=== PATIENT | male | born 1955 | race Caucasian/White ===

== ENCOUNTER 2023-07-31 07:55 | Outpatient (OUT) | payer MEDICARE, OTHER, SELFPAY ==
--- NOTE | 2023-07-31 07:58 | VEIN_ITS ---
Patient Name: JEAN MARIE MAST MR#: [id number] : 1955 Exam Date: 07/31/2023 Ordering Doctor: DR KARUNA MARISCAL D.P.M. RADIOLOGY REPORT PROCEDURE: [facility] - OFFICE VISIT INITIAL COMPARISON: None. PROGRESS NOTES: 68-year-old male who presents with a 3 year history right leg subcutaneous edema which has significantly progressed over the past year: Eating in an episode of cellulitis and abscess along the right medial lower leg requiring hospitalization for IV antibiotics. The patient developed multiple skin ulcerations along the medial right lower leg medial and lateral right ankle. The patient was referred by Dr. Mariscal where he was being treated for gout the patient describes right leg pain swelling and muscle cramps with intermittent pain rated as a 10/10 and muscle cramping primarily during the night. The patient's symptoms are significantly progressed with sitting or standing and are partially relieved by rest, leg elevation and compression wraps/compression stockings which she has worn for several years. The patient denies any signs and symptoms to suggest arterial ischemia. The patient describes a family history of cancer and diabetes in his father. Dementia hypertension and Crohn's disease in his mother. Current medical conditions are significant for gout for which he is on allopurinol, hypertension well controlled with amlodipine. History of kidney stones and hernia repair. See separate history and physical for medication list. No prior treatment for varicose or spider veins. The patient has worn compression wraps and stockings for several years. After review of nurse notes, history and physical exam I discussed at length the pathophysiology of venous hypertension and possible treatments, therapies and strategies available. We discussed at length the importance of elevating the lower extremities above the level of the heart, increased physical activity and compression stocking use. I did discuss with the patient that the amount of swelling on the right is not congruent with the amount of vein disease that he has. Central obstruction should be ruled out. We discussed that his swelling likely was multifactorial and likely related to hypertension, vein disease as well as in the edema.Treatment of the veins would likely improve but not resolve the swelling. We discussed surgical interventions including ligation stripping and phlebectomy. We discussed intravenous laser ablation and micro foam chemical ablation. Risks benefits and alternatives were discussed. The patient and the patient's 's questions were answered. Proper use of the compression stocking was discussed with the patient as well as strategies for reducing subcutaneous edema. Ultrasound venous reflux study performed the same day was discussed at length with the patient. The report demonstrates moderate right and mild left great saphenous vein venous insufficiency. Moderate right and mild left small saphenous vein venous insufficiency. Incompetent perforating veins subjacent to right leg wounds. Moderate right leg incompetent varicose veins PHYSICAL EXAM: The right leg demonstrates marked diffuse edema extending from the inguinal fold to the forefoot with pitting edema below the knee. Extensive erythema and skin thickening with some hemosiderin staining mid to distal lower leg. Recently healed ulcerations medial lateral ankle. There is a 4 x 3 cm eschar along the medial mid lower leg, healing ulceration. Scattered varicose veins. The left leg demonstrates mild scattered varicose veins. No subcutaneous edema, hemosiderin staining or active ulceration Both thighs, legs and feet were symmetrically warm to the touch. Good left posterior tibial and dorsalis pedis pulses . Right posterior tibial and dorsalis pedis pulses could not be palpated likely related to marked edema. VEIN/VC Facility EST Comprehensive IMPRESSION: 1. Moderate right great and small saphenous vein, mild left great and small saphenous vein venous insufficiency with dilatation and saphenofemoral/saphenous popliteal reflux 2. Moderate right incompetent lower extremity varicose veins 3. Marked diffuse right lower extremity subcutaneous edema 4. No definite flow significant arterial disease 5. CEAP: C6, Ep, Asp, Pr PLAN: 1. CT exam of the abdomen and pelvis with IV oral contrast to exclude central venous obstruction of the right leg 2. Endovenous laser ablation right great saphenous vein, right small saphenous vein and right incompetent perforating veins 3. Micro foam chemical ablation right leg incompetent varicose veins 4. Long-term use of bilateral thigh-high 20-30 mm compression stocking on the right 5. Leg elevation and increased physical activity for symptomatic relief Nurse notes, history and physical were reviewed and confirmed, see attached forms. The nurse was present throughout the physical exam and consultation Dictated by: Ari Wilson MD on 07/31/2023 at 10:06 Approved by: Ari Wilson MD on 07/31/2023 at 11:05
--- NOTE | 2023-07-31 07:58 | VEIN_ITS ---
Patient Name: JEAN MARIE MAST MR#: [id number] : 1955 Exam Date: 07/31/2023 Ordering Doctor: DR KARUNA MARISCAL D.P.M. RADIOLOGY REPORT PROCEDURE: VC EXT VENOUS REFLUX SHAINA LMTD COMPARISON: None. INDICATIONS: I83.813 Pain due to varicose veins of bilateral legs TECHNIQUE: Duplex imaging of the lower extremity to assess the deep and superficial venous system for the presence of deep or superficial venous incompetence and to document the location and severity of disease. The study includes evaluation of the great saphenous vein (GSV), anterior accessory saphenous vein (AASV) and small saphenous vein (SSV). Patient scanned in reverse Trendelenburg and standing. FINDINGS: RIGHT LOWER EXTREMITY: Saphenofemoral Junction Reflux: Yes 9.0mm 3.2 sec GSV: Diam (mm) Reflux/ Time (sec) Proximal Thigh 7.2 Yes 2.1 Mid Thigh 7.5 Yes 1.1 Distal Thigh 3.8 Yes 1.5 Prox Calf 3.5 No Mid Calf 3.4 No Saphenopopliteal Junction Reflux: 6.7mm Yes 2.3 SSV: Proximal Calf 6.0 Yes 1.6 Mid Calf 3.3 No AASV: Not present Thrombi: No acute or chronic thrombus visualized Compressibility: Normal Flow: Normal Admin Dir: Area of wound mid/med calf 5.0mm with 3.4s reflux. Prox/med calf 3.7mm with 1.6s reflux. Tech Note: Incompetent SFJ and SPJ. Avascular hypoechoic structure pop fossa 2.1 x 0.8 x 3.5 cm. Patent varicose vein prox/med calf 5.1mm with 1.8s reflux. Patent varicose vein medial knee 5.4mm with 1.2s reflux. Patent varicose vein mid/med thigh 6.5mm with 1.9s reflux. LEFT LOWER EXTREMITY: Saphenofemoral Junction Reflux: Yes 6.6 mm 1.2 sec GSV: Diam (mm) Reflux/Time (sec) Proximal Thigh 6.4 Yes 1.2 Mid Thigh 2.9 No Distal Thigh 3.2 No Prox Calf 3.0 Yes 1.1 Mid Calf 3.2 No Saphenopopliteal Junction Relux: 6.7 mm Yes 0.7 SSV: Proximal Calf 6.6 Yes 0.5 Mid Calf 1.9 No AASV: Not present Thrombi: No acute or chronic thrombus visualized Compressibility: Normal Flow: Rouleaux flow visualized in CFV. Admin Dir: Mid/med calf 3.3mm with 0s reflux. Tech Note: Incompetent SFJ and SPJ. Patent varicose vein mid/med thigh 2.1mm with 0.4s reflux. CONCLUSION: 1. Moderate right and mild left great saphenous vein venous insufficiency with dilatation and saphenofemoral junction reflux 2. Moderate right and mild left small saphenous vein venous insufficiency with dilatation saphenous popliteal junction reflux 3. Incompetent perforating veins subjacent to the patient's right leg wounds 4. Right leg incompetent varicose veins Dictated by: Ari Wilson MD on 07/31/2023 at 09:36 Approved by: Ari Wilson MD on 07/31/2023 at 09:39
== END 2023-07-31 07:56 | disposition home or self-care (01) ==
LOC: VC 07:55
PROVIDERS: PCP Podiatrist Foot & Ankle Surgery; Visit Provider Podiatrist Foot & Ankle Surgery
DX: I83.813 Varicose veins of bilateral lower extremities with pain (principal)
CPT/HCPCS: 93970; G0463

== ENCOUNTER 2023-08-04 07:31 | Outpatient (OUT) | payer MEDICARE, OTHER, SELFPAY ==
--- NOTE | 2023-08-04 | CT_ITS ---
[address] [address] Patient Name: JEAN MARIE MAST MRN: [id number] date: 1955 Sex: M Assigned Patient Location: LAB Current Patient Location: LAB Accession/Order Number: [id number] Exam Date: 08/04/2023 09:18 Report Date: 08/06/2023 08:29 At the request of: CYNTHIA BOWMAN Procedure: CT abdomen pelvis wo/w con EXAMINATION: CT abdomen pelvis wo/w con HISTORY: Compression Vein Lymphedema I89.0 COMPARISON: No relevant comparison available. TECHNIQUE: Axial, Coronal, and Sagittal images were obtained without and/or with IV contrast as indicated by examination type. Dose reduction techniques were achieved by using automated exposure control and/or adjustment of mA and/or kV according to patient size and/or use of iterative reconstruction technique. FINDINGS: LUNG BASES: Bronchiectasis and small area of soft tissue scarring or pleural thickening within left posterior costophrenic angle. LIVER: Incidental large hemangioma within right hepatic lobe, 11.2 cm in maximum diameter. Several benign-appearing cysts, largest is within posterior right hepatic lobe, 6.1 cm. BILIARY: No dilatation or calcification. PANCREAS: No lesion, fluid collection, or abnormal duct dilatation. SPLEEN: No enlargement or focal lesion. ADRENALS: No mass or enlargement. KIDNEYS: Nonobstructing 6 mm stone within right kidney. 3.0 cm cyst projecting from superior pole of left kidney. BOWEL/MESENTERY: No visible mass, obstruction, or bowel wall thickening. AORTA/VASCULAR: No aneurysm or dissection. No significant compression of the right or left iliac veins. RETROPERITONEUM: No mass or adenopathy. LYMPH NODES: No adenopathy. URINARY BLADDER: No visible focal wall thickening, lesion, or calculus. PELVIC ORGANS: No visible mass. Pelvic organs appropriate for patient age. ABDOMINAL WALL: Small fat filled right inguinal hernia without strangulation. BONES: No bony lesion or fracture. OTHER: Negative. CT/CT abdomen pelvis wo/w con IMPRESSION: 1. No compression of the right iliac veins to account for patient's symptoms. 2. Nonobstructing right nephrolithiasis. 3. Small fat filled right inguinal hernia without strangulation. Electronically authenticated by: MERCED LO Date: 08/06/2023 08:29
--- OUTSIDE RECORDS SUMMARY | 2023-08-04 07:35 | XMS_ITS ---
Patient Summarization (C-CDA 2.1 CCD) Created on: August 04, 2023 JEAN MARIE MAST : 1955 Sex: Male Author Organization Sample organization Care Team Providers Care Measurement And Sensing Technician Name Role Phone NONE, XXXX Primary Care Physician Unavailab trena Figueroa MD, Michelle Barlow Primary Care Provider Michelle Figeuroa MD Unavailable Michelle Figueroa Primary Care Physician [phone] Jhonatan Mariscal Admitting Unavailable Dolce, Jhonatan Richardson Attending Unavailable Dolelsie, Jhonatan Richardson Referring Unavailable Arnel Modi Attending Unavailable Taras BARBA Attending Unavailable Courtney BENOIT Attending Unavailable DolJhonatan zimmerman Consulting Unavailable Dwight Eddy Admitting Unavailable OJUKWU, Mbanefo Attending Unavailable Dolce, LALYM Jhonatan Richardson Consulting Unavailable Dolce, Jhonatan Richardson Consulting Unavailable Dolce, Jhonatan Richardson Consulting Unavailable Dolce, Jhonatan Richardson Consulting Unavailable Dolce, Jhonatan Richardson Consulting Unavailable Dolce, Jhonatan Richardson Consulting Unavailable Dolce, Jhonatan Richardson Consulting Unavailable Dolce, Jhonatan Richardson Consulting Unavailable Dolce, Jhonatan Richardson Consulting Unavailable Dolce, Jhonatan Dylan Consulting Unavailable Blank, Jean Marie S Consulting Unavailable Blank, Jean Marie S Consulting Unavailable Blank, Jean Marie S Consulting Unavailable Blank, Jean Marie S Consulting Unavailable Blank, Jean Marie S Consulting Unavailable Blank, Jean Marie S Consulting Unavailable Blank, Jean Marie S Consulting Unavailable Blank, Jean Marie S Consulting Unavailable Blank, Jean Marie S Consulting Unavailable Blank, Jean Marie S Consulting Unavailable DOLCE, JHONATAN Richardson Attending Unavailable MICHELLE FIGUEROA Attending Unavailable DEIDRA MONTOYA Attending Unavailable MICHELLE FIGUEROA Referring Unavailable POCOS, CYNTHIA Parrish Referring Unavailable POCOS, CYNTHIA Parrish Referring Unavailable POCOS, CYNTHIA Parrish Attending Unavailable MICHELLE FIGUEROA Referring Unavailable GERALD PADILLA Attending Unavailable SHERIE HOUGH Attending Unavailable POCTEJINDER, CYNTHIA Parrish Referring Unavailable SHERIE HOUGH Attending Unavailable POCTEJINDER, CYNTHIA Parrish Referring Unavailable ENRIQUETA SOSA Attending Unavailable ENRIQUETA SOSA Referring Unavailable SHERIE HOUGH Attending Unavailable POCOS, CYNTHIA Parrish Referring Unavailable DOLCE, JHONATAN Richardson Attending Unavailable GUZIK, LIZBETH Attending Unavailable POCOS, CYNTHIA Parrish Referring Unavailable MOREIRA, CHRIS Attending Unavailable POCOS, CYNTHIA Parrish Referring Unavailable POCOS, CYNTHIA Parrish Attending Unavailable DOLCE, JHONATAN Richardson Attending Unavailable MOREIRA, CHRIS Attending Unavailable POCOS, CYNTHIA Parrish Referring Unavailable GUZIK, LIZBETH Attending Unavailable POCOS, CYNTHIA Parrish Referring Unavailable PLEASNICK, MICHELE Parrish Attending Unavailab le POCOS, CYNTHIA Parrish Referring Unavailable GUZIK, LIZBETH Attending Unavailable POCOS, CYNTHIA Parrish Referring Unavailable PLEASNICK, MICHELE Parrish Attending Unavailab le POCOS, CYNTHIA Parrish Referring Unavailable PLEASNICK, MICHELE Parrish Attending Unavailab le POCOS, CYNTHIA Parrish Referring Unavailable PLEASNICK, MICHELE Parrish Attending Unavailab le POCOS, CYNTHIA Parirsh Referring Unavailable DOLCE, JHONATAN Richardson Attending Unavailable DOLCE, JHONATAN Richardson Attending Unavailable DOLCE, JHONATAN Richardson Attending Unavailable FIGUEROA, MICHELLE Barlow Attending Unavailable DOLCE, JHONATAN Richardson Attending Unavailable DOLCE, JHONATAN Richardson Attending Unavailable DOLCE, JHONATAN Richardson Attending Unavailable Allergies Allergy Classification Reported Allergen(s) Allergy Type Date of Onset Reaction(s) Facility (6 sources) Aspirin; Translations: [aspirin] Drug Allergy Unknown (qualifier value) [facility] (7 sources) Aluminum aspirin Drug Allergy 3 Hives [facility] Encounters Encounter Date Encounter Type Care Provider Facility Start: 09-12-2023 ambulatory Taras BARBA Facility :[facility] Start: 07-27-2023 End: 07-27-2023 ambulatory JHONATAN BAUTISTACE Not Available Start: 07-25-2023 End: 07-25-2023 ambulatory [facility] Work Phone: Start: 07-25-2023 End: 07-25-2023 Patient encounter procedure [facility] Infectious Disease Work Phone: Start: 07-18-2023 End: 07-18-2023 ambulatory JHONATAN Richardson DOLCE Not Available Start: 07-17-2023 End: 07-17-2023 ambulatory MICHELLE FIGUEROA Not Available Start: 07-11-2023 End: 07-11-2023 ambulatory JHONATAN BAUTISTACE Not Available Start: 07-06-2023 End: 07-10-2023 Evaluation and management of inpatient Jhonatan D Yanira Facility:[facility] [place] [place] Start: 07-06-2023 Emergency department patient visit Arnel Modi Facility:[facility] [place] [place] Start: 07-06-2023 End: 07-10-2023 Evaluation and management of inpatient Dwight Eddy [facility] Start: 07-04-2023 End: 07-04-2023 ambulatory JHONATAN D DOLCE Not Available Start: 07-03-2023 End: 07-04-2023 ambulatory Jhonatan D Dolce Facility:[facility] [place] [place] Start: 07-03-2023 End: 07-03-2023 Patient encounter procedure Jhonatan Mariscal [facility] Start: 07-03-2023 End: 07-03-2023 ambulatory JHONATAN D DOLCE Not Available Start: 06-26-2023 End: 06-26-2023 ambulatory MICHELE A PLEASNICK Not Available Start: 06-19-2023 End: 06-19-2023 ambulatory MICHELE A PLEASNICK Not Available Start: 06-12-2023 End: 06-12-2023 ambulatory MICHELE A PLEASNICK Not Available Start: 06-04-2023 End: 06-05-2023 ambulatory LIZBETH GUZIK Not Available Start: 05-22-2023 End: 05-22-2023 ambulatory MICHELE A PLEASNICK Not Available Start: 05-15-2023 End: 05-15-2023 ambulatory LIZBETH GUKASIAK Not Available Start: 05-07-2023 End: 05-08-2023 ambulatory CHRIS MOREIRA Not Available Start: 05-07-2023 End: 05-07-2023 ambulatory JHONATAN D DOLCE Not Available Start: 05-02-2023 End: 05-02-2023 ambulatory CYNTHIA Parrish POCOS Not Available Start: 05-01-2023 End: 05-01-2023 ambulatory CHRIS MOREIRA Not Available Start: 04-24-2023 End: 04-24-2023 ambulatory LIZBETH GUKASIAK Not Available Start: 04-23-2023 End: 04-23-2023 ambulatory JHONATAN D DOLCE Not Available Start: 04-16-2023 End: 04-17-2023 ambulatory SHERIE HOUGH Not Available Start: 04-10-2023 End: 04-10-2023 ambulatory ENRIQUETA SOSA Not Available Start: 04-10-2023 End: 04-10-2023 ambulatory SHERIE HOUGH Not Available Start: 04-02-2023 End: 04-03-2023 ambulatory SHERIE HOUGH Not Available Start: 04-02-2023 Bamboo flowsheet Gerald martinez MD Work Phone: [facility] Start: 04-02-2023 Bamboo flowsheet Gerald martinez MD Work Phone: [facility] Start: 04-02-2023 End: 04-02-2023 Office outpatient new 30 minutes Gerald Padilla MD Work Phone: [facility] Comment on above: Bilateral tinnitus ( Primary Dx); Sensorineural hearing loss (SNHL), bilateral Start: 04-02-2023 End: 04-02-2023 ambulatory GERALD PADILLA Not Available Start: 03-30-2023 Chart abstracting Gerald rodriguez MD Work Phone: [facility] Start: 03-26-2023 Chart abstracting Cynthia Puga s DO Work Phone: [facility] Start: 03-21-2023 End: 03-21-2023 ambulatory CYNTHIA HENDERSON Not Available Start: 03-21-2023 End: 03-21-2023 Patient encounter procedure Cynthia Henderson DO Work Phone: [facility] Comment on above: Hip pain, bilateral (Primary Dx); Left hip pain; Lumbar spondylosis; Degeneration of lumbar intervertebral disc; Trochanteric bursitis of both hips; Left hip impingement syndrome; Right hip impingement syndrome Start: 03-21-2023 End: 03-21-2023 ambulatory CYNTHIA HENDERSON Not Available Start: 03-20-2023 End: 03-20-2023 ambulatory DEIDRA MONTOYA Not Available Start: 03-13-2023 End: 03-13-2023 ambulatory MICHELLE FIGUEROA Not Available Start: 02-27-2023 End: 02-27-2023 ambulatory JHONATAN MARISCAL Not Available Start: 02-09-2023 End: 02-09-2023 ambulatory JHONATAN MARISCAL Not Available Start: 08-15-2022 End: 08-16-2022 ambulatory Courtney BENOIT Facility[facility] Start: 11-21-2021 End: 11-21-2021 Patient encounter procedure Taras BARBA [facility] Start: 11-15-2021 End: 11-15-2021 Patient encounter procedure Taras BARBA [facility] Immunizations Immunization Date Immunization Notes Care Provider Mercedes perez 07-11-2013 tetanus toxoid, redu troy diphtheria toxoid, and acellular pertussis vaccine, adsorbed Taras JAMESON [facility] Medications Current Medications Medication Drug Class(es) Dates Sig (Normalized) Sig (Original) acetaminophen 325 mg oral tablet (1 source) Start: 07-10-2023 take 2 tablets by mouth every six hours as needed for pain acetaminophen 325 mg Tab 650 mg = 2 tab(s), Oral, q6hr, PRN Pain, Refills(s) 0 Start Date: 07/10/23 Status: Ordered Acidophilus Extra Strength oral capsule (1 source) Start: 07-06-2023 take 1 capsule by mouth once daily Acidophilus Extra Strength oral capsule 1 cap(s), Oral, Daily, Refill(s) 0 Start Date: 07/06/23 Status: Ordered allopurinol 200 mg oral tablet (12 sources) Xanthine Oxidase Inhibitor Start: 07-25-2023 take 200 mg by mouth once daily Allopurinol Active 200 MG PO Daily July 25, 2023 12:00am Start: 11-26-2019 take 2 tablets by mo ut once daily allopurinol 100 mg Tab 200 mg = 2 tab(s), Oral, Daily, Refills(s) 0 Start Date: 11/26/19 Status: Ordered allopurinol (Zyl oprim) 100 MG tablet 1 (one) time each day at the same time. 0 Active amLODIPine 5 mg oral tablet (9 sources) Dihydropyridine Calcium Channel Andres Start: 02-09-2023 End: 02-09-2024 take 5 mg by mouth once daily Amlodipine Active 5 MG PO Daily July 25, 2023 12:00am Centrum Silver (3 sources) Start: 08-03-2015 Centrum Silver Refill(s) 0, Prophylaxis Start Date: 08/03/15 Status: Ordered furosemide 40 mg oral tablet (3 sources) Loop Diuretic Start: 11-26-2019 furosemide 40 mg Tab 40 mg = 1 tab(s), Oral, As Directed, prn swelling, Refills(s) 0 Start Date: 11/26/19 Status: Ordered hydroCHLOROthiazide 25 mg oral tablet (7 sources) Thiazide Diuretic Start: 07-19-2022 take 1 tablet by mouth in the morning hydroCHLOROthiazide (HYDRODiuril) 25 MG tablet Indications: Benign essential HTN (CMS/HCC) Take 1 tablet (25 mg) by mouth in the morning. 90 tablet 2 07/19/2022 Active Lactobacillus acidophilus (1 source) Start: 07-25-2023 take 1 tablet by mouth once daily Lactobacillus Acidophilus (Acidophilus) tablet,chewable Active 1 TAB PO Daily July 25, 2023 12:00am linezolid 600 mg oral tablet (1 source) Oxazolidinone Antibacterial Start: 07-10-2023 End: 07-24-2023 take 1 tablet by mouth every twelve hours Zyvox 600 mg Tab 600 mg = 1 tab(s), Oral, q12hr, X 14 day(s), # 28 tab(s), Refills(s) 0, Pharmacy: [facility], 185.4, cm, 07/06/23 12:13:00 EDT, Height/Length Dosing, 109.4, kg, 07/06/23 12:13:00 EDT, Weight Dosing Start Date: 07/10/23 Stop Date: 07/24/23 Status: Ordered lisinopril 40 mg oral tablet (12 sources) Angiotensin Converting Enzyme Inhibitor Start: 07-25-2023 take 40 mg by mouth once daily Lisinopril Active 40 MG PO Daily July 25, 2023 12:00am Start: 07-06-2023 take 1 tablet by kriby th once daily lisinopril 40 mg Tab 40 mg = 1 tab(s), Oral, Daily, # 90 tab(s), Refills(s) 0 Start Date: 07/06/23 Status: Ordered Start: 11-26-2019 take 2 tablets by [facility] once daily lisinopril 20 mg Tab 40 mg = 2 tab(s), Oral, Daily, Refills(s) 0 Start Date: 11/26/19 Status: Ordered lisinopril 40 MG tablet 1 (one) time each day at the same time. 0 Active meloxicam 15 mg oral tablet (7 sources) Nonsteroidal Anti-inflammatory Drug Start: 03-21-2023 End: 04-20-2023 take 1 tablet by mouth at mealtime meloxicam (Mobic) 15 MG tablet Indications: Lumbar spondylosis , Trochanteric bursitis of both hips Take 1 tablet (15 mg) by mouth in the morning. With food.. 30 tablet 2 03/21/2023 04/20/2023 Active omeprazole 20 mg delayed release oral capsule (12 sources) Proton Pump Inhibitor Start: 07-25-2023 take 20 mg by mouth once daily Omeprazole Active 20 MG PO Daily July 25, 2023 12:00am Start: 07-06-2023 take 1 capsule by [facility] once daily omeprazole 20 mg Cap-DR 20 mg = 1 cap(s), Oral, Daily, Refills(s) 0 Start Date: 07/06/23 Status: Ordered Start: 11-26-2019 Prilosec Refil ls(s) 0 Start Date: 11/26/19 Status: Ordered omeprazole (PriL OSEC) [address] capsule 1 (one) time each day at the same time. 0 Active predniSONE 10 mg oral tablet (9 sources) Start: 03-21-2023 predniSONE (De ltasone) 10 MG tablet Indications: Lumbar spondylosis , Trochanteric bursitis of both hips As directed orally - Take 6 tabs day 1 and 2, 5 tabs day 3 and 4, 4 tabs day 5 and 6, 3 tabs day 7 and 8, 2 tabs day 9 and 10, and 1 tab day 11 and 12. 42 tablet 0 03/21/2023 Active Start: 03-13-2023 End: 03-21-2023 take 2 tablets by mouth in the morning predniSONE (Deltasone) 20 MG tablet Indications: Left hip pain Take 2 tablets (40 mg) by mouth in the morning for 5 days. 10 tablet 0 03/13/2023 03/21/2023 Discontinued (Therapy completed) triamcinolone acetonide 5 mg/ml topical cream (1 source) Corticosteroid Start: 07-25-2023 Triamcinolone Acetonide Active 1 APPLIC TOPICAL Twice daily July 25, 2023 12:00am Payers Date Payer Category Payer Unknown [employer] [facility] [id number] 2022-Present [id number] [facility] [place] [address] [id number] 2021 Medicare [id number] 2021 Medicare MEDICARE MEDICAR E PART B [id number] 2021-[place] [address] [address] Medicare [id number] 2021 Medicare [id number] 1955 Unknown [id number] 2.16.840.1.562549.3.579.2.727 1955 Unknown [id number] 2.16.840.1.811252.3.579.2.727 1955 Unknown [id number] 2.16.840.1.178175.3.579.2.727 1955 Unknown [id number] 2.16.840.1.466817.3.579.2.727 1955 Unknown [id number] 2.16.840.1.166176.3.579.2.125 9 1955 Unknown [id number] 2.16.840.1.649289.3.579.2.125 9 1955 Unknown [id number] 2.16.840.1.791974.3.579.2.125 9 1955 Unknown [id number] 2.16.840.1.039740.3.579.2.125 9 1955 Unknown [id number] 2.16.840.1.285427.3.579.2.125 9 1955 Unknown [id number] 2.16.840.1.174486.3.579.2.125 1956 Unknown [id number] 2.16.840.1.338967.3.579.2.125 1956 Unknown [id number] 2.16.840.1.208726.3.579.2.125 1956 Unknown [id number] 2.16.840.1.039583.3.579.2.125 1956 Unknown [id number] 2.16.840.1.103187.3.579.2.125 1956 Unknown [id number] 2.16.840.1.094807.3.579.2.125 1956 Unknown [id number] 2.16.840.1.096307.3.579.2.125 1956 Unknown [id number] 2.16.840.1.598875.3.579.2.125 1956 Unknown [id number] 2.16.840.1.124925.3.579.2.125 1956 Unknown [id number] 2.16.840.1.680602.3.579.2.125 1956 Unknown [id number] 2.16.840.1.891039.3.579.2.125 1956 Unknown [id number] 2.16.840.1.282450.3.579.2.125 1956 Unknown [id number] 2.16.840.1.526550.3.579.2.125 1956 Unknown [id number] 2.16.840.1.492829.3.579.2.125 9 1956 Unknown [id number] 2.16.840.1.991611.3.579.2.125 9 1956 Unknown [id number] 2.16.840.1.822285.3.579.2.125 9 1956 Unknown [id number] 2.16.840.1.695716.3.579.2.125 9 1956 Unknown [id number] 2.16.840.1.827329.3.579.2.125 9 1956 Unknown [id number] 2.16.840.1.523805.3.579.2.125 9 1956 Unknown [id number] 2.16.840.1.459512.3.579.2.125 9 1956 Unknown [id number] 2.16.840.1.317444.3.579.2.125 9 1956 Unknown [id number] 2.16.840.1.396514.3.579.2.125 9 1956 Unknown [id number] 2.16.840.1.387131.3.579.2.125 9 1955 Unknown [id number] 2.16.840.1.503095.3.579.2.125 9 1956 Unknown [id number] 2.16.840.1.389763.3.579.2.125 9 1956 Unknown [id number] 2.16.840.1.130057.3.579.2.125 9 1955 Unknown [id number] 2.16.840.1.867989.3.579.2.125 9 Unknown Regular Insurance [id number] Plan of Treatment Date Care Activity Detail Author Start: 06-08-2023 Medicare Annual Wellness (AWV) Medicare Annual Wellness (AWV) [facility] Start: 04-23-2023 End: 04-23-2023 Patient encounter procedure 04/23/2023 3:45 PM EST Office Visit [facility] [address] [place] [id number] Cynthia Henderson DO [address] [place] [address] [facility] Start: 04-02-2023 End: 04-02-2023 ambulatory 04/02/2023 6:00 PM EST Evaluation [facility] [address] [place] [phone] Sherie Hough, PT [address] [place] [address] [facility] Start: 04-02-2023 End: 04-02-2023 Patient encounter procedure [facility] Comment on above: Arrived Start: 10-20-2022 Influenza vaccination Influenza Vacc ine (#1) [facility] Start: 02-23-2021 Pneumococcal Vaccine : 65+ Years (1 - PCV) Pneumococcal Vaccine: 65+ Years (1 - PCV) [facility] Start: 1955 Screening for malign ant neoplasm of colon [facility] XR Lumbar spine 2 or 3 Views XR lumbar spine 2 or 3 views Imaging Routine Hip pain, bilateral 03/21/2023 2:51 PM EST [facility] XR Pelvis AP and Hip - bilateral GE 2 Views XR hips bilateral 2 views Imaging Routine Hip pain, bilateral 03/21/2023 2:51 PM EST [facility] Work Phone: Problems Active Problems Problem Classification Problem Date Documented Date Episodic/Chronic Acute and unspecified renal failure (1 source) Acute renal failure syndrome; Translations: [Acute kidney failure, unspecified] Onset: 07-06-2023 Episodic Calculus of urinary tract (19 sources) Kidney stone; Translations: [Calculus of kidney] Onset: 11-21-2021 10-04-2018 Episodic Esophageal disorders (7 sources) Gastroesophageal reflux disease without esophagitis; Translations: [Gastro-esophageal reflux disease without esophagitis] Onset: 08-04-2022 08-04-2022 Chronic Essential hypertension (12 sources) Hypertensive disorder; Translations: [Essential hypertension] Onset: 08-04-2022 09-05-2009 Chronic Gout and other crystal arthropathies (4 sources) Gout 08-01-2015 Chronic Hyperplasia of prostate (13 sources) Benign prostatic hypertrophy with outflow obstruction; Translations: [Benign prostatic hyperplasia with lower urinary tract symptoms] Onset: 11-21-2021 10-04-2018 Chronic Open wounds of extremities (1 source) Open wound of right ankle; Translations: [Unspecified open wound, right ankle, initial encounter] Onset: 07-09-2023 Episodic Other connective tissue disease (2 sources) Bilateral trochanteric bursitis; Translations: [Trochanteric bursitis, right hip] 03-21-2023 Episodic Other diseases of kidney and ureters (3 sources) Urinary tract obstruction; Translations: [Other obstructive and reflux uropathy] Onset: 11-15-2021 Episodic Other ear and sense organ disorders (2 sources) Sensorineural hearing loss, bilateral; Translations: [Sensorineural hearing loss, bilateral] 04-02-2023 Chronic Other ear and sense organ disorders (4 sources) Bilateral tinnitus; Translations: [Tinnitus, bilateral] Onset: 04-02-2023 04-02-2023 Episodic Other nervous system disorders (7 sources) Chronic pain; Translations: [Other chronic pain] Onset: 08-04-2022 08-04-2022 Chronic Other non-traumatic joint disorders (4 sources) Hip pain; Translations: [Pain in right hip] 03-21-2023 Episodic Other non-traumatic joint disorders (4 sources) Enthesopathy of hip region; Translations: [Other specified joint disorders, left hip] 03-21-2023 Episodic Other nutritional; endocrine; and metabolic disorders (1 source) Obesity; Translations: [Obesity, unspecified] Onset: 07-09-2023 Chronic Skin and subcutaneous tissue infections (2 sources) Cellulitis of lower limb; Translations: [Cellulitis of right lower limb] Onset: 07-06-2023 Episodic Spondylosis; intervertebral disc disorders; other back problems (4 sources) Lumbar spondylosis; Translations: [Spondylosis without myelopathy or radiculopathy, lumbar region] 03-21-2023 Chronic Unclassified (4 sources) Asymptomatic microscopic hematuria 11-26-2019 Past or Other Problems Problem Classification Problem Date Documented Da te Episodic/Chronic Genitourinary symptoms and ill-defined conditions (8 sources) Microscopic hematuria; Translations: [Asymptomatic microscopic hematuria] Onset: 11-21-2021 Episodic Procedures Date Procedure Procedure Detail Performing Clinician Start: 03-21-2023 End: 03-21-2023 Radex spine lumbosacral 2/3 views Cynthia Parrish Jessicatejinder DO Work Phone: Start: 09-08-2015 Cysto, left ureteral stent removal, left RGP, left ureteronephroscopy with Holmium laser ablation, multiple basket extraction of stone,fragments, replacement of JJ ureteral stent under fluoroscopic guidance. Taras JAMESON Start: 08-04-2015 Cystoscopy Taras SHAKIRA MOORE Comment on above: Left Stent Insertion Hernia of abdominal cavity (disorder) Taras BARBA Results Test Name Value Interpretation Reference Range Facility Referrals Officeon Referrals Office [id number] [id number]#[id number] TIFF Normal [facility] General Message Officeon General Message Office --- --- --- --- - -- --- --- --- --- From: Archie Hilton To: JEAN MARIE MAST SR Sent: 07/11/23 02:31:06 AM EDT Subject: Discharge Summary Ready to View A summary regarding your recent visit is available in the Documents section of your health record. Normal [facility] Consultation Noteon 07-10-19 Consultation Note Patient: JEAN MARIE MAST SR Age: 68 years Sex: Male : 1955 Associated Diagnoses: None Author: Jean Marie Mccullough M.D History of Present Illness Patient admitted back on the with right lower extremity cellulitis. He had seen Dr. Mariscal earlier in the week and was given Augmentin without significant improvement. Patient had subjective fevers or chills. He had a little that was ultimately ruptured and is growing scant growth growth of coagulase-negative staph. Patient overall is feeling better. Fevers and chills have resolved Review of Systems Constitutional: Negative except as documented in history of present illness. ROS reviewed as documented in chart Health Status Allergies: Allergic Reactions (Selected) Severity Not Documented Aspirin- Unknown. Current medications: Medications (13) Active Scheduled: (8) allopurinol 100 mg Tab [F] 200 mg 2 tab(s), Oral, Daily amLODIPine 5 mg Tab [F] 5 mg 1 tab(s), Oral, Daily ertapenem (Invanz) + Sodium Chloride 0.9% Minibag 50 mL 1,000 mg 1 EA, IV Piggyback, Daily heparin 5,000 units/mL Inj [F] 5,000 unit(s) 1 mL, SubCutaneous, q8hrFT lactobacillus acidophilus and bulgaricus Tab [F] 1 tab(s), Oral, Daily pantoprazole [address] Tab [F] 40 mg 1 tab(s), Oral, Daily vancomycin + Generic Diluent 300 mL 1,500 mg 300 mL, IV Piggyback, q24hr vancomycin PHARMACY TO DOSE [F] PHARMACY TO DOSE, IV, As Directed Continuous: (0) PRN: (5) acetaminophen 325 mg Tab UD [F] 650 mg 2 tab(s), Oral, q6hr Al hydroxide/Mg hydroxide/simethicone 200 mg-200 mg-20 mg/5 mL Oral Susp 30 mL [F] 30 mL, Oral, q6hr hydrALAZINE 20 mg/mL Inj [F] 10 mg 0.5 mL, IV Push, q6hr magnesium hydroxide 8% Oral Susp 30 mL [F] 30 mL, Oral, q6hr ondansetron 2 mg/mL Inj [F] 4 mg 2 mL, IV Push, q6hr Problem list: All Problems Asymptomatic microscopic hematuria / SNOMED CT 7369035639 / Confirmed BPH with urinary obstruction / SNOMED CT 0029846112 / Confirmed kidney stones / SNOMED CT [id number] / Confirmed Histories Past Medical History: Active kidney stones (479381839) Resolved HTN - Hypertension (3052138169): Resolved. Gout ([id number]): Resolved. Family History: Kidney stone Mother Hypertension Mother Diabetes mellitus type 2 Father Procedure history: Cysto, left ureteral stent removal, left RGP, left ureteronephroscopy with Holmium laser ablation, multiple basket extraction of stone,fragments, replacement of JJ ureteral stent under fluoroscopic guidance. on 09/08/2015 at 60 Years. Cystoscopy ([id number]) on 08/04/2015 at 60 Years. Comments: 08/04/2015 17:56 EDT - Maurice ALMAGUER, Marilyn Left Stent Insertion Abdominal hernia ([id number]). Physical Examination Vital Signs 07/10/2023 12:01 EDT Heart Rate Monitored 79 bpm 07/10/2023 12:00 EDT Temperature Axillary 36.3 DegC 07/10/2023 12:00 EDT Systolic Blood Pressure 142 mmHg HI Diastolic Blood Pressure 86 mmHg 07/10/2023 7:50 EDT Temperature Axillary 36.8 DegC VA 07/09/2023 19:21 EDT Temperature Axillary 36.7 DegC 07/09/2023 15:10 EDT Temperature Axillary 36.8 DegC VA 07/09/2023 11:55 EDT Temperature Axillary 36.6 DegC 07/09/2023 7:26 EDT Temperature Axillary 36.8 DegC HI General: Alert and oriented. Eye: Pupils are equal, round and reactive to light. HENT: Normocephalic. Neck: Supple. Respiratory: Lungs are clear to auscultation. Cardiovascular: Normal rate. Gastrointestinal: Soft, Non-tender, Non-distended. Integumentary: Right lower extremity erythematous changes that are raised with bulla rupture noted with serosanguineous drainage. Bruising over the right ankle he states that is from a ankle boot that he was wearing. Some mild swelling noted with warmth noted over the erythematous areas. Demarcated erythematous. Erythematous areas noted his erythematous areas are well-demarcated. Review / Management Results review: All Results 07/09/2023 12:52 EDT Wound Culture POS (In Progress) 07/07/2023 5:35 EDT WBC 8.1 E9/L HGB 13.8 gm/dL Platelet 205.0 E9/L BUN 27 mg/dL HI Creatinine 1.6 mg/dL HI 07/06/2023 12:34 EDT Blood Culture Charcoal NEG (In Progress) 07/06/2023 12:25 EDT Blood Culture Charcoal NEG (In Progress) , Culture RLE: Scant growth of Staphylococcus species coagulase negative. Impression and Plan Diagnosis Erysipelas Right Leg. Course: Progressing as expected. Orders Patient broad-spectrum IV antibiotics. Blood cultures remain negative. Patient clinically improving. Continue to spread that was apparently present has resolved. Well-demarcated areas of skin involvement make infection seem more consistent with erysipelas. Will check ASO titer but it is noted that he has coagulase-negative staph that is growing scantly from the ruptured bulla. ? If this is conlonizer. Either way oral linezolid would be appropriate for discharge for 2 weeks. Patient can follow-up with me 2 weeks at that time we can reevaluate whether or not further antibiotics are needed.. Normal [facility] Comment on above: Result Comment: Elec tronically Signed By: Sadia Shannon, Jean Marie Meier\.br\Date and Time Signed: 07/10/23 14:43 EDT Discharge Instructionson Discharge Instructions [id number] TIFF Normal [facility] Discharge Note-Nursingon Discharge Note-Nursing JEAN MARIE MAST SR, DOB:1955 Visit Date:07/06/2023 Inpatient Discharge Instructions Your Care Team Admitting Physician - Dwight Eddy DO Consulting Physician - Jean Marie Mccullough M.D DPM, Jhonatan Brandon MD, [facility]. Reason for Your Visit pt reports he saw Yanira in this last week for cellulitis of RLE. Pt reports on ABX and not improving. Yanira told him to come to ED due to no improvement in infection. Chills and fevers sunday. denies n/v. Your Diagnosis Cellulitis of right leg Wound of right ankle Acute kidney injury Obese HTN (hypertension) BPH with urinary obstruction Cellulitis - Leg Lower leg pain-swelling Other obstructive and reflux uropathy Tests Performed ASO Titer -- Results Pending -- Vancomycin Level Trough -- Results Pending -- MRI Foot w/ + w/o Contrast Right MRI Tibia/Fibula w/ + w/o Contrast Right XR Foot 3+ Views Right XR Tib/Fib Right 2 View Please visit your patient portal for your results or contact your primary care physician. This Is Your Medications List acetaminophen (acetaminophen 325 mg Tab) allopurinol (allopurinol 100 mg Tab) amlodipine (amLODIPine 5 mg Tab) lactobacillus acidophilus (Acidophilus Extra Strength oral capsule) linezolid (Zyvox 600 mg Tab) lisinopril (lisinopril 40 mg Tab) omeprazole (omeprazole 20 mg Ruddy-) [Image Removed: STOP]Stop taking these medications hydrochlorothiazide (hydrochlorothiazide 25 mg Tab) meloxicam (meloxicam 15 mg Tab) Procedure History Cysto, left ureteral stent removal, left RGP, left ureteronephroscopy with Holmium laser ablation, multiple basket extraction of stone,fragments, replacement of JJ ureteral stent under fluoroscopic guidance. (09/08/2015), Cystoscopy (08/04/2015), Abdominal hernia. Discharge Vitals Temperature (Axillary) 36.3 ?C Heart Rate (Monitored) 79 Respiratory Rate 18 Blood Pressure 142/86 Weight 108.3 kg What to do next Instructions From Your Doctor Event Name Event Result Discharge Activity Ambulate as tolerated, Activity as tolerated Discharge Diet(s) Low Sodium- 2000 mg Pending Diagnostic Test Results Wound culture Pharmacy Information [facility] Previously Scheduled Follow-Up Appointments Sunday 3:30 PM EDT With: JAMESON SUH, Taras Duncan Where: [facility] Inpatient Clinical Summaryon 07-10-2023 Inpatient Clinical Summary [address] [address] Clinical Summary Person Information: Name: JEAN MAREI MAST SR Age: 68 Years : 1955 Sex: Male PCP: Michelle Figueroa MD Marital Status: Race: White Ethnicity: Non- or Language: Nigerien Visit Id: Visit Reason: Cellulitis - Leg; Lower leg pain-swelling; SENT BY DR MARISCAL, LEG PAIN Speciality: Acuity: Enc Type: Inpatient Med Service: Medical Arrival: 07/06/2023 12:00:42 Discharge: Dispo Type: Admitted as IP to this [facility] Address: [address] [place] [address] Provider Notes: Diagnosis: 1:Cellulitis of right leg; 2:Wound of right ankle; 3:Acute kidney injury; 4:Obese; 5:HTN (hypertension); 6:BPH with urinary obstruction; Other obstructive and reflux uropathy Problems Active Asymptomatic microscopic hematuria kidney stones BPH with urinary obstruction Smoking Status: Former Smoker Functional Status: Sensory Deficits: History of Falls: Mobility Assistance Prior to Admission: ADLs: Independent Current Level of Assistance for Self-Care/Mobility: Cognitive Status: Oriented x 3 Allergies aspirin (Unknown) Measurements: Height: 185 cm Weight: 108.6 kg Blood Pressure: 142 mmHg / 86 mmHg BMI: 32.55 kg/m2 Procedures No Procedures Documented Immunizations No Immunizations Documented This Visit Final Med List: acetaminophen (acetaminophen 325 mg Tab) 2 Tablets By Mouth every 6 hours as needed Pain. allopurinol (allopurinol 100 mg Tab) 2 Tablets By Mouth every day. amlodipine (amLODIPine 5 mg Tab) 1 Tablets By Mouth every day. lactobacillus acidophilus (Acidophilus Extra Strength oral capsule) 1 Capsules By Mouth every day. linezolid (Zyvox 600 mg Tab) 1 Tablets By Mouth every 12 hours for 14 Days. Refills: 0. lisinopril (lisinopril 40 mg Tab) 1 Tablets By Mouth every day. omeprazole (omeprazole 20 mg Cap-DR) 1 Capsules By Mouth every day. Care Team Members: Attending Physician: Dwight Eddy DO Consulting Physician: Aleksandr SUH, Dixie Cartagena; Jhonatan Mariscal DPM; Jean Marie Mccullough M.D Referring Physician: Follow up: With: Address: When: Dixie Brandon [address] [place] [address] Business (1) Within 1 to 2 weeks Comments: Call for followup appointment With: Address: When: Jean Marie Mccullough [address] [place] [address] Business (1) 07/23/2023 1:45 PM With: Address: When: Michelle Figueroa [address] [place] [address] Business (1) 07/17/2023 10:00 AM With: Address: When: [facility]honatan [facility], [address] [place] [address] [address], [place] [address] 07/11/2023 8:20 AM Type Location Start [facility] Office Visit [facility] 09/12/2023 3:30 PM 09/12/2023 3:45 PM Confirmed Patient Education Information: Cellulitis, Adult, Estu-tu-Pcsz Normal [facility] Inpatient Patient Summaryon 07-10-2023 Inpatient Patient Summary [address] [address] Patient Discharge Instructions PERSON INFORMATION Name: JEAN MARIE MAST SR Date of : 1955 Current Date: 07/10/2023 15:42:24 PHYSICIANS Admitting Physician: Dwight Eddy DO Primary Care Physician: Michelle Figueroa MD PCP Comment: Discharge Diagnosis: 1:Cellulitis of right leg; 2:Wound of right ankle; 3:Acute kidney injury; 4:Obese; 5:HTN (hypertension); 6:BPH with urinary obstruction; Other obstructive and reflux uropathy Condition at Discharge: Improved JEAN MARIE MAST SR has been given the following list of follow-up instructions, prescriptions, and patient education materials: PATIENT FOLLOW-UP INFORMATION Diet: Low Sodium- 2000 mg Discharge Activity: Ambulate as tolerated, Activity as tolerated Discharge Restrictions: Wound Care Instructions: Remove Your Dressing In Days Call Your Doctor For: IF UNABLE TO CONTACT YOUR PHYSICIAN AND YOU FEEL IT IS AN EMERGENCY, GO TO THE NEAREST EMERGENCY ROOM OR CALL 911 Home Treatment: Devices/Equipment: None Special Services: Additional Instructions: Primary Care Physician to provide the following pending test results: Wound culture Follow up: With: Address: When: Dixie Brandon [address] [place] [id number] Business (1) Within 1 to 2 weeks Comments: Call for followup appointment With: Address: When: Jean Marie Mccullough [address] [facility] [place], [place] [id number] Business (1) 07/23/2023 1:45 PM With: Address: When: Michelle Figueroa [address] [place] [address] Business (1) 07/17/2023 10:00 AM With: Address: When: Jhonatan Yanira RENZO - [facility], [facility], [address], [place] [address] 07/11/2023 8:20 AM In the event that this physician does not participate in your insurance network, please consult with your insurance company to find a nearby participating provider. Type Location Start [place] [facility] Office Visit [facility] [place] [place] LIZETH [place] 09/12/2023 3:30 PM 09/12/2023 3:45 PM Confirmed Comment: PRO Acevedo SR, MICHAEL, have received the attached patient education materials/instructions and have verbalized understanding: Patient Signature Date Clinican/Nurse Signature _ Date HERE ARE THE MEDICATION CHANGES THAT OCCURRED DURING YOUR HOSPITAL STAY New Medications [facility] 1985, [address] [facility][[address] 3] [place], [place] [id number], [phone] linezolid (Zyvox 600 mg Tab) 1 Tablets By Mouth every 12 hours for 14 Days. Refills: 0. Last Dose: __Next Dose: __ Other Medications acetaminophen (acetaminophen 325 mg Tab) 2 Tablets By Mouth every 6 hours as needed Pain. Last Dose: __Next Dose: __ Medications to Continue with No Changes Other Medications allopurinol (allopurinol 100 mg Tab) 2 Tablets By Mouth every day. Last Dose: __Next Dose: __ amlodipine (amLODIPine 5 mg Tab) 1 Tablets By Mouth every day. Last Dose: __Next Dose: __ lactobacillus acidophilus (Acidophilus Extra Strength oral capsule) 1 Capsules By Mouth every day. Last Dose: __Next Dose: __ lisinopril (lisinopril 40 mg Tab) 1 Tablets By Mouth every day. Last Dose: __Next Dose: __ omeprazole (omeprazole 20 mg Cap-DR) 1 Capsules By Mouth every day. Last Dose: __Next Dose: __ No Longer Take the Following Medications hydrochlorothiazide (hydrochlorothiazide 25 mg Tab) 1 Tablets By Mouth every day. meloxicam (meloxicam 15 mg Tab) 1 Tablets By Mouth every day. Comment: MEDICATION LIST PROVIDED FOR YOU IS A LIST OF YOUR CURRENT MEDICATIONS. PLEASE CARRY THIS WITH YOU AT ALL TIMES. acetaminophen (acetaminophen 325 mg Tab) 2 Tablets By Mouth every 6 hours as needed Pain. allopurinol (allopurinol 100 mg Tab) 2 Tablets By Mouth every day. amlodipine (amLODIPine 5 mg Tab) 1 Tablets By Mouth every day. lactobacillus acidophilus (Acidophilus Extra Strength oral capsule) 1 Capsules By Mouth every day. linezolid (Zyvox 600 mg Tab) 1 Tablets By Mouth every 12 hours for 14 Days. Refills: 0. lisinopril (lisinopril 40 mg Tab) 1 Tablets By Mouth every day. omeprazole (omeprazole 20 mg Cap-DR) 1 Capsules By Mouth every day. Pharmacy Information: [facility] Comment: PATIENT EDUCATION INFORMATION Instructions: Cellulitis, Adult Cellulitis is a skin infection. The infected area is often warm, red, swollen, and sore. It occurs most often in the arms and lower legs. It is very import (more content not included)... [facility] Interdisciplinary Note - Justin e Manageron 07-10-2023 Interdisciplinary Note - Steam Hoist Operator Pt is asleep in bed, no family present. Previously rounded with Dr. Urena and aware of plan for ID to see today and possible DC home later today, Contact information provided and white board updated. previously declined any concerns or DC needs. CRM following CRM returned to pt room, pt and just met with Dr. Mccullough. Aware of plan for oral antibiotic Linzolid at [place], and plan to DC home today. Pt and are agreeable to plan, and declines any further concerns or needs. Per Dr. Mccullough , Linzolid will need to be check for availability and check to see if need prior auth. CRM will check and update pt once known. Nursing updated. CRM returned call to pt room, updated on Linzolid cost checked at pt preferred [facility], with his insurance was over $400, but with good rx will be down to $51.50 and they have in stock currently. Pt updated on cost and pt is ok with cost. Nursing updated on DC plan [facility] Comment on above: Result Comment: Elec tronically Signed By: Chasidy ALMAGUER, Alaina\.joelle\Date and Time Signed: 07/10/23 15:15 EDT Monitor Recordon 07-10-2023 Monitor Record [id number] TIFF [facility] Monitor Record [id number] TIFF [facility] Progress Note-Physicianon Progress Note-Physician Assessment/Plan 68-year-old male with history of hypertension, gout, kidney stones, GERD presented with complaints of right leg swelling, redness, pain, that failed outpatient treatment with oral antibiotics developed a fever and nausea and was admitted with acute cellulitis of the right leg secondary to infected right ankle wound, acute kidney injury, 1. Cellulitis of right leg (L03.115: Cellulitis of right lower limb) Acute cellulitis of the right leg?involving the ankle and foot. Present on admission. Treating with IV Invanz and vancomycin. Seen by printing machine mechanic and had a bedside incision and drainage of blister/bullae. Status post wound dressing. MRI does not show any deep tissue abscess of bone involvement/osteomyelit is. Infectious disease consult pending. Vascular surgery consult?can be done as outpatient. Ordered: [facility] Hospital Care/Day Moderate 35 Minutes 31520 2. Wound of right ankle (S91.001A: Unspecified open wound, right ankle, initial encounter) Continue wound dressings. Wound cultures so far not isolating any organisms. Ordered: [facility] Hospital Care/Day Moderate 35 Minutes 06884 Wound Culture 3. Acute kidney injury (N17.9: Acute kidney failure, unspecified) Acute kidney injury?secondary to ATN from above infection, diuretics and lisinopril. Improved. Lisinopril and hydrochlorothiazide suspended. Treated with IV fluid. Ordered: [facility] Hospital Care/Day Moderate 35 Minutes 66134 4. Obese (E66.9: Obesity, unspecified) Recommend therapeutic lifestyle modification changes. Ordered: [facility] Hospital Care/Day Moderate 35 Minutes 52708 5. HTN (hypertension) (I10: Essential (primary) hypertension) On amlodipine. 6. BPH with urinary obstruction (N40.1: Benign prostatic hyperplasia with lower urinary tract symptoms) Supportive care. Disposition: Home soon pending infectious disease consult. I discussed the diagnosis and plan of care with the patient at the bedside. Moderate level of MDM based on addressing above issues. This documentation was transcribed using voice recognition software. Several attempts were made to ensure accuracy. However inadvertent computerized wood shingle roofer errors may be present. Elvira Urena. Hospitalist. Orders: ertapenem + Sodium Chloride 0.9% intravenous solution 50 mL, 1,000 mg = 1 EA, Injection, IV Piggyback, Daily, Start date 07/10/23 9:00:00 EDT, 100 mL/hr, Infuse over 30 minute(s) ertapenem + Sodium Chloride 0.9% intravenous solution 50 mL, 1,000 mg = 1 EA, Injection, IV Piggyback, Once, Stop date 07/09/23 13:00:00 EDT, Start date 07/09/23 13:00:00 EDT, 100 mL/hr, Infuse over 30 minute(s) Subjective Seen and examined. Complains of right leg/foot pain only when he walks around. Had a bedside incision and drainage of the blister/bullae of his right leg on 07/09/2023. Objective Vitals & Measurements T: 36.3 ?C(Axillary) TMIN: 36.3 ?C(Axillary) TMAX: 36.8 ?C(Axillary) HR: 79(Monitored) RR: 18 BP: 142/86 SpO2: 95% WT: 108.3 kg Intake & Output No qualifying data available. Physical Exam General: alert, no acute distress, sitting in a chair with legs elevated. Skin: warm, dry Head: no trauma, normocephalic Neck: Trachea midline, no adenopathy, no tenderness Eye: normal conjunctiva, sclera clear ENMT: TM's clear, oral mucosa moist, no pharyngeal erythema or exudate Cardiovascular: regular rate and rhythm, normal peripheral perfusion Respiratory: Lungs CTA, respirations non labored Chest wall: no deformity. Gastrointestinal: soft, non distended, no tenderness, no guarding. Back: No tenderness, Normal ROM, Normal alignment. Extremities: no deformity, no trauma, right leg wound dressing intact. Reducing right leg swelling and erythema. Neurological: oriented x 4, LOC appropriate for age, CN II-XII intact, motor strength equal & normal bilaterally, sensation equal & normal bilaterally, speech normal Psychiatric: cooperative, affect appropriate for age, normal judgement, normal psychiatric thoughts. Lab Results Vanco Tr: 9 mcg/mL Low (07/09/23 12:46:00) Diagnostic Results (07/09/2023 11:48 EDT MRI Tibia/Fibula w/ + w/o Contrast Right) * Final Report * Reason For Exam Cellulitis POWERSCRIBE REPORT IMPRESSION: Diffuse subcutaneous edema of the right lower leg and right foot, with areas of skin thickening, overall suggestive of cellulitis. No evidence for osteomyelitis. No loculated collection. HISTORY: Right lower leg and right foot swelling for one week. History of gout. Cellulitis. Concern for infection, abscess. TECHNIQUE: Routine MRI of the right tibia/fibula, with and without contrast and MRI of the right foot with and without contrast. Given 10 mL of intravenous Vueway. COMPARISON: Radiographs 07/08/2023. Ultrasound 07/03/2023. RESULT: Right tibia/fibula: [1] Problem List/Past Medical History Ongoing Asymptomatic microscopic hematuria BPH with urinary obstruction kidney stones Histori (more content not included)... Normal [facility] Comment on above: Result Comment: Elec tronically Signed By: AYANNA SUH, Elvira\.br\Date and Time Signed: 07/10/23 12:09 EDT BMPon 07-09-2023 Anion gap [Moles/Vol] 8 mmol/L Normal 6-16 [facility] Comment on above: Performed By: #### 2 [id number] #### [facility] [address] [place] [address] Calcium [Mass/Vol] 8.2 mg/dL Low 8.9-11.1 [facility] Comment on above: Performed By: #### 2 [id number] #### [facility] [address] [place] [address] Chloride [Moles/Vol] 108 mmol/L Normal 101-111 [facility] Comment on above: Performed By: #### 2 [id number] #### [facility] [address] [place] [address] CO2 [Moles/Vol] 27 mmol/L Normal 21-31 [facility] Comment on above: Performed By: #### 2 [id number] #### [facility] [address] [place] [address] Creatinine [Mass/Vol] 1.4 mg/dL High 0.5-1.3 [facility] Comment on above: Performed By: #### 2 [id number] #### [facility] [address] [place] [address] Glucose [Mass/Vol] 109 mg/dL Normal 55-199 [facility] Comment on above: Performed By: #### 2 [id number] #### [facility] [address] [place] [address] Potassium [Moles/Vol] 3.8 mmol/L Normal 3.5-5.3 [facility] Comment on above: Performed By: #### 2 [id number] #### [facility] [address] [place] [address] Sodium [Moles/Vol] 139 mmol/L Normal 135-145 [facility] Comment on above: Performed By: #### 2 [id number] #### [facility] [address] [place] [address] Urea nitrogen [Mass/Vol] 16 mg/dL Normal 5-21 [facility] Comment on above: Performed By: #### 2 [id number] #### [facility] [address] [place] [address] Urea nitrogen/Creatinine [Mass ratio] 11 No Units Normal 10-20 [facility] Comment on above: Performed By: #### 2 [id number] #### [facility] [address] [place] [address] CHEMISTRYOrdered By: SYSTEM SYSTEM on 07-09-2023 Anion gap [Moles/Vol] 8 mmol/L Normal 6 - 16 mEq/L R emisol Chem Calcium [Mass/Vol] 8.2 mg/dL Low 8.9 - 11. 1 mg/dL Remisol Chem Chloride [Moles/Vol] 108 mmol/L Normal 101 - 1 11 mmol/L Remisol Chem CO2 [Moles/Vol] 27 mmol/L Normal 21 - 31 mmol/L [facility] Creatinine [Mass/Vol] 1.4 mg/dL High 0.5 - 1.3 mg/dL Remisol Chem eGFR 55 mL/min/1.73 m2 Low >=59mL/min /1 .73 m2 Rem[facility] Glucose [Mass/Vol] 109 mg/dL Normal 55 - 199 mg/dL [facility] Potassium [Moles/Vol] 3.8 mmol/L Normal 3.5 - 5.3 mmol/L [facility] Sodium [Moles/Vol] 139 mmol/L Normal 135 - 145 mmol/L [facility] Urea nitrogen [Mass/Vol] 16 mg/dL Normal 5 - 21 mg/dL [facility] Urea nitrogen/Creatinine [Mass ratio] 11 mg/mg Normal 10 - 20 [facility] Vanco Tr 9 microgram/mL Low 10 - 20 mcg/mL Remisol Chem Interdisciplinary Note - Justin e Manageron 07-09-2023 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 Pt is from home with and is normally independent , declines any concerns or DC needs, Inpatient status reviewed, Medicare rights form signed by and original provided. Pending MRI, Podiatry and Vascular to see. Contact information provided and white board updated. PCP verified with and insurance information reviewed. CRM following for needs. Normal [facility] Comment on above: Result Comment: Elec tronically Signed By: Chasidy ALMAGUER, Alaina\.br\Date and Time Signed: 07/09/23 11:37 EDT MRI Foot w/ + w/o Contrast R ighton 07-09-2023 MRI Foot w/ + w/o Contrast Right Exam Date/Time: 07/09/2023 11:48 EDT Reason for Exam: Cellulitis Report Refer to concurrent right tibia/fibula MRI dictation. Ordering Provider: Jhonatan Mariscal FINAL REPORT Dictated: 07/09/2023 12:22 pm Serg Beach MD Signed (Electronic Signature): 07/09/2023 12:22 pm Signed by: Serg Beach MD Transcribed by: LALY Technologist: BENITA Technical Comments Vueway Contrast amount in ml's: 10 Normal [facility] MRI Tibia/Fibula w/ + w/o Co ntrast Righton 07-09-2023 MRI Tibia/Fibula w/ + w/o Contrast Right Exam Date/Time: 07/09/2023 11:48 EDT Reason for Exam: Cellulitis Report IMPRESSION: Diffuse subcutaneous edema of the right lower leg and right foot, with areas of skin thickening, overall suggestive of cellulitis. No evidence for osteomyelitis. No loculated collection. HISTORY: Right lower leg and right foot swelling for one week. History of gout. Cellulitis. Concern for infection, abscess. TECHNIQUE: Routine MRI of the right tibia/fibula, with and without contrast and MRI of the right foot with and without contrast. Given 10 mL of intravenous Vueway. COMPARISON: Radiographs 07/08/2023. Ultrasound 07/03/2023. RESULT: Right tibia/fibula: Bone Marrow: No evidence for fracture, osteomyelitis, or marrow replacing process. Joint: Large innnf-ri-ucxv imaging of the knee with degenerative changes with subchondral cystic change, probable tearing of the medial lateral meniscus, probable tearing of ACL, but overall not well evaluated on the large stvon-fq-eonw. Muscle: Mild diffuse fatty infiltration of the musculature. Otherwise grossly unremarkable. Tendon: Visualized tendons appear intact. Subcutaneous Tissue: Diffuse subcutaneous edema with areas of skin thickening. No distinct loculated collection. Varicose vessels. Other: No suspicious enhancement after contrast. Right foot: No evidence for acute fracture, osteomyelitis, or marrow replacing process. Diffuse subcutaneous edema with areas of skin thickening. No distinct loculated collection. Degenerative changes, especially involving the first MTP joint with subchondral cystic change and also the first tarsometatarsal joint. Bipartite tibial hallux sesamoid. Visualized tendons grossly intact within limits of large gbgsu-ko-rgpd. Small amount of increased fluid at the knot of Jose, possible tenosynovitis or physiologic fluid. Mild distal Achilles tendinosis, with associated enthesophyte at insertion, without tear. Mild plantar fasciitis with associated enthesophyte at Report insertion, without tear. Mild diffuse muscle atrophy. No suspicious enhancement after contrast. Ordering Provider: Jhonatan Mariscal FINAL REPORT Dictated: 07/09/2023 12:22 pm Serg Beach MD. Signed (Electronic Signature): 07/09/2023 12:22 pm Signed by: Serg Beach MD Transcribed by: LALY Technologist: BENITA Technical Comments Vueway Contrast amount in ml's: 10 Normal [facility] Message from Medicareon 06-20 Message from Medicare [id number]. [id number]#1.00T IFF Normal [facility] Message from Medicare [id number]. [id number]#[id number] IFF Normal [facility] Monitor Recordon 07-09-2023 Monitor Record [id number]#[id number] TIFF Normal [facility] Monitor Record [id number]#1.00 TIFF Normal [facility] Monitor Record [id number]#1.00 TIFF Normal [facility] Monitor Record [id number]#1.00 TIFF Normal [facility] No Panel InformationOrdered By: Maty Felix on 07-09-2023 GS No organisms seen. [facility] Wound Culture Scant growth of Staphylococcus species coagulase negative [facility] Progress Note - Pharmacyon 0 07-09-2023 Progress Note - Pharmacy Vancomycin Pharmacy to Dose Consult Note Indication: Skin and Skin Structure Infection Goal Range: AUC/EILEEN: 400 - 600 RECOMMENDATIONS/PLAN: Pharmacy consulted for vancomycin dosing for JEAN MARIE MAST SR, a 68 Years old, Male who is being treated with vancomycin for cellulitis. 1. VANCO STATUS: Vancomycin therapy is still active, today is day 4 of treatment. Patient is receiving Vancomycin 1500mg IV q24h. 2. VANCO LEVEL: The most recent vancomycin levels were: Peak 27 mcg/mL drawn at 1711 on 07/07 and Trough 9 mcg/mL drawn at 1246 on 07/08. Based on these levels the AUC is 417. These levels were drawn on day 4 of therapy. 3. DOSING RECS: The vancomycin AUC is therapeutic, no dosing adjustments will be made at this time. 4. NEXT LEVEL: The next level is scheduled for 1300 on 07/11. 5. MRSA NASAL SWAB? A MRSA Nasal Swab is not appropriate at this time. We will follow patient renal function, vancomycin levels and doses with you during the course of therapy. Additional recommendations will appear in follow up notes. If you have any questions, please contact the pharmacy at extension [phone]. Age: 68 Years Allergies: aspirin Weight: Last Documented Weight and Type of Scale Used Last Documented Weight Weight Measured: 108.6 kg (07/08/23 06:00:00) Type of Scale Used Weight Measured Type of Scale: Bed Scale (digital) (07/06/23 12:08:00) Height: Last Documented Height/Length Last Documented Height/Length Height/Length Measured: 185 cm (07/06/23 16:26:00) CrCl: 66.4mL/min SCr: 1.4 mg/dL Labs: Glucose Lvl: 109 mg/dL (07/09/23 05:12:00) BUN: 16 mg/dL (07/09/23 05:12:00) Creatinine: 1.4 mg/dL High (07/09/23 05:12:00) eGFR: 55 mL/min/1.73 m2 Low (07/09/23 05:12:00) BUN/Creat Ratio: 11 (07/09/23 05:12:00) Sodium Lvl: 139 mmol/L (07/09/23 05:12:00) Potassium Lvl: 3.8 mmol/L (07/09/23 05:12:00) Chloride: 108 mmol/L (07/09/23 05:12:00) CO2: 27 mmol/L (07/09/23 05:12:00) AGAP: 8 mEq/L (07/09/23 05:12:00) Calcium Lvl: 8.2 mg/dL Low (07/09/23 05:12:00) Vanco Tr: 9 mcg/mL Low (07/09/23 12:46:00) Vanco Pk: 27 mcg/mL (07/08/23 17:11:00) Normal [facility] Progress Note-Physicianon Progress Note-Physician Assessment/Plan 68-year-old male with history of hypertension, gout, kidney stones, GERD presented with complaints of right leg swelling, redness, pain, that failed outpatient treatment with oral antibiotics developed a fever and nausea and was admitted with acute cellulitis of the right leg secondary to infected right ankle wound, acute kidney injury, 1. Cellulitis of right leg (L03.115: Cellulitis of right lower limb) Acute cellulitis of the right leg involving ankle and foot. Present on admission. Podiatry consult reviewed by me. I appreciate and agreed recommendations. Patient will undergo MRI of the lower extremity to evaluate for deep tissue infection and abscess formation. Meanwhile continue on IV vancomycin and added IV Invanz for broader coverage pending MRI. Vascular surgery consult pending. Ordered: ertapenem + Sodium Chloride 0.9% intravenous solution 50 mL, 500 mg = 0.5 EA, IV Piggyback, Daily, Routine, Start date 07/10/23 9:00:00 EDT, 100 mL/hr, Infuse over 30 minute(s), 07/09/23 12:12:00 EDT [facility] Care/Day Moderate 35 Minutes 78033 2. Wound of right ankle (S91.001A: Unspecified open wound, right ankle, initial encounter) Present during this admission. Wound culture. MRI of the foot pending. Ordered: ertapenem + Sodium Chloride 0.9% intravenous solution 50 mL, 500 mg = 0.5 EA, IV Piggyback, Daily, Routine, Start date 07/10/23 9:00:00 EDT, 100 mL/hr, Infuse over 30 minute(s), 07/09/23 12:12:00 EDT [facility] Hospital Care/Day Moderate 35 Minutes [id number] Wound Culture 3. Acute kidney injury (N17.9: Acute kidney failure, unspecified) Acute kidney injury?secondary to ATN from above infection, diuretic and lisinopril. Improved. Avoid nephrotoxic drugs. Lisinopril and hydrochlorothiazide suspended. Treated with IV fluid. Ordered: [facility] Care/Day Moderate 35 Minutes 44522 4. Obese (E66.9: Obesity, unspecified) Recommend therapeutic lifestyle modification changes. Ordered: [facility] Care/Day Moderate 35 Minutes 48810 5. HTN (hypertension) (I10: Essential (primary) hypertension) Blood pressure controlled. On amlodipine. 6. BPH with urinary obstruction (N40.1: Benign prostatic hyperplasia with lower urinary tract symptoms) Supportive care. Disposition: Pending MRI of the right lower extremity and vascular surgery consult. I discussed the diagnosis and plan of care with the patient at the bedside. Moderate level of MDM based on addressing above issues. This documentation was transcribed using voice recognition software. Several attempts were made to ensure accuracy. However inadvertent computerized wood shingle roofer errors may be present. Elvira Urena. Hospitalist. Other obstructive and reflux uropathy (N13.8: Other obstructive and reflux uropathy) Orders: ertapenem + Sodium Chloride 0.9% intravenous solution 50 mL, 500 mg = 0.5 EA, IV Piggyback, Once, Stop date 07/09/23 13:00:00 EDT, Routine, Start date 07/09/23 13:00:00 EDT, 100 mL/hr, Infuse over 30 minute(s), 07/09/23 12:13:00 EDT Subjective Seen and examined. Still complaining of right leg/right ankle pain whenever he stands. He denies any fever. Redness and swelling of the right leg is still there. He is scheduled for MRI today. Right ankle wound opened up last night and drained. Objective Vitals & Measurements T: 36.6 ?C(Axillary) TMIN: 36.5 ?C(Axillary) TMAX: 36.9 ?C(Oral) HR: 70(Monitored) RR: 18 BP: 138/86 SpO2: 95% Intake & Output This visit (24 hour periods starting at 07:00 EDT) 07/09/23 * 07/08/23 07/07/23 Total Summary Intake mL -- -- 560 Output mL -- -- -- Fluid Balance -- -- 560 Intake (1) Oral Intake mL -- -- 560 Total -- -- 560 Output (0) Counts (1) Urine Count -- -- 1 * This column has not completed the indicated time period. Physical Exam General: alert, no acute distress Skin: warm, dry Head: no trauma, normocephalic Neck: Trachea midline, no adenopathy, no tenderness Eye: normal conjunctiva, sclera clear ENMT: TM's clear, oral mucosa moist, no pharyngeal erythema or exudate Cardiovascular: regular rate and rhythm, normal peripheral perfusion Respiratory: Lungs CTA, respirations non labored Chest wall: no deformity. Gastrointestinal: soft, non distended, no tenderness, no guarding. Back: No tenderness, Normal ROM, Normal alignment. Extremities: no deformity, no trauma, right leg edema. Redness, ecchymosis, right medial ankle 1 cm x 1 cm nondraining punctum. Right foot redness. Mildly warm to touch. Right foot swelling. Neurological: oriented x 4, LOC appropriate for age, CN II-XII intact, motor strength equal & normal bilaterally, sensation equal & normal bilaterally, speech normal Psychiatric: cooperative, affect appropriate for age, normal judgement, normal psychiatric thoughts. Lab Results Glucose Lvl: 109 mg/dL (07/09/23 05:12:00) BUN: 16 mg/dL (07/09/23 05:12:00) Creatinine: 1.4 mg/dL High (05 (more content not included)... Normal [facility] Comment on above: Result Comment: Elec tronically Signed By: AYANNA SUH, Lenaanefo\.br\Date and Time Signed: 07/09/23 12:19 EDT Progress Note-Physician Patient: JEAN MARIE MAST SR Age: 68 years Sex: Male : 1955 Associated Diagnoses: None Author: Jhonatan Mariscal DPM Subjective Patient seen at bedside today MRI negative for abscess cellulitis appears to be improving somewhat. Does have a small bulla anterior aspect of the right leg he has been elevating the leg as directed patient is still taking IV vancomycin. Blood cultures unremarkable. Denies fever chills nausea and vomiting. Health Status Allergies: Allergic Reactions (Selected) Severity Not Documented Aspirin- Unknown., Allergies (1) Active Severity Reaction aspirin Unknown Current medications: (Selected) Inpatient Medications Ordered Al hydroxide/Mg hydroxide/simethicone 200 mg-200 mg-20 mg/5 mL oral suspension: 30 mL, Susp-Oral, Oral, q6hr PRN Indigestion, Routine, Start date 07/06/23 16:49:00 EDT Milk of Magnesia 8% Susp-Oral: 30 mL, Susp-Oral, Oral, q6hr PRN Constipation, Routine, Start date 07/06/23 16:49:00 EDT Pantoprazole [address] Tab: 40 mg = 1 tab(s), Tab-DR, Oral, Daily, Routine, Start date 07/07/23 9:00:00 EDT, 07/06/23 16:42:00 EDT Zofran 4 mg/2 mL Injection: 4 mg = 2 mL, Injection, IV Push, q6hr PRN Nausea, Routine, Start date 07/06/23 16:49:00 EDT, 07/06/23 16:49:00 EDT acetaminophen 325 mg Tab: 650 mg = 2 tab(s), Tab, Oral, q6hr PRN Pain, Routine, Start date 07/06/23 16:49:00 EDT, 07/06/23 16:49:00 EDT allopurinol 100 mg Tab: 200 mg = 2 tab(s), Tab, Oral, Daily, Routine, Start date 07/07/23 9:00:00 EDT, 07/06/23 16:42:00 EDT amLODIPine 5 mg Tab: 5 mg = 1 tab(s), Tab, Oral, Daily, Routine, Start date 07/07/23 9:00:00 EDT, 07/06/23 16:42:00 EDT ertapenem + Sodium Chloride 0.9% intravenous solution 50 mL: 1,000 mg = 1 EA, Injection, IV Piggyback, Daily, Start date 07/10/23 9:00:00 EDT, 100 mL/hr, Infuse over 30 minute(s) heparin 5000 units/mL Inj: 5,000 unit(s) = 1 mL, Injection, SubCutaneous, q8hrFT for 30 day(s), Stop date 08/05/23 23:59:00 EDT, Routine, Start date 07/07/23 0:00:00 EDT hydrALAZINE 20 mg/mL Inj: 10 mg = 0.5 mL, Injection, IV Push, q6hr PRN Other (see comment), Routine, Start date 07/06/23 16:49:00 EDT, 07/06/23 16:49:00 EDT lactobacillus acidophilus and bulgaricus oral tablet: 1 tab(s), Tab, Oral, Daily, Routine, Start date 07/07/23 9:00:00 EDT vancomycin + Generic Diluent 300 mL: 1,500 mg = 300 mL, Soln-IV, IV Piggyback, q24hr, Start date 07/07/23 14:00:00 EDT, 200 mL/hr, Infuse over 90 minute(s) vancomycin IV PHARMACY TO DOSE: PHARMACY TO DOSE, Injection, IV, As Directed, Routine, Start date 07/06/23 16:44:00 EDT Suspended hydrochlorothiazide 25 mg Tab: 25 mg = 1 tab(s), Tab, Oral, Daily, Routine, Start date 07/07/23 9:00:00 EDT, 07/06/23 16:42:00 EDT lisinopril 20 mg Tab: 40 mg = 2 tab(s), Tab, Oral, Daily, Routine, Start date 07/07/23 9:00:00 EDT, 07/06/23 16:42:00 EDT Documented Medications Documented Acidophilus Extra Strength oral capsule: 1 cap(s), Oral, Daily, Refill(s) 0 allopurinol 100 mg Tab: 200 mg = 2 tab(s), Oral, Daily, Refills(s) 0 amLODIPine 5 mg Tab: 5 mg = 1 tab(s), Oral, Daily, # 30 tab(s), Refills(s) 0 hydrochlorothiazide 25 mg Tab: 25 mg = 1 tab(s), Oral, Daily, # 30 tab(s), Refills(s) 0 lisinopril 40 mg Tab: 40 mg = 1 tab(s), Oral, Daily, # 90 tab(s), Refills(s) 0 meloxicam 15 mg Tab: 15 mg = 1 tab(s), Oral, Daily, # 30 tab(s), Refills(s) 0 omeprazole 20 mg Cap-DR: 20 mg = 1 cap(s), Oral, Daily, Refills(s) 0 Problem list: All Problems Asymptomatic microscopic hematuria / SNOMED CT 6258921867 / Confirmed BPH with urinary obstruction / SNOMED CT 6404047446 / Confirmed kidney stones / SNOMED CT 069651041 / Confirmed, Active Problems (3) Asymptomatic microscopic hematuria BPH with urinary obstruction kidney stones Objective Measurements from flowsheet : Measurements 07/08/2023 6:00 EDT Weight Measured 108.6 kg Vital Signs (last 24 hrs) Last Charted Temp Axillary H 36.8 DegC (JULY 08 15:10) Heart Rate Monitored 74 bpm (JULY 08 15:12) SBP 137 mmHg (JULY 08 15:11) DBP H 92 mmHg (JULY 08 15:11) Patient appears to be improving somewhat with respect to the cellulitis. Does have a large seroma anterior aspect of the right leg upon incision and drainage mild serous drainage was noted from the area no arnold purulence was noted. Results Review * Final Report * Reason For Exam Cellulitis POWERSCRIBE REPORT IMPRESSION: Diffuse subcutaneous edema of the right lower leg and right foot, with areas of skin thickening, overall suggestive of cellulitis. No evidence for osteomyelitis. No loculated collection. HISTORY: Right lower leg and right foot swelling for one week. History of gout. Cellulitis. Concern for infection, abscess. TECHNIQUE: Routine MRI of the right tibia/fibula, with and without contrast and MRI of the right foot with and without contrast. Given 10 mL of intravenous Vueway. COMPARISON: Radiographs 07/08/2023. Ultrasound 07/03/2023. RESULT: Right tibia (more content not included)... Normal [facility] Comment on above: Result Comment: Elec tronically Signed By: Jhonatan Mariscal DPM.joelle\Date and Time Signed: 07/09/23 17:30 EDT RAD - MRI Screening Formon 0 07-09-2023 RAD - MRI Screening Form [id number] 0TIFF Normal [facility] Vanco Troughon 07-09-2023 Vanco Tr 9 microgram/mL Low 10-20 [facility] Comment on above: Performed By: #### 2 [id number] ####[facility] [id number] [place] [address] eGFRon 07-09-2023 eGFR 55 mL/min/1.73 m2 Low >=59 [facility] Comment on above: Order Comment: Order added by Discern Expert. Performed By: #### 1 [id number] #### [facility] [address] [place] [address] BMPon 07-08-2023 Anion gap [Moles/Vol] 10 mmol/L Normal 6-16 [facility] Comment on above: Performed By: #### 2 [id number] #### [facility] [address] [place] [address] Calcium [Mass/Vol] 8.2 mg/dL Low 8.9-11.1 [facility] Comment on above: Performed By: #### 2 [id number] #### [facility] [address] [place] [address] Chloride [Moles/Vol] 107 mmol/L Normal 101-111 [facility] Comment on above: Performed By: #### 2 [id number] #### [facility] [address] [place] [address] CO2 [Moles/Vol] 25 mmol/L Normal 21-31 [facility] Comment on above: Performed By: #### 2 [id number] #### [facility] [address] [place] [address] Creatinine [Mass/Vol] 1.4 mg/dL High 0.5-1.3 [facility] Comment on above: Performed By: #### 2 [id number] #### [facility] [address] [place] [address] Glucose [Mass/Vol] 110 mg/dL Normal 55-199 [facility] Comment on above: Performed By: #### 2 [id number] #### [facility] [address] [place] [address] Potassium [Moles/Vol] 3.9 mmol/L Normal 3.5-5.3 [facility] Comment on above: Performed By: #### 2 [id number] #### [facility] [address] [place] [address] Sodium [Moles/Vol] 138 mmol/L Normal 135-145 [facility] Comment on above: Performed By: #### 2 [id number] #### [facility] [address] [place] [address] Urea nitrogen [Mass/Vol] 21 mg/dL Normal 5-21 [facility] Comment on above: Performed By: #### 2 [id number] #### [facility] [address] [place] [address] Urea nitrogen/Creatinine [Mass ratio] 15 No Units Normal 10-20 [facility] Comment on above: Performed By: #### 2 [id number] #### [facility] [address] [place] [address] CHEMISTRYOrdered By: SYSTEM SYSTEM on 07-08-2023 Anion gap [Moles/Vol] 10 mmol/L Normal 6 - 16 mEq/L R emisol Chem Calcium [Mass/Vol] 8.2 mg/dL Low 8.9 - 11. 1 mg/dL [facility] Chloride [Moles/Vol] 107 mmol/L Normal 101 - 1 11 mmol/L [facility] CO2 [Moles/Vol] 25 mmol/L Normal 21 - 31 mmol/L [facility] Creatinine [Mass/Vol] 1.4 mg/dL High 0.5 - 1.3 mg/dL [facility] eGFR 55 mL/min/1.73 m2 Low >=59mL/min /1 .73 m2 [facility] Glucose [Mass/Vol] 110 mg/dL Normal 55 - 199 mg/dL [facility] Potassium [Moles/Vol] 3.9 mmol/L Normal 3.5 - 5.3 mmol/L [facility] Sodium [Moles/Vol] 138 mmol/L Normal 135 - 145 mmol/L [facility] Urea nitrogen [Mass/Vol] 21 mg/dL Normal 5 - 21 mg/dL [facility] Urea nitrogen/Creatinine [Mass ratio] 15 mg/mg Normal 10 - 20 [facility] Vanco Pk 27 microgram/mL Normal 20 - 40 mcg/mL [facility] Consultation Noteon 07-08-19 Consultation Note Patient: JEAN MARIE MAST SR Age: 68 years Sex: Male : 1955 Associated Diagnoses: None Author: Jhonatan Mariscal DPM Subjective Patient was admitted directly from the emergency department with a 1 week history of cellulitis and swelling to the right lower extremity. He had a duplex ultrasound on July 02 which is negative for DVT of the right. He was treated as an outpatient with oral antibiotics as well as immobilizer to limit Unna boot. He developed fever chills and nausea and was instructed to go to the emergency department for admission. Currently is on IV antibiotics. Blood cultures are pending. Laboratory values were unremarkable. He does have an Unna boot in place. Health Status Allergies: Allergic Reactions (Selected) Severity Not Documented Aspirin- Unknown., Allergies (1) Active Severity Reaction aspirin Unknown Current medications: (Selected) Inpatient Medications Ordered Al hydroxide/Mg hydroxide/simethicone 200 mg-200 mg-20 mg/5 mL oral suspension: 30 mL, Susp-Oral, Oral, q6hr PRN Indigestion, Routine, Start date 07/06/23 16:49:00 EDT Milk of Magnesia 8% Susp-Oral: 30 mL, Susp-Oral, Oral, q6hr PRN Constipation, Routine, Start date 07/06/23 16:49:00 EDT Pantoprazole [address] Tab: 40 mg = 1 tab(s), Tab-DR, Oral, Daily, Routine, Start date 07/07/23 9:00:00 EDT, 07/06/23 16:42:00 EDT Zofran 4 mg/2 mL Injection: 4 mg = 2 mL, Injection, IV Push, q6hr PRN Nausea, Routine, Start date 07/06/23 16:49:00 EDT, 07/06/23 16:49:00 EDT acetaminophen 325 mg Tab: 650 mg = 2 tab(s), Tab, Oral, q6hr PRN Pain, Routine, Start date 07/06/23 16:49:00 EDT, 07/06/23 16:49:00 EDT allopurinol 100 mg Tab: 200 mg = 2 tab(s), Tab, Oral, Daily, Routine, Start date 07/07/23 9:00:00 EDT, 07/06/23 16:42:00 EDT amLODIPine 5 mg Tab: 5 mg = 1 tab(s), Tab, Oral, Daily, Routine, Start date 07/07/23 9:00:00 EDT, 07/06/23 16:42:00 EDT heparin 5000 units/mL Inj: 5,000 unit(s) = 1 mL, Injection, SubCutaneous, q8hrFT for 30 day(s), Stop date 08/05/23 23:59:00 EDT, Routine, Start date 07/07/23 0:00:00 EDT hydrALAZINE 20 mg/mL Inj: 10 mg = 0.5 mL, Injection, IV Push, q6hr PRN Other (see comment), Routine, Start date 07/06/23 16:49:00 EDT, 07/06/23 16:49:00 EDT lactobacillus acidophilus and bulgaricus oral tablet: 1 tab(s), Tab, Oral, Daily, Routine, Start date 07/07/23 9:00:00 EDT vancomycin + Generic Diluent 300 mL: 1,500 mg = 300 mL, Soln-IV, IV Piggyback, q24hr, Start date 07/07/23 14:00:00 EDT, 200 mL/hr, Infuse over 90 minute(s) vancomycin IV PHARMACY TO DOSE: PHARMACY TO DOSE, Injection, IV, As Directed, Routine, Start date 07/06/23 16:44:00 EDT Suspended hydrochlorothiazide 25 mg Tab: 25 mg = 1 tab(s), Tab, Oral, Daily, Routine, Start date 07/07/23 9:00:00 EDT, 07/06/23 16:42:00 EDT lisinopril 20 mg Tab: 40 mg = 2 tab(s), Tab, Oral, Daily, Routine, Start date 07/07/23 9:00:00 EDT, 07/06/23 16:42:00 EDT Documented Medications Documented Acidophilus Extra Strength oral capsule: 1 cap(s), Oral, Daily, Refill(s) 0 allopurinol 100 mg Tab: 200 mg = 2 tab(s), Oral, Daily, Refills(s) 0 amLODIPine 5 mg Tab: 5 mg = 1 tab(s), Oral, Daily, # 30 tab(s), Refills(s) 0 hydrochlorothiazide 25 mg Tab: 25 mg = 1 tab(s), Oral, Daily, # 30 tab(s), Refills(s) 0 lisinopril 40 mg Tab: 40 mg = 1 tab(s), Oral, Daily, # 90 tab(s), Refills(s) 0 meloxicam 15 mg Tab: 15 mg = 1 tab(s), Oral, Daily, # 30 tab(s), Refills(s) 0 omeprazole 20 mg Cap-DR: 20 mg = 1 cap(s), Oral, Daily, Refills(s) 0 Problem list: All Problems Asymptomatic microscopic hematuria / SNOMED CT 1739551399 / Confirmed BPH with urinary obstruction / SNOMED CT 4417477183 / Confirmed kidney stones / SNOMED CT 319030825 / Confirmed, Active Problems (3) Asymptomatic microscopic hematuria BPH with urinary obstruction kidney stones Objective Measurements from flowsheet : Measurements 07/08/2023 6:00 EDT Weight Measured 108.6 kg Vital Signs (last 24 hrs) Last Charted Temp Axillary 36.7 DegC (JULY 07:) Heart Rate Monitored 81 bpm (JULY 07:) SBP H 146 mmHg (JULY 07:) DBP 79 mmHg (JULY 07:) Weight 108.6 kg (JULY 07:00) General: Alert and oriented. Cardiovascular: Good pulses equal in all extremities. Lymphatics: Patient still has significant swelling to the right lower extremity erythema appears to be improving somewhat with his IV antibiotics. Small bulla formation noted at the medial ankle and proximal to the Unna boot. Musculoskeletal No calf tenderness noted no flocculence noted with palpation of the soft tissue. No pain over the medial or lateral malleoli region no pain with range of motion of the ankle mild tenderness noted at the proximal calf region. Neurologic: Alert. Psychiatric: Cooperative. Results Review Blood cultures are pending Impression and Plan Patient is to continue IV antibiotics I did order tib-fib radiographs as well as foot radiographs I also ordered an MRI of his tib-fib (more content not included)... Normal [facility] Comment on above: Result Comment: Elec tronically Signed By: Jhonatan Mariscal DPM\.joelle\Date and Time Signed: 07/08/23 09:52 EDT Monitor Recordon 07-08-2023 Monitor Record [id number] TIFF Normal [facility] Progress Note-Physicianon Progress Note-Physician Subjective Day 3 IV vancomycin Patient seen earlier this morning. Still pain with discomfort and swelling but better compared to when he was admitted. No other complaints. Review of Systems Constitutional: no fever, no chills, no sweats, no weakness Respiratory: no shortness of breath, no cough, no orthopnea, no wheezing Cardiovascular: no chest pain, no palpitations, no edema Additional ROS info: Except as noted in the above Review of Systems and in the History of Present Illness all other systems have been reviewed and are negative or noncontributory. Objective Vitals & Measurements T: 36.8 ?C(Axillary) TMIN: 36.2 ?C(Oral) TMAX: 36.8 ?C(Axillary) HR: 81(Monitored) RR: 16 BP: 144/72 SpO2: 95% WT: 108.6 kg Intake & Output This visit (24 hour periods starting at 07:00 EDT) 07/08/23 * 07/07/23 07/06/23 Total Summary Intake mL -- 560 1,510.25 Output mL -- -- -- Fluid Balance -- 560 1,510.25 Intake (3) Generic Diluent, vancomycin mL -- -- 300 Oral Intake mL -- 560 240 Sodium Chloride 0.9% intravenous solution 1,000 mL mL -- -- 970.25 Total -- 560 1,510.25 Output (0) Counts (1) Urine Count -- 1 2 * This column has not completed the indicated time period. Physical Exam Constitutional: Awake and alert; oriented x 3 with no apparent distress or respiratory distress Head/neck: Neck supple with no palpable lymphadenopathy, bruits or masses; trachea midline Chest/lungs: Clear to auscultation bilaterally no wheezes or rhonchi noted bilaterally Cardiovascular: Regular rate and rhythm; normal S1-S2 with no murmur; no pitting edema and 2+ pulses bilaterally Gastrointestinal: Soft, nontender, nondistended, positive bowel sounds Neurological: Nonfocal; cranial nerves II through XII appear intact Psychological: Pleasant affect Dermatological: Erythema to right lower extremity from the knee down with mild lymphangitic spread noted left medial thigh improving; no blistering and no lesions noted Lab Results Glucose Lvl: 110 mg/dL (07/08/23 06:11:00) BUN: 21 mg/dL (07/08/23 06:11:00) Creatinine: 1.4 mg/dL High (07/08/23 06:11:00) eGFR: 55 mL/min/1.73 m2 Low (07/08/23 06:11:00) BUN/Creat Ratio: 15 (07/08/23 06:11:00) Sodium Lvl: 138 mmol/L (07/08/23 06:11:00) Potassium Lvl: 3.9 mmol/L (07/08/23 06:11:00) Chloride: 107 mmol/L (07/08/23 06:11:00) CO2: 25 mmol/L (07/08/23 06:11:00) AGAP: 10 mEq/L (07/08/23 06:11:00) Calcium Lvl: 8.2 mg/dL Low (07/08/23 06:11:00) Assessment/Plan 68-year-old male admitted for cellulitis of his right leg having failed outpatient antibiotics. He has acute kidney injury as well -he does take hydrochlorothiazide and lisinopril plus Mobic. Comorbidities include hypertension, gout, BPH, nephrolithiasis and GERD 1. Cellulitis of right leg (L03.115: Cellulitis of right lower limb) Continue IV vancomycin Podiatry ordered tib-fib x-ray as well as an MRI of the tib-fib region and foot to rule out deep space infection Vascular surgery consulted as well Pain control as needed Last for a.m. Ordered: [facility] Hospital Care/Day Moderate 35 Minutes 58790 2. Acute kidney injury (N17.9: Acute kidney failure, unspecified) Serum creatinine down to 1.4 FENa from yesterday was 1.8; may be intrinsic and he was taking HCTZ, lisinopril and Mobic in the outpatient setting which all have been held Ordered: [facility] Hospital Care/Day Moderate 35 Minutes 52081 Orders: Basic Metabolic Panel eGFR Extra Lav Tube Shower PLAN: 1. Will continue IV vancomycin, blood cultures no growth to date 2. Tib-fib x-rays and MRI ordered per podiatry 3. Vascular surgery consulted 4. Pain control as needed 5. Continue allopurinol, amlodipine but hold lisinopril and HCTZ 6. Continue to trend labs 7. DVT prophylaxis with SCDs and subcu enoxaparin Problem List/Past Medical History Ongoing Asymptomatic microscopic hematuria BPH with urinary obstruction kidney stones Historical Gout HTN - Hypertension Medications Inpatient acetaminophen 325 mg Tab, 650 mg= 2 tab(s), Oral, q6hr, PRN Al hydroxide/Mg hydroxide/simethicone 200 mg-200 mg-20 mg/5 mL oral suspension, 30 mL, Oral, q6hr, PRN allopurinol 100 mg Tab, 200 mg= 2 tab(s), Oral, Daily amLODIPine 5 mg Tab, 5 mg= 1 tab(s), Oral, Daily heparin 5000 units/mL Inj, 5000 unit(s)= 1 mL, SubCutaneous, q8hrFT hydrALAZINE 20 mg/mL Inj, 10 mg= 0.5 mL, IV Push, q6hr, PRN lactobacillus acidophilus and bulgaricus oral tablet, 1 tab(s), Oral, Daily Milk of Magnesia 8% Susp-Oral, 30 mL, Oral, q6hr, PRN Pantoprazole [address] Tab, 40 mg= 1 tab(s), Oral, Daily vancomycin + Generic Diluent 300 mL vancomycin IV PHARMACY TO DOSE, PHARMACY TO DOSE, IV, As Directed Zofran 4 mg/2 mL Injection, 4 mg= 2 mL, IV Push, q6hr, PRN Home Acidophilus Extra Strength oral capsule, 1 cap(s), Oral, Daily allopurinol 100 mg Tab, 200 mg= 2 tab(s), Oral, Daily amLODIPine 5 mg Tab, 5 mg= 1 (more content not included)... Normal [facility] Comment on above: Result Comment: Elec tronically Signed By: Dwight Eddy DObr\Date and Time Signed: 07/08/23 12:44 EDT Vanco Peakon 07-08-2023 Vanco Pk 27 microgram/mL Normal 20-40 [facility] Comment on above: Order Comment: pleas e draw one hour after vancomycin infusion is complete Performed By: #### 2 [id number] #### [facility] [address] [place] [address] XR Foot 3+ Views Righton XR Foot 3+ Views Right Exam Date/Time: 07/08/2023 10:16 EDT Reason for Exam: Other (please specify) Report IMPRESSION: NO FRACTURE. DEGENERATIVE CHANGE DISCUSSED. CELLULITIS RIGHT FOOT. CLINICAL HISTORY: Cellulitis COMPARISON: None available. FINDINGS: X-rays of the right foot. Mild narrowing of right first metatarsophalangeal joint with mild flattening of right metatarsal head. Mild diffuse narrowing of laryngeal joints with mild hammertoe deformity. Mild osteophyte formation anterior and posterior surfaces calcaneus. No fracture, dislocation, bone lesion, radiopaque foreign body. Soft tissue swelling, noncalcified aspect, right foot Ordering Provider: Jhonatan Mariscal FINAL REPORT Dictated: 07/08/2023 10:20 am Ferdinand Catalan MD Signed (Electronic Signature): 07/08/2023 10:20 am Signed by: Ferdinand Catalan MD Transcribed by: LALY Technologist: ALENA, Technical Comments Radiation Dose: Ka,r in mGy = . DAP = . Normal [facility] XR Tib/Fib Right 2 Viewon XR Tib/Fib Right 2 View Exam Date/Time: 07/08/2023 10:16 EDT Reason for Exam: Other (please specify) Report IMPRESSION: NO FRACTURE. DIFFUSE SOFT TISSUE SWELLING RIGHT TIBIA AND FIBULA. CLINICAL INFORMATION: Cellulitis. COMPARISON: None. FINDINGS: The right tibia and fibula appear normal without evidence of fracture or dislocation. Diffuse soft tissue swelling of right lower extremity identified. Ordering Provider: Jhonatan Mariscal FINAL REPORT Dictated: 07/08/2023 10:21 am Ferdinand Catalan MD Signed (Electronic Signature): 07/08/2023 10:21 am Signed by: Ferdinand Catalan MD Transcribed by: LALY Technologist: ALENA, Technical Comments Radiation Dose: Ka,r in mGy = . DAP = . Normal [facility] eGFRon 07-08-2023 eGFR 55 mL/min/1.73 m2 Low >=59 [facility] Comment on above: Order Comment: Order added by Discern Expert. Performed By: #### 1 [id number] #### [facility] [address] [place] [address] BMPon 07-07-2023 Anion gap [Moles/Vol] 10 mmol/L Normal 6-16 [facility] Comment on above: Performed By: #### 2 [id number] #### [facility] [address] [place] [address] Calcium [Mass/Vol] 8.2 mg/dL Low 8.9-11.1 [facility] Comment on above: Performed By: #### 2 [id number] #### [facility] [address] [place] [address] Chloride [Moles/Vol] 106 mmol/L Normal 101-111 [facility] Comment on above: Performed By: #### 2 [id number] #### [facility] [address] [place] [address] CO2 [Moles/Vol] 25 mmol/L Normal 21-31 [facility] Comment on above: Performed By: #### 2 [id number] #### [facility] [address] [place] [address] Creatinine [Mass/Vol] 1.6 mg/dL High 0.5-1.3 [facility] Comment on above: Performed By: #### 2 746124 #### [facility] [address] [place] [address] Glucose [Mass/Vol] 103 mg/dL Normal 55-199 [facility] Comment on above: Performed By: #### 2 [id number] #### [facility] [address] [place] [address] Potassium [Moles/Vol] 3.7 mmol/L Normal 3.5-5.3 [facility] Comment on above: Performed By: #### 2 352057 #### [facility] [address] [place] [address] Sodium [Moles/Vol] 137 mmol/L Normal 135-145 [facility] Comment on above: Performed By: #### 2 198968 #### [facility] [address] [place] [address] Urea nitrogen [Mass/Vol] 27 mg/dL High 5-21 [facility] Comment on above: Performed By: #### 2 987045 #### [facility] [address] [place] [address] Urea nitrogen/Creatinine [Mass ratio] 17 No Units Normal 10-20 [facility] Comment on above: Performed By: #### 2 939684 #### [facility] [address] [place] [address] CBC w/ Auto Diffon 4 Basophils/100 WBC (Bld) 0.5 % Normal 0.0-2.0 [facility] Comment on above: Performed By: #### 2 [id number] #### [facility] [address] [place] [address] Basophils/Leukocytes Auto (Bld) [Pure # fraction] 0.0 E9/L Normal 0.0-0.2 [facility] Comment on above: Performed By: #### 2 835705 #### [facility] [address] [place] [address] Eosinophils (Bld) [#/Vol] 0.2 E9/L Normal 0.0-0.5 [facility] Comment on above: Performed By: #### 2 789248 #### [facility] [address] [place] [address] Eosinophils/100 WBC (Bld) 3.0 % Normal 0.0-8.0 [facility] Comment on above: Performed By: #### 2 928910 #### [facility] [address] [place] [address] Erythrocyte distribution width (RBC) [Ratio] 13.6 % Normal 10.9-14.2 [facility] Comment on above: Performed By: #### 2 687939 #### [facility] [address] [place] [address] Hematocrit (Bld) [Volume fraction] 40.6 % Normal 37.7-49.0 [facility] Comment on above: Performed By: #### 2 406200 #### [facility] [address] [place] [address] Hemoglobin (Bld) [Mass/Vol] 13.8 g/dL Normal 13.5-17.5 [facility] Comment on above: Performed By: #### 2 560253 #### [facility] [address] [place] [address] Lymphocytes (Bld) [#/Vol] 1.7 E9/L Normal 1.0-4.0 [facility] Comment on above: Performed By: #### 2 548313 #### [facility] [address] [place] [address] Lymphocytes/100 WBC (Bld) 20.4 % Normal 14.0-50.0 [facility] Comment on above: Performed By: #### 2 773734 #### [facility] [address] [place] [address] MCH (RBC) [Entitic mass] 32.2 pg Normal 27.0-34.0 [facility] Comment on above: Performed By: #### 2 720196 #### [facility] [address] [place] [address] MCHC (RBC) [Mass/Vol] 34.1 g/dL Normal 31.4-36.0 [facility] Comment on above: Performed By: #### 2 309573 #### [facility] [address] [place] [address] MCV (RBC) [Entitic vol] 94.5 fL Normal 80.0-100.0 [facility] Comment on above: Performed By: #### 2 443835 #### [facility] [address] [place] [address] Monocytes (Bld) [#/Vol] 0.5 E9/L Normal 0.2-1.0 [facility] Comment on above: Performed By: #### 2 136814 #### [facility] [address] [place] [address] Neutrophils (Bld) [#/Vol] 5.7 E9/L Normal 2.0-7.5 [facility] Comment on above: Performed By: #### 2 633724 #### [facility] [address] [place] [address] Neutrophils/100 WBC (Bld) 69.7 % Normal 36.0-75.0 [facility] Comment on above: Performed By: #### 2 579594 #### [facility] [address] [place] [address] Platelet mean volume (Bld) [Entitic vol] 8.6 fL Normal 6.4-10.8 [facility] Comment on above: Performed By: #### 2 993986 #### [facility] [address] [place] [address] Platelets (Bld) [#/Vol] 205.0 E9/L Normal 150.0-500.0 [facility] Comment on above: Performed By: #### 2 693459 #### [facility] [address] [place] [address] RBC (Bld) [#/Vol] 4.3 E12/L Normal 4.3-5.9 [facility] Comment on above: Performed By: #### 2 578107 #### [facility] [address] [place] [address] WBC corrected for nucl RBC Auto (Bld) [#/Vol] 8.1 E9/L Normal 4.0-11.0 [facility] Comment on above: Performed By: #### 2 [id number] #### [facility] [address] [place] [address] CHEMISTRYOrdered By: SYSTEM SYSTEM on 07-07-2023 Anion gap [Moles/Vol] 10 mmol/L Normal 6 - 16 mEq/L R emisol Chem Calcium [Mass/Vol] 8.2 mg/dL Low 8.9 - 11. 1 mg/dL Remisol Chem Chloride [Moles/Vol] 106 mmol/L Normal 101 - 1 11 mmol/L Remisol Chem CO2 [Moles/Vol] 25 mmol/L Normal 21 - 31 mmol/L Remisol Chem Creatinine [Mass/Vol] 1.6 mg/dL High 0.5 - 1.3 mg/dL Remisol Chem eGFR 47 mL/min/1.73 m2 Low >=59mL/min /1 .73 m2 Remisol Chem Glucose [Mass/Vol] 103 mg/dL Normal 55 - 199 mg/dL Remisol Chem Potassium [Moles/Vol] 3.7 mmol/L Normal 3.5 - 5.3 mmol/L Remisol Chem Sodium [Moles/Vol] 137 mmol/L Normal 135 - 145 mmol/L Remisol Chem Urea nitrogen [Mass/Vol] 27 mg/dL High 5 - 21 mg/dL Remisol Chem Urea nitrogen/Creatinine [Mass ratio] 17 mg/mg Normal 10 - 20 Remisol Chem HEMATOLOGYOrdered By: SYSTEM SYSTEM on 07-07-2023 Basophils/100 WBC (Bld) 0.5 % Normal 0.0 - 2.0 % Remisol Heme Basophils/Leukocytes Auto (Bld) [Pure # fraction] 0.0 E9/L Normal 0.0 - 0.2 E9/L Remisol Heme Eosinophils (Bld) [#/Vol] 0.2 E9/L Normal 0.0 - 0.5 E9/L Remisol Heme Eosinophils/100 WBC (Bld) 3.0 % Normal 0.0 - 8.0 % Remisol Heme Erythrocyte distribution width (RBC) [Ratio] 13.6 % Normal 10.9 - 14.2 % Remisol Heme Hematocrit (Bld) [Volume fraction] 40.6 % Normal 37.7 - 49.0 % Remisol Heme Hemoglobin (Bld) [Mass/Vol] 13.8 g/dL Normal 13.5 - 17.5 gm/dL Remisol Heme Lymphocytes (Bld) [#/Vol] 1.7 E9/L Normal 1.0 - 4.0 E9/L Remisol Heme Lymphocytes/100 WBC (Bld) 20.4 % Normal 14.0 - 50.0 % Remisol Heme MCH (RBC) [Entitic mass] 32.2 pg Normal 27.0 - 34.0 pg Remisol Heme MCHC (RBC) [Mass/Vol] 34.1 g/dL Normal 31.4 - 36.0 gm/dL Remisol Heme MCV (RBC) [Entitic vol] 94.5 fL Normal 80.0 - 100.0 fL Remisol Heme Monocytes (Bld) [#/Vol] 0.5 E9/L Normal 0.2 - 1.0 E9/L Remisol Heme Monocytes/100 WBC (Bld) 6.4 % Normal 4.0 - 14.0 % Remisol Heme Neutrophils (Bld) [#/Vol] 5.7 E9/L Normal 2.0 - 7.5 E9/L Remisol Heme Neutrophils/100 WBC (Bld) 69.7 % Normal 36.0 - 75.0 % Remisol Heme Platelet mean volume (Bld) [Entitic vol] 8.6 fL Normal 6.4 - 10.8 fL Remisol Heme Platelets (Bld) [#/Vol] 205.0 E9/L Normal 150.0 - 500.0 E9/L Remisol Heme RBC (Bld) [#/Vol] 4.3 E12/L Normal 4.3 - 5.9 E12/L Remisol Heme WBC corrected for nucl RBC Auto (Bld) [#/Vol] 8.1 E9/L Normal 4.0 - 11.0 E9/L Remisol Heme Monitor Recordon 07-07-2023 Monitor Record [id number]#1.00 TIFF Normal [facility] Monitor Record [id number]#1.00 TIFF Normal [facility] Monitor Record [id number]#1.00 TIFF Normal [facility] Monitor Record [id number]#1.00 TIFF Normal [facility] Monitor Record [id number]#1.00 TIFF Normal [facility] Monitor Record [id number]#1.00 TIFF Normal [facility] Progress Note-Physicianon Progress Note-Physician Subjective Detail vancomycin Patient seen earlier today voicing no complaints overnight or this morning Review of Systems Constitutional: no fever, no chills, no sweats, no weakness Respiratory: no shortness of breath, no cough, no orthopnea, no wheezing Cardiovascular: no chest pain, no palpitations, no edema Additional ROS info: Except as noted in the above Review of Systems and in the History of Present Illness all other systems have been reviewed and are negative or noncontributory. Objective Vitals & Measurements T: 36.5 ?C(Oral) TMIN: 36.5 ?C(Oral) TMAX: 36.9 ?C(Axillary) HR: 85(Monitored) RR: 17 BP: 122/82 SpO2: 95% HT: 185 cm WT: 111.4 kg Intake & Output This visit (24 hour periods starting at 07:00 EDT) 07/07/23 * 07/06/23 07/05/23 Total Summary Intake mL 560 1,510.25 -- Output mL -- -- -- Fluid Balance 560 1,510.25 -- Intake (3) Generic Diluent, vancomycin mL -- 300 -- Oral Intake mL 560 240 -- Sodium Chloride 0.9% intravenous solution 1,000 mL mL -- 970.25 -- Total 560 1,510.25 -- Output (0) Counts (1) Urine Count 1 2 -- * This column has not completed the indicated time period. Physical Exam Constitutional: Awake and alert; oriented x 3 with no apparent distress or respiratory distress Head/neck: Neck supple with no palpable lymphadenopathy, bruits or masses; trachea midline Chest/lungs: Clear to auscultation bilaterally no wheezes or rhonchi noted bilaterally Cardiovascular: Regular rate and rhythm; normal S1-S2 with no murmur; no pitting edema and 2+ pulses bilaterally Gastrointestinal: Soft, nontender, nondistended, positive bowel sounds Neurological: Nonfocal; cranial nerves II through XII appear intact Psychological: Pleasant affect Dermatological: Erythema right lower extremity from the knee down; lymphangitic spread noted left medial thigh but improving; there is a small blister at the top of the bandages below the knee with no drainage noted Lab Results WBC: 8.1 E9/L (07/07/23 05:35:00) RBC: 4.3 E12/L (07/07/23 05:35:00) HGB: 13.8 gm/dL (07/07/23 05:35:00) Hct: 40.6 % (07/07/23 05:35:00) MCV: 94.5 fL (07/07/23 05:35:00) MCH: 32.2 pg (07/07/23 05:35:00) MCHC: 34.1 gm/dL (07/07/23 05:35:00) RDW: 13.6 % (07/07/23 05:35:00) Platelet: 205 E9/L (07/07/23 05:35:00) MPV: 8.6 fL (07/07/23 05:35:00) Neutro Auto: 69.7 % (07/07/23 05:35:00) Lymph Auto: 20.4 % (07/07/23 05:35:00) [place] Auto: 6.4 % (07/07/23 05:35:00) Eos Auto: 3 % (07/07/23 05:35:00) Basophil Auto: 0.5 % (07/07/23 05:35:00) Neutro Absolute: 5.7 E9/L (07/07/23 05:35:00) Lymph Absolute: 1.7 E9/L (07/07/23 05:35:00) [place]fisher Absolute: 0.5 E9/L (07/07/23 05:35:00) Eos Absolute: 0.2 E9/L (07/07/23 05:35:00) Basophil Absolute: 0 E9/L (07/07/23 05:35:00) Glucose Lvl: 103 mg/dL (07/07/23 05:35:00) BUN: 27 mg/dL High (07/07/23 05:35:00) Creatinine: 1.6 mg/dL High (07/07/23 05:35:00) eGFR: 47 mL/min/1.73 m2 Low (07/07/23 05:35:00) BUN/Creat Ratio: 17 (07/07/23 05:35:00) Sodium Lvl: 137 mmol/L (07/07/23 05:35:00) Potassium Lvl: 3.7 mmol/L (07/07/23 05:35:00) Chloride: 106 mmol/L (07/07/23 05:35:00) CO2: 25 mmol/L (07/07/23 05:35:00) AGAP: 10 mEq/L (07/07/23 05:35:00) Calcium Lvl: 8.2 mg/dL Low (07/07/23 05:35:00) U Sodium: 127 mmol/L (07/06/23 20:20:00) U Creatinine: 93.5 mg/dL (07/06/23 20:20:00) UA Spec Desc: Random Urine (07/06/23 20:20:00) UA Color: Light-Yellow (07/06/23 20:20:00) UA Clarity: Clear (07/06/23 20:20:00) UA Spec Grav: 1.020 (07/06/23 20:20:00) UA pH: 5.5 (07/06/23 20:20:00) UA Protein: Trace Abnormal (07/06/23 20:20:00) UA Glucose: Negat (07/06/23 20:20:00) UA Ketones: Negat (07/06/23 20:20:00) UA Bili: Negat (07/06/23 20:20:00) UA Blood: Negat (07/06/23 20:20:00) UA Nitrite: Negat (07/06/23 20:20:00) UA Urobilinogen: Negat (07/06/23 20:20:00) UA Leuk Est: Negat (07/06/23 20:20:00) Assessment/Plan 68-year-old male admitted for cellulitis of his right leg having failed outpatient antibiotics. He has acute kidney injury as well -he does take hydrochlorothiazide and lisinopril plus Mobic. Comorbidities include hypertension, gout, BPH, nephrolithiasis and GERD 1. Cellulitis of right leg (L03.115: Cellulitis of right lower limb) Continue IV vancomycin Podiatry consult pending Check labs in a.m. Good improvement especially with lymphangitic spread Ordered: Initial Hospital Care/Day Moderate 55 Minutes 25066 2. Acute kidney injury (N17.9: Acute kidney failure, unspecified) FENa 1.8 which may be intrinsic; patient was taking HCTZ and lisinopril which had been held and he was also taking Mobic Creatinine down to 1.6 Continue to trend Ordered: Initial Hospital Care/Day Moderate 55 Minutes [id number] Orders: acetaminophen, 650 mg = 2 tab(s), Tab, Oral, q6hr PRN Pain, Routine, Start date 07/06/23 16:49:00 EDT, 07/06/23 16:49:00 EDT Al hydroxide/Mg hydroxide/simethicone, 30 mL, Susp-Or (more content not included)... Normal [facility] Comment on above: Result Comment: Elec tronically Signed By: Dwight Eddy DO\.br\Date and Time Signed: 07/07/23 14:55 EDT eGFRon 07-07-2023 eGFR 47 mL/min/1.73 m2 Low >=59 [facility] Comment on above: Order Comment: Order added by Discern Expert. Performed By: #### 1 [id number] #### [facility] [address] [place] [address] [facility] Anion gap [Moles/Vol] 12 mmol/L Normal 6-16 [facility] Comment on above: Performed By: #### 2 318056 #### [facility] [address] [place] [address] Calcium [Mass/Vol] 8.6 mg/dL Low 8.9-11.1 [facility] Comment on above: Performed By: #### 2 [id number] #### [facility] [address] [place] [address] Chloride [Moles/Vol] 104 mmol/L Normal 101-111 [facility] Comment on above: Performed By: #### 2 036339 #### [facility] [address] [place] [address] CO2 [Moles/Vol] 25 mmol/L Normal 21-31 [facility] Comment on above: Performed By: #### 2 [id number] #### [facility] [address] [place] [address] Creatinine [Mass/Vol] 1.8 mg/dL High 0.5-1.3 [facility] Comment on above: Performed By: #### 2 272417 #### [facility] [address] [place] [address] Glucose [Mass/Vol] 111 mg/dL Normal 55-199 [facility] Comment on above: Performed By: #### 2 887089 #### [facility] [address] [place] [address] Potassium [Moles/Vol] 3.5 mmol/L Normal 3.5-5.3 [facility] Comment on above: Performed By: #### 2 226957 #### [facility] [address] [place] [address] Sodium [Moles/Vol] 137 mmol/L Normal 135-145 [facility] Comment on above: Performed By: #### 2 740181 #### [facility] [address] [place] [address] Urea nitrogen [Mass/Vol] 29 mg/dL High 5-21 [facility] Comment on above: Performed By: #### 2 418018 #### [facility] [address] [place] [address] Urea nitrogen/Creatinine [Mass ratio] 16 No Units Normal 10-20 [facility] Comment on above: Performed By: #### 2 882352 #### [facility] [address] [place] [address] CBC w/ Auto Diffon 4 Basophils/100 WBC (Bld) 0.4 % Normal 0.0-2.0 [facility] Comment on above: Performed By: #### 2 677822 #### [facility] [address] [place] [address] Basophils/Leukocytes Auto (Bld) [Pure # fraction] 0.0 E9/L Normal 0.0-0.2 [facility] Comment on above: Performed By: #### 2 200390 #### [facility] [address] [place] [address] Eosinophils (Bld) [#/Vol] 0.2 E9/L Normal 0.0-0.5 [facility] Comment on above: Performed By: #### 2 105265 #### [facility] [address] [place] [address] Eosinophils/100 WBC (Bld) 2.8 % Normal 0.0-8.0 [facility] Comment on above: Performed By: #### 2 902251 #### [facility] [address] [place] [address] Erythrocyte distribution width (RBC) [Ratio] 13.9 % Normal 10.9-14.2 [facility] Comment on above: Performed By: #### 2 612298 #### [facility] [address] [place] [address] Hematocrit (Bld) [Volume fraction] 46.2 % Normal 37.7-49.0 [facility] Comment on above: Performed By: #### 2 047017 #### [facility] [address] [place] [address] Hemoglobin (Bld) [Mass/Vol] 15.6 g/dL Normal 13.5-17.5 [facility] Comment on above: Performed By: #### 2 116652 #### [facility] [address] [place] [address] Lymphocytes (Bld) [#/Vol] 1.3 E9/L Normal 1.0-4.0 [facility] Comment on above: Performed By: #### 2 768290 #### [facility] [address] [place] [address] Lymphocytes/100 WBC (Bld) 18.3 % Normal 14.0-50.0 [facility] Comment on above: Performed By: #### 2 927814 #### [facility] [address] [place] [address] MCH (RBC) [Entitic mass] 32.2 pg Normal 27.0-34.0 [facility] Comment on above: Performed By: #### 2 597770 #### [facility] [address] [place] [address] MCHC (RBC) [Mass/Vol] 33.7 g/dL Normal 31.4-36.0 [facility] Comment on above: Performed By: #### 2 [id number] #### [facility] [address] [place] [address] MCV (RBC) [Entitic vol] 95.3 fL Normal 80.0-100.0 [facility] Comment on above: Performed By: #### 2 [id number] #### [facility] [address] [place] [address] Monocytes (Bld) [#/Vol] 0.6 E9/L Normal 0.2-1.0 [facility] Comment on above: Performed By: #### 2 416102 #### [facility] [address] [place] [address] Neutrophils (Bld) [#/Vol] 4.9 E9/L Normal 2.0-7.5 [facility] Comment on above: Performed By: #### 2 314219 #### [facility] [address] [place] [address] Neutrophils/100 WBC (Bld) 70.2 % Normal 36.0-75.0 [facility] Comment on above: Performed By: #### 2 219076 #### [facility] [address] [place] [address] Platelet 189.0 E9/L Normal 150.0-500.0 [facility] Comment on above: Performed By: #### 2 225726 #### [facility] [address] [place] [address] Platelet mean volume (Bld) [Entitic vol] 8.5 fL Normal 6.4-10.8 [facility] Comment on above: Performed By: #### 2 772290 #### [facility] [address] [place] [address] RBC (Bld) [#/Vol] 4.8 E12/L Normal 4.3-5.9 [facility] Comment on above: Performed By: #### 2 140417 #### [facility] [address] [place] [address] WBC corrected for nucl RBC Auto (Bld) [#/Vol] 7.0 E9/L Normal 4.0-11.0 [facility] Comment on above: Performed By: #### 2 315414 #### [facility] [address] [place] [address] CHEMISTRYOrdered By: SYSTEM SYSTEM on 07-06-2023 Lactic Acid Lvl 1.0 mmol/L Normal 0.5 - 2.2 mmol/L Remisol Chem Sodium [Moles/Vol] 127 mmol/L Invalid Interpretation Code Remisol Chem U Creatinine 93.5 mg/dL Invalid Interpretation Code Remisol Chem Consent for Treatmenton 06-19 Consent for Treatment [id number]#1.00T IFF Normal [facility] ED Clinical Summaryon 2023 ED Clinical Summary (Inserted Image. Denisha ble to display) [address] [id number] ED Clinical Summary Person Information Name: JEAN MARIE MAST [facility] Age: 68 Years : 1955 Sex: Male Language: Nigerien PCP: Michelle Figueroa MD Marital Status: Visit Id: Visit Reason: Cellulitis - Leg; Lower leg pain-swelling; SENT BY DR MARISCAL, LEG PAIN Speciality: Acuity: 3 Enc Type: Inpatient Med Service: Emergency Arrival: 07/06/2023 12:00:42 Discharge: LOS: 000 03:16 Checkin: 07/06/2023 12:00:42 Checkout: 07/06/2023 15:16:48 Dispo Type: Admitted as IP to this [facility] EVENTS: Event Name Event Status Request Date/Time Start Date/Time Complete Date/Time Arrive Complete 07/06/2023 12:00:42 07/06/2023 12:00:42 07/06/2023 12:00:42 Document Home Meds Complete 07/06/2023 12:00:42 07/06/2023 13:39:46 07/06/2023 13:39:46 Triage Complete 07/06/2023 12:00:42 07/06/2023 12:13:25 07/06/2023 12:13:25 Registration Complete 07/06/2023 12:03:52 07/06/2023 12:03:52 07/06/2023 12:03:52 Reg Complete Request 07/06/2023 12:03:52 Reg Bed Request Complete 07/06/2023 12:03:52 07/06/2023 12:03:52 07/06/2023 12:03:52 Bed Assign Complete 07/06/2023 12:08:47 07/06/2023 12:08:47 07/06/2023 12:08:47 Dr Exam Complete 07/06/2023 12:08:47 07/06/2023 12:12:06 07/06/2023 12:12:06 RN Exam Complete 07/06/2023 12:08:47 07/06/2023 12:50:03 07/06/2023 12:50:03 Registration Complete 07/06/2023 12:12:06 07/06/2023 14:38:51 07/06/2023 14:38:51 Dr Exam Complete 07/06/2023 12:16:19 07/06/2023 12:16:19 07/06/2023 12:16:19 Meds Admin Request 07/06/2023 12:17:26 Pending Labs Inlab 07/06/2023 12:17:26 Lab Inlab 07/06/2023 12:17:26 Pending Labs Complete 07/06/2023 12:40:09 07/06/2023 12:40:09 07/06/2023 13:02:00 Lab Complete 07/06/2023 12:40:09 07/06/2023 12:40:09 07/06/2023 13:02:00 Pending Labs Complete 07/06/2023 12:45:02 07/06/2023 12:45:02 07/06/2023 12:45:03 Meds Admin Complete 07/06/2023 13:30:02 07/06/2023 13:48:34 Consult Request 07/06/2023 14:20:40 Hospitalist Consult Request 07/06/2023 14:20:40 Bed Request Request 07/06/2023 14:36:36 Reg Bed Request Complete 07/06/2023 14:36:36 07/06/2023 14:38:51 07/06/2023 14:38:51 Admit Request 07/06/2023 14:36:36 Patient Care Request 07/06/2023 14:38:51 Patient Care Request 07/06/2023 14:38:52 Patient Care Request 07/06/2023 14:38:52 Patient Care Request 07/06/2023 14:38:52 Medicare Form Request 07/06/2023 14:38:53 Patient Care Request 07/06/2023 14:38:53 Patient Care Request 07/06/2023 14:38:53 ADDRESS: [address] [place] [id number] [facility] DOC NOTES: MEDICAL INFORMATION: Prescriptions Given: Medications to Continue with No Changes Other Medications allopurinol (allopurinol 100 mg Tab) 2 Tablets By Mouth every day. amlodipine (amLODIPine 5 mg Tab) 1 Tablets By Mouth every day. hydrochlorothiazide (hydrochlorothiazide 25 mg Tab) 1 Tablets By Mouth every day. lactobacillus acidophilus (Acidophilus Extra Strength oral capsule) 1 Capsules By Mouth every day. lisinopril (lisinopril 40 mg Tab) 1 Tablets By Mouth every day. meloxicam (meloxicam 15 mg Tab) 1 Tablets By Mouth every day. omeprazole (omeprazole 20 mg Cap-DR) 1 Capsules By Mouth every day. PATIENT EDUCATION INFORMATION: Instructions: Follow up: DIAGNOSIS: 1:Cellulitis of right leg Normal [facility] ED Note-Physicianon 07-06-19 ED Note-Physician Basic Information Time Seen: Franki Elias PA-C 07/06/2023 12:12 Chief Complaint pt reports he saw Yanira in this last week for cellulitis of RLE. Pt reports on ABX and not improving. Dolce told him to come to ED due to no improvement in infection. Chills and fevers sunday. denies n/v. History of Present Illness 68-year-old male comes to the ED for evaluation of right leg cellulitis. Patient initially cellulitis to the right lower leg 06/30. This was associated with fever and chills. He saw podiatry the next day and was started on Augmentin. He followed up podiatry again on 07/03 and had additional wound care performed with topical treatments and Unna boot wrap. He continues to have progressive swelling and erythema of the right leg. He did have negative ultrasound this week for DVT. His chills have resolved. No significant pain. Review of Systems A 10 point review of systems is negative except as noted above. Medical and Surgical History: Reviewed and noted Social history: Lives at home Tobacco: Denies Physical Exam Vitals & Measurements T: 36.8 ?C(Oral) HR: 73(Monitored) RR: 16 BP: 154/100 SpO2: 95% HT: 185.42 cm WT: 109.4 kg BMI: 31.82 Nurses notes and vital signs reviewed and patient is not hypoxic. General: The patient appears well and in no significant distress Patient is resting comfortably on the exam bed. Skin: Warm, dry, no pallor noted. Head: Atraumatic. Neck: No JVD. Eye: Normal conjunctiva. Ears, Nose, Mouth, and Throat: Moist mucous membranes Cardiovascular: Strong distal pulses. Chest wall: Respiratory: Respirations are nonlabored. Back: Normal range of motion, no CVA tenderness. Musculoskeletal: Diffuse edema and erythema to the right lower extremity extending up the medial aspect of the right thigh. Gastrointestinal: Soft and nontender. Urological: Neurological: Awake and alert. No focal deficits. Follows commands. GCS 15. Psychiatric: Cooperative. Medical Decision Making Patient with cellulitic changes of the right lower extremity. Laboratory studies reviewed and noted. Chronic renal findings. At this point he has failed outpatient therapy as he has been on oral antibiotics for 5 days as well as topical therapies. Case is discussed with clinical pharmacy. The patient started on IV vancomycin, and case discussed the hospitalist for admission. Assessment/Plan 1. Cellulitis of right leg (L03.115: Cellulitis of right lower limb) Orders: Sodium Chloride 0.9% intravenous solution 1,000 mL, 1,000 mL, IV, 20 mL/hr, STAT, Start date 07/06/23 12:17:00 EDT, 50 hour(s), Total volume (mL): 1,000, 109.4 kg, 2.37, m2 vancomycin + Generic Diluent 300 mL, 1,500 mg = 300 mL, Soln-IV, IV Piggyback, Once, Stop date 07/06/23 13:29:00 EDT, STAT, Start date 07/06/23 13:29:00 EDT, 200 mL/hr, Infuse over 90 minute(s) Basic Metabolic Panel Blood Culture Charcoal Blood Culture Charcoal CBC w/ Auto Diff ED Physician consult Hospitalist for continued care eGFR Extra Blue Tube Lactic Acid Medications Administered Given Sodium Chloride 0.9% IV Anyi 1000 mL 1,000 mL, 1000 mL, IV vanc1.5SOL [F] 1500 mg + GenDil 300 mL, IV Piggyback Disposition Plan Patient Discharge Condition Disposition: Admitted to the hospital Condition: Improved and stable Counseled: Patient and/or family were counseled to workup, results, treatment plan and follow-up recommendations Discharge Prescription List Prescriptions No active prescription medications Follow-up No qualifying data available Attestation I performed a substantive part of the MDM during the patient?s E/M visit. I personally made or approved the documented management plan and acknowledge its risk of complications. (Independent Interpretation) My (EKG/X-Ray/US/CT) interpretation as above. (Discussion) Management/test interpretation discussed with APC. This report was transcribed using voice recognition software. Every effort was made to ensure accuracy, however, inadvertently computerized wood shingle roofer mistakes may be present. Appropriate healthcare PPE was used in evaluating this patient. Problem List/Past Medical History Ongoing Asymptomatic microscopic hematuria BPH with urinary obstruction kidney stones Historical Gout HTN - Hypertension Procedure/Surgical History Cysto, left ureteral stent removal, left RGP, left ureteronephroscopy with Holmium laser ablation, multiple basket extraction of stone,fragments, replacement of JJ ureteral stent under fluoroscopic guidance. (09/08/2015), Cystoscopy (08/04/2015), Abdominal hernia. Medications Inpatient Sodium Chloride 0.9% IV Anyi 1000 mL 1,000 mL, 1000 mL, IV Home Acidophilus Extra Strength oral capsule, 1 cap(s), Oral, Daily allopurinol 100 mg Tab, 200 mg= 2 tab(s), Oral, Daily amLODIPine 5 mg Tab, 5 mg= 1 tab(s), Oral, Daily hydrochlorothiazide 25 mg Tab, 25 mg= 1 tab(s), Oral, Daily lisinopril 40 mg Tab, 40 mg= 1 tab(s), Oral, Daily meloxicam 15 mg Tab, 15 mg= 1 (more content not included)... Normal [facility] Comment on above: Result Comment: Elec tronically Signed By: Franki Elias PA-C\.br\Date and Time Signed: 07/06/23 14:52 EDT\.br\Electronically Co-Signed By: Arnel Modi DO\.br\Date and Time Co-Signed: 07/06/23 15:54 EDT ED Patient Education Noteon 07-06-2023 ED Patient Education Note Normal [facility] ED Patient Summaryon ED Patient Summary (Inserted Image. Denisha ble to display) [place] [id number] Patient Discharge Instructions Person Information Name: JEAN MARIE MAST SR Age: 68 Years Arrival Date: 07/06/2023 12:00:42 Discharge Diagnosis: 1:Cellulitis of right leg Primary Care Physician: Michelle Figueroa MD Provider Information Primary Provider: Arnel Modi DO Advanced Dining Car Server:Franki Elias PA-C The exam and treatment you received in the Emergency Department were for an urgent problem and are not intended as complete care. It is important that you follow up with a doctor, nurse practitioner, or physician?s assistant professor of philosophy for ongoing care. If your symptoms become worse or you do not improve as expected and you are unable to reach your usual health care provider, you should return to the Emergency Department. We are available 24 hours a day. JEAN MARIE MAST SR has been given the following list of patient education materials, prescriptions and follow-up instructions: Follow-up Instructions: In the event that this physician does not participate in your insurance network, please consult with your insurance company to find a nearby participating provider. Patient Education Materials: A MESSAGE TO ALL PATIENTS REGARDING OPIOIDS PRESCRIPTION OPIOIDS: WHAT YOU NEED TO KNOW Prescription opioids can be used to help relieve toltmwno-nb-qrebop pain and are often prescribed following a surgery or injury, or for certain health conditions. These medications can be an important part of the treatment but also come with serious risks. It is important to work with your healthcare provider to make sure you are getting the safest, most effective care. WHAT ARE THE RISKS AND SIDE EFFECTS OF OPIOID USE? Prescription opioids carry serious risks of addiction and overdose, especially with prolonged use. An opioid overdose, often marked by slowed breathing, can cause sudden . The use of prescription opioids can have a number of side effects as well, even when taken as directed: ? Tolerance?meaning you might need to take more of the medication for the same pain relief ? Physical dependence?meaning you have symptoms of withdrawal when a medication is stopped ? Increased sensitivity to pain ? Constipation ? Nausea, vomiting, and dry mouth ? Sleepiness and dizziness ? Confusion ? Depression ? Low levels of testosterone that can result in lower sex drive, energy, and strength ? Itching and sweating RISKS ARE GREATER WITH: ? History of drug misuse, substance use disorder, or overdose ? Mental health conditions (such as depression or anxiety) ? Sleep apnea ? Older age (65 years and older) ? Avoid alcohol while taking prescription opioids. Also, unless specifically advised by your health care provider, medications to avoid include: ? Benzodiazepines (such as Xanax or Valium) ? Muscle relaxants (such as Soma or Flexeril) ? Hypnotics (such as Ambien or Lunesta) ? Other prescription opioids KNOW YOUR OPTIONS Talk to your health care provider about ways to manage your pain that don?t involve prescription opioids. Some of these options may actually work better and have fewer risks and side effects. Options may include: ? Pain relievers such as acetaminophen, ibuprofen, and naproxen ? Some medication that are also used for depression or seizures ? Physical therapy and exercise ? Cognitive behavioral therapy, a psychological, goal-directed approach, in which patients learn how to modify physical, behavioral, and emotional triggers of pain and stress. IF YOU ARE PRESCRIBED OPIOIDS FOR PAIN: ? Never take opioids in greater amounts or more often than prescribed. ? Follow up with your primary health care provider. o Work together to create a plan on how to manage your pain. o Talk about ways to help manage your pain that don?t involve prescription opioids. o Talk about any and all concerns and side effects. ? Help prevent misuse and abuse o Never sell or share prescription opioids. o Never use another person?s prescription opioids. ? Store prescription opioids in a secure place and out of reach of others (this may include visitors, children, friends, and family). ? Safely dispose of unused prescription opioids: Find your community drug take-back program or your pharmacy mail-back program, or flush them down the toilet, following guidance from the Food and Drug Administration (www.fda.gov/Drugs/Reso urcesForYou). ? Visit www.cdc.gov/drugoverdos e to learn about the risks of opioids abuse and overdose. ? If you believe you may be struggling with addiction, tell your health respiratory care technician and ask for guidance or call [facility]?S National Helpline at 5-228-795-NFXR. f Source: US Department of Health and Human Services/Center for Disease Control & Prevention [facility] Medications Given: Medicati (more content not included)... Normal [facility] HEMATOLOGYOrdered By: SYSTEM SYSTEM on 07-06-2023 Basophils/100 WBC (Bld) 0.4 % Normal 0.0 - 2.0 % Remisol Heme Basophils/Leukocytes Auto (Bld) [Pure # fraction] 0.0 E9/L Normal 0.0 - 0.2 E9/L Remisol Heme Eosinophils (Bld) [#/Vol] 0.2 E9/L Normal 0.0 - 0.5 E9/L Remisol Heme Eosinophils/100 WBC (Bld) 2.8 % Normal 0.0 - 8.0 % Remisol Heme Erythrocyte distribution width (RBC) [Ratio] 13.9 % Normal 10.9 - 14.2 % Remisol Heme Hematocrit (Bld) [Volume fraction] 46.2 % Normal 37.7 - 49.0 % Remisol Heme Hemoglobin (Bld) [Mass/Vol] 15.6 g/dL Normal 13.5 - 17.5 gm/dL Remisol Heme Lymphocytes (Bld) [#/Vol] 1.3 E9/L Normal 1.0 - 4.0 E9/L Remisol Heme Lymphocytes/100 WBC (Bld) 18.3 % Normal 14.0 - 50.0 % Remisol Heme MCH (RBC) [Entitic mass] 32.2 pg Normal 27.0 - 34.0 pg Remisol Heme MCHC (RBC) [Mass/Vol] 33.7 g/dL Normal 31.4 - 36.0 gm/dL Remisol Heme MCV (RBC) [Entitic vol] 95.3 fL Normal 80.0 - 100.0 fL Remisol Heme Monocytes (Bld) [#/Vol] 0.6 E9/L Normal 0.2 - 1.0 E9/L Remisol Heme Monocytes/100 WBC (Bld) 8.3 % Normal 4.0 - 14.0 % Remisol Heme Neutrophils (Bld) [#/Vol] 4.9 E9/L Normal 2.0 - 7.5 E9/L Remisol Heme Neutrophils/100 WBC (Bld) 70.2 % Normal 36.0 - 75.0 % Remisol Heme Platelet 189.0 E9/L Normal 150.0 - 500.0 E9/L Remisol Heme Platelet mean volume (Bld) [Entitic vol] 8.5 fL Normal 6.4 - 10.8 fL Remisol Heme RBC (Bld) [#/Vol] 4.8 E12/L Normal 4.3 - 5.9 E12/L Remisol Heme WBC corrected for nucl RBC Auto (Bld) [#/Vol] 7.0 E9/L Normal 4.0 - 11.0 E9/L Remisol Heme Lactic Acidon 07-06-2023 Lactic Acid Lvl 1.0 mmol/L Normal 0.5-2.2 [facility] Comment on above: Performed By: #### 2 [id number] #### [facility] [address] [place] [address] No Panel InformationOrdered By: ANGPROCESSSERVER MICROBIOLOGY on 07-06-2023 Blood Culture Charcoal No growth at 4 da ys. Final to follow at 7 days. [facility] Progress Note - Pharmacyon 0 07-06-2023 Progress Note - Pharmacy Vancomycin Pharmacy to Dose Consult Note Indication: Skin and Skin Structure Infection Goal Range: AUC/EILEEN 400-600 RECOMMENDATIONS/PLAN: Pharmacy consulted for vancomycin dosing for JEAN MARIE MAST SR, a 68 Years old, Male who is being treated for cellulitis. 1. Vanco Status: Vancomycin therapy is still active, today is day 1 of treatment. Patient is receiving vancomycin 1500 mg IV q 24 hours 2. Vanco Level: No vancomycin level has been drawn for this dosing regimen 3. Dosing Recs: new start 4. Next Level: the next paired levels are scheduled. Peak at 1630 on 07/07 and trough at 1300 on 07/08 5. MRSA Nasal Swab? a MRSA Nasal swab is not appropriate at this time We will follow patient renal function, vancomycin levels and doses with you during the course of therapy. Additional recommendations will appear in follow up notes. If you have any questions please contact the pharmacy at extension [phone]. Age: 68 Years Allergies: aspirin Weight: Last Documented Weight and Type of Scale Used Last Documented Weight Weight Measured: 111.4 kg (07/06/23 16:26:00) Type of Scale Used Weight Measured Type of Scale: Bed Scale (digital) (07/06/23 12:08:00) Height: Last Documented Height/Length Last Documented Height/Length Height/Length Measured: 185 cm (07/06/23 16:26:00) CrCl: 52 mL/min (SCr 1.8) Labs: WBC: 7 E9/L (07/06/23 12:34:00) RBC: 4.8 E12/L (07/06/23 12:34:00) HGB: 15.6 gm/dL (07/06/23 12:34:00) Hct: 46.2 % (07/06/23 12:34:00) MCV: 95.3 fL (07/06/23 12:34:00) MCH: 32.2 pg (07/06/23 12:34:00) MCHC: 33.7 gm/dL (07/06/23 12:34:00) RDW: 13.9 % (07/06/23 12:34:00) Platelet: 189 E9/L (07/06/23 12:34:00) MPV: 8.5 fL (07/06/23 12:34:00) Neutro Auto: 70.2 % (07/06/23 12:34:00) Lymph Auto: 18.3 % (07/06/23 12:34:00) Kingfisher Auto: 8.3 % (07/06/23 12:34:00) Eos Auto: 2.8 % (07/06/23 12:34:00) Basophil Auto: 0.4 % (07/06/23 12:34:00) Neutro Absolute: 4.9 E9/L (07/06/23 12:34:00) Lymph Absolute: 1.3 E9/L (07/06/23 12:34:00) Kingfisher Absolute: 0.6 E9/L (07/06/23 12:34:00) Eos Absolute: 0.2 E9/L (07/06/23 12:34:00) Basophil Absolute: 0 E9/L (07/06/23:34:00) Glucose Lvl: 111 mg/dL (07/06/23 12:34:00) BUN: 29 mg/dL High (07/06/23 12:34:00) Creatinine: 1.8 mg/dL High (07/06/23 12:34:00) eGFR: 41 mL/min/1.73 m2 Low (07/06/23 12:34:00) BUN/Creat Ratio: 16 (07/06/23 12:34:00) Sodium Lvl: 137 mmol/L (07/06/23 12:34:00) Potassium Lvl: 3.5 mmol/L (07/06/23 12:34:00) Chloride: 104 mmol/L (07/06/23 12:34:00) CO2: 25 mmol/L (07/06/23 12:34:00) AGAP: 12 mEq/L (07/06/23:34:00) Calcium Lvl: 8.6 mg/dL Low (07/06/23 12:34:00) Lactic Acid Lvl: 1 mmol/L (07/06/23:34:00) Normal [facility] U Creatinineon 07-06-2023 U Creatinine 93.5 mg/dL Invalid Interpretation Code [facility] Comment on above: Performed By: #### 2 [id number] #### [facility] [address] [place] [address] U Sodiumon 07-06-2023 Sodium [Moles/Vol] 127 mmol/L Invalid Interpretation Code [facility] Comment on above: Performed By: #### 2 [id number] #### [facility] [address] [place] [address] URINALYSISOrdered By: SYSTEM SYSTEM on 07-06-2023 Bilirubin Ql (U) Negative Normal Negativemg/ d L [facility] UA Auto SS Clarity (U) Clear (07/06/23 8:20 PM) Normal Clear [facility] UA Auto SS Color (U) Light-Yellow 1 (07/06/23 8:20 PM) Normal Yellow [facility] UA Auto SS Comment on above: Interpretive Data: M icroscopic readings are only performed on those samples that meet specific criteria set forth by [facility]. Glucose Ql (U) Negative Normal Negativemg/d L [facility] UA Auto SS Hemoglobin Auto test strip (U) [Mass/Vol] Negative Normal Negativemg/d L [facility] UA Auto SS Ketones Auto test strip Ql (U) Negative Normal Negativemg/d L [facility] UA Auto SS Leukocyte esterase Auto test strip Ql (U) Negative Normal NegativeLeu/ uL [facility] UA Auto SS Nitrite Auto test strip Ql (U) Negative Normal Negativemg/d L [facility] UA Auto SS pH (U) 5.5 *NA* (07/06/23 8:20 PM) Invalid Interpretation Code 5.0 - 9.0 [facility] UA Auto SS Protein Ql (U) Trace mg/dL Invalid Interpretation Code Negativemg/d L [facility] UA Auto SS Specific gravity (U) [Rel density] 1.020 *NA* (07/06/23 8:20 PM) Invalid Interpretation Code 1.005 - 1.030 [facility] UA Auto SS Urobilinogen (U) [Mass/Vol] Negative Normal Negativemg/d L [facility] UA Auto SS URINALYSISOrdered By: Gregor Gary on 07-06-2023 UA Spec Desc Random Urine (07/06/23 8:20 PM) Normal [facility] [place] [place] UA Auto SS Work Phone: Urinalysis with Microon 06-19 Bilirubin Ql (U) Negative Normal Negative [facility] Comment on above: Performed By: #### 4 [id number] #### [facility] [address] [place] [address] Clarity (U) Clear Normal Clear [facility] Comment on above: Performed By: #### 4 [id number] #### [facility] [address] [place] [address] Color (U) Light-Yellow Normal Yellow [facility] Comment on above: Result Comment: Micr oscopic readings are only performed on those samples that meet specific criteria set forth by [facility]. Performed By: #### 4 [id number] #### [facility] [address] [place] [address] Glucose Ql (U) Negative Normal Negative [facility] Comment on above: Performed By: #### 4 [id number] #### [facility] [address] [place] [address] Hemoglobin Auto test strip (U) [Mass/Vol] Negative Normal Negative [facility] Comment on above: Performed By: #### 4 [id number] #### [facility] [address] [place] [address] Ketones Auto test strip Ql (U) Negative Normal Negative [facility] Comment on above: Performed By: #### 4 [id number] #### [facility] [address] [place] [address] Leukocyte esterase Auto test strip Ql (U) Negative Normal Negative [facility] Comment on above: Performed By: #### 4 [id number] #### [facility] [address] [place] [address] Nitrite Auto test strip Ql (U) Negative Normal Negative [facility] Comment on above: Performed By: #### 4 [id number] #### [facility] [address] [place] [address] pH (U) 5.5 [pH] Invalid Interpretation Code 5.0-9.0 [facility] Comment on above: Performed By: #### 4 [id number] #### [facility] [address] [place] [address] Protein Ql (U) Trace Abnormal Negative [facility] Comment on above: Performed By: #### 4 [id number] #### [facility] [address] [place] [address] Specific gravity (U) [Rel density] 1.020 Invalid Interpretation Code 1.005-1.030 [facility] Comment on above: Performed By: #### 4 [id number] #### [facility] [address] [place] [address] Type of Urine collection method Random Urine Normal [facility] Comment on above: Performed By: #### 4 [id number] #### [facility] [address] [place] [address] Urobilinogen (U) [Mass/Vol] Negative Normal Negative [facility] Comment on above: Performed By: #### 4 [id number] #### [facility] [address] [place] [address] eGFRon 07-06-2023 eGFR 41 mL/min/1.73 m2 Low >=59 [facility] Comment on above: Order Comment: Order added by Discern Expert. Performed By: #### 1 [id number] #### [facility] [address] [place] [address] US LE Venous Duplex Righton 07-04-2023 US LE Venous Duplex Right Exam Date/Time: 07/03/2023 19:11 EDT Reason for Exam: I87.2, M79.661 Report IMPRESSION: NO RIGHT LOWER EXTREMITY DVT IDENTIFIED. EXAM: US LE Venous Duplex Right DATE: 07/03/2023 6:22 PM CLINICAL HISTORY: I87.2, M79.661. COMPARISON: None available. TECHNIQUE: Grayscale, compression, color and waveform Doppler analysis of the right lower extremity venous systems was performed with augmentation. Spectral Doppler waveforms were evaluated for spontaneity, phasicity and appropriate augmentation. FINDINGS: There is no deep or superficial venous thrombosis, abnormal masses, organized fluid collections, or other findings of concern identified within the right lower extremity. No DVT present within the visualized left common femoral vein. Ordering Provider: Jhonatan Mariscal FINAL REPORT Dictated: 07/04/2023 9:50 am Luis Fernando Madrid MD Signed (Electronic Signature): 07/04/2023 9:50 am Signed by: Luis Fernando Madrid MD Transcribed by: LALY Technologist: SHERI [facility] Consent for Treatmenton 06-19 Consent for Treatment [id number] IFF [facility] Physician Orderon 07-03-2023 Physician Order [id number] FF [facility] Consenton 08-15-2022 Consent [id number] CD:127 [facility] In office Testingon 08-16-19 In office Testing [id number] CD:127 [facility] Registrationon 08-15-2022 Registration [id number] CD:127 [facility] CHEMISTRYOrdered By: SYSTEM SYSTEM on 11-15-2021 Prostate specific Ag [Mass/Vol] 0.8 ng/mL Normal 0.1 - 3.5 ng/mL [facility] [place] [place] Remisol Social History Date Type Detail Facility Start: 07-25-2023 Tobacco smoking status NHIS Never smoked tobacco (finding) [facility] Start: 08-04-2022 End: 03-21-2023 Sex Assigned At Male [facility] Start: 03-21-2023 End: 04-02-2023 Alcohol intake Lifetime non-drinker (finding) [facility] Start: 08-04-2022 End: 03-21-2023 History of Social function [facility] Start: 08-12-2022 Tobacco use and exposure Former smokeless tobacco user [facility] Start: 08-12-2022 Tobacco Comment Last smoked: > 10 years [facility] Start: 08-12-2022 Alcohol Comment Caffeine intak e: 3-4 cups per day soda/pop, energy drinks, tea [facility] Start: 11-26-2019 End: 08-12-2022 Tobacco smoking status Ex-smoker (finding) [facility] Start: 1955 Sex Assigned At Not on file [facility] Start: 1955 Sex Assigned At Male [facility] Tobacco smoking status Never [facility] End: 02-19-1989 History of tobacco use Current smoker [facility] End: 02-19-1989 History of tobacco use Cigarette Smoker [facility] End: 02-19-1989 History of tobacco use Chews Tobacco [facility] NEGATED: Highlighted rowStart: NINF History of tobacco use Passive smoker [facility] Vital Signs Date Time Vital Sign Value Performing Clinician Facility 07-25-2023 13:54-0400 Body height 185.42 cm [facility] 07-25-2023 13:54-0400 Body mass index (BMI) [Ratio] 31.6 kg/m2 [facility] 07-25-2023 13:54-0400 Body temperature 98.6 [degF] [facility] 07-25-2023 13:54-0400 Body weight 108.86 kg [facility] 07-25-2023 13:54-0400 Diastolic blood pressure 79 mm[Hg] [facility] 07-25-2023 13:54-0400 Heart rate 52 /min [facility] 07-25-2023 13:54-0400 Systolic blood pressure 142 mm[Hg] [facility] 07-10-2023 13:15-0400 Hourly Rounding [facility] 07-10-2023 12:29-0400 Hourly Rounding [facility] 07-10-2023 12:29-0400 Promise to Return [facility] 07-10-2023 12:01-0400 Heart rate 79 /min [facility] 07-10-2023 12:01-0400 SaO2% (BldA) [Mass fraction] 95 % Dwight Orellanaer [facility] 07-10-2023 12:00-0400 Body temperature 97.34 [degF] Dwight Boxcker [facility] 07-10-2023 12:00-0400 Diastolic blood pressure 86 mm[Hg] Dwight Boxcker [facility] 07-10-2023 12:00-0400 Mean blood pressure 105 mm[Hg] Dwight Boxcker [facility] 07-10-2023 12:00-0400 Systolic blood pressure 142 mm[Hg] Dwight Orellanaer [facility] 07-10-2023 11:11-0400 Hourly Rounding Dwight Orellanaer [facility] 07-10-2023 11:11-0400 Promise to Return Dwight Boxcker [facility] 07-10-2023 10:08-0400 Promise to Return Dwight Orellanaer [facility] 07-10-2023 07:51-0400 Heart rate 74 /min Dwight Orellanaer [facility] 07-10-2023 07:51-0400 SaO2% (BldA) [Mass fraction] 94 % Dwight Boxcker [facility] 07-10-2023 07:50-0400 Diastolic blood pressure 81 mm[Hg] Dwight Boxcker [facility] 07-10-2023 07:50-0400 Mean blood pressure 106 mm[Hg] Dwight Boxcker [facility] 07-10-2023 07:50-0400 Systolic blood pressure 154 mm[Hg] Dwight Boxcker [facility] 07-10-2023 07:50-0400 Body temperature 98.24 [degF] Dwight Boxcker [facility] 07-10-2023 00:10-0400 Blood Pressure Location Dwight Eddy [facility] 07-10-2023 00:10-0400 Body temperature 98.24 [degF] Dwight Boxcker [facility] 07-10-2023 00:10-0400 Diastolic blood pressure 69 mm[Hg] Dwight Boxcker [facility] 07-10-2023 00:10-0400 Heart rate 83 /min Dwight Boxcker [facility] 07-10-2023 00:10-0400 Mean blood pressure 92 mm[Hg] Dwight Boxcker [facility] 07-10-2023 00:10-0400 Respiratory rate 18 /min Dwight Boxcker [facility] 07-10-2023 00:10-0400 SaO2% (BldA) [Mass fraction] 93 % Dwight Boxcker [facility] 07-10-2023 00:10-0400 Systolic blood pressure 139 mm[Hg] Dwight Orellanaer [facility] 07-09-2023 19:25-0400 Heart rate 80 /min Dwight Boxcker [facility] 07-09-2023 19:21-0400 Respiratory rate 16 /min Dwight Surjit [facility] 07-09-2023 19:21-0400 Body temperature 98.06 [degF] Dwight Boxcker [facility] 07-09-2023 19:21-0400 Mean blood pressure 91 mm[Hg] Dwight Eddy [facility] 07-09-2023 05:51-0400 Blood Pressure Location Dwight Eddy [facility] 07-09-2023 05:51-0400 Body temperature 98.24 [degF] Dwight Eddy [facility] 07-09-2023 05:51-0400 Heart rate 73 /min Dwight Eddy [facility] 07-09-2023 05:51-0400 Mean blood pressure 96 mm[Hg] Dwight Eddy [facility] 07-09-2023 05:51-0400 Respiratory rate 18 /min Dwight Eddy [facility] 07-09-2023 00:10-0400 Blood Pressure Location Dwight Eddy [facility] 07-09-2023 00:10-0400 Body temperature 98.42 [degF] Dwight Eddy [facility] 07-09-2023 00:10-0400 Heart rate 69 /min Dwight Eddy [facility] 07-09-2023 00:10-0400 Mean blood pressure 91 mm[Hg] Dwight Eddy [facility] 04-02-2023 13:09-0500 Body height 185.4 cm Geradl Padilla MD Work Phone: [facility] 04-02-2023 13:09-0500 Body mass index (BMI) [Ratio] 31.14 kg/m2 Gerald Padilla MD Work Phone: [facility] 04-02-2023 13:09-0500 Body weight 107.05 kg Gerald Padilla MD Work Phone: [facility] 04-02-2023 13:09-0500 Diastolic blood pressure 77 mm[Hg] Gerald Padilla MD Work Phone: [facility] 04-02-2023 13:09-0500 Systolic blood pressure 137 mm[Hg] Gerald Padilla MD Work Phone: [facility] 03-21-2023 14:55-0500 Body height 185.4 cm Cynthia Pocos DO Work Phone: [facility] 03-21-2023 14:55-0500 Body mass index (BMI) [Ratio] 31.14 kg/m2 Cynthia Pocos DO Work Phone: [facility] 03-21-2023 14:55-0500 Body weight 107.05 kg Cynthia Pocos DO Work Phone: [facility] 11-21-2021 08:55-0400 Blood Pressure Location [facility] 11-21-2021 08:55-0400 Diastolic blood pressure 111 mm[Hg] [facility] [employer] [facility] 11-21-2021 08:55-0400 Heart rate 73 /min [facility] [employer] 11-21-2021 08:55-0400 Respiratory rate 16 /min [facility] [employer] [facility] 11-21-2021 08:55-0400 Systolic blood pressure 148 mm[Hg] [facility] [employer] [facility] Functional Status Date Assessment Result Facility 07-06-2023 Functional Status N/A [facility] 07-06-2023 Functional Status [facility] 11-21-2021 Functional Status N/A [facility] Clinical Notes 11-21-2021 to 07-13-2023 Note Date & Type Note Facility 07-13-2023 Note Microbiology PROCEDURE: Blood Culture Charcoal [R1] SOURCE: Blood BODY SITE: Hand R COLLECTED DATE/TIME: 07/06/2023 12:25 EDT RECEIVED DATE/TIME: 07/06/2023 13:00 EDT START DATE/TIME: 07/06/2023 13:00 EDT FREE TEXT SOURCE: Curt VARGAS, rFanki Yanez PA-C FINAL REPORTS Final Report [] Verified Date/Time: 07/13/2023 15:00 EDT No growth at 7 days. Performing Locations R1: This test was performed at: [facility], [address] [place] [address], [address] [place] [address], [facility] Comment on above: Performed By: #### [id number] #### [facility] [address] [place], [place] [id number] 07-13-2023 Note Microbiology PROCEDURE: Blood Culture Charcoal [R1] SOURCE: Blood BODY SITE: Arm L COLLECTED DATE/TIME: 07/06/2023 12:34 EDT RECEIVED DATE/TIME: 07/06/2023 13:01 EDT START DATE/TIME: 07/06/2023 13:01 EDT FREE TEXT SOURCE: Curt VARGAS, Franki Yanez PA-C FINAL REPORTS Final Report [] Verified Date/Time: 07/13/2023 15:00 EDT No growth at 7 days. Performing Locations R1: This test was performed at: [facility], [address] [place] [address], [id number] [place] [address], [facility] Comment on above: Performed By: #### 1 [id number] #### [facility] [address] [place] [id number] 07-11-2023 Note Microbiology PROCEDURE: Wound Culture [R1] SOURCE: Wound BODY SITE: Ankle R COLLECTED DATE/TIME: 07/09/2023 12:52 EDT RECEIVED DATE/TIME: 07/09/2023 13:01 EDT START DATE/TIME: 07/09/2023 13:01 EDT FREE TEXT SOURCE: AYANNA SUH, Elvira URENA MD, Elvira FINAL REPORTS Final Report [] Verified Date/Time: 07/11/2023 12:05 EDT Scant growth of Staphylococcus species coagulase negative STAINS Gram Stain Report [] Verified Date/Time: 07/09/2023 14:15 EDT No organisms seen. Performing Locations R1: This test was performed at: [facility], [address] [place] [address], [facility]- , , [facility] Comment on above: Performed By: #### [id number] #### [facility] [address] [place] [address] 07-10-2023 Note Admission and Discha rge Information Admit Date/Time:07/06/2023 14:36 Admitting Physician - Dwight Eddy DO Consulting Physician - Jean Marie Mccullough M.D, DPM, Jhonatan Brandon MD, [facility]. Admitting Diagnoses: Discharge Order Date Discharge Patient - Ordered -- 07/10/23 14:57:00 EDT, Home Discharge Diagnoses 1. Cellulitis of right leg, 07/06/2023 2. Wound of right ankle, 07/09/2023 3. Acute kidney injury, 07/06/2023 4. Obese, 07/09/2023 5. HTN (hypertension), 07/09/2023 6. BPH with urinary obstruction, 07/09/2023 Cellulitis - Leg, 07/06/2023 Lower leg pain-swelling, 07/06/2023 Other obstructive and reflux uropathy, 07/09/2023 Procedure History Cysto, left ureteral stent removal, left RGP, left ureteronephroscopy with Holmium laser ablation, multiple basket extraction of stone,fragments, replacement of JJ ureteral stent under fluoroscopic guidance. (09/08/2015), Cystoscopy (08/04/2015), Abdominal hernia. 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 He was subsequently admitted to [facility] with acute cellulitis of the right leg secondary to infected right ankle wound and suspected erysipelas. He was also admitted with Acute kidney injury secondary to ATN from infection, meloxicam, hydrochlorothiazide and lisinopril.. He was treated with IV Invanz, IV vancomycin, IV fluid, as needed pain medications. He was seen in consultation by the infectious disease specialist as well as the printing machine mechanic. Crackling Press Operator did a bedside incision and drainage of anterior leg bullae. Cultures so far is isolated Staphylococcus coagulase-negative organism. Acute kidney injury improved. Patient's overall condition improved and he was anxious to be discharged home. Infectious disease specialist recommended discharging patient on Zyvox 600 mg twice daily for 2 weeks. He was seen prior to discharge and remained in an improved and stable condition for discharge and was subsequently discharged home. Patient to follow-up with infectious disease specialist, printing machine mechanic as well as his primary care physician accordingly. He will also follow-up with the vascular surgeon. New medication: Zyvox 600 mg twice daily x 2 weeks. Medications discontinued: Hydrochlorothiazide Meloxicam Services Consulted Consult to Infectious Disease Physician - Ordered -- 07/09/23 17:27:00 EDT, Cellulitis right leg, Consult and Co-manage Consult to Crackling Press Operator - Ordered -- 07/06/23 16:50:00 EDT, RLE cellulitis - failed outpt antibiotics, Consult and Co-manage Consult to Vascular Surgery - Ordered -- 07/08/23 9:53:00 EDT, Consult Dr. Brandon right lower extremity erythema vein disease, Consult and Co-manage, [facility] Physical Exam Vitals & Measurements T: 36.3 ?C(Axillary) TMIN: 36.3 ?C(Axillary) TMAX: 36.8 ?C(Oral) HR: 79(Monitored) RR: 18 BP: 142/86 SpO2: 95% WT: 108.3 kg General: alert, no acute distress Skin: warm, dry Head: no trauma, normocephalic Neck: Trachea midline, no adenopathy, no tenderness Eye: normal conjunctiva, sclera clear ENMT: TM's clear, oral mucosa moist, no pharyngeal erythema or exudate Cardiovascular: regular rate and rhythm, normal peripheral perfusion Respiratory: Lungs CTA, respirations non labored Chest wall: no deformity. Gastrointestinal: soft, non distended, no tenderness, no guarding. Back: No tenderness, Normal ROM, Normal alignment. Extremities: no deformity, no trauma, right lower extremity edema, resolving redness. Right medial ankle scabbing wounds. Neurological: oriented x 4, LOC appropriate for age, CN II-XII intact, motor strength equal & normal bilaterally, sensation equal & normal bilaterally, speech normal Psychiatric: cooperative, affect appropriate for age, normal judgement, normal psychiatric thoughts. Tests Performed ASO Titer -- Results Pending -- Vancomycin Level Trough -- Results Pending -- MRI Foot w/ + w/o Contrast Right MRI Tibia/Fibula w/ + w/o Contrast Right XR Foot 3+ Views Right XR Tib/Fib Right 2 View Please visit your patient portal for your results or contact your primary care physician. Discharge Plan Discharge Disposition Discharged to - Home independently Discharge Diet Discharge Diet(s): Low Sodium- 2000 mg (07/10/23 14:50:00) Discharge Medication List Prescriptions Zyvox 600 mg Tab, 600 mg= 1 tab(s), Oral, q12hr Home acetaminophen 325 mg Tab, 650 mg= 2 tab(s), Oral, q6hr, PRN Acidophilus Extra Strength oral capsule, 1 cap(s), Oral, Daily allopurinol 100 mg Tab, 200 mg= 2 tab(s), Oral, Daily amLODIPine 5 mg Tab, 5 mg= 1 tab(s), Oral, Daily lisinopril 40 mg Tab, 40 mg= 1 tab(s), Oral, Daily omeprazole 20 mg Cap-DR, 20 mg= 1 cap(s), Oral, Daily Follow-up With When Contact Information Jean Marie Mccullough 07/23/2023 (more content not included)... [facility] Comment on above: Result Comment: Elec tronically Signed By: AYANNA SUH, Elvira\.br\Date and Time Signed: 07/10/23 15:51 EDT 07-10-2023 Hospital Discharge instructions Patient Education 07/10/2023 15:22:59 Cellulitis, Adult, [id number] Cellulitis, Adult Cellulitis is a skin infection. The infected area is often warm, red, swollen, and sore. It occurs most often in the arms and lower legs. It is very important to get treated for this condition. What are the causes? This condition is caused by bacteria. The bacteria enter through a break in the skin, such as a cut, burn, insect bite, open sore, or crack. What increases the risk? This condition is more likely to occur in people who: Have a weak body defense system (immune system). Have open cuts, donato, bites, or scrapes on the skin. Are older than 60 years of age. Have a blood sugar problem (diabetes). Have a long-lasting (chronic) liver disease (cirrhosis) or kidney disease. Are very overweight (obese). Have a skin problem, such as: ?Itchy rash (eczema). ?Slow movement of blood in the veins (venous stasis). ?Fluid buildup below the skin (edema). Have been treated with high-energy rays (radiation). Use IV drugs. What are the signs or symptoms? Symptoms of this condition include: Skin that is: ?Red. ?Streaking. ?Spotting. ?Swollen. ?Sore or painful when you touch it. ?Warm. A fever. Chills. Blisters. How is this diagnosed? This condition is diagnosed based on: Medical history. Physical exam. Blood tests. Imaging tests. How is this treated? Treatment for this condition may include: Medicines to treat infections or allergies. Home care, such as: ?Rest. ?Placing cold or warm cloths (compresses) on the skin. Hospital care, if the condition is very bad. Follow these instructions at home: Medicines Take [id number] and prescription medicines only as told by your doctor. If you were prescribed an antibiotic medicine, take it as told by your doctor. Do not stop taking it even if you start to feel better. General instructions Drink enough fluid to keep your pee (urine) pale yellow. Do not touch or rub the infected area. Raise (elevate) the infected area above the level of your heart while you are sitting or lying down. Place cold or warm cloths on the area as told by your doctor. Keep all follow-up visits as told by your doctor. This is important. Contact a doctor if: You have a fever. You do not start to get better after 1 2 days of treatment. Your bone or joint under the infected area starts to hurt after the skin has healed. Your infection comes back. This can happen in the same area or another area. You have a swollen bump in the area. You have new symptoms. You feel ill and have muscle aches and pains. Get help right away if: Your symptoms get worse. You feel very sleepy. You throw up (vomit) or have watery poop (diarrhea) for a long time. You see red streaks coming from the area. Your red area gets larger. Your red area turns dark in color. These symptoms may represent a serious problem that is an emergency. Do not wait to see if the symptoms will go away. Get medical help right away. Call your local emergency services (911 in the [place] Do not drive yourself to the hospital. Summary Cellulitis is a skin infection. The area is often warm, red, swollen, and sore. This condition is treated with medicines, rest, and cold and warm cloths. Take all medicines only as told by your doctor. Tell your doctor if symptoms do not start to get better after 1 2 days of treatment. This information is not intended to replace advice given to you by your health care provider. Make sure you discuss any questions you have with your health care provider. Document Revised: 11/17/2021 Document Reviewed: 11/17/2021 [employer] Patient Education 2022 [employer]. Follow Up Care 07/06/2023 12:01:51 With:Dixie Brandon Address: [address] [place] [address]- Business (1) When:1 to 2 weeks Comments:Call for followup appointment With:Jean Marie Mccullough Address: [address] [place] [address]- Business (1) When:07/23/2023 13:45:00 With:Michelle Figueroa Address: [address] [place] [address]- Business (1) When:07/17/2023 10:00:00 With:Jhonatan Mariscal Address: [facility] [place] [address] [place] [address]- When:07/11/2023 08:20:00 [facility] 07-10-2023 Evaluation + Plan note Extrac des from: Title:Discharge Note Author:AYANNA SUH, Elvira Richardson ate:07/10/23 Discharged to - Home independently Discharge Diet(s): Low Sodium- 2000 mg (07/10/23 14:50:00) Prescriptions Zyvox 600 mg Tab, 600 mg= 1 tab(s), Oral, q12hr Home acetaminophen 325 mg Tab, 650 mg= 2 tab(s), Oral, q6hr, PRN Acidophilus Extra Strength oral capsule, 1 cap(s), Oral, Daily allopurinol 100 mg Tab, 200 mg= 2 tab(s), Oral, Daily amLODIPine 5 mg Tab, 5 mg= 1 tab(s), Oral, Daily lisinopril 40 mg Tab, 40 mg= 1 tab(s), Oral, Daily omeprazole 20 mg Cap-DR, 20 mg= 1 cap(s), Oral, Daily With When Contact Information Jean Marie Mccullough 07/23/2023 01:45 PM EDT [address] [place] [address]- Business (1) Additional Instructions: Michelle Figueroa 07/17/2023 10:[address] AM EDT [address] [place] [address]- Business (1) Additional Instructions: Jhonatan Mariscal 07/11/2023 08:20 AM EDT [facility] [address] [place] [address]- Additional Instructions: Dixie Brandon Within 1 to 2 weeks [address] [place] [address]- Business (1) Additional Instructions: Call for followup appointment Cellulitis, Adult, [id number] Extracted from: Title:Infection Admission H&P * Author:Jean Marie Mccullough M.D Date:07/10/23 Impression and Plan Diagnosis Erysipelas Right Leg. Course: Progressing as expected. Orders Patient broad-spectrum IV antibiotics. Blood cultures remain negative. Patient clinically improving. Continue to spread that was apparently present has resolved. Well-demarcated areas of skin involvement make infection seem more consistent with erysipelas. Will check ASO titer but it is noted that he has coagulase-negative staph that is growing scantly from the ruptured bulla. ? If this is conlonizer. Either way oral linezolid would be appropriate for discharge for 2 weeks. Patient can follow-up with me 2 weeks at that time we can reevaluate whether or not further antibiotics are needed.. Extracted from: Title:APSO Note Author:AYANNA SUH, Mbanefo Date: 68-year-old male with histor y of hypertension, gout, kidney stones, GERD presented with complaints of right leg swelling, redness, pain, that failed outpatient treatment with oral antibiotics developed a fever and nausea and was admitted with acute cellulitis of the right leg secondary to infected right ankle wound, acute kidney injury, 1. Cellulitis of right leg (L03.115: Cellulitis of right lower limb) Acute cellulitis of the right leg involving the ankle and foot. Present on admission. Treating with IV Invanz and vancomycin. Seen by printing machine mechanic and had a bedside incision and drainage of blister/bullae. Status post wound dressing. MRI does not show any deep tissue abscess of bone involvement/osteomyelitis. Infectious disease consult pending. Vascular surgery consult can be done as outpatient. Ordered: [facility] Hospital Care/Day Moderate 35 Minutes 59918 2. Wound of right ankle (S91.001A: Unspecified open wound, right ankle, initial encounter) Continue wound dressings. Wound cultures so far not isolating any organisms. Ordered: [facility] Hospital Care/Day Moderate 35 Minutes [id number] Wound Culture 3. Acute kidney injury (N17.9: Acute kidney failure, unspecified) Acute kidney injury secondary to ATN from above infection, diuretics and lisinopril. Improved. Lisinopril and hydrochlorothiazide suspended. Treated with IV fluid. Ordered: [facility] Hospital Care/Day Moderate 35 Minutes 54492 4. Obese (E66.9: Obesity, unspecified) Recommend therapeutic lifestyle modification changes. Ordered: [facility] Hospital Care/Day Moderate 35 Minutes [id number] 5. HTN (hypertension) (I10: Essential (primary) hypertension) On amlodipine. 6. BPH with urinary obstruction (N40.1: Benign prostatic hyperplasia with lower urinary tract symptoms) Supportive care. Disposition: Home soon pending infectious disease consult. I discussed the diagnosis and plan of care with the patient at the bedside. Moderate level of MDM based on addressing above issues. This documentation was transcribed using voice recognition software. Several attempts were made to ensure accuracy. However inadvertent computerized wood shingle roofer errors may be present. Elvira Urena. Hospitalist. Orders: ertapenem + Sodium Chloride 0.9% intravenous solution 50 mL, 1,000 mg = 1 EA, Injection, IV Piggyback, Daily, Start date 07/10/23 9:00:00 EDT, 100 mL/hr, Infuse over 30 minute(s) ertapenem + Sodium Chloride 0.9% intravenous solution 50 mL, 1,000 mg = 1 EA, Injection, IV Piggyback, Once, Stop date 07/09/23 13:00:00 EDT, Start date 07/09/23 13:00:00 EDT, 100 mL/hr, Infuse over 30 minute(s) Extracted from: Title:SOAP Note: Simple * Author:Jhonatan Mariscal DPM Date:07/09/23 Impression and Plan Today I performed an incision and drainage of the bulla/blister anterior aspect of the right leg. Clear fluid was noted no arnold purulence was noted I recommend continual IV antibiotics as directed. I did recommend consultation with infectious disease I educated the patient on the MRI findings. From a podiatry standpoint we will follow-up with the patient as an outpatient once discharged from the hospital by the hospitalist as well as infectious disease. Extracted from: Title:APSO Note Author:Elvira URENA MD Date: 68-year-old male with histor y of hypertension, gout, kidney stones, GERD presented with complaints of right leg swelling, redness, pain, that failed outpatient treatment with oral antibiotics developed a fever and nausea and was admitted with acute cellulitis of the right leg secondary to infected right ankle wound, acute kidney injury, 1. Cellulitis of right leg (L03.115: Cellulitis of right lower limb) Acute cellulitis of the right leg involving ankle and foot. Present on admission. Podiatry consult reviewed by me. I appreciate and agreed recommendations. Patient will undergo MRI of the lower extremity to evaluate for deep tissue infection and abscess formation. Meanwhile continue on IV vancomycin and added IV Invanz for broader coverage pending MRI. Vascular surgery consult pending. Ordered: ertapenem + Sodium Chloride 0.9% intravenous solution 50 mL, 500 mg = 0.5 EA, IV Piggyback, Daily, Routine, Start date 07/10/23 9:00:00 EDT, 100 mL/hr, Infuse over 30 minute(s), 07/09/23 12:12:00 EDT [facility] Hospital Care/Day Moderate 35 Minutes [id number] 2. Wound of right ankle (S91.001A: Unspecified open wound, right ankle, initial encounter) Present during this admission. Wound culture. MRI of the foot pending. Ordered: ertapenem + Sodium Chloride 0.9% intravenous solution 50 mL, 500 mg = 0.5 EA, IV Piggyback, Daily, Routine, Start date 07/10/23 9:00:00 EDT, 100 mL/hr, Infuse over 30 minute(s), 07/09/23 12:12:00 EDT [facility] Hospital Care/Day Moderate 35 Minutes [id number] Wound Culture 3. Acute kidney injury (N17.9: Acute kidney failure, unspecified) Acute kidney injury secondary to ATN from above infection, diuretic and lisinopril. Improved. Avoid nephrotoxic drugs. Lisinopril and hydrochlorothiazide suspended. Treated with IV fluid. Ordered: [facility] Hospital Care/Day Moderate 35 Minutes 29915 4. Obese (E66.9: Obesity, unspecified) Recommend therapeutic lifestyle modification changes. Ordered: [facility] Hospital Care/Day Moderate 35 Minutes [id number] 5. HTN (hypertension) (I10: Essential (primary) hypertension) Blood pressure controlled. On amlodipine. 6. BPH with urinary obstruction (N40.1: Benign prostatic hyperplasia with lower urinary tract symptoms) Supportive care. Disposition: Pending MRI of the right lower extremity and vascular surgery consult. I discussed the diagnosis and plan of care with the patient at the bedside. Moderate level of MDM based on addressing above issues. This documentation was transcribed using voice recognition software. Several attempts were made to ensure accuracy. However inadvertent computerized wood shingle roofer errors may be present. Elvira Urena. Hospitalist. Other obstructive and reflux uropathy (N13.8: Other obstructive and reflux uropathy) Orders: ertapenem + Sodium Chloride 0.9% intravenous solution 50 mL, 500 mg = 0.5 EA, IV Piggyback, Once, Stop date 07/09/23 13:00:00 EDT, Routine, Start date 07/09/23 13:00:00 EDT, 100 mL/hr, Infuse over 30 minute(s), 07/09/23 12:13:00 EDT Extracted from: Title:Progress/SOAP Note Author:Cyndy Eddy DOArti Date:07/08/23 68-year-old male admitted fo r cellulitis of his right leg having failed outpatient antibiotics. He has acute kidney injury as well -he does take hydrochlorothiazide and lisinopril plus Mobic. Comorbidities include hypertension, gout, BPH, nephrolithiasis and GERD 1. Cellulitis of right leg (L03.115: Cellulitis of right lower limb) Continue IV vancomycin Podiatry ordered tib-fib x-ray as well as an MRI of the tib-fib region and foot to rule out deep space infection Vascular surgery consulted as well Pain control as needed Last for a.m. Ordered: [facility] Hospital Care/Day Moderate 35 Minutes [id number] 2. Acute kidney injury (N17.9: Acute kidney failure, unspecified) Serum creatinine down to 1.4 FENa from yesterday was 1.8; may be intrinsic and he was taking HCTZ, lisinopril and Mobic in the outpatient setting which all have been held Ordered: [facility] Hospital Care/Day Moderate 35 Minutes [id number] Orders: Basic Metabolic Panel eGFR Extra Lav Tube Shower PLAN: 1. Will continue IV vancomycin, blood cultures no growth to date 2. Tib-fib x-rays and MRI ordered per podiatry 3. Vascular surgery consulted 4. Pain control as needed 5. Continue allopurinol, amlodipine but hold lisinopril and HCTZ 6. Continue to trend labs 7. DVT prophylaxis with SCDs and subcu enoxaparin Extracted from: Title:Podiatric surgery Author:Jhonatan Mariscal DPM Date:07/08/23 Impression and Plan Patient is to continue IV antibiotics I did order tib-fib radiographs as well as foot radiographs I also ordered an MRI of his tib-fib region and his foot. To rule out deep space infection. Does not appear to have a compartment syndrome based on history and clinical examination. I recommended elevation and compression and continue. Consultation placed for vascular surgery Dr. Brandon. Will evaluate after his diagnostic testing is complete. Extracted from: Title:Progress/SOAP Note Author:Surjit ARNOLD Cyndy sue Barbosa Date:07/07/23 68-year-old male admitted fo r cellulitis of his right leg having failed outpatient antibiotics. He has acute kidney injury as well -he does take hydrochlorothiazide and lisinopril plus Mobic. Comorbidities include hypertension, gout, BPH, nephrolithiasis and GERD 1. Cellulitis of right leg (L03.115: Cellulitis of right lower limb) Continue IV vancomycin Podiatry consult pending Check labs in a.m. Good improvement especially with lymphangitic spread Ordered: Initial Hospital Care/Day Moderate 55 Minutes [id number] 2. Acute kidney injury (N17.9: Acute kidney failure, unspecified) FENa 1.8 which may be intrinsic; patient was taking HCTZ and lisinopril which had been held and he was also taking Mobic Creatinine down to 1.6 Continue to trend Ordered: Initial Hospital Care/Day Moderate 55 Minutes [id number] Orders: acetaminophen, 650 mg = 2 tab(s), Tab, Oral, q6hr PRN Pain, Routine, Start date 07/06/23 16:49:00 EDT, 07/06/23 16:49:00 EDT Al hydroxide/Mg hydroxide/simethicone, 30 mL, Susp-Oral, Oral, q6hr PRN Indigestion, Routine, Start date 07/06/23 16:49:00 EDT allopurinol, 200 mg = 2 tab(s), Tab, Oral, Daily, Routine, Start date 07/07/23 9:00:00 EDT, 07/06/23 16:42:00 EDT amlodipine, 5 mg = 1 tab(s), Tab, Oral, Daily, Routine, Start date 07/07/23 9:00:00 EDT, 07/06/23 16:42:00 EDT heparin, 5,000 unit(s) = 1 mL, Injection, SubCutaneous, q8hrFT for 30 day(s), Stop date 08/05/23 23:59:00 EDT, Routine, Start date 07/07/23 0:00:00 EDT hydrALAZINE, 10 mg = 0.5 mL, Injection, IV Push, q6hr PRN Other (see comment), Routine, Start date 07/06/23 16:49:00 EDT, 07/06/23 16:49:00 EDT lactobacillus acidophilus and bulgaricus, 1 tab(s), Tab, Oral, Daily, Routine, Start date 07/07/23 9:00:00 EDT magnesium hydroxide, 30 mL, Susp-Oral, Oral, q6hr PRN Constipation, Routine, Start date 07/06/23 16:49:00 EDT ondansetron, 4 mg = 2 mL, Injection, IV Push, q6hr PRN Nausea, Routine, Start date 07/06/23 16:49:00 EDT, 07/06/23 16:49:00 EDT pantoprazole, 40 mg = 1 tab(s), Tab-DR, Oral, Daily, Routine, Start date 07/07/23 9:00:00 EDT, 07/06/23 16:42:00 EDT Sodium Chloride 0.9% intravenous solution 1,000 mL, 1,000 mL, IV, 100 mL/hr, for 1 time(s), Stop date 07/07/23 3:36:00 EDT, Routine, Start date 07/06/23 17:37:00 EDT, 10 hour(s), Total volume (mL): 1,000, 109.4 kg, 2.37, m2 vancomycin, PHARMACY TO DOSE, Injection, IV, As Directed, Routine, Start date 07/06/23 16:44:00 EDT vancomycin + Generic Diluent 300 mL, 1,500 mg = 300 mL, Soln-IV, IV Piggyback, q24hr, Start date 07/07/23 14:00:00 EDT, 200 mL/hr, Infuse over 90 minute(s) Basic Metabolic Panel Cardiac Diet CBC w/ Auto Diff Consult to Crackling Press Operator Creatinine Urine eGFR Notify Provider Vital Signs Notify Provider Vital Signs Sodium Level Urine Up ad Lurdes Urinalysis with Micro Vancomycin Level Peak Vancomycin Level Trough Vital Signs PLAN: 1. Continue IV vancomycin 2. Repeat lab in a.m. 3. Podiatry consult pending 4. Currently saline locked 5. Maintain allopurinol, amlodipine and continue holding lisinopril and HCTZ 6. DVT prophylaxis with SCDs and subcu heparin 7. Discharge planning Extracted from: Title:Admission H & P Author:Lamar Eddy DO Date:07/06/23 68-year-old male admitted fo r cellulitis of his right leg having failed outpatient antibiotics. He has acute kidney injury as well -he does take hydrochlorothiazide and lisinopril plus Mobic. Comorbidities include hypertension, gout, BPH, nephrolithiasis and GERD. 1. Cellulitis of right leg (L03.115: Cellulitis of right lower limb) Will continue vancomycin Podiatry consulted Check labs in a.m. 2. Acute kidney injury (N17.9: Acute kidney failure, unspecified) Will give 1 L normal saline 100 mL/hour x 1 L and then reassess in the morning As mentioned above, he is on hydrochlorothiazide, lisinopril and was taking Mobic Orders: acetaminophen, 650 mg = 2 tab(s), Tab, Oral, q6hr PRN Pain, Routine, Start date 07/06/23 16:49:00 EDT, 07/06/23 16:49:00 EDT Al hydroxide/Mg hydroxide/simethicone, 30 mL, Susp-Oral, Oral, q6hr PRN Indigestion, Routine, Start date 07/06/23 16:49:00 EDT allopurinol, 200 mg = 2 tab(s), Tab, Oral, Daily, Routine, Start date 07/07/23 9:00:00 EDT, 07/06/23 16:42:00 EDT amlodipine, 5 mg = 1 tab(s), Tab, Oral, Daily, Routine, Start date 07/07/23 9:00:00 EDT, 07/06/23 16:42:00 EDT heparin, 5,000 unit(s) = 1 mL, Injection, SubCutaneous, q8hrFT for 30 day(s), Stop date 08/05/23 23:59:00 EDT, Routine, Start date 07/07/23 0:00:00 EDT hydrALAZINE, 10 mg = 0.5 mL, Injection, IV Push, q6hr PRN Other (see comment), Routine, Start date 07/06/23 16:49:00 EDT, 07/06/23 16:49:00 EDT lactobacillus acidophilus and bulgaricus, 1 tab(s), Tab, Oral, Daily, Routine, Start date 07/07/23 9:00:00 EDT magnesium hydroxide, 30 mL, Susp-Oral, Oral, q6hr PRN Constipation, Routine, Start date 07/06/23 16:49:00 EDT ondansetron, 4 mg = 2 mL, Injection, IV Push, q6hr PRN Nausea, Routine, Start date 07/06/23 16:49:00 EDT, 07/06/23 16:49:00 EDT pantoprazole, 40 mg = 1 tab(s), Tab-DR, Oral, Daily, Routine, Start date 07/07/23 9:00:00 EDT, 07/06/23 16:42:00 EDT Sodium Chloride 0.9% intravenous solution 1,000 mL, 1,000 mL, IV, 100 mL/hr, for 1 time(s), Stop date 07/07/23 3:36:00 EDT, Routine, Start date 07/06/23 17:37:00 EDT, 10 hour(s), Total volume (mL): 1,000, 109.4 kg, 2.37, m2 vancomycin, PHARMACY TO DOSE, Injection, IV, As Directed, Routine, Start date 07/06/23 16:44:00 EDT vancomycin + Generic Diluent 300 mL, 1,500 mg = 300 mL, Soln-IV, IV Piggyback, q24hr, Start date 07/07/23 14:00:00 EDT, 200 mL/hr, Infuse over 90 minute(s) Basic Metabolic Panel Cardiac Diet CBC w/ Auto Diff Consult to Crackling Press Operator Creatinine Urine Notify Provider Vital Signs Notify Provider Vital Signs Place in Status Sodium Level Urine Up ad Lurdes Urinalysis with Micro Vancomycin Level Peak Vancomycin Level Trough Vital Signs PLAN: 1. Patient is placed on the medical service 2. Podiatry consultation 3. IV vancomycin with pharmacy to dose 4. Lab for a.m. 5. Will give 1 L normal saline 100 mL/hour then saline lock and reassess 6. I will resume his allopurinol, amlodipine but I will hold his hydrochlorothiazide and lisinopril for now and watch his BP 7. DVT prophylaxis with SCDs and subcu heparin 8. Will order urine studies Anticipate greater than 2 midnight stays for inpatient status Extracted from: Title:ED Note Author:Curt VARGAS, Franki Green te:07/06/23 1. Cellulitis of right leg ( L03.115: Cellulitis of right lower limb) Orders: Sodium Chloride 0.9% intravenous solution 1,000 mL, 1,000 mL, IV, 20 mL/hr, STAT, Start date 07/06/23 12:17:00 EDT, 50 hour(s), Total volume (mL): 1,000, 109.4 kg, 2.37, m2 vancomycin + Generic Diluent 300 mL, 1,500 mg = 300 mL, Soln-IV, IV Piggyback, Once, Stop date 07/06/23 13:29:00 EDT, STAT, Start date 07/06/23 13:29:00 EDT, 200 mL/hr, Infuse over 90 minute(s) Basic Metabolic Panel Blood Culture Charcoal Blood Culture Charcoal CBC w/ Auto Diff ED Physician consult Hospitalist for continued care eGFR Extra Blue Tube Lactic Acid Future Appointments Appointment Date:09/12/2023 03:30:00 PM Scheduled Provider:Taras BRABA MD Location:[facility] Appointment Type:URO Office Visit Diagnostic Tests Pending * Vancomycin Level Trough 07/12/23 Future Scheduled Tests Laboratory* PSA Total 11/21/22 * Basic Metabolic Panel 07/17/23 Radiology* XR Abdomen 1 View 11/21/22 [facility]05-17-2024 NoteBasic Information Admit Date/Time:07/06/2023 14:38 Chief Complaint pt reports he saw Yanira in this last week for cellulitis of RLE. Pt reports on ABX and not improving. Yanira told him to come to ED due to no improvement in infection. Chills and fevers sunday. deniesn/v. History of Present Illness This is a 68-year-old white male whose past medical history is significant for: 1. Hypertension 2. Gout 3. BPH 4. Nephrolithiasis 5. GERD Patient states that Sunday noticed that his leg was red. No trauma and no breaks in the skin. Sunday morning he woke up and he had bad chills and increased temperature although he did not take his temperature. He started to break out in a sweat after he took a shower. He contacted Dr. Mariscal and Sunday he was started on amoxicillin. He said the chills were better but he continued to have sweats. No pain with weightbearing and he said initially his leg on Sunday felt like [id number]. He said there was some blisters but he did not breakdown. He was given a Unaboot on Sunday. It was not getting any better Dr. Mariscal told him to come into the ER to be evaluated. No other complaints. In the emergency room his blood pressure is 125/80 with a pulse of 74 and a respiratory rate of 17.He is 96% on room air and he is afebrile. CBC with differential was completely within normal limitsand his BMP is remarkable for BUN of 29 and a creatinine of 1.8. Lactic acid level is 1.0. Venous duplex of his right leg showed no DVT and this was performed on July 02. 2 blood cultures were sent from the ER and he was started on vancomycin and admitted to the medical service. PAST MEDICAL HISTORY see above PAST SURGICAL HISTORY 1. Kidney stone surgery 2. 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 He quit smoking 43 years ago Social alcohol use No drug abuse history Review of Systems Constitutional: no fever, no chills, no sweats, no weakness Skin: no Jaundice, no rash, no lesions, nopetechiae ENMT: no ear pain, no sore throat, no congestion, no hoarseness Respiratory: no shortness of breath, no cough, no orthopnea, no wheezing Cardiovascular: no chest pain, no palpitations, no edema Gastrointestinal: no nausea, no vomiting, no diarrhea, no GI bleeding Genitourinary: no dysuria, no hematuria, no discharge, no pain Musculoskeletal: no back pain, no trauma Neurologic: no headache, no dizziness, no numbness, no weakness Psychiatric: no sleeping problems, no irritability, no mood swings/depression. Heme/Lymph: no bleeding tendency, no bruising tendency, no petechiae, no swollen nodes Allergy/Immunologic: no seasonal allergies, no food allergies, no recurrent infections, no impairedimmunity Additional ROS info: Except as noted in the above Review of Systems and in the History of Present Illness all other systems have been reviewed and are negative or noncontributory. Scoring Villegas Fall Risk Score: 35 (07/06/23) Physical Exam Vitals & Measurements T: 36.8 ?C(Oral) HR: 75(Peripheral) RR: 18 BP: 144/74 SpO2: 96% HT: 185 cm WT: 111.4 kg General: alert, no acute distress Skin: warm, dry; right lower extremity with erythema from the knee down and there is some lymphangitic spread lower medial thigh; warm to touch but not tender to touch and no open lesions currently Head: no trauma, normocephalic Neck: Trachea midline, no adenopathy, no tenderness Eye: normal conjunctiva, sclera clear ENMT: TM's clear, oral mucosa moist, no pharyngeal erythema or exudate Cardiovascular: regular rate and rhythm, normal peripheral perfusion Respiratory: Lungs CTA, respirations non labored Chest wall: no deformity. Gastrointestinal: soft, non distended, no tenderness, no guarding. Back: No tenderness, Normal ROM, Normal alignment. Extremities: no deformity, no trauma Neurological: oriented x 4, LOC appropriate for age, CN II-XII intact, motor strength equal & normal bilaterally, sensation equal & normal bilaterally, speech normal Psychiatric: cooperative, affect appropriate for age, normal judgement, normal psychiatric thoughts. Lab Results WBC: 7 E9/L (07/06/23 12:34:00) RBC: 4.8 E12/L (07/06/23 12:34:00) HGB: 15.6 gm/dL (07/06/23 12:34:00) Hct: 46.2 % (07/06/23 12:34:00) MCV: 95.3 fL (07/06/23 12:34:00) MCH: 32.2 pg (07/06/23 12:34:00) MCHC: 33.7 gm/dL (07/06/23 12:34:00) RDW: 13.9 % (07/06/23 12:34:00) Platelet: 189 E9/L (07/06/23 12:34:00) MPV: 8.5 fL (07/06/23 12:34:00) Neutro Auto: 70.2 % (07/06/23 12:34:00) Lymph Auto: 18.3 % (07/06/23 12:34:00) Kingfisher Auto: 8.3 % (07/06/23 12:34:00) Eos Auto: 2.8 % (07/06/23 12:34:00) Basophil Auto: 0.4 % (07/06/23 12:34:00) Neutro Ab (more content not included)...[facility] HealthComment on above:Result Comment: Electronically Signed By: Dwight Eddy DO\Date and Time Signed: 07/06/23 17:41 [id number] History of Present illness Narrative* Gerald Padilla MD - 04/02/2023 1:10 PM EST Subjective Patient ID: Jean Marie Msat is a 68 y.o. male who presents for Tinnitus (Audio 03/20/23). 03/20 audio shows severe theo HFSNHL. Pt has had HPNPT for many years. Extensive h/o noise exposure. No prior h/oeval or tx. Review of Systems All other systems reviewed and are negative. Family History Problem Relation Name Age of Onset Hypertension Mother Hypertension Father Cancer Father No Known Problems Sister No Known Problems Brother Active Ambulatory Problems Diagnosis Date Noted Asymptomatic microscopic hematuria 08/04/2022 Benign prostatic hyperplasia with urinary obstruction 08/04/2022 Essential hypertension (CMS/HCC) 08/04/2022 Gastroesophageal reflux disease without esophagitis 08/04/2022 Calculus of kidney 08/04/2022 Nephrolithiasis 08/04/2022 Other chronic pain 08/04/2022 Resolved Ambulatory Problems Diagnosis Date Noted No Resolved Ambulatory Problems Past Medical History: Diagnosis Date Gout Hypertension (CMS/HCC) Past Surgical History: Procedure Laterality Date HERNIA REPAIR 2012 IN REMOVAL OF KIDNEY STONE 2016 x3 Allergies Allergen Reactions Aspirin Hives Current Outpatient Medications on File Prior to Visit Medication Sig Dispense Refill allopurinol (Zyloprim) 100 MG tablet 1 (one) time each day at the same time. amLODIPine (Norvasc) 5 MG tablet Take 1 tablet (5 mg) by mouth in the morning. 90 tablet 3 hydroCHLOROthiazide (HYDRODiuril) 25 MG tablet Take 1 tablet (25 mg) by mouth in the morning. 90 tablet 2 lisinopril 40 MG tablet 1 (one) time each day at the same time. meloxicam (Mobic) 15 MG tablet Take 1 tablet (15 mg) by mouth in the morning. With food.. 30 tablet2 omeprazole (PriLOSEC) [address] capsule 1 (one) time each day at the same time. predniSONE (Deltasone) 10 MG tablet As directed orally - Take 6 tabs day 1 and 2, 5 tabs day 3 and 4, 4 tabs day 5 and 6, 3 tabs day 7 and 8, 2 tabs day 9 and 10, and 1 tab day 11 and 12. (Patient not taking: Reported on 04/02/2023) 42 tablet 0 No current facility-administered medications on file prior to visit. Objective Last Recorded Vitals Vitals: 04/02/23 1309 BP: 137/77 ENT Physical Exam Constitutional Appearance: patient appears well-developed and well-nourished, Head and Face Appearance: head appears normal and face appears atraumatic; Ear Ear comments: Theo ears normal Nose External Nose: nares patent bilaterally; external nose normal; Internal Nose: nasal mucosa normal; Oral Cavity/Oropharynx Lips: normal; Teeth: normal; Gums: gingiva normal; Tongue: normal; Oral mucosa: normal; Hard palate: normal; Neck Neck: neck normal; neck palpation normal; Thyroid: thyroid normal; Respiratory Inspection: breathing unlabored; normal breathing rate; Auscultation: breath sounds are clear; Cardiovascular Inspection: extremities are warm and well perfused; no peripheral edema present; Auscultation: regular rate and rhythm; Assessment/Plan Diagnoses and all orders for this visit: Bilateral tinnitus Sensorineural hearing loss (SNHL), bilateral Theo tinnitus c/w pt's SNHL. Does not need GONZALEZ. [facility] documented in this encounterSaint [facility] [id number] History of Present illness Narrative* Carlotta Morrison - 03/21/2023 2:30 PM EST Images from the original note were not included. Jean Marie Mast is a 68 y.o. male presents with chief complaint of bilateral hip pain. HPI: Dre is a 68-year-old white male referred by primary care for evaluation of bilateral hip pain. He did see primary care, had five days of prednisone given and is referred here. He states this has been going on quite a while . The left side is worse than the right. The left has been more bothersomeover the last month and a half. He has been to a chiropractor, done some stretching. 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 SUBJECTIVE: MEDICATIONS: Current Outpatient Medications Medication Instructions allopurinol (Zyloprim) 100 MG tablet Every 24 hours amLODIPine (NORVASC) 5 mg, Oral, Daily hydroCHLOROthiazide (HYDRODIURIL) 25 mg, Oral, Daily lisinopril 40 MG tablet Every 24 hours meloxicam (MOBIC) 15 mg, Oral, Daily, With food. omeprazole (PriLOSEC) [address] capsule Every 24 hours predniSONE (Deltasone) 10 MG tablet As directed orally - Take 6 tabs day 1 and 2, 5 tabs day 3 and 4, 4 tabs day 5 and 6, 3 tabs day 7 and 8, 2 tabs day 9 and 10, and 1 tab day 11 and 12. ALLERGIES: Allergies Allergen Reactions Aspirin Hives SURGICAL HISTORY: Past Surgical History: Procedure Laterality Date HERNIA REPAIR 2013 IN REMOVAL OF KIDNEY STONE 2016 x3 FAMILY HISTORY: Family History Problem Relation Name Age of Onset Hypertension Mother Hypertension Father Cancer Father No Known Problems Sister No Known Problems Brother SOCIAL HISTORY: Social History Tobacco Use Smoking status: Former Types: Cigarettes Quit date: 1989 Years since quittin.1 Passive exposure: Never Smokeless tobacco: Former Types: Chew Quit date: 1989 Tobacco comments: Last smoked: >10 years Vaping Use Vaping Use: Never used Substance Use Topics Alcohol use: Never Comment: Caffeine intake: 3-4 cups per day soda/pop, energy drinks, tea Drug use: Never Depression: Not at risk (08/04/2022) PHQ-2 PHQ-2 Score: 0 REVIEW OF SYMPTOMS: The review of systems, history and current medications list are all reviewed today. OBJECTIVE: Visit Vitals Ht 6' 1 Wt 236 lb BMI 31.14 kg/m Smoking Status Former BSA 2.35 m Physical Exam His orthopedic examination reveals a pleasant white male relatively fit. No acute distress. He does have some trochanteric tenderness on the left side, moderate, more mild on the right.Internal and external rotation of both hips is on the order of maybe 10-15 degrees and 35 degrees. No real pain associated with this, but definitely stiff. Bench test is negative. Patellar and Achilles deep tendon reflexes are 2/4 and symmetric. X-rays AP pelvis, bilateral hips total of four views with permanent images are saved to the record does show some osteoarthritis more medial pole. The right maybe a little bit worse than the left. Hedoes have femoral acetabular impingement. The left is a little bit worse than the right with both apparent cam and pincer component on the left, more cam on the right. X-rays of the lumbar spine total of two views AP and lateral with permanent images are saved to therecord does show significant degenerative disc and degenerative joint disease, most pronounced discdegeneration is at L4-5, L5-S1. No evidence of fracture or instability pattern. 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 The findings are discussed. He does have a multiple etiology of both intrinsic and extrinsic factors. This does appear to be more extrinsic and mechanical overall. We did explain this at length with him. He does get some sciatica on the right. His problem is more mechanical hip pain seemingly on the left. We did recommend supportive care for all. He is started on the office tapering dose prednisone schedule. He will taper to Meloxicam at 15 mg daily. We will couple this with some formal physical therapy from [facility]. We did discuss more focal treatment for the left hip and that can be entertained further at any time in the form of an injection. 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 This is an individual that would be at some risk for a discussion of ankylosing spondylitis. Certainly this can be looked at with serology at anypoint. He may see his primary care for this as well for further work up. We will see him back here in another month. All of his questions are otherwise answered this day. He is discharged in stable condition. The patient was seen and examined. From the time of check in, nurse triage, vital signs, x-ray, x-ray interpretation, review of systems, comprehensive history and physical exam as well as setting up treatment plan and further management took 50 minutes. Follow up letter sent to Dr. Michelle Figueroa. documented in this encounterSaint [facility] [id number] Hospital Discharge instructions Patient Education 11/21/2021 09:20:07 Kidney Stones, [id number] Kidney Stones Kidney stones are rock-like masses that form inside of the kidneys. Kidneys are organs that make pee (urine). A kidney stone may move into other parts of the urinary tract, including: The tubes that connect the kidneys to the bladder (ureters). The bladder. The tube that carries urine out of the body (urethra). Kidney stones can cause very bad pain and can block the flow of pee. The stone usually leaves your body (passes) through your pee. You may need to have a doctor take out the stone. What are the causes? Kidney stones may be caused by: A condition in which certain glands make too much parathyroid hormone (primary hyperparathyroidism). A buildup of a type of crystals in the bladder made of a chemical called uric acid. The body makes uric acid when you eat certain foods. Narrowing (stricture) of one or both of the ureters. A kidney blockage that you were born with. Past surgery on the kidney or the ureters, such as gastric bypass surgery. What increases the risk? You are more likely to develop this condition if: You have had a kidney stone in the past. You have a family history of kidney stones. You do not drink enough water. You eat a diet that is high in protein, salt (sodium), or sugar. You are overweight or very overweight (obese). What are the signs or symptoms? Symptoms of a kidney stone may include: Pain in the side of the belly, right below the ribs (flank pain). Pain usually spreads (radiates) to the groin. Needing to pee often or right away (urgently). Pain when going pee (urinating). Blood in your pee (hematuria). Feeling like you may vomit (nauseous). Vomiting. Fever and chills. How is this treated? Treatment depends on the size, location, and makeup of the kidney stones. The stones will often pass out of the body through peeing. You may need to: Drink more fluid to help pass the stone. In some cases, you may be given fluids through an IV tube put into one of your veins at the hospital. Take medicine for pain. Make changes in your diet to help keep kidney stones from coming back. Sometimes, medical procedures are needed to remove a kidney stone. This may involve: A procedure to break up kidney stones using a beam of light (laser) or shock waves. Surgery to remove the kidney stones. Follow these instructions at home: Medicines Take bxdq-hlm-wtcreib and prescription medicines only as told by your doctor. Ask your doctor if the medicine prescribed to you requires you to avoid driving or using heavy machinery. Eating and drinking Drink enough fluid to keep your pee pale yellow. You may be told to drink at least 8 10 glasses of water each day. This will help you pass the stone. If told by your doctor, change your diet. This may include: ?Limiting how much salt you eat. ?Eating more fruits and vegetables. ?Limiting how much meat, poultry, fish, and eggs you eat. Follow instructions from your doctor about eating or drinking restrictions. General instructions Collect pee samples as told by your doctor. You may need to collect a pee sample: ?24 hours after a stone comes out. ?8 12 weeks after a stone comes out, and every 6 12 months after that. Strain your pee every time you pee (urinate), for as long as told. Use the strainer that your doctor recommends. Do not throw out the stone. Keep it so that it can be tested by your doctor. Keep all follow-up visits as told by your doctor. This is important. You may need follow-up tests. How is this prevented? To prevent another kidney stone: Drink enough fluid to keep your pee pale yellow. This is the best way to prevent kidney stones. Eat healthy foods. Avoid certain foods as told by your doctor. You may be told to eat less protein. Stay at a healthy weight. Where to find more information National Kidney Foundation (NKF): www.kidney.org [employer] (UCF): www.urologyhealth.org Contact a doctor if: You have pain that gets worse or does not get better with medicine. Get help right away if: You have a fever or chills. You get very bad pain. You get new pain in your belly (abdomen). You pass out (faint). You cannot pee. Summary Kidney stones are rock-like masses that form inside of the kidneys. Kidney stones can cause very bad pain and can block the flow of pee. The stones will often pass out of the body through peeing. Drink enough fluid to keep your pee pale yellow. This information is not intended to replace advice given to you by your health care provider. Make sure you discuss any questions you have with your health care provider. Document Released: 07/24/2008 Document Revised: 06/24/2019 Document Reviewed: 06/24/2019 [employer] Patient Education 2020 [employer]. Follow Up Care 01/24/2021 08:12:17 With:Taras BARBA MD, URL Address: [facility] [place] [id number]- When:Within 18 Month(s) Comments:w/psa and kub [facility] Evaluation + Plan note Future Appointments Appointment Date:11/21/2021 08:45:00 AM Scheduled Provider:Taras BARBA MD Location:[facility] Future Appointments Appointment Date:05/21/2023 08:00:00 AM Scheduled Provider:Taras BARBA MD Location:[facility] Appointment Type:URO Office Visit Future Scheduled Tests Laboratory* PSA Total 11/21/22 Radiology* XR Abdomen 1 View 11/21/22 [facility] Evaluation + Plan note Future Appointments Appointment Date:09/12/2023 03:30:00 PM Scheduled Provider:Taras BARBA MD Location:[facility] Appointment Type:URO Office Visit Future Scheduled Tests Laboratory* PSA Total 11/21/22 Radiology* XR Abdomen 1 View [facility] Hip pain, bilateral- Primary Pain in joint, pelvic region and thigh Left hip pain Pain in joint, pelvic region and thigh Lumbar spondylosis Lumbosacral spondylosis without myelopathy Degeneration of lumbar intervertebral disc Degeneration of lumbar or lumbosacral 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 syndrome Right hip impingement syndrome documented in this encounter [facility] HealthcareEvaluation note* Diagnosis Bilateral tinnitus- Primary Sensorineural hearing loss (SNHL), bilateral documented in this encounter [facility] HealthcareEvaluation noteNo assessment information [facility] Work Phone: Hospital course Narrative No data available for this section [facility] No data available for this section [facility] No data available for this section [facility] Reason for Referral Specialty Diagnoses / Procedures Referred By Contac t Referred To Contact Physical Therapy Diagnoses Hip pain, bilateral Left hip pain Lumbar spondylosis 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 Procedures IN OFFICE/OUTPATIENT NEW HIGH MDM 60 MINUTES Cynthia Henderson, DO [address] [place] [address] Cynthia Ramirez, PT [address] [place] [address] Referral ID Status Reason Start Date Expiration Date Visits Requested Visits Authorized [id number] Authorized Consult and Treat 03/21/2023 09/17/2023 10 10 Summary Purpose Family History No Family History Records Found Advance Directives No Advanced Directives Records Found Advance Directive Response Recorded Date/ Time Advance Directives No July 24 1:47pm Chief Complaint and Reason for Visit Chief Complaint post hosp [facility] Additional Source Comments Reason for Visit (unrecogniz ed section and content) Reason Comments Pain Specialty Diagnoses / Procedures Referred By Contac t Referred To Contact Orthopaedic Surgery Diagnoses Left hip pain Michelle Figueroa MD [address] [place] [address] Cynthia Henderson DO [address] [place] [address] Referral ID Status Reason Start Date Expiration Date V isits Requested Visits Authorized [id number] Closed Specialty Services Required 03/13/2023 09/09/2023 1 1 Reason Comments Tinnitus Audio 03/20/23 Care Teams (unrecognized sec tion and content) Team Status: Active Member Role Status Dates Michelle Figueroa MD Primary Care Provider Active Team Status: Inactive Member Role Status Dates Jean Marie Mccullough MD Attending Provider Active Sta rt: July 25, 2023 End: July 25, 2023 Michelle Figueroa MD Primary Care Provider Active Start: July 25, 2023 End: July 25, 2023 Personnel Name: Mcihelle Figueroa MD Address: Address: [address] [facility] [place], [place] [address] Measurement And Sensing Technician Relationship Specialty Start Date End Date Michelle Figueroa MD [address] [place] [id number] PCP - General Family Medicine 07/05/22 Michelle Figueroa MD [address] [place] [address] PCP - ACO Reach 07/13/22 (unrecognized sect ion and content) No Status Records FoundNo Status Records FoundNo Status Records FoundNo Status Records FoundNo Status Records FoundNo Status Records FoundNo Status Records FoundNo Status Records FoundNo Status Records FoundNo Status Records FoundNo Status Records FoundNo Status Records FoundNo Status Records FoundNo Status Records FoundNo Status Records FoundNo Status Records FoundNo Status Records FoundNo Status Records FoundNo Status Records FoundNo Status Records FoundNo Status Records Found INFORMATION SOURCE (unrecogn ized section and content) DATE CREATED AUTHOR 07/09/2023 Jarquin Hunter [facility] DATE CREATED AUTHOR AUTHOR'S ORGANIZ ATION 07/10/2023 [employer] [facility] [facility] DATE CREATED AUTHOR AUTHOR'S ORGANIZ ATION 07/11/2023 [facility] DATE CREATED AUTHOR AUTHOR'S ORGANIZ ATION 07/13/2023 [facility] DATE CREATED AUTHOR AUTHOR'S ORGANIZ ATION 07/15/2023 Jarquin Hunter [facility] DATE CREATED AUTHOR AUTHOR'S ORGANIZ ATION 07/19/2023 [employer] [facility] DATE CREATED AUTHOR AUTHOR'S ORGANIZ ATION 07/28/2023 [facility] EPIC Goals (unrecognized section and content) Goals may be documented in a n alternate section FOR RECORDS PERTAINING TO PATIENTS WHO ARE OR HAVE BEEN ENROLLED IN A CHEMICAL DEPENDENCY/SUBSTANCEABUSE PROGRAM, SOME INFORMATION MAY BE OMITTED. This clinical summary was aggregated from multiple sources. Caution should be exercised in using it in the provision of clinical care. This summary normalizes information from multiple sources, and as a consequence, information in this document may materially change the coding, format and clinical context of patient data. In addition, data may be omitted in some cases. CLINICAL DECISIONS SHOULD BE BASED ON THE PRIMARY CLINICAL RECORDS. [facility] [employer] [facility]. provides no warranty or guarantee of the accuracy or completeness of information in this document.
[2023-08-04 07:50] LABS: Estimated GFR (African America >60 (>=60); Estimated GFR (Non-African Ame 51 (>=60)
== END 2023-08-04 07:32 | disposition home or self-care (01) ==
PROVIDERS: PCP Podiatrist Foot & Ankle Surgery; Visit Provider Radiology Diagnostic Radiology
DX: I89.0 Lymphedema, not elsewhere classified (principal); N20.0 Calculus of kidney; K40.90 Unilateral inguinal hernia, without obstruction or gangrene, not specified as recurrent
CPT/HCPCS: 36415; 74178; 82565; Q9967

== ENCOUNTER 2023-08-17 07:38 | Outpatient (OUT) | payer MEDICARE, OTHER, SELFPAY ==
--- NOTE | 2023-08-17 07:52 | VEIN_ITS ---
[address] [address] Patient Name: JEAN MARIE MAST MRN: [id number] date: 1955 Sex: M Assigned Patient Location: Current Patient Location: Accession/Order Number: [id number] Exam Date: 08/17/2023 08:03 Report Date: 08/17/2023 10:20 At the request of: CYNTHIA BOWMAN Procedure: VC Endovenous Ablation 1VeinRT EXAMINATION: VC Endovenous Ablation 1Vein, right great saphenous vein HISTORY: I83.813 Bilateral painful varicose veins COMPARISON: No relevant comparison available. TECHNIQUE: The risks and benefits of the procedure had been previously discussed, and were rediscussed at length. Informed written consent was obtained. Tamy Quintanilla and Debra Quinones assisted. Time out procedure was performed. The right lower extremity was prepared and draped in the usual sterile fashion to allow knee flexion in the sterile field. Duplex ultrasound probe was draped in a sterile cover, sterile transmission gel was used. Venous mapping was performed with the areas of dilation and large tributaries marked. The total length was 73 cm from the entry 4 cm above the medial malleolus to 3 cm below the saphenofemoral junction. The diameter of the greater saphenous vein ranged from 5-8 mm. A 30 gauge needle and 1% buffered lidocaine was used to anesthetize the entry site. A 4 mm incision was made with a scalpel and the saphenous vein was entered percutaneously under direct ultrasound guidance with a micropuncture set, a single stick was successful in gaining access. A micro-guide wire was inserted and the needle removed. A micro-set including a dilator was inserted over the microwire and the needle and dilator were removed. A 0.018 guide wire was inserted through the micro-set and threaded through the saphenous vein to the saphenofemoral junction. The dilator was removed and an introducer sheath was inserted over the wire until the end of the sheath entered the saphenofemoral junction. The dilator and wire were removed and the 600 micron fiber was introduced and placed and positioned so that it extended beyond the sheath and was 3 cm peripheral to the saphenofemoral femoral junction. Final position of the fiber was determined by ultrasound guidance and duplex imaging. Tumescent anesthetic was delivered by ultrasound guidance. 350 cc of fluid was delivered along the entire course of the saphenous vein. The solution consisted of 1000 cc of normal saline with 40 mL of 1% lidocaine and 20 mL of sodium bicarbonate. A final positioning check was made. The energy source was turned on by means of the foot pedal and the fiber and sheath were withdrawn. The total number of Joules delivered was 3518. The laser was active for 440seconds under continuous pulse, average laser use of 8 J. Laser start time at 8:44 AM 08/17/2023 . Laser stop time at 8:56 AM 08/17/2023 . A duplex ultrasound revealed compressibility and flow at the saphenofemoral junction immediately after the procedure. Hemostasis at the access site was achieved. The skin incision of the saphenous vein was closed with a 4 x 4. A compression stocking was applied. Postop instructions were given. A follow up appointment was recommended and scheduled. The patient tolerated the procedure well and was discharged in good condition . VEIN/VC Endovenous Ablation 1VeinRT IMPRESSION: Technically successful endovenous laser ablation right great saphenous vein Electronically authenticated by: CYNTHIA BOWMAN Date: 08/17/2023 10:20
--- OUTSIDE RECORDS SUMMARY | 2023-08-17 08:11 | XMS_ITS | CCD ---
Author Organization [facility] Care Team Providers Care Tool Chaser Name Role Phone NONE, XXXX Primary Care Physician Unavailab trena Figueroa MD, Michelle Barlow Primary Care Provider Michelle Figueroa MD Unavailable [phone] Michelle Figueroa Primary Care Physician Jhonatan Mariscal Admitting Unavailable Dolce, Jhonatan Richardson Attending Unavailable Yanira, Jhonatan Richardson Referring Unavailable Arnel Modi Attending Unavailable Taras BARBA Attending Unavailable Courtney BENOIT Attending Unavailable DolJhonatan zimmerman Consulting Unavailable Dwight Eddy Admitting Unavailable Elvira URENA Attending Unavailable Dolce, JULIETH Richardson Consulting Unavailable Dolce, Jhonatan Richardson Consulting Unavailable Dolce, Jhonatan Richardson Consulting Unavailable Dolce, Jhonatan Richardson Consulting Unavailable Dolce, Jhonatan Richardson Consulting Unavailable Dolce, Jhonatan Richardson Consulting Unavailable Dolce, Jhonatan Richardson Consulting Unavailable Dolce, Jhonatan Dylan Consulting Unavailable Dolce, Jhonatan Dylan Consulting Unavailable Dolce, Jhonatan D Consulting Unavailable Blank, Jean Marie S Consulting [...] Referring Unavailable DOLCE, JHONATAN Richardson Attending Unavailable GUZIKLIZBETH Attending Unavailable POCOS, CYNTHIA Parrish Referring Unavailable MOREIRACHRIS Attending Unavailable POCOS, CYNTHIA Parrish Referring Unavailable POCOS, CYNTHIA Parrish Attending Unavailable DOLCE, JHONATAN Richardson Attending Unavailable MOREIRACHRIS Attending Unavailable POCOS, CYNTHIA Parrish Referring Unavailable GUZIK, LIZBETH Attending Unavailable POCOS, CYNTHIA Parrish Referring Unavailable PLEASNICK, MICHELE Parrish Attending Unavailab le POCOS, CYNTHIA Parrish Referring Unavailable GUZIKLIZBETH Attending Unavailable POCOS, CYNTHIA Parrish Referring Unavailable PLEASNICK, MICHELE Parrish Attending Unavailab le POCOS, CYNTHIA Parrish Referring Unavailable PLEASNICK, MICHELE Parrish Attending Unavailab le POCOS, CYNTHIA Parrish Referring Unavailable PLEASNICK, MICHELE Parrish Attending Unavailab le POCOS, CYNTHIA Parrish Referring Unavailable DOLCE, JHONATAN Richardson Attending Unavailable DOLCE, JHONATAN Richardson Attending Unavailable DOLCE, JHONATAN Richardson Attending Unavailable FIGUEROAMICHELLE Attending Unavailable DOLCE, JHONATAN Richardson Attending Unavailable DOLCE, JHONATAN Richardson Attending Unavailable DOLCE, JHONATAN Richardson Attending Unavailable Allergies Allergy Classification Reported Allergen(s) Allergy Type Date of Onset Reaction(s) Facility (7 sources) Aspirin; Translations: [aspirin] Drug Allergy Unknown (qualifier value) [facility] (7 sources) Aluminum aspirin Drug Allergy 3 [facility] Medications Current Medications Medication Drug Class(es) Dates Sig (Normalized) Sig (Original) acetaminophen 325 mg oral tablet (2 sources) Start: 07-10-2023 take 2 tablets by mouth every six hours as needed for pain acetaminophen 325 mg Tab 650 mg = 2 tab(s), Oral, q6hr, PRN Pain, Refills(s) 0 Start Date: 07/10/23 Status: Ordered Acidophilus Extra Strength oral capsule (2 sources) Start: 07-06-2023 take 1 capsule by mouth once daily Acidophilus Extra Strength oral capsule 1 cap(s), Oral, Daily, Refill(s) 0 Start Date: 07/06/23 Status: Ordered allopurinol 200 mg oral tablet (14 sources) Xanthine Oxidase Inhibitor Start: 07-25-2023 take 200 mg by mouth once daily Allopurinol Active 200 MG PO Daily July 25, 2023 12:00am Start: 11-26-2019 take 2 tablets by mo [facility] once daily allopurinol 100 mg Tab 200 mg = 2 tab(s), Oral, Daily, Refills(s) 0 Start Date: 11/26/19 Status: Ordered allopurinol (Zyl oprim) 100 MG tablet 1 (one) time each day at the same time. 0 Active amLODIPine 5 mg oral tablet (11 sources) Dihydropyridine Calcium Channel Andres Start: 02-09-2023 [...] 90 tablet 2 07/19/2022 Active Lactobacillus acidophilus (2 sources) Start: 07-25-2023 take 1 tablet by mouth once daily Lactobacillus Acidophilus (Acidophilus) tablet,chewable Active 1 TAB PO Daily July 25, 2023 12:00am linezolid 600 mg oral tablet (1 source) Oxazolidinone Antibacterial Start: 07-10-2023 End: 07-24-2023 take 1 tablet by mouth every twelve hours Zyvox 600 mg Tab 600 mg = 1 tab(s), Oral, q12hr, X 14 day(s), # 28 tab(s), Refills(s) 0, Pharmacy: [facility], 185.4, cm, 07/06/23 12:13:00 EDT, Height/Length Dosing, 109.4, kg, 07/06/23 12:13:00 EDT, Weight Dosing Start Date: 07/10/23 Stop Date: 07/24/23 Status: Ordered lisinopril 40 mg oral tablet (14 sources) Angiotensin Converting Enzyme Inhibitor Start: 07-06-2023 take 40 mg by mouth once daily Lisinopril Active 40 MG PO Daily July 25, 2023 12:00am Start: 11-26-2019 take 2 tablets by [facility] once daily lisinopril 20 mg Tab 40 [...] omeprazole 20 mg delayed release oral capsule (14 sources) Proton Pump Inhibitor Start: 07-06-2023 take 20 mg by mouth once daily Omeprazole Active 20 MG PO Daily July 25, 2023 12:00am Start: 11-26-2019 Prilosec Refil ls(s) 0 Start [...] completed) triamcinolone acetonide 5 mg/ml topical cream (2 sources) Corticosteroid Start: 07-25-2023 Triamcinolone Acetonide Active 1 APPLIC TOPICAL Twice daily July 25, 2023 12:00am Problems Active Problems Problem Classification Problem Date Documented Date Episodic/Chronic Acute and unspecified renal failure (1 source) Acute renal failure syndrome; Translations: [Acute kidney failure, unspecified] Onset: 07-06-2023 Episodic Calculus of urinary tract (20 sources) Kidney stone; Translations: [Calculus of kidney] Onset: 11-21-2021 10-04-2018 Episodic Esophageal disorders (7 sources) Gastroesophageal reflux disease without esophagitis; Translations: [Gastro-esophageal reflux disease without esophagitis] Onset: 08-04-2022 08-04-2022 Chronic Essential hypertension (13 sources) Hypertensive disorder; Translations: [Essential hypertension] Onset: 08-04-2022 09-05-2009 Chronic Gout and other crystal arthropathies (5 sources) Gout 08-01-2015 Chronic Hyperplasia of prostate (14 sources) Benign prostatic hypertrophy with outflow obstruction; [...] 07-09-2023 Chronic Skin and subcutaneous tissue infections (4 sources) Cellulitis of lower limb; Translations: [Cellulitis of right lower limb] Onset: 07-06-2023 Episodic Spondylosis; intervertebral disc disorders; other back problems (4 sources) Lumbar spondylosis; Translations: [Spondylosis without myelopathy or radiculopathy, lumbar region] 03-21-2023 Chronic Unclassified (5 sources) Asymptomatic microscopic hematuria 11-26-2019 Past or Other Problems Problem Classification Problem Date Documented Da te Episodic/Chronic Genitourinary symptoms and ill-defined conditions (8 sources) Microscopic hematuria; Translations: [Asymptomatic microscopic hematuria] Onset: 11-21-2021 Episodic Results Test Name Value Interpretation Reference Range Facility Referrals Officeon 4 Referrals Office [id number]#1.[address] TIFF [address] [facility] General Message Officeon General Message Office --- --- --- --- - -- --- --- --- --- From: Archie Hilton To: JEAN MARIE MAST SR Sent: 07/11/23 02:31:06 AM EDT Subject: Discharge Summary Ready to View A summary regarding your recent visit is available in the Documents section of your health record. Normal [facility] Consultation Noteon 07-10-19 Consultation Note Patient: JEAN [...] Problems Asymptomatic microscopic hematuria / SNOMED CT 5675196770 / Confirmed BPH with urinary obstruction / SNOMED CT 8807474442 / Confirmed kidney stones / SNOMED CT 628706337 / Confirmed Histories Past Medical History: Active kidney stones (627845225) Resolved HTN - Hypertension (3753106779): Resolved. Gout (680552259): Resolved. Family History: Kidney stone Mother Hypertension Mother Diabetes mellitus type 2 Father Procedure history: Cysto, left ureteral stent removal, left RGP, left ureteronephroscopy with Holmium laser ablation, multiple basket extraction of stone,fragments, replacement of JJ ureteral stent under fluoroscopic guidance. on 09/08/2015 at 60 Years. Cystoscopy ([id number]) on 08/04/2015 at 60 Years. Comments: 08/04/2015 17:56 EDT - Maurice ALMAGUER, Marilyn Left Stent Insertion Abdominal hernia (411458013). Physical Examination Vital Signs 07/10/2023 12:01 EDT Heart Rate Monitored 79 bpm 07/10/2023 12:00 EDT Temperature Axillary 36.3 DegC 07/10/2023 12:00 EDT Systolic Blood Pressure 142 mmHg HI Diastolic Blood Pressure 86 mmHg 07/10/2023 7:50 EDT Temperature Axillary 36.8 DegC HI 07/09/2023 19:21 EDT Temperature Axillary 36.7 DegC 07/09/2023 15:10 EDT Temperature Axillary 36.8 DegC UT 07/09/2023 11:55 EDT Temperature Axillary 36.6 DegC [...] or not further antibiotics are needed.. Normal [facility] Comment on above: Result Comment: Elec tronically Signed By: Jean Marie Mccullough M.D\.br\Date and Time Signed: 07/10/23 14:43 EDT Discharge Instructionson Discharge Instructions [id number]#1.[address]FF [address] [facility] Discharge Note-Nursingon Discharge Note-Nursing JEAN MARIE MAST SR, DOB:1955 Visit Date:07/06/2023 Inpatient Discharge Instructions Your Care Team Admitting Physician - Dwight Eddy DO Consulting Physician - Jean Marie Mccullough M.D, DPM, Jhonatan Brandon MD, [facility]. Reason for Your Visit pt reports he [...] 40 mg Tab) omeprazole (omeprazole 20 mg Cap-) [Image Removed: STOP]Stop taking these medications hydrochlorothiazide [...] Diagnostic Test Results Wound culture Pharmacy Information [facility] Previously Scheduled Follow-Up Appointments Sunday 3:30 PM EDT With: JAMESON SUH, Taras Duncan Where: [facility] Inpatient Clinical Summaryon 07-10-2023 Inpatient Clinical Summary [address] [id number] Clinical Summary Person Information: Name: JEAN MARIE MAST SR Age: 68 Years : 1955 Sex: Male PCP: Michelle Figueroa MD Marital Status: Race: White Ethnicity: Non- or Language: Nigerien Visit Id: Visit Reason: Cellulitis - Leg; Lower leg pain-swelling; SENT BY DR MARISCAL, LEG PAIN Speciality: Acuity: Enc Type: Inpatient Med Service: Medical Arrival: 07/06/2023 12:00:42 Discharge: Dispo Type: Admitted as IP to this [facility] Address: [address] [place] [address] Provider Notes: Diagnosis: 1:Cellulitis of right leg; [...] Attending Physician: Dwight Eddy DO Consulting Physician: Dixie Brandon MD; Jhonatan Mariscal DPM; Jean Marie Mccullough M.D Referring Physician: Follow up: With: Address: When: Dixie Brandon [address] [place] [address] Business (1) Within 1 to 2 weeks Comments: Call for followup appointment With: Address: When: Jean Marie Mccullough [address] [place] [address] Business (1) 07/23/2023 1:45 PM With: Address: When: Michelle Figueroa [address] [place] [address] Business (1) 07/17/2023 10:00 AM With: Address: When: Jhonatan [facility]ULLER [facility], [address] [place] [address] [address], [place], [place] [id number] 07/11/2023 8:20 AM Type Location Start [facility] Office Visit [facility] 09/12/2023 3:30 PM 09/12/2023 3:45 PM Confirmed Patient Education Information: Cellulitis, Adult, Boiq-ir-Syhx Normal [facility] Inpatient Patient Summaryon 07-10-2023 Inpatient Patient Summary [address] [id number] Patient Discharge Instructions PERSON INFORMATION Name: JEAN [...] Follow up: With: Address: When: Dixie Brandon [address] [place] [address] Business (1) Within 1 to 2 weeks Comments: Call for followup appointment With: Address: When: Jean Marie Mccullough [address] [place] [address] [place] [address] Business (1) 07/23/2023 1:45 PM With: Address: When: Michelle Figueroa [address] [place] [address] Business (1) 07/17/2023 10:00 AM With: Address: When: Jhonatan MULLER - [facility], [facility], [address], [place] [address] 07/11/2023 8:20 AM In the event that this physician does not participate in your insurance network, please consult with your insurance company to find a nearby participating provider. Type Location Start [place] [place] [facility] Office Visit [facility] [place] 09/12/2023 3:30 PM 09/12/2023 3:45 PM Confirmed Comment: PRO Acevedo SR, MICHAEL, have received the attached patient education materials/instructions and have verbalized understanding: Patient Signature Date Clinican/Nurse Signature _ Date HERE ARE THE MEDICATION CHANGES THAT OCCURRED DURING YOUR HOSPITAL STAY New Medications [facility] 1985, [address] [place], [place] [id number], [phone] linezolid (Zyvox 600 mg Tab) 1 Tablets [...] Capsules By Mouth every day. Pharmacy Information: [facility] Comment: PATIENT EDUCATION INFORMATION Instructions: Cellulitis, Adult Cellulitis is a skin infection. The infected area is often warm, red, swollen, and sore. It occurs most often in the arms and lower legs. It is very import (more content not included)... [facility] Interdisciplinary Note - Justin e Manageron 07-10-2023 Interdisciplinary Note - First Line Supervisor Pt is asleep in bed, no family [...] of plan for oral antibiotic Linzolid at DC, and plan to DC home today. Pt and are agreeable to plan, and declines any further concerns or needs. Per Dr. Mccullough , Linzolid will need to be check for availability and check to see if need prior auth. CRM will check and update pt once known. Nursing updated. CRM returned call to pt room, updated on Linzolid cost checked at pt preferred [facility], with his insurance was over $400, but with good rx will be down to $51.50 and they have in stock currently. Pt updated on cost and pt is ok with cost. Nursing updated on DC plan [facility] Comment on above: Result Comment: Elec tronically Signed By: Chasidy ALMAGUER, Alaina\.joelle\Date and Time Signed: 07/10/23 15:15 EDT Monitor Recordon 07-10-2023 Monitor Record [id number]#1.00 TIFF [facility] Monitor Record [id number]#1.00 TIFF [facility] Progress Note-Physicianon Progress Note-Physician Assessment/Plan 68-year-old male [...] with IV Invanz and vancomycin. Seen by inpatient services rn and had a bedside incision and drainage of blister/bullae. Status post wound dressing. MRI does not show any deep tissue abscess of bone involvement/osteomyelit is. Infectious disease consult pending. Vascular surgery consult?can be done as outpatient. Ordered: [facility] Hospital Care/Day Moderate 35 Minutes 26142 2. Wound of right ankle (S91.001A: Unspecified open wound, right ankle, initial encounter) Continue wound dressings. Wound cultures so far not isolating any organisms. Ordered: [facility] Hospital Care/Day Moderate 35 Minutes 58194 Wound Culture 3. Acute kidney injury (N17.9: Acute kidney failure, unspecified) Acute kidney injury?secondary to ATN from above infection, diuretics and lisinopril. Improved. Lisinopril and hydrochlorothiazide suspended. Treated with IV fluid. Ordered: [facility] Hospital Care/Day Moderate 35 Minutes 73354 4. Obese (E66.9: Obesity, unspecified) Recommend therapeutic lifestyle modification changes. Ordered: [facility] Hospital Care/Day Moderate 35 Minutes 10634 5. HTN (hypertension) (I10: Essential (primary) hypertension) [...] made to ensure accuracy. However inadvertent computerized building construction superintendent errors may be present. Elvira Urena. Hospitalist. [...] stones Histori (more content not included)... Normal [facility] Comment on above: Result Comment: Elec tronically Signed By: AYANNA SUH, Elvira\.br\Date and Time Signed: 07/10/23 12:09 EDT BMPon 07-09-2023 Anion gap [Moles/Vol] 8 mmol/L Normal 6-16 [facility] Comment on above: Performed By: #### 2 [id number] #### [facility] [address] [place] [address] Calcium [Mass/Vol] 8.2 mg/dL Low 8.9-11.[address] [facility] Comment on above: Performed By: #### 2 [id number] #### [facility] [address] [place] [address] Chloride [Moles/Vol] 108 mmol/L Normal 101-111 [facility] Comment on above: Performed By: #### 2 [id number] #### [facility] [address] [place] [address] CO2 [Moles/Vol] 27 mmol/L Normal 21-[address] [facility] Comment on above: Performed By: #### 2 [id number] #### [facility] [address] [place] [address] Creatinine [Mass/Vol] 1.4 mg/dL High 0.5-1.3 [facility] Comment on above: Performed By: #### 2 [id number] #### [facility] [address] [place] [address] Glucose [Mass/Vol] 109 mg/dL Normal 55-[address] [facility] Comment on above: Performed By: #### 2 [id number] #### [facility] [address] [place] [address] Potassium [Moles/Vol] 3.8 mmol/L Normal 3.5-5.3 [facility] Comment on above: Performed By: #### 2 [id number] #### [facility] [address] [place] [address] Sodium [Moles/Vol] 139 mmol/L Normal 135-[address] [facility] Comment on above: Performed By: #### 2 [id number] #### [facility] [address] [place] [address] Urea nitrogen [Mass/Vol] 16 mg/dL Normal 5-[address] [facility] Comment on above: Performed By: #### 2 [id number] #### [facility] [address] [place] [address] Urea nitrogen/Creatinine [Mass ratio] 11 No Units Normal 10-[address] [facility] Comment on above: Performed By: #### 2 [id number] #### [facility] [address] [place] [address] CHEMISTRYOrdered By: SYSTEM SYSTEM on 07-09-2023 Vanco Tr 9 microgram/mL Low 10 - 20 mcg/mL Remisol Chem Anion gap [Moles/Vol] 8 mmol/L Normal 6 [...] mg/mg Normal 10 - 20 Remisol Chem Interdisciplinary Note - Justin e Manageron 07-09-2023 Interdisciplinary Note - First Line Supervisor Pt is out of room for MRI [...] information reviewed. CRM following for needs. Normal [facility] Comment on above: Result Comment: Elec tronically [...] Vueway Contrast amount in ml's: [address] [facility] MRI Tibia/Fibula w/ + w/o Co ntrast [...] osteomyelitis, or marrow replacing process. Joint: Large qehyo-vk-zjgy imaging of the knee with degenerative changes with subchondral cystic change, probable tearing of the medial lateral meniscus, probable tearing of ACL, but overall not well evaluated on the large eowel-iz-lhud. Muscle: Mild diffuse fatty infiltration of the [...] tendons grossly intact within limits of large revsk-qh-rnrs. Small amount of increased fluid at the [...] Vueway Contrast amount in ml's: [address] [facility] Message from Medicareon 06-20 Message from Medicare [id number]#1.00T IFF Normal [facility] Message from Medicare [id number]#1.00T IFF Normal [facility] Monitor Recordon 07-09-2023 Monitor Record [id number]#1.[address] TIFF [address] [facility] Monitor Record [id number]#1.00 TIFF [address] [facility] Monitor Record [id number]#1.00 TIFF [address] [facility] Monitor Record [id number]#1.00 TIFF [address] [facility] No Panel InformationOrdered By: Maty Felix on 07-09-2023 GS No organisms seen. [facility] Wound Culture Scant growth of Staphylococcus species coagulase negative [facility] Progress Note - Pharmacyon 0 07-09-2023 [...] questions, please contact the pharmacy at extension [phone]. Age: 68 Years Allergies: aspirin Weight: Last [...] Vanco Pk: 27 mcg/mL (07/08/23 17:11:00) Normal [facility] Progress Note-Physicianon Progress Note-Physician Patient: JEAN MARIE MAST SR [...] Problems Asymptomatic microscopic hematuria / SNOMED CT 6924346355 / Confirmed BPH with urinary obstruction / SNOMED CT 7227828594 / Confirmed kidney stones / SNOMED CT 896628524 / Confirmed, Active Problems (3) Asymptomatic microscopic [...] Right tibia (more content not included)... Normal [facility] Comment on above: Result Comment: Elec tronically Signed By: Jhonatan Mariscal DPM.joelle\Date and Time Signed: 07/09/23 17:30 EDT Progress Note-Physician Assessment/Plan 68-year-old male with history [...] Infuse over 30 minute(s), 07/09/23 12:12:00 EDT [facility] Hospital Care/Day Moderate 35 Minutes 36232 2. Wound of right ankle (S91.001A: Unspecified open wound, right ankle, initial encounter) Present during this admission. Wound culture. MRI of the foot pending. Ordered: ertapenem + Sodium Chloride 0.9% intravenous solution 50 mL, 500 mg = 0.5 EA, IV Piggyback, Daily, Routine, Start date 07/10/23 9:00:00 EDT, 100 mL/hr, Infuse over 30 minute(s), 07/09/23 12:12:00 EDT [facility] Hospital Care/Day Moderate 35 Minutes 89665 Wound Culture 3. Acute kidney injury (N17.9: Acute kidney failure, unspecified) Acute kidney injury?secondary to ATN from above infection, diuretic and lisinopril. Improved. Avoid nephrotoxic drugs. Lisinopril and hydrochlorothiazide suspended. Treated with IV fluid. Ordered: [facility] Hospital Care/Day Moderate 35 Minutes 49711 4. Obese (E66.9: Obesity, unspecified) Recommend therapeutic lifestyle modification changes. Ordered: [facility] Hospital Care/Day Moderate 35 Minutes 08759 5. HTN (hypertension) (I10: Essential (primary) hypertension) [...] made to ensure accuracy. However inadvertent computerized building construction superintendent errors may be present. Elvira Urena. Hospitalist. [...] High (05 (more content not included)... Normal [facility] Comment on above: Result Comment: Elec tronically Signed By: AYANNA SUH, Elvira\.br\Date and Time Signed: 07/09/23 12:19 EDT RAD - MRI Screening Formon 0 07-09-2023 RAD - MRI Screening Form [id number]#1.0 0TIFF Normal [facility] Vanco Troughon 07-09-2023 Vanco Tr 9 microgram/mL Low 10-[address] [facility] Comment on above: Performed By: #### 2 [id number] ####[facility] [address] [place] [address] eGFRon 07-09-2023 eGFR 55 mL/min/1.73 m2 Low >=[address] [facility] Comment on above: Order Comment: Order added by Discern Expert. Performed By: #### 1 [id number] #### [facility] [address] [place] [address] BMPon 07-08-2023 Anion gap [Moles/Vol] 10 mmol/L Normal 6-16 [facility] Comment on above: Performed By: #### 2 [id number] #### [facility] [address] [place] [address] Calcium [Mass/Vol] 8.2 mg/dL Low 8.9-11.[address] [facility] Comment on above: Performed By: #### 2 [id number] #### [facility] [address] [place] [address] Chloride [Moles/Vol] 107 mmol/L Normal 101-111 [facility] Comment on above: Performed By: #### 2 [id number] #### [facility] [address] [place] [address] CO2 [Moles/Vol] 25 mmol/L Normal 21-[address] [facility] Comment on above: Performed By: #### 2 [id number] #### [facility] [address] [place] [address] Creatinine [Mass/Vol] 1.4 mg/dL High 0.5-1.3 [facility] Comment on above: Performed By: #### 2 [id number] #### [facility] [address] [place] [address] Glucose [Mass/Vol] 110 mg/dL Normal 55-[address] [facility] Comment on above: Performed By: #### 2 138633 #### [facility] [address] [place] [address] Potassium [Moles/Vol] 3.9 mmol/L Normal 3.5-5.3 [facility] Comment on above: Performed By: #### 2 960604 #### [facility] [address] [place] [address] Sodium [Moles/Vol] 138 mmol/L Normal 135-[address] [facility] Comment on above: Performed By: #### 2 [id number] #### [facility] [address] [place] [address] Urea nitrogen [Mass/Vol] 21 mg/dL Normal 5-[address] [facility] Comment on above: Performed By: #### 2 094610 #### [facility] [address] [place] [address] Urea nitrogen/Creatinine [Mass ratio] 15 No Units Normal 10-[address] [facility] Comment on above: Performed By: #### 2 [id number] #### [facility] [address] [place] [address] CHEMISTRYOrdered By: SYSTEM SYSTEM on 07-08-2023 Vanco Pk 27 microgram/mL Normal 20 - 40 mcg/mL Remisol Chem Anion gap [Moles/Vol] 10 mmol/L Normal 6 [...] mg/mg Normal 10 - 20 Remisol Chem Consultation Noteon 07-08-19 Consultation Note [...] Problems Asymptomatic microscopic hematuria / SNOMED CT 3893446455 / Confirmed BPH with urinary obstruction / SNOMED CT 0780505871 / Confirmed kidney stones / SNOMED CT 138275395 / Confirmed, Active Problems (3) Asymptomatic microscopic hematuria BPH with urinary obstruction kidney stones Objective Measurements from flowsheet : Measurements 07/08/2023 6:00 EDT Weight Measured 108.6 kg Vital Signs (last 24 hrs) Last Charted Temp Axillary 36.7 DegC (JULY 07:25) Heart Rate Monitored 81 bpm (JULY 07:26) SBP H 146 mmHg (JULY 07:) DBP 79 mmHg (JULY 07:) Weight 108.6 kg (JULY 07 06:00) General: Alert and oriented. Cardiovascular: Good pulses [...] his tib-fib (more content not included)... Normal [facility] Comment on above: Result Comment: Elec tronically Signed By: Yanira CLANCY, Jhonatan Richardson\.br\Date and Time Signed: 07/08/23 09:52 EDT Monitor Recordon 07-08-2023 Monitor Record [id number]#1.00 TIFF [address] [facility] Progress Note-Physicianon Progress Note-Physician Subjective Day 3 [...] control as needed Last for a.m. Ordered: [facility] Hospital Care/Day Moderate 35 Minutes 56950 2. Acute kidney injury (N17.9: Acute kidney failure, unspecified) Serum creatinine down to 1.4 FENa from yesterday was 1.8; may be intrinsic and he was taking HCTZ, lisinopril and Mobic in the outpatient setting which all have been held Ordered: [facility] Hospital Care/Day Moderate 35 Minutes 13350 Orders: Basic Metabolic Panel eGFR Extra Lav [...] mg= 1 (more content not included)... Normal [facility] Comment on above: Result Comment: Elec tronically Signed By: Dwight Eddy DObr\Date and Time Signed: 07/08/23 12:44 EDT Vanco Peakon 07-08-2023 Vanco Pk 27 microgram/mL Normal 20-[address] [facility] Comment on above: Order Comment: pleas e draw one hour after vancomycin infusion is complete Performed By: #### 2 [id number] #### [facility] [address] [place] [address] XR Foot 3+ Views Righton XR Foot [...] mGy = . DAP = . Normal [facility] XR Tib/Fib Right 2 Viewon XR Tib/Fib [...] mGy = . DAP = . Normal [facility] eGFRon 07-08-2023 eGFR 55 mL/min/1.73 m2 Low >=[address] [facility] Comment on above: Order Comment: Order added by Discern Expert. Performed By: #### 1 [id number] #### [facility] [address] [place] [address] BMPon 07-07-2023 Anion gap [Moles/Vol] 10 mmol/L Normal 6-16 [facility] Comment on above: Performed By: #### 2 [id number] #### [facility] [address] [place] [address] Calcium [Mass/Vol] 8.2 mg/dL Low 8.9-11.[address] [facility] Comment on above: Performed By: #### 2 451325 #### [facility] [address] [place] [address] Chloride [Moles/Vol] 106 mmol/L Normal 101-111 [facility] Comment on above: Performed By: #### 2 210523 #### [facility] [address] [place] [address] CO2 [Moles/Vol] 25 mmol/L Normal 21-[address] [facility] Comment on above: Performed By: #### 2 737030 #### [facility] [address] [place] [address] Creatinine [Mass/Vol] 1.6 mg/dL High 0.5-1.3 [facility] Comment on above: Performed By: #### 2 869807 #### [facility] [address] [place] [address] Glucose [Mass/Vol] 103 mg/dL Normal 55-[address] [facility] Comment on above: Performed By: #### 2 516888 #### [facility] [address] [place] [address] Potassium [Moles/Vol] 3.7 mmol/L Normal 3.5-5.3 [facility] Comment on above: Performed By: #### 2 119240 #### [facility] [address] [place] [address] Sodium [Moles/Vol] 137 mmol/L Normal 135-[address] [facility] Comment on above: Performed By: #### 2 280363 #### [facility] [address] [place] [address] Urea nitrogen [Mass/Vol] 27 mg/dL High 5-[address] [facility] Comment on above: Performed By: #### 2 617122 #### [facility] [address] [place] [address] Urea nitrogen/Creatinine [Mass ratio] 17 No Units Normal 10-[address] [facility] Comment on above: Performed By: #### 2 675325 #### [facility] [address] [place] [address] CBC w/ Auto Diffon 4 Basophils/100 WBC (Bld) 0.5 % Normal 0.0-2.[address] [facility] Comment on above: Performed By: #### 2 158184 #### [facility] [address] [place] [address] Basophils/Leukocytes Auto (Bld) [Pure # fraction] 0.0 E9/L Normal 0.0-0.[address] [facility] Comment on above: Performed By: #### 2 712932 #### [facility] [address] [place] [address] Eosinophils (Bld) [#/Vol] 0.2 E9/L Normal 0.0-0.[address] [facility] Comment on above: Performed By: #### 2 310317 #### [facility] [address] [place] [address] Eosinophils/100 WBC (Bld) 3.0 % Normal 0.0-8.[address] [facility] Comment on above: Performed By: #### 2 699813 #### [facility] [address] [place] [address] Erythrocyte distribution width (RBC) [Ratio] 13.6 % Normal 10.9-14.[address] [facility] Comment on above: Performed By: #### 2 585403 #### [facility] [address] [place] [address] Hematocrit (Bld) [Volume fraction] 40.6 % Normal 37.7-49.[address] [facility] Comment on above: Performed By: #### 2 411953 #### [facility] [address] [place] [address] Hemoglobin (Bld) [Mass/Vol] 13.8 g/dL Normal 13.5-17.[address] [facility] Comment on above: Performed By: #### 2 488617 #### [facility] [address] [place] [address] Lymphocytes (Bld) [#/Vol] 1.7 E9/L Normal 1.0-4.[address] [facility] Comment on above: Performed By: #### 2 185254 #### [facility] [address] [place] [address] Lymphocytes/100 WBC (Bld) 20.4 % Normal 14.0-50.[address] [facility] Comment on above: Performed By: #### 2 940171 #### [facility] [address] [place] [address] MCH (RBC) [Entitic mass] 32.2 pg Normal 27.0-34.[address] [facility] Comment on above: Performed By: #### 2 502320 #### [facility] [address] [place] [address] MCHC (RBC) [Mass/Vol] 34.1 g/dL Normal 31.4-36.0 [facility] Comment on above: Performed By: #### 2 160682 #### [facility] [address] [place] [address] MCV (RBC) [Entitic vol] 94.5 fL Normal 80.0-100.[address] [facility] Comment on above: Performed By: #### 2 023029 #### [facility] [address] [place] [address] Monocytes (Bld) [#/Vol] 0.5 E9/L Normal 0.2-1.[address] [facility] Comment on above: Performed By: #### 2 976380 #### [facility] [address] [place] [address] Neutrophils (Bld) [#/Vol] 5.7 E9/L Normal 2.0-7.[address] [facility] Comment on above: Performed By: #### 2 974505 #### [facility] [address] [place] [address] Neutrophils/100 WBC (Bld) 69.7 % Normal 36.0-75.[address] [facility] Comment on above: Performed By: #### 2 200745 #### [facility] [address] [place] [address] Platelet mean volume (Bld) [Entitic vol] 8.6 fL Normal 6.4-10.[address] [facility] Comment on above: Performed By: #### 2 985565 #### [facility] [address] [place] [address] Platelets (Bld) [#/Vol] 205.0 E9/L Normal 150.0-500.[address] [facility] Comment on above: Performed By: #### 2 504748 #### [facility] [address] [place] [address] RBC (Bld) [#/Vol] 4.3 E12/L Normal 4.3-5.[address] [facility] Comment on above: Performed By: #### 2 561621 #### [facility] [address] [place] [address] WBC corrected for nucl RBC Auto (Bld) [#/Vol] 8.1 E9/L Normal 4.0-11.[address] [facility] Comment on above: Performed By: #### 2 466658 #### [facility] [address] [place] [address] CHEMISTRYOrdered By: SYSTEM SYSTEM on 07-07-2023 Anion [...] Monitor Recordon 07-07-2023 Monitor Record [id number]#1.00 TIFF [address] [facility] Monitor Record [id number]#1.00 TIFF Normal [facility] Monitor Record [id number]#1.00 TIFF Normal [facility] Monitor Record [id number]#1.00 TIFF Normal [facility] Monitor Record [id number]#1.00 TIFF Normal [facility] Monitor Record [id number]#1.00 TIFF [address] [facility] Progress Note-Physicianon Progress Note-Physician Subjective Detail vancomycin [...] 05:35:00) Lymph Auto: 20.4 % (07/07/23 05:35:00) Placer Auto: 6.4 % (07/07/23 05:35:00) Eos Auto: 3 % (07/07/23 05:35:00) Basophil Auto: 0.5 % (07/07/23 05:35:00) Neutro Absolute: 5.7 E9/L (07/07/23 05:35:00) Lymph Absolute: 1.7 E9/L (07/07/23 05:35:00) Placer Absolute: 0.5 E9/L (07/07/23 05:35:00) Eos Absolute: [...] Ordered: Initial Hospital Care/Day Moderate 55 Minutes 49747 2. Acute kidney injury (N17.9: Acute kidney failure, unspecified) FENa 1.8 which may be intrinsic; patient was taking HCTZ and lisinopril which had been held and he was also taking Mobic Creatinine down to 1.6 Continue to trend Ordered: Initial Hospital Care/Day Moderate 55 Minutes [address]3707 Orders: acetaminophen, 650 mg = 2 tab(s), Tab, Oral, q6hr PRN Pain, Routine, Start date 07/06/23 16:49:00 EDT, 07/06/23 16:49:00 EDT Al hydroxide/Mg hydroxide/simethicone, 30 mL, Susp-Or (more content not included)... Normal [facility] Comment on above: Result Comment: Elec tronically Signed By: Dwight Eddy DO.br\Date and Time Signed: 07/07/23 14:55 EDT eGFRon 07-07-2023 eGFR 47 mL/min/1.73 m2 Low >=[address] [facility] Comment on above: Order Comment: Order added by Discern Expert. Performed By: #### 1 [id number] #### [facility] [address] [place] [address] [facility] Anion gap [Moles/Vol] 12 mmol/L Normal 6-16 [facility] Comment on above: Performed By: #### 2 599775 #### [facility] [address] [place] [address] Calcium [Mass/Vol] 8.6 mg/dL Low 8.9-11.[address] [facility] Comment on above: Performed By: #### 2 463498 #### [facility] [address] [place] [address] Chloride [Moles/Vol] 104 mmol/L Normal 101-111 [facility] Comment on above: Performed By: #### 2 233193 #### [facility] [address] [place] [address] CO2 [Moles/Vol] 25 mmol/L Normal 21-[address] [facility] Comment on above: Performed By: #### 2 021939 #### [facility] [address] [place] [address] Creatinine [Mass/Vol] 1.8 mg/dL High 0.5-1.3 [facility] Comment on above: Performed By: #### 2 541946 #### [facility] [address] [place] [address] Glucose [Mass/Vol] 111 mg/dL Normal 55-[address] [facility] Comment on above: Performed By: #### 2 159102 #### [facility] [address] [place] [address] Potassium [Moles/Vol] 3.5 mmol/L Normal 3.5-5.3 [facility] Comment on above: Performed By: #### 2 327203 #### [facility] [address] [place] [address] Sodium [Moles/Vol] 137 mmol/L Normal 135-[address] [facility] Comment on above: Performed By: #### 2 405787 #### [facility] [address] [place] [address] Urea nitrogen [Mass/Vol] 29 mg/dL High 5-[address] [facility] Comment on above: Performed By: #### 2 129766 #### [facility] [address] [place] [address] Urea nitrogen/Creatinine [Mass ratio] 16 No Units Normal 10-[address] [facility] Comment on above: Performed By: #### 2 825962 #### [facility] [address] [place] [address] CBC w/ Auto Diffon 4 Basophils/100 WBC (Bld) 0.4 % Normal 0.0-2.[address] [facility] Comment on above: Performed By: #### 2 913717 #### [facility] [address] [place] [address] Basophils/Leukocytes Auto (Bld) [Pure # fraction] 0.0 E9/L Normal 0.0-0.[address] [facility] Comment on above: Performed By: #### 2 994026 #### [facility] [address] [place] [address] Eosinophils (Bld) [#/Vol] 0.2 E9/L Normal 0.0-0.[address] [facility] Comment on above: Performed By: #### 2 251621 #### [facility] [address] [place] [address] Eosinophils/100 WBC (Bld) 2.8 % Normal 0.0-8.[address] [facility] Comment on above: Performed By: #### 2 337707 #### [facility] [address] [place] [address] Erythrocyte distribution width (RBC) [Ratio] 13.9 % Normal 10.9-14.[address] [facility] Comment on above: Performed By: #### 2 211916 #### [facility] [address] [place] [address] Hematocrit (Bld) [Volume fraction] 46.2 % Normal 37.7-49.[address] [facility] Comment on above: Performed By: #### 2 432684 #### [facility] [address] [place] [address] Hemoglobin (Bld) [Mass/Vol] 15.6 g/dL Normal 13.5-17.[address] [facility] Comment on above: Performed By: #### 2 309924 #### [facility] [address] [place] [address] Lymphocytes (Bld) [#/Vol] 1.3 E9/L Normal 1.0-4.[address] [facility] Comment on above: Performed By: #### 2 014135 #### [facility] [address] [place] [address] Lymphocytes/100 WBC (Bld) 18.3 % Normal 14.0-50.[address] [facility] Comment on above: Performed By: #### 2 505615 #### [facility] [address] [place] [address] MCH (RBC) [Entitic mass] 32.2 pg Normal 27.0-34.[address] [facility] Comment on above: Performed By: #### 2 509102 #### [facility] [address] [place] [address] MCHC (RBC) [Mass/Vol] 33.7 g/dL Normal 31.4-36.0 [facility] Comment on above: Performed By: #### 2 359814 #### [facility] [address] [place] [address] MCV (RBC) [Entitic vol] 95.3 fL Normal 80.0-100.[address] [facility] Comment on above: Performed By: #### 2 172351 #### [facility] [address] [place] [address] Monocytes (Bld) [#/Vol] 0.6 E9/L Normal 0.2-1.[address] [facility] Comment on above: Performed By: #### 2 234037 #### [facility] [address] [place] [address] Neutrophils (Bld) [#/Vol] 4.9 E9/L Normal 2.0-7.[address] [facility] Comment on above: Performed By: #### 2 512881 #### [facility] [address] [place] [address] Neutrophils/100 WBC (Bld) 70.2 % Normal 36.0-75.[address] [facility] Comment on above: Performed By: #### 2 003828 #### [facility] [address] [place] [address] Platelet 189.0 E9/L Normal 150.0-500.[address] [facility] Comment on above: Performed By: #### 2 308214 #### [facility] [address] [place] [address] Platelet mean volume (Bld) [Entitic vol] 8.5 fL Normal 6.4-10.[address] [facility] Comment on above: Performed By: #### 2 491998 #### [facility] [address] [place] [address] RBC (Bld) [#/Vol] 4.8 E12/L Normal 4.3-5.[address] [facility] Comment on above: Performed By: #### 2 932401 #### [facility] [address] [place] [address] WBC corrected for nucl RBC Auto (Bld) [#/Vol] 7.0 E9/L Normal 4.0-11.[address] [facility] Comment on above: Performed By: #### 2 096967 #### [facility] [address] [place] [address] CHEMISTRYOrdered By: SYSTEM SYSTEM on 07-06-2023 Sodium [Moles/Vol] 127 mmol/L Invalid Interpretation Code Remisol Chem U Creatinine 93.5 mg/dL Invalid Interpretation Code Remisol Chem Lactic Acid Lvl 1.0 mmol/L Normal 0.5 - 2.2 mmol/L Remisol Chem Consent for Treatmenton 06-19 Consent for Treatment [id number]#1.00T IFF Normal [facility] ED Clinical Summaryon 2023 ED Clinical Summary (Inserted Image. Denisha ble to display) [address] [address] ED Clinical Summary Person Information Name: JEAN MARIE MAST SR/[facility] Age: 68 Years : 1955 Sex: Male Language: Nigerien PCP: Michelle Figueroa MD Marital Status: Visit Id: Visit Reason: Cellulitis - Leg; Lower leg pain-swelling; SENT BY DR MARISCAL, LEG PAIN Speciality: Acuity: 3 Enc Type: Inpatient Med Service: Emergency Arrival: 07/06/2023 12:00:42 Discharge: LOS: 000 03:16 Checkin: 07/06/2023 12:00:42 Checkout: 07/06/2023 15:16:48 Dispo Type: Admitted as IP to this [facility] EVENTS: Event Name Event Status Request Date/Time [...] 14:38:53 Patient Care Request 07/06/2023 14:38:53 ADDRESS: [address] [place], [place] [id number] [facility] DOC NOTES: MEDICAL INFORMATION: Prescriptions Given: Medications [...] up: DIAGNOSIS: 1:Cellulitis of right leg Normal [facility] ED Note-Physicianon 07-06-19 ED Note-Physician Basic Information Time Seen: Curt VARGAS Franki 07/06/2023 12:12 Chief Complaint pt reports he saw Yanira in this last week for cellulitis of RLE. Pt reports on ABX and not improving. Roberto Carlosce told him to come to ED due [...] made to ensure accuracy, however, inadvertently computerized building construction superintendent mistakes may be present. Appropriate healthcare PPE [...] mg= 1 (more content not included)... Normal [facility] Comment on above: Result Comment: Elec tronically Signed By: Franki Elias PA-C\.br\Date and Time Signed: 07/06/23 14:52 EDT\.br\Electronically Co-Signed By: Arnel Modi DO\.br\Date and Time Co-Signed: 07/06/23 15:54 EDT ED Patient Education Noteon 07-06-2023 ED Patient Education Note Normal [facility] ED Patient Summaryon 024 ED Patient Summary (Inserted Image. Denisha ble to display) [place] [address] Patient Discharge Instructions Person Information Name: JEAN MARIE MAST SR Age: 68 Years Arrival Date: 07/06/2023 12:00:42 Discharge Diagnosis: 1:Cellulitis of right leg Primary Care Physician: Michelle Figueroa MD Provider Information Primary Provider: Arnel Modi DO Advanced [employer] Generator Operator:Franki Elias PA-C The exam and treatment you received in the Emergency Department were for an urgent problem and are not intended as complete care. It is important that you follow up with a doctor, nurse practitioner, or physician?s registered medical assistant for ongoing care. If your symptoms become [...] opioids can be used to help relieve mnwetzhz-bf-srqomj pain and are often prescribed following a [...] be struggling with addiction, tell your health day care aide and ask for guidance or call [facility]?S National Helpline at 5-252-456-TEZV. l Source: [place] Department of Health and Human Services/Center for Disease Control & Prevention [facility] Medications Given: Medicati (more content not included)... Normal [facility] HEMATOLOGYOrdered By: SYSTEM SYSTEM on 07-06-2023 Basophils/100 [...] Lactic Acid Lvl 1.0 mmol/L Normal 0.5-2.[address] [facility] Comment on above: Performed By: #### 2 [id number] #### [facility] [address] [place] [address] No Panel InformationOrdered By: ANGPROCESSSERVER MICROBIOLOGY on 07-06-2023 Blood Culture Charcoal No growth at 4 da ys. Final to follow at 7 days. [facility] Blood Culture Charcoal No growth at 4 da ys. Final to follow at 7 days. [facility] Progress Note - Pharmacyon 0 5-17-2024 Progress Note - Pharmacy Vancomycin Pharmacy to [...] questions please contact the pharmacy at extension [phone]. Age: 68 Years Allergies: aspirin Weight: Last [...] 12:34:00) Lymph Auto: 18.3 % (07/06/23 12:34:00) Placer Auto: 8.3 % (07/06/23 12:34:00) Eos Auto: 2.8 % (07/06/23 12:34:00) Basophil Auto: 0.4 % (07/06/23 12:34:00) Neutro Absolute: 4.9 E9/L (07/06/23 12:34:00) Lymph Absolute: 1.3 E9/L (07/06/23 12:34:00) Placer Absolute: 0.6 E9/L (07/06/23 12:34:00) Eos Absolute: [...] 25 mmol/L (07/06/23 12:34:00) AGAP: 12 mEq/L (07/06/23 12:34:00) Calcium Lvl: 8.6 mg/dL Low (07/06/23 12:34:00) Lactic Acid Lvl: 1 mmol/L (07/06/23 12:34:00) Normal [facility] U Creatinineon 07-06-2023 U Creatinine 93.5 mg/dL Invalid Interpretation Code [facility] Comment on above: Performed By: #### 2 [id number] #### [facility] [address] [place] [address] U Sodiumon 07-06-2023 Sodium [Moles/Vol] 127 mmol/L Invalid Interpretation Code [facility] Comment on above: Performed By: #### 2 [id number] #### [facility] [address] [place] [address] URINALYSISOrdered By: SYSTEM SYSTEM on 07-06-2023 Bilirubin Ql (U) Negative Normal Negativemg/ d L [facility] UA Auto SS Clarity (U) Clear (07/06/23 8:20 PM) Normal Clear [facility] UA Auto SS Color (U) Light-Yellow 1 (07/06/23 8:20 PM) Normal Yellow [facility] UA Auto SS Comment on above: Interpretive Data: M icroscopic readings are only performed on those samples that meet specific criteria set forth by [facility]. Glucose Ql (U) Negative Normal Negativemg/d L [facility] UA Auto SS Hemoglobin Auto test strip (U) [Mass/Vol] Negative Normal Negativemg/d L [facility] UA Auto SS Ketones Auto test strip Ql (U) Negative Normal Negativemg/d L [facility]A Auto SS Leukocyte esterase Auto test strip Ql (U) Negative Normal NegativeLeu/ uL [facility] UA Auto SS Nitrite Auto test strip Ql (U) Negative Normal Negativemg/d L [facility] UA Auto SS pH (U) 5.5 *NA* (07/06/23 8:20 PM) Invalid Interpretation Code 5.0 - 9.0 [facility] UA Auto SS Protein Ql (U) Trace mg/dL Invalid Interpretation Code Negativemg/d L [facility] UA Auto SS Specific gravity (U) [Rel density] 1.020 *NA* (07/06/23 8:20 PM) Invalid Interpretation Code 1.005 - 1.030 [facility] UA Auto SS Urobilinogen (U) [Mass/Vol] Negative Normal Negativemg/d L [facility] UA Auto SS URINALYSISOrdered By: Gregor Gary on 07-06-2023 UA Spec Desc Random Urine (07/06/23 8:20 PM) Normal [facility] UA Auto SS Work Phone: Urinalysis with Microon 06-19 Bilirubin Ql (U) Negative Normal Negative [facility] Comment on above: Performed By: #### 4 [id number] #### [facility] [address] [place] [address] Clarity (U) Clear Normal Clear [facility] Comment on above: Performed By: #### 4 [id number] #### [facility] [address] [place] [address] Color (U) Light-Yellow Normal Yellow [facility] Comment on above: Result Comment: Micr oscopic readings are only performed on those samples that meet specific criteria set forth by [facility]. Performed By: #### 4 [id number] #### [facility] [address] [place] [address] Glucose Ql (U) Negative Normal Negative [facility] Comment on above: Performed By: #### 4 [id number] #### [facility] [address] [place] [address] Hemoglobin Auto test strip (U) [Mass/Vol] Negative Normal Negative [facility] Comment on above: Performed By: #### 4 [id number] #### [facility] [address] [place] [address] Ketones Auto test strip Ql (U) Negative Normal Negative [facility] Comment on above: Performed By: #### 4 [id number] #### [facility] [address] [place] [address] Leukocyte esterase Auto test strip Ql (U) Negative Normal Negative [facility] Comment on above: Performed By: #### 4 [id number] #### [facility] [address] [place] [address] Nitrite Auto test strip Ql (U) Negative Normal Negative [facility] Comment on above: Performed By: #### 4 [id number] #### [facility] [address] [place] [address] pH (U) 5.5 [pH] Invalid Interpretation Code 5.0-9.[address] [facility] Comment on above: Performed By: #### 4 [id number] #### [facility] [address] [place] [address] Protein Ql (U) Trace Abnormal Negative [facility] Comment on above: Performed By: #### 4 [id number] #### [facility] [address] [place] [address] Specific gravity (U) [Rel density] 1.020 Invalid Interpretation Code 1.005-1.[address] [facility] Comment on above: Performed By: #### 4 [id number] #### [facility] [address] [place] [address] Urobilinogen (U) [Mass/Vol] Negative Normal Negative [facility] Comment on above: Performed By: #### 4 [id number] #### [facility] [address] [place] [address] Type of Urine collection method Random Urine Normal [facility] Comment on above: Performed By: #### 4 [id number] #### [facility] [address] [place] [address] eGFRon 07-06-2023 eGFR 41 mL/min/1.73 m2 Low >=[address] [facility] Comment on above: Order Comment: Order added by Discern Expert. Performed By: #### 1 [id number] #### [facility] [address] [place] [address] US LE Venous Duplex Righton 07-04-2023 US [...] [place] MD Transcribed by: LALY Technologist: SHERI [facility] Consent for Treatmenton 06-19 Consent for Treatment [id number] IFF [facility] Physician Orderon 07-03-2023 Physician Order [id number] FF [facility] Consenton 08-15-2022 Consent [id number] CD:127 [facility] In office Testingon 08-16-19 In office Testing [id number] CD:127 [facility] Registrationon 08-15-2022 Registration [id number] CD:127 [facility] CHEMISTRYOrdered By: SYSTEM SYSTEM on 11-15-2021 Prostate specific Ag [Mass/Vol] 0.8 ng/mL Normal 0.1 - 3.5 ng/mL [facility] Vital Signs Date Time Vital Sign Value Performing Clinician Facility 08-15-2023 14:53-0400 Body height 185.42 cm [facility] 08-15-2023 14:53-0400 Body mass index (BMI) [Ratio] 31.4 kg/m2 [facility] 08-15-2023 14:53-0400 Body temperature 97.5 [degF] [facility] 08-15-2023 14:53-0400 Body weight 108 kg [facility] 08-15-2023 14:53-0400 Diastolic blood pressure 87 mm[Hg] [facility] 08-15-2023 14:53-0400 Heart rate 75 /min [facility] 08-15-2023 14:53-0400 Systolic blood pressure 135 mm[Hg] [facility] 07-25-2023 13:54-0400 Body height 185.42 cm [facility] 07-25-2023 13:54-0400 Body mass index (BMI) [Ratio] 31.6 kg/m2 [facility] 07-25-2023 13:54-0400 Body temperature 98.6 [degF] [facility] 07-25-2023 13:54-0400 Body weight 108.86 kg [facility] 07-25-2023 13:54-0400 Diastolic blood pressure 79 mm[Hg] [facility] 07-25-2023 13:54-0400 Heart rate 52 /min [facility] 07-25-2023 13:54-0400 Systolic blood pressure 142 mm[Hg] [facility] 07-10-2023 13:15-0400 Hourly Rounding Dwight Orellanaer [facility] 07-10-2023 12:29-0400 Hourly Rounding Dwight Boxcker [facility] 07-10-2023 12:29-0400 Promise to Return Dwight Boxcker [facility] 07-10-2023 12:01-0400 Heart rate 79 /min Dwight Boxcker [facility] 07-10-2023 12:01-0400 SaO2% (BldA) [Mass fraction] 95 % Dwight Surjit [facility] 07-10-2023 12:00-0400 Body temperature 97.34 [degF] Dwight Boxcker [facility] 07-10-2023 12:00-0400 Diastolic blood pressure 86 mm[Hg] Dwight Surjit [facility] 07-10-2023 12:00-0400 Mean blood pressure 105 mm[Hg] Dwight Orellanaer [facility] 07-10-2023 12:00-0400 Systolic blood pressure 142 mm[Hg] Dwight Orellanaer [facility] 07-10-2023 11:11-0400 Hourly Rounding Dwight Eddy [facility] 07-10-2023 11:11-0400 Promise to Return Dwight Eddy [facility] 07-10-2023 10:08-0400 Promise to Return Dwight Eddy [facility] 07-10-2023 07:51-0400 Heart rate 74 /min Dwight Eddy [facility] 07-10-2023 07:51-0400 SaO2% (BldA) [Mass fraction] 94 % Dwight Eddy [facility] 07-10-2023 07:50-0400 Diastolic blood pressure 81 mm[Hg] Dwight Orellanaer [facility] 07-10-2023 07:50-0400 Mean blood pressure 106 mm[Hg] Dwight Orellanaer [facility] 07-10-2023 07:50-0400 Systolic blood pressure 154 mm[Hg] Dwight Orellanaer [facility] 07-10-2023 07:50-0400 Body temperature 98.24 [degF] Dwight Orellanaer [facility] 07-10-2023 00:10-0400 Blood Pressure Location Dwight Orellanaer [facility] 07-10-2023 00:10-0400 Body temperature 98.24 [degF] Dwight Orellanaer [facility] 07-10-2023 00:10-0400 Diastolic blood pressure 69 mm[Hg] Dwight Orellanaer [facility] 07-10-2023 00:10-0400 Heart rate 83 /min Dwight Orellanaer [facility] 07-10-2023 00:10-0400 Mean blood pressure 92 mm[Hg] Dwight Orellanaer [facility] 07-10-2023 00:10-0400 Respiratory rate 18 /min Dwight Orellanaer [facility] 07-10-2023 00:10-0400 SaO2% (BldA) [Mass fraction] 93 % Dwight Eddy [facility] 07-10-2023 00:10-0400 Systolic blood pressure 139 mm[Hg] Dwight Orellanaer [facility] 07-09-2023 19:25-0400 Heart rate 80 /min Dwight Eddy [facility] 07-09-2023 19:21-0400 Respiratory rate 16 /min Dwight Orellanaer [facility] 07-09-2023 19:21-0400 Body temperature 98.06 [degF] Dwight Orellanaer [facility] 07-09-2023 19:21-0400 Mean blood pressure 91 mm[Hg] Dwight Orellanaer [facility] 07-09-2023 05:51-0400 Blood Pressure Location Dwight Orellanaer [facility] 07-09-2023 05:51-0400 Body temperature 98.24 [degF] Dwight Orellanaer [facility] 07-09-2023 05:51-0400 Heart rate 73 /min Dwight Eddy [facility] 07-09-2023 05:51-0400 Mean blood pressure 96 mm[Hg] Dwight Eddy [facility] 07-09-2023 05:51-0400 Respiratory rate 18 /min Dwight Eddy [facility] 07-09-2023 00:10-0400 Blood Pressure Location Dwight Eddy [facility] 07-09-2023 00:10-0400 Body temperature 98.42 [degF] Dwight Eddy [facility] 07-09-2023 00:10-0400 Heart rate 69 /min Dwight Eddy [facility] 07-09-2023 00:10-0400 Mean blood pressure 91 mm[Hg] Dwight Eddy [facility] 04-02-2023 13:09-0500 Body height 185.4 cm Gerald Padilla MD Work Phone: [facility] 04-02-2023 13:09-0500 Body mass index (BMI) [Ratio] 31.14 kg/m2 Gerald Padilla MD Work Phone: [facility] 04-02-2023 13:09-0500 Body weight 107.05 kg Gerald Padilla MD Work Phone: [facility] 04-02-2023 13:09-0500 Diastolic blood pressure 77 mm[Hg] Gerald Padilla MD Work Phone: [facility] 04-02-2023 13:09-0500 Systolic blood pressure 137 mm[Hg] Gerald Padilla MD Work Phone: [facility] 03-21-2023 14:55-0500 Body height 185.4 cm Cynthia Henderson DO Work Phone: [facility] 03-21-2023 14:55-0500 Body mass index (BMI) [Ratio] 31.14 kg/m2 Cynthia Henderson DO Work Phone: [facility] 03-21-2023 14:55-0500 Body weight 107.05 kg Cynthia Henderson DO Work Phone: [facility] 11-21-2021 08:55-0400 Blood Pressure Location Taras BARBA [facility] 11-21-2021 08:55-0400 Diastolic blood pressure 111 mm[Hg] Taras BARBA [facility] 11-21-2021 08:55-0400 Heart rate 73 /min Taras BARBA [facility] 11-21-2021 08:55-0400 Respiratory rate 16 /min Taras BARBA [facility] 11-21-2021 08:55-0400 Systolic blood pressure 148 mm[Hg] Taras BARBA [facility] Encounters Encounter Date Encounter Type Care Provider Facility Start: 09-12-2023 ambulatory Taras BARBA Facility :[facility] Start: 08-15-2023 End: 08-15-2023 ambulatory [facility] Work Phone: Start: 08-15-2023 End: 08-15-2023 Patient encounter procedure [facility] Infectious Disease Work Phone: Start: 08-06-2023 End: 08-07-2023 Pre-admission assessment Dixie Brandon [facility] Start: 07-27-2023 End: 07-27-2023 ambulatory JHONATAN MARISCAL Not Available Start: 07-25-2023 End: 07-25-2023 ambulatory [facility] Work Phone: Start: 07-25-2023 End: 07-25-2023 Patient encounter procedure [facility] Infect[facility] Disease Work Phone: Start: 07-18-2023 End: 07-18-2023 ambulatory JHONATAN D DOLCE Not Available Start: 07-17-2023 End: 07-17-2023 ambulatory MICHELLE Barlow FIGUEROA Not Available Start: 07-11-2023 End: 07-11-2023 ambulatory JHONATAN D DOLCE Not Available Start: 07-06-2023 End: 07-10-2023 Evaluation and management of inpatient Jhonatan D Dolce Facility:[facility] Start: 07-06-2023 Emergency department patient visit Arnel Modi Facility:[facility] Start: 07-06-2023 End: 07-10-2023 Evaluation and management of inpatient Dwight BarlowArti Eddy [facility] Start: 07-04-2023 End: 07-04-2023 ambulatory JHONATAN D DOLCE Not Available Start: 07-03-2023 End: 07-04-2023 ambulatory Jhonatan D Dolce Facility:[facility] Start: 07-03-2023 End: 07-03-2023 Patient encounter procedure Jhonatan Mariscal [facility] Start: 07-03-2023 End: 07-03-2023 ambulatory JHONATAN D DOLCE Not Available Start: 06-26-2023 End: 06-26-2023 ambulatory MICHELE A PLEASNICK Not Available Start: 06-19-2023 End: 06-19-2023 ambulatory MICHELE A PLEASNICK Not Available Start: 06-12-2023 End: 06-12-2023 ambulatory MICHELE A PLEASNICK Not Available Start: 06-04-2023 End: 06-05-2023 ambulatory LIZBETH GUKASIAK Not Available Start: 05-22-2023 End: 05-22-2023 ambulatory MICHELE A PLEASNICK Not Available Start: 05-15-2023 End: 05-15-2023 ambulatory LIZBETH REYES Not Available Start: 05-07-2023 End: 05-08-2023 ambulatory CHRIS MOREIRA Not Available Start: 05-07-2023 End: 05-07-2023 ambulatory JHONATAN Richardson DOLCE Not Available Start: 05-02-2023 End: 05-02-2023 ambulatory CYNTHIA HENDERSON Not Available Start: 05-01-2023 End: 05-01-2023 ambulatory CHRIS GONZALEZHN Not Available Start: 04-24-2023 End: 04-24-2023 ambulatory LIZBETH REYES Not Available Start: 04-23-2023 End: 04-23-2023 ambulatory JHONATAN Richardson DOLCE Not Available Start: 04-16-2023 End: 04-17-2023 ambulatory SHERIE HOUGH Not Available Start: 04-10-2023 End: 04-10-2023 ambulatory ENRIQUETA Parrish SHEILA Not Available Start: 04-10-2023 End: 04-10-2023 ambulatory SHERIE Angel GIANLUCA Not Available Start: 04-02-2023 End: 04-03-2023 ambulatory SHERIE HOUGH Not Available Start: 04-02-2023 Bamboo flowsheet Gerald martinez MD [facility] Start: 04-02-2023 Bamboo flowsheet Gerald martinez MD Work Phone: [facility] Start: 04-02-2023 End: 04-02-2023 Office outpatient new 30 minutes Gerald Padilla MD [facility] Comment on above: Bilateral tinnitus ( Primary Dx); Sensorineural hearing loss (SNHL), bilateral Start: 04-02-2023 End: 04-02-2023 ambulatory GERALD PADILLA Not Available Start: 03-30-2023 Chart abstracting Gerald rodriguez MD Work Phone: [facility] Start: 03-26-2023 Chart abstracting Cynthia Puga s [...] Available Start: 03-13-2023 End: 03-13-2023 ambulatory MICHELLE FIGUERAO Not Available Start: 02-27-2023 End: 02-27-2023 ambulatory JHONATAN D DOLCE Not Available Start: 02-09-2023 End: 02-09-2023 ambulatory JHONATAN D DOLCE Not Available Start: 08-15-2022 End: 08-16-2022 [facility] Start: 11-21-2021 End: 11-21-2021 Patient encounter procedure Taras BARBA [facility] Start: 11-15-2021 End: 11-15-2021 Patient encounter procedure Taras BARBA [facility] Procedures Date Procedure Procedure Detail Performing Clinician Start: 03-21-2023 End: 03-21-2023 Radex spine lumbosacral 2/3 views Cynthia Henderson DO Work Phone: Start: 09-08-2015 Cysto, left ureteral stent removal, left RGP, left ureteronephroscopy with Holmium laser ablation, multiple basket extraction of stone,fragments, replacement of JJ ureteral stent under fluoroscopic guidance. Taras BARBA Start: 08-04-2015 Cystoscopy Taras MOORE Comment on above: Left Stent Insertion Hernia of abdominal cavity (disorder) Taras BARBA Plan of Treatment Date Care Activity Detail Author Start: 06-08-2023 Medicare Annual Wellness (AWV) Medicare Annual Wellness (AWV) [facility] Start: 04-23-2023 End: 04-23-2023 Patient encounter procedure 04/23/2023 3:45 PM EST Office Visit [facility] [address] [place] [address] Cynthia Henderson DO [address] [place], [place] [id number] [facility] Start: 04-02-2023 End: 04-02-2023 ambulatory 04/02/2023 6:00 PM EST Evaluation [facility] [address] [place] [address] Sherie Hough, PT [address] [place] [address] [facility] Start: 04-02-2023 End: 04-02-2023 Patient encounter procedure [facility] Comment on above: Arrived Start: 10-20-2022 Influenza vaccination Influenza Vacc ine (#1) [facility] Start: 02-23-2021 Pneumococcal Vaccine : 65+ Years (1 - PCV) Pneumococcal Vaccine: 65+ Years (1 - PCV) [facility] Start: 1955 Screening for malign ant neoplasm of colon [facility] XR Lumbar spine 2 or 3 Views XR lumbar spine 2 or 3 views Imaging Routine Hip pain, bilateral 03/21/2023 2:51 PM EST [facility] XR Pelvis AP and Hip - bilateral GE 2 Views XR hips bilateral 2 views Imaging Routine Hip pain, bilateral 03/21/2023 2:51 PM EST [facility] Work Phone: Immunizations Immunization Date Immunization Notes Care Provider Mercedes perez 07-11-2013 tetanus toxoid, redu troy diphtheria toxoid, and acellular pertussis vaccine, adsorbed Taras BARBA [facility] Payers Date Payer Category Payer Unknown [employer] [id number] 2022-Present [id number] [employer] [place] [address] [id number] 2021 Medicare [id number] 2021 Medicare MEDICARE MEDICAR E PART B [id number] 2021-[place] [address] Medicare [id number] 2021 Medicare [id number] 1955 Unknown [id number] 2.16.840.1.647800.3.579.2.727 1956 Unknown [id number] 2.16.840.1.220853.3.579.2.727 1956 Unknown [id number] 2.16.840.1.137102.3.579.2.727 1956 Unknown [id number] 2.16.840.1.676659.3.579.2.727 1956 Unknown [id number] 2.16.840.1.800315.3.579.2.125 9 1956 Unknown [id number] 2.16.840.1.010432.3.579.2.125 9 1956 Unknown [id number] 2.16.840.1.818673.3.579.2.125 9 1956 Unknown [id number] 2.16.840.1.245169.3.579.2.125 9 1956 Unknown [id number] 2.16.840.1.827046.3.579.2.125 9 1956 Unknown [id number] 2.16.840.1.036112.3.579.2.125 9 1956 Unknown [id number] 2.16.840.1.815647.3.579.2.125 9 1956 Unknown [id number] 2.16.840.1.408747.3.579.2.125 9 1956 Unknown [id number] 2.16.840.1.501518.3.579.2.125 1956 Unknown [id number] 2.16.840.1.845174.3.579.2.125 1956 Unknown [id number] 2.16.840.1.618852.3.579.2.125 1956 Unknown [id number] 2.16.840.1.363551.3.579.2.125 1956 Unknown [id number] 2.16.840.1.800421.3.579.2.125 1956 Unknown [id number] 2.16.840.1.255155.3.579.2.125 1956 Unknown [id number] 2.16.840.1.815640.3.579.2.125 1956 Unknown [id number] 2.16.840.1.397117.3.579.2.125 1956 Unknown [id number] 2.16.840.1.425406.3.579.2.125 1956 Unknown [id number] 2.16.840.1.032631.3.579.2.125 1956 Unknown [id number] 2.16.840.1.984077.3.579.2.125 1956 Unknown [id number] 2.16.840.1.780810.3.579.2.125 1956 Unknown [id number] 2.16.840.1.234901.3.579.2.125 1956 Unknown [id number] 2.16.840.1.870532.3.579.2.125 1956 Unknown [id number] 2.16.840.1.901105.3.579.2.125 1956 Unknown [id number] 2.16.840.1.842823.3.579.2.125 9 1956 Unknown [id number] 2.16.840.1.215465.3.579.2.125 9 1956 Unknown [id number] 2.16.840.1.901156.3.579.2.125 9 1956 Unknown [id number] 2.16.840.1.877644.3.579.2.125 9 1956 Unknown [id number] 2.16.840.1.243730.3.579.2.125 9 1956 Unknown [id number] 2.16.840.1.777567.3.579.2.125 9 1956 Unknown [id number] 2.16.840.1.500474.3.579.2.125 9 1956 Unknown [id number] 2.16.840.1.925212.3.579.2.125 9 1956 Unknown [id number] 2.16.840.1.481792.3.579.2.125 9 Unknown Regular Insurance [id number] Social History Date Type Detail Facility Start: 11-26-2019 End: 08-12-2022 Tobacco smoking status Ex-smoker (finding) [facility] Tobacco smoking status Never [facility] Start: 08-04-2022 End: 03-21-2023 Sex Assigned At Male [facility] End: 02-19-1989 History of tobacco use Current smoker [facility] End: 02-19-1989 History of tobacco use Cigarette Smoker [facility] Start: 08-12-2022 Tobacco use and exposure Former smokeless tobacco user [facility] End: 02-19-1989 History of tobacco use Chews Tobacco [facility] Start: 03-21-2023 End: 04-02-2023 Alcohol intake Lifetime non-drinker (finding) [facility] Start: 08-04-2022 End: 03-21-2023 History of Social function [facility] Start: 08-12-2022 Tobacco Comment Last smoked: > [address] [facility] Start: 08-12-2022 Alcohol Comment Caffeine intak e: 3-4 cups per day soda/pop, energy drinks, tea [facility] Start: 1955 Sex Assigned At Not on file [facility] Start: 07-25-2023 Tobacco smoking status NHIS Never smoked tobacco (finding) [facility] Start: 1955 Sex Assigned At Male [facility] NEGATED: Highlighted rowStart: NINF History of tobacco use Passive smoker [facility] Functional Status Date Assessment Result Facility 07-06-2023 Functional Status N/A [facility] 07-06-2023 Functional Status [facility] 11-21-2021 Functional Status N/A [facility] Clinical Notes 11-21-2021 to 07-13-2023 Note Date & Type Note Facility 07-13-2023 Note Microbiology PROCEDURE: Blood Culture Charcoal [R1] SOURCE: Blood BODY SITE: Hand R COLLECTED DATE/TIME: 07/06/2023 12:25 EDT RECEIVED DATE/TIME: 07/06/2023 13:00 EDT START DATE/TIME: 07/06/2023 13:00 EDT FREE TEXT SOURCE: Curt VARGAS, Franki Elias PA-C, Franki FINAL REPORTS Final Report [] Verified Date/Time: 07/13/2023 15:00 EDT No growth at 7 days. Performing Locations R1: This test was performed at: [facility], [address] [place] [address], [facility] , , [facility] Comment on above: Performed By: #### 1 [id number] #### [facility] [address] [place] [address] 07-13-2023 Note Microbiology PROCEDURE: Blood Culture Charcoal [R1] SOURCE: Blood BODY SITE: Arm L COLLECTED DATE/TIME: 07/06/2023 12:34 EDT RECEIVED DATE/TIME: 07/06/2023 13:01 EDT START DATE/TIME: 07/06/2023 13:01 EDT FREE TEXT SOURCE: Curt VARGAS, Franki Elias PA-C, Franki FINAL REPORTS Final Report [] Verified Date/Time: 07/13/2023 15:00 EDT No growth at 7 days. Performing Locations R1: [facility], [address] [place] [address], [address] [place] [address], [address] [place] [address] Comment on above: Performed By: #### 1 [id number] #### [facility] [address] [place] [address] 07-11-2023 Note Microbiology PROCEDURE: Wound Culture [R1] [...] Locations R1: This test was performed at: [facility], [address] [place] [address], [address] [place] [address], [phone] Comment on above: Performed By: #### 2 [id number] #### [facility] [address] [place] [address] 07-10-2023 Note Admission and Discha rge Information Admit Date/Time:07/06/2023 14:36 Admitting Physician - Dwight Eddy DO Consulting Physician - Jean Marie Mccullough M.D, DPM, Jhonatan Brandon MD, Dixie Cartagena Admitting Diagnoses: Discharge Order Date Discharge Patient [...] (08/04/2015), Abdominal hernia. 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 He was subsequently admitted to [facility] with acute cellulitis of the right leg secondary to infected right ankle wound and suspected erysipelas. He was also admitted with Acute kidney injury secondary to ATN from infection, meloxicam, hydrochlorothiazide and lisinopril.. He was treated with IV Invanz, IV vancomycin, IV fluid, as needed pain medications. He was seen in consultation by the infectious disease specialist as well as the inpatient services rn. Dining Chair Seat Cushion Trimmer did a bedside incision and drainage of [...] Patient to follow-up with infectious disease specialist, inpatient services rn as well as his primary care physician accordingly. He will also follow-up with the vascular surgeon. New medication: Zyvox 600 mg twice daily x 2 weeks. Medications discontinued: Hydrochlorothiazide Meloxicam Services Consulted Consult to Infectious Disease Physician - Ordered -- 07/09/23 17:27:00 EDT, Cellulitis right leg, Consult and Co-manage Consult to Dining Chair Seat Cushion Trimmer - Ordered -- 07/06/23 16:50:00 EDT, RLE [...] Marie Mccullough 07/23/2023 (more content not included)... [facility] Comment on above: Result Comment: Elec tronically Signed By: AYANNA SUH, Elvira\.br\Date and Time Signed: 07/10/23 15:51 EDT 07-10-2023 Hospital Discharge instructions Patient Education 07/10/2023 15:22:59 Cellulitis, Adult, Zonh-od-Fulu Cellulitis, Adult Cellulitis is a skin infection. [...] Follow these instructions at home: Medicines Take basl-mpf-fiiocyw and prescription medicines only as told by [...] provider. Document Revised: 11/17/2021 Document Reviewed: 11/17/2021 Erly Patient Education 2022 [employer]. Follow Up Care 07/06/2023 12:01:51 With:Dixie Brandon Address: [address] [place] [address]- Business (1) When:1 to 2 weeks Comments:Call for followup appointment With:Jean Marie Mccullough Address: [address] [place] [id number]- Business (1) When:07/23/2023 13:45:00 With:Michelle Figueroa Address: [address] [place] [address]- Business (1) When:07/17/2023 10:00:00 With:Jhonatan Mariscal Address: [facility] [place] [address] [place] [address]- When:07/11/2023 08:20:00 [facility] 07-10-2023 Evaluation + Plan note Extrac [...] Marie Mccullough 07/23/2023 01:45 PM EDT [address] [place] [place] [address]- Business (1) Additional Instructions: Michelle Figueroa 07/17/2023 10:00 AM EDT [address] [place] [address]- Business (1) Additional Instructions: Jhonatan Mariscal 07/11/2023 08:20 AM EDT [facility] [address] [place] [address]- Additional Instructions: Dixie Brandon Within 1 to 2 weeks [address] [place] [address]- Business (1) Additional Instructions: Call for followup appointment Cellulitis, Adult, Uwwk-zw-Vnrt Extracted from: Title:Infection Admission H&P * Author:Jean [...] with IV Invanz and vancomycin. Seen by inpatient services rn and had a bedside incision and drainage of blister/bullae. Status post wound dressing. MRI does not show any deep tissue abscess of bone involvement/osteomyelitis. Infectious disease consult pending. Vascular surgery consult can be done as outpatient. Ordered: [facility] Hospital Care/Day Moderate 35 Minutes [id number] 2. Wound of right ankle (S91.001A: Unspecified open wound, right ankle, initial encounter) Continue wound dressings. Wound cultures so far not isolating any organisms. Ordered: [facility] Hospital Care/Day Moderate 35 Minutes [id number] Wound Culture 3. Acute kidney injury (N17.9: Acute kidney failure, unspecified) Acute kidney injury secondary to ATN from above infection, diuretics and lisinopril. Improved. Lisinopril and hydrochlorothiazide suspended. Treated with IV fluid. Ordered: [facility] Hospital Care/Day Moderate 35 Minutes [id number] 4. Obese (E66.9: Obesity, unspecified) Recommend therapeutic lifestyle modification changes. Ordered: [facility] Hospital Care/Day Moderate 35 Minutes [id number] 5. HTN (hypertension) (I10: Essential (primary) hypertension) [...] made to ensure accuracy. However inadvertent computerized building construction superintendent errors may be present. Elvira Urena. Hospitalist. [...] as infectious disease. Extracted from: Title:APSO Note Author:AYANNA SUH, Mbanefo [...] Infuse over 30 minute(s), 07/09/23 12:12:00 EDT [facility] Hospital Care/Day Moderate 35 Minutes [id number] 2. Wound of right ankle (S91.001A: Unspecified open wound, right ankle, initial encounter) Present during this admission. Wound culture. MRI of the foot pending. Ordered: ertapenem + Sodium Chloride 0.9% intravenous solution 50 mL, 500 mg = 0.5 EA, IV Piggyback, Daily, Routine, Start date 07/10/23 9:00:00 EDT, 100 mL/hr, Infuse over 30 minute(s), 07/09/23 12:12:00 EDT [facility] Hospital Care/Day Moderate 35 Minutes [id number] Wound Culture 3. Acute kidney injury (N17.9: Acute kidney failure, unspecified) Acute kidney injury secondary to ATN from above infection, diuretic and lisinopril. Improved. Avoid nephrotoxic drugs. Lisinopril and hydrochlorothiazide suspended. Treated with IV fluid. Ordered: [facility] Hospital Care/Day Moderate 35 Minutes [id number] 4. Obese (E66.9: Obesity, unspecified) Recommend therapeutic lifestyle modification changes. Ordered: [facility] Hospital Care/Day Moderate 35 Minutes [id number] 5. HTN (hypertension) (I10: Essential (primary) hypertension) [...] made to ensure accuracy. However inadvertent computerized building construction superintendent errors may be present. Elvira Urena. Hospitalist. Other obstructive and reflux uropathy (N13.8: Other obstructive and reflux uropathy) Orders: ertapenem + Sodium Chloride 0.9% intravenous solution 50 mL, 500 mg = 0.5 EA, IV Piggyback, Once, Stop date 07/09/23 13:00:00 EDT, Routine, Start date 07/09/23 13:00:00 EDT, 100 mL/hr, Infuse over 30 minute(s), 07/09/23 12:13:00 EDT Extracted from: Title:Progress/SOAP Note Author:Cyndy Eddy DO Date:07/08/23 68-year-old male admitted fo r cellulitis [...] control as needed Last for a.m. Ordered: [facility] Hospital Care/Day Moderate 35 Minutes [id number] 2. Acute kidney injury (N17.9: Acute kidney failure, unspecified) Serum creatinine down to 1.4 FENa from yesterday was 1.8; may be intrinsic and he was taking HCTZ, lisinopril and Mobic in the outpatient setting which all have been held Ordered: [facility] Hospital Care/Day Moderate 35 Minutes [id number] Orders: Basic Metabolic Panel eGFR Extra Lav [...] testing is complete. Extracted from: Title:Progress/SOAP Note Author:Cyndy Eddy DO Date:07/07/23 68-year-old male admitted fo r cellulitis [...] Ordered: Initial Hospital Care/Day Moderate 55 Minutes [id number] 2. Acute kidney injury (N17.9: Acute kidney failure, unspecified) FENa 1.8 which may be intrinsic; patient was taking HCTZ and lisinopril which had been held and he was also taking Mobic Creatinine down to 1.6 Continue to trend Ordered: Initial Hospital Care/Day Moderate 55 Minutes [id number] Orders: acetaminophen, 650 mg = 2 tab(s), [...] Diet CBC w/ Auto Diff Consult to Dining Chair Seat Cushion Trimmer Creatinine Urine eGFR Notify Provider Vital Signs [...] Diet CBC w/ Auto Diff Consult to Dining Chair Seat Cushion Trimmer Creatinine Urine Notify Provider Vital Signs Notify [...] Date:09/12/2023 03:30:00 PM Scheduled Provider:Taras BARBA MD Location:[facility] Appointment Type:URO Office Visit Diagnostic Tests Pending * Vancomycin Level Trough 07/12/23 Future Scheduled Tests Laboratory* PSA Total 11/21/22 * Basic Metabolic Panel 07/17/23 Radiology* XR Abdomen 1 View 11/21/22 [facility]05-[facility]24 NoteBasic Information Admit Date/Time:07/06/2023 14:38 Chief [...] initially his leg on Sunday felt like mutc-gvd-qvbjtua. 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Result Comment: Electronically Signed By: Dwight Eddy DO\.br\Date and Time Signed: 07/06/23 17:41 [id number] History of Present illness Narrative* Gerald Padilla MD - 04/02/2023 1:10 PM EST Subjective Patient ID: Jean Marie Mast is a 68 y.o. male who presents [...] hyperplasia with urinary obstruction 08/04/2022 Essential hypertension ([facility]/HCC) 08/04/2022 Gastroesophageal reflux disease without esophagitis 08/04/2022 Calculus of kidney 08/04/2022 Nephrolithiasis 08/04/2022 Other chronic pain 08/04/2022 Resolved Ambulatory Problems Diagnosis Date Noted No Resolved Ambulatory Problems Past Medical History: Diagnosis Date Gout Hypertension (CMS/HCC) Past Surgical History: Procedure Laterality Date HERNIA REPAIR 2012 [place] REMOVAL OF KIDNEY STONE 2015 x3 Allergies Allergen Reactions Aspirin Hives Current [...] need GONZALEZ. Not interested [facility] to [facility] Tinnitus managementclinic documented in this encounterSouthPointe [id number] History of Present illness Narrative* Carlotta Morrison [...] History: Procedure Laterality Date HERNIA REPAIR 2013 [place] REMOVAL OF KIDNEY STONE 2016 x3 FAMILY [...] to Dr. Michelle Figueroa. documented in this encounterSouthPointe [id number] Hospital Discharge instructions Patient Education 11/21/2021 09:20:07 Kidney Stones, Wudz-jf-Dadh Kidney Stones Kidney stones are rock-like masses [...] Follow these instructions at home: Medicines Take fszy-qxu-flnpfag and prescription medicines only as told by [...] 07/24/2008 Document Revised: 06/24/2019 Document Reviewed: 06/24/2019 Erly Patient Education 2020 [employer]. Follow Up Care 01/24/2021 08:12:17 With:Taras BARBA MD, URL Address: [address] [place] [address]- When:Within 18 Month(s) Comments:w/psa and kub [facility] Evaluation + Plan note Future Appointments Appointment Date:11/21/2021 08:45:00 AM Scheduled Provider:Taras BARBA MD Location:[facility] Appointment Type:[facility]O [facility] App[facility]ments Appointment Date:05/21/2023 08:00:00 AM Scheduled Provider:Taras BARBA MD Location:[facility] Appointment Type:URO Office Visit Future Scheduled Tests Laboratory* PSA Total 11/21/22 Radiology* XR Abdomen 1 View 11/21/22 [facility] Evaluation + Plan note Future Appointments Appointment Date:09/12/2023 03:30:00 PM Scheduled Provider:Taras BARBA MD Location:[facility] Appointment Type:URO Office Visit Future Scheduled Tests Laboratory* PSA Total 11/21/22 Radiology* XR Abdomen 1 View 11/21/22 [facility] Future Appointments Appointment Date:09/12/2023 03:30:00 PM Scheduled Provider:Taras BARBA MD Location:[facility] Appointment Type:URO Office Visit Future Scheduled Tests Laboratory* PSA Total 11/21/22 * Basic Metabolic Panel 07/17/23 Radiology* XR Abdomen 1 View 11/21/22 [facility] Diagnosis Hip pain, bilateral- Primary Pain in joint, pelvic region and thigh Left hip pain Pain in joint, pelvic region and thigh Lumbar spondylosis Lumbosacral spondylosis without myelopathy Degeneration of lumbar intervertebral disc Degeneration of lumbar or lumbosacral 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 Healthcare[facility] note* Diagnosis Bilateral tinnitus- Primary Sensorineural hearing loss (SNHL), bilateral documented [facility] this [facility] HealthcareEvaluation noteNo assessment information availableMer[facility] Work Phone: Evaluation note* Diagnosis Onset Date Resolution Status Erysipelas of right lower extremity acute [facility] Work Phone: Hospital course Narrative No data available for this section [facility] No data available for this section [facility] No data available for this section [facility] Reason for Referral Specialty Diagnoses / Procedures Referred By Damien t Referred To Contact Physical Therapy Diagnoses Hip pain, bilateral Left hip pain Lumbar spondylosis 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 Procedures [place] OFFICE/OUTPATIENT NEW HIGH MDM 60 MINUTES Pocos, Rafael, DO [address] [place] [address] Cynthia Ramirez, PT [address] [place] [address] Referral ID Status Reason Start Date Expiration Date Visits Requested Visits Authorized [id number] Authorized Consult and Treat 03/21/2023 09/17/2023 10 10 Summary Purpose Family History No Family History Records Found Advance Directives Advance Directive Response Recorded Date/ Time Advance Directives No July 24 1:47pm Chief Complaint and Reason for Visit Chief Complaint post hosp [facility] Chief Complaint post hosp [facility] Patient here for a 3 week f/u Reason for Visit Erysipelas of right lower extremity Additional Source Comments Reason for Visit (unrecogniz ed section and content) Reason Comments Pain Specialty Diagnoses / Procedures Referred By Contac t Referred To Contact Orthopaedic Surgery Diagnoses Left hip pain Michelle Figueroa [place] [address] Cynthia Henderson, DO [address] [place] [address] Referral ID Status Reason Start Date Expiration Date V isits Requested Visits Authorized [id number] Closed Specialty Services Required 03/13/2023 09/09/2023 1 [...] 2023 End: July 25, 2023 Personnel Name: Michelle Figueroa MD Address: Address: [address] [place] [address] 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 Relationship Specialty Start Date End Date Michelle Figueroa MD [address] [place] [address] PCP - General Family Medicine 07/05/22 Michelle Figueroa MD [address] [place] [address] PCP - ACO Reach 07/13/22 (unrecognized sect [...] content) DATE CREATED AUTHOR 07/09/2023 [facility] DATE CREATED AUTHOR AUTHOR'S ORGANIZ ATION 07/10/2023 [facility] DATE CREATED AUTHOR AUTHOR'S ORGANIZ ATION 07/11/2023 [facility] DATE CREATED AUTHOR AUTHOR'S ORGANIZ ATION 07/13/2023 [facility] DATE CREATED AUTHOR AUTHOR'S ORGANIZ ATION 07/15/2023 [facility] DATE CREATED AUTHOR AUTHOR'S ORGANIZ ATION 07/19/2023 [facility] DATE CREATED AUTHOR AUTHOR'S ORGANIZ ATION 07/28/2023 [facility] EPIC Goals (unrecognized section and [...] BE BASED ON THE PRIMARY CLINICAL RECORDS. [employer] [facility]. provides no warranty or guarantee of the accuracy or completeness of information in this document.
[2023-08-17] MEDS: LIDOCAINE HCL 1% 100 MG/10 ML MDV INJ (08:23)
[2023-08-17] MEDS: 0.9 % SODIUM CHLORIDE 500 ML, LIDOCAINE HCL 20 ML, SODIUM BICARBONATE 10 MEQ INJ (08:23)
== END 2023-08-17 07:39 | disposition home or self-care (01) ==
LOC: VC 07:51
PROVIDERS: PCP Podiatrist Foot & Ankle Surgery; Visit Provider Radiology Diagnostic Radiology
DX: I83.813 Varicose veins of bilateral lower extremities with pain (principal)
CPT/HCPCS: 36478

== ENCOUNTER 2023-08-20 07:44 | Outpatient (OUT) | payer MEDICARE, OTHER, SELFPAY ==
--- NOTE | 2023-08-20 07:39 | V.VEINS.HP ---
Vital Signs 08/20/23 07:42 Height 73 ft Weight 108.862 kg BMI 0.2 Varicose Veins Risk Scores Risk Assessments: No Data to Display Meds Home Medications and Allergies Allergies Allergy/AdvReac Type Severity Reaction Status Date / Time aspirin Allergy Unknown Verified 08/10/23 17:07
[2023-08-20 07:42] VITALS: BP 145/81; PULSE 78; O2SAT 96; BMI 31.7
--- NOTE | 2023-08-20 07:55 | VEIN_ITS ---
Patient Name: JEAN MARIE MAST MR#: [id number] : 1955 Exam Date: 08/20/2023 Ordering Doctor: DR CYNTHIA BOWMAN M.D. RADIOLOGY REPORT PROCEDURE: FACILITY EST LMTD VEIN CENTER - OFFICE VISIT FOLLOW UP COMPARISON: None. PROGRESS NOTES: The patient reports improvement in leg symptoms. There has been interval reduction in amount of swelling. The patient has followed our recommendations to walk 20-30 minutes once or twice per day since the procedure. Physical exam demonstrates decrease in varicosities of the leg. Persistent varicosities and edema are identified along the right leg. Review of the ultrasound performed the same day demonstrates occlusive thrombus extending throughout the treated vein(s), see separate report, consistent with a successful ablation. No thrombus extending into or beyond the saphenofemoral junction. The patient expressed a desire to proceed with treatment of remaining incompetent varicosities. The patient was informed that treatment was a process and would require several procedures/sessions. VEIN/ Facility EST LMTD IMPRESSION: 1. Successful ablation of the right great saphenous vein(s). 2. Persistent varicose veins and right lower extremity swelling and associated symptoms. PLAN: 1. Endovenous laser ablation of right small saphenous vein. Nurse notes, history and physical were reviewed and confirmed, see attached forms. The nurse was present throughout the physical exam and consultation Dictated by: Viktor Hernandez M.D. on 08/20/2023 at 09:04 Approved by: Viktor Hernandez M.D. on 08/20/2023 at 09:05
--- NOTE | 2023-08-20 07:56 | VEIN_ITS ---
Patient Name: JEAN MARIE MAST MR#: [id number] : 1955 Exam Date: 08/20/2023 Ordering Doctor: DR CYNTHIA BOWMAN M.D. RADIOLOGY REPORT PROCEDURE: VC EXT VENOUS RT LMTD COMPARISON: None. INDICATIONS: Phlebitis of superficial veins of rt lower extremity I80.01 TECHNIQUE: Lower extremity holder scale and Duplex Doppler evaluation of the deep venous system from the inguinal ligament through the calf veins. FINDINGS: REGION: Right lower extremity. THROMBI: Negative for DVT. Heat induced thrombus in right GSV 1.4 cm from SFJ and extends to distal lower leg. COMPRESSIBILITY: Non-compressible segments corresponding to thrombus FLOW: Areas of no flow corresponding to thrombus OTHER: CONCLUSION: 1. Successful post ablation occlusion of right great saphenous vein. Dictated by: Viktor Hernandez M.D. on 08/20/2023 at 09:03 Approved by: Viktor Hernandez M.D. on 08/20/2023 at 09:04
--- NOTE | 2023-08-20 08:01 | VEINCLINIC_ITS ---
Vital Signs 3 08/20/23 07:42 Height 6 ft 1 in Weight 108.862 kg BMI 31.7 BP 145/81 H BP Location Right Brachial BP Position Sitting BP Cuff Size Adult Respiration 16 Pulse 78 Pulse Oximetry (%) 96 Comment The patient's blood pressure is elevated. Varicose Veins Viktor Acevedo MD personally performed the services described in this documentation, as scribed by Esther Sy RDMS in my presence and it is both accurate and complete. Esther Acevedo RDMS, am scribing for, and in the presence of, Dr. Gerardo Hernandez and in the presence of the patient. thigh: bilateral, knee: bilateral, calf: bilateral and ankle: bilateral aching, burning, sharp and other (itching) 10 2 years Worsened in recent months: Yes standing and sitting analgesics, elevating extremities and compression stockings Reports erythema, firmness, heaviness, limb pain, edema, leg edema and other (cellulitis, ulcer) History of lower extremity trauma: No Superficial thrombophlebitis: Yes Family history of varicose veins: no Has patient had previous lower extremity venous surgery: No Patient has previously received the following treatment(s) for lower extremity varicose veins: Reports none Does patient have a history of : not applicable Does patient intend to have future pregnancies: not applicable Has patient had lower extremity venous scan with relux testing: Yes Support hose used: Yes Problems walking or doing physical activity: Yes How does it affect you: unable to stand for periods of time Do you walk much: Yes Do you stand much: Yes Medication compliance: good Large amounts of Vitamin K: No Review of Systems 2 ROS0 Narrative Viktor Acevedo MD personally performed the services described in this documentation, as scribed by Esther Sy RDMS in my presence and it is both accurate and complete. Esther Acevedo RDMS, am scribing for, and in the presence of, Dr. Gerardo Hernandez and in the presence of the patient. Status of ROS 10 or more systems reviewed and unremark able except as noted in history and below Cardiovascular Reports: edema and swelling of feet/ankles Musculoskeletal Reports: extremity pain, extremity swelling, joint pain, joint swelling, muscle cramps and muscle weakness Integumentary/Breast Reports: itching, redness, skin pain, skin tenderness, skin swelling, sores (right distal medial), non-healing lesion (right distal medial) and changes in skin color (hemosiderin staining) Hematologic/Lymphatic Reports: easy bruising [facility] Medical History (Updated 08/20/23 @ 08:45 by Esther Sy) Phlebitis and thrombophlebitis of superficial vessels of right lower extremity ?I80.01 - Phlebitis and thrombophlebitis of superficial vessels of right lower extremity (ICD-10) Phlebitis and thrombophlebitis of superficial vessels of left lower extremity ?I80.02 - Phlebitis and thrombophlebitis of superficial vessels of left lower extremity (ICD-10) Varicose veins of bilateral lower extremities with pain ?I83.813 - Varicose veins of bilateral lower extremities with pain (ICD-10) Hernia ?K46.9 - Unspecified abdominal hernia without obstruction or gangrene (ICD- 10) Abscess ?L02.91 - Cutaneous abscess, unspecified (ICD-10) Cellulitis ?L03.90 - Cellulitis, unspecified (ICD-10) Kidney stone ?N20.0 - Calculus of kidney (ICD-10) Hypertension ?I10 - Essential (primary) hypertension (ICD-10) Gout ?M10.9 - Gout, unspecified (ICD-10) Surgical History (Updated 08/20/23 @ 08:45 by Esther Sy) Status post ablation of incompetent vein using laser ?Z98.890 - Other specified postprocedural states (ICD-10) History of hernia repair ?Z98.890 - Other specified postprocedural states (ICD-10) ?Z87.19 - Personal history of other diseases of the digestive system (ICD-10) Family History (Updated 08/20/23 @ 08:48 by Esther Sy) Father Family history of cancer Family history of diabetes mellitus Mother Family history of hypertension Social History (Updated 08/20/23 @ 08:49 by Esther Sy) Within the past year, how often did you have a drink containing alcohol: monthly or less Smoking status: Former smoker What tobacco products do you use: cigarettes Packs per day: 0.5 Years smoked: 20 Smoking pack-years: 10.00 Smoking quit date/years: >15 years ago Non-prescribed substance use: denies use Meds Home Medications and Allergies Home Medications ?Medication ?Instructions ?Recorded ?Confirmed ?Type Lactobacillus acidophilus 10 100 mmu cells PO DAILY 08/20/23 08/20/23 History billion cell capsule (Probacap) allopurinol 200 mg tablet 200 mg PO DAILY 08/20/23 08/20/23 History amlodipine 5 mg tablet 5 mg PO DAILY 08/20/23 08/20/23 History linezolid 600 mg tablet 600 mg PO BID 08/20/23 08/20/23 History Allergies Allergy/AdvReac Type Severity Reaction Status Date / Time aspirin Allergy Unknown Verified 08/10/23 17:07 Exam Narrative Exam Narrative: IViktor MD personally performed the services described in this documentation, as scribed by Esther Sy RDMS in my presence and it is both accurate and complete. IEsther RDMS, am scribing for, and in the presence of, Dr. Gerardo Hernandez and in the presence of the patient. Constitutional Documenting provider has reviewed patient's vital signs: yes Common normals: oriented x3 General appearance: cooperative Lymph Lymphatic: no lymphedema noted Chest Common normals: inspection of chest normal Respiratory Common normals: normal respiratory effort Cardio Rate: regular rate Rhythm: regular rhythm Peripheral pulses: posterior tibial pulses present and dorsalis pedis pulses present GI Common normals: Normal to inspection, nondistended, normoactive bowel sounds present Extremity General: calf tenderness, edema (Right lower extremity edema significantly improved) and other findings (Non-healing ulcer right distal medial lower leg) Right lower extremity: lower leg Right lower leg: inspection Left lower extremity: lower leg Left lower leg: inspection Extremity image (front): 2 1. Wound 2. large varicose vein Neuro Common normals: oriented x3 Results Imaging Venous US: My impression: Patient in today for follow up ultrasound of lower extremity following treatment of EVLT of right GSV completed on 08/17/2023. 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 Assessment and Plan Assessment and Plan (1) Status post ablation of incompetent vein using laser: (2) Phlebitis and thrombophlebitis of superficial vessels of right lower extremity: (3) Phlebitis and thrombophlebitis of superficial vessels of left lower extremity: (4) Varicose veins of bilateral lower extremities with pain: Assessment and Plan: The patient tolerated the procedure well without complication.? The patient verbalizes understanding and states they will comply.? Patient was given post- procedure instructions. Patient was discharged in good condition.? Scheduled to undergo follow-up evaluation/additional laser treatment on? 08/31/23 (5) Hernia: (6) Abscess: (7) Cellulitis: (8) Kidney stone: (9) Hypertension: (10) Gout:
--- OUTSIDE RECORDS SUMMARY | 2023-08-20 08:03 | XMS_ITS | CCD ---
Author Organization [facility] CliniSyhi Care Team Providers Care Pediatric Allergist Name Role Phone NONE, XXXX Primary Care Physician Unavailab Michelle Ace MD Primary Care Provider Michelle Figueroa MD Unavailable [phone] Michelle Figueroa Primary Care Physician Jhonatan Mariscal Admitting Unavailable Doltonya, Jhonatan Richardson Attending Unavailable Jhonatan Mariscal Referring Unavailable Arnel Modi Attending Unavailable Taras BARBA Attending Unavailable Courtney BENOIT Attending Unavailable Jose Manuel Figueroa Attending Unavailable Jhonatan Mariscal Consulting Unavailable Dwight Eddy Admitting Unavailable OElvira ANDRADE Attending Unavailable DolJULIETH zimmerman Consulting Unavailable Dolce, Jhonatan Richardson Consulting Unavailable Dolce, Jhonatan Richardson Consulting Unavailable Dolce, Jhonatan Richardson Consulting Unavailable Dolce, Jhonatan Richardson Consulting Unavailable Dolce, Jhonatan Richardson Consulting Unavailable Dolce, Jhonatan Richardson Consulting Unavailable Dolce, Jhonatan Richardson Consulting Unavailable Dolce, Jhonatan Richardson Consulting Unavailable Dolce, Jhonatan Richardson Consulting Unavailable Blank, Jean Marie S Consulting Unavailable BlankShiva Jean Marie S Consulting Unavailable Blank, Jean Marie S Consulting Unavailable Blank, Jean Marie S Consulting Unavailable Blank, Jean Marie S Consulting Unavailable Blank, Jean Marie S Consulting Unavailable Blank, Jean Marie S Consulting Unavailable Blank, Jean Marie S Consulting Unavailable Blank, Jean Marie S Consulting Unavailable Blank, Jean Marie S Consulting Unavailable DOLCEJHONATAN Attending Unavailable MICHELLE FIGUEROA Attending Unavailable DEIDRA [...] Attending Unavailable DOLCE, JHONATAN Richardson Attending Unavailable DOLTONYA, JHONATAN Richardson Attending Unavailable FIGUEROAMICHELLE GAINES Attending Unavailable DOLCE, JHONATAN Richardson Attending Unavailable DOLCE, JHONATAN Richardson Attending Unavailable DOLCE, JHONATAN Richardson Attending Unavailable FIGUEROAMICHELLE Attending Unavailable Allergies Allergy Classification Reported Allergen(s) Allergy Type Date of Onset Reaction(s) Facility (7 sources) Aspirin; Translations: [aspirin] Drug Allergy Unknown (qualifier value) [facility] (7 sources) Aluminum aspirin Drug Allergy 3 Hives [facility] Medications Current Medications Medication Drug Class(es) [...] day(s), # 28 tab(s), Refills(s) 0, Pharmacy: [facility] 1984, 185.4, cm, 07/06/23 12:13:00 EDT, Height/Length Dosing, 109.4, kg, 07/06/23 12:13:00 EDT, Weight Dosing Start Date: 07/10/23 Stop Date: 07/24/23 Status: Ordered lisinopril 40 mg oral tablet (14 sources) Angiotensin Converting Enzyme Inhibitor Start: 07-06-2023 take 40 mg by mouth once daily Lisinopril Active 40 MG PO Daily July 25, 2023 12:00am Start: 11-26-2019 take 2 tablets by [facility] once daily lisinopril 20 mg Tab [...] Range Facility Referrals Officeon 4 Referrals Office [id number]#1.00 TIFF Normal [facility] General Message Officeon General Message Office --- --- --- --- - -- --- --- --- --- From: Lida DirectInbox To: JEAN MARIE MAST SR Sent: 07/11/23 02:31:06 AM EDT Subject: Discharge Summary Ready to View A summary regarding your recent visit is available in the Documents section of your health record. Normal [facility] Consultation Noteon 07-10-19 Consultation Note Patient: JEAN [...] Problems Asymptomatic microscopic hematuria / SNOMED CT 1749033858 / Confirmed BPH with urinary obstruction / SNOMED CT 3897601100 / Confirmed kidney stones / SNOMED CT 933371197 / Confirmed Histories Past Medical History: Active kidney stones (462573624) Resolved HTN - Hypertension (0525882320): Resolved. Gout (557648591): Resolved. Family History: Kidney stone Mother Hypertension Mother Diabetes mellitus type 2 Father Procedure history: Cysto, left ureteral stent removal, left RGP, left ureteronephroscopy with Holmium laser ablation, multiple basket extraction of stone,fragments, replacement of JJ ureteral stent under fluoroscopic guidance. on 09/08/2015 at 60 Years. Cystoscopy (82960129) on 08/04/2015 at 60 Years. Comments: 08/04/2015 17:56 EDT - Maurice ALMAGUER, Marilyn Left Stent Insertion Abdominal hernia ([id number]). Physical Examination Vital Signs 07/10/2023 12:01 EDT Heart Rate Monitored 79 bpm 07/10/2023 12:00 EDT Temperature Axillary 36.3 DegC 07/10/2023 12:00 EDT Systolic Blood Pressure 142 mmHg HI Diastolic Blood Pressure 86 mmHg 07/10/2023 7:50 EDT Temperature Axillary 36.8 DegC HI 07/09/2023 19:21 EDT Temperature Axillary 36.7 DegC 07/09/2023 15:10 EDT Temperature Axillary 36.8 DegC HI 07/09/2023 11:55 EDT Temperature Axillary 36.6 DegC [...] or not further antibiotics are needed.. Normal [facility] Comment on above: Result Comment: Elec tronically Signed By: Sadia Shannon, Jean Marie Meier\.br\Date and Time Signed: 07/10/23 14:43 EDT Discharge Instructionson Discharge Instructions [id number]#1.00 TIFF Normal [facility] Discharge Note-Nursingon Discharge Note-Nursing JEAN MARIE MAST SR, DOB:1955 Visit Date:07/06/2023 Inpatient Discharge Instructions Your Care Team Admitting Physician - Dwight Eddy DO Consulting Physician - Jean Marie Mccullough M.D DPM, Jhonatan Brandon MD, [facility]. Reason for Your Visit pt reports [...] 40 mg Tab) omeprazole (omeprazole 20 mg Cap-DR) [Image Removed: STOP]Stop taking these medications hydrochlorothiazide [...] Diagnostic Test Results Wound culture Pharmacy Information [facility] Previously Scheduled Follow-Up Appointments Sunday 3:30 PM EDT With: JAMESON SUH, Taras Duncan Where: [facility] Inpatient Clinical Summaryon 07-10-2023 Inpatient Clinical Summary [address] [address] Clinical Summary Person Information: Name: JEAN MARIE MAST SR Age: 68 Years : 1955 Sex: Male PCP: Michelle Figueroa MD Marital Status: Race: White Ethnicity: Non- or Language: Congolese Visit Id: Visit Reason: Cellulitis - Leg; Lower leg pain-swelling; SENT BY DR MARISCAL, LEG PAIN Speciality: Acuity: Enc Type: Inpatient Med Service: Medical Arrival: 07/06/2023 12:00:42 Discharge: Dispo Type: Admitted as IP to this [facility] Address: [address] [place], [place] [id number] Provider Notes: Diagnosis: 1:Cellulitis of right leg; [...] up: With: Address: When: Dixie Brandon [address] [place] [address] Business (1) Within 1 to 2 weeks Comments: Call for followup appointment With: Address: When: Jean Marie Mccullough [address] [place] [address] Business (1) 07/23/2023 1:45 PM With: Address: When: Michelle Figueroa [address] [place] [address] Business (1) 07/17/2023 10:00 AM With: Address: When: [facility]honatan [facility]cal [facility] [address], [place] [address] 07/11/2023 8:20 AM Type Location Start [facility] Office Visit [facility] 09/12/2023 3:30 PM 09/12/2023 3:45 PM Confirmed Patient Education Information: Cellulitis, Adult, Wxxb-dh-Urgv Normal [facility] Inpatient Patient Summaryon 07-10-2023 Inpatient Patient Summary [address] [address] Patient Discharge Instructions PERSON INFORMATION Name: JEAN [...] Follow up: With: Address: When: Dixie Brandon [address] [place] [address] Business (1) Within 1 to 2 weeks Comments: Call for followup appointment With: Address: When: Jean Marie Mccullough [address] [place] [address] Business (1) 07/23/2023 1:45 PM With: Address: When: Michelle Figueroa [address] [place] [address] Business (1) 07/17/2023 10:00 AM With: Address: When: Jhonatan MULLER - [facility], [facility], [address], [place] [address] 07/11/2023 8:20 AM In the event that this physician does not participate in your insurance network, please consult with your insurance company to find a nearby participating provider. Type Location Start [place]ish [place] [facility] Office [place] [facility] [place] 09/12/2023 3:30 PM 09/12/2023 3:45 PM Confirmed Comment: PRO Acevedo SR, JEAN MARIE, have received the attached patient education materials/instructions and have verbalized understanding: Patient Signature Date Clinican/Nurse Signature _ Date HERE ARE THE MEDICATION CHANGES THAT OCCURRED DURING YOUR HOSPITAL STAY New Medications [facility] 1985, [address] [facility] [place], [place] [id number], [phone] linezolid (Zyvox 600 mg Tab) 1 Tablets [...] Capsules By Mouth every day. Pharmacy Information: [facility] Comment: PATIENT EDUCATION INFORMATION Instructions: Cellulitis, Adult Cellulitis is a skin infection. The infected area is often warm, red, swollen, and sore. It occurs most often in the arms and lower legs. It is very import (more content not included)... [facility] Interdisciplinary Note - Justin e Manageron 07-10-2023 Interdisciplinary Note - Stripper Opaquer Pt is asleep in bed, no family [...] on Linzolid cost checked at pt preferred [facility], with his insurance was over $400, but with good rx will be down to $51.50 and they have in stock currently. Pt updated on cost and pt is ok with cost. Nursing updated on DC plan [facility] Comment on above: Result Comment: Elec tronically Signed By: Chasidy ALMAGUER, Alaina\.joelle\Date and Time Signed: 07/10/23 15:15 EDT Monitor Recordon 07-10-2023 Monitor Record [id number]#1.00 TIFF [facility] Monitor Record [id number]#1.00 TIFF [facility] Progress Note-Physicianon Progress Note-Physician Assessment/Plan 68-year-old [...] with IV Invanz and vancomycin. Seen by highway research engineer and had a bedside incision and drainage of blister/bullae. Status post wound dressing. MRI does not show any deep tissue abscess of bone involvement/osteomyelit is. Infectious disease consult pending. Vascular surgery consult?can be done as outpatient. Ordered: [facility] Hospital Care/Day Moderate 35 Minutes 07026 2. Wound of right ankle (S91.001A: Unspecified open wound, right ankle, initial encounter) Continue wound dressings. Wound cultures so far not isolating any organisms. Ordered: [facility] Hospital Care/Day Moderate 35 Minutes 09128 Wound Culture 3. Acute kidney injury (N17.9: Acute kidney failure, unspecified) Acute kidney injury?secondary to ATN from above infection, diuretics and lisinopril. Improved. Lisinopril and hydrochlorothiazide suspended. Treated with IV fluid. Ordered: [facility] Hospital Care/Day Moderate 35 Minutes 00934 4. Obese (E66.9: Obesity, unspecified) Recommend therapeutic lifestyle modification changes. Ordered: [facility] Hospital Care/Day Moderate 35 Minutes 13112 5. HTN (hypertension) (I10: Essential (primary) hypertension) [...] made to ensure accuracy. However inadvertent computerized product marketing programs manager errors may be present. Elvira Urena. Hospitalist. [...] stones Histori (more content not included)... Normal [facility] Comment on above: Result Comment: Elec tronically Signed By: AYANNA SUH, Elvira\.br\Date and Time Signed: 07/10/23 12:09 EDT BMPon 07-09-2023 Anion gap [Moles/Vol] 8 mmol/L Normal 6-16 [facility] Comment on above: Performed By: #### 2 [id number] #### [facility] [address] [facility] [address] Calcium [Mass/Vol] 8.2 mg/dL Low 8.9-11.1 [facility] Comment on above: Performed By: #### 2 [id number] #### [facility] [address] [place] [address] Chloride [Moles/Vol] 108 mmol/L Normal 101-111 [facility] Comment on above: Performed By: #### 2 [id number] #### [facility] [address] [place] [address] CO2 [Moles/Vol] 27 mmol/L Normal 21-31 [facility] Comment on above: Performed By: #### 2 [id number] #### [facility] [address] [place] [address] Creatinine [Mass/Vol] 1.4 mg/dL High 0.5-1.3 [facility] Comment on above: Performed By: #### 2 958344 #### [facility] [address] [place] [address] Glucose [Mass/Vol] 109 mg/dL Normal 55-199 [facility] Comment on above: Performed By: #### 2 [id number] #### [facility] [address] [facility] [address] Potassium [Moles/Vol] 3.8 mmol/L Normal 3.5-5.3 [facility] Comment on above: Performed By: #### 2 902893 #### [facility] [address] [place] [address] Sodium [Moles/Vol] 139 mmol/L Normal 135-145 [facility] Comment on above: Performed By: #### 2 [id number] #### [facility] [address] [place] [address] Urea nitrogen [Mass/Vol] 16 mg/dL Normal 5-21 [facility] Comment on above: Performed By: #### 2 [id number] #### [facility] [address] [place] [address] Urea nitrogen/Creatinine [Mass ratio] 11 No Units Normal 10-20 [facility] Comment on above: Performed By: #### 2 [id number] #### [facility] [address] [place] [address] CHEMISTRYOrdered By: SYSTEM SYSTEM on 07-09-2023 Vanco [...] Justin e Manageron 07-09-2023 Interdisciplinary Note - Stripper Opaquer Pt is out of room for MRI [...] information reviewed. CRM following for needs. Normal [facility] Comment on above: Result Comment: Elec [...] Vueway Contrast amount in ml's: 10 Normal [facility] MRI Tibia/Fibula w/ + w/o Co ntrast [...] osteomyelitis, or marrow replacing process. Joint: Large beons-be-expp imaging of the knee with degenerative changes with subchondral cystic change, probable tearing of the medial lateral meniscus, probable tearing of ACL, but overall not well evaluated on the large rfgbs-fp-yhsv. Muscle: Mild diffuse fatty infiltration of the [...] tendons grossly intact within limits of large njixx-sp-zpww. Small amount of increased fluid at the [...] Vueway Contrast amount in ml's: 10 Normal [facility] Message from Medicareon 06-20 Message from Medicare [id number]#1.00T IFF Normal [facility] Message from Medicare [id number]#1.00T IFF Normal [facility] Monitor Recordon 07-09-2023 Monitor Record [id number]#1.00 TIFF Normal [facility] Monitor Record [id number]#1.00 TIFF Normal [facility] Monitor Record [id number]#1.00 TIFF Normal [facility] Monitor Record [id number]#1.00 TIFF Normal [facility] No Panel InformationOrdered By: Maty Felix on 07-09-2023 GS No organisms seen. [facility] Wound Culture Scant growth of Staphylococcus species coagulase negative [facility] Progress Note - Pharmacyon 0 07-09-2023 [...] questions, please contact the pharmacy at extension [phone]. Age: 68 Years Allergies: aspirin Weight: Last [...] Vanco Pk: 27 mcg/mL (07/08/23 17:11:00) Normal [facility] Progress Note-Physicianon Progress Note-Physician Patient: JEAN MARIE [...] Problems Asymptomatic microscopic hematuria / SNOMED CT 6767415211 / Confirmed BPH with urinary obstruction / SNOMED CT 8566948530 / Confirmed kidney stones / SNOMED CT 123540706 / Confirmed, Active Problems (3) Asymptomatic microscopic [...] Right tibia (more content not included)... Normal [facility] Comment on above: Result Comment: Elec tronically Signed By: Jhonatan Mariscal DPM\.joelle\Date and Time Signed: 07/09/23 17:30 EDT Progress [...] Infuse over 30 minute(s), 07/09/23 12:12:00 EDT [facility] Hospital Care/Day Moderate 35 Minutes 28438 2. Wound of right ankle (S91.001A: Unspecified open wound, right ankle, initial encounter) Present during this admission. Wound culture. MRI of the foot pending. Ordered: ertapenem + Sodium Chloride 0.9% intravenous solution 50 mL, 500 mg = 0.5 EA, IV Piggyback, Daily, Routine, Start date 07/10/23 9:00:00 EDT, 100 mL/hr, Infuse over 30 minute(s), 07/09/23 12:12:00 EDT [facility] Hospital Care/Day Moderate 35 Minutes 35628 Wound Culture 3. Acute kidney injury (N17.9: Acute kidney failure, unspecified) Acute kidney injury?secondary to ATN from above infection, diuretic and lisinopril. Improved. Avoid nephrotoxic drugs. Lisinopril and hydrochlorothiazide suspended. Treated with IV fluid. Ordered: [facility] Hospital Care/Day Moderate 35 Minutes 88495 4. Obese (E66.9: Obesity, unspecified) Recommend therapeutic lifestyle modification changes. Ordered: [facility] Hospital Care/Day Moderate 35 Minutes 26207 5. HTN (hypertension) (I10: Essential (primary) hypertension) [...] made to ensure accuracy. However inadvertent computerized product marketing programs manager errors may be present. Elvira Urena. Hospitalist. [...] 109 mg/dL (07/09/23 05:12:00) BUN: 16 mg/dL (05/20/24 05:12:00) Creatinine: 1.4 mg/dL High (05 (more content not included)... Normal [facility] Comment on above: Result Comment: Elec tronically Signed By: AYANNA SUH, Elvira\.br\Date and Time Signed: 07/09/23 12:19 EDT RAD - MRI Screening Formon 0 07-09-2023 RAD - MRI Screening Form [id number]#[id number] 0TIFF Normal [facility] Vanco Troughon 07-09-2023 Vanco Tr 9 microgram/mL Low -20 [facility] Comment on above: Performed By: #### 2 [id number] ####[facility] [address] [place] [address] eGFRon 07-09-2023 eGFR 55 mL/min/1.73 m2 Low >=59 [facility] Comment on above: Order Comment: Order added by Discern Expert. Performed By: #### 1 [id number] #### [facility] [address] [place] [address] BMPon 07-08-2023 Anion gap [Moles/Vol] 10 mmol/L Normal 6-16 [facility] Comment on above: Performed By: #### 2 [id number] #### [facility] [address] [place] [address] Calcium [Mass/Vol] 8.2 mg/dL Low 8.9-11.1 [facility] Comment on above: Performed By: #### 2 390161 #### [facility] [address] [place] [address] Chloride [Moles/Vol] 107 mmol/L Normal 101-111 [facility] Comment on above: Performed By: #### 2 470284 #### [facility] [address] [place] [address] CO2 [Moles/Vol] 25 mmol/L Normal 21-31 [facility] Comment on above: Performed By: #### 2 [id number] #### [facility] [address] [place] [address] Creatinine [Mass/Vol] 1.4 mg/dL High 0.5-1.3 [facility] Comment on above: Performed By: #### 2 [id number] #### [facility] [address] [place] [address] Glucose [Mass/Vol] 110 mg/dL Normal 55-199 [facility] Comment on above: Performed By: #### 2 [id number] #### [facility] [address] [place] [address] Potassium [Moles/Vol] 3.9 mmol/L Normal 3.5-5.3 [facility] Comment on above: Performed By: #### 2 [id number] #### [facility] [address] [place] [address] Sodium [Moles/Vol] 138 mmol/L Normal 135-145 [facility] Comment on above: Performed By: #### 2 020412 #### [facility] [address] [place] [address] Urea nitrogen [Mass/Vol] 21 mg/dL Normal 5-21 [facility] Comment on above: Performed By: #### 2 [id number] #### [facility] [address] [place] [address] Urea nitrogen/Creatinine [Mass ratio] 15 No Units Normal 10-20 [facility] Comment on above: Performed By: #### 2 [id number] #### [facility] [address] [place] [address] CHEMISTRYOrdered By: SYSTEM SYSTEM on 07-08-2023 Vanco [...] Male : 1955 Associated Diagnoses: None Author: Yanira CLANCY, Jhonatan Richardson Subjective Patient was admitted directly from the [...] Problems Asymptomatic microscopic hematuria / SNOMED CT 0410557928 / Confirmed BPH with urinary obstruction / SNOMED CT 7618026730 / Confirmed kidney stones / SNOMED CT 073284024 / Confirmed, Active Problems (3) Asymptomatic microscopic hematuria BPH with urinary obstruction kidney stones Objective Measurements from flowsheet : Measurements 07/08/2023 6:00 EDT Weight Measured 108.6 kg Vital Signs (last 24 hrs) Last Charted Temp Axillary 36.7 DegC (JULY 07:) Heart Rate Monitored 81 bpm (JULY 07:26) SBP H 146 mmHg (JULY 07:) DBP 79 mmHg (JULY 07:25) Weight 108.6 kg (JULY 07:00) General: Alert [...] his tib-fib (more content not included)... Normal [facility] Comment on above: Result Comment: Elec tronically Signed By: Yanira CLANCY, Jhonatan Richardson\.br\Date and Time Signed: 07/08/23 09:52 EDT Monitor Recordon 07-08-2023 Monitor Record [id number]#1.00 TIFF Normal [facility] Progress Note-Physicianon Progress Note-Physician Subjective Day 3 [...] control as needed Last for a.m. Ordered: [facility] Hospital Care/Day Moderate 35 Minutes 79851 2. Acute kidney injury (N17.9: Acute kidney failure, unspecified) Serum creatinine down to 1.4 FENa from yesterday was 1.8; may be intrinsic and he was taking HCTZ, lisinopril and Mobic in the outpatient setting which all have been held Ordered: [facility] Hospital Care/Day Moderate 35 Minutes 46335 Orders: Basic Metabolic Panel eGFR Extra Lav [...] mg= 1 (more content not included)... Normal [facility] Comment on above: Result Comment: Elec tronically Signed By: Dwight Eddy DO.br\Date and Time Signed: 07/08/23 12:44 EDT Vanco Peakon 07-08-2023 Vanco Pk 27 microgram/mL Normal 20-40 [facility] Comment on above: Order Comment: pleas e draw one hour after vancomycin infusion is complete Performed By: #### 2 [id number] #### [facility] [address] [place] [address] XR Foot 3+ Views Righton XR Foot [...] mGy = . DAP = . Normal [facility] XR Tib/Fib Right 2 Viewon XR Tib/Fib [...] Signed by: Ferdinand Catalan MD Transcribed by: DP Technologist: ALENA, Technical Comments Radiation Dose: Ka,r in mGy = . DAP = . Normal [facility] eGFRon 07-08-2023 eGFR 55 mL/min/1.73 m2 Low >=59 [facility] Comment on above: Order Comment: Order added by Discern Expert. Performed By: #### 1 [id number] #### [facility] [address] [place] [address] BMPon 07-07-2023 Anion gap [Moles/Vol] 10 mmol/L Normal 6-16 [facility] Comment on above: Performed By: #### 2 [id number] #### [facility] [address] [place] [address] Calcium [Mass/Vol] 8.2 mg/dL Low 8.9-11.1 [facility] Comment on above: Performed By: #### 2 794263 #### [facility] [address] [place] [address] Chloride [Moles/Vol] 106 mmol/L Normal 101-111 [facility] Comment on above: Performed By: #### 2 [id number] #### [facility] [facility] [address] [place] [address] CO2 [Moles/Vol] 25 mmol/L Normal 21-31 [facility] Comment on above: Performed By: #### 2 [id number] #### [facility] [address] [place] [address] Creatinine [Mass/Vol] 1.6 mg/dL High 0.5-1.3 [facility] Comment on above: Performed By: #### 2 [id number] #### [facility] [address] [place] [address] Glucose [Mass/Vol] 103 mg/dL Normal 55-199 [facility] Comment on above: Performed By: #### 2 [id number] #### [facility] [address] [place] [address] Potassium [Moles/Vol] 3.7 mmol/L Normal 3.5-5.3 [facility] Comment on above: Performed By: #### 2 [id number] #### [facility] [address] [place] [address] Sodium [Moles/Vol] 137 mmol/L Normal 135-145 [facility] Comment on above: Performed By: #### 2 [id number] #### [facility] [address] [place] [address] Urea nitrogen [Mass/Vol] 27 mg/dL High 5-21 [facility] Comment on above: Performed By: #### 2 [id number] #### [facility] [address] [place] [address] Urea nitrogen/Creatinine [Mass ratio] 17 No Units Normal 10-20 [facility] Comment on above: Performed By: #### 2 [id number] #### [facility] [address] [place] [address] CBC w/ Auto Diffon 4 Basophils/100 WBC (Bld) 0.5 % Normal 0.0-2.0 [facility] Comment on above: Performed By: #### 2 [id number] #### [facility] [address] [place] [address] Basophils/Leukocytes Auto (Bld) [Pure # fraction] 0.0 E9/L Normal 0.0-0.2 [facility] Comment on above: Performed By: #### 2 [id number] #### [facility] [address] [place] [address] Eosinophils (Bld) [#/Vol] 0.2 E9/L Normal 0.0-0.5 [facility] Comment on above: Performed By: #### 2 [id number] #### [facility] [address] [place] [address] Eosinophils/100 WBC (Bld) 3.0 % Normal 0.0-8.0 [facility] Comment on above: Performed By: #### 2 [id number] #### [facility] [address] [place] [address] Erythrocyte distribution width (RBC) [Ratio] 13.6 % Normal 10.9-14.2 [facility] Comment on above: Performed By: #### 2 [id number] #### [facility] [address] [place] [address] Hematocrit (Bld) [Volume fraction] 40.6 % Normal 37.7-49.0 [facility] Comment on above: Performed By: #### 2 167263 #### [facility] [address] [place] [address] Hemoglobin (Bld) [Mass/Vol] 13.8 g/dL Normal 13.5-17.5 [facility] Comment on above: Performed By: #### 2 983254 #### [facility] [address] [place] [address] Lymphocytes (Bld) [#/Vol] 1.7 E9/L Normal 1.0-4.0 [facility] Comment on above: Performed By: #### 2 499254 #### [facility] [address] [place] [address] Lymphocytes/100 WBC (Bld) 20.4 % Normal 14.0-50.0 [facility] Comment on above: Performed By: #### 2 985401 #### [facility] [address] [place] [address] MCH (RBC) [Entitic mass] 32.2 pg Normal 27.0-34.0 [facility] Comment on above: Performed By: #### 2 153634 #### [facility] [address] [place] [address] MCHC (RBC) [Mass/Vol] 34.1 g/dL Normal 31.4-36.0 [facility] Comment on above: Performed By: #### 2 [id number] #### [facility] [address] [place] [address] MCV (RBC) [Entitic vol] 94.5 fL Normal 80.0-100.0 [facility] Comment on above: Performed By: #### 2 349174 #### [facility] [address] [place] [address] Monocytes (Bld) [#/Vol] 0.5 E9/L Normal 0.2-1.0 [facility] Comment on above: Performed By: #### 2 [id number] #### [facility] [address] [place] [address] Neutrophils (Bld) [#/Vol] 5.7 E9/L Normal 2.0-7.5 [facility] Comment on above: Performed By: #### 2 [id number] #### [facility] [address] [place] [address] Neutrophils/100 WBC (Bld) 69.7 % Normal 36.0-75.0 [facility] Comment on above: Performed By: #### 2 625419 #### [facility] [address] [place] [address] Platelet mean volume (Bld) [Entitic vol] 8.6 fL Normal 6.4-10.8 [facility] Comment on above: Performed By: #### 2 300255 #### [facility] [address] [place] [address] Platelets (Bld) [#/Vol] 205.0 E9/L Normal 150.0-500.0 [facility] Comment on above: Performed By: #### 2 050843 #### [facility] [address] [place] [address] RBC (Bld) [#/Vol] 4.3 E12/L Normal 4.3-5.9 [facility] Comment on above: Performed By: #### 2 058538 #### [facility] [address] [place] [address] WBC corrected for nucl RBC Auto (Bld) [#/Vol] 8.1 E9/L Normal 4.0-11.0 [facility] Comment on above: Performed By: #### 2 395627 #### [facility] [address] [place] [address] CHEMISTRYOrdered By: SYSTEM SYSTEM on 07-07-2023 Anion [...] Monitor Recordon 07-07-2023 Monitor Record [id number]#1.00 TIFF Normal [facility] Monitor Record [id number]#1.00 TIFF Normal [facility] Monitor Record [id number]#1.00 TIFF Normal [facility] Monitor Record [id number] TIFF Normal [facility] Monitor Record [id number]#1.00 TIFF Normal [facility] Monitor Record [id number]#1.00 TIFF Normal [facility] Progress Note-Physicianon Progress Note-Physician Subjective Detail vancomycin [...] 05:35:00) Lymph Auto: 20.4 % (07/07/23 05:35:00) Preble Auto: 6.4 % (07/07/23 05:35:00) Eos Auto: 3 % (07/07/23 05:35:00) Basophil Auto: 0.5 % (07/07/23 05:35:00) Neutro Absolute: 5.7 E9/L (07/07/23 05:35:00) Lymph Absolute: 1.7 E9/L (07/07/23 05:35:00) Preble Absolute: 0.5 E9/L (07/07/23 05:35:00) Eos Absolute: [...] Ordered: Initial Hospital Care/Day Moderate 55 Minutes 84299 2. Acute kidney injury (N17.9: Acute kidney failure, unspecified) FENa 1.8 which may be intrinsic; patient was taking HCTZ and lisinopril which had been held and he was also taking Mobic Creatinine down to 1.6 Continue to trend Ordered: Initial Hospital Care/Day Moderate 55 Minutes 30950 Orders: acetaminophen, 650 mg = 2 tab(s), Tab, Oral, q6hr PRN Pain, Routine, Start date 07/06/23 16:49:00 EDT, 07/06/23 16:49:00 EDT Al hydroxide/Mg hydroxide/simethicone, 30 mL, Susp-Or (more content not included)... Normal [facility] Comment on above: Result Comment: Elec tronically Signed By: Dwight Eddy DO\.br\Date and Time Signed: 07/07/23 14:55 EDT eGFRon 07-07-2023 eGFR 47 mL/min/1.73 m2 Low >=59 [facility] Comment on above: Order Comment: Order added by Discern Expert. Performed By: #### 1 [id number] #### [facility] [address] [place] [address] BMPon 07-06-2023 Anion gap [Moles/Vol] 12 mmol/L Normal 6-16 [facility] Comment on above: Performed By: #### 2 790448 #### [facility] [address] [place] [address] Calcium [Mass/Vol] 8.6 mg/dL Low 8.9-11.1 [facility] Comment on above: Performed By: #### 2 425751 #### [facility] [address] [place] [address] Chloride [Moles/Vol] 104 mmol/L Normal 101-111 [facility] Comment on above: Performed By: #### 2 135272 #### [facility] [address] [place] [address] CO2 [Moles/Vol] 25 mmol/L Normal 21-31 [facility] Comment on above: Performed By: #### 2 741509 #### [facility] [address] [place] [address] Creatinine [Mass/Vol] 1.8 mg/dL High 0.5-1.3 [facility] Comment on above: Performed By: #### 2 499407 #### [facility] [address] [place] [address] Glucose [Mass/Vol] 111 mg/dL Normal 55-199 [facility] Comment on above: Performed By: #### 2 603615 #### [facility] [address] [place] [address] Potassium [Moles/Vol] 3.5 mmol/L Normal 3.5-5.3 [facility] Comment on above: Performed By: #### 2 934796 #### [facility] [address] [place] [address] Sodium [Moles/Vol] 137 mmol/L Normal 135-145 [facility] Comment on above: Performed By: #### 2 [id number] #### [facility] [address] [place] [address] Urea nitrogen [Mass/Vol] 29 mg/dL High 5-21 [facility] Comment on above: Performed By: #### 2 487469 #### [facility] [address] [place] [address] Urea nitrogen/Creatinine [Mass ratio] 16 No Units Normal 10-20 [facility] Comment on above: Performed By: #### 2 101646 #### [facility] [address] [place] [address] CBC w/ Auto Diffon 4 Basophils/100 WBC (Bld) 0.4 % Normal 0.0-2.0 [facility] Comment on above: Performed By: #### 2 056021 #### [facility] [address] [place] [address] Basophils/Leukocytes Auto (Bld) [Pure # fraction] 0.0 E9/L Normal 0.0-0.2 [facility] Comment on above: Performed By: #### 2 462043 #### [facility] [address] [place] [address] Eosinophils (Bld) [#/Vol] 0.2 E9/L Normal 0.0-0.5 [facility] Comment on above: Performed By: #### 2 129790 #### [facility] [address] [place] [address] Eosinophils/100 WBC (Bld) 2.8 % Normal 0.0-8.0 [facility] Comment on above: Performed By: #### 2 876875 #### [facility] [address] [place] [address] Erythrocyte distribution width (RBC) [Ratio] 13.9 % Normal 10.9-14.2 [facility] Comment on above: Performed By: #### 2 251206 #### [facility] [address] [place] [address] Hematocrit (Bld) [Volume fraction] 46.2 % Normal 37.7-49.0 [facility] Comment on above: Performed By: #### 2 688908 #### [facility] [address] [place] [address] Hemoglobin (Bld) [Mass/Vol] 15.6 g/dL Normal 13.5-17.5 [facility] Comment on above: Performed By: #### 2 896418 #### [facility] [address] [place] [address] Lymphocytes (Bld) [#/Vol] 1.3 E9/L Normal 1.0-4.0 [facility] Comment on above: Performed By: #### 2 367406 #### [facility] [address] [place] [address] Lymphocytes/100 WBC (Bld) 18.3 % Normal 14.0-50.0 [facility] Comment on above: Performed By: #### 2 266776 #### [facility] [address] [place] [address] MCH (RBC) [Entitic mass] 32.2 pg Normal 27.0-34.0 [facility] Comment on above: Performed By: #### 2 687383 #### [facility] [address] [place] [address] MCHC (RBC) [Mass/Vol] 33.7 g/dL Normal 31.4-36.0 [facility] Comment on above: Performed By: #### 2 822547 #### [facility] [address] [place] [address] MCV (RBC) [Entitic vol] 95.3 fL Normal 80.0-100.0 [facility] Comment on above: Performed By: #### 2 878386 #### [facility] [address] [place] [address] Monocytes (Bld) [#/Vol] 0.6 E9/L Normal 0.2-1.0 [facility] Comment on above: Performed By: #### 2 297884 #### [facility] [address] [place] [address] Neutrophils (Bld) [#/Vol] 4.9 E9/L Normal 2.0-7.5 [facility] Comment on above: Performed By: #### 2 368899 #### [facility] [address] [place] [address] Neutrophils/100 WBC (Bld) 70.2 % Normal 36.0-75.0 [facility] Comment on above: Performed By: #### 2 478712 #### [facility] [address] [place] [address] Platelet 189.0 E9/L Normal 150.0-500.0 [facility] Comment on above: Performed By: #### 2 470546 #### [facility] [address] [place] [address] Platelet mean volume (Bld) [Entitic vol] 8.5 fL Normal 6.4-10.8 [facility] Comment on above: Performed By: #### 2 591514 #### [facility] [address] [place] [address] RBC (Bld) [#/Vol] 4.8 E12/L Normal 4.3-5.9 [facility] Comment on above: Performed By: #### 2 674998 #### [facility] [address] [place] [address] WBC corrected for nucl RBC Auto (Bld) [#/Vol] 7.0 E9/L Normal 4.0-11.0 [facility] Comment on above: Performed By: #### 2 115321 #### [facility] [address] [place] [address] CHEMISTRYOrdered By: SYSTEM SYSTEM on 07-06-2023 Sodium [Moles/Vol] 127 mmol/L Invalid Interpretation Code Remisol Chem U Creatinine 93.5 mg/dL Invalid Interpretation Code Remisol Chem Lactic Acid Lvl 1.0 mmol/L Normal 0.5 - 2.2 mmol/L Remisol Chem Consent for Treatmenton 06-19 Consent for Treatment [id number]#1.00T IFF Normal [facility] ED Clinical Summaryon 2023 ED Clinical Summary (Inserted Image. Denisha ble to display) [address] [address] ED Clinical Summary Person Information Name: JEAN MARIE MAST SR[facility] Age: 68 Years : 1955 Sex: Male Language: Congolese PCP: Michelle Figueroa MD Marital Status: Visit Id: Visit Reason: Cellulitis - Leg; Lower leg pain-swelling; SENT BY DR MARISCAL, LEG PAIN Speciality: Acuity: 3 Enc Type: Inpatient Med Service: Emergency Arrival: 07/06/2023 12:00:42 Discharge: LOS: 000 03:16 Checkin: 07/06/2023 12:00:42 Checkout: 07/06/2023 15:16:48 Dispo Type: Admitted as IP to this [facility] EVENTS: Event Name Event Status Request Date/Time [...] 14:38:53 Patient Care Request 07/06/2023 14:38:53 ADDRESS: [address] [place] [id number] [facility] DOC NOTES: MEDICAL INFORMATION: Prescriptions Given: Medications [...] up: DIAGNOSIS: 1:Cellulitis of right leg Normal [facility] ED Note-Physicianon 07-06-19 ED Note-Physician Basic Information [...] made to ensure accuracy, however, inadvertently computerized product marketing programs manager mistakes may be present. Appropriate healthcare PPE [...] mg= 1 (more content not included)... Normal [facility] Comment on above: Result Comment: Elec tronically Signed By: Franki Elias PA-C\.br\Date and Time Signed: 07/06/23 14:52 EDT\.br\Electronically Co-Signed By: Arnel Modi DO\.br\Date and Time Co-Signed: 07/06/23 15:54 EDT ED Patient Education Noteon 07-06-2023 ED Patient Education Note Normal [facility] ED Patient Summaryon 024 ED Patient Summary (Inserted Image. Denisha ble to display) [place] [id number] Patient Discharge Instructions Person Information Name: JEAN MARIE MAST SR Age: 68 Years Arrival Date: 07/06/2023 12:00:42 Discharge Diagnosis: 1:Cellulitis of right leg Primary Care Physician: Michelle Figueroa MD Provider Information Primary Provider: Arnel Modi DO Advanced Manager Reading:Franki Elias PA-C The exam and treatment you received in the Emergency Department were for an urgent problem and are not intended as complete care. It is important that you follow up with a doctor, nurse practitioner, or physician?s credit assistant for ongoing care. If your symptoms become worse or you do not improve as expected and you are unable to reach your usual health care provider, you should return to the Emergency Department. We are available 24 hours a day. [employer] JEAN MARIE has been given the following list of [...] opioids can be used to help relieve mnauposa-ji-shyrgb pain and are often prescribed following a [...] be struggling with addiction, tell your health acute care physician and ask for guidance or call [facility] National Helpline at 9-826-741-CYHV. f Source: [place] Department of Health and Human Services/Center for Disease Control & Prevention [facility] Medications Given: Medicati (more content not included)... Normal [facility] HEMATOLOGYOrdered By: SYSTEM SYSTEM on 07-06-2023 Basophils/100 [...] Lactic Acid Lvl 1.0 mmol/L Normal 0.5-2.2 [facility] Comment on above: Performed By: #### 2 [id number] #### [facility] [address] [place] [address] No Panel InformationOrdered By: ANGPROCESSSERVER MICROBIOLOGY on 07-06-2023 Blood Culture Charcoal No growth at 4 da ys. Final to follow at 7 days. [facility] Blood Culture Charcoal No growth at 4 da ys. Final to follow at 7 days. [facility] Progress Note - Pharmacyon 0 07-06-2023 [...] questions please contact the pharmacy at extension [phone]. Age: 68 Years Allergies: aspirin Weight: Last [...] 12:34:00) Lymph Auto: 18.3 % (07/06/23 12:34:00) Preble Auto: 8.3 % (07/06/23 12:34:00) Eos Auto: 2.8 % (07/06/23 12:34:00) Basophil Auto: 0.4 % (07/06/23 12:34:00) Neutro Absolute: 4.9 E9/L (07/06/23 12:34:00) Lymph Absolute: 1.3 E9/L (07/06/23 12:34:00) Preble Absolute: 0.6 E9/L (07/06/23 12:34:00) Eos Absolute: 0.2 E9/L (07/06/23 12:34:00) Basophil Absolute: 0 E9/L (07/06/23 12:34:00) Glucose Lvl: 111 mg/dL (07/06/23 12:34:00) BUN: [...] Acid Lvl: 1 mmol/L (07/06/23 12:34:00) Normal [facility] U Creatinineon 07-06-2023 U Creatinine 93.5 mg/dL Invalid Interpretation Code [facility] Comment on above: Performed By: #### 2 [id number] #### [facility] [address] [place] [address] U Sodiumon 07-06-2023 Sodium [Moles/Vol] 127 mmol/L Invalid Interpretation Code [facility] Comment on above: Performed By: #### 2 [id number] #### [facility] [address] [place] [address] URINALYSISOrdered By: SYSTEM SYSTEM on 07-06-2023 Bilirubin [...] that meet specific criteria set forth by [facility]. Glucose Ql (U) Negative Normal Negativemg/d [...] PM) Invalid Interpretation Code 1.005 - 1.030 [facility] UA Auto SS Urobilinogen (U) [Mass/Vol] Negative Normal Negativemg/d L [facility] UA Auto SS URINALYSISOrdered By: Gregor Gary on 07-06-2023 UA Spec Desc Random Urine (07/06/23 8:20 PM) Normal [facility] [place] Auto SS Work Phone: Urinalysis with Microon 06-19 Bilirubin Ql (U) Negative Normal Negative [facility] Comment on above: Performed By: #### 4 [id number] #### [facility] [address] [place] [address] Clarity (U) Clear Normal Clear [facility] Comment on above: Performed By: #### 4 [id number] #### [facility] [address] [place] [address] Color (U) Light-Yellow Normal Yellow [facility] Comment on above: Result Comment: Micr oscopic readings are only performed on those samples that meet specific criteria set forth by [facility]. Performed By: #### 4 [id number] #### [facility] [address] [place] [address] Glucose Ql (U) Negative Normal Negative [facility] Comment on above: Performed By: #### 4 [id number] #### [facility] [address] [place] [address] Hemoglobin Auto test strip (U) [Mass/Vol] Negative Normal Negative [facility] Comment on above: Performed By: #### 4 [id number] #### [facility] [address] [place] [address] Ketones Auto test strip Ql (U) Negative Normal Negative [facility] Comment on above: Performed By: #### 4 [id number] #### [facility] [address] [place] [address] Leukocyte esterase Auto test strip Ql (U) Negative Normal Negative [facility] Comment on above: Performed By: #### 4 [id number] #### [facility] [address] [place] [address] Nitrite Auto test strip Ql (U) Negative Normal Negative [facility] Comment on above: Performed By: #### 4 [id number] #### [facility] [address] [place] [address] pH (U) 5.5 [pH] Invalid Interpretation Code 5.0-9.0 [facility] Comment on above: Performed By: #### 4 [id number] #### [facility] [address] [place] [address] Protein Ql (U) Trace Abnormal Negative [facility] Comment on above: Performed By: #### 4 [id number] #### [facility] [address] [place] [address] Specific gravity (U) [Rel density] 1.020 Invalid Interpretation Code 1.005-1.030 [facility] Comment on above: Performed By: #### 4 [id number] #### [facility] [address] [place] [address] Urobilinogen (U) [Mass/Vol] Negative Normal Negative [facility] Comment on above: Performed By: #### 4 [id number] #### [facility] [address] [place] [address] Type of Urine collection method Random Urine Normal [facility] Comment on above: Performed By: #### 4 [id number] #### [facility] [address] [place] [address] eGFRon 07-06-2023 eGFR 41 mL/min/1.73 m2 Low >=59 [facility] Comment on above: Order Comment: Order added by Discern Expert. Performed By: #### 1 [id number] #### [facility] [address] [place] [address] [place] LE Venous Duplex Righton 07-04-2023 US [...] Fernando Madrid MD Transcribed by: LALY Technologist: KR [facility] Consent for Treatmenton 06-19 Consent for Treatment [id number]#1.00T IFF [facility] Physician Orderon 07-03-2023 Physician Order [id number]#1.00TI FF [facility] Consenton 08-15-2022 Consent [id number]#1.00 CD:127 [facility] In office Testingon 08-16-19 23 In office Testing [id number]#1.00 CD:127 [facility] Registrationon 08-15-2022 Registration [id number]#1.00 CD:127 [facility] CHEMISTRYOrdered By: SYSTEM SYSTEM on 11-15-2021 Prostate specific Ag [Mass/Vol] 0.8 ng/mL Normal 0.1 - 3.5 ng/mL [facility] [place] Vital Signs Date Time Vital Sign Value Performing Clinician Facility 08-15-2023 14:53-0400 Body height 185.42 cm [facility] 08-15-2023 14:53-0400 Body mass index (BMI) [Ratio] 31.4 kg/m2 [facility] 08-15-2023 14:53-0400 Body temperature 97.5 [degF] [facility] 08-15-2023 14:53-0400 Body weight 108 [facility] [facility] 08-15-2023 14:53-0400 Diastolic blood pressure 87 mm[Hg] [facility] 08-15-2023 14:53-0400 Heart rate 75 /min [facility] 08-15-2023 14:53-0400 Systolic blood pressure 135 mm[Hg] [facility] 07-25-2023 13:54-0400 Body height 185.42 cm [facility] 07-25-2023 13:54-0400 Body mass index (BMI) [Ratio] 31.6 kg/m2 [facility] 07-25-2023 13:54-0400 Body temperature 98.6 [degF] [facility] 07-25-2023 13:54-0400 Body weight 108.86 kg [facility] 07-25-2023 13:54-0400 Diastolic blood pressure 79 mm[Hg] [facility] 07-25-2023 13:54-0400 Heart rate 52 /min [facility] 07-25-2023 13:54-0400 Systolic blood pressure 142 mm[Hg] [facility] 07-10-2023 13:15-0400 Hourly Rounding Dwight Orellanaer [facility] 07-10-2023 12:29-0400 Hourly Rounding Dwight Boxcker [facility] 07-10-2023 12:29-0400 Promise to Return Dwight Surjit [facility] 07-10-2023 12:01-0400 Heart rate 79 /min Dwight Boxcker [facility] 07-10-2023 12:01-0400 SaO2% (BldA) [Mass fraction] 95 % Dwight Surjit [facility] 07-10-2023 12:00-0400 Body temperature 97.34 [degF] Dwight Surjit [facility] 07-10-2023 12:00-0400 Diastolic blood pressure 86 mm[Hg] Dwight Surjit [facility] 07-10-2023 12:00-0400 Mean blood pressure 105 mm[Hg] Dwight Orellanaer [facility] 07-10-2023 12:00-0400 Systolic blood pressure 142 mm[Hg] Dwight Orellanaer [facility] 07-10-2023 11:11-0400 Hourly Rounding Dwight Orellanaer [facility] 07-10-2023 11:11-0400 Promise to Return Dwight Eddy [facility] 07-10-2023 10:08-0400 Promise to Return Dwight Orellanaer [facility] 07-10-2023 07:51-0400 Heart rate 74 /min Dwight Orellanaer [facility] 07-10-2023 07:51-0400 SaO2% (BldA) [Mass fraction] 94 % Dwight Orellanaer [facility] 07-10-2023 07:50-0400 Diastolic blood pressure 81 mm[Hg] Dwight Orellanaer [facility] 07-10-2023 07:50-0400 Mean blood pressure 106 mm[Hg] Dwight Orellanaer [facility] 07-10-2023 07:50-0400 Systolic blood pressure 154 mm[Hg] Dwight Orellanaer [facility] 07-10-2023 07:50-0400 Body temperature 98.24 [degF] Dwight Orellanaer [facility] 07-10-2023 00:10-0400 Blood Pressure Location Dwight Orellanaer [facility] 07-10-2023 00:10-0400 Body temperature 98.24 [degF] Dwight Orellanaer [facility] 07-10-2023 00:10-0400 Diastolic blood pressure 69 mm[Hg] Dwight Orellanaer [facility] 07-10-2023 00:10-0400 Heart rate 83 /min Dwight Orellanaer [facility] 07-10-2023 00:10-0400 Mean blood pressure 92 mm[Hg] Dwight Orellanaer [facility] 07-10-2023 00:10-0400 Respiratory rate 18 /min Dwight Orlelanaer [facility] 07-10-2023 00:10-0400 SaO2% (BldA) [Mass fraction] 93 % Dwight Orellanaer [facility] 07-10-2023 00:10-0400 Systolic blood pressure 139 mm[Hg] Dwight Orellanaer [facility] 07-09-2023 19:25-0400 Heart rate 80 /min Dwight Orellanaer [facility] 07-09-2023 19:21-0400 Respiratory rate 16 /min Dwight Eddy [facility] 07-09-2023 19:21-0400 Body temperature 98.06 [degF] Dwight Orellanaer [facility] 07-09-2023 19:21-0400 Mean blood pressure 91 mm[Hg] Dwight Orellanaer [facility] 07-09-2023 05:51-0400 Blood Pressure Location Dwight Orellanaer [facility] 07-09-2023 05:51-0400 Body temperature 98.24 [degF] Dwight Orellanaer [facility] 07-09-2023 05:51-0400 Heart rate 73 /min Dwight Eddy [facility] 07-09-2023 05:51-0400 Mean blood pressure 96 mm[Hg] Dwight Eddy [facility] 07-09-2023 05:51-0400 Respiratory rate 18 /min Dwight Eddy [facility] 07-09-2023 00:10-0400 Blood Pressure Location Dwight Eddy [facility] 07-09-2023 00:10-0400 Body temperature 98.42 [degF] Dwight Eddy [facility] 07-09-2023 00:10-0400 Heart rate 69 /min Dwight Eddy [facility] 07-09-2023 00:10-0400 Mean blood pressure 91 mm[Hg] Dwight Eddy [facility] 04-02-2023 13:09-0500 Body height 185.4 cm Gerald Padilla MD Work Phone: [facility] 04-02-2023 13:09-0500 Body mass index (BMI) [Ratio] 31.14 kg/m2 Gerald Padilla MD Work Phone: [facility] 04-02-2023 13:09-0500 Body weight 107.05 kg Gerald Padilla MD Work Phone: [facility] 04-02-2023 13:09-0500 Diastolic blood pressure 77 mm[Hg] Gerald Padilla MD Work Phone: [facility] 04-02-2023 13:09-0500 Systolic blood pressure 137 mm[Hg] Gerald Padilla MD Work Phone: [facility] 03-21-2023 14:55-0500 Body height 185.4 cm Cynthia Henderson DO Work Phone: [facility] 03-21-2023 14:55-0500 Body mass index (BMI) [Ratio] 31.14 kg/m2 Cynthia Pocos DO Work Phone: [facility] 03-21-2023 14:55-0500 Body weight 107.05 kg Cynthia Lopezos DO Work Phone: [facility] 11-21-2021 08:55-0400 Blood Pressure Location Taras BARBA [facility] 11-21-2021 08:55-0400 Diastolic blood pressure 111 mm[Hg] Taras BARBA [facility] 11-21-2021 08:55-0400 Heart rate 73 /min Taras BARBA [facility] 11-21-2021 08:55-0400 Respiratory rate 16 /min Taras BARBA [facility] 11-21-2021 08:55-0400 Systolic blood pressure 148 mm[Hg] Taras BARBA [facility] Encounters Encounter Date Encounter Type Care Provider Facility Start: 09-12-2023 ambulatory Taras BARBA Facility :[facility] Start: 08-16-2023 End: 08-16-2023 ambulatory MICHELLE FIGUEROA Not Available Start: 08-16-2023 End: 08-16-2023 ambulatory Jose Manuel Figueroa Facility:[facility] Start: 08-15-2023 End: 08-15-2023 ambulatory [facility] Work Phone: Start: 08-15-2023 End: 08-15-2023 Patient encounter procedure [facility] Work Phone: Start: 08-06-2023 End: 08-07-2023 Pre-admission assessment Dixie Brandon [facility] Start: 07-27-2023 End: 07-27-2023 ambulatory JHONATAN D DOLCE Not Available Start: 07-25-2023 End: 07-25-2023 ambulatory [facility] Work Phone: Start: 07-25-2023 End: 07-25-2023 Patient encounter procedure [facility] Work Phone: Start: 07-18-2023 End: 07-18-2023 ambulatory JHONATAN D DOLCE Not Available Start: 07-17-2023 End: 07-17-2023 ambulatory MICHELLE FIGUEROA Not Available Start: 07-11-2023 End: 07-11-2023 ambulatory JHONATAN D DOLCE Not Available Start: 07-06-2023 End: 07-10-2023 Evaluation and management of inpatient Jhonatan D Dolce [place] Start: 07-06-2023 Emergency department patient visit Arnel Modi [place] Start: 07-06-2023 End: 07-10-2023 Evaluation and management of inpatient Dwight BarlowArti Eddy [facility] Start: 07-04-2023 End: 07-04-2023 ambulatory JHONATAN D DOLCE Not Available Start: 07-03-2023 End: 07-04-2023 ambulatory Jhonatan D Dolce [place] Start: 07-03-2023 End: 07-03-2023 Patient encounter procedure Jhonatan D Dolce [facility] Start: 07-03-2023 End: 07-03-2023 ambulatory JHONATAN D DOLCE Not Available Start: 06-26-2023 End: 06-26-2023 ambulatory MICHELE A PLEASNICK Not Available Start: 06-19-2023 End: 06-19-2023 ambulatory MICHELE A PLEASNICK Not Available Start: 06-12-2023 End: 06-12-2023 ambulatory MICHELE A PLEASNICK Not Available Start: 06-04-2023 End: 06-05-2023 ambulatory LIZBETH REYES Not Available Start: 05-22-2023 End: 05-22-2023 ambulatory MICHELE MERRITT Not Available Start: 05-15-2023 End: 05-15-2023 ambulatory LIZBETH JONESKASIASixto Not Available Start: 05-07-2023 End: 05-08-2023 ambulatory [...] Bamboo flowsheet Gerald martinez MD Work Phone: [facility] Start: 04-02-2023 Bamboo flowsheet Gerald martinez MD [facility] Start: 04-02-2023 End: 04-02-2023 Office outpatient new 30 minutes Gerald Padilla MD Work Phone: [facility] Comment on above: Bilateral tinnitus ( Primary Dx); Sensorineural hearing loss (SNHL), bilateral Start: 04-02-2023 End: 04-02-2023 ambulatory GERALD PADILLA Not Available Start: 03-30-2023 Chart abstracting Gerald rodriguez MD Work Phone: [facility] Start: 03-26-2023 Chart abstracting Rafael Poco s DO Work Phone: [facility] Start: 03-21-2023 End: 03-21-2023 ambulatory CYNTHIA Parrish POCTEJINDER Not Available Start: 03-21-2023 End: 03-21-2023 Patient encounter procedure Cynthia Henderson DO Work Phone: [facility] Comment on above: Hip pain, bilateral (Primary Dx); Left hip pain; Lumbar spondylosis; Degeneration of lumbar intervertebral disc; Trochanteric bursitis of both hips; Left hip impingement syndrome; Right hip impingement syndrome Start: 03-21-2023 End: 03-21-2023 ambulatory CYNTHIA Parrish POCTEJINDER Not Available Start: 03-20-2023 End: 03-20-2023 ambulatory DEIDRA Meier MONTOYA Not Available Start: 03-13-2023 End: 03-13-2023 ambulatory MICHELLE Barlow FIGUEROA Not Available Start: 02-27-2023 End: 02-27-2023 ambulatory JHONATAN D DOLCE Not Available Start: 02-09-2023 End: 02-09-2023 ambulatory JHONATAN D DOLCE Not Available Start: 08-15-2022 End: 08-16-[address] [facility] Start: 11-21-2021 End: 11-21-2021 Patient encounter procedure Taras BARBA [facility] Start: 11-15-2021 End: 11-15-2021 Patient encounter procedure Taras BARBA [facility] Procedures Date Procedure Procedure Detail Performing [...] Annual Wellness (AWV) Medicare Annual Wellness (AWV) [facility] Start: 04-23-2023 End: 04-23-2023 Patient encounter procedure 04/23/2023 3:45 PM EST Office Visit [facility] [address] [place] [id number] Cynthia Henderson, DO [address] [place], [place] [id number] [facility] Start: 04-02-2023 End: 04-02-2023 ambulatory 04/02/2023 6:00 PM EST Evaluation [facility] [address] [place] [phone] Sherie Hough, PT [address] [facility] [place] [address] [facility] Start: 04-02-2023 End: 04-02-2023 Patient encounter procedure [facility] Comment on above: Arrived Start: 10-20-2022 Influenza vaccination Influenza Vacc ine (#1) [facility] Start: 02-23-2021 Pneumococcal Vaccine : 65+ Years (1 - PCV) Pneumococcal Vaccine: 65+ Years (1 - PCV) [facility] Start: 1955 Screening for malign ant neoplasm of colon [facility] XR Lumbar spine 2 or 3 Views XR lumbar spine 2 or 3 views Imaging Routine Hip pain, bilateral 03/21/2023 2:51 PM EST [facility] XR Pelvis AP and Hip - bilateral GE 2 Views XR hips bilateral 2 views Imaging Routine Hip pain, bilateral 03/21/2023 2:51 PM EST [facility] Work Phone: Immunizations Immunization Date Immunization Notes Care Provider Fa ana 07-11-2013 tetanus toxoid, redu troy diphtheria toxoid, and acellular pertussis vaccine, adsorbed Taras BARBA [facility] Payers Date Payer Category Payer Unknown [employer] [id number] 2022-Present [address] [id number] 2021 Medicare [id number] 2021 Medicare MEDICARE MEDICAR E PART B [id number] 2021-[place] [address] [place] [address] Medicare [id number] 2021 Medicare [id number] 1955 Unknown [id number] 2.16.840.1.705294.3.579.2.727 1956 Unknown [id number] 2.16.840.1.743995.3.579.2.727 1956 Unknown [id number] 2.16.840.1.096261.3.579.2.727 1956 Unknown [id number] 2.16.840.1.420696.3.579.2.727 1956 Unknown [id number] 2.16.840.1.195569.3.579.2.125 9 1956 Unknown [id number] 2.16.840.1.231020.3.579.2.125 9 1956 Unknown [id number] 2.16.840.1.193448.3.579.2.125 9 1956 Unknown [id number] 2.16.840.1.511669.3.579.2.125 9 1956 Unknown [id number] 2.16.840.1.093029.3.579.2.125 9 1956 Unknown [id number] 2.16.840.1.851083.3.579.2.125 9 1956 Unknown [id number] 2.16.840.1.072540.3.579.2.125 9 1956 Unknown [id number] 2.16.840.1.135941.3.579.2.125 1956 Unknown [id number] 2.16.840.1.794994.3.579.2.125 1956 Unknown [id number] 2.16.840.1.544379.3.579.2.125 1956 Unknown [id number] 2.16.840.1.634941.3.579.2.125 1956 Unknown [id number] 2.16.840.1.842647.3.579.2.125 1956 Unknown [id number] 2.16.840.1.285089.3.579.2.125 1956 Unknown [id number] 2.16.840.1.140224.3.579.2.125 1956 Unknown [id number] 2.16.840.1.264527.3.579.2.125 1956 Unknown [id number] 2.16.840.1.369030.3.579.2.125 1956 Unknown [id number] 2.16.840.1.854642.3.579.2.125 1956 Unknown [id number] 2.16.840.1.228587.3.579.2.125 1956 Unknown [id number] 2.16.840.1.367828.3.579.2.125 1956 Unknown [id number] 2.16.840.1.279760.3.579.2.125 1956 Unknown [id number] 2.16.840.1.839761.3.579.2.125 1956 Unknown [id number] 2.16.840.1.568446.3.579.2.125 9 1956 Unknown [id number] 2.16.840.1.824154.3.579.2.125 9 1956 Unknown [id number] 2.16.840.1.409351.3.579.2.125 9 1956 Unknown [id number] 2.16.840.1.976536.3.579.2.125 9 1956 Unknown [id number] 2.16.840.1.048173.3.579.2.125 9 1956 Unknown [id number] 2.16.840.1.444899.3.579.2.125 9 1956 Unknown [id number] 2.16.840.1.278247.3.579.2.125 9 1956 Unknown [id number] 2.16.840.1.357332.3.579.2.125 9 1956 Unknown [id number] 2.16.840.1.887035.3.579.2.125 9 1956 Unknown [id number] 2.16.840.1.762863.3.579.2.125 9 1956 Unknown [id number] 2.16.840.1.112034.3.579.2.125 9 1956 Unknown [id number] 2.16.840.1.964218.3.579.2.125 9 Unknown Regular Insurance [id number] Social History Date Type Detail Facility Start: 11-26-2019 End: 08-12-2022 Tobacco smoking status Ex-smoker (finding) [facility] Tobacco smoking status Never [facility] Start: 08-04-2022 End: 03-21-2023 Sex Assigned At Male [facility] End: 02-19-1989 History of tobacco use Current smoker [facility] End: 02-19-1989 History of tobacco use Cigarette Smoker [facility] Start: 08-12-2022 Tobacco use and exposure Former smokeless tobacco user [facility] End: 02-19-1989 History of tobacco use Chews Tobacco [facility] Start: 03-21-2023 End: 04-02-2023 Alcohol intake Lifetime non-drinker (finding) [facility] Start: 08-04-2022 End: 03-21-2023 History of Social function [facility] Start: 08-12-2022 Tobacco Comment Last smoked: > 10 years [facility] Start: 08-12-2022 Alcohol Comment Caffeine intak e: 3-4 cups per day soda/pop, energy drinks, tea [facility] Start: 1955 Sex Assigned At Not on file [facility] Start: 07-25-2023 Tobacco smoking status NHIS Never smoked tobacco (finding) [facility] Start: 1955 Sex Assigned At Male [facility] NEGATED: Highlighted rowStart: NINF History of tobacco use Passive smoker [facility] Functional Status Date Assessment Result Facility 07-06-2023 Functional Status N/A [facility] 07-06-2023 Functional Status [facility] 11-21-2021 Functional Status N/A [facility] Clinical Notes 11-21-2021 to 07-13-2023 Note [...] Locations R1: This test was performed at: [facility], [address] [place] [address], [id number] , , [facility] Comment on above: Performed By: #### 1 [id number] #### [facility] [address] [place] [id number] 07-13-2023 Note Microbiology PROCEDURE: Blood Culture Charcoal [R1] SOURCE: Blood BODY SITE: Arm L COLLECTED DATE/TIME: 07/06/2023 12:34 EDT RECEIVED DATE/TIME: 07/06/2023 13:01 EDT START DATE/TIME: 07/06/2023 13:01 EDT FREE TEXT SOURCE: Curt VARGAS, rFanki Elias PA-C, Franki FINAL REPORTS Final Report [] Verified Date/Time: 07/13/2023 15:00 EDT No growth at 7 days. Performing Locations R1: This test was performed at: [facility] [place], [address] [place] [address], [address] [place] [address], [facility] Comment on above: Performed By: #### 1 [id number] #### [facility] [address] [place] [id number] 07-11-2023 Note Microbiology PROCEDURE: Wound Culture [R1] [...] Locations R1: This test was performed at: [facility], [address] [place] [address], [id number], [facility] Comment on above: Performed By: #### [id number] #### [facility] [address] [place] [address] 07-10-2023 Note Admission and Discha rge Information Admit Date/Time:07/06/2023 14:36 Admitting Physician - Dwight Eddy DO Consulting Physician - Sadia Shannon, Jean Marie Mariscal DPM, Jhonatan Brandon MD, Dixie Cartagena Admitting [...] (08/04/2015), Abdominal hernia. 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 He was subsequently admitted to [facility] with acute cellulitis of the right leg secondary to infected right ankle wound and suspected erysipelas. He was also admitted with Acute kidney injury secondary to ATN from infection, meloxicam, hydrochlorothiazide and lisinopril.. He was treated with IV Invanz, IV vancomycin, IV fluid, as needed pain medications. He was seen in consultation by the infectious disease specialist as well as the highway research engineer. Lpn Care Manager did a bedside incision and drainage of [...] Patient to follow-up with infectious disease specialist, highway research engineer as well as his primary care physician accordingly. He will also follow-up with the vascular surgeon. New medication: Zyvox 600 mg twice daily x 2 weeks. Medications discontinued: Hydrochlorothiazide Meloxicam Services Consulted Consult to Infectious Disease Physician - Ordered -- 07/09/23 17:27:00 EDT, Cellulitis right leg, Consult and Co-manage Consult to Lpn Care Manager - Ordered -- 07/06/23 16:50:00 EDT, RLE [...] Marie Mccullough 07/23/2023 (more content not included)... [facility] Comment on above: Result Comment: Elec tronically Signed By: AYANNA SUH, Elvira\.br\Date and Time Signed: 07/10/23 15:51 EDT 07-10-2023 Hospital Discharge instructions Patient Education 07/10/2023 15:22:59 Cellulitis, Adult, Womz-if-Xgdw Cellulitis, Adult Cellulitis is a skin infection. [...] Follow these instructions at home: Medicines Take sjuj-xjk-qadpkgw and prescription medicines only as told by [...] provider. Document Revised: 11/17/2021 Document Reviewed: 11/17/2021 flikdate Patient Education 2022 [employer]. Follow Up Care 07/06/2023 12:01:51 With:Dixie Brandon Address: [address] [place] [address] Business (1) When:1 to 2 weeks Comments:Call for followup appointment With:Jean Marie Mccullough Address: [address] [place] [address] Business (1) When:07/23/2023 13:45:00 With:Michelle Figueroa Address: [address] [facility] [place] [address]- Business (1) When:07/17/2023 10:00:00 With:Jhonatan Mariscal Address: [facility] [address] [place] [address]- When:07/11/2023 08:20:00 [facility] 07-10-2023 Evaluation + Plan note Extrac [...] Mccullough 07/23/2023 01:45 PM EDT [address] [place] [address]- Business (1) Additional Instructions: Michelle Ammon 07/17/2023 10:00 AM EDT [address] [place] [address]- Business (1) Additional Instructions: Jhonatan Roberto Carlostonya 07/11/2023 08:20 AM EDT [facility] [address] [place] [address]- Additional Instructions: Dixie Brandon Within 1 to [address] [place] [address]- Business (1) Additional Instructions: Call for followup appointment Cellulitis, Adult, Aowm-hf-Bjmd Extracted from: Title:Infection Admission H&P * Author:Jean [...] needed.. Extracted from: Title:APSO Note Author:AYANNA SUH, Elvira Date: 68-year-old male with histor y of [...] with IV Invanz and vancomycin. Seen by highway research engineer and had a bedside incision and drainage of blister/bullae. Status post wound dressing. MRI does not show any deep tissue abscess of bone involvement/osteomyelitis. Infectious disease consult pending. Vascular surgery consult can be done as outpatient. Ordered: [facility] Hospital Care/Day Moderate 35 Minutes 09500 2. Wound of right ankle (S91.001A: Unspecified open wound, right ankle, initial encounter) Continue wound dressings. Wound cultures so far not isolating any organisms. Ordered: [facility] Hospital Care/Day Moderate 35 Minutes 02459 Wound Culture 3. Acute kidney injury (N17.9: Acute kidney failure, unspecified) Acute kidney injury secondary to ATN from above infection, diuretics and lisinopril. Improved. Lisinopril and hydrochlorothiazide suspended. Treated with IV fluid. Ordered: [facility] Hospital Care/Day Moderate 35 Minutes 87821 4. Obese (E66.9: Obesity, unspecified) Recommend therapeutic lifestyle modification changes. Ordered: [facility] Hospital Care/Day Moderate 35 Minutes 36736 5. HTN (hypertension) (I10: Essential (primary) hypertension) [...] made to ensure accuracy. However inadvertent computerized product marketing programs manager errors may be present. Elvira Urena. Hospitalist. [...] Infuse over 30 minute(s), 07/09/23 12:12:00 EDT [facility] Hospital Care/Day Moderate 35 Minutes 15552 2. Wound of right ankle (S91.001A: Unspecified open wound, right ankle, initial encounter) Present during this admission. Wound culture. MRI of the foot pending. Ordered: ertapenem + Sodium Chloride 0.9% intravenous solution 50 mL, 500 mg = 0.5 EA, IV Piggyback, Daily, Routine, Start date 07/10/23 9:00:00 EDT, 100 mL/hr, Infuse over 30 minute(s), 07/09/23 12:12:00 EDT [facility] Hospital Care/Day Moderate 35 Minutes 10414 Wound Culture 3. Acute kidney injury (N17.9: Acute kidney failure, unspecified) Acute kidney injury secondary to ATN from above infection, diuretic and lisinopril. Improved. Avoid nephrotoxic drugs. Lisinopril and hydrochlorothiazide suspended. Treated with IV fluid. Ordered: [facility] Hospital Care/Day Moderate 35 Minutes 39873 4. Obese (E66.9: Obesity, unspecified) Recommend therapeutic lifestyle modification changes. Ordered: [facility] Hospital Care/Day Moderate 35 Minutes 23848 5. HTN (hypertension) (I10: Essential (primary) hypertension) [...] made to ensure accuracy. However inadvertent computerized product marketing programs manager errors may be present. Elvira Urena. Hospitalist. [...] control as needed Last for a.m. Ordered: [facility] Hospital Care/Day Moderate 35 Minutes 48111 2. Acute kidney injury (N17.9: Acute kidney failure, unspecified) Serum creatinine down to 1.4 FENa from yesterday was 1.8; may be intrinsic and he was taking HCTZ, lisinopril and Mobic in the outpatient setting which all have been held Ordered: [facility] Hospital Care/Day Moderate 35 Minutes [id number] Orders: Basic Metabolic Panel eGFR Extra Lav [...] Ordered: Initial Hospital Care/Day Moderate 55 Minutes 79206 2. Acute kidney injury (N17.9: Acute kidney failure, unspecified) FENa 1.8 which may be intrinsic; patient was taking HCTZ and lisinopril which had been held and he was also taking Mobic Creatinine down to 1.6 Continue to trend Ordered: Initial Hospital Care/Day Moderate 55 Minutes 31741 Orders: acetaminophen, 650 mg = 2 tab(s), [...] Diet CBC w/ Auto Diff Consult to Lpn Care Manager Creatinine Urine eGFR Notify Provider Vital Signs [...] Diet CBC w/ Auto Diff Consult to Lpn Care Manager Creatinine Urine Notify Provider Vital Signs Notify [...] Date:09/12/2023 03:30:00 PM Scheduled Provider:Taras BARBA MD Location:[facility] Appointment Type:URO Office Visit Diagnostic Tests Pending * Vancomycin Level Trough 07/12/23 Future Scheduled Tests Laboratory* PSA Total 11/21/22 * Basic Metabolic Panel 07/17/23 Radiology* XR Abdomen 1 View 11/21/22 [facility]05-17-2024 NoteBasic Information Admit Date/Time:07/06/2023 14:38 Chief [...] initially his leg on Sunday felt like ksst-pka-[id number]. 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 [...] 15.6 gm/dL (07/06/23 12:34:00) Hct: 46.2 % (07/06/23:34:00) MCV: 95.3 fL (07/06/23 12:34:00) MCH: 32.2 pg (07/06/23 12:34:00) MCHC: 33.7 gm/dL (07/06/23:34:00) RDW: 13.9 % (07/06/23 12:34:00) Platelet: 189 E9/L (07/06/23 12:34:00) MPV: 8.5 fL (07/06/23 12:34:00) Neutro Auto: 70.2 % (07/06/23 12:34:00) Lymph Auto: 18.3 % (07/06/23 12:34:00) Preble Auto: 8.3 % (07/06/23 12:34:00) Eos Auto: 2.8 % (07/06/23:34:00) Basophil Auto: 0.4 % (07/06/23 12:34:00) Neutro Ab (more content not included)...[facility] HospitalComment on above:Result Comment: Electronically Signed By: Dwight Eddy DO\Date and Time Signed: 07/06/23 17:41 [id number] History of Present illness Narrative* Gerald Padilla [...] History: Procedure Laterality Date HERNIA REPAIR 2012 [place] REMOVAL OF KIDNEY STONE 2015 x3 Allergies [...] need GONZALEZ. Not interested in referral to [facility] Tinnitus managementclinic documented in this encounterCass Medical [id number] History of Present illness Narrative* Carlotta Morrison [...] History: Procedure Laterality Date HERNIA REPAIR 2013 [place] REMOVAL OF KIDNEY STONE 2016 x3 FAMILY [...] [facility] We did discuss more focal treatment [...] to Dr. Michelle Figueroa. documented in this encounterCass Medical CenterShpyoeppfw97-05-3200 Hospital Discharge instructions Patient Education 11/21/2021 09:20:07 Kidney Stones, Cfkf-ci-Ubcp Kidney Stones Kidney stones are rock-like masses [...] Follow these instructions at home: Medicines Take dsgi-soh-idebgvc and prescription medicines only as told by [...] 07/24/2008 Document Revised: 06/24/2019 Document Reviewed: 06/24/2019 flikdate Patient Education 2020 [employer]. Follow Up Care 01/24/2021 08:12:17 With:JAMESON SUH, Taras Duncan, URL Address: [facility] [employer] [address]- When:Within 18 Month(s) Comments:w/psa and kub [facility] Evaluation + Plan note Future Appointments Appointment Date:11/21/2021 08:45:00 AM Scheduled Provider:Taras BARBA MD Location:[facility] Appointment Type:URO [facility] Future Appointments Appointment Date:05/21/2023 08:00:00 AM Scheduled Provider:Taras BARBA MD Location:[facility] Appointment Type:URO Office Visit Future Scheduled Tests Laboratory* PSA Total 11/21/22 Radiology* XR Abdomen 1 View 11/21/22 [facility] Evaluation + Plan note Future Appointments Appointment Date:09/12/2023 03:30:00 PM Scheduled Provider:Taras BARBA MD Location:[facility] Appointment Type:URO Office Visit Future Scheduled Tests Laboratory* PSA Total 11/21/22 Radiology* XR Abdomen 1 View 11/21/22 [facility] Future Appointments Appointment Date:09/12/2023 03:30:00 PM Scheduled Provider:Taras BARBA MD Location:[facility] Appointment Type:URO Office Visit Future Scheduled Tests Laboratory* PSA Total 11/21/22 * Basic Metabolic Panel 07/17/23 Radiology* XR Abdomen 1 View 11/21/22 [facility]* Diagnosis Hip pain, bilateral- Primary Pain in joint, pelvic region and thigh Left hip pain Pain in joint, pelvic region and thigh Lumbar spondylosis Lumbosacral spondylosis without myelopathy Degeneration of lumbar intervertebral disc Degeneration of lumbar or lumbosacral 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 syndrome Right hip impingement syndrome [facility]* Diagnosis Bilateral tinnitus- Primary Sensorineural hearing loss (SNHL), bilateral documented [facility] this [facility] noteNo assessment information availableOhio[facility] Work Phone: Evaluation note* Diagnosis Onset Date Resolution Status Erysipelas of right lower extremity acute [facility] Work Phone: Hospital course Narrative No data available for this section [facility] No data available for this section [facility] No data available for this section [facility] Reason for Referral Specialty Diagnoses / Procedures Referred By Contac t Referred To Contact Physical Therapy Diagnoses Hip pain, bilateral Left hip pain Lumbar spondylosis 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 Procedures [place] OFFICE/OUTPATIENT NEW HIGH MDM 60 MINUTES Cynthia Henderson DO [address] [place] [address] Cynthia Ramirez, PT [address] [place] [address] Referral ID Status Reason Start Date Expiration Date Visits Requested Visits Authorized [id number] Authorized Consult and Treat 03/21/2023 09/17/2023 10 [...] Pain Specialty Diagnoses / Procedures Referred By Damien Referred To Contact Orthopaedic Surgery Diagnoses Left hip pain Michelle Figueroa MD [address] [place] [address] Cynthia Henderson DO [address] [place] [address] Referral ID Status Reason Start Date Expiration Date V isits Requested Visits Authorized [id number] Closed Specialty Services Required 03/13/2023 09/09/2023 1 [...] Personnel Name: Michelle Figueroa MD Address: Address: [address] [place] [address]- Pediatric Allergist Relationship Specialty Start Date End Date Michelle Figueroa MD [address] [place] [address] PCP - General Family Medicine 07/05/22 Michelle Figueroa MD [address] [place] [address] PCP - ACO Reach 07/13/22 (unrecognized sect [...] and content) DATE CREATED AUTHOR 07/09/2023 [facility] DATE CREATED AUTHOR AUTHOR'S ORGANIZ ATION 07/10/2023 Jarquin [facility] DATE CREATED AUTHOR AUTHOR'S ORGANIZ ATION 07/11/2023 [facility] DATE CREATED AUTHOR AUTHOR'S ORGANIZ ATION 07/13/2023 [facility] DATE CREATED AUTHOR AUTHOR'S ORGANIZ ATION 07/15/2023 [place] DATE CREATED AUTHOR AUTHOR'S ORGANIZ ATION 08/17/2023 [place] [facility] DATE CREATED AUTHOR AUTHOR'S ORGANIZ ATION 08/17/2023 [facility] dical Specialists [facility] Goals (unrecognized section and content) Goals may [...] BE BASED ON THE PRIMARY CLINICAL RECORDS. [employer] [facility]. provides no warranty or guarantee of the accuracy or completeness of information in this document.
--- NOTE | 2023-08-20 09:35 | W.VEIN ---
Discharge Plan Discharge Disposition: Home, Self-Care Outpatient Diagnostics: VC Endovenous Ablation 1VeinRT (Routine) Timeframe: 2 Weeks Facility: [facility] - Location: Vein Center Ordered By: Viktor Hernandez Follow Up Appointments: 08/31/23 Patient Instructions: Endovenous Ablation (DC) Print Language: Polish Discharge Date/Time: 08/20/23 12:38
== END 2023-08-20 12:38 | disposition home or self-care (01) ==
PROVIDERS: PCP Podiatrist Foot & Ankle Surgery; Visit Provider Radiology Diagnostic Radiology
DX: I80.01 Phlebitis and thrombophlebitis of superficial vessels of right lower extremity (principal)
CPT/HCPCS: 93971; G0463

== ENCOUNTER 2023-08-31 08:27 | Outpatient (OUT) | payer MEDICARE, OTHER, SELFPAY ==
--- NOTE | 2023-08-31 07:50 | VEINCLINIC_ITS ---
Vital Signs 08/31/23 08:05 Height 6 ft Weight 97.522 kg BMI 29.2 BP 124/70 BP Location Left Brachial BP Position Sitting BP Cuff Size Adult BP Source Manual Cuff Respiration 16 Pulse 59 L Pulse Oximetry (%) 98 Comment The patient's blood pressure is elevated. Varicose Veins Ari Acevedo MD personally performed the services described in this documentation, as scribed by Tamy Negrete RN in my presence and it is both accurate and complete. Tamy Acevedo RN, am scribing for, and in the presence of, Dr. Ari Wilson and in the presence of the patient. thigh: bilateral, knee: bilateral, calf: bilateral and ankle: bilateral aching, burning, sharp and other (itching) 10 2 years Worsened in recent months: Yes standing and sitting analgesics, elevating extremities and compression stockings Reports erythema, firmness, heaviness, limb pain, edema, leg edema and other (cellulitis, ulcer) History of lower extremity trauma: No Superficial thrombophlebitis: Yes Family history of varicose veins: no Has patient had previous lower extremity venous surgery: No Patient has previously received the following treatment(s) for lower extremity varicose veins: Reports none Does patient have a history of : not applicable Does patient intend to have future pregnancies: not applicable Has patient had lower extremity venous scan with relux testing: Yes Support hose used: Yes Problems walking or doing physical activity: Yes How does it affect you: unable to stand for periods of time Do you walk much: Yes Do you stand much: Yes Medication compliance: good Large amounts of Vitamin K: No Review of Systems ROS Narrative Ari Acevedo MD personally performed the services described in this documentation, as scribed by Tamy Negrete RN in my presence and it is both accurate and complete. Tamy Acevedo RN, am scribing for, and in the presence of, Dr. Ari Wilson and in the presence of the patient. Status of ROS 10 or more systems reviewed and unremark able except as noted in history and below Cardiovascular Reports: edema and swelling of feet/ankles Musculoskeletal Reports: extremity pain, extremity swelling, joint pain, joint swelling, muscle cramps and muscle weakness Integumentary/Breast Reports: itching, redness, skin pain, skin tenderness, skin swelling, sores (right distal medial), non-healing lesion (right distal medial) and changes in skin color (hemosiderin staining) Hematologic/Lymphatic Reports: easy [facility] Medical History (Updated 08/20/23 @ 08:45 by Esther Sy) Phlebitis and thrombophlebitis of superficial vessels of right lower extremity ?I80.01 - Phlebitis and thrombophlebitis of superficial vessels of right lower extremity (ICD-10) Phlebitis and thrombophlebitis of superficial vessels of left lower extremity ?I80.02 - Phlebitis and thrombophlebitis of superficial vessels of left lower extremity (ICD-10) Varicose veins of bilateral lower extremities with pain ?I83.813 - Varicose veins of bilateral lower extremities with pain (ICD-10) Hernia ?K46.9 - Unspecified abdominal hernia without obstruction or gangrene (ICD- 10) Abscess ?L02.91 - Cutaneous abscess, unspecified (ICD-10) Cellulitis ?L03.90 - Cellulitis, unspecified (ICD-10) Kidney stone ?N20.0 - Calculus of kidney (ICD-10) Hypertension ?I10 - Essential (primary) hypertension (ICD-10) Gout ?M10.9 - Gout, unspecified (ICD-10) Surgical History (Updated 08/20/23 @ 08:45 by Esther Sy) Status post ablation of incompetent vein using laser ?Z98.890 - Other specified postprocedural states (ICD-10) History of hernia repair ?Z98.890 - Other specified postprocedural states (ICD-10) ?Z87.19 - Personal history of other diseases of the digestive system (ICD-10) Family History (Updated 08/20/23 @ 08:48 by Esther Sy) Father Family history of cancer Family history of diabetes mellitus Mother Family history of hypertension Social History (Updated 08/20/23 @ 08:49 by Esther Sy) Within the past year, how often did you have a drink containing alcohol: monthly or less Smoking status: Former smoker What tobacco products do you use: cigarettes Packs per day: 0.5 Years smoked: 20 Smoking pack-years: 10.00 Smoking quit date/years: >15 years ago Non-prescribed substance use: denies use Meds Home Medications and Allergies Home Medications ?Medication ?Instructions ?Recorded ?Confirmed ?Type Lactobacillus acidophilus 10 100 mmu cells PO DAILY 08/20/23 08/20/23 History billion cell capsule (Probacap) allopurinol 200 mg tablet 200 mg PO DAILY 08/20/23 08/20/23 History amlodipine 5 mg tablet 5 mg PO DAILY 08/20/23 08/20/23 History linezolid 600 mg tablet 600 mg PO BID 08/20/23 08/20/23 History Allergies Allergy/AdvReac Type Severity Reaction Status Date / Time aspirin Allergy Unknown Verified 08/10/23 17:07 Exam Narrative Exam Narrative: IAri MD personally performed the services described in this documentation, as scribed by Tamy Negrete RN in my presence and it is both accurate and complete. I, Tamy Negrete RN, am scribing for, and in the presence of, Dr. Ari Wilson and in the presence of the patient. Constitutional Documenting provider has reviewed patient's vital signs: yes Common normals: oriented x3 General appearance: cooperative Lymph Lymphatic: no lymphedema noted Chest Common normals: inspection of chest normal Respiratory Common normals: normal respiratory effort Cardio Rate: regular rate Rhythm: regular rhythm Peripheral pulses: posterior tibial pulses present and dorsalis pedis pulses present GI Common normals: Normal to inspection, nondistended, normoactive bowel sounds present Extremity General: calf tenderness, edema (Right lower extremity edema significantly improved) and other findings (Non-healing ulcer right distal medial lower leg) Right lower extremity: lower leg Right lower leg: inspection Left lower extremity: lower leg Left lower leg: inspection Neuro Common normals: oriented x3 Assessment and Plan Assessment and Plan (1) Varicose veins of bilateral lower extremities with pain: Plan Plan of care: Risks and benefits of the procedure were discussed at length and informed written consent was obtained.? Time-out completed for verification of correct patient, procedure and site.? Staff present during time-out: Tamy Negrete RN,? Ari Wilson MD, [facility],RVT. Time Out Time___0908____ Patient prepped and procedure performed in usual sterile fashion. Risk of injury related to use of Diode laser and/or laser devices? __AG___ ? Serial number of laser used :? [id number] Control panel self test performed, electrical cords in good condition, floor is dry, basin of water available, fire extinguisher in close proximity_AG__ Polycarbonate goggles available and Laser warning signs outside of doors___AG___ Eye protection provided to patient and staff in room_AG___ Use of laser retardant drapes and dull blackened instruments as directed__AG___ Use of nonflammable prep solutions and use of saline soaked sponges to protect tissues as indicated _AG___ Length ____28____ cm Laser operated by ____Dr. Wilson Physician verbal confirmation laser locked in place__AG__ Laser start time (date and time) __08/31/23@_923 Laser stop time(date and time) __08/31/23@926 Jaquez _8.0___ Average laser use ___1332____Joules Average laser use____167____seconds Pulse continuous ___AG_? Pulse intermittent ___ Amount of Tumescent used ___100___ Evaluated patient for signs and symptoms of electrical injury __AG___ ? Skin clear at insertion site __AG___ Patient tolerated procedure well.? Right leg Coban dressing applied to access site.? Applied Right thigh high leg compression stocking. Will return on 09/04/23 for Right leg limited venous ultrasound and exam. I, Ari Wilson MD personally performed the services described in this documentation, as scribed by Tamy Negrete RN in my presence and it is both accurate and complete. I, Tamy Negrete RN, am scribing for, and in the presence of, Dr. Ari Wilson and in the presence of the patient.
--- NOTE | 2023-08-31 08:01 | P.DS_ITS ---
Discharge Plan Discharge Disposition: Home, Self-Care Outpatient Diagnostics: VC Facility EST LMTD (Routine) Timeframe: 2 Weeks Facility: [facility] - Location: Vein Center Ordered By: Ari Wilson VC EXT Venous RT LMTD (Routine) Timeframe: 2 Weeks Facility: [facility] - Location: Vein Center Ordered By: Ari Wilson Follow Up Appointments: 09/04/23 Plan of Treatment: Follow up with ultrasound post EVLT of right leg SSV. Patient Instructions: Endovenous Ablation (DC) Print Language: Malay Discharge Date/Time: 08/31/23 09:46
[2023-08-31 08:05] VITALS: BP 124/70; PULSE 59; O2SAT 98; BMI 29.2
--- NOTE | 2023-08-31 08:34 | VEIN_ITS ---
[address] [address] Patient Name: JEAN MARIE MAST MRN: [id number] date: 1955 Sex: M Assigned Patient Location: Current Patient Location: Accession/Order Number: [id number] Exam Date: 08/31/2023 08:45 Report Date: 08/31/2023 09:55 At the request of: MERCED LO Procedure: VC Endovenous Ablation 1VeinRT EXAMINATION: VC Endovenous Ablation 1Vein, right small saphenous vein HISTORY: I83.813 - Varicose veins of bilateral lower extremities w... COMPARISON: No relevant comparison available. TECHNIQUE: The risks and benefits of the procedure had been previously discussed, and were rediscussed at length. Informed written consent was obtained. Catarina Quinones and Tamy Negrete assisted. Time out procedure was performed. The right lower extremity was prepared and draped in the usual sterile fashion. Duplex ultrasound probe was draped in a sterile cover, sterile transmission gel was used. Venous mapping was performed with the areas of dilation and large tributaries marked. The total length was 28 cm from the entry 5 cm above the lateral malleolus to where the vein begins to diagnose into the muscle fascia, this was a thigh extension. The diameter of the multiple saphenous vein ranged from 4-7 mm. A 30 gauge needle and 1% buffered lidocaine was used to anesthetize the entry site. A 4 mm incision was made with a scalpel and the saphenous vein was entered percutaneously under direct ultrasound guidance with a micropuncture set. 2 sticks were required. The first technique gained venous access however the wire could not be advanced through calcifications. A micro-guide wire was inserted and the needle removed. A micro-set including a dilator was inserted over the microwire and the needle and dilator were removed. A 0.018 guide wire was inserted through the micro-set and threaded through the saphenous vein to the saphenofemoral junction. The dilator was removed and an introducer sheath was inserted over the wire until the end of the sheath entered the saphenofemoral junction. The dilator and wire were removed and the 600 micron fiber was introduced and placed and positioned so that it extended beyond the sheath and was 3 cm peripheral to the saphenofemoral femoral junction. Final position of the fiber was determined by ultrasound guidance and duplex imaging. Tumescent anesthetic was delivered by ultrasound guidance. 100 cc of fluid was delivered along the entire course of the saphenous vein. The solution consisted of 1000 cc of normal saline with 40 mL of 1% lidocaine and 20 mL of sodium bicarbonate. A final positioning check was made. The energy source was turned on by means of the foot pedal and the fiber and sheath were withdrawn. The total number of Joules delivered was 1332. The laser was active for 167seconds under continuous pulse, average laser use of 8 J. Laser start time 9:24 AM 08/31/2023 . Laser stop time 9:27 AM 08/31/2023 . A duplex ultrasound revealed compressibility and flow at the saphenofemoral junction immediately after the procedure. Hemostasis at the access site was achieved. The skin incision of the saphenous vein was closed with a 4 x 4. A compression stocking was applied. Postop instructions were given. A follow up appointment was recommended and scheduled. The patient tolerated the procedure well and was discharged in good condition . VEIN/VC Endovenous Ablation 1VeinRT IMPRESSION: Technically successful endovenous laser ablation of the right small saphenous vein Electronically authenticated by: CYNTHIA BOWMAN Date: 08/31/2023 09:55
[2023-08-31] MEDS: LIDOCAINE HCL 1% 100 MG/10 ML MDV INJ (09:42)
[2023-08-31] MEDS: 0.9 % SODIUM CHLORIDE 500 ML, LIDOCAINE HCL 20 ML, SODIUM BICARBONATE 10 MEQ INJ (09:43)
== END 2023-08-31 09:46 | disposition home or self-care (01) ==
LOC: VC 08:27
PROVIDERS: PCP Radiology Diagnostic Radiology; Visit Provider Radiology Diagnostic Radiology
DX: I83.813 Varicose veins of bilateral lower extremities with pain (principal)
CPT/HCPCS: 36478

== ENCOUNTER 2023-09-04 07:28 | Outpatient (OUT) | payer MEDICARE, OTHER, SELFPAY ==
--- NOTE | 2023-09-04 07:28 | VEIN_ITS ---
Patient Name: JEAN MARIE MAST MR#: [id number] : 1955 Exam Date: 09/04/2023 Ordering Doctor: DR ARI WILSON M.D. RADIOLOGY REPORT PROCEDURE: VC EXT VENOUS RT LMTD COMPARISON: VC EXT VENOUS RT LMTD, 08/20/2023. INDICATIONS: I80.01 - Phlebitis and thrombophlebitis of superficial ve... TECHNIQUE: Lower extremity holder scale and Duplex Doppler evaluation of the deep venous system from the inguinal ligament through the calf veins. FINDINGS: REGION: Right lower extremity. THROMBI: Negative for DVT. Heat induced thrombus visualized 2.2cm from the SPJ. The heat induced thrombus extends from SPJ to distal calf. COMPRESSIBILITY: Non-compressible segments corresponding to thrombus FLOW: Areas of no flow corresponding to thrombus CONCLUSION: Post ablation occlusion of the right small saphenous vein with heat induced thrombus 2.2 cm from the saphenopopliteal junction Dictated by: Ari Wilson MD on 09/04/2023 at 07:45 Approved by: Ari Wilson MD on 09/04/2023 at 07:46
--- NOTE | 2023-09-04 07:28 | VEIN_ITS ---
Patient Name: JEAN MARIE MAST MR#: [id number] : 1955 Exam Date: 09/04/2023 Ordering Doctor: DR ARI WILSON M.D. RADIOLOGY REPORT PROCEDURE: [facility] EST LMTD VEIN CENTER - OFFICE VISIT FOLLOW UP [facility] PROGRESS NOTES: The patient reports no significant problems following intravenous laser ablation of the right small saphenous vein. The patient did not require oral analgesics. The patient has worn his compression stocking. Patient does report slight decrease in overall presenting symptoms with persistent but slightly decreased swelling. I did certified alcohol drug counselor the patient that we likely would see improvement but not necessarily complete resolution of the swelling. Physical exam demonstrates reduction in swelling and erythema of the right leg. Continued healing of his venous stasis ulcerations is observed. The small saphenous vein cannot be palpated likely related to subcutaneous edema. Review of the ultrasound performed the same day demonstrates occlusive thrombus extending throughout the treated right small saphenous vein with heat induced thrombus 2.2 cm from the saphenous popliteal junction. No deep vein thrombus. The patient expressed a desire to proceed with treatment of right leg incompetent perforating veins. VEIN/[facility] EST LMTD IMPRESSION: 1. Successful ablation of the right small saphenous vein 2. Persistent incompetent right leg perforating veins PLAN: Intravenous laser ablation leg incompetent perforating veins Nurse notes, history and physical were reviewed and confirmed, see attached forms. The nurse was present throughout the physical exam and consultation Dictated by: Ari Wilson MD on 09/04/2023 at 07:49 Approved by: Ari Wilson MD on 09/04/2023 at 07:58
--- OUTSIDE RECORDS SUMMARY | 2023-09-04 07:31 | XMS_ITS | CCD ---
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 Name Role Phone NONE, XXXX Primary Care Physician Unavailab Michelle Ace MD Primary Care Provider Michelle Figueroa MD Unavailable [phone] Michelle Figueroa Primary Care Physician [phone] Jhonatan Mariscal Admitting Unavailable Dolce, Jhonatan Richardson Attending Unavailable Yanira, Jhonatan Richardson Referring Unavailable Arnel Modi Attending Unavailable Taras BARBA Attending Unavailable Courtney BENOIT Attending Unavailable DO Jose Manuel Figueroa Attending Unavailable Elvira URENA Attending Unavailable Dwight Eddy Admitting Unavailable Dolce, Jhonatan Richardson Consulting Unavailable Dolce, DPM Jhonatan Richardson Consulting Unavailable Dolce, Jhonatan Richardson Consulting Unavailable Dolce, Jhonatan Richardson Consulting Unavailable Dolce, Jhonatan D Consulting Unavailable Dolce, Jhonatan D Consulting Unavailable Dolce, Jhonatan D Consulting Unavailable Dolce, Jhonatan D Consulting Unavailable Dolce, Jhonatan D Consulting Unavailable Dolce, Jhonatan D Consulting Unavailable Dolce, Jhonatan D Consulting Unavailable [...] Allergy Type Date of Onset Reaction(s) Facility Aspirin (1 source) Aspirin; Translations: [aspirin] Drug Allergy [facility] Repository (6 sources) Aspirin; Translations: [aspirin] Drug Allergy Unknown (qualifier value) [facility] (7 sources) Aluminum aspirin Drug Allergy 3 [...] 12:00am Start: 11-26-2019 take 2 tablets by [facility] once daily allopurinol 100 mg Tab 200 [...] day(s), # 28 tab(s), Refills(s) 0, Pharmacy: [facility], 185.4, cm, 07/06/23 12:13:00 EDT, Height/Length Dosing, 109.4, kg, 07/06/23 12:13:00 EDT, Weight Dosing Start Date: 07/10/23 Stop Date: 07/24/23 Status: Ordered lisinopril 40 mg oral tablet (14 sources) Angiotensin Converting Enzyme Inhibitor Start: 07-06-2023 take 40 mg by mouth once daily Lisinopril Active 40 MG PO Daily July 25, 2023 12:00am Start: 11-26-2019 take 2 tablets by vt ut once daily lisinopril 20 mg Tab 40 [...] Reference Range Facility Referrals Officeon Referrals Office [id number]#[id number] TIFF Normal [facility] General Message Officeon General Message Office --- --- --- --- - -- --- --- --- --- From: Lida DirectInbox To: JEAN MARIE MAST SR Sent: 07/11/23 02:31:06 AM EDT Subject: Discharge Summary Ready to View A summary regarding your recent visit is available in the Documents section of your health record. Normal [facility] Consultation Noteon 07-10-19 Consultation Note Patient: [...] Problems Asymptomatic microscopic hematuria / SNOMED CT 6378547514 / Confirmed BPH with urinary obstruction / SNOMED CT 1275347652 / Confirmed kidney stones / SNOMED CT 605759792 / Confirmed Histories Past Medical History: Active kidney stones (879694966) Resolved HTN - Hypertension (5509006022): Resolved. Gout (711512015): Resolved. Family History: Kidney stone Mother Hypertension Mother Diabetes mellitus type 2 Father Procedure history: Cysto, left ureteral stent removal, left RGP, left ureteronephroscopy with Holmium laser ablation, multiple basket extraction of stone,fragments, replacement of JJ ureteral stent under fluoroscopic guidance. on 09/08/2015 at 60 Years. Cystoscopy ([id number]) on 08/04/2015 at 60 Years. Comments: 08/04/2015 17:56 EDT - Maurice ALMAGUER, Marilyn Left Stent Insertion Abdominal hernia (763868565). Physical Examination Vital Signs 07/10/2023 12:01 EDT Heart Rate Monitored 79 bpm 07/10/2023 12:00 EDT Temperature Axillary 36.3 DegC 07/10/2023 12:00 EDT Systolic Blood Pressure 142 mmHg HI Diastolic Blood Pressure 86 mmHg 07/10/2023 7:50 EDT Temperature Axillary 36.8 DegC PR 07/09/2023 19:21 EDT Temperature Axillary 36.7 DegC 07/09/2023 15:10 EDT Temperature Axillary 36.8 DegC PR 07/09/2023 11:55 EDT Temperature Axillary 36.6 DegC [...] further antibiotics are needed.. Normal [facility] Comment on above: Result Comment: Elec tronically Signed By: Jean Marie Mccullough M.D\.br\Date and Time Signed: 07/10/23 14:43 EDT Discharge Instructionson Discharge Instructions [id number] TIFF Normal [facility] Discharge Note-Nursingon Discharge Note-Nursing JEAN MARIE MAST SR, DOB:1955 Visit Date:07/06/2023 Inpatient Discharge Instructions Your Care Team Admitting Physician - Dwight Eddy DO Consulting Physician - Jean Marie Mccullough M.D DPM, Jhonatan Brandon MD, [facility]. Reason for Your Visit pt reports [...] Diagnostic Test Results Wound culture Pharmacy Information [facility] Previously Scheduled Follow-Up Appointments Sunday 3:30 PM EDT With: JAMESON SUH, Taras Duncan Where: [facility] Inpatient Clinical Summaryon 07-10-2023 Inpatient Clinical Summary [place] [address] Clinical Summary Person Information: Name: JEAN MARIE MAST SR Age: 68 Years : 1955 Sex: Male PCP: Carolina SUH, Michelle Barlow Marital Status: Race: White Ethnicity: Non- or Language: Georgian Visit Id: Visit Reason: Cellulitis - Leg; Lower leg pain-swelling; SENT BY DR MARISCAL, LEG PAIN Speciality: Acuity: Enc Type: Inpatient Med Service: Medical Arrival: 07/06/2023 12:00:42 Discharge: Dispo Type: Admitted as IP to this Hosp Address: [address] [place] [address] [address] [facility] [address] Provider Notes: Diagnosis: 1:Cellulitis of right leg; [...] up: With: Address: When: Dixie Brandon [address] [place] [address] Business (1) Within 1 to 2 weeks Comments: Call for followup appointment With: Address: When: Jean Marie Mccullough [address] [facility] [place] [address] Business (1) 07/23/2023 1:45 PM With: Address: When: Michelle Figueroa [address] [place] [address] Business (1) 07/17/2023 10:00 AM With: Address: When: Jhonatan Yanira MULLER - [facility], [facility], [address], [place] [address] 07/11/2023 8:20 AM Type Location Start [facility] Office Visit [facility] 09/12/2023 3:30 PM 09/12/2023 3:45 PM Confirmed Patient Education Information: Cellulitis, Adult, Xyuc-fl-Vomv Normal [facility] Inpatient Patient Summaryon 07-10-2023 Inpatient Patient Summary [address] [address] Patient Discharge Instructions PERSON INFORMATION [...] up: With: Address: When: Dixie Brandon [address] [facility] [place] [address] Business (1) Within 1 to 2 weeks Comments: Call for followup appointment With: Address: When: Jean Marie Mccullough [address] [place] [address] Business (1) 07/23/2023 1:45 PM With: Address: When: Michelle Figuero[address] [place] [address] Business (1) 07/17/2023 10:00 AM With: Address: When: Jhonatan MULLER - [facility], [facility], [address], [place] [address] 07/11/2023 8:20 AM In the event that this physician does not participate in your insurance network, please consult with your insurance company to find a nearby participating provider. Type Location Start [facility] Office Visit [facility] [place] 09/12/2023 3:30 PM 09/12/2023 3:45 PM Confirmed Comment: PRO Acevedo SR, MICHAEL, have received the attached patient education materials/instructions and have verbalized understanding: Patient Signature Date Clinican/Nurse Signature _ Date HERE ARE THE MEDICATION CHANGES THAT OCCURRED DURING YOUR HOSPITAL STAY New Medications [facility], [address] [facility] [place], [place] [id number], [phone] linezolid (Zyvox 600 mg Tab) 1 Tablets [...] is very import (more content not included)... [facility] Interdisciplinary Note - Justin e Manageron 07-10-2023 Interdisciplinary Note - Telecine Operator Pt is asleep in bed, no [...] on Linzolid cost checked at pt preferred [facility], with his insurance was over $400, but with good rx will be down to $51.50 and they have in stock currently. Pt updated on cost and pt is ok with cost. Nursing updated on DC plan [facility] Comment on above: Result Comment: Elec tronically Signed By: Chasidy ALMAGUER, Alaina\.joelle\Date and Time Signed: 07/10/23 15:15 EDT Monitor Recordon 07-10-2023 Monitor Record [id number]#1.00 TIFF [facility] Monitor Record [id number]#1.00 TIFF [facility] Progress Note-Physicianon Progress Note-Physician Assessment/Plan [...] with IV Invanz and vancomycin. Seen by manager relocation and had a bedside incision and drainage of blister/bullae. Status post wound dressing. MRI does not show any deep tissue abscess of bone involvement/osteomyelit is. Infectious disease consult pending. Vascular surgery consult?can be done as outpatient. Ordered: [facility] Hospital Care/Day Moderate 35 Minutes 31268 2. Wound of right ankle (S91.001A: Unspecified open wound, right ankle, initial encounter) Continue wound dressings. Wound cultures so far not isolating any organisms. Ordered: [facility] Hospital Care/Day Moderate 35 Minutes 56280 Wound Culture 3. Acute kidney injury (N17.9: Acute kidney failure, unspecified) Acute kidney injury?secondary to ATN from above infection, diuretics and lisinopril. Improved. Lisinopril and hydrochlorothiazide suspended. Treated with IV fluid. Ordered: [facility] Hospital Care/Day Moderate 35 Minutes 26092 4. Obese (E66.9: Obesity, unspecified) Recommend therapeutic lifestyle modification changes. Ordered: [facility] Hospital Care/Day Moderate 35 Minutes 53567 5. HTN (hypertension) (I10: Essential (primary) hypertension) [...] made to ensure accuracy. However inadvertent computerized gateman errors may be present. Elvira Urena. Hospitalist. [...] (more content not included)... Normal [facility] Comment on above: Result Comment: Elec tronically Signed By: AYANNA SUH, Elvira\.br\Date and Time Signed: 07/10/23 12:09 EDT BMPon 07-09-2023 Anion gap [Moles/Vol] 8 mmol/L Normal 6-16 [facility] Comment on above: Performed By: #### 2 [id number] #### [facility] [address] [place] [address] Calcium [Mass/Vol] 8.2 mg/dL Low 8.9-11.1 [facility] Comment on above: Performed By: #### 2 290698 #### [facility] [address] [address] Chloride [Moles/Vol] 108 mmol/L Normal 101-111 [facility] Comment on above: Performed By: #### 2 568754 #### [facility] [address] [place] [address] CO2 [Moles/Vol] 27 mmol/L Normal 21-31 [facility] Comment on above: Performed By: #### 2 [id number] #### [facility] [address] [place] [address] Creatinine [Mass/Vol] 1.4 mg/dL High 0.5-1.3 [facility] Comment on above: Performed By: #### 2 545226 #### [facility] [address] [place] [address] Glucose [Mass/Vol] 109 mg/dL Normal 55-199 [facility] Comment on above: Performed By: #### 2 061632 #### [facility] [address] [place] [address] Potassium [Moles/Vol] 3.8 mmol/L Normal 3.5-5.3 [facility] Comment on above: Performed By: #### 2 [id number] #### [facility] [address] [place] [address] Sodium [Moles/Vol] 139 mmol/L Normal 135-145 [facility] Comment on above: Performed By: #### 2 630820 #### [facility] [address] [place] [address] Urea nitrogen [Mass/Vol] 16 mg/dL Normal 5-21 [facility] Comment on above: Performed By: #### 2 632530 #### [facility] [address] [place] [address] Urea nitrogen/Creatinine [Mass ratio] 11 No Units Normal 10-20 [facility] Comment on above: Performed By: #### 2 876825 #### [facility] [address] [place] [address] CHEMISTRYOrdered By: SYSTEM SYSTEM on 07-09-2023 Vanco [...] Justin e Manageron 07-09-2023 Interdisciplinary Note - Telecine Operator Pt is out of room for [...] CRM following for needs. Normal [facility] Comment on above: Result Comment: Elec [...] amount in ml's: 10 Normal [facility] MRI Tibia/Fibula w/ + w/o Co [...] osteomyelitis, or marrow replacing process. Joint: Large ksjyd-zm-mfts imaging of the knee with degenerative changes with subchondral cystic change, probable tearing of the medial lateral meniscus, probable tearing of ACL, but overall not well evaluated on the large xgyaz-lw-bseb. Muscle: Mild diffuse fatty infiltration of the [...] tendons grossly intact within limits of large mwzfo-ye-drlw. Small amount of increased fluid at the [...] amount in ml's: 10 Normal [facility] Message from Medicareon 06-20 Message from Medicare [id number] IFF Normal [facility] Message from Medicare [id number] IFF Normal [facility] Monitor Recordon 07-09-2023 Monitor Record [id number] TIFF Normal [facility] Monitor Record [id number]#1.00 TIFF Normal [facility] Monitor Record [id number]#1.00 TIFF Normal [facility] Monitor Record [id number]#1.00 TIFF Normal [facility] No Panel InformationOrdered By: Maty Felix on 07-09-2023 GS No organisms seen. [facility] Wound Culture Scant growth of Staphylococcus species coagulase negative [facility] Progress Note - Pharmacyon 0 07-09-2023 Progress [...] questions, please contact the pharmacy at extension [phone]. Age: 68 Years Allergies: aspirin Weight: Last [...] 27 mcg/mL (07/08/23 17:11:00) Normal [facility] Progress Note-Physicianon Progress Note-Physician Patient: JEAN [...] Problems Asymptomatic microscopic hematuria / SNOMED CT 0729450694 / Confirmed BPH with urinary obstruction / SNOMED CT 4194299087 / Confirmed kidney stones / SNOMED CT 149047527 / Confirmed, Active Problems (3) Asymptomatic microscopic [...] (more content not included)... Normal [facility] Comment on above: Result Comment: Elec tronically Signed By: Jhonatan Mariscal DPM\.br\Date and Time Signed: 07/09/23 17:30 EDT Progress [...] Infuse over 30 minute(s), 07/09/23 12:12:00 EDT [facility] Hospital Care/Day Moderate 35 Minutes 62339 2. Wound of right ankle (S91.001A: Unspecified open wound, right ankle, initial encounter) Present during this admission. Wound culture. MRI of the foot pending. Ordered: ertapenem + Sodium Chloride 0.9% intravenous solution 50 mL, 500 mg = 0.5 EA, IV Piggyback, Daily, Routine, Start date 07/10/23 9:00:00 EDT, 100 mL/hr, Infuse over 30 minute(s), 07/09/23 12:12:00 EDT [facility] Hospital Care/Day Moderate 35 Minutes 60099 Wound Culture 3. Acute kidney injury (N17.9: Acute kidney failure, unspecified) Acute kidney injury?secondary to ATN from above infection, diuretic and lisinopril. Improved. Avoid nephrotoxic drugs. Lisinopril and hydrochlorothiazide suspended. Treated with IV fluid. Ordered: [facility] Hospital Care/Day Moderate 35 Minutes 40519 4. Obese (E66.9: Obesity, unspecified) Recommend therapeutic lifestyle modification changes. Ordered: [facility] Hospital Care/Day Moderate 35 Minutes 88795 5. HTN (hypertension) (I10: Essential (primary) hypertension) [...] made to ensure accuracy. However inadvertent computerized gateman errors may be present. Elvira Urena. Hospitalist. [...] (more content not included)... Normal [facility] Comment on above: Result Comment: Elec tronically Signed By: AYANNA SUH, Elvira\.br\Date and Time Signed: 07/09/23 12:19 EDT RAD - MRI Screening Formon 0 07-09-2023 RAD - MRI Screening Form [id number] 0TIFF Normal [facility] Vanco Troughon 07-09-2023 Vanco Tr 9 microgram/mL Low 10-20 [facility] Comment on above: Performed By: #### 2 [id number] ####[facility] [address] [place] [address] eGFRon 07-09-2023 eGFR 55 mL/min/1.73 m2 Low >=59 [facility] Comment on above: Order Comment: Order added by Discern Expert. Performed By: #### 1 [id number] #### [facility] [address] [place] [address] BMPon 07-08-2023 Anion gap [Moles/Vol] 10 mmol/L Normal 6-16 [facility] Comment on above: Performed By: #### 2 491590 #### [facility] [address] [place] [address] Calcium [Mass/Vol] 8.2 mg/dL Low 8.9-11.1 [facility] Comment on above: Performed By: #### 2 765853 #### [facility] [address] [place] [address] Chloride [Moles/Vol] 107 mmol/L Normal 101-111 [facility] Comment on above: Performed By: #### 2 115133 #### [facility] [address] [place] [address] CO2 [Moles/Vol] 25 mmol/L Normal 21-31 [facility] Comment on above: Performed By: #### 2 189544 #### [facility] [address] [place] [address] Creatinine [Mass/Vol] 1.4 mg/dL High 0.5-1.3 [facility] Comment on above: Performed By: #### 2 762734 #### [facility] [address] [place] [address] Glucose [Mass/Vol] 110 mg/dL Normal 55-199 [facility] Comment on above: Performed By: #### 2 133607 #### [facility] [address] [place] [address] Potassium [Moles/Vol] 3.9 mmol/L Normal 3.5-5.3 [facility] Comment on above: Performed By: #### 2 846995 #### [facility] [address] [place] [address] Sodium [Moles/Vol] 138 mmol/L Normal 135-145 [facility] Comment on above: Performed By: #### 2 109296 #### [facility] [address] [place] [address] Urea nitrogen [Mass/Vol] 21 mg/dL Normal 5-21 [facility] Comment on above: Performed By: #### 2 859067 #### [facility] [address] [place] [address] Urea nitrogen/Creatinine [Mass ratio] 15 No Units Normal 10-20 [facility] Comment on above: Performed By: #### 2 883172 #### [facility] [address] [place] [address] CHEMISTRYOrdered By: SYSTEM SYSTEM on 07-08-2023 Vanco [...] Problems Asymptomatic microscopic hematuria / SNOMED CT 4893131174 / Confirmed BPH with urinary obstruction / SNOMED CT 3264028345 / Confirmed kidney stones / SNOMED CT 676993574 / Confirmed, Active Problems (3) Asymptomatic microscopic hematuria BPH with urinary obstruction kidney stones Objective Measurements from flowsheet : Measurements 07/08/2023 6:00 EDT Weight Measured 108.6 kg Vital Signs (last 24 hrs) Last Charted Temp Axillary 36.7 DegC (JULY 07:25) Heart Rate Monitored 81 bpm (JULY 07:26) SBP H 146 mmHg (JULY 07:25) DBP 79 mmHg (JULY 07:) Weight 108.6 kg (MAY 19 06:00) General: Alert and oriented. Cardiovascular: Good [...] (more content not included)... Normal [facility] Comment on above: Result Comment: Elec tronically Signed By: Jhonatan Mariscal DPM\.br\Date and Time Signed: 07/08/23 09:52 EDT Monitor Recordon 07-08-2023 Monitor Record [id number] TIFF Normal [facility] Progress Note-Physicianon Progress Note-Physician Subjective Day [...] control as needed Last for a.m. Ordered: [facility] Hospital Care/Day Moderate 35 Minutes 25243 2. Acute kidney injury (N17.9: Acute kidney failure, unspecified) Serum creatinine down to 1.4 FENa from yesterday was 1.8; may be intrinsic and he was taking HCTZ, lisinopril and Mobic in the outpatient setting which all have been held Ordered: [facility] Hospital Care/Day Moderate 35 Minutes 10566 Orders: Basic Metabolic Panel eGFR Extra Lav [...] (more content not included)... Normal [facility] Comment on above: Result Comment: Elec tronically Signed By: Dwight Eddy DO\Date and Time Signed: 07/08/23 12:44 EDT Vanco Peakon 07-08-2023 Vanco Pk 27 microgram/mL Normal 20-40 [facility] Comment on above: Order Comment: pleas e draw one hour after vancomycin infusion is complete Performed By: #### 2 [id number] #### [facility] [address] [place] [address] XR Foot 3+ Views Righton XR Foot [...] . DAP = . Normal [facility] XR Tib/Fib Right 2 Viewon XR [...] . DAP = . Normal [facility] eGFRon 07-08-2023 eGFR 55 mL/min/1.73 m2 Low >=59 [facility] Comment on above: Order Comment: Order added by Discern Expert. Performed By: #### 1 [id number] #### [facility] [address] [place] [address] BMPon 07-07-2023 Anion gap [Moles/Vol] 10 mmol/L Normal 6-16 [facility] Comment on above: Performed By: #### 2 865815 #### [facility] [address] [place] [address] Calcium [Mass/Vol] 8.2 mg/dL Low 8.9-11.1 [facility] Comment on above: Performed By: #### 2 755630 #### [facility] [address] [place] [address] Chloride [Moles/Vol] 106 mmol/L Normal 101-111 [facility] Comment on above: Performed By: #### 2 695074 #### [facility] [address] [place] [address] CO2 [Moles/Vol] 25 mmol/L Normal 21-31 [facility] Comment on above: Performed By: #### 2 254282 #### [facility] [address] [place] [address] Creatinine [Mass/Vol] 1.6 mg/dL High 0.5-1.3 [facility] Comment on above: Performed By: #### 2 329481 #### [facility] [address] [place] [address] Glucose [Mass/Vol] 103 mg/dL Normal 55-199 [facility] Comment on above: Performed By: #### 2 252069 #### [facility] [address] [place] [address] Potassium [Moles/Vol] 3.7 mmol/L Normal 3.5-5.3 [facility] Comment on above: Performed By: #### 2 188502 #### [facility] [address] [place] [address] Sodium [Moles/Vol] 137 mmol/L Normal 135-145 [facility] Comment on above: Performed By: #### 2 804760 #### [facility] [address] [place] [address] Urea nitrogen [Mass/Vol] 27 mg/dL High 5-21 [facility] Comment on above: Performed By: #### 2 314120 #### [facility] [address] [place] [address] Urea nitrogen/Creatinine [Mass ratio] 17 No Units Normal 10-20 [facility] Comment on above: Performed By: #### 2 270238 #### [facility] [address] [place] [address] CBC w/ Auto Diffon 4 Basophils/100 WBC (Bld) 0.5 % Normal 0.0-2.0 [facility] Comment on above: Performed By: #### 2 277444 #### [facility] [address] [place] [address] Basophils/Leukocytes Auto (Bld) [Pure # fraction] 0.0 E9/L Normal 0.0-0.2 [facility] Comment on above: Performed By: #### 2 884630 #### [facility] [address] [place] [address] Eosinophils (Bld) [#/Vol] 0.2 E9/L Normal 0.0-0.5 [facility] Comment on above: Performed By: #### 2 921209 #### [facility] [address] [place] [address] Eosinophils/100 WBC (Bld) 3.0 % Normal 0.0-8.0 [facility] Comment on above: Performed By: #### 2 806511 #### [facility] [address] [place] [address] Erythrocyte distribution width (RBC) [Ratio] 13.6 % Normal 10.9-14.2 [facility] Comment on above: Performed By: #### 2 919651 #### [facility] [facility] [address] [place] [address] Hematocrit (Bld) [Volume fraction] 40.6 % Normal 37.7-49.0 [facility] Comment on above: Performed By: #### 2 [id number] #### [facility] [address] [place] [address] Hemoglobin (Bld) [Mass/Vol] 13.8 g/dL Normal 13.5-17.5 [facility] Comment on above: Performed By: #### 2 [id number] #### [facility] [address] [place] [address] Lymphocytes (Bld) [#/Vol] 1.7 E9/L Normal 1.0-4.0 [facility] Comment on above: Performed By: #### 2 [id number] #### [facility] [address] [place] [address] Lymphocytes/100 WBC (Bld) 20.4 % Normal 14.0-50.0 [facility] Comment on above: Performed By: #### 2 [id number] #### [facility] [address] [place] [address] MCH (RBC) [Entitic mass] 32.2 pg Normal 27.0-34.0 [facility] Comment on above: Performed By: #### 2 [id number] #### [facility] [address] [place] [address] MCHC (RBC) [Mass/Vol] 34.1 g/dL Normal 31.4-36.0 [facility] Comment on above: Performed By: #### 2 [id number] #### [facility] [address] [place] [address] MCV (RBC) [Entitic vol] 94.5 fL Normal 80.0-100.0 [facility] Comment on above: Performed By: #### 2 [id number] #### [facility] [address] [place] [address] Monocytes (Bld) [#/Vol] 0.5 E9/L Normal 0.2-1.0 [facility] Comment on above: Performed By: #### 2 [id number] #### [facility] [address] [place] [address] Neutrophils (Bld) [#/Vol] 5.7 E9/L Normal 2.0-7.5 [facility] Comment on above: Performed By: #### 2 [id number] #### [facility] [address] [place] [address] Neutrophils/100 WBC (Bld) 69.7 % Normal 36.0-75.0 [facility] Comment on above: Performed By: #### 2 [id number] #### [facility] [address] [place] [address] Platelet mean volume (Bld) [Entitic vol] 8.6 fL Normal 6.4-10.8 [facility] Comment on above: Performed By: #### 2 [id number] #### [facility] [address] [place] [address] Platelets (Bld) [#/Vol] 205.0 E9/L Normal 150.0-500.0 [facility] Comment on above: Performed By: #### 2 [id number] #### [facility] [address] [place] [address] RBC (Bld) [#/Vol] 4.3 E12/L Normal 4.3-5.9 [facility] Comment on above: Performed By: #### 2 519098 #### [facility] [address] [place] [address] WBC corrected for nucl RBC Auto (Bld) [#/Vol] 8.1 E9/L Normal 4.0-11.0 [facility] Comment on above: Performed By: #### 2 [id number] #### [facility] [address] [place] [address] CHEMISTRYOrdered By: SYSTEM SYSTEM on 07-07-2023 Anion [...] Remisol Heme Monitor Recordon 07-07-2023 Monitor Record [id number] TIFF Normal [facility] Monitor Record [id number]#1.00 TIFF Normal [facility] Monitor Record [id number]#1.00 TIFF Normal [facility] Monitor Record [id number] TIFF Normal [facility] Monitor Record [id number]#1.00 TIFF Normal [facility] Monitor Record [id number]#1.00 TIFF Normal [facility] Progress Note-Physicianon Progress Note-Physician Subjective Detail [...] 05:35:00) Lymph Auto: 20.4 % (07/07/23 05:35:00) [place] Auto: 6.4 % (07/07/23 05:35:00) Eos Auto: 3 % (07/07/23 05:35:00) Basophil Auto: 0.5 % (07/07/23 05:35:00) Neutro Absolute: 5.7 E9/L (07/07/23 05:35:00) Lymph Absolute: 1.7 E9/L (07/07/23 05:35:00) [place] Absolute: 0.5 E9/L (07/07/23 05:35:00) Eos Absolute: [...] Ordered: Initial Hospital Care/Day Moderate 55 Minutes 06524 2. Acute kidney injury (N17.9: Acute kidney failure, unspecified) FENa 1.8 which may be intrinsic; patient was taking HCTZ and lisinopril which had been held and he was also taking Mobic Creatinine down to 1.6 Continue to trend Ordered: Initial Hospital Care/Day Moderate 55 Minutes [address] Orders: acetaminophen, 650 mg = 2 tab(s), Tab, Oral, q6hr PRN Pain, Routine, Start date 07/06/23 16:49:00 EDT, 07/06/23 16:49:00 EDT Al hydroxide/Mg hydroxide/simethicone, 30 mL, Susp-Or (more content not included)... Normal [facility] Comment on above: Result Comment: Elec tronically Signed By: Dwight Eddy DO\.br\Date and Time Signed: 07/07/23 14:55 EDT eGFRon 07-07-2023 eGFR 47 mL/min/1.73 m2 Low >=59 [facility] Comment on above: Order Comment: Order added by Discern Expert. Performed By: #### 1 [id number] #### [facility] [address] [place] [address] BMPon 07-06-2023 Anion gap [Moles/Vol] 12 mmol/L Normal 6-16 [facility] Comment on above: Performed By: #### 2 [id number] #### [facility] [address] [place] [address] Calcium [Mass/Vol] 8.6 mg/dL Low 8.9-11.1 [facility] Comment on above: Performed By: #### 2 545167 #### [facility] [address] [place] [address] Chloride [Moles/Vol] 104 mmol/L Normal 101-111 [facility] Comment on above: Performed By: #### 2 812690 #### [facility] [address] [place] [address] CO2 [Moles/Vol] 25 mmol/L Normal 21-31 [facility] Comment on above: Performed By: #### 2 [id number] #### [facility] [address] [place] [address] Creatinine [Mass/Vol] 1.8 mg/dL High 0.5-1.3 [facility] Comment on above: Performed By: #### 2 648931 #### [facility] [address] [place] [address] Glucose [Mass/Vol] 111 mg/dL Normal 55-199 [facility] Comment on above: Performed By: #### 2 564991 #### [facility] [address] [place] [address] Potassium [Moles/Vol] 3.5 mmol/L Normal 3.5-5.3 [facility] Comment on above: Performed By: #### 2 [id number] #### [facility] [address] [place] [address] Sodium [Moles/Vol] 137 mmol/L Normal 135-145 [facility] Comment on above: Performed By: #### 2 876809 #### [facility] [address] [place] [address] Urea nitrogen [Mass/Vol] 29 mg/dL High 5-21 [facility] Comment on above: Performed By: #### 2 746929 #### [facility] [address] [place] [address] Urea nitrogen/Creatinine [Mass ratio] 16 No Units Normal 10-20 [facility] Comment on above: Performed By: #### 2 095478 #### [facility] [address] [place] [address] CBC w/ Auto Diffon 4 Basophils/100 WBC (Bld) 0.4 % Normal 0.0-2.0 [facility] Comment on above: Performed By: #### 2 061350 #### [facility] [address] [place] [address] Basophils/Leukocytes Auto (Bld) [Pure # fraction] 0.0 E9/L Normal 0.0-0.2 [facility] Comment on above: Performed By: #### 2 723382 #### [facility] [address] [place] [address] Eosinophils (Bld) [#/Vol] 0.2 E9/L Normal 0.0-0.5 [facility] Comment on above: Performed By: #### 2 889271 #### [facility] [address] [place] [address] Eosinophils/100 WBC (Bld) 2.8 % Normal 0.0-8.0 [facility] Comment on above: Performed By: #### 2 040841 #### [facility] [address] [place] [address] Erythrocyte distribution width (RBC) [Ratio] 13.9 % Normal 10.9-14.2 [facility] Comment on above: Performed By: #### 2 607425 #### [facility] [address] [place] [address] Hematocrit (Bld) [Volume fraction] 46.2 % Normal 37.7-49.0 [facility] Comment on above: Performed By: #### 2 403756 #### [facility] [address] [place] [address] Hemoglobin (Bld) [Mass/Vol] 15.6 g/dL Normal 13.5-17.5 [facility] Comment on above: Performed By: #### 2 964701 #### [facility] [address] [place] [address] Lymphocytes (Bld) [#/Vol] 1.3 E9/L Normal 1.0-4.0 [facility] Comment on above: Performed By: #### 2 [id number] #### [facility] [address] [place] [address] Lymphocytes/100 WBC (Bld) 18.3 % Normal 14.0-50.0 [facility] Comment on above: Performed By: #### 2 406826 #### [facility] [address] [place] [address] MCH (RBC) [Entitic mass] 32.2 pg Normal 27.0-34.0 [facility] Comment on above: Performed By: #### 2 226265 #### [facility] [address] [place] [address] MCHC (RBC) [Mass/Vol] 33.7 g/dL Normal 31.4-36.0 [facility] Comment on above: Performed By: #### 2 043562 #### [facility] [address] [place] [address] MCV (RBC) [Entitic vol] 95.3 fL Normal 80.0-100.0 [facility] Comment on above: Performed By: #### 2 269326 #### [facility] [address] [place] [address] Monocytes (Bld) [#/Vol] 0.6 E9/L Normal 0.2-1.0 [facility] Comment on above: Performed By: #### 2 173577 #### [facility] [address] [place] [address] Neutrophils (Bld) [#/Vol] 4.9 E9/L Normal 2.0-7.5 [facility] Comment on above: Performed By: #### 2 400032 #### [facility] [address] [place] [address] Neutrophils/100 WBC (Bld) 70.2 % Normal 36.0-75.0 [facility] Comment on above: Performed By: #### 2 795566 #### [facility] [address] [place] [address] Platelet 189.0 E9/L Normal 150.0-500.0 [facility] Comment on above: Performed By: #### 2 529706 #### [facility] [address] [place] [address] Platelet mean volume (Bld) [Entitic vol] 8.5 fL Normal 6.4-10.8 [facility] Comment on above: Performed By: #### 2 579780 #### [facility] [address] [place] [address] RBC (Bld) [#/Vol] 4.8 E12/L Normal 4.3-5.9 [facility] Comment on above: Performed By: #### 2 339318 #### [facility] [address] [place] [address] WBC corrected for nucl RBC Auto (Bld) [#/Vol] 7.0 E9/L Normal 4.0-11.0 [facility] Comment on above: Performed By: #### 2 [id number] #### [facility] [address] [place] [address] CHEMISTRYOrdered By: SYSTEM SYSTEM on 07-06-2023 Sodium [Moles/Vol] 127 mmol/L Invalid Interpretation Code Remisol Chem U Creatinine 93.5 mg/dL Invalid Interpretation Code Remisol Chem Lactic Acid Lvl 1.0 mmol/L Normal 0.5 - 2.2 mmol/L Remisol Chem Consent for Treatmenton 06-19 Consent for Treatment [id number]#[id number] IFF Normal [facility] ED Clinical Summaryon 2023 ED Clinical Summary (Inserted Image. Denisha ble to display) [address] [address] ED Clinical Summary Person Information Name: JEAN MARIE MAST SR/[facility] Age: 68 Years : 1955 Sex: Male Language: Georgian PCP: Michelle Figueroa MD Marital Status: MRN: Visit Id: Visit Reason: Cellulitis - Leg; Lower leg pain-swelling; SENT BY DR MARISCAL, LEG PAIN Speciality: Acuity: 3 Enc Type: Inpatient Med Service: Emergency Arrival: 07/06/2023 12:00:42 Discharge: LOS: 000 03:16 Checkin: 07/06/2023 12:00:42 Checkout: 07/06/2023 15:16:48 Dispo Type: Admitted as IP to this [facility] EVENTS: Event Name Event Status Request [...] 14:38:53 Patient Care Request 07/06/2023 14:38:53 ADDRESS: [address] [place] [address] S [facility] [address] [facility] DOC NOTES: MEDICAL INFORMATION: Prescriptions Given: Medications [...] up: DIAGNOSIS: 1:Cellulitis of right leg Normal [facility] ED Note-Physicianon 07-06-19 ED Note-Physician Basic Information Time Seen: Curt VARGASFranki 07/06/2023 12:12 Chief Complaint pt reports he [...] made to ensure accuracy, however, inadvertently computerized gateman mistakes may be present. Appropriate healthcare PPE [...] (more content not included)... Normal [facility] Comment on above: Result Comment: Elec tronically Signed By: Franki Elias PA-C\.br\Date and Time Signed: 07/06/23 14:52 EDT\.br\Electronically Co-Signed By: Arnel Modi DO\.br\Date and Time Co-Signed: 07/06/23 15:54 EDT ED Patient Education Noteon 07-06-2023 ED Patient Education Note Normal [facility] ED Patient Summaryon 024 ED Patient Summary (Inserted Image. Denisha ble to display) [place] [id number] Patient Discharge Instructions Person Information Name: JEAN MARIE MAST SR Age: 68 Years Arrival Date: 07/06/2023 12:00:42 Discharge Diagnosis: 1:Cellulitis of right leg Primary Care Physician: Michelle Figueroa MD Provider Information Primary Provider: Arnel Modi DO [employer] Farmworker:Franki Elias PA-C The exam and treatment you received in the Emergency Department were for an urgent problem and are not intended as complete care. It is important that you follow up with a doctor, nurse practitioner, or physician?s litigation legal assistant for ongoing care. If your symptoms [...] opioids can be used to help relieve tuwdhpyz-fm-csetrt pain and are often prescribed following a [...] be struggling with addiction, tell your health health care manager and ask for guidance or call [facility] National Helpline at 5-488-651-UXTY. i Source: [place] Department of Health and Human Services/Center for Disease Control & Prevention [facility] Medications Given: Medicati (more content not included)... Normal [facility] HEMATOLOGYOrdered By: SYSTEM SYSTEM on 07-06-2023 [...] Lvl 1.0 mmol/L Normal 0.5-2.2 [facility] Comment on above: Performed By: #### 2 [id number] #### [facility] [address] [place] [address] No Panel InformationOrdered By: ANGPROCESSSERVER MICROBIOLOGY on 05-17-2024 Blood Culture Charcoal No growth at 4 da ys. Final to follow at 7 days. [facility] Blood Culture Charcoal No growth at 4 da ys. Final to follow at 7 days. [facility] Progress Note - Pharmacyon 0 07-06-2023 Progress [...] questions please contact the pharmacy at extension [phone]. Age: 68 Years Allergies: aspirin Weight: Last [...] 12:34:00) Lymph Auto: 18.3 % (07/06/23 12:34:00) [place] Auto: 8.3 % (07/06/23:34:00) Eos Auto: 2.8 % (07/06/23:34:00) Basophil Auto: 0.4 % (07/06/23:34:00) Neutro Absolute: 4.9 E9/L (07/06/23:34:00) Lymph Absolute: 1.3 E9/L (07/06/23:34:00) [place] Absolute: 0.6 E9/L (07/06/23:34:00) Eos Absolute: 0.2 E9/L (07/06/23:34:00) Basophil Absolute: 0 E9/L (07/06/23:34:00) Glucose Lvl: 111 mg/dL (07/06/23 12:34:00) BUN: 29 mg/dL High (07/06/23 12:34:00) Creatinine: 1.8 mg/dL High (07/06/23 12:34:00) eGFR: 41 mL/min/1.73 m2 Low (07/06/23 12:34:00) BUN/Creat Ratio: 16 (07/06/23 12:34:00) Sodium Lvl: 137 mmol/L (07/06/23:34:00) Potassium Lvl: 3.5 mmol/L (07/06/23:34:00) Chloride: 104 mmol/L (07/06/23 12:34:00) CO2: 25 mmol/L (07/06/23:34:00) AGAP: 12 mEq/L (07/06/23 12:34:00) Calcium Lvl: 8.6 mg/dL Low (07/06/23 12:34:00) Lactic Acid Lvl: 1 mmol/L (07/06/23 12:34:00) Normal [facility] U Creatinineon 07-06-2023 U Creatinine 93.5 mg/dL Invalid Interpretation Code [facility] Comment on above: Performed By: #### 2 [id number] #### [facility] [address] [place] [address] U Sodiumon 07-06-2023 Sodium [Moles/Vol] 127 mmol/L Invalid Interpretation Code [facility] Comment on above: Performed By: #### 2 [id number] #### [facility] [address] [place] [address] URINALYSISOrdered By: SYSTEM SYSTEM on 07-06-2023 Bilirubin [...] specific criteria set forth by [facility]. Glucose Ql (U) Negative Normal [...] Desc Random Urine (07/06/23 8:20 PM) Normal [facility] UA Auto SS Work Phone: Urinalysis with Microon 06-19 Bilirubin Ql (U) Negative Normal Negative [facility] Comment on above: Performed By: #### 4 [id number] #### [facility] [address] [place] [address] Clarity (U) Clear Normal Clear [facility] Comment on above: Performed By: #### 4 [id number] #### [facility] [address] [place] [address] Color (U) Light-Yellow Normal Yellow [facility] Comment on above: Result Comment: Micr oscopic readings are only performed on those samples that meet specific criteria set forth by [facility]. Performed By: #### 4 [id number] #### [facility] [address] [place] [address] Glucose Ql (U) Negative Normal Negative [facility] Comment on above: Performed By: #### 4 [id number] #### [facility] [address] [place] [address] Hemoglobin Auto test strip (U) [Mass/Vol] Negative Normal Negative [facility] Comment on above: Performed By: #### 4 [id number] #### [facility] [address] [place] [address] Ketones Auto test strip Ql (U) Negative Normal Negative [facility] Comment on above: Performed By: #### 4 [id number] #### [facility] [address] [place] [address] Leukocyte esterase Auto test strip Ql (U) Negative Normal Negative [facility] Comment on above: Performed By: #### 4 [id number] #### [facility] [address] [place] [address] Nitrite Auto test strip Ql (U) Negative Normal Negative [facility] Comment on above: Performed By: #### 4 [id number] #### [facility] [address] [place] [address] pH (U) 5.5 [pH] Invalid Interpretation Code 5.0-9.0 [facility] Comment on above: Performed By: #### 4 [id number] #### [facility] [address] [place] [address] Protein Ql (U) Trace Abnormal Negative [facility] Comment on above: Performed By: #### 4 [id number] #### [facility] [address] [place] [address] Specific gravity (U) [Rel density] 1.020 Invalid Interpretation Code 1.005-1.030 [facility] Comment on above: Performed By: #### 4 [id number] #### [facility] [address] [place] [address] Urobilinogen (U) [Mass/Vol] Negative Normal Negative [facility] Comment on above: Performed By: #### 4 [id number] #### [facility] [address] [place] [address] Type of Urine collection method Random Urine Normal [facility] Comment on above: Performed By: #### 4 [id number] #### [facility] [address] [place] [address] eGFRon 07-06-2023 eGFR 41 mL/min/1.73 m2 Low >=59 [facility] Comment on above: Order Comment: Order added by Discern Expert. Performed By: #### 1 [id number] #### [facility] [address] [place] [address] US LE Venous Duplex Righton 07-04-2023 US [...] [place] MD Transcribed by: LALY Technologist: SHERI [facility] Consent for Treatmenton 06-19 Consent for Treatment [id number] IFF [facility] Physician Orderon 07-03-2023 Physician Order [id number] FF [facility] Consenton 08-15-2022 Consent [id number]#1.00 CD:127 [facility] In office Testingon 08-16-19 23 In office Testing [id number]#1.00 CD:127 [facility] Registrationon 08-15-2022 Registration [id number]#1.00 CD:127 [facility] CHEMISTRYOrdered By: SYSTEM SYSTEM on 11-15-2021 Prostate specific Ag [Mass/Vol] 0.8 ng/mL Normal 0.1 - 3.5 ng/mL [facility] Remisol Vital Signs Date Time Vital Sign Value Performing Clinician Facility 08-15-2023 14:53-0400 Body height 185.42 cm [facility] 08-15-2023 14:530400 Body mass index (BMI) [Ratio] 31.4 kg/m2 [facility] 08-15-2023 14:530400 Body temperature 97.5 [degF] [facility] 08-15-2023 14:53040 Body weight 108 kg [facility] 08-15-2023 14:53-0400 Diastolic blood pressure 87 mm[Hg] [facility] 08-15-2023 14:53-0400 Heart rate 75 /min [facility] 08-15-2023 14:53-0400 Systolic blood pressure 135 mm[Hg] [facility] 07-25-2023 13:54-0400 Body height 185.42 cm [facility] 07-25-2023 13:54-0400 Body mass index (BMI) [Ratio] 31.6 kg/m2 [facility] 07-25-2023 13:54-0400 Body temperature 98.6 [degF] [facility] 07-25-2023 13:54-0400 Body weight 108.86 kg [facility] 07-25-2023 13:54-0400 Diastolic blood pressure 79 mm[Hg] [facility] 07-25-2023 13:54-0400 Heart rate 52 /min [facility] 07-25-2023 13:54-0400 Systolic blood pressure 142 mm[Hg] [facility] 07-10-2023 13:15-0400 Hourly Rounding Dwight Surjit [facility] 07-10-2023 12:29-0400 Hourly Rounding [employer] [facility] 07-10-2023 12:29-0400 Promise to Return [employer] [facility] 07-10-2023 12:01-0400 Heart rate 79 /min [employer] [facility] 07-10-2023 12:01-0400 SaO2% (BldA) [Mass fraction] 95 % [employer] [facility] 07-10-2023 12:00-0400 Body temperature 97.34 [degF] Dwight [employer] [facility] 07-10-2023 12:00-0400 Diastolic blood pressure 86 mm[Hg] Dwight Orellanaer [facility] 07-10-2023 12:00-0400 Mean blood pressure 105 mm[Hg] Dwight Orellanaer [facility] 07-10-2023 12:00-0400 Systolic blood pressure 142 mm[Hg] Dwight Orellanaer [facility] 07-10-2023 11:11-0400 Hourly Rounding Dwight Orellanaer [facility] 07-10-2023 11:11-0400 Promise to Return Dwight Orellanaer [facility] 07-10-2023 10:08-0400 Promise to Return Dwight Orellanaer [facility] 07-10-2023 07:51-0400 Heart rate 74 /min Dwight Orellanaer [facility] 07-10-2023 07:51-0400 SaO2% (BldA) [Mass fraction] 94 % Dwight Orellanaer [facility] 07-10-2023 07:50-0400 Diastolic blood pressure 81 mm[Hg] Dwight Orellanaer [facility] 07-10-2023 07:50-0400 Mean blood pressure 106 mm[Hg] Dwight Boxcker [facility] 07-10-2023 07:50-0400 Systolic blood pressure 154 mm[Hg] Dwight Boxcker [facility] 07-10-2023 07:50-0400 Body temperature 98.24 [degF] Dwight Boxcker [facility] 07-10-2023 00:10-0400 Blood Pressure Location Dwight Orellanaer [facility] 07-10-2023 00:10-0400 Body temperature 98.24 [degF] Dwight Eddy [facility] 07-10-2023 00:10-0400 Diastolic blood pressure 69 mm[Hg] Dwight Orellanaer [facility] 07-10-2023 00:10-0400 Heart rate 83 /min Dwight Orellanaer [facility] 07-10-2023 00:10-0400 Mean blood pressure 92 mm[Hg] Dwight Eddy [facility] 07-10-2023 00:10-0400 Respiratory rate 18 /min Dwight Eddy [facility] 07-10-2023 00:10-0400 SaO2% (BldA) [Mass fraction] 93 % Dwight Eddy [facility] 07-10-2023 00:10-0400 Systolic blood pressure 139 mm[Hg] Dwight Eddy [facility] 07-09-2023 19:25-0400 Heart rate 80 /min Dwight Eddy [facility] 07-09-2023 19:21-0400 Respiratory rate 16 /min Dwight Eddy [facility] 07-09-2023 19:21-0400 Body temperature 98.06 [degF] Dwight Eddy [facility] 07-09-2023 19:21-0400 Mean blood pressure 91 mm[Hg] Dwight Orellanaer [facility] 07-09-2023 05:51-0400 Blood Pressure Location Dwight Surjit [facility] 07-09-2023 05:51-0400 Body temperature 98.24 [degF] Dwight Eddy [facility] 07-09-2023 05:51-0400 Heart rate 73 /min Dwight Eddy [facility] 07-09-2023 05:51-0400 Mean blood pressure 96 mm[Hg] Dwight Eddy [facility] 07-09-2023 05:51-0400 Respiratory rate 18 /min Dwight Eddy [facility] 07-09-2023 00:10-0400 Blood Pressure Location Dwight Eddy [facility] 07-09-2023 00:10-0400 Body temperature 98.42 [degF] Dwight Eddy [facility] 07-09-2023 00:10-0400 Heart rate 69 /min Dwight Eddy [facility] 07-09-2023 00:10-0400 Mean blood pressure 91 mm[Hg] Dwight Eddy [facility] 04-02-2023 13:09-0500 Body height 185.4 cm Gerald Padilla MD Work Phone: [facility] 04-02-2023 13:09-0500 Body mass index (BMI) [Ratio] 31.14 kg/m2 Gerald Padilla MD Work Phone: [facility] 04-02-2023 13:09-0500 Body weight 107.05 kg Gerald Padilla MD Work Phone: [facility] 04-02-2023 13:09-0500 Diastolic blood pressure 77 mm[Hg] Gerald Padilla MD Work Phone: [facility] 04-02-2023 13:09-0500 Systolic blood pressure 137 mm[Hg] Gerald Padilla MD Work Phone: [facility] 03-21-2023 14:55-0500 Body height 185.4 cm Cynthia Pocos DO Work Phone: [facility] 03-21-2023 14:55-0500 Body mass index (BMI) [Ratio] 31.14 kg/m2 Cynthia Pocos DO Work Phone: [facility] 03-21-2023 14:55-0500 Body weight 107.05 kg Cynthia Pocos DO Work Phone: [facility] 11-21-2021 08:55-0400 Blood Pressure Location Taras BARBA [facility] 11-21-2021 08:55-0400 Diastolic blood pressure 111 mm[Hg] Taraslawanda BARBA [facility] 11-21-2021 08:55-0400 Heart rate 73 /min Taras BARBA [facility] 11-21-2021 08:55-0400 Respiratory rate 16 /min Taras BARBA [facility] 11-21-2021 08:55-0400 Systolic blood pressure 148 mm[Hg] Taras BARBA [facility] Encounters Encounter Date Encounter Type Care Provider Facility Start: 09-12-2023 ambulatory Taras BARBA Facility :[facility] Start: 08-27-2023 End: 08-27-2023 ambulatory JHONATAN MARISCAL Not Available Start: 08-16-2023 End: 08-16-2023 ambulatory MICHELLE FIGUEROA Not Available Start: 08-16-2023 End: 08-16-2023 ambulatory DO Jose Manuel Figueroa Facility:[facility] Start: 08-15-2023 End: 08-15-2023 ambulatory [facility] Work Phone: Start: 08-15-2023 End: 08-15-2023 Patient encounter procedure [facility] Work Phone: Start: 08-06-2023 End: 08-07-2023 Pre-admission assessment Dixie Brandon [facility] Start: 07-27-2023 End: 07-27-2023 ambulatory JHONATAN D DOLCE Not Available Start: 07-25-2023 End: 07-25-2023 ambulatory [facility] Work Phone: Start: 07-25-2023 End: 07-25-2023 Patient encounter procedure [facility] Work Phone: Start: 07-18-2023 End: 07-18-2023 ambulatory JHONATAN D DOLCE Not Available Start: 07-17-2023 End: 07-17-2023 ambulatory MICHELLE FIGUEROA Not Available Start: 07-11-2023 End: 07-11-2023 ambulatory JHONATAN D DOLCE Not Available Start: 07-06-2023 End: 07-10-2023 Evaluation and management of inpatient Elvira URENA Facility:[facility] Start: 07-06-2023 Emergency department patient visit Arnel Modi Facility:[facility] Start: 07-06-2023 End: 07-10-2023 Evaluation and management of inpatient Dwight YenArti Eddy [facility] Start: 07-04-2023 End: 07-04-2023 ambulatory JHONATAN D DOLCE Not Available Start: 07-03-2023 End: 07-04-2023 ambulatory Jhonatan D Dolce Facility:[facility] Start: 07-03-2023 End: 07-03-2023 Patient encounter procedure Jhonatan D Dolce [facility] Start: 07-03-2023 End: 07-03-2023 ambulatory JHONATAN D DOLCE Not Available Start: 06-26-2023 End: 06-26-2023 ambulatory MICHELE MERRITT Not Available Start: 06-19-2023 End: 06-19-2023 ambulatory [...] Not Available Start: 05-02-2023 End: 05-02-2023 ambulatory RAFAEL POCOS Not Available Start: 05-01-2023 End: 05-01-2023 ambulatory CHRIS MOREIRA Not Available Start: 04-24-2023 End: 04-24-2023 ambulatory LIZBETH DATK Not Available Start: 04-23-2023 End: 04-23-2023 ambulatory JHONATAN D DOLCE Not Available Start: 04-16-2023 End: 04-17-2023 ambulatory SHERIEVITALY HOUGH Not Available Start: 04-10-2023 End: 04-10-2023 ambulatory ENRIQUETA SOSA Not Available Start: 04-10-2023 End: 04-10-2023 ambulatory SHERIE HOUGH Not Available Start: 04-02-2023 End: 04-03-2023 ambulatory SHERIE HOUGH Not Available Start: 04-02-2023 Bamboo flowsheet Gerald martinez MD Work Phone: [facility] Start: 04-02-2023 Bamboo flowsheet Gerald martinez MD [facility] Start: 04-02-2023 End: 04-02-2023 Office outpatient new 30 minutes Gerald Padilla MD Work [facility] Comment on above: Bilateral tinnitus ( Primary Dx); Sensorineural hearing loss (SNHL), bilateral Start: 04-02-2023 End: 04-02-2023 ambulatory GERALD PADILLA Not Available Start: 03-30-2023 Chart abstracting Gerald rodriguez MD Work Phone: [facility] Start: 03-26-2023 Chart abstracting Cynthia Puga s DO Work Phone: [facility] Start: 03-21-2023 End: 03-21-2023 ambulatory CYNTHIA Parrish POCOS Not Available Start: 03-21-2023 End: 03-21-2023 Patient encounter procedure Cynthia Parrish Pocos DO Work Phone: [facility] Comment on above: Hip pain, bilateral (Primary Dx); Left hip pain; Lumbar spondylosis; Degeneration of lumbar intervertebral disc; Trochanteric bursitis of both hips; Left hip impingement syndrome; Right hip impingement syndrome Start: 03-21-2023 End: 03-21-2023 ambulatory CYNTHIA Parrish POCOS Not Available Start: 03-20-2023 End: 03-20-2023 ambulatory DEIDRA MONTOYA Not Available Start: 03-13-2023 End: 03-13-2023 ambulatory MICHELLE Yen CAROLINA Not Available Start: 02-27-2023 End: 02-27-2023 ambulatory JHONATAN D DOLCE Not Available Start: 02-09-2023 End: 02-09-2023 ambulatory JHONATAN D DOLCE Not Available Start: 08-15-2022 End: 08-16-2022 ambulatory [facility] Facility:[facility] Start: 11-21-2021 End: 11-21-2021 Patient encounter procedure Taras BARBA [facility] Start: 11-15-2021 End: 11-15-2021 Patient encounter procedure Taras BARBA [facility] Procedures Date Procedure Procedure Detail Performing Clinician Start: 03-21-2023 End: 03-21-2023 Radex spine lumbosacral 2/3 views Rafael Pocos DO Work Phone: Start: 09-08-2015 Cysto, left ureteral stent removal, left RGP, left ureteronephroscopy with Holmium laser ablation, multiple basket extraction of stone,fragments, replacement of JJ ureteral stent under fluoroscopic guidance. Taras JAMESON Start: 08-04-2015 Cystoscopy Taras ROSENBERG TERESA Comment on above: Left Stent Insertion Hernia of abdominal cavity (disorder) Taras BARBA Plan of Treatment Date Care Activity Detail Author Start: 06-08-2023 Medicare Annual Wellness (AWV) Medicare Annual Wellness (AWV) [facility] Start: 04-23-2023 End: 04-23-2023 Patient encounter procedure 04/23/2023 3:45 PM EST Office Visit [facility] [address] [place] [place] [id number] Cynthia Cruz DO [address] [place] [address] [facility] Start: 04-02-2023 End: 04-02-2023 ambulatory 04/02/2023 6:00 PM EST Evaluation [facility] [address] [place] [id number] Sherie Hough, PT [address] [place] [address] [facility] Start: 04-02-2023 End: 04-02-2023 Patient encounter procedure [facility] Comment on above: Arrived Start: 10-20-2022 Influenza vaccination Influenza Vacc ine (#1) [facility] Start: 02-23-2021 Pneumococcal Vaccine : 65+ Years (1 - PCV) Pneumococcal Vaccine: 65+ Years (1 - PCV) [facility] Start: 1955 Screening for malign ant neoplasm of colon [facility] XR Lumbar spine 2 or 3 Views XR lumbar spine 2 or 3 views Imaging Routine Hip pain, bilateral 03/21/2023 2:51 PM EST [facility] XR Pelvis AP and Hip - bilateral GE 2 Views XR hips bilateral 2 views Imaging Routine Hip pain, bilateral 03/21/2023 2:51 PM EST [facility] Work Phone: Immunizations Immunization Date Immunization Notes Care Provider Mercedes perez 07-11-2013 tetanus toxoid, redu troy diphtheria toxoid, and acellular pertussis vaccine, adsorbed Taras BARBA [facility] Payers Date Payer Category Payer Unknown [employer] [place] [employer] [place] [employer] [id number] 2022-Present [address] [place] [address] [id number] 2021 Medicare [id number] 2021 Medicare MEDICARE MEDICAR E PART B [id number] 2021-[place] [address] Medicare [id number] 2021 Medicare [id number] 1955 Unknown [id number] 2.16.840.1.751088.3.579.2.727 1956 Unknown [id number] 2.16.840.1.502353.3.579.2.727 1956 Unknown [id number] 2.16.840.1.651605.3.579.2.727 1956 Unknown [id number] 2.16.840.1.483924.3.579.2.727 1956 Unknown [id number] 2.16.840.1.169936.3.579.2.125 9 1956 Unknown [id number] 2.16.840.1.153833.3.579.2.125 9 1956 Unknown [id number] 2.16.840.1.450037.3.579.2.125 9 1956 Unknown [id number] 2.16.840.1.741774.3.579.2.125 9 1956 Unknown [id number] 2.16.840.1.499389.3.579.2.125 9 1956 Unknown [id number] 2.16.840.1.952234.3.579.2.125 1956 Unknown [id number] 2.16.840.1.499991.3.579.2.125 1956 Unknown [id number] 2.16.840.1.851824.3.579.2.125 1956 Unknown [id number] 2.16.840.1.542732.3.579.2.125 1956 Unknown [id number] 2.16.840.1.535378.3.579.2.125 1956 Unknown [id number] 2.16.840.1.265871.3.579.2.125 1956 Unknown [id number] 2.16.840.1.739005.3.579.2.125 1956 Unknown [id number] 2.16.840.1.972093.3.579.2.125 1956 Unknown [id number] 2.16.840.1.264119.3.579.2.125 1956 Unknown [id number] 2.16.840.1.028194.3.579.2.125 1956 Unknown [id number] 2.16.840.1.623609.3.579.2.125 1956 Unknown [id number] 2.16.840.1.152099.3.579.2.125 1956 Unknown [id number] 2.16.840.1.678100.3.579.2.125 1956 Unknown [id number] 2.16.840.1.524660.3.579.2.125 1956 Unknown [id number] 2.16.840.1.284648.3.579.2.125 9 1956 Unknown [id number] 2.16.840.1.477721.3.579.2.125 9 1956 Unknown [id number] 2.16.840.1.809135.3.579.2.125 9 1956 Unknown [id number] 2.16.840.1.774941.3.579.2.125 9 1956 Unknown [id number] 2.16.840.1.630440.3.579.2.125 9 1956 Unknown [id number] 2.16.840.1.507370.3.579.2.125 9 1956 Unknown [id number] 2.16.840.1.670832.3.579.2.125 1956 Unknown [id number] 2.16.840.1.049304.3.579.2.125 9 1956 Unknown [id number] 2.16.840.1.346030.3.579.2.125 9 1956 Unknown [id number] 2.16.840.1.561720.3.579.2.125 1956 Unknown [id number] 2.16.840.1.363732.3.579.2.125 1956 Unknown [id number] 2.16.840.1.992678.3.579.2.125 1956 Unknown [id number] 2.16.840.1.221251.3.579.2.125 1956 Unknown [id number] 2.16.840.1.369078.3.579.2.125 1956 Unknown [id number] 2.16.840.1.616550.3.579.2.125 9 Unknown Regular Insurance [id number] Social History Date Type Detail Facility Start: 11-26-2019 End: 08-12-2022 Tobacco smoking status Ex-smoker (finding) [facility] Tobacco smoking status Never [facility] Start: 08-04-2022 End: 03-21-2023 Sex Assigned At Male [facility] End: 02-19-1989 History of tobacco use Current [...] soda/pop, energy drinks, tea [facility] Start: 1955 Sex Assigned At Not on file [facility] Start: 07-25-2023 Tobacco smoking status NHIS Never smoked tobacco (finding) [facility] Start: 1955 Sex Assigned At Male [facility] NEGATED: Highlighted rowStart: NINF History of tobacco use Passive smoker [facility] Healthcare Functional Status Date Assessment Result Facility 07-06-2023 Functional Status N/A [facility] 07-06-2023 Functional Status [facility] 11-21-2021 Functional Status N/A [facility] Clinical Notes 11-21-2021 to 07-13-2023 Note Date & Type Note Facility 07-13-2023 Note Microbiology PROCEDURE: Blood Culture Charcoal [R1] SOURCE: Blood BODY SITE: Hand R COLLECTED DATE/TIME: 07/06/2023 12:25 EDT RECEIVED DATE/TIME: 07/06/2023 13:00 EDT START DATE/TIME: 07/06/2023 13:00 EDT FREE TEXT SOURCE: Franki Elias PA-C, PA-C, Jansen FINAL REPORTS Final Report [] Verified Date/Time: 07/13/2023 15:00 EDT No growth at 7 days. Performing Locations R1: This test was performed at: [facility], [address] [place] [address], [address] [place] [address], [phone] [address] Comment on above: Performed By: #### 1 [id number] #### [facility] [address] [place] [address] 07-13-2023 Note Microbiology PROCEDURE: Blood Culture Charcoal [R1] SOURCE: Blood BODY SITE: Arm L COLLECTED DATE/TIME: 07/06/2023 12:34 EDT RECEIVED DATE/TIME: 07/06/2023 13:01 EDT START DATE/TIME: 07/06/2023 13:01 EDT FREE TEXT SOURCE: Franki Elias PA-C, PA-C, Jansen FINAL REPORTS Final Report [] Verified Date/Time: 07/13/2023 15:00 EDT No growth at 7 days. Performing Locations R1: This test was performed at: [facility], [address] [place] [address], [address] [place] [address], [address] [place] [address] Comment on above: Performed By: #### 1 [id number] #### [facility] [address] [place] [address] 07-11-2023 Note Microbiology PROCEDURE: Wound Culture [R1] SOURCE: Wound BODY SITE: Ankle R COLLECTED DATE/TIME: 07/09/2023 12:52 EDT RECEIVED DATE/TIME: 07/09/2023 13:01 EDT START DATE/TIME: 07/09/2023 13:01 EDT FREE TEXT SOURCE: AYANNA SUH, Elvira Anders MD FINAL REPORTS Final Report [] Verified Date/Time: 07/11/2023 12:05 EDT Scant growth of Staphylococcus species coagulase negative STAINS Gram Stain Report [] Verified Date/Time: 07/09/2023 14:15 EDT No organisms seen. Performing Locations R1: This test was performed at: [facility], [address] [place] [address], [id number] , [place], [facility] Comment on above: Performed By: #### 2 [id number] #### [facility] [address] [place] [address] 07-10-2023 Note Admission and Discha rge Information Admit Date/Time:07/06/2023 14:36 Admitting Physician - Dwight Eddy DO Consulting Physician - Sadia Shannon, Jean Marie Mariscal DPM, Jhonatan Brandon MD, Dixie F. Admitting Diagnoses: Discharge Order Date Discharge [...] (08/04/2015), Abdominal hernia. 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 He was subsequently admitted to [facility] with acute cellulitis of the right leg secondary to infected right ankle wound and suspected erysipelas. He was also admitted with Acute kidney injury secondary to ATN from infection, meloxicam, hydrochlorothiazide and lisinopril.. He was treated with IV Invanz, IV vancomycin, IV fluid, as needed pain medications. He was seen in consultation by the infectious disease specialist as well as the manager relocation. High Lift Operator did a bedside incision and drainage [...] Patient to follow-up with infectious disease specialist, manager relocation as well as his primary care physician accordingly. He will also follow-up with the vascular surgeon. New medication: Zyvox 600 mg twice daily x 2 weeks. Medications discontinued: Hydrochlorothiazide Meloxicam Services Consulted Consult to Infectious Disease Physician - Ordered -- 07/09/23 17:27:00 EDT, Cellulitis right leg, Consult and Co-manage Consult to High Lift Operator - Ordered -- 07/06/23 16:50:00 EDT, [...] 07/23/2023 (more content not included)... [facility] Comment on above: Result Comment: Elec tronically Signed By: AYANNA SUH, Elvira\.br\Date and Time Signed: 07/10/23 15:51 EDT 07-10-2023 Hospital Discharge instructions Patient Education 07/10/2023 15:22:59 Cellulitis, Adult, Aijw-dz-Zeac Cellulitis, Adult Cellulitis is a skin infection. [...] Follow these instructions at home: Medicines Take fneg-yse-jwhaqgi and prescription medicines only as told by [...] provider. Document Revised: 11/17/2021 Document Reviewed: 11/17/2021 [employer] Patient Education 2022 [employer]. Follow Up Care 07/06/2023 12:01:51 With:Dixie Brandon Address: [address] [place] [address]- Business (1) When:1 to 2 weeks Comments:Call for followup appointment With:Jean Marie Mccullough Address: [address] [place] [address] Business (1) When:07/23/2023 13:45:00 With:Michelle Figueroa Address: [address] [place] [address]- Business (1) When:07/17/2023 10:00:00 With:Jhonatan Mariscal Address: [facility] [address] [place] [address]- When:07/11/2023 08:20:00 [facility] 07-10-2023 Evaluation + Plan note Extrac des [...] PM EDT [address] [place] [address]- Business (1) Additional Instructions: Michelle Figueroa 07/17/2023 10:[address] EDT [address] [place] [address]- Business (1) Additional Instructions: Jhonatan Mariscal 07/11/2023 08:20 AM EDT [facility] [address] [place] [address]- Additional Instructions: Dixie Brandon Within 1 to 2 weeks [address] [place] [address]- Business (1) Additional Instructions: Call for followup appointment Cellulitis, Adult, Iawf-hm-Akgw Extracted from: Title:Infection Admission H&P * Author:Jean [...] with IV Invanz and vancomycin. Seen by manager relocation and had a bedside incision and drainage of blister/bullae. Status post wound dressing. MRI does not show any deep tissue abscess of bone involvement/osteomyelitis. Infectious disease consult pending. Vascular surgery consult can be done as outpatient. Ordered: [facility] Hospital Care/Day Moderate 35 Minutes 26074 2. Wound of right ankle (S91.001A: Unspecified open wound, right ankle, initial encounter) Continue wound dressings. Wound cultures so far not isolating any organisms. Ordered: [facility] Hospital Care/Day Moderate 35 Minutes 57064 Wound Culture 3. Acute kidney injury (N17.9: Acute kidney failure, unspecified) Acute kidney injury secondary to ATN from above infection, diuretics and lisinopril. Improved. Lisinopril and hydrochlorothiazide suspended. Treated with IV fluid. Ordered: [facility] Hospital Care/Day Moderate 35 Minutes 61454 4. Obese (E66.9: Obesity, unspecified) Recommend therapeutic lifestyle modification changes. Ordered: [facility] Hospital Care/Day Moderate 35 Minutes [id number] 5. HTN (hypertension) (I10: Essential (primary) hypertension) [...] made to ensure accuracy. However inadvertent computerized gateman errors may be present. Elvira Urena. Hospitalist. [...] disease. Extracted from: Title:APSO Note Author:AYANNA SUH, Elvira [...] Infuse over 30 minute(s), 07/09/23 12:12:00 EDT [facility] Hospital Care/Day Moderate 35 Minutes [id number] 2. Wound of right ankle (S91.001A: Unspecified open wound, right ankle, initial encounter) Present during this admission. Wound culture. MRI of the foot pending. Ordered: ertapenem + Sodium Chloride 0.9% intravenous solution 50 mL, 500 mg = 0.5 EA, IV Piggyback, Daily, Routine, Start date 07/10/23 9:00:00 EDT, 100 mL/hr, Infuse over 30 minute(s), 07/09/23 12:12:00 EDT [facility] Hospital Care/Day Moderate 35 Minutes 21377 Wound Culture 3. Acute kidney injury (N17.9: Acute kidney failure, unspecified) Acute kidney injury secondary to ATN from above infection, diuretic and lisinopril. Improved. Avoid nephrotoxic drugs. Lisinopril and hydrochlorothiazide suspended. Treated with IV fluid. Ordered: [facility] Hospital Care/Day Moderate 35 Minutes [id number] 4. Obese (E66.9: Obesity, unspecified) Recommend therapeutic lifestyle modification changes. Ordered: [facility] Hospital Care/Day Moderate 35 Minutes [id number] 5. HTN (hypertension) (I10: Essential (primary) hypertension) [...] made to ensure accuracy. However inadvertent computerized gateman errors may be present. Elvira Urena. Hospitalist. [...] control as needed Last for a.m. Ordered: [facility] Hospital Care/Day Moderate 35 Minutes [id number] 2. Acute kidney injury (N17.9: Acute kidney failure, unspecified) Serum creatinine down to 1.4 FENa from yesterday was 1.8; may be intrinsic and he was taking HCTZ, lisinopril and Mobic in the outpatient setting which all have been held Ordered: [facility] Hospital Care/Day Moderate 35 Minutes [id number] Orders: Basic Metabolic Panel eGFR Extra Lav [...] Ordered: Initial Hospital Care/Day Moderate 55 Minutes 68097 2. Acute kidney injury (N17.9: Acute kidney failure, unspecified) FENa 1.8 which may be intrinsic; patient was taking HCTZ and lisinopril which had been held and he was also taking Mobic Creatinine down to 1.6 Continue to trend Ordered: Initial Hospital Care/Day Moderate 55 Minutes [id number] Orders: acetaminophen, 650 mg = 2 tab(s), [...] Diet CBC w/ Auto Diff Consult to High Lift Operator Creatinine Urine eGFR Notify Provider Vital [...] Diet CBC w/ Auto Diff Consult to High Lift Operator Creatinine Urine Notify Provider Vital Signs [...] 03:30:00 PM Scheduled Provider:Taras BARBA MD Location:[facility] Appointment Type:URO Office Visit Diagnostic Tests Pending * Vancomycin Level Trough 07/12/23 Future Scheduled Tests Laboratory* PSA Total 11/21/22 * Basic Metabolic Panel 07/17/23 Radiology* XR Abdomen 1 View 11/21/22 [facility]05-17-2024 NoteBasic Information Admit Date/Time:07/06/2023 14:38 Chief Complaint [...] initially his leg on Sunday felt like kujb-dyj-tezcewp. 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 He quit smoking 43 years ago [...] 12:34:00) Lymph Auto: 18.3 % (07/06/23 12:34:00) [place] Auto: 8.3 % (07/06/23 12:34:00) Eos Auto: 2.8 % (07/06/23 12:34:00) Basophil Auto: 0.4 % (07/06/23 12:34:00) Neutro Ab (more content not included)...[facility]Result Comment: Electronically Signed By: Dwight Eddy DO\Date and Time Signed: 07/06/23 17:41 [id number] History of Present illness Narrative* Gerald Padilla [...] History: Procedure Laterality Date HERNIA REPAIR 2012 [place] REMOVAL OF KIDNEY STONE 2016 x3 Allergies [...] [id number] History of Present illness Narrative* Carlotta Morrison [...] History: Procedure Laterality Date HERNIA REPAIR 2013 [place] REMOVAL OF KIDNEY STONE 2016 x3 FAMILY [...] to Dr. Michelle Figueroa. documented in this encounterS[facility] [id number] Hospital Discharge instructions Patient Education 11/21/2021 09:20:07 Kidney Stones, Gpst-bb-Tuca Kidney Stones Kidney stones are rock-like masses [...] Follow these instructions at home: Medicines Take cmja-lch-jbgbanp and prescription medicines only as told by [...] 07/24/2008 Document Revised: 06/24/2019 Document Reviewed: 06/24/2019 [employer] Patient Education 2019 [employer] Follow Up Care 01/24/2021 08:12:17 With:Taras BARBA MD, URL Address: [address] [place] [phone] When:Within 18 Month(s) Comments:w/psa and kub [facility] Evaluation + Plan note Future Appointments Appointment Date:11/21/2021 08:45:00 AM Scheduled Provider:Taras BARBA MD Location:[facility] App[facility] Future Appointments Appointment Date:05/21/2023 08:00:00 AM Scheduled Provider:Taras BARBA MD Location:[facility] Appointment Type:URO Office Visit Future Scheduled Tests Laboratory* PSA Total 11/21/22 Radiology* XR Abdomen 1 View 11/21/22 [facility] Evaluation + Plan note Future Appointments Appointment Date:09/12/2023 03:30:00 PM Scheduled Provider:Taras BARBA MD Location:[facility] Appointment Type:URO Office Visit Future Scheduled Tests Laboratory* PSA Total 11/21/22 Radiology* XR Abdomen 1 View 11[facility]21/22 [facility] Future Appointments Appointment Date:09/12/2023 03:30:00 PM Scheduled Provider:Taras BARBA MD Location:[facility] Appointment Type:URO Office Visit Future Scheduled Tests Laboratory* PSA Total 11/21/22 * Basic Metabolic Panel 07/17/23 Radiology* XR Abdomen 1 View 11/21/22 [facility]* Diagnosis Hip pain, bilateral- Primary Pain [...] loss (SNHL), bilateral documented in this encounter [facility] HealthcareEvaluation noteNo assessment information availableSelect [facility] Work Phone: Evaluation note* Diagnosis Onset Date Resolution Status Erysipelas of right lower extremity acute [facility] Work Phone: Hospital course Narrative No data available for this section [facility] No data available for this section [facility] No data available for this section [facility] Reason for Referral Specialty Diagnoses / Procedures Referred By Contac t Referred To Contact Physical Therapy Diagnoses Hip pain, bilateral Left hip pain Lumbar spondylosis 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 Procedures [place] OFFICE/OUTPATIENT NEW HIGH MDM 60 MINUTES Cynthia Cruz, DO [address] [place] [address] Cynthia Ramirez, PT [address] [facility] [place] [address] Referral ID Status Reason Start Date Expiration Date Visits Requested Visits Authorized [id number] Authorized Consult and Treat 03/21/2023 09/17/2023 10 10 Summary Purpose Family History No Family History Records Found Advance Directives No Advanced Directives Records Found Advance Directive Response Recorded Date/ Time Advance Directives No July 24 1:47pm Chief Complaint and Reason for Visit Chief Complaint post hosp ft Chief Complaint post hosp [facility] Patient here for a 3 week f/u Reason for Visit Erysipelas of right lower extremity Additional Source Comments Reason for Visit (unrecogniz ed section and content) Reason Comments Pain Specialty Diagnoses / Procedures Referred By Contac t Referred To Contact Orthopaedic Surgery Diagnoses Left hip pain Michelle Figueroa MD [address] [place] [address] Cynthia Cruz, DO [address] [place] [address] Referral ID Status Reason Start Date Expiration Date V isits Requested Visits Authorized [id number] Closed Specialty Services Required 03/13/2023 09/09/2023 1 [...] Michelle Figueroa MD Address: Address: [address] [facility] [place] [address] Straight Ruling Machine Operator Relationship Specialty Start Date End Date Michelle Figueroa MD [address] [place] [id number] PCP - General Family Medicine 07/05/22 [place] [id number] PCP - ACO Reach 07/13/22 (unrecognized sect [...] CREATED AUTHOR AUTHOR'S ORGANIZ ATION 07/10/2023 [facility] DATE CREATED AUTHOR AUTHOR'S ORGANIZ ATION 07/11/2023 [facility] DATE CREATED AUTHOR AUTHOR'S ORGANIZ ATION 07/13/2023 [facility] DATE CREATED AUTHOR AUTHOR'S ORGANIZ ATION 07/15/2023 [facility] DATE CREATED AUTHOR AUTHOR'S ORGANIZ ATION 08/23/2023 [facility] DATE CREATED AUTHOR AUTHOR'S ORGANIZ ATION 08/27/2023 [facility] Goals (unrecognized section and content) Goals may [...] BE BASED ON THE PRIMARY CLINICAL RECORDS. [employer] provides no warranty or guarantee of the accuracy or completeness of information in this document.
[2023-09-04 07:49] VITALS: BP 130/86; O2SAT 98; BMI 29.3
--- NOTE | 2023-09-04 07:49 | V.VEINS.HP ---
Vital Signs 09/04/23 07:49 Height 6 ft Weight 98 kg BMI 29.3 BP 130/86 BP Location Left Brachial BP Position Sitting BP Cuff Size Adult BP Source Manual Cuff Respiration 18 Pulse Oximetry (%) 98 Comment The patient's blood pressure is elevated. Varicose Veins Patient in this day for follow up ultrasound post EVLT of right leg SSV. Ari Acevedo MD personally performed the services described in this documentation, as scribed by Marita Quinones RVT, RDMS in my presence and it is both accurate and complete. Marita Acevedo RVT, RDMS, am scribing for, and in the presence of, Dr. Ari Wilson and in the presence of the patient. thigh: bilateral, knee: bilateral, calf: bilateral and ankle: bilateral aching, burning, sharp and other (itching) 10 2 years Worsened in recent months: Yes standing and sitting analgesics, elevating extremities and compression stockings Reports erythema, firmness, heaviness, limb pain, edema, leg edema and other (cellulitis, ulcer) History of lower extremity trauma: No Superficial thrombophlebitis: Yes Family history of varicose veins: no Has patient had previous lower extremity venous surgery: No Patient has previously received the following treatment(s) for lower extremity varicose veins: Reports none Does patient have a history of : not applicable Does patient intend to have future pregnancies: not applicable Has patient had lower extremity venous scan with relux testing: Yes Support hose used: Yes Problems walking or doing physical activity: Yes How does it affect you: unable to stand for periods of time Do you walk much: Yes Do you stand much: Yes Medication compliance: good Large amounts of Vitamin K: No Review of Systems ROS Narrative Ari Acevedo MD personally performed the services described in this documentation, as scribed by Marita Quinones RVT, RDMS in my presence and it is both accurate and complete. Marita Acevedo RVT, RDMS, am scribing for, and in the presence of, Dr. Ari Wilson and in the presence of the patient. Status of ROS 10 or more systems reviewed and unremarkable except as noted in history and below Cardiovascular Reports: edema and swelling of feet/ankles Musculoskeletal Reports: extremity pain, extremity swelling, joint pain, joint swelling, muscle cramps and muscle weakness Integumentary/Breast Reports: itching, redness, skin pain, skin tenderness, skin swelling, sores (right distal medial), non-healing lesion (right distal medial) and changes in skin color (hemosiderin staining) Hematologic/Lymphatic Reports: easy bruising [facility] Medical History (Updated 08/20/23 @ 08:45 by Esther Sy) Phlebitis and thrombophlebitis of superficial vessels of right lower extremity ?I80.01 - Phlebitis and thrombophlebitis of superficial vessels of right lower extremity (ICD-10) Phlebitis and thrombophlebitis of superficial vessels of left lower extremity ?I80.02 - Phlebitis and thrombophlebitis of superficial vessels of left lower extremity (ICD-10) Varicose veins of bilateral lower extremities with pain ?I83.813 - Varicose veins of bilateral lower extremities with pain (ICD-10) Hernia ?K46.9 - Unspecified abdominal hernia without obstruction or gangrene (ICD-10) Abscess ?L02.91 - Cutaneous abscess, unspecified (ICD-10) Cellulitis ?L03.90 - Cellulitis, unspecified (ICD-10) Kidney stone ?N20.0 - Calculus of kidney (ICD-10) Hypertension ?I10 - Essential (primary) hypertension (ICD-10) Gout ?M10.9 - Gout, unspecified (ICD-10) Surgical History (Updated 08/20/23 @ 08:45 by Esther Sy) Status post ablation of incompetent vein using laser ?Z98.890 - Other specified postprocedural states (ICD-10) History of hernia repair ?Z98.890 - Other specified postprocedural states (ICD-10) ?Z87.19 - Personal history of other diseases of the digestive system (ICD-10) Family History (Updated 08/20/23 @ 08:48 by Esther Sy) Father Family history of cancer Family history of diabetes mellitus Mother Family history of hypertension Social History (Updated 08/20/23 @ 08:49 by Esther Sy) Within the past year, how often did you have a drink containing alcohol: monthly or less Smoking status: Former smoker What tobacco products do you use: cigarettes Packs per day: 0.5 Years smoked: 20 Smoking pack-years: 10.00 Smoking quit date/years: >15 years ago Non-prescribed substance use: denies use Meds Home Medications and Allergies Home Medications ?Medication ?Instructions ?Recorded ?Confirmed ?Type Lactobacillus acidophilus 10 100 mmu cells PO DAILY 08/20/23 08/20/23 History billion cell capsule (Probacap) allopurinol 200 mg tablet 200 mg PO DAILY 08/20/23 08/20/23 History amlodipine 5 mg tablet 5 mg PO DAILY 08/20/23 08/20/23 History linezolid 600 mg tablet 600 mg PO BID 08/20/23 08/20/23 History Allergies Allergy/AdvReac Type Severity Reaction Status Date / Time aspirin Allergy Unknown Verified 08/10/23 17:07 Exam Narrative Exam Narrative: IAri MD personally performed the services described in this documentation, as scribed by Marita Quinones RVT, RDMS in my presence and it is both accurate and complete. Marita Acevedo RVT, RDMS, am scribing for, and in the presence of, Dr. Ari Wilson and in the presence of the patient. Constitutional Documenting provider has reviewed patient's vital signs: yes Common normals: oriented x3 General appearance: cooperative Lymph Lymphatic: no lymphedema noted Chest Common normals: inspection of chest normal Respiratory Common normals: normal respiratory effort Cardio Rate: regular rate Rhythm: regular rhythm Peripheral pulses: posterior tibial pulses present and dorsalis pedis pulses present GI Common normals: Normal to inspection, nondistended, normoactive bowel sounds present Extremity General: calf tenderness, edema (Right lower extremity edema significantly improved) and other findings (Non-healing ulcer right distal medial lower leg) Right lower extremity: lower leg Right lower leg: inspection Left lower extremity: lower leg Left lower leg: inspection Neuro Common normals: oriented x3 Results Imaging Venous US: Radiologist's impression: The ultrasound demonstrates heat induced thrombus 2.2 cm from SPJ. The heat induced thrombus extends from SPJ to distal calf. Assessment and Plan Assessment and Plan (1) Phlebitis and thrombophlebitis of superficial vessels of right lower extremity: (2) Varicose veins of bilateral lower extremities with pain: Plan Patient in today for follow up ultrasound of lower extremity following treatment of EVLT of right leg SSV completed on 08/31/2023. The plan is to return for EVLT of right leg perforators.
--- NOTE | 2023-09-04 07:56 | W.VEIN ---
Discharge Plan Discharge Disposition: Home, Self-Care Outpatient Diagnostics: VC Endovenous Perf Ablation RT (Routine) Timeframe: 2 Weeks Facility: [facility] - Location: [facility] Ordered By: Ari Wilson Follow Up Appointments: 09/14/2023 Plan of Treatment: EVLT of right leg dumper operator veins. Print Language: Frisian Discharge Date/Time: 09/04/23 08:00
== END 2023-09-04 08:00 | disposition home or self-care (01) ==
PROVIDERS: PCP Radiology Diagnostic Radiology; Visit Provider Radiology Diagnostic Radiology
DX: I83.813 Varicose veins of bilateral lower extremities with pain (principal)
CPT/HCPCS: 93971; G0463

== ENCOUNTER 2023-09-14 08:25 | Outpatient (OUT) | payer MEDICARE, OTHER, SELFPAY ==
[2023-09-14] MEDS: LIDOCAINE HCL 20 ML, SODIUM BICARBONATE 2 MEQ INJ (08:26)
--- NOTE | 2023-09-14 08:26 | VEIN_ITS ---
[address] [address] Patient Name: JEAN MARIE MAST MRN: [id number] date: 1955 Sex: M Assigned Patient Location: Current Patient Location: Accession/Order Number: [id number] Exam Date: 09/14/2023 08:32 Report Date: 09/14/2023 10:30 At the request of: CYNTHIA BOWMAN Procedure: VC Endovenous Perf Ablation RT EXAMINATION: VC Endovenous Perf Ablation RT COMPARISON: INDICATIONS: I83.813 - Varicose veins of bilateral lower extremities w... OPERATIVE REPORT: Diagnosis: Superficial venous reflux, incompetent perforating veins Procedure: Endovenous laser ablation of the right wind commissioning technician(s) Procedure: The patient was positioned supine on the table and the leg was prepped and draped to allow for visualization during venous access. A sterile cover was draped over a 16 mhz ultrasound probe. Venous mapping was performed prior to the procedure noting location and size of vessel(s). Ceramic Chemist vein 1: Mid medial lower right leg. The diameter of the vein ranged from 4 mm's below the muscular fascia to 4 mm's at the entry point. Using a 30 gauge needle the entry site was anesthetized with 1 cc of 1% buffered lidocaine. Access was gained percutaneously, with a 21-gauge needle, into the wind commissioning technician vein under ultrasound guidance. The needle was advanced into the desired position and the pre-measured 400-micron fiber was then inserted into the needle and locked in place. The position of the fiber was imaged with ultrasound guidance. The fiber tip was visualized to be 10 mm from the deep vessel. An anesthetic solution of 6 cc 1% buffered lidocaine was delivered along the course of the vein under ultrasound guidance using a syringe. A final positioning check of the laser fiber tip was performed. The laser was activated by means of a foot-pedal and the fiber and needle were withdrawn together in accordance to the desired joules per treatment area/spot weld. 3 areas/spot welds were performed, and the total number of joules delivered was 183. The total time of energy delivery was 23 seconds. A duplex ultrasound revealed compressibility and flow of the deep system immediately after the procedure. Hemostasis of the access site was achieved and dressed. A 20-30 mm compression stocking over coban was placed on the treated leg. Post-Op instructions were given, and a follow-up appointment was made. Ceramic Chemist vein 2: Proximal medial lower right leg. The diameter of the vein ranged from 3 mm's below the muscular fascia to 4 mm's at the entry point. Using a 30 gauge needle the entry site was anesthetized with 1 cc of 1% buffered lidocaine. Access was gained percutaneously, with a 21-gauge needle, into the wind commissioning technician vein under ultrasound guidance. The needle was advanced into the desired position and the pre-measured 400-micron fiber was then inserted into the needle and locked in place. The position of the fiber was imaged with ultrasound guidance. The fiber tip was visualized to be 10 mm from the deep vessel. An anesthetic solution of 8 cc 1% buffered lidocaine was delivered along the course of the vein under ultrasound guidance using a syringe. A final positioning check of the laser fiber tip was performed. The laser was activated by means of a foot-pedal and the fiber and needle were withdrawn together in accordance to the desired joules per treatment area/spot weld. 3 areas/spot welds were performed, and the total number of joules delivered was 181. The total time of energy delivery was 23 seconds. A duplex ultrasound revealed compressibility and flow of the deep system immediately after the procedure. Hemostasis of the access site was achieved and dressed. A 20-30 mm compression stocking over coban was placed on the treated leg. Post-Op instructions were given, and a follow-up appointment was made. CONCLUSION: 1. Technically successful endovenous laser ablation of 2 lower right leg wind commissioning technician veins Electronically authenticated by: MERCED LO Date: 09/14/2023 10:30
--- OUTSIDE RECORDS SUMMARY | 2023-09-14 08:28 | XMS_ITS | CCD ---
Author Organization [facility] Care Team Providers Care Corporate Services Manager Name Role Phone NONE, XXXX Primary Care Physician Unavailab Michelle Ace MD Primary Care Provider Michelle Figueroa MD Unavailable Michelle Figueroa Primary Care Physician DO Jose Manuel Figueroa Attending Unavailable Elvira WALLER Attending Unavailable Dwight Eddy Admitting Unavailable Dolce, Jhonatan Richardson Consulting Unavailable Dolce, JULIETH Richardson Consulting Unavailable Dolce, Jhonatan Richardson Consulting Unavailable Dolce, Jhonatan Richardson Consulting Unavailable Dolce, Jhonatan Richardson Consulting Unavailable Dolce, Jhonatan Richardson Consulting Unavailable Dolce, Jhonatan Richardson Consulting Unavailable Dolce, Jhonatan Richardson Consulting Unavailable Dolce, Jhonatan Richardson Consulting Unavailable Dolce, Jhonatan Richardson Consulting Unavailable Dolce, Jhonatan Richardson Consulting Unavailable Blank, Jean Marie S Consulting Unavailable Blank, MArtiD Jean Marie S Consulting Unavailable Blank, Jean Marie S Consulting Unavailable Blank, Jean Marie S Consulting Unavailable Blank, Jean Marie S Consulting Unavailable Blank, Jean Marie S Consulting Unavailable Blank, Jean Marie S Consulting Unavailable Blank, Jean Marie S Consulting Unavailable Blank, Jean Marie S Consulting Unavailable Blank, Jean Marie S Consulting Unavailable Taras BARBA Attending Unavailable Taras BARBA Admitting Unavailable Michelle Figueroa Attending Unavailable Michelle Figueroa Admitting Unavailable Michelle Figueroa Attending Unavailable Michelle Figueroa Admitting Unavailable Taras BARBA Attending Unavailable Taras BARBA Admitting Unavailable DolJhonatan castaneda Referring Unavailable Dolce, Jhonatan Richardson Attending Unavailable DolJhonatan castaneda Admitting Unavailable Arnel Modi Attending Unavailable Taras BARBA Attending Unavailable DOLJHONATAN CASTANEDA Attending Unavailable MICHELLE FIGUEROA Attending Unavailable DEIDRA MONTOYA Attending Unavailable MICHELLE FIGUEROA Referring Unavailable POCOS, CYNTHIA Parrish Referring Unavailable POCOS, CYNTHIA Parrish Referring Unavailable POCOS, CYNTHIA Parrish Attending Unavailable FIGUEROA, MICHELLE Barlow Referring Unavailable TIMMISGERALD Attending Unavailable GIANLUCA, SHERIE Ortiz Attending Unavailable POCOS, CYNTHIA Parrish Referring Unavailable HOUGH, SHERIE Ortiz Attending Unavailable POCOS, CYNTHIA Parrish Referring Unavailable BROWN, ENRIQUETA Parrish Attending Unavailable BROWN, ENRIQUETA Parrish Referring Unavailable SHERIE HOUGH Attending Unavailable POCOS, [...] (1 source) Aspirin; Translations: [aspirin] Drug Allergy [facility] Repository (10 sources) Aspirin; Translations: [aspirin] Drug Allergy Unknown (qualifier value) [facility] (7 sources) Aluminum aspirin Drug Allergy 3 Hives [facility] Medications Current Medications Medication Drug Class(es) Dates Sig (Normalized) Sig (Original) acetaminophen 325 mg oral tablet (5 sources) Start: 07-10-2023 take 2 tablets by mouth every six hours as needed for pain acetaminophen 325 mg Tab 650 mg = 2 tab(s), Oral, q6hr, PRN Pain, Refills(s) 0 Start Date: 07/10/23 Status: Ordered Acidophilus Extra Strength oral capsule (5 sources) Start: 07-06-2023 take 1 capsule by mouth once daily Acidophilus Extra Strength oral capsule 1 cap(s), Oral, Daily, Refill(s) 0 Start Date: 07/06/23 Status: Ordered allopurinol 200 mg oral tablet (17 sources) Xanthine Oxidase Inhibitor Start: 07-25-2023 take 200 mg by mouth once daily Allopurinol Active 200 MG PO Daily July 25, 2023 12:00am Start: 11-26-2019 take 2 tablets by mo [facility] once daily allopurinol 100 mg Tab 200 mg = 2 tab(s), Oral, Daily, Refills(s) 0 Start Date: 11/26/19 Status: Ordered allopurinol (Zyl oprim) 100 MG tablet 1 (one) time each day at the same time. 0 Active amLODIPine 5 mg oral tablet (14 sources) Dihydropyridine Calcium Channel Andres Start: 02-09-2023 End: 02-09-2024 take 1 tablet by mouth once daily amLODIPine 5 mg Tab 5 mg = 1 tab(s), Oral, Daily, # 30 tab(s), Refills(s) 0 Start Date: 07/06/23 Status: Ordered Centrum Silver (3 sources) Start: 08-03-2015 Centrum Silver Refill(s) 0, Prophylaxis Start Date: 08/03/15 Status: Ordered furosemide 40 mg oral tablet (3 sources) Loop Diuretic Start: 11-26-2019 furosemide 40 mg Tab 40 mg = 1 tab(s), Oral, As Directed, prn swelling, Refills(s) 0 Start Date: 11/26/19 Status: Ordered hydroCHLOROthiazide 25 mg oral tablet (9 sources) Thiazide Diuretic Start: 09-12-2023 hydrochlorothiazide 25 mg Tab Refills(s) 0 Start Date: 09/12/23 Status: Ordered Start: 07-19-2022 take 1 tablet by kirby in the morning hydroCHLOROthiazide (HYDRODiuril) 25 MG [...] day(s), # 28 tab(s), Refills(s) 0, Pharmacy: [facility], 185.4, cm, 07/06/23 12:13:00 EDT, Height/Length Dosing, 109.4, kg, 07/06/23 12:13:00 EDT, Weight Dosing Start Date: 07/10/23 Stop Date: 07/24/23 Status: Ordered lisinopril 40 mg oral tablet (17 sources) Angiotensin Converting Enzyme Inhibitor Start: 07-06-2023 take 1 tablet by mouth once daily lisinopril 40 mg Tab 40 mg = 1 tab(s), Oral, Daily, # 90 tab(s), Refills(s) 0 Start Date: 07/06/23 Status: Ordered Start: 11-26-2019 take 2 tablets by mo [facility] once daily lisinopril 20 mg [...] omeprazole 20 mg delayed release oral capsule (17 sources) Proton Pump Inhibitor Start: 07-06-2023 take 1 capsule by mouth once daily omeprazole 20 mg Cap-DR 20 [...] Twice daily July 25, 2023 12:00am Problems Problem Classification Problem Date Documented Date Episodic/Chronic Acute and unspecified renal failure (3 sources) Acute renal failure syndrome; Translations: [Acute kidney failure, unspecified] Onset: 07-06-2023 Episodic Calculus of urinary tract (20 sources) Kidney stone; Translations: [Calculus of kidney] Onset: 11-21-2021 10-04-2018 Episodic Esophageal disorders (7 sources) Gastroesophageal reflux disease without esophagitis; Translations: [Gastro-esophageal reflux disease without esophagitis] Onset: 08-04-2022 08-04-2022 Chronic Essential hypertension (16 sources) Hypertensive disorder; Translations: [Essential hypertension] Onset: 08-04-2022 09-05-2009 Chronic Genitourinary symptoms and ill-defined conditions (9 sources) Microscopic hematuria; Translations: [Asymptomatic microscopic hematuria] Onset: 11-21-2021 Episodic Gout and other crystal arthropathies (8 sources) Gout 08-01-2015 Chronic Hyperplasia of prostate (18 sources) Benign prostatic hypertrophy with outflow obstruction; [...] Episodic Other diseases of kidney and ureters (4 sources) Urinary tract obstruction; Translations: [Other obstructive [...] Obesity; Translations: [Obesity, unspecified] Onset: 07-09-2023 Chronic Other screening for suspected conditions (not mental disorders or infectious disease) (2 sources) Raised prostate specific antigen; Translations: [Elevated prostate specific antigen [PSA]] Onset: 09-12-2023 Episodic Skin and subcutaneous tissue infections (4 sources) Cellulitis of lower limb; Translations: [Cellulitis of right lower limb] Onset: 07-06-2023 Episodic Spondylosis; intervertebral disc disorders; other back problems (4 sources) Lumbar spondylosis; Translations: [Spondylosis without myelopathy or radiculopathy, lumbar region] 03-21-2023 Chronic Unclassified (8 sources) Asymptomatic microscopic hematuria 11-26-2019 Results Test Name Value Interpretation Reference Range Facility XR Abdomen 1 Viewon 09-05-19 24 XR Abdomen 1 View Exam Date/Time: 09/04/2023 09:48 EDT Reason for Exam: N20.0;Kidney stone Report IMPRESSION: Nonspecific bowel gas pattern Calculi overlying the inferior pole of the right renal shadow EXAMINATION: Abdomen CLINICAL HISTORY: Nephrolithiasis COMPARISONS: November 15, 2021 0659 hours FINDINGS: 2 views abdomen are submitted. Bowel gas seen both large and small bowel. Bowel gas seen to the level of the distal colon. There is stool scattered throughout the large bowel. The bowel gas pattern is nonspecific nonobstructive. There is a 3 to 4 mm calculi overlying the inferior pole of the right renal shadow. Unchanged Calculi in left hemipelvis. Unchanged. Likely vascular calcification Ordering Provider: Taras BARBA FINAL REPORT Dictated: 09/05/2023 2:02 pm Pilo Mo Signed (Electronic Signature): 09/05/2023 2:02 pm Signed by: Pilo Mo Transcribed by: LALY Technologist: PERI Technical Comments Radiation Dose: Ka,r in mGy = . DAP = . Normal [facility] CHEMISTRYOrdered By: SYSTEM SYSTEM on 09-04-2023 Albumin [Mass/Vol] 4.0 g/dL Normal 3.3 - 5.0 gm/dL Remisol Chem Albumin/Globulin [Mass ratio] 1.4 {ratio} Normal 1.1 - 2.2 Remisol Chem ALP [Catalytic activity/Vol] 94 [iU]/d Normal 21 - 98 Int._Unit/L Remisol Chem ALT No additional P-5'-P [Catalytic activity/Vol] 16 [iU]/d Normal 6 - 46 Int._Unit/L Remisol Chem Anion gap [Moles/Vol] 11 mmol/L Normal 6 - 16 mEq/L R emisol Chem AST [Catalytic activity/Vol] 15 [iU]/d Normal 5 - 43 Int._Unit/L Remisol Chem Bilirubin [Mass/Vol] 0.4 mg/dL Normal 0.0 - 1 .1 mg/dL [facility] Calcium [Mass/Vol] 9.5 mg/dL Normal 8.9 - 11. 1 mg/dL [facility] Chloride [Moles/Vol] 110 mmol/L Normal 101 - 1 11 mmol/L [facility] CO2 [Moles/Vol] 25 mmol/L Normal 21 - 31 mmol/L [facility] Creatinine [Mass/Vol] 1.5 mg/dL High 0.5 - 1.3 mg/dL [facility] eGFR 51 mL/min/1.73 m2 Low >=59mL/min /1 .73 m2 [facility] Globulin (S) [Mass/Vol] 2.9 g/dL Normal 1.4 - 4.0 gm/dL [facility] Glucose [Mass/Vol] 108 mg/dL Normal 55 - 199 mg/dL [facility] Potassium [Moles/Vol] 4.6 mmol/L Normal 3.5 - 5.3 mmol/L [facility] Prostate specific Ag [Mass/Vol] 1.3 ng/mL Normal 0.1 - 3.5 ng/mL [facility] Comment on above: Interpretive Data: T he concentration of PSA determined by different manufacturers can vary due to differences in assay methods and reagent specificity. Values obtained from different assay methods cannot be used interchangeably. The methodology used for this result was chemiluminescence using [employer]'s Access Hybritech PSA reagent. Protein [Mass/Vol] 6.9 g/dL Normal 6.0 - 7.8 gm/dL [facility] Sodium [Moles/Vol] 141 mmol/L Normal 135 - 145 mmol/L [facility] Urea nitrogen [Mass/Vol] 23 mg/dL High 5 - 21 mg/dL [facility] Chem Urea nitrogen/Creatinine [Mass ratio] 15 mg/mg Normal 10 - 20 Remisol Chem CMPon 09-04-2023 Albumin [Mass/Vol] 4.0 g/dL Normal 3.3-5.0 [facility] Comment on above: Performed By: #### 2 [id number] #### [facility] [address] [place] [address] Albumin/Globulin (S) [Mass conc ratio] 1.4 Normal 1.1-2.2 [facility] Comment on above: Performed By: #### 2 [id number] #### [facility] [address] [place] [address] ALP [Catalytic activity/Vol] 94 Int._Unit/L Normal 21-98 [facility] Comment on above: Performed By: #### 2 [id number] #### [facility] [address] [place] [address] ALT No additional P-5'-P [Catalytic activity/Vol] 16 Int._Unit/L Normal 6-46 [facility] Comment on above: Performed By: #### 2 [id number] #### [facility] [address] [place] [address] Anion gap [Moles/Vol] 11 mmol/L Normal 6-16 [facility] Comment on above: Performed By: #### 2 [id number] #### [facility] [address] [place] [address] AST [Catalytic activity/Vol] 15 Int._Unit/L Normal 5-43 [facility] Comment on above: Performed By: #### 2 [id number] #### [facility] [address] [place] [address] Bilirubin [Mass/Vol] 0.4 mg/dL Normal 0.0-1.1 [facility] Comment on above: Performed By: #### 2 [id number] #### [facility] [address] [place] [address] Calcium [Mass/Vol] 9.5 mg/dL Normal 8.9-11.1 [facility] Comment on above: Performed By: #### 2 [id number] #### [facility] [address] [place] [address] Chloride [Moles/Vol] 110 mmol/L Normal 101-111 [facility] Comment on above: Performed By: #### 2 [id number] #### [facility] [address] [place] [address] CO2 [Moles/Vol] 25 mmol/L Normal 21-31 [facility] Comment on above: Performed By: #### 2 [id number] #### [facility] [address] [place] [address] Creatinine [Mass/Vol] 1.5 mg/dL High 0.5-1.3 [facility] Comment on above: Performed By: #### 2 [id number] #### [facility] [address] [place] [address] Globulin (S) [Mass/Vol] 2.9 g/dL Normal 1.4-4.0 [facility] Comment on above: Performed By: #### 2 [id number] #### [facility] [address] [place] [address] Glucose [Mass/Vol] 108 mg/dL Normal 55-199 [facility] Comment on above: Performed By: #### 2 [id number] #### [facility] [address] [place] [address] Potassium [Moles/Vol] 4.6 mmol/L Normal 3.5-5.3 [facility] Comment on above: Performed By: #### 2 [id number] #### [facility] [address] [place] [address] Protein [Mass/Vol] 6.9 g/dL Normal 6.0-7.8 [facility] Comment on above: Performed By: #### 2 [id number] #### [facility] [address] [place] [address] Sodium [Moles/Vol] 141 mmol/L Normal 135-145 [facility] Comment on above: Performed By: #### 2 [id number] #### [facility] [address] [place] [address] Urea nitrogen [Mass/Vol] 23 mg/dL High 5-21 [facility] Comment on above: Performed By: #### 2 [id number] #### [facility] [address] [place] [address] Urea nitrogen/Creatinine [Mass ratio] 15 No Units Normal 10-20 [facility] Comment on above: Performed By: #### 2 [id number] #### [facility] [address] [place] [address] PSA Totalon 09-04-2023 Prostate specific Ag [Mass/Vol] 1.3 ng/mL Normal 0.1-3.5 [facility] Comment on above: Result Comment: The concentration of PSA determined by different manufacturers can vary due to differences in assay methods and reagent specificity. Values obtained from different assay methods cannot be used interchangeably. The methodology used for this result was chemiluminescence using [employer]'s Access Hybritech PSA reagent. Performed By: #### 1 [id number] #### [facility] [address] [place] [address] eGFRon 09-04-2023 eGFR 51 mL/min/1.73 m2 Low >=59 [facility] Comment on above: Order Comment: Order added by Discern Expert. Performed By: #### 1 [id number] #### [facility] [address] [place] [address] Referrals Officeon Referrals Office [id number] TIFF Normal [facility] General Message Officeon General Message Office --- --- --- --- - -- --- --- --- --- From: Lida DirectInbox To: JEAN MARIE MAST SR Sent: 07/11/23 02:31:06 AM EDT Subject: Discharge Summary Ready to View A summary regarding your recent visit is available in the Documents section of your health record. Normal [facility] Consultation Noteon 07-10-19 Consultation Note Patient: [...] Problems Asymptomatic microscopic hematuria / SNOMED CT 3839565350 / Confirmed BPH with urinary obstruction / SNOMED CT 2832449974 / Confirmed kidney stones / SNOMED CT 195939846 / Confirmed Histories Past Medical History: Active kidney stones (850077196) Resolved HTN - Hypertension (4806746220): Resolved. Gout (408905906): Resolved. Family History: Kidney stone Mother Hypertension Mother Diabetes mellitus type 2 Father Procedure history: Cysto, left ureteral stent removal, left RGP, left ureteronephroscopy with Holmium laser ablation, multiple basket extraction of stone,fragments, replacement of JJ ureteral stent under fluoroscopic guidance. on 09/08/2015 at 60 Years. Cystoscopy (50996616) on 08/04/2015 at 60 Years. Comments: 08/04/2015 17:56 EDT - Maurice ALMAGUER, Marilyn Left Stent Insertion Abdominal hernia (837502667). Physical Examination Vital Signs 07/10/2023 12:01 EDT [...] BUN 27 mg/dL HI Creatinine 1.6 mg/dL GA 07/06/2023 12:34 EDT Blood Culture Charcoal NEG [...] or not further antibiotics are needed.. Normal [facility] Comment on above: Result Comment: Elec tronically Signed By: Sadia Shannon, Jean Marie Mcgovern.joelle\Date and Time Signed: 07/10/23 14:43 EDT Discharge Instructionson Discharge Instructions [id number]#1.00 TIFF Normal [facility] Discharge Note-Nursingon Discharge Note-Nursing PRO GIVENS JEAN MARIE :1955 Visit Date:07/06/2023 Inpatient Discharge Instructions Your Care Team Admitting Physician - Dwight Eddy DO Consulting Physician - Jean Marie Mccullough M.D DPM, Jhonatan Brandon MD, [facility]. Reason for Your Visit pt reports he [...] Diagnostic Test Results Wound culture Pharmacy Information [facility] Previously Scheduled Follow-Up Appointments Sunday 3:30 PM EDT With: JAMESON SUH, Taras Duncan Where: [facility] Inpatient Clinical Summaryon 07-10-2023 Inpatient Clinical Summary [address] [address] Clinical Summary Person Information: Name: JEAN MARIE MAST SR Age: 68 Years : 1955 Sex: Male PCP: Michelle Figueroa MD Marital Status: Race: White Ethnicity: Non- or Language: Zimbabwean Visit Id: Visit Reason: Cellulitis - Leg; Lower leg pain-swelling; SENT BY DR MARISCAL, LEG PAIN Speciality: Acuity: Enc Type: Inpatient Med Service: Medical Arrival: 07/06/2023 12:00:42 Discharge: Dispo Type: Admitted as IP to this Hosp Address: [address] [place] [address] Provider Notes: Diagnosis: 1:Cellulitis of right leg; [...] Aleksandr SUH, Dixie Cartagena; Jhonatan Mariscal DPM; Sadia Shannon, Jean Marie Dumont Referring Physician: Follow up: With: Address: When: Dixie Brandon [address] [place] [address] Business (1) Within 1 to 2 weeks Comments: Call for followup appointment With: Address: When: Jean Marie Mccullough [address] [place] [address] Business (1) 07/23/2023 1:45 PM With: Address: When: Michelle Figueroa [address] [place] [address] Business (1) 07/17/2023 10:00 AM With: Address: When: Jhonatan MULLER - [facility], [facility], [address], [place] [address] 07/11/2023 8:20 AM Type Location Start [facility] Office Visit [facility] 09/12/2023 3:30 PM 09/12/2023 3:45 PM Confirmed Patient Education Information: Cellulitis, Adult, Gtom-ga-Ozwe Normal [facility] Inpatient Patient Summaryon 07-10-2023 Inpatient Patient Summary [address] [address] Patient Discharge Instructions PERSON INFORMATION [...] Follow up: With: Address: When: Dixie Brandon [address] [place] [address] Business (1) Within 1 to 2 weeks Comments: Call for followup appointment With: Address: When: Jean Marie Mccullough [address] [place] [address] Business (1) 07/23/2023 1:45 PM With: Address: When: Michelle Figueroa [address] [place] [address] Business (1) 07/17/2023 10:00 AM With: Address: When: Jhonatan MULLER - [facility], [facility], [facility] [address], [place] [address] 07/11/2023 8:20 AM In the event that this physician does not participate in your insurance network, please consult with your insurance company to find a nearby participating provider. Type Location Start [facility] Office Visit [facility] [place] 09/12/2023 3:30 PM 09/12/2023 3:45 PM Confirmed Comment: PRO Acevedo SR, MICHAEL, have received the attached patient education materials/instructions and have verbalized understanding: Patient Signature Date Clinican/Nurse Signature _ Date HERE ARE THE MEDICATION CHANGES THAT OCCURRED DURING YOUR HOSPITAL STAY New Medications [facility], [address] [place], [place] [id number], [phone] linezolid (Zyvox 600 mg Tab) 1 Tablets [...] Capsules By Mouth every day. Pharmacy Information: [facility] Comment: PATIENT EDUCATION INFORMATION Instructions: Cellulitis, Adult Cellulitis is a skin infection. The infected area is often warm, red, swollen, and sore. It occurs most often in the arms and lower legs. It is very import (more content not included)... Normal [facility] Interdisciplinary Note - Justin e Manageron 07-10-2023 Interdisciplinary Note - Erco Machine Operator Pt is asleep in bed, no family present. Previously rounded with Dr. Waller and aware of plan for ID to [...] on Linzolid cost checked at pt preferred [facility], with his insurance was over $400, but with good rx will be down to $51.50 and they have in stock currently. Pt updated on cost and pt is ok with cost. Nursing updated on DC plan [facility] Comment on above: Result Comment: Elec tronically Signed By: Chasidy ALMAGUER, Alaina\.joelle\Date and Time Signed: 07/10/23 15:15 EDT Monitor Recordon 07-10-2023 Monitor Record [id number]#1.00 TIFF [facility] Monitor Record [id number]#1.00 TIFF [facility] Progress Note-Physicianon Progress Note-Physician Assessment/Plan 68-year-old [...] with IV Invanz and vancomycin. Seen by cork compounder and had a bedside incision and drainage of blister/bullae. Status post wound dressing. MRI does not show any deep tissue abscess of bone involvement/osteomyelit is. Infectious disease consult pending. Vascular surgery consult?can be done as outpatient. Ordered: [facility] Hospital Care/Day Moderate 35 Minutes [id number] 2. Wound of right ankle (S91.001A: Unspecified open wound, right ankle, initial encounter) Continue wound dressings. Wound cultures so far not isolating any organisms. Ordered: [facility] Hospital Care/Day Moderate 35 Minutes 73383 Wound Culture 3. Acute kidney injury (N17.9: Acute kidney failure, unspecified) Acute kidney injury?secondary to ATN from above infection, diuretics and lisinopril. Improved. Lisinopril and hydrochlorothiazide suspended. Treated with IV fluid. Ordered: [facility] Hospital Care/Day Moderate 35 Minutes 93070 4. Obese (E66.9: Obesity, unspecified) Recommend therapeutic lifestyle modification changes. Ordered: [facility] Hospital Care/Day Moderate 35 Minutes [id number] 5. HTN (hypertension) (I10: Essential (primary) hypertension) [...] made to ensure accuracy. However inadvertent computerized health practice manager errors may be present. Elvira Waller. Hospitalist. Orders: ertapenem + Sodium Chloride 0.9% [...] stones Histori (more content not included)... Normal [facility] Comment on above: Result Comment: Elec tronically Signed By: AYANNA SUH, Elvira\.br\Date and Time Signed: 07/10/23 12:09 EDT BMPon 07-09-2023 Anion gap [Moles/Vol] 8 mmol/L Normal 6-16 [facility] Comment on above: Performed By: #### 2 [id number] #### [facility] [address] [place] [address] Calcium [Mass/Vol] 8.2 mg/dL Low 8.9-11.1 [facility] Comment on above: Performed By: #### 2 [id number] #### [facility] [address] [place] [address] Chloride [Moles/Vol] 108 mmol/L Normal 101-111 [facility] Comment on above: Performed By: #### 2 [id number] #### [facility] [address] [place] [address] CO2 [Moles/Vol] 27 mmol/L Normal 21-31 [facility] Comment on above: Performed By: #### 2 [id number] #### [facility] [address] [place] [address] Creatinine [Mass/Vol] 1.4 mg/dL High 0.5-1.3 [facility] Comment on above: Performed By: #### 2 [id number] #### [facility] [address] [facility] [place] [address] Glucose [Mass/Vol] 109 mg/dL Normal 55-199 [facility] Comment on above: Performed By: #### 2 [id number] #### [facility] [address] [place] [address] Potassium [Moles/Vol] 3.8 mmol/L Normal 3.5-5.3 [facility] Comment on above: Performed By: #### 2 045956 #### [facility] [address] [place] [address] Sodium [Moles/Vol] 139 mmol/L Normal 135-145 [facility] Comment on above: Performed By: #### 2 078500 #### [facility] [address] [place] [address] Urea nitrogen [Mass/Vol] 16 mg/dL Normal 5-21 [facility] Comment on above: Performed By: #### 2 [id number] #### [facility] [address] [place] [address] Urea nitrogen/Creatinine [Mass ratio] 11 No Units Normal 10-20 [facility] Comment on above: Performed By: #### 2 [id number] #### [facility] [address] [place] [address] CHEMISTRYOrdered By: SYSTEM SYSTEM on 07-09-2023 Vanco [...] Justin e Manageron 07-09-2023 Interdisciplinary Note - Erco Machine Operator Pt is out of room for [...] information reviewed. CRM following for needs. Normal [facility] Comment on above: Result Comment: Elec tronically Signed By: Chasidy ALMAGUER, Alaina\.joelle\Date and Time Signed: 07/09/23 11:37 EDT MRI [...] Vueway Contrast amount in ml's: 10 Normal [facility] MRI Tibia/Fibula w/ + w/o Co [...] osteomyelitis, or marrow replacing process. Joint: Large lgfbh-eg-scjw imaging of the knee with degenerative changes with subchondral cystic change, probable tearing of the medial lateral meniscus, probable tearing of ACL, but overall not well evaluated on the large hhldd-sx-xhqv. Muscle: Mild diffuse fatty infiltration of the [...] tendons grossly intact within limits of large kkpiu-ch-iogg. Small amount of increased fluid at the [...] Vueway Contrast amount in ml's: 10 Normal [facility] Message from Medicareon 06-20 Message from Medicare [id number]#1.00T IFF Normal [facility] Message from Medicare [id number]#1.00T IFF Normal [facility] Monitor Recordon 07-09-2023 Monitor Record [id number]#1.00 TIFF Normal [facility] Monitor Record [id number]#1.00 TIFF Normal [facility] Monitor Record [id number]#1.00 TIFF Normal [facility] Monitor Record [id number]#1.00 TIFF Normal [facility] No Panel InformationOrdered By: Maty Felix on 07-09-2023 GS No organisms seen. [facility] Wound Culture Scant growth of Staphylococcus species coagulase negative [facility] Progress Note - Pharmacyon 0 07-09-2023 [...] questions, please contact the pharmacy at extension [phone]. Age: 68 Years Allergies: aspirin Weight: Last [...] Vanco Pk: 27 mcg/mL (07/08/23 17:11:00) Normal [facility] Progress Note-Physicianon Progress Note-Physician Patient: JEAN MARIE MAST SR Age: 68 years Sex: Male : 1955 Associated Diagnoses: None Author: Yanira CLANCY, Jhonatan Richardson Subjective Patient seen at bedside today MRI [...] Problems Asymptomatic microscopic hematuria / SNOMED CT 8747943709 / Confirmed BPH with urinary obstruction / SNOMED CT 5954656816 / Confirmed kidney stones / SNOMED CT 292432270 / Confirmed, Active Problems (3) Asymptomatic microscopic [...] Right tibia (more content not included)... Normal [facility] Comment on above: Result Comment: Elec [...] Infuse over 30 minute(s), 07/09/23 12:12:00 EDT Sbsq Hospital Care/Day Moderate 35 Minutes 71442 2. Wound of right ankle (S91.001A: Unspecified open wound, right ankle, initial encounter) Present during this admission. Wound culture. MRI of the foot pending. Ordered: ertapenem + Sodium Chloride 0.9% intravenous solution 50 mL, 500 mg = 0.5 EA, IV Piggyback, Daily, Routine, Start date 07/10/23 9:00:00 EDT, 100 mL/hr, Infuse over 30 minute(s), 07/09/23 12:12:00 EDT [facility] Hospital Care/Day Moderate 35 Minutes 21211 Wound Culture 3. Acute kidney injury (N17.9: Acute kidney failure, unspecified) Acute kidney injury?secondary to ATN from above infection, diuretic and lisinopril. Improved. Avoid nephrotoxic drugs. Lisinopril and hydrochlorothiazide suspended. Treated with IV fluid. Ordered: [facility] Hospital Care/Day Moderate 35 Minutes 67152 4. Obese (E66.9: Obesity, unspecified) Recommend therapeutic lifestyle modification changes. Ordered: [facility] Hospital Care/Day Moderate 35 Minutes 52240 5. HTN (hypertension) (I10: Essential (primary) hypertension) [...] made to ensure accuracy. However inadvertent computerized health practice manager errors may be present. Elvira Waller. Hospitalist. Other obstructive and reflux uropathy (N13.8: [...] High (05 (more content not included)... Normal [facility] Comment on above: Result Comment: Elec tronically Signed By: AYANNA SUH, Shravanfo\.br\Date and Time Signed: 07/09/23 12:19 EDT RAD - MRI Screening Formon 0 07-09-2023 RAD - MRI Screening Form [id number]#1.0 0TIFF Normal [facility] Vanco Troughon 07-09-2023 Vanco Tr 9 microgram/mL Low 10-20 [facility] Comment on above: Performed By: #### 2 [id number] ####[facility] [address] [place] [address] eGFRon 07-09-2023 eGFR 55 mL/min/1.73 m2 Low >=59 [facility] Comment on above: Order Comment: Order added by Discern Expert. Performed By: #### 1 [id number] #### [facility] [address] [place] [address] BMPon 07-08-2023 Anion gap [Moles/Vol] 10 mmol/L Normal 6-16 [facility] Comment on above: Performed By: #### 2 [id number] #### [facility] [address] [place] [address] Calcium [Mass/Vol] 8.2 mg/dL Low 8.9-11.1 [facility] Comment on above: Performed By: #### 2 941773 #### [facility] [address] [place] [address] Chloride [Moles/Vol] 107 mmol/L Normal 101-111 [facility] Comment on above: Performed By: #### 2 749875 #### [facility] [address] [place] [address] CO2 [Moles/Vol] 25 mmol/L Normal 21-31 [facility] Comment on above: Performed By: #### 2 091378 #### [facility] [address] [place] [address] Creatinine [Mass/Vol] 1.4 mg/dL High 0.5-1.3 [facility] Comment on above: Performed By: #### 2 308456 #### [facility] [address] [place] [address] Glucose [Mass/Vol] 110 mg/dL Normal 55-199 [facility] Comment on above: Performed By: #### 2 613625 #### [facility] [address] [place] [address] Potassium [Moles/Vol] 3.9 mmol/L Normal 3.5-5.3 [facility] Comment on above: Performed By: #### 2 268246 #### [facility] [address] [place] [address] Sodium [Moles/Vol] 138 mmol/L Normal 135-145 [facility] Comment on above: Performed By: #### 2 315694 #### [facility] [address] [place] [address] Urea nitrogen [Mass/Vol] 21 mg/dL Normal 5-21 [facility] Comment on above: Performed By: #### 2 065046 #### [facility] [address] [place] [address] Urea nitrogen/Creatinine [Mass ratio] 15 No Units Normal 10-20 [facility] Comment on above: Performed By: #### 2 755828 #### [facility] [address] [place] [address] CHEMISTRYOrdered By: SYSTEM SYSTEM on 07-08-2023 Vanco [...] Noteon 07-08-19 Consultation Note Patient: JEAN MARIE MATS SR Age: 68 years Sex: Male : [...] Problems Asymptomatic microscopic hematuria / SNOMED CT 1528239185 / Confirmed BPH with urinary obstruction / SNOMED CT 7804795980 / Confirmed kidney stones / SNOMED CT 600396979 / Confirmed, Active Problems (3) Asymptomatic microscopic hematuria BPH with urinary obstruction kidney stones Objective Measurements from flowsheet : Measurements 07/08/2023 6:00 EDT Weight Measured 108.6 kg Vital Signs (last 24 hrs) Last Charted Temp Axillary 36.7 DegC (JULY 07 07:25) Heart Rate Monitored 81 bpm (JULY 07:26) SBP H 146 mmHg (JULY 07:25) DBP 79 mmHg (JULY 07:25) Weight 108.6 kg (JULY 07 06:00) General: [...] his tib-fib (more content not included)... Normal [facility] Comment on above: Result Comment: Elec tronically Signed By: Jhonatan Mariscal DPM.joelle\Date and Time Signed: 07/08/23 09:52 EDT Monitor Recordon 07-08-2023 Monitor Record [id number]#1.00 TIFF Normal [facility] Progress Note-Physicianon Progress Note-Physician Subjective Day [...] control as needed Last for a.m. Ordered: [facility] Hospital Care/Day Moderate 35 Minutes 97013 2. Acute kidney injury (N17.9: Acute kidney failure, unspecified) Serum creatinine down to 1.4 FENa from yesterday was 1.8; may be intrinsic and he was taking HCTZ, lisinopril and Mobic in the outpatient setting which all have been held Ordered: Sbsq Hospital Care/Day Moderate 35 Minutes 31169 Orders: Basic Metabolic Panel eGFR Extra Lav [...] mg= 1 (more content not included)... Normal [facility] Comment on above: Result Comment: Elec tronically Signed By: Dwight Eddy DO\.br\Date and Time Signed: 07/08/23 12:44 EDT Vanco Peakon 07-08-2023 Vanco Pk 27 microgram/mL Normal 20-40 [facility] Comment on above: Order Comment: pleas e draw one hour after vancomycin infusion is complete Performed By: #### 2 [id number] #### [facility] [address] [place] [address] XR Foot 3+ Views Righton XR Foot [...] mGy = . DAP = . Normal [facility] XR Tib/Fib Right 2 Viewon XR [...] mGy = . DAP = . Normal [facility] eGFRon 07-08-2023 eGFR 55 mL/min/1.73 m2 Low >=59 [facility] Comment on above: Order Comment: Order added by Discern Expert. Performed By: #### 1 [id number] #### [facility] [address] [place] [address] BMPon 07-07-2023 Anion gap [Moles/Vol] 10 mmol/L Normal 6-16 [facility] Comment on above: Performed By: #### 2 932116 #### [facility] [address] [place] [address] Calcium [Mass/Vol] 8.2 mg/dL Low 8.9-11.1 [facility] Comment on above: Performed By: #### 2 343961 #### [facility] [address] [place] [address] Chloride [Moles/Vol] 106 mmol/L Normal 101-111 [facility] Comment on above: Performed By: #### 2 806002 #### [facility] [address] [place] [address] CO2 [Moles/Vol] 25 mmol/L Normal 21-31 [facility] Comment on above: Performed By: #### 2 550640 #### [facility] [address] [place] [address] Creatinine [Mass/Vol] 1.6 mg/dL High 0.5-1.3 [facility] Comment on above: Performed By: #### 2 563950 #### [facility] [address] [place] [address] Glucose [Mass/Vol] 103 mg/dL Normal 55-199 [facility] Comment on above: Performed By: #### 2 122815 #### [facility] [address] [place] [address] Potassium [Moles/Vol] 3.7 mmol/L Normal 3.5-5.3 [facility] Comment on above: Performed By: #### 2 190857 #### [facility] [address] [place] [address] Sodium [Moles/Vol] 137 mmol/L Normal 135-145 [facility] Comment on above: Performed By: #### 2 894389 #### [facility] [address] [place] [address] Urea nitrogen [Mass/Vol] 27 mg/dL High 5-21 [facility] Comment on above: Performed By: #### 2 152352 #### [facility] [address] [place] [address] Urea nitrogen/Creatinine [Mass ratio] 17 No Units Normal 10-20 [facility] Comment on above: Performed By: #### 2 175462 #### [facility] [address] [place] [address] CBC w/ Auto Diffon 4 Basophils/100 WBC (Bld) 0.5 % Normal 0.0-2.0 [facility] Comment on above: Performed By: #### 2 [id number] #### [facility] [address] [place] [address] Basophils/Leukocytes Auto (Bld) [Pure # fraction] 0.0 E9/L Normal 0.0-0.2 [facility] Comment on above: Performed By: #### 2 112417 #### [facility] [address] [place] [address] Eosinophils (Bld) [#/Vol] 0.2 E9/L Normal 0.0-0.5 [facility] Comment on above: Performed By: #### 2 762553 #### [facility] [address] [place] [address] Eosinophils/100 WBC (Bld) 3.0 % Normal 0.0-8.0 [facility] Comment on above: Performed By: #### 2 210883 #### [facility] [address] [place] [address] Erythrocyte distribution width (RBC) [Ratio] 13.6 % Normal 10.9-14.2 [facility] Comment on above: Performed By: #### 2 657438 #### [facility] [address] [place] [address] Hematocrit (Bld) [Volume fraction] 40.6 % Normal 37.7-49.0 [facility] Comment on above: Performed By: #### 2 010591 #### [facility] [address] [place] [address] Hemoglobin (Bld) [Mass/Vol] 13.8 g/dL Normal 13.5-17.5 [facility] Comment on above: Performed By: #### 2 548571 #### [facility] [address] [place] [address] Lymphocytes (Bld) [#/Vol] 1.7 E9/L Normal 1.0-4.0 [facility] Comment on above: Performed By: #### 2 655649 #### [facility] [address] [place] [address] Lymphocytes/100 WBC (Bld) 20.4 % Normal 14.0-50.0 [facility] Comment on above: Performed By: #### 2 020992 #### [facility] [address] [place] [address] MCH (RBC) [Entitic mass] 32.2 pg Normal 27.0-34.0 [facility] Comment on above: Performed By: #### 2 994274 #### [facility] [address] [place] [address] MCHC (RBC) [Mass/Vol] 34.1 g/dL Normal 31.4-36.0 [facility] Comment on above: Performed By: #### 2 747830 #### [facility] [address] [place] [address] MCV (RBC) [Entitic vol] 94.5 fL Normal 80.0-100.0 [facility] Comment on above: Performed By: #### 2 889987 #### [facility] [address] [place] [address] Monocytes (Bld) [#/Vol] 0.5 E9/L Normal 0.2-1.0 [facility] Comment on above: Performed By: #### 2 065570 #### [facility] [address] [place] [address] Neutrophils (Bld) [#/Vol] 5.7 E9/L Normal 2.0-7.5 [facility] Comment on above: Performed By: #### 2 649911 #### [facility] [address] [place] [address] Neutrophils/100 WBC (Bld) 69.7 % Normal 36.0-75.0 [facility] Comment on above: Performed By: #### 2 294662 #### [facility] [address] [place] [address] Platelet mean volume (Bld) [Entitic vol] 8.6 fL Normal 6.4-10.8 [facility] Comment on above: Performed By: #### 2 444706 #### [facility] [address] [place] [address] Platelets (Bld) [#/Vol] 205.0 E9/L Normal 150.0-500.0 [facility] Comment on above: Performed By: #### 2 381515 #### [facility] [address] [place] [address] RBC (Bld) [#/Vol] 4.3 E12/L Normal 4.3-5.9 [facility] Comment on above: Performed By: #### 2 707748 #### [facility] [address] [place] [address] WBC corrected for nucl RBC Auto (Bld) [#/Vol] 8.1 E9/L Normal 4.0-11.0 [facility] Comment on above: Performed By: #### 2 070766 #### [facility] [address] [place] [address] CHEMISTRYOrdered By: SYSTEM SYSTEM on 07-07-2023 Anion [...] Monitor Recordon 07-07-2023 Monitor Record [id number]#1.00 TIFF Normal [facility] Monitor Record [id number]#1.00 TIFF Normal [facility] Monitor Record [id number]#1.00 TIFF Normal [facility] Monitor Record [id number]#1.00 TIFF Normal [facility] Monitor Record [id number]#1.00 TIFF Normal [facility] Monitor Record [id number]#1.00 TIFF Normal [facility] Progress Note-Physicianon Progress Note-Physician Subjective Detail [...] 05:35:00) Lymph Auto: 20.4 % (07/07/23 05:35:00) [place] Auto: 6.4 % (07/07/23 05:35:00) Eos Auto: 3 % (07/07/23 05:35:00) Basophil Auto: 0.5 % (07/07/23 05:35:00) Neutro Absolute: 5.7 E9/L (07/07/23 05:35:00) Lymph Absolute: 1.7 E9/L (07/07/23 05:35:00) [place] Absolute: 0.5 E9/L (07/07/23 05:35:00) Eos Absolute: [...] Ordered: Initial Hospital Care/Day Moderate 55 Minutes 50514 2. Acute kidney injury (N17.9: Acute kidney failure, unspecified) FENa 1.8 which may be intrinsic; patient was taking HCTZ and lisinopril which had been held and he was also taking Mobic Creatinine down to 1.6 Continue to trend Ordered: Initial Hospital Care/Day Moderate 55 Minutes 39680 Orders: acetaminophen, 650 mg = 2 tab(s), Tab, Oral, q6hr PRN Pain, Routine, Start date 07/06/23 16:49:00 EDT, 07/06/23 16:49:00 EDT Al hydroxide/Mg hydroxide/simethicone, 30 mL, Susp-Or (more content not included)... Normal [facility] Comment on above: Result Comment: Elec tronically Signed By: Dwight Eddy DObr\Date and Time Signed: 07/07/23 14:55 EDT eGFRon 07-07-2023 eGFR 47 mL/min/1.73 m2 Low >=59 [facility] Comment on above: Order Comment: Order added by Discern Expert. Performed By: #### 1 [id number] #### [facility] [address] [place] [address] BMPon 07-06-2023 Anion gap [Moles/Vol] 12 mmol/L Normal 6-16 [facility] Comment on above: Performed By: #### 2 995010 #### [facility] [address] [place] [address] Calcium [Mass/Vol] 8.6 mg/dL Low 8.9-11.1 [facility] Comment on above: Performed By: #### 2 184010 #### [facility] [address] [place] [address] Chloride [Moles/Vol] 104 mmol/L Normal 101-111 [facility] Comment on above: Performed By: #### 2 781214 #### [facility] [address] [place] [address] CO2 [Moles/Vol] 25 mmol/L Normal 21-31 [facility] Comment on above: Performed By: #### 2 983693 #### [facility] [address] [place] [address] Creatinine [Mass/Vol] 1.8 mg/dL High 0.5-1.3 [facility] Comment on above: Performed By: #### 2 855247 #### [facility] [address] [place] [address] Glucose [Mass/Vol] 111 mg/dL Normal 55-199 [facility] Comment on above: Performed By: #### 2 995706 #### [facility] [address] [place] [address] Potassium [Moles/Vol] 3.5 mmol/L Normal 3.5-5.3 [facility] Comment on above: Performed By: #### 2 270574 #### [facility] [address] [place] [address] Sodium [Moles/Vol] 137 mmol/L Normal 135-145 [facility] Comment on above: Performed By: #### 2 338605 #### [facility] [address] [place] [address] Urea nitrogen [Mass/Vol] 29 mg/dL High 5-21 [facility] Comment on above: Performed By: #### 2 877164 #### [facility] [address] [place] [address] Urea nitrogen/Creatinine [Mass ratio] 16 No Units Normal 10-20 [facility] Comment on above: Performed By: #### 2 653205 #### [facility] [address] [place] [address] CBC w/ Auto Diffon 4 Basophils/100 WBC (Bld) 0.4 % Normal 0.0-2.0 [facility] Comment on above: Performed By: #### 2 530309 #### [facility] [address] [place] [address] Basophils/Leukocytes Auto (Bld) [Pure # fraction] 0.0 E9/L Normal 0.0-0.2 [facility] Comment on above: Performed By: #### 2 319439 #### [facility] [address] [place] [address] Eosinophils (Bld) [#/Vol] 0.2 E9/L Normal 0.0-0.5 [facility] Comment on above: Performed By: #### 2 880944 #### [facility] [address] [place] [address] Eosinophils/100 WBC (Bld) 2.8 % Normal 0.0-8.0 [facility] Comment on above: Performed By: #### 2 297519 #### [facility] [address] [place] [address] Erythrocyte distribution width (RBC) [Ratio] 13.9 % Normal 10.9-14.2 [facility] Comment on above: Performed By: #### 2 671847 #### [facility] [address] [place] [address] Hematocrit (Bld) [Volume fraction] 46.2 % Normal 37.7-49.0 [facility] Comment on above: Performed By: #### 2 049089 #### [facility] [address] [place] [address] Hemoglobin (Bld) [Mass/Vol] 15.6 g/dL Normal 13.5-17.5 [facility] Comment on above: Performed By: #### 2 319012 #### [facility] [address] [place] [address] Lymphocytes (Bld) [#/Vol] 1.3 E9/L Normal 1.0-4.0 [facility] Comment on above: Performed By: #### 2 476160 #### [facility] [address] [place] [address] Lymphocytes/100 WBC (Bld) 18.3 % Normal 14.0-50.0 [facility] Comment on above: Performed By: #### 2 577471 #### [facility] [address] [place] [address] MCH (RBC) [Entitic mass] 32.2 pg Normal 27.0-34.0 [facility] Comment on above: Performed By: #### 2 120309 #### [facility] [address] [place] [address] MCHC (RBC) [Mass/Vol] 33.7 g/dL Normal 31.4-36.0 [facility] Comment on above: Performed By: #### 2 296417 #### [facility] [address] [place] [address] MCV (RBC) [Entitic vol] 95.3 fL Normal 80.0-100.0 [facility] Comment on above: Performed By: #### 2 573737 #### [facility] [address] [place] [address] Monocytes (Bld) [#/Vol] 0.6 E9/L Normal 0.2-1.0 [facility] Comment on above: Performed By: #### 2 807607 #### [facility] [address] [place] [address] Neutrophils (Bld) [#/Vol] 4.9 E9/L Normal 2.0-7.5 [facility] Comment on above: Performed By: #### 2 663742 #### [facility] [address] [place] [address] Neutrophils/100 WBC (Bld) 70.2 % Normal 36.0-75.0 [facility] Comment on above: Performed By: #### 2 744672 #### [facility] [address] [place] [address] Platelet 189.0 E9/L Normal 150.0-500.0 [facility] [facility] above: Performed By: #### 2 [id number] #### [facility] [address] [place] [address] Platelet mean volume (Bld) [Entitic vol] 8.5 fL Normal 6.4-10.8 [facility] Comment on above: Performed By: #### 2 [id number] #### [facility] [address] [place] [address] RBC (Bld) [#/Vol] 4.8 E12/L Normal 4.3-5.9 [facility] Comment on above: Performed By: #### 2 [id number] #### [facility] [address] [place] [address] WBC corrected for nucl RBC Auto (Bld) [#/Vol] 7.0 E9/L Normal 4.0-11.0 [facility] Comment on above: Performed By: #### 2 [id number] #### [facility] [address] [place] [address] CHEMISTRYOrdered By: SYSTEM SYSTEM on 07-06-2023 Sodium [Moles/Vol] 127 mmol/L Invalid Interpretation Code Remisol Chem U Creatinine 93.5 mg/dL Invalid Interpretation Code Remisol Chem Lactic Acid Lvl 1.0 mmol/L Normal 0.5 - 2.2 mmol/L Remisol Chem Consent for Treatmenton 06-19 Consent for Treatment [id number] IFF Normal [facility] ED Clinical Summaryon 2023 ED Clinical Summary (Inserted Image. Denisha ble to display) [address] [address] ED Clinical Summary Person Information Name: JEAN MARIE MAST SR/[facility] Age: 68 Years : 1955 Sex: Male Language: Zimbabwean PCP: Michelle Figueroa MD Marital Status: Visit Id: Visit Reason: Cellulitis - Leg; Lower leg pain-swelling; SENT BY DR MARISCAL, LEG PAIN Speciality: Acuity: 3 Enc Type: Inpatient Med Service: Emergency Arrival: 07/06/2023 12:00:42 Discharge: LOS: 000 03:16 Checkin: 07/06/2023 12:00:42 Checkout: 07/06/2023 15:16:48 Dispo Type: Admitted as IP to this [facility] EVENTS: Event Name Event Status Request [...] 14:38:53 Patient Care Request 07/06/2023 14:38:53 ADDRESS: [address] [place] [address] [address] [facility] [address] [facility] DOC NOTES: MEDICAL INFORMATION: Prescriptions [...] up: DIAGNOSIS: 1:Cellulitis of right leg Normal [facility] ED Note-Physicianon 07-06-19 ED Note-Physician Basic [...] made to ensure accuracy, however, inadvertently computerized health practice manager mistakes may be present. Appropriate healthcare [...] mg= 1 (more content not included)... Normal [facility] Comment on above: Result Comment: Elec tronically Signed By: Franki Elias PA-C\.br\Date and Time Signed: 07/06/23 14:52 EDT\.br\Electronically Co-Signed By: Arnel Modi DO\.br\Date and Time Co-Signed: 07/06/23 15:54 EDT ED Patient Education Noteon 07-06-2023 ED Patient Education Note Normal [facility] ED Patient Summaryon 024 ED Patient Summary (Inserted Image. Denisha ble to display) [place] [address] Patient Discharge Instructions Person Information Name: JEAN MARIE MAST SR Age: 68 Years Arrival Date: 07/06/2023 12:00:42 Discharge Diagnosis: 1:Cellulitis of right leg Primary Care Physician: Michelle Figueroa MD Provider Information Primary Provider: Arnel Modi DO [employer] Customer Service Representative:Franki Elias PA-C The exam and treatment you received in the Emergency Department were for an urgent problem and are not intended as complete care. It is important that you follow up with a doctor, nurse practitioner, or physician?s assistant golf professional for ongoing care. If your symptoms become [...] opioids can be used to help relieve enrubhdz-jv-daovcu pain and are often prescribed following a [...] from the Food and Drug Administration (www.fda.gov/Drugs/Reso henryModeYou). ? Visit www.cdc.gov/drugoverdos e to learn about the risks of opioids abuse and overdose. ? If you believe you may be struggling with addiction, tell your health rn transitional care and ask for guidance or call [facility]pl[facility] at [phone]. h Source: US Department of Health and Human Services/Center for Disease Control & Prevention [facility] Medications Given: Medicati (more content not included)... Normal [facility] HEMATOLOGYOrdered By: SYSTEM SYSTEM on 07-06-2023 [...] Lactic Acid Lvl 1.0 mmol/L Normal 0.5-2.2 [facility] Comment on above: Performed By: #### 2 [id number] #### [facility] [address] [place] [address] No Panel InformationOrdered By: [facility] MICROBIOLOGY on 07-06-2023 Blood Culture Charcoal No growth at 4 da ys. Final to follow at 7 days. [facility] Blood Culture Charcoal No growth at 4 da ys. Final to follow at 7 days. [facility] Progress Note - Pharmacyon 0 07-06-2023 [...] questions please contact the pharmacy at extension [phone]. Age: 68 Years Allergies: aspirin Weight: Last [...] 4.8 E12/L (07/06/23 12:34:00) HGB: 15.6 gm/dL (07/06/23:34:00) Hct: 46.2 % (07/06/23 12:34:00) MCV: 95.3 fL (07/06/23 12:34:00) MCH: 32.2 pg (07/06/23:34:00) MCHC: 33.7 gm/dL (07/06/23:34:00) RDW: 13.9 % (07/06/23:34:00) Platelet: 189 E9/L (07/06/23 12:34:00) MPV: 8.5 fL (07/06/23:34:00) Neutro Auto: 70.2 % (07/06/23 12:34:00) Lymph Auto: 18.3 % (07/06/23 12:34:00) [place] Auto: 8.3 % (07/06/23:34:00) Eos Auto: 2.8 % (07/06/23:34:00) Basophil Auto: 0.4 % (07/06/23 12:34:00) Neutro Absolute: 4.9 E9/L (07/06/23 12:34:00) Lymph Absolute: 1.3 E9/L (07/06/23 12:34:00) [place] Absolute: 0.6 E9/L (07/06/23 12:34:00) Eos Absolute: [...] Acid Lvl: 1 mmol/L (07/06/23 12:34:00) Normal [facility] U Creatinineon 07-06-2023 U Creatinine 93.5 mg/dL Invalid Interpretation Code [facility] Comment on above: Performed By: #### 2 [id number] #### [facility] [address] [place] [address] U Sodiumon 07-06-2023 Sodium [Moles/Vol] 127 mmol/L Invalid Interpretation Code [facility] Comment on above: Performed By: #### 2 [id number] #### [facility] [address] [place] [address] URINALYSISOrdered By: SYSTEM SYSTEM on 07-06-2023 Bilirubin [...] that meet specific criteria set forth by [facility]. Glucose Ql (U) Negative Normal [...] Desc Random Urine (07/06/23 8:20 PM) Normal FT UA Auto SS Work Phone: Urinalysis with Microon 06-19 Bilirubin Ql (U) Negative Normal Negative [facility] Comment on above: Performed By: #### 4 [id number] #### [facility] [address] [place] [address] Clarity (U) Clear Normal Clear [facility] Comment on above: Performed By: #### 4 [id number] #### [facility] [address] [place] [address] Color (U) Light-Yellow Normal Yellow [facility] Comment on above: Result Comment: Micr oscopic readings are only performed on those samples that meet specific criteria set forth by [facility]. Performed By: #### 4 [id number] #### [facility] [address] [place] [address] Glucose Ql (U) Negative Normal Negative [facility] Comment on above: Performed By: #### 4 [id number] #### [facility] [address] [place] [address] Hemoglobin Auto test strip (U) [Mass/Vol] Negative Normal Negative [facility] Comment on above: Performed By: #### 4 [id number] #### [facility] [address] [place] [address] Ketones Auto test strip Ql (U) Negative Normal Negative [facility] Comment on above: Performed By: #### 4 [id number] #### [facility] [address] [place] [address] Leukocyte esterase Auto test strip Ql (U) Negative Normal Negative [facility] Comment on above: Performed By: #### 4 [id number] #### [facility] [address] [place] [address] Nitrite Auto test strip Ql (U) Negative Normal Negative [facility] Comment on above: Performed By: #### 4 [id number] #### [facility] [address] [place] [address] pH (U) 5.5 [pH] Invalid Interpretation Code 5.0-9.0 [facility] Comment on above: Performed By: #### 4 [id number] #### [facility] [address] [place] [address] Protein Ql (U) Trace Abnormal Negative [facility] Comment on above: Performed By: #### 4 [id number] #### [facility] [address] [place] [address] Specific gravity (U) [Rel density] 1.020 Invalid Interpretation Code 1.005-1.030 [facility] Comment on above: Performed By: #### 4 [id number] #### [facility] [address] [place] [address] Urobilinogen (U) [Mass/Vol] Negative Normal Negative [facility] Comment on above: Performed By: #### 4 [id number] #### [facility] [address] [place] [address] Type of Urine collection method Random Urine Normal [facility] Comment on above: Performed By: #### 4 [id number] #### [facility] [address] [place] [address] eGFRon 07-06-2023 eGFR 41 mL/min/1.73 m2 Low >=59 [facility] Comment on above: Order Comment: Order added by Discern Expert. Performed By: #### 1 [id number] #### [facility] [address] [place] [address] US LE Venous Duplex Righton 07-04-2023 US [...] [place] MD Transcribed by: LALY Technologist: SHERI Duncan [facility] Consent for Treatmenton 06-19 Consent for Treatment [id number] IFF Normal [facility] Physician Orderon 07-03-2023 Physician Order [id number] FF Normal [facility] CHEMISTRYOrdered By: SYSTEM SYSTEM on 11-15-2021 Prostate specific Ag [Mass/Vol] 0.8 ng/mL Normal 0.1 - 3.5 ng/mL [facility] Remisol Vital Signs Date Time Vital Sign Value Performing Clinician Facility 08-15-2023 14:53-0400 Body height 185.42 cm [facility] 08-15-2023 14:53-0400 Body mass index (BMI) [Ratio] 31.4 kg/m2 [facility] 08-15-2023 14:53-0400 Body temperature 97.5 [degF] [facility] 08-15-2023 14:53-0400 Body weight 108 kg [facility] 08-15-2023 14:53-0400 Diastolic blood pressure 87 mm[Hg] [facility] 08-15-2023 14:53-0400 Heart rate 75 /min [facility] 08-15-2023 14:53-0400 Systolic blood pressure 135 mm[Hg] [facility] 07-25-2023 13:54-0400 Body height 185.42 cm [facility] 07-25-2023 13:54-0400 Body mass index (BMI) [Ratio] 31.6 kg/m2 [facility] 07-25-2023 13:54-0400 Body temperature 98.6 [degF] [facility] 07-25-2023 13:54-0400 Body weight 108.86 kg [facility] 07-25-2023 13:54-0400 Diastolic blood pressure 79 mm[Hg] [facility] 07-25-2023 13:54-0400 Heart rate 52 /min [facility] 07-25-2023 13:54-0400 Systolic blood pressure 142 mm[Hg] [facility] 07-10-2023 13:15-0400 Hourly Rounding Dwight Surjit [facility] 07-10-2023 12:29-0400 Hourly Rounding Dwight Surjit [facility] 07-10-2023 12:29-0400 Promise to Return Dwight Surjit [facility] 07-10-2023 12:01-0400 Heart rate 79 /min Dwight Surjit [facility] 07-10-2023 12:01-0400 SaO2% (BldA) [Mass fraction] 95 % Dwight Surjit [facility] 07-10-2023 12:00-0400 Body temperature 97.34 [degF] Dwight Surjit [facility] 07-10-2023 12:00-0400 Diastolic blood pressure 86 mm[Hg] Dwight Surjit [facility] 07-10-2023 12:00-0400 Mean blood pressure 105 mm[Hg] Dwight Surjit [facility] 07-10-2023 12:00-0400 Systolic blood pressure 142 mm[Hg] Dwight Surjit [facility] 07-10-2023 11:11-0400 Hourly Rounding Dwight Surjit [facility] 07-10-2023 11:11-0400 Promise to Return Dwight Surjit [facility] 07-10-2023 10:08-0400 Promise to Return Dwight Surjit [facility] 07-10-2023 07:51-0400 Heart rate 74 /min Dwight Surjit [facility] 07-10-2023 07:51-0400 SaO2% (BldA) [Mass fraction] 94 % Dwight Orellanaer [facility] 07-10-2023 07:50-0400 Diastolic blood pressure 81 mm[Hg] Dwight Orellanaer [facility] 07-10-2023 07:50-0400 Mean blood pressure 106 mm[Hg] Dwight Orellanaer [facility] 07-10-2023 07:50-0400 Systolic blood pressure 154 mm[Hg] Dwight Boxcker [facility] 07-10-2023 07:50-0400 Body temperature 98.24 [degF] Dwight Boxcker [facility] 07-10-2023 00:10-0400 Blood Pressure Location Dwight Orellanaer [facility] 07-10-2023 00:10-0400 Body temperature 98.24 [degF] Dwight Surjti [facility] 07-10-2023 00:10-0400 Diastolic blood pressure 69 mm[Hg] Dwight Orellanaer [facility] 07-10-2023 00:10-0400 Heart rate 83 /min Dwight Orellanaer [facility] 07-10-2023 00:10-0400 Mean blood pressure 92 mm[Hg] Dwight Boxcker [facility] 07-10-2023 00:10-0400 Respiratory rate 18 /min Dwight Boxcker [facility] 07-10-2023 00:10-0400 SaO2% (BldA) [Mass fraction] 93 % Dwight Surjit [facility] 07-10-2023 00:10-0400 Systolic blood pressure 139 mm[Hg] Dwight Orellanaer [facility] 07-09-2023 19:25-0400 Heart rate 80 /min Dwight Surjit [facility] 07-09-2023 19:21-0400 Respiratory rate 16 /min Dwight Boxcker [facility] 07-09-2023 19:21-0400 Body temperature 98.06 [degF] Dwight Orellanaer [facility] 07-09-2023 19:21-0400 Mean blood pressure 91 mm[Hg] Dwight Boxcker [facility] 07-09-2023 05:51-0400 Blood Pressure Location Dwight Orellanaer [facility] 07-09-2023 05:51-0400 Body temperature 98.24 [degF] Dwight Orellanaer [facility] 07-09-2023 05:51-0400 Heart rate 73 /min Dwight Orellanaer [facility] 07-09-2023 05:51-0400 Mean blood pressure 96 mm[Hg] Dwight Boxcker [facility] 07-09-2023 05:51-0400 Respiratory rate 18 /min Dwight Boxcker [facility] 07-09-2023 00:10-0400 Blood Pressure Location Dwight Boxcker [facility] 07-09-2023 00:10-0400 Body temperature 98.42 [degF] Dwight Boxcker [facility] 07-09-2023 00:10-0400 Heart rate 69 /min Dwight Boxcker [facility] 07-09-2023 00:10-0400 Mean blood pressure 91 mm[Hg] Dwight Eddy [facility] 04-02-2023 13:09-0500 Body height 185.4 cm Gerald Padilla MD Work Phone: [facility] 04-02-2023 13:09-0500 Body mass index (BMI) [Ratio] 31.14 kg/m2 Gerald Padilla MD Work Phone: [facility] 04-02-2023 13:09-0500 Body weight 107.05 kg Gerald Padilla MD Work Phone: [facility] 04-02-2023 13:09-0500 Diastolic blood pressure 77 mm[Hg] Gerald Padilla MD Work Phone: [facility] 04-02-2023 13:09-0500 Systolic blood pressure 137 mm[Hg] Gerald Padilla MD Work Phone: [facility] 03-21-2023 14:55-0500 Body height 185.4 cm Cynthia Pocos DO Work Phone: [facility] 03-21-2023 14:55-0500 Body mass index (BMI) [Ratio] 31.14 kg/m2 Cynthia Pocos DO Work Phone: [facility] 03-21-2023 14:55-0500 Body weight 107.05 kg Cynthia Pocos DO Work Phone: [facility] 11-21-2021 08:55-0400 Blood Pressure Location Taras BARBA [facility] 11-21-2021 08:55-0400 Diastolic blood pressure 111 mm[Hg] Taras BARBA [facility] 11-21-2021 08:55-0400 Heart rate 73 /min Taras BARBA [facility] 11-21-2021 08:55-0400 Respiratory rate 16 /min Taras BARBA [facility] 11-21-2021 08:55-0400 Systolic blood pressure 148 mm[Hg] Taras BARBA [facility] Encounters Encounter Date Encounter Type Care Provider Facility Start: 09-12-2023 ambulatory Traas BARBA Facility :[facility] Start: 09-12-2023 End: 09-12-2023 Patient encounter procedure Taras BARBA [facility] Start: 09-10-2023 End: 09-10-2023 ambulatory JHONATAN BAUTISTACE Not Available Start: 09-04-2023 End: 09-04-2023 ambulatory Taras BARBA Facility:[facility] Start: 09-04-2023 End: 09-04-2023 Patient encounter procedure Taras BARBA [facility] Start: 08-31-2023 End: 08-31-2023 ambulatory MICHELLE FIGUEROA Not Available Start: 08-27-2023 End: 08-27-2023 ambulatory JHONATAN Richardson DOLCE Not Available Start: 08-16-2023 End: 08-16-2023 ambulatory MICHELLE FIGUEROA Not Available Start: 08-16-2023 End: 08-16-2023 ambulatory DO Jose Manuel Figueroa Facility:[facility] Start: 08-15-2023 End: 08-15-2023 ambulatory [facility] Work Phone: Start: 08-15-2023 End: 08-15-2023 Patient encounter procedure [facility] Work Phone: Start: 08-06-2023 End: 08-07-2023 Pre-admission assessment Dixie rBandon [facility] Start: 07-27-2023 End: 07-27-2023 ambulatory JHONATAN D DOLCE Not Available Start: 07-25-2023 End: 07-25-2023 ambulatory [facility] Work Phone: Start: 07-25-2023 End: 07-25-2023 Patient encounter procedure [facility] Work Phone: Start: 07-18-2023 End: 07-18-2023 ambulatory JHONATAN D DOLCE Not Available Start: 07-17-2023 End: 07-17-2023 ambulatory MICHELLE Barlow FIGUEROA Not Available Start: 07-11-2023 End: 07-11-2023 ambulatory JHONATAN D DOLCE Not Available Start: 07-06-2023 End: 07-10-2023 Evaluation and management of inpatient Elvira WALLER Facility:[facility] Start: 07-06-2023 Emergency department patient visit Arnel Modi Facility:[facility] Start: 07-06-2023 End: 07-10-2023 Evaluation and management of inpatient Dwight BarlowArti Eddy [facility] Start: 07-04-2023 End: 07-04-2023 ambulatory JHONATAN D DOLCE Not Available Start: 07-03-2023 End: 07-03-2023 ambulatory Jhonatan D Dolce Facility:[facility] Start: 07-03-2023 End: 07-03-2023 Patient encounter procedure Jhonatan D Dolce [facility] Start: 07-03-2023 End: 07-03-2023 ambulatory JHONATAN [...] Available Start: 05-15-2023 End: 05-15-2023 ambulatory LIZBETH GUNILA Not Available Start: 05-07-2023 End: 05-08-2023 ambulatory CHRIS GONZALEZHN Not Available Start: 05-07-2023 End: 05-07-2023 ambulatory JHONATAN D DOLCE Not Available Start: 05-02-2023 End: 05-02-2023 ambulatory CYNTHIA HENDERSON Not Available Start: 05-01-2023 End: 05-01-2023 ambulatory CHRIS MOREIRA Not Available Start: 04-24-2023 End: 04-24-2023 ambulatory LIZBETH JONESKASIAK Not Available Start: 04-23-2023 End: 04-23-2023 ambulatory JHONATAN D DOLCE Not Available Start: 04-16-2023 End: 04-17-2023 ambulatory SHERIE HOUGH Not Available Start: 04-10-2023 End: 04-10-2023 ambulatory ENRIQUETA SOSA Not Available Start: 04-10-2023 End: 04-10-2023 ambulatory SHERIE HOUGH Not Available Start: 04-02-2023 End: 04-03-2023 ambulatory SHERIE HOUGH Not Available Start: 04-02-2023 Bamboo flowsheet Gerald martinez MD Work Phone: [facility] Start: 04-02-2023 Bamboo flowsheet Gerald martinez MD Work Phone: [facility] Start: 04-02-2023 End: 04-02-2023 Office outpatient new 30 minutes Gerald Padilla MD Work [facility]: [facility] Comment on above: Bilateral tinnitus ( Primary Dx); Sensorineural hearing loss (SNHL), bilateral Start: 04-02-2023 End: 04-02-2023 ambulatory GERALD PADILLA Not Available Start: 03-30-2023 Chart abstracting Gerald rodriguez MD Work Phone: [facility] Start: 03-26-2023 Chart abstracting Cynthia dumont DO Work Phone: [facility] Start: [...] Start: 03-13-2023 End: 03-13-2023 ambulatory MICHELLE Barlow [place] Not Available Start: 02-27-2023 End: 02-27-2023 ambulatory JHONATAN D DOLCE Not Available Start: 02-09-2023 End: 02-09-2023 ambulatory JHONATAN D DOLCE Not Available Start: 11-21-2021 End: 11-21-2021 Patient encounter procedure Taras BARBA [facility] Start: 11-15-2021 End: 11-15-2021 Patient encounter procedure Taras BARBA [facility] Procedures Date Procedure Procedure Detail Performing [...] Annual Wellness (AWV) Medicare Annual Wellness (AWV) [facility] Start: 04-23-2023 End: 04-23-2023 Patient encounter procedure 04/23/2023 3:45 PM EST Office Visit [facility] [address] [place] [id number] Cynthia Henderson DO [address] [place] [address] [facility] Start: 04-02-2023 End: 04-02-2023 ambulatory 04/02/2023 6:00 PM EST Evaluation [facility] [address] [place] [id number] Sherie Hough, PT [address] [place] [address] [facility] Start: 04-02-2023 End: 04-02-2023 Patient encounter procedure [facility] Comment on above: Arrived Start: 10-20-2022 Influenza vaccination Influenza Vacc ine (#1) [facility] Start: 02-23-2021 Pneumococcal Vaccine : 65+ Years (1 - PCV) Pneumococcal Vaccine: 65+ Years (1 - PCV) [facility] Start: 1955 Screening for malign ant neoplasm of colon [facility] XR Lumbar spine 2 or 3 Views XR lumbar spine 2 or 3 views Imaging Routine Hip pain, bilateral 03/21/2023 2:51 PM EST [facility] XR Pelvis AP and Hip - bilateral GE 2 Views XR hips bilateral 2 views Imaging Routine Hip pain, bilateral 03/21/2023 2:51 PM EST [facility] Work Phone: Immunizations Immunization Date Immunization Notes Care Provider Mercedes perez 07-11-2013 tetanus toxoid, redu troy diphtheria toxoid, and acellular pertussis vaccine, adsorbed Taras JAMESON [facility] Payers Date Payer Category Payer Unknown [employer] [id number] 2022-Present [address] [employer] [address] [place] [id number] 2021 Medicare [id number] 2021 Medicare MEDICARE MEDICAR E PART B [id number] 2021-[place] [address] [place] [address] Medicare [id number] 2021 Medicare [id number] 1955 Unknown [id number] 2.16.840.1.644663.3.579.2.727 1955 Unknown [id number] 2.16.840.1.845519.3.579.2.727 1955 Unknown [id number] 2.16.840.1.464122.3.579.2.727 1955 Unknown [id number] 2.16.840.1.369502.3.579.2.727 1955 Unknown [id number] 2.16.840.1.234599.3.579.2.727 1955 Unknown [id number] 2.16.840.1.527729.3.579.2.727 1955 Unknown [id number] 2.16.840.1.558202.3.579.2.125 9 1955 Unknown [id number] 2.16.840.1.660131.3.579.2.125 9 1955 Unknown [id number] 2.16.840.1.440732.3.579.2.125 9 1955 Unknown [id number] 2.16.840.1.571748.3.579.2.125 9 1955 Unknown [id number] 2.16.840.1.647164.3.579.2.125 9 1955 Unknown [id number] 2.16.840.1.740969.3.579.2.125 1955 Unknown [id number] 2.16.840.1.450581.3.579.2.125 1955 Unknown [id number] 2.16.840.1.784310.3.579.2.125 1955 Unknown [id number] 2.16.840.1.303845.3.579.2.125 1955 Unknown [id number] 2.16.840.1.025687.3.579.2.125 1956 Unknown [id number] 2.16.840.1.157662.3.579.2.125 1955 Unknown [id number] 2.16.840.1.784562.3.579.2.125 1956 Unknown [id number] 2.16.840.1.970323.3.579.2.125 1955 Unknown [id number] 2.16.840.1.786673.3.579.2.125 1955 Unknown [id number] 2.16.840.1.874951.3.579.2.125 1955 Unknown [id number] 2.16.840.1.312719.3.579.2.125 1955 Unknown [id number] 2.16.840.1.790028.3.579.2.125 1955 Unknown [id number] 2.16.840.1.484462.3.579.2.125 1956 Unknown [id number] 2.16.840.1.913433.3.579.2.125 1956 Unknown [id number] 2.16.840.1.600221.3.579.2.125 1956 Unknown [id number] 2.16.840.1.604096.3.579.2.125 9 1956 Unknown [id number] 2.16.840.1.832895.3.579.2.125 1956 Unknown [id number] 2.16.840.1.450971.3.579.2.125 1956 Unknown [id number] 2.16.840.1.487341.3.579.2.125 1956 Unknown [id number] 2.16.840.1.874607.3.579.2.125 1956 Unknown [id number] 2.16.840.1.862142.3.579.2.125 1956 Unknown [id number] 2.16.840.1.560082.3.579.2.125 1956 Unknown [id number] 2.16.840.1.561198.3.579.2.125 1956 Unknown [id number] 2.16.840.1.463485.3.579.2.125 1956 Unknown [id number] 2.16.840.1.465411.3.579.2.125 1956 Unknown [id number] 2.16.840.1.028933.3.579.2.125 1956 Unknown [id number] 2.16.840.1.497674.3.579.2.125 1956 Unknown [id number] 2.16.840.1.911090.3.579.2.125 1956 Unknown [id number] 2.16.840.1.590411.3.579.2.125 1956 Unknown [id number] 2.16.840.1.801129.3.579.2.125 1956 Unknown [id number] 2.16.840.1.702837.3.579.2.125 9 Unknown Regular Insurance [id number] Social History Date Type Detail Facility Start: 11-26-2019 End: 09-12-2023 Tobacco smoking status Ex-smoker (finding) [facility] Tobacco smoking status Never [facility] Start: 08-04-2022 End: 03-21-2023 Sex Assigned At Male [facility] End: 02-19-1989 History of tobacco use Current smoker [facility] End: 02-19-1989 History of tobacco use Cigarette Smoker [facility] Start: 08-12-2022 Tobacco use and exposure Former smokeless tobacco user [facility] End: 02-19-1989 History of tobacco use Chews Tobacco [facility] Start: 03-21-2023 End: 04-02-2023 Alcohol intake Lifetime non-drinker (finding) [facility] Start: 08-04-2022 End: 03-21-2023 History of Social function [facility] Start: 08-12-2022 Tobacco Comment Last smoked: > 10 years [facility] Start: 08-12-2022 Alcohol Comment Caffeine intak e: 3-4 cups per day soda/pop, energy drinks, tea [facility] Start: 1955 Sex Assigned At Not on file [facility] Start: 07-25-2023 Tobacco smoking status NHIS Never smoked tobacco (finding) [facility] Start: 1955 Sex Assigned At Male [facility] NEGATED: Highlighted rowStart: NINF History of tobacco use Passive smoker [facility] Functional Status Date Assessment Result Facility 07-06-2023 Functional Status N/A [facility] 07-06-2023 Functional Status [facility] 11-21-2021 Functional Status N/A [facility] Clinical Notes 11-21-2021 to 09-12-2023 Note Date & Type Note Facility 09-12-2023 Hospital Discharge instructions Patient Education 09/12/2023 15:55:39 Prostate Cancer Screening Prostate Cancer Screening Prostate cancer screening is testing that is done to check for the presence of prostate cancer in men. The prostate gland is a walnut-sized gland that is located below the bladder and in front of the rectum in males. The function of the prostate is to add fluid to semen during ejaculation. Prostate cancer is one of the most common types of cancer in men. Who should have prostate cancer screening? Screening recommendations vary based on age and other risk factors, as well as between the professional organizations who make the recommendations. In general, screening is recommended if: You are age 50 to 70 and have an average risk for prostate cancer. You should talk with your health care provider about your need for screening and how often screening should be done. Because most prostate cancers are slow growing and will not cause , screening in this age group is generally reserved for men who have a 10- to 15-year life expectancy. You are younger than age 50, and you have these risk factors: ?Having a father, brother, or uncle who has been diagnosed with prostate cancer. The risk is higher if your family member's cancer occurred at an early age or if you have multiple family members with prostate cancer at an early age. ?Being a male who is Black or is of [place] or sub-Saharan descent. In general, screening is not recommended if: You are younger than age 40. You are between the ages of 40 and 49 and you have no risk factors. You are 70 years of age or older. At this age, the risks that screening can cause are greater than the benefits that it may provide. If you are at high risk for prostate cancer, your health care provider may recommend that you have screenings more often or that you start screening at a younger age. How is screening for prostate cancer done? The recommended prostate cancer screening test is a blood test called the prostate-specific antigen (PSA) test. PSA is a protein that is made in the prostate. As you age, your prostate naturally produces more PSA. Abnormally high PSA levels may be caused by: Prostate cancer. An enlarged prostate that is not caused by cancer (benign prostatic hyperplasia, or BPH). This condition is very common in older men. A prostate gland infection (prostatitis) or urinary tract infection. Certain medicines such as male hormones (like testosterone) or other medicines that raise testosterone levels. A rectal exam may be done as part of prostate cancer screening to help provide information about the size of your prostate gland. When a rectal exam is performed, it should be done after the PSA level is drawn to avoid any effect on the results. Depending on the PSA results, you may need more tests, such as: A physical exam to check the size of your prostate gland, if not done as part of screening. Blood and imaging tests. A procedure to remove tissue samples from your prostate gland for testing (biopsy). This is the only way to know for certain if you have prostate cancer. What are the benefits of prostate cancer screening? Screening can help to identify cancer at an early stage, before symptoms start and when the cancer can be treated more easily. There is a small chance that screening may lower your risk of dying from prostate cancer. The chance is small because prostate cancer is a slow-growing cancer, and most men with prostate cancer from a different cause. What are the risks of prostate cancer screening? The main risk of prostate cancer screening is diagnosing and treating prostate cancer that would never have caused any symptoms or problems. This is called overdiagnosisand overtreatment. PSA screening cannot tell you if your PSA is high due to cancer or a different cause. A prostate biopsy is the only procedure to diagnose prostate cancer. Even the results of a biopsy may not tell you if your cancer needs to be treated. Slow-growing prostate cancer may not need any treatment other than monitoring, so diagnosing and treating it may cause unnecessary stress or other side effects. Questions to ask your health care provider When should I start prostate cancer screening? What is my risk for prostate cancer? How often do I need screening? What type of screening tests do I need? How do I get my test results? What do my results mean? Do I need treatment? Where to find more information [employer] [place] [employer]: www.cancer.org [employer]: www.auanet.org Contact a health care provider if: You have difficulty urinating. You have pain when you urinate or ejaculate. You have blood in your urine or semen. You have pain in your back or in the area of your prostate. Summary Prostate cancer is a common type of cancer in men. The prostate gland is located below the bladder and in front of the rectum. This gland adds fluid to semen during ejaculation. Prostate cancer screening may identify cancer at an early stage, when the cancer can be treated more easily and is less likely to have spread to other areas of the body. The prostate-specific antigen (PSA) test is the recommended screening test for prostate cancer, but it has associated risks. Discuss the risks and benefits of prostate cancer screening with your health care provider. If you are age 70 or older, the risks that screening can cause are greater than the benefits that it may provide. This information is not intended to replace advice given to you by your health care provider. Make sure you discuss any questions you have with your health care provider. Document Revised: 08/01/2021 Document Reviewed: 08/01/2021 [employer] Patient Education 2022 PlayPhone. Follow Up Care 11/21/2021 09:22:02 With:JAMESON SUH, Taras Duncan, URL Address: [address] [place], [place] [id number]- When: Unknown [facility] 07-13-2023 Note Microbiology PROCEDURE: Blood Culture Charcoal [R1] SOURCE: Blood BODY SITE: Hand R COLLECTED DATE/TIME: 07/06/2023 12:25 EDT RECEIVED DATE/TIME: 07/06/2023 13:00 EDT START DATE/TIME: 07/06/2023 13:00 EDT FREE TEXT SOURCE: Curt VARGAS, Franki Elias PA-C, Franki FINAL REPORTS Final Report [] Verified Date/Time: 07/13/2023 15:00 EDT No growth at 7 days. Performing Locations R1: This test was performed at: [facility], [address] [place] [address], [address] [place] [address], [facility] Comment on above: Performed By: #### 1 [id number] #### [facility] [address] [place] [address] 07-13-2023 Note Microbiology PROCEDURE: Blood Culture Charcoal [R1] SOURCE: Blood BODY SITE: Arm L COLLECTED DATE/TIME: 07/06/2023 12:34 EDT RECEIVED DATE/TIME: 07/06/2023 13:01 EDT START DATE/TIME: 07/06/2023 13:01 EDT FREE TEXT SOURCE: Curt VARGAS, Franki Yanez PA-C FINAL REPORTS Final Report [] Verified Date/Time: 07/13/2023 15:00 EDT No growth at 7 days. Performing Locations R1: This test was performed at: [facility], [address] [place] [address], [address] [place] [address], [address] [place] [address] Comment on above: Performed By: #### 1 [id number] #### [facility] [address] [place] [address] 07-11-2023 Note Microbiology PROCEDURE: Wound Culture [R1] SOURCE: Wound BODY SITE: Ankle R COLLECTED DATE/TIME: 07/09/2023 12:52 EDT RECEIVED DATE/TIME: 07/09/2023 13:01 EDT START DATE/TIME: 07/09/2023 13:01 EDT FREE TEXT SOURCE: AYANNA SUH, Elvira WALLER MD, Elvira FINAL REPORTS Final Report [] Verified Date/Time: 07/11/2023 12:05 EDT Scant growth of Staphylococcus species coagulase negative STAINS Gram Stain Report [] Verified Date/Time: 07/09/2023 14:15 EDT No organisms seen. Performing Locations R1: This test was performed at: [facility], [address] [place] [address], [address] [place] [address], [address] [place] [address] Comment on above: Performed By: #### [id number] #### [facility] [address] [place] [address] 07-10-2023 Note Admission and Discha rge Information Admit Date/Time:07/06/2023 14:36 Admitting Physician - Dwight Eddy DO Consulting Physician - Jean Marie Mccullough M.D, DPM, Jhonatan Brandon MD, Dixie F. Admitting [...] (08/04/2015), Abdominal hernia. 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 He was subsequently admitted to [facility] with acute cellulitis of the right leg secondary to infected right ankle wound and suspected erysipelas. He was also admitted with Acute kidney injury secondary to ATN from infection, meloxicam, hydrochlorothiazide and lisinopril.. He was treated with IV Invanz, IV vancomycin, IV fluid, as needed pain medications. He was seen in consultation by the infectious disease specialist as well as the cork compounder. Large Sheetfed Press Operator did a bedside incision and [...] Patient to follow-up with infectious disease specialist, cork compounder as well as his primary care physician accordingly. He will also follow-up with the vascular surgeon. New medication: Zyvox 600 mg twice daily x 2 weeks. Medications discontinued: Hydrochlorothiazide Meloxicam Services Consulted Consult to Infectious Disease Physician - Ordered -- 07/09/23 17:27:00 EDT, Cellulitis right leg, Consult and Co-manage Consult to Large Sheetfed Press Operator - Ordered -- 07/06/23 16:50:00 [...] Marie Mccullough 07/23/2023 (more content not included)... [facility] Comment on above: Result Comment: Elec tronically Signed By: AYANNA SUH, Shravanfo\.br\Date and Time Signed: 07/10/23 15:51 EDT 07-10-2023 Hospital Discharge instructions Patient Education 07/10/2023 15:22:59 Cellulitis, Adult, Qgur-qb-Uhyf Cellulitis, Adult Cellulitis is a skin infection. [...] Follow these instructions at home: Medicines Take watl-xlp-ljqzdri and prescription medicines only as told by [...] provider. Document Revised: 11/17/2021 Document Reviewed: 11/17/2021 [employer] Patient Education 2022 PlayPhone. Follow Up Care 07/06/2023 12:01:51 With:Dixie Brandon Address: [address] [place] [id number] Business (1) When:1 to 2 weeks Comments:Call for followup appointment With:Jean Marie Mccullough Address: [address] [place] [place] [address]- Business (1) When:07/23/2023 13:45:00 With:Michelle Figueroa Address: [address] [place] [address]- Business (1) When:07/17/2023 10:00:00 With:Jhonatan Mariscal Address: [facility] [place] [address] [place] [address]- When:07/11/2023 08:20:00 [facility] 07-10-2023 Evaluation + Plan note Extrac des from: Title:Discharge Note Author:AYANNA SUH, Mbanefo Dylan ate:07/10/23 Discharged to - Home independently Discharge [...] 01:45 PM EDT [address] [place] [address]- Business (1) Additional Instructions: Michelle Figueroa 07/17/2023 10:00 AM EDT [address] [place] [address]- Business (1) Additional Instructions: Jhonatan Mariscal 07/11/2023 08:20 AM EDT [facility] [address] [place] [address]- Additional Instructions: Dixie Brandon Within 1 to 2 weeks [address] [place] [address]- Business (1) Additional Instructions: Call for followup appointment Cellulitis, Adult, Isqc-qn-Mlgk Extracted from: Title:Infection Admission H&P * Author:Jean [...] are needed.. Extracted from: Title:APSO Note Author:AYANNA SHU, Mbanefo Date: 68-year-old male with histor y [...] with IV Invanz and vancomycin. Seen by cork compounder and had a bedside incision and drainage of blister/bullae. Status post wound dressing. MRI does not show any deep tissue abscess of bone involvement/osteomyelitis. Infectious disease consult pending. Vascular surgery consult can be done as outpatient. Ordered: [facility] Hospital Care/Day Moderate 35 Minutes 15474 2. Wound of right ankle (S91.001A: Unspecified open wound, right ankle, initial encounter) Continue wound dressings. Wound cultures so far not isolating any organisms. Ordered: [facility] Hospital Care/Day Moderate 35 Minutes 95170 Wound Culture 3. Acute kidney injury (N17.9: Acute kidney failure, unspecified) Acute kidney injury secondary to ATN from above infection, diuretics and lisinopril. Improved. Lisinopril and hydrochlorothiazide suspended. Treated with IV fluid. Ordered: [facility] Hospital Care/Day Moderate 35 Minutes [id number] 4. Obese (E66.9: Obesity, unspecified) Recommend therapeutic lifestyle modification changes. Ordered: [facility] Hospital Care/Day Moderate 35 Minutes [id number] 5. HTN (hypertension) (I10: Essential (primary) hypertension) [...] made to ensure accuracy. However inadvertent computerized health practice manager errors may be present. Elvira Waller. Hospitalist. Orders: ertapenem + Sodium Chloride 0.9% [...] infectious disease. Extracted from: Title:APSO Note Author:Elvira WALLER MD Date: 68-year-old male with histor y [...] Infuse over 30 minute(s), 07/09/23 12:12:00 EDT [facility] Hospital Care/Day Moderate 35 Minutes 09860 2. Wound of right ankle (S91.001A: Unspecified open wound, right ankle, initial encounter) Present during this admission. Wound culture. MRI of the foot pending. Ordered: ertapenem + Sodium Chloride 0.9% intravenous solution 50 mL, 500 mg = 0.5 EA, IV Piggyback, Daily, Routine, Start date 07/10/23 9:00:00 EDT, 100 mL/hr, Infuse over 30 minute(s), 07/09/23 12:12:00 EDT [facility] Hospital Care/Day Moderate 35 Minutes 79964 Wound Culture 3. Acute kidney injury (N17.9: Acute kidney failure, unspecified) Acute kidney injury secondary to ATN from above infection, diuretic and lisinopril. Improved. Avoid nephrotoxic drugs. Lisinopril and hydrochlorothiazide suspended. Treated with IV fluid. Ordered: [facility] Hospital Care/Day Moderate 35 Minutes 89929 4. Obese (E66.9: Obesity, unspecified) Recommend therapeutic lifestyle modification changes. Ordered: [facility] Hospital Care/Day Moderate 35 Minutes 13248 5. HTN (hypertension) (I10: Essential (primary) hypertension) [...] made to ensure accuracy. However inadvertent computerized health practice manager errors may be present. Elvira Waller. Hospitalist. Other obstructive and reflux uropathy (N13.8: [...] control as needed Last for a.m. Ordered: [facility] Hospital Care/Day Moderate 35 Minutes 77914 2. Acute kidney injury (N17.9: Acute kidney failure, unspecified) Serum creatinine down to 1.4 FENa from yesterday was 1.8; may be intrinsic and he was taking HCTZ, lisinopril and Mobic in the outpatient setting which all have been held Ordered: [facility] Hospital Care/Day Moderate 35 Minutes [id number] Orders: Basic Metabolic Panel eGFR Extra Lav [...] Ordered: Initial Hospital Care/Day Moderate 55 Minutes 69997 2. Acute kidney injury (N17.9: Acute kidney failure, unspecified) FENa 1.8 which may be intrinsic; patient was taking HCTZ and lisinopril which had been held and he was also taking Mobic Creatinine down to 1.6 Continue to trend Ordered: Initial Hospital Care/Day Moderate 55 Minutes [id number] Orders: acetaminophen, 650 mg = 2 tab(s), [...] Diet CBC w/ Auto Diff Consult to Large Sheetfed Press Operator Creatinine Urine eGFR Notify Provider [...] Diet CBC w/ Auto Diff Consult to Large Sheetfed Press Operator Creatinine Urine Notify Provider Vital [...] Date:09/12/2023 03:30:00 PM Scheduled Provider:Taras BARBA MD Location:[facility] Appointment Type:URO Office Visit Diagnostic Tests Pending * Vancomycin Level Trough 07/12/23 Future Scheduled Tests Laboratory* PSA Total 11/21/22 * Basic Metabolic Panel 07/17/23 Radiology* XR Abdomen 1 View 11/21/22 [facility]05-17-2024 NoteBasic Information Admit Date/Time:07/06/2023 14:38 Chief Complaint pt reports he saw Dolce in this last week for cellulitis of [...] initially his leg on Sunday felt like ksru-cda-oaqkvye. 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 Not interested [facility] to [facility] Tinnitus managementclinic documented in this encounterSaint [facility] [id number] History of Present illness Narrative* Carlotta Morrison [...] History: Procedure Laterality Date HERNIA REPAIR 2013 [place] REMOVAL OF KIDNEY STONE 2016 x3 FAMILY [...] Dr. Michelle Figueroa. documented in this encounterSaint [facility]Bar[facility] [id number] Hospital Discharge instructions Patient Education 11/21/2021 09:20:07 Kidney Stones, Kugr-nq-Ghxl Kidney Stones Kidney stones are rock-like masses [...] Follow these instructions at home: Medicines Take pveu-kcp-dsfbmrj and prescription medicines only as told by [...] 07/24/2008 Document Revised: 06/24/2019 Document Reviewed: 06/24/2019 [employer] Patient Education 2020 PlayPhone. Follow Up Care 01/24/2021 08:12:17 With:Taras BARBA MD, URL Address: [address] [place], [place] [id number]- When:Within 18 Month(s) Comments:w/psa and kub [facility] Evaluation + Plan note Future Appointments Appointment Date:11/21/2021 08:45:00 AM Scheduled Provider:Taras BARBA MD Location:[facility] Appointment Type:URO [facility] Future App[facility]ments Appointment Date:05/21/2023 08:00:00 AM Scheduled Provider:Taras BARBA MD Location:[facility] Appointment Type:URO Office Visit Future Scheduled Tests Laboratory* PSA Total 11/21/22 Radiology* XR Abdomen 1 View 11/21/22 [facility] Evaluation + Plan note Future Appointments Appointment Date:09/12/2023 03:30:00 PM Scheduled Provider:Taras BARBA MD Location:[facility] Appointment Type:URO Office Visit Future Scheduled Tests Laboratory* PSA Total 11/21/22 Radiology* XR Abdomen 1 View 11/21/22 [facility] Future Appointments Appointment Date:09/12/2023 03:30:00 PM Scheduled Provider:Taras BARBA MD Location:[facility] Appointment Type:URO Office Visit Future Scheduled Tests Laboratory* PSA Total 11/21/22 * Basic Metabolic Panel 07/17/23 Radiology* XR Abdomen 1 View 11/21/22 [facility] Future Appointments Appointment Date:09/12/2023 03:30:00 PM Scheduled Provider:Taras BARBA MD Location:[facility] Appointment Type:URO Office Visit Future Scheduled Tests Laboratory* Basic Metabolic Panel 07/17/23 [facility] Future Appointments Appointment Date:03/19/2024 03:30:00 PM Scheduled Provider:Taras BARBA MD Location:[facility] Appointment Type:URO Office Visit Future Scheduled Tests Laboratory* PSA Free & Total 01/20/24 * Basic Metabolic Panel 07/17/23 [facility] Evaluation note* Diagnosis Hip pain, bilateral- Primary Pain [...] this [facility] noteNo assessment information availableSam[facility] Work Phone: Evaluation note* Diagnosis Onset Date Resolution Status Erysipelas of right lower extremity acute [facility] Work Phone: Hospital course Narrative No data available for this section [facility] No data available for this section [facility] No data available for this section [facility] Reason for Referral Specialty Diagnoses / Procedures Referred By Damien t Referred To Contact Physical Therapy Diagnoses Hip pain, bilateral Left hip pain Lumbar spondylosis 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 Procedures MO OFFICE/OUTPATIENT NEW HIGH MDM 60 MINUTES Cynthia Henderson, DO [address] [place] [address] Cynthia Ramirez, PT [address] [place] [address] Referral ID Status Reason Start Date Expiration Date Visits Requested Visits Authorized [id number] Authorized Consult and Treat 03/21/2023 09/17/2023 10 10 Summary Purpose Family History No Family History Records Found Advance Directives Advance Directive Response Recorded Date/ Time Advance Directives No July 24 1:47pm Chief Complaint and Reason for Visit Chief Complaint post hosp [facility] Chief Complaint post hosp ft Patient here for a 3 week f/u Reason for Visit Erysipelas of right lower extremity Additional Source Comments Reason for Visit (unrecogniz ed section and content) Reason Comments Pain Specialty Diagnoses / Procedures Referred By Damien huerta Referred To Contact Orthopaedic Surgery Diagnoses Left hip pain Michelle Figueroa MD [address] [place] [address] Cynthia Henderson, DO [address] [place] [address] Referral ID Status Reason Start Date Expiration Date V isits Requested Visits Authorized [id number] Closed Specialty Services Required 03/13/2023 09/09/2023 1 [...] MD Address: Address: [address] [place] [address]- Corporate Services Manager Relationship Specialty Start Date End Date Michelle Figueroa MD [address] [place] [address] PCP - General Family Medicine 07/05/22 Michelle Figueroa MD [address] [place] [address] PCP - ACO Reach 07/13/22 (unrecognized sect [...] CREATED AUTHOR AUTHOR'S ORGANIZ ATION 07/11/2023 [facility] DATE CREATED AUTHOR AUTHOR'S ORGANIZ ATION 07/13/2023 [facility] DATE CREATED AUTHOR AUTHOR'S ORGANIZ ATION 07/15/2023 [facility] DATE CREATED AUTHOR AUTHOR'S ORGANIZ ATION 08/23/2023 [facility] DATE CREATED AUTHOR AUTHOR'S ORGANIZ ATION 09/07/2023 [facility] DATE CREATED AUTHOR AUTHOR'S ORGANIZ ATION 09/08/2023 [facility] DATE CREATED AUTHOR AUTHOR'S ORGANIZ ATION 09/11/2023 [facility] DATE CREATED AUTHOR AUTHOR'S ORGANIZ ATION 09/12/2023 [facility] DATE CREATED AUTHOR AUTHOR'S ORGANIZ ATION 09/12/2023 [facility] Goals (unrecognized section and content) Goals [...] BE BASED ON THE PRIMARY CLINICAL RECORDS. [facility] provides no warranty or guarantee of the accuracy or completeness of information in this document.
[2023-09-14 08:47] VITALS: BP 130/70; PULSE 65; O2SAT 97; BMI 29.3
--- NOTE | 2023-09-14 08:47 | VEINCLINIC_ITS ---
Vital Signs 09/14/23 08:47 Height 6 ft Weight 98 kg BMI 29.3 BP 130/70 BP Location Left Brachial BP Position Sitting BP Cuff Size Adult BP Source Manual Cuff Respiration 18 Pulse 65 Pulse Oximetry (%) 97 Comment The patient's blood pressure is elevated. Varicose Veins Patient in this day for EVLT of right leg perforating veins. Viktor Acevedo MD personally performed the services described in this documentation, as scribed by Michael Nixon RN in my presence and it is both accurate and complete. Michael Acevedo RN, am scribing for, and in the presence of, Dr. Viktor Hernandez and in the presence of the patient. thigh: bilateral, knee: bilateral, calf: bilateral and ankle: bilateral aching, burning, sharp and other (itching) 10 2 years Worsened in recent months: Yes standing and sitting analgesics, elevating extremities and compression stockings Reports erythema, firmness, heaviness, limb pain, edema, leg edema and other (cellulitis, ulcer) History of lower extremity trauma: No Superficial thrombophlebitis: Yes Family history of varicose veins: no Has patient had previous lower extremity venous surgery: No Patient has previously received the following treatment(s) for lower extremity varicose veins: Reports none Does patient have a history of : not applicable Does patient intend to have future pregnancies: not applicable Has patient had lower extremity venous scan with relux testing: Yes Support hose used: Yes Problems walking or doing physical activity: Yes How does it affect you: unable to stand for periods of time Do you walk much: Yes Do you stand much: Yes Medication compliance: good Large amounts of Vitamin K: No Review of Systems ROS Narrative Viktor Acevedo MD personally performed the services described in this documentation, as scribed by Michael Nixon RN in my presence and it is both accurate and complete. Michael Acevedo RN, am scribing for, and in the presence of, Dr. Viktor Hernandez and in the presence of the patient. Status of ROS 10 or more systems reviewed and unremark able except as noted in history and below Cardiovascular Reports: edema and swelling of feet/ankles Musculoskeletal Reports: extremity pain, extremity swelling, joint pain, joint swelling, muscle cramps and muscle weakness Integumentary/Breast Reports: itching, redness, skin pain, skin tenderness, skin swelling, sores (right distal medial), non-healing lesion (right distal medial) and changes in skin color (hemosiderin staining) Hematologic/Lymphatic Reports: easy bruising [facility] Medical History (Updated 08/20/23 @ 08:45 by Esther Sy) Phlebitis and thrombophlebitis of superficial vessels of right lower extremity ?I80.01 - Phlebitis and thrombophlebitis of superficial vessels of right lower extremity (ICD-10) Phlebitis and thrombophlebitis of superficial vessels of left lower extremity ?I80.02 - Phlebitis and thrombophlebitis of superficial vessels of left lower extremity (ICD-10) Varicose veins of bilateral lower extremities with pain ?I83.813 - Varicose veins of bilateral lower extremities with pain (ICD-10) Hernia ?K46.9 - Unspecified abdominal hernia without obstruction or gangrene (ICD-1 0) Abscess ?L02.91 - Cutaneous abscess, unspecified (ICD-10) Cellulitis ?L03.90 - Cellulitis, unspecified (ICD-10) Kidney stone ?N20.0 - Calculus of kidney (ICD-10) Hypertension ?I10 - Essential (primary) hypertension (ICD-10) Gout ?M10.9 - Gout, unspecified (ICD-10) Surgical History (Updated 08/20/23 @ 08:45 by Esther Sy) Status post ablation of incompetent vein using laser ?Z98.890 - Other specified postprocedural states (ICD-10) History of hernia repair ?Z98.890 - Other specified postprocedural states (ICD-10) ?Z87.19 - Personal history of other diseases of the digestive system (ICD-10) Family History (Updated 08/20/23 @ 08:48 by Esther Sy) Father Family history of cancer Family history of diabetes mellitus Mother Family history of hypertension Social History (Updated 08/20/23 @ 08:49 by Esther Sy) Within the past year, how often did you have a drink containing alcohol: monthly or less Smoking status: Former smoker What tobacco products do you use: cigarettes Packs per day: 0.5 Years smoked: 20 Smoking pack-years: 10.00 Smoking quit date/years: >15 years ago Non-prescribed substance use: denies use Meds Home Medications and Allergies Home Medications ?Medication ?Instructions ?Recorded ?Confirmed ?Type Lactobacillus acidophilus 10 100 mmu cells PO DAILY 08/20/23 08/20/23 History billion cell capsule (Probacap) allopurinol 200 mg tablet 200 mg PO DAILY 08/20/23 08/20/23 History amlodipine 5 mg tablet 5 mg PO DAILY 08/20/23 08/20/23 History linezolid 600 mg tablet 600 mg PO BID 08/20/23 08/20/23 History Allergies Allergy/AdvReac Type Severity Reaction Status Date / Time aspirin Allergy Unknown Verified 08/10/23 17:07 Exam Narrative Exam Narrative: Viktor Acevedo MD personally performed the services described in this documentation, as scribed by Michael Nixon RN in my presence and it is both accurate and complete. Michael Acevedo RN, am scribing for, and in the presence of, Dr. Viktor Hernandez and in the presence of the patient. Constitutional Documenting provider has reviewed patient's vital signs: yes Common normals: oriented x3 General appearance: cooperative Lymph Lymphatic: no lymphedema noted Chest Common normals: inspection of chest normal Respiratory Common normals: normal respiratory effort Cardio Rate: regular rate Rhythm: regular rhythm Peripheral pulses: posterior tibial pulses present and dorsalis pedis pulses present GI Common normals: Normal to inspection, nondistended, normoactive bowel sounds present Extremity General: calf tenderness, edema (Right lower extremity edema significantly improved) and other findings (Non-healing ulcer right distal medial lower leg) Right lower extremity: lower leg Right lower leg: inspection Left lower extremity: lower leg Left lower leg: inspection Neuro Common normals: oriented x3 Assessment and Plan Assessment and Plan (1) Phlebitis and thrombophlebitis of superficial vessels of right lower extremity: Plan f/u 09/28/2023 for physician's examination and right leg limited u/s Viktor Acevedo MD personally performed the services described in this documentation, as scribed by Michael Nixon RN in my presence and it is both accurate and complete. Michael Aceevdo RN, am scribing for, and in the presence of, Dr. iVktor Hernandez and in the presence of the patient. Procedures Procedure Instructions Procedures Plan of care: Risks and benefits of the procedure were discussed at length and informed written consent was obtained.? Time-out completed for verification of correct patient, procedure and site.? Staff present during time-out: Michael Nixon RN,? Viktor Hernandez MD, Marita Quinones RDMS,RVT. Time Out Time_904__ Patient prepped and procedure performed in usual sterile fashion. Risk of injury related to use of Diode laser and/or laser devices__CR___ ? Serial number of laser used :? [id number] Control panel self test performed, electrical cords in good condition, floor is dry, basin of water available, fire extinguisher in close proximity_CR__ Polycarbonate goggles available and Laser warning signs outside of doors___CR__ Eye protection provided to patient and staff in room_CR___ Use of laser retardant drapes and dull blackened instruments as directed__CR___ Use of nonflammable prep solutions and use of saline soaked sponges to protect tissues as indicated _CR___ Laser operated by __Dr. Hernandez Physician verbal confirmation laser locked in place__CR__ Laser start time (date and time) __09/14/2023@0910 Laser stop time(date and time) __09/14/2023@__0923 Jaquez _8.0___: right distal medial lower leg Joules: 183 Seconds: 23 Laser Site #2: right proximal medial lower leg Joules: 181 Seconds: 23 Pulse continuous ___CR_? Pulse intermittent ___ Evaluated patient for signs and symptoms of electrical injury __CR___ ? Skin clear at insertion site __CR___ Patient tolerated procedure well.? Left leg Coban dressing applied to access site.? Applied Left thigh high leg compression stocking. Will return on 09/28/2023 for Left leg limited venous ultrasound and exam.
--- NOTE | 2023-09-14 08:56 | P.DS_ITS ---
Discharge Plan Discharge Disposition: Home, Self-Care Outpatient Diagnostics: [facility] Facility EST LMTD (Routine) Timeframe: 2 Weeks Facility: [facility] - Location: Vein Center Ordered By: Ari Wilson [facility] EXT Venous RT LMTD (Routine) Timeframe: 2 Weeks Facility: [facility] - Location: Vein Center Ordered By: Ari Wilson Follow Up Appointments: 09/27/2023@0800 Plan of Treatment: f/u evaluation with physician Patient Instructions: Endovenous Ablation (DC) Print Language: Ivorian Discharge Date/Time: 09/14/23 08:57
== END 2023-09-14 08:57 | disposition home or self-care (01) ==
LOC: VC 08:25
PROVIDERS: PCP Radiology Diagnostic Radiology; Visit Provider Radiology Diagnostic Radiology
DX: I83.813 Varicose veins of bilateral lower extremities with pain (principal)
CPT/HCPCS: 36478

== ENCOUNTER 2023-09-28 07:50 | Outpatient (OUT) | payer MEDICARE, OTHER, SELFPAY ==
[2023-09-28 07:48] VITALS: BP 132/84; PULSE 74; O2SAT 97; BMI 29.3
--- NOTE | 2023-09-28 07:48 | VEINCLINIC_ITS ---
Vital Signs 09/28/23 07:48 Height 6 ft Weight 98 kg BMI 29.3 BP 132/84 BP Location Left Brachial BP Position Sitting BP Cuff Size Adult Respiration 18 Pulse 74 Pulse Oximetry (%) 97 Comment The patient's blood pressure is elevated. 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 Viktor Acevedo MD personally performed the services described in this documentation, as scribed by Esther Sy RDMS in my presence and it is both accurate and complete. Esther Acevedo RDMS, am scribing for, and in the presence of, Dr. Gerardo Hernandez and in the presence of the patient. thigh: bilateral, knee: bilateral, calf: bilateral and ankle: bilateral aching, burning, sharp and other (itching) 10 2 years Worsened in recent months: Yes standing and sitting analgesics, elevating extremities and compression stockings Reports erythema, firmness, heaviness, limb pain, edema, leg edema and other (cellulitis, ulcer) History of lower extremity trauma: No Superficial thrombophlebitis: Yes Family history of varicose veins: no Has patient had previous lower extremity venous surgery: No Patient has previously received the following treatment(s) for lower extremity varicose veins: Reports none Does patient have a history of : not applicable Does patient intend to have future pregnancies: not applicable Has patient had lower extremity venous scan with relux testing: Yes Support hose used: Yes Problems walking or doing physical activity: Yes How does it affect you: unable to stand for periods of time Do you walk much: Yes Do you stand much: Yes Medication compliance: good Large amounts of Vitamin K: No Review of Systems ROS Narrative Viktor Acevedo MD personally performed the services described in this documentation, as scribed by Esther Sy RDMS in my presence and it is both accurate and complete. Esther Acevedo RDMS, am scribing for, and in the presence of, Dr. Gerardo Hernandez and in the presence of the patient. Status of ROS 10 or more systems reviewed and unremark able except as noted in history and below Cardiovascular Reports: edema and swelling of feet/ankles Musculoskeletal Reports: extremity pain, extremity swelling, joint pain, joint swelling, muscle cramps and muscle weakness Integumentary/Breast Reports: itching, redness, skin pain, skin tenderness, skin swelling, sores (right distal medial), non-healing lesion (right distal medial) and changes in skin color (hemosiderin staining) Hematologic/Lymphatic Reports: easy bruising [facility] Medical History (Updated 08/20/23 @ 08:45 by Esther Sy) Phlebitis and thrombophlebitis of superficial vessels of right lower extremity ?I80.01 - Phlebitis and thrombophlebitis of superficial vessels of right lower extremity (ICD-10) Phlebitis and thrombophlebitis of superficial vessels of left lower extremity ?I80.02 - Phlebitis and thrombophlebitis of superficial vessels of left lower extremity (ICD-10) Varicose veins of bilateral lower extremities with pain ?I83.813 - Varicose veins of bilateral lower extremities with pain (ICD-10) Hernia ?K46.9 - Unspecified abdominal hernia without obstruction or gangrene (ICD- 10) Abscess ?L02.91 - Cutaneous abscess, unspecified (ICD-10) Cellulitis ?L03.90 - Cellulitis, unspecified (ICD-10) Kidney stone ?N20.0 - Calculus of kidney (ICD-10) Hypertension ?I10 - Essential (primary) hypertension (ICD-10) Gout ?M10.9 - Gout, unspecified (ICD-10) Surgical History (Updated 08/20/23 @ 08:45 by Esther Sy) Status post ablation of incompetent vein using laser ?Z98.890 - Other specified postprocedural states (ICD-10) History of hernia repair ?Z98.890 - Other specified postprocedural states (ICD-10) ?Z87.19 - Personal history of other diseases of the digestive system (ICD-10) Family History (Updated 08/20/23 @ 08:48 by Esther Sy) Father Family history of cancer Family history of diabetes mellitus Mother Family history of hypertension Social History (Updated 08/20/23 @ 08:49 by Esther Sy) Within the past year, how often did you have a drink containing alcohol: monthly or less Smoking status: Former smoker What tobacco products do you use: cigarettes Packs per day: 0.5 Years smoked: 20 Smoking pack-years: 10.00 Smoking quit date/years: >15 years ago Non-prescribed substance use: denies use Meds Home Medications and Allergies Home Medications ?Medication ?Instructions ?Recorded ?Confirmed ?Type Lactobacillus acidophilus 10 100 mmu cells PO DAILY 08/20/23 08/20/23 History billion cell capsule (Probacap) allopurinol 200 mg tablet 200 mg PO DAILY 08/20/23 08/20/23 History amlodipine 5 mg tablet 5 mg PO DAILY 08/20/23 08/20/23 History linezolid 600 mg tablet 600 mg PO BID 08/20/23 08/20/23 History Allergies Allergy/AdvReac Type Severity Reaction Status Date / Time aspirin Allergy Unknown Verified 08/10/23 17:07 Exam Narrative Exam Narrative: Patient is having tenderness and numbness to medial right lower leg. Swelling has improved. Viktor Acevedo MD personally performed the services described in this documentation, as scribed by Esther Sy RDMS in my presence and it is both accurate and complete. Esther Acevedo RDMS am scribing for, and in the presence of, Dr. Gerardo Hernandez and in the presence of the patient. Constitutional Documenting provider has reviewed patient's vital signs: yes Common normals: oriented x3 General appearance: cooperative Lymph Lymphatic: no lymphedema noted Chest Common normals: inspection of chest normal Respiratory Common normals: normal respiratory effort Cardio Rate: regular rate Rhythm: regular rhythm Peripheral pulses: posterior tibial pulses present and dorsalis pedis pulses present GI Common normals: Normal to inspection, nondistended, normoactive bowel sounds present Extremity General: calf tenderness (right lower leg tenderness and numbness), edema (Right lower extremity edema significantly improved) and other findings (Non-healing ulcer right distal medial lower leg) Right lower extremity: lower leg Right lower leg: inspection Left lower extremity: lower leg Left lower leg: inspection Neuro Common normals: oriented x3 Results Imaging Venous US: Radiologist's impression: Heat induced thrombus in two industrial equipment mechanic veins right medial lower leg. Viktor Acevedo MD personally performed the services described in this documentation, as scribed by Esther Sy RDMS in my presence and it is both accurate and complete. I, Esther Bollenbacher RDMS, am scribing for, and in the presence of, Dr. Gerardo Hernandez and in the presence of the patient. Assessment and Plan Assessment and Plan (1) Phlebitis and thrombophlebitis of superficial vessels of right lower extremity: Plan Patient will call when ready to continue with Varithena/microfoam of right leg. IViktor MD personally performed the services described in this documentation, as scribed by Esther Sy RDMS in my presence and it is both accurate and complete. IEsther RDMS, am scribing for, and in the presence of, Dr. Gerardo Hernandez and in the presence of the patient.
--- NOTE | 2023-09-28 07:51 | VEIN_ITS ---
Patient Name: JEAN MARIE MAST MR#: [id number] : 1955 Exam Date: 09/28/2023 Ordering Doctor: DR CYNTHIA BOWMAN M.D. RADIOLOGY REPORT PROCEDURE: [facility] EST LMTD VEIN CENTER - OFFICE VISIT FOLLOW UP COMPARISON: [facility]CL[facility], 09/04/2023. PROGRESS NOTES: The patient reports new onset area of numbness within medial lower right leg which began slightly greater than 1 week after the last procedure. There has been interval reduction in varicosities. The patient has followed our recommendations to walk 20-30 minutes once or twice per day since the procedure. Physical exam demonstrates decrease in varicosities of the leg. Persistent , but improving lower extremity edema within lower right leg. Review of the ultrasound performed the same day demonstrates occlusive thrombus extending throughout the treated vein(s), see separate report, consistent with a successful ablation. No thrombus extending into or beyond the saphenofemoral junction. The patient expressed a desire to proceed with treatment of remaining incompetent varicosities. The patient was informed that treatment was a process and would require 1-2 procedures/sessions. VEIN/[facility] EST LMTD IMPRESSION: 1. Successful ablation of lower right leg manager field veins. 2. Persistent varicose veins and lower extremity symptoms. PLAN: Microfoam chemical ablation of right leg incompetent branch saphenous varicosities. Nurse notes, history and physical were reviewed and confirmed, see attached forms. The nurse was present throughout the physical exam and consultation Dictated by: Viktor Hernandez M.D. on 09/28/2023 at 08:30 Approved by: Viktor Hernandez M.D. on 09/28/2023 at 08:33
--- NOTE | 2023-09-28 07:51 | VEIN_ITS ---
Patient Name: JEAN MARIE MAST MR#: [id number] : 1955 Exam Date: 09/28/2023 Ordering Doctor: DR CYNTHIA BOWMAN M.D. RADIOLOGY REPORT PROCEDURE: VC EXT VENOUS RT LMTD COMPARISON: [facility] EXT VENOUS RT LMTD, 09/04/2023. INDICATIONS: I80.01 - Phlebitis and thrombophlebitis of superficial veins right leg TECHNIQUE: Lower extremity holder scale and Duplex Doppler evaluation of the deep venous system from the inguinal ligament through the calf veins. FINDINGS: REGION: Right lower extremity. THROMBI: Negative for DVT. Heat induced thrombus in two perforators medial lower leg. COMPRESSIBILITY: Non-compressible segments corresponding to thrombus FLOW: Areas of no flow corresponding to thrombus OTHER: Multiple varicose veins remain. CONCLUSION: 1. Successful post ablation occlusion of right leg treated telephonic rn veins. Dictated by: Viktor Hernandez M.D. on 09/28/2023 at 08:29 Approved by: Viktor Hernandez M.D. on 09/28/2023 at 08:30
--- OUTSIDE RECORDS SUMMARY | 2023-09-28 07:53 | XMS_ITS | CCD ---
Author Organization [facility] Care Team Providers Care Psych Np Name Role Phone NONE, XXXX Primary Care Physician Unavailab Michelle Ace MD Primary Care Provider Michelle Figueroa MD Unavailable Michelle Figueroa Primary Care Physician [phone] DO Jose Manuel Figueroa Attending Unavailable Elvira [...] DOLCE, JHONATAN Richardson Attending Unavailable DOLCE, JHONATAN Rcihardson Attending Unavailable DOLCE, JHONATAN Richardson Attending Unavailable [...] (1 source) Aspirin; Translations: [aspirin] Drug Allergy [facility] Repository (10 sources) Aspirin; Translations: [aspirin] Drug Allergy Unknown (qualifier value) [facility] (7 sources) Aluminum aspirin Drug Allergy [...] Start: 11-26-2019 take 2 tablets by mo [facility] once daily allopurinol 100 mg Tab [...] day(s), # 28 tab(s), Refills(s) 0, Pharmacy: [facility], 185.4, cm, 07/06/23 12:13:00 EDT, [...] Start: 11-26-2019 take 2 tablets by mo [facility] once daily lisinopril [...] mGy = . DAP = . Normal [facility] CHEMISTRYOrdered By: SYSTEM SYSTEM on 09-04-2023 Albumin [...] for this result was chemiluminescence using [employer]'s Access Hybritech PSA reagent. Protein [Mass/Vol] 6.9 g/dL Normal 6.0 - 7.8 gm/dL Remisol Chem Sodium [Moles/Vol] 141 mmol/L Normal 135 - 145 mmol/L Remisol Chem Urea nitrogen [Mass/Vol] 23 mg/dL High 5 - 21 mg/dL Remisol Chem Urea nitrogen/Creatinine [Mass ratio] 15 mg/mg Normal 10 - 20 Remisol Chem CMPon 09-04-2023 Albumin [Mass/Vol] 4.0 g/dL Normal 3.3-5.0 [facility] Comment on above: Performed By: #### 2 [id number] #### [facility] [address] [place] [address] Albumin/Globulin (S) [Mass conc ratio] 1.4 Normal 1.1-2.2 [facility] Comment on above: Performed By: #### 2 996099 #### [facility] [address] [place] [address] ALP [Catalytic activity/Vol] 94 Int._Unit/L Normal 21-98 [facility] Comment on above: Performed By: #### 2 [id number] #### [facility] [address] [place] [address] ALT No additional P-5'-P [Catalytic activity/Vol] 16 Int._Unit/L Normal 6-46 [facility] Comment on above: Performed By: #### 2 179638 #### [facility] [address] [place] [address] Anion gap [Moles/Vol] 11 mmol/L Normal 6-16 [facility] Comment on above: Performed By: #### 2 [id number] #### [facility] [address] [place] [address] AST [Catalytic activity/Vol] 15 Int._Unit/L Normal 5-43 [facility] Comment on above: Performed By: #### 2 [id number] #### [facility] [address] [place] [address] Bilirubin [Mass/Vol] 0.4 mg/dL Normal 0.0-1.1 [facility] Comment on above: Performed By: #### 2 310585 #### [facility] [address] [place] [address] Calcium [Mass/Vol] 9.5 mg/dL Normal 8.9-11.1 [facility] Comment on above: Performed By: #### 2 314939 #### [facility] [address] [place] [address] Chloride [Moles/Vol] 110 mmol/L Normal 101-111 [facility] Comment on above: Performed By: #### 2 736224 #### [facility] [address] [place] [address] CO2 [Moles/Vol] 25 mmol/L Normal 21-31 [facility] Comment on above: Performed By: #### 2 354430 #### [facility] [address] [place] [address] Creatinine [Mass/Vol] 1.5 mg/dL High 0.5-1.3 [facility] Comment on above: Performed By: #### 2 412122 #### [facility] [address] [place] [address] Globulin (S) [Mass/Vol] 2.9 g/dL Normal 1.4-4.0 [facility] Comment on above: Performed By: #### 2 595901 #### [facility] [address] [place] [address] Glucose [Mass/Vol] 108 mg/dL Normal 55-199 [facility] Comment on above: Performed By: #### 2 227431 #### [facility] [address] [place] [address] Potassium [Moles/Vol] 4.6 mmol/L Normal 3.5-5.3 [facility] Comment on above: Performed By: #### 2 049398 #### [facility] [address] [place] [address] Protein [Mass/Vol] 6.9 g/dL Normal 6.0-7.8 [facility] Comment on above: Performed By: #### 2 675953 #### [facility] [address] [place] [address] Sodium [Moles/Vol] 141 mmol/L Normal 135-145 [facility] Comment on above: Performed By: #### 2 832706 #### [facility] [address] [place] [address] Urea nitrogen [Mass/Vol] 23 mg/dL High 5-21 [facility] Comment on above: Performed By: #### 2 619914 #### [facility] [address] [place] [address] Urea nitrogen/Creatinine [Mass ratio] 15 No Units Normal 10-20 [facility] Comment on above: Performed By: #### 2 780676 #### [facility] [address] [place] [address] PSA Totalon 09-04-2023 Prostate specific Ag [Mass/Vol] 1.3 ng/mL Normal 0.1-3.5 [facility] Comment on above: Result Comment: The concentration of PSA determined by different manufacturers can vary due to differences in assay methods and reagent specificity. Values obtained from different assay methods cannot be used interchangeably. The methodology used for this result was chemiluminescence using [employer] Access Hybritech PSA reagent. Performed By: #### 1 [id number] #### [facility] [address] [place] [address] eGFRon 09-04-2023 eGFR 51 mL/min/1.73 m2 Low >=59 [facility] Comment on above: Order Comment: Order added by Discern Expert. Performed By: #### 1 [id number] #### [facility] [address] [place] [address] Referrals Officeon Referrals Office [id number]#1.00 TIFF Normal [facility] General Message Officeon General Message Office --- --- --- --- - -- --- --- --- --- From: Lida DirectInbox To: JEAN MARIE MAST SR Sent: 07/11/23 02:31:06 AM EDT Subject: Discharge Summary Ready to View A summary regarding your recent visit is available in the Documents section of your health record. Normal [facility] Consultation Noteon 07-10-19 Consultation Note Patient: JEAN [...] Problems Asymptomatic microscopic hematuria / SNOMED CT 9308248823 / Confirmed BPH with urinary obstruction / SNOMED CT 1863262174 / Confirmed kidney stones / SNOMED CT 719315485 / Confirmed Histories Past Medical History: Active kidney stones (585890583) Resolved HTN - Hypertension (4217387511): Resolved. Gout (992815018): Resolved. Family History: Kidney stone Mother Hypertension Mother Diabetes mellitus type 2 Father Procedure history: Cysto, left ureteral stent removal, left RGP, left ureteronephroscopy with Holmium laser ablation, multiple basket extraction of stone,fragments, replacement of JJ ureteral stent under fluoroscopic guidance. on 09/08/2015 at 60 Years. Cystoscopy (36840768) on 08/04/2015 at 60 Years. Comments: 08/04/2015 17:56 EDT - Maurice ALMAGUER, Marilyn Left Stent Insertion Abdominal hernia (867805102). Physical Examination Vital Signs 07/10/2023 12:01 EDT [...] BUN 27 mg/dL HI Creatinine 1.6 mg/dL OR 07/06/2023 12:34 EDT Blood Culture Charcoal NEG [...] or not further antibiotics are needed.. Normal [facility] Comment on above: Result Comment: Elec tronically Signed By: Sadia Shannon, Jean Marie Mcgovern.joelle\Date and Time Signed: 07/10/23 14:43 EDT Discharge Instructionson Discharge Instructions [id number]#1.00 TIFF Normal [facility] Discharge Note-Nursingon Discharge Note-Nursing PRO GIVENS JEAN MARIE :1955 Visit Date:07/06/2023 Inpatient Discharge Instructions Your Care Team Admitting Physician - Dwight Eddy DO Consulting Physician - Jean Marie Mccullough M.D DPM, Jhonatan Brandon MD, [facility]. Reason for Your Visit pt reports [...] Diagnostic Test Results Wound culture Pharmacy Information [facility] Previously Scheduled Follow-Up Appointments Sunday 3:30 PM EDT With: JAMESON SUH, Taras Duncan Where: [facility] Inpatient Clinical Summaryon 07-10-2023 Inpatient Clinical Summary [address] [address] Clinical Summary Person Information: Name: JEAN MARIE MAST SR Age: 68 Years : 1955 Sex: Male PCP: Michelle Figueroa MD Marital Status: Race: White Ethnicity: Non- or Language: Pashto Visit Id: Visit Reason: Cellulitis - Leg; Lower leg pain-swelling; SENT BY DR MARISCAL, LEG PAIN Speciality: Acuity: Enc Type: Inpatient Med Service: Medical Arrival: 07/06/2023 12:00:42 Discharge: Dispo Type: Admitted as IP to this Hosp Address: [address] [place] [address] Provider Notes: Diagnosis: 1:Cellulitis of right leg; [...] up: With: Address: When: Dixie Brandon [address] [place] [address] Business (1) Within 1 to 2 weeks Comments: Call for followup appointment With: Address: When: Jean Marie Mccullough [address] [place] [address] Business (1) 07/23/2023 1:45 PM With: Address: When: Michelle Figueroa [address] [place] [address] Business (1) 07/17/2023 10:00 AM With: Address: When: Jhonatan MULLER - [facility], [facility], [address], [place] [address] 07/11/2023 8:20 AM Type Location Start [facility] Office Visit [facility] 09/12/2023 3:30 PM 09/12/2023 3:45 PM Confirmed Patient Education Information: Cellulitis, Adult, Kzmt-ge-Tbhv Normal [facility] Inpatient Patient Summaryon 07-10-2023 Inpatient Patient Summary [address] [address] Patient Discharge Instructions PERSON INFORMATION [...] Follow up: With: Address: When: Dixie Brandon [address] [place] [address] Business (1) Within 1 to 2 weeks Comments: Call for followup appointment With: Address: When: Jean Marie Mccullough [address] [place] [address] Business (1) 07/23/2023 1:45 PM With: Address: When: Michelle Figueroa [address] [place] [address] Business (1) 07/17/2023 10:00 AM With: Address: When: Jhonatan MULLER - [facility], [facility], [facility] [address], [place] [address] 07/11/2023 8:20 AM In the event that this physician does not participate in your insurance network, please consult with your insurance company to find a nearby participating provider. Type Location Start [facility] Office Visit [facility] LIZETH [place] 09/12/2023 3:30 PM 09/12/2023 3:45 PM Confirmed Comment: PRO Acevedo SR, MICHAEL, have received the attached patient education materials/instructions and have verbalized understanding: Patient Signature Date Clinican/Nurse Signature _ Date HERE ARE THE MEDICATION CHANGES THAT OCCURRED DURING YOUR HOSPITAL STAY New Medications [facility] 1985, [address] [place], [place] [id number], [phone] linezolid (Zyvox 600 mg Tab) 1 Tablets [...] Capsules By Mouth every day. Pharmacy Information: [facility] Comment: PATIENT EDUCATION INFORMATION Instructions: Cellulitis, Adult Cellulitis is a skin infection. The infected area is often warm, red, swollen, and sore. It occurs most often in the arms and lower legs. It is very import (more content not included)... Normal [facility] Interdisciplinary Note - Justin e Manageron 07-10-2023 Interdisciplinary Note - Slab Inspector Pt is asleep in bed, no family [...] on Linzolid cost checked at pt preferred [facility], with his insurance was over $400, but with good rx will be down to $51.50 and they have in stock currently. Pt updated on cost and pt is ok with cost. Nursing updated on DC plan [facility] Comment on above: Result Comment: Elec tronically Signed By: Chasidy ALMAGUER, Alaina\.joelle\Date and Time Signed: 07/10/23 15:15 EDT Monitor Recordon 07-10-2023 Monitor Record [id number]#1.00 TIFF [facility] Monitor Record [id number]#1.00 TIFF [facility] Progress Note-Physicianon Progress Note-Physician Assessment/Plan 68-year-old male [...] with IV Invanz and vancomycin. Seen by ice platform supervisor and had a bedside incision and drainage of blister/bullae. Status post wound dressing. MRI does not show any deep tissue abscess of bone involvement/osteomyelit is. Infectious disease consult pending. Vascular surgery consult?can be done as outpatient. Ordered: [facility] Hospital Care/Day Moderate 35 Minutes 98794 2. Wound of right ankle (S91.001A: Unspecified open wound, right ankle, initial encounter) Continue wound dressings. Wound cultures so far not isolating any organisms. Ordered: [facility] Care/Day Moderate 35 Minutes 44525 Wound Culture 3. Acute kidney injury (N17.9: Acute kidney failure, unspecified) Acute kidney injury?secondary to ATN from above infection, diuretics and lisinopril. Improved. Lisinopril and hydrochlorothiazide suspended. Treated with IV fluid. Ordered: [facility] Care/Day Moderate 35 Minutes 78559 4. Obese (E66.9: Obesity, unspecified) Recommend therapeutic lifestyle modification changes. Ordered: [facility] Care/Day Moderate 35 Minutes 87268 5. HTN (hypertension) (I10: Essential (primary) hypertension) [...] made to ensure accuracy. However inadvertent computerized getter welder errors may be present. Elvira Waller. Hospitalist. [...] stones Histori (more content not included)... Normal [facility] Comment on above: Result Comment: Elec tronically Signed By: AYANNA SUH, Elvira\.br\Date and Time Signed: 07/10/23 12:09 EDT BMPon 07-09-2023 Anion gap [Moles/Vol] 8 mmol/L Normal 6-16 [facility] Comment on above: Performed By: #### 2 [id number] #### [facility] [address] [place] [address] Calcium [Mass/Vol] 8.2 mg/dL Low 8.9-11.1 [facility] Comment on above: Performed By: #### 2 298709 #### [facility] [address] [place] [address] Chloride [Moles/Vol] 108 mmol/L Normal 101-111 [facility] Comment on above: Performed By: #### 2 661330 #### [facility] [address] [place] [address] CO2 [Moles/Vol] 27 mmol/L Normal 21-31 [facility] Comment on above: Performed By: #### 2 588537 #### [facility] [address] [place] [address] Creatinine [Mass/Vol] 1.4 mg/dL High 0.5-1.3 [facility] Comment on above: Performed By: #### 2 108266 #### [facility] [address] [place] [address] Glucose [Mass/Vol] 109 mg/dL Normal 55-199 [facility] Comment on above: Performed By: #### 2 325442 #### [facility] [address] [place] [address] Potassium [Moles/Vol] 3.8 mmol/L Normal 3.5-5.3 [facility] Comment on above: Performed By: #### 2 014672 #### [facility] [address] [place] [address] Sodium [Moles/Vol] 139 mmol/L Normal 135-145 [facility] Comment on above: Performed By: #### 2 452126 #### [facility] [address] [place] [address] Urea nitrogen [Mass/Vol] 16 mg/dL Normal 5-21 [facility] Comment on above: Performed By: #### 2 030476 #### [facility] [address] [place] [address] Urea nitrogen/Creatinine [Mass ratio] 11 No Units Normal 10-20 [facility] Comment on above: Performed By: #### 2 779015 #### [facility] [address] [place] [address] CHEMISTRYOrdered By: SYSTEM SYSTEM on 07-09-2023 Vanco [...] Justin e Manageron 07-09-2023 Interdisciplinary Note - Slab Inspector Pt is out of room for MRI [...] information reviewed. CRM following for needs. Normal [facility] Comment on above: Result Comment: Elec tronically [...] Vueway Contrast amount in ml's: 10 Normal [facility] MRI Tibia/Fibula w/ + w/o Co ntrast [...] osteomyelitis, or marrow replacing process. Joint: Large yehqv-zo-pekn imaging of the knee with degenerative changes with subchondral cystic change, probable tearing of the medial lateral meniscus, probable tearing of ACL, but overall not well evaluated on the large bhefc-zt-cxhu. Muscle: Mild diffuse fatty infiltration of the [...] tendons grossly intact within limits of large jhqtx-kk-ohnh. Small amount of increased fluid at the [...] Vueway Contrast amount in ml's: 10 Normal [facility] Message from Medicareon 06-20 Message from Medicare [id number]#1.00T IFF Normal [facility] Message from Medicare [id number]#1.00T IFF Normal [facility] Monitor Recordon 07-09-2023 Monitor Record [id number]#1.00 TIFF Normal [facility] Monitor Record [id number]#1.00 TIFF Normal [facility] Monitor Record [id number]#1.00 TIFF Normal [facility] Monitor Record [id number]#1.00 TIFF Normal [facility] No Panel InformationOrdered By: Maty Felix on 07-09-2023 GS No organisms seen. [facility] Wound Culture Scant growth of Staphylococcus species coagulase negative [facility] Progress Note - Pharmacyon 0 07-09-2023 [...] questions, please contact the pharmacy at extension [phone]. Age: 68 Years Allergies: aspirin Weight: Last [...] Vanco Pk: 27 mcg/mL (07/08/23 17:11:00) Normal [facility] Progress Note-Physicianon Progress Note-Physician Patient: JEAN MARIE [...] Problems Asymptomatic microscopic hematuria / SNOMED CT 9075766167 / Confirmed BPH with urinary obstruction / SNOMED CT 9554620261 / Confirmed kidney stones / SNOMED CT 073414647 / Confirmed, Active Problems (3) Asymptomatic microscopic [...] Right tibia (more content not included)... Normal [facility] Comment on above: Result Comment: Elec tronically [...] EDT Sbsq Hospital Care/Day Moderate 35 Minutes 04273 2. Wound of right ankle (S91.001A: Unspecified open wound, right ankle, initial encounter) Present during this admission. Wound culture. MRI of the foot pending. Ordered: ertapenem + Sodium Chloride 0.9% intravenous solution 50 mL, 500 mg = 0.5 EA, IV Piggyback, Daily, Routine, Start date 07/10/23 9:00:00 EDT, 100 mL/hr, Infuse over 30 minute(s), 07/09/23 12:12:00 EDT [facility] Care/Day Moderate 35 Minutes 26073 Wound Culture 3. Acute kidney injury (N17.9: Acute kidney failure, unspecified) Acute kidney injury?secondary to ATN from above infection, diuretic and lisinopril. Improved. Avoid nephrotoxic drugs. Lisinopril and hydrochlorothiazide suspended. Treated with IV fluid. Ordered: [facility] Care/Day Moderate 35 Minutes 63488 4. Obese (E66.9: Obesity, unspecified) Recommend therapeutic lifestyle modification changes. Ordered: [facility] Care/Day Moderate 35 Minutes 00002 5. HTN (hypertension) (I10: Essential (primary) hypertension) [...] made to ensure accuracy. However inadvertent computerized getter welder errors may be present. Elvira Waller. Hospitalist. [...] High (05 (more content not included)... Normal [facility] Comment on above: Result Comment: Elec tronically Signed By: AYANNA SUH, Shravanfo\.br\Date and Time Signed: 07/09/23 12:19 EDT RAD - MRI Screening Formon 0 07-09-2023 RAD - MRI Screening Form [id number]#1.0 0TIFF Normal [facility] Vanco Troughon 07-09-2023 Vanco Tr 9 microgram/mL Low 10-20 [facility] Comment on above: Performed By: #### 2 031694 ####[facility] [address] [place] [address] eGFRon 07-09-2023 eGFR 55 mL/min/1.73 m2 Low >=59 [facility] Comment on above: Order Comment: Order added by Discern Expert. Performed By: #### 1 [id number] #### [facility] [address] [place] [address] BMPon 07-08-2023 Anion gap [Moles/Vol] 10 mmol/L Normal 6-16 [facility] Comment on above: Performed By: #### 2 685213 #### [facility] [address] [place] [address] Calcium [Mass/Vol] 8.2 mg/dL Low 8.9-11.1 [facility] Comment on above: Performed By: #### 2 827841 #### [facility] [address] [place] [address] Chloride [Moles/Vol] 107 mmol/L Normal 101-111 [facility] Comment on above: Performed By: #### 2 678796 #### [facility] [address] [place] [address] CO2 [Moles/Vol] 25 mmol/L Normal 21-31 [facility] Comment on above: Performed By: #### 2 550661 #### [facility] [address] [place] [address] Creatinine [Mass/Vol] 1.4 mg/dL High 0.5-1.3 [facility] Comment on above: Performed By: #### 2 278739 #### [facility] [address] [place] [address] Glucose [Mass/Vol] 110 mg/dL Normal 55-199 [facility] Comment on above: Performed By: #### 2 477866 #### [facility] [address] [place] [address] Potassium [Moles/Vol] 3.9 mmol/L Normal 3.5-5.3 [facility] Comment on above: Performed By: #### 2 251163 #### [facility] [address] [place] [address] Sodium [Moles/Vol] 138 mmol/L Normal 135-145 [facility] Comment on above: Performed By: #### 2 339042 #### [facility] [address] [place] [address] Urea nitrogen [Mass/Vol] 21 mg/dL Normal 5-21 [facility] Comment on above: Performed By: #### 2 198987 #### [facility] [address] [place] [address] Urea nitrogen/Creatinine [Mass ratio] 15 No Units Normal 10-20 [facility] Comment on above: Performed By: #### 2 930297 #### [facility] [address] [place] [address] CHEMISTRYOrdered By: SYSTEM SYSTEM on 07-08-2023 Vanco [...] Problems Asymptomatic microscopic hematuria / SNOMED CT 8787351455 / Confirmed BPH with urinary obstruction / SNOMED CT 1736733080 / Confirmed kidney stones / SNOMED CT 119830091 / Confirmed, Active Problems (3) Asymptomatic microscopic [...] his tib-fib (more content not included)... Normal [facility] Comment on above: Result Comment: Elec tronically Signed By: Jhonatan Mariscal DPM.joelle\Date and Time Signed: 07/08/23 09:52 EDT Monitor Recordon 07-08-2023 Monitor Record [id number]#1.00 TIFF Normal [facility] Progress Note-Physicianon Progress Note-Physician Subjective Day 3 [...] control as needed Last for a.m. Ordered: [facility] Hospital Care/Day Moderate 35 Minutes 11883 2. Acute kidney injury (N17.9: Acute kidney failure, unspecified) Serum creatinine down to 1.4 FENa from yesterday was 1.8; may be intrinsic and he was taking HCTZ, lisinopril and Mobic in the outpatient setting which all have been held Ordered: Sbsq Hospital Care/Day Moderate 35 Minutes 43002 Orders: Basic Metabolic Panel eGFR Extra Lav [...] mg= 1 (more content not included)... Normal [facility] Comment on above: Result Comment: Elec tronically Signed By: Dwight Eddy DO\.br\Date and Time Signed: 07/08/23 12:44 EDT Vanco Peakon 07-08-2023 Vanco Pk 27 microgram/mL Normal 20-40 [facility] Comment on above: Order Comment: pleas e draw one hour after vancomycin infusion is complete Performed By: #### 2 073048 #### [facility] [address] [place] [address] XR Foot 3+ Views Righton XR Foot [...] mGy = . DAP = . Normal [facility] XR Tib/Fib Right 2 Viewon XR Tib/Fib [...] mGy = . DAP = . Normal [facility] eGFRon 07-08-2023 eGFR 55 mL/min/1.73 m2 Low >=59 [facility] Comment on above: Order Comment: Order added by Discern Expert. Performed By: #### 1 [id number] #### [facility] [address] [place] [address] BMPon 07-07-2023 Anion gap [Moles/Vol] 10 mmol/L Normal 6-16 [facility] Comment on above: Performed By: #### 2 [id number] #### [facility] [address] [place] [address] Calcium [Mass/Vol] 8.2 mg/dL Low 8.9-11.1 [facility] Comment on above: Performed By: #### 2 [id number] #### [facility] [address] [place] [address] Chloride [Moles/Vol] 106 mmol/L Normal 101-111 [facility] Comment on above: Performed By: #### 2 [id number] #### [facility] [address] [place] [address] CO2 [Moles/Vol] 25 mmol/L Normal 21-31 [facility] Comment on above: Performed By: #### 2 [id number] #### [facility] [address] [place] [address] Creatinine [Mass/Vol] 1.6 mg/dL High 0.5-1.3 [facility] Comment on above: Performed By: #### 2 [id number] #### [facility] [address] [place] [address] Glucose [Mass/Vol] 103 mg/dL Normal 55-199 [facility] Comment on above: Performed By: #### 2 [id number] #### [facility] [address] [place] [address] Potassium [Moles/Vol] 3.7 mmol/L Normal 3.5-5.3 [facility] Comment on above: Performed By: #### 2 235232 #### [facility] [address] [place] [address] Sodium [Moles/Vol] 137 mmol/L Normal 135-145 [facility] Comment on above: Performed By: #### 2 [id number] #### [facility] [address] [place] [address] Urea nitrogen [Mass/Vol] 27 mg/dL High 5-21 [facility] Comment on above: Performed By: #### 2 [id number] #### [facility] [address] [place] [address] Urea nitrogen/Creatinine [Mass ratio] 17 No Units Normal 10-20 [facility] Comment on above: Performed By: #### 2 [id number] #### [facility] [address] [place] [address] CBC w/ Auto Diffon 4 Basophils/100 WBC (Bld) 0.5 % Normal 0.0-2.0 [facility] Comment on above: Performed By: #### 2 537603 #### [facility] [address] [place] [address] Basophils/Leukocytes Auto (Bld) [Pure # fraction] 0.0 E9/L Normal 0.0-0.2 [facility] Comment on above: Performed By: #### 2 844235 #### [facility] [address] [place] [address] Eosinophils (Bld) [#/Vol] 0.2 E9/L Normal 0.0-0.5 [facility] Comment on above: Performed By: #### 2 242528 #### [facility] [address] [place] [address] Eosinophils/100 WBC (Bld) 3.0 % Normal 0.0-8.0 [facility] Comment on above: Performed By: #### 2 868170 #### [facility] [address] [place] [address] Erythrocyte distribution width (RBC) [Ratio] 13.6 % Normal 10.9-14.2 [facility] Comment on above: Performed By: #### 2 136674 #### [facility] [address] [place] [address] Hematocrit (Bld) [Volume fraction] 40.6 % Normal 37.7-49.0 [facility] Comment on above: Performed By: #### 2 515677 #### [facility] [address] [place] [address] Hemoglobin (Bld) [Mass/Vol] 13.8 g/dL Normal 13.5-17.5 [facility] Comment on above: Performed By: #### 2 980332 #### [facility] [address] [place] [address] Lymphocytes (Bld) [#/Vol] 1.7 E9/L Normal 1.0-4.0 [facility] Comment on above: Performed By: #### 2 718462 #### [facility] [address] [place] [address] Lymphocytes/100 WBC (Bld) 20.4 % Normal 14.0-50.0 [facility] Comment on above: Performed By: #### 2 822117 #### [facility] [address] [place] [address] MCH (RBC) [Entitic mass] 32.2 pg Normal 27.0-34.0 [facility] Comment on above: Performed By: #### 2 [id number] #### [facility] [address] [place] [address] MCHC (RBC) [Mass/Vol] 34.1 g/dL Normal 31.4-36.0 [facility] Comment on above: Performed By: #### 2 018697 #### [facility] [address] [place] [address] MCV (RBC) [Entitic vol] 94.5 fL Normal 80.0-100.0 [facility] Comment on above: Performed By: #### 2 914493 #### [facility] [address] [place] [address] Monocytes (Bld) [#/Vol] 0.5 E9/L Normal 0.2-1.0 [facility] Comment on above: Performed By: #### 2 508320 #### [facility] [address] [place] [address] Neutrophils (Bld) [#/Vol] 5.7 E9/L Normal 2.0-7.5 [facility] Comment on above: Performed By: #### 2 320768 #### [facility] [address] [place] [address] Neutrophils/100 WBC (Bld) 69.7 % Normal 36.0-75.0 [facility] Comment on above: Performed By: #### 2 458557 #### [facility] [address] [place] [address] Platelet mean volume (Bld) [Entitic vol] 8.6 fL Normal 6.4-10.8 [facility] Comment on above: Performed By: #### 2 711442 #### [facility] [address] [place] [address] Platelets (Bld) [#/Vol] 205.0 E9/L Normal 150.0-500.0 [facility] Comment on above: Performed By: #### 2 586172 #### [facility] [address] [place] [address] RBC (Bld) [#/Vol] 4.3 E12/L Normal 4.3-5.9 [facility] Comment on above: Performed By: #### 2 050740 #### [facility] [address] [place] [address] WBC corrected for nucl RBC Auto (Bld) [#/Vol] 8.1 E9/L Normal 4.0-11.0 [facility] Comment on above: Performed By: #### 2 267656 #### [facility] [address] [place] [address] CHEMISTRYOrdered By: SYSTEM SYSTEM on 07-07-2023 Anion [...] Monitor Recordon 07-07-2023 Monitor Record [id number]#1.00 TIFF Normal [facility] Monitor Record [id number]#1.00 TIFF Normal [facility] Monitor Record [id number]#1.00 TIFF Normal [facility] Monitor Record [id number]#1.00 TIFF Normal [facility] Monitor Record [id number]#1.00 TIFF Normal [facility] Monitor Record [id number]#1.00 TIFF Normal [facility] Progress Note-Physicianon Progress Note-Physician Subjective Detail vancomycin [...] 05:35:00) Lymph Auto: 20.4 % (07/07/23 05:35:00) [place] Auto: 6.4 % (07/07/23 05:35:00) Eos Auto: 3 % (07/07/23 05:35:00) Basophil Auto: 0.5 % (07/07/23 05:35:00) Neutro Absolute: 5.7 E9/L (07/07/23 05:35:00) Lymph Absolute: 1.7 E9/L (07/07/23 05:35:00) [place] Absolute: 0.5 E9/L (07/07/23 05:35:00) Eos Absolute: [...] Ordered: Initial Hospital Care/Day Moderate 55 Minutes 13396 2. Acute kidney injury (N17.9: Acute kidney failure, unspecified) FENa 1.8 which may be intrinsic; patient was taking HCTZ and lisinopril which had been held and he was also taking Mobic Creatinine down to 1.6 Continue to trend Ordered: Initial Hospital Care/Day Moderate 55 Minutes 67173 Orders: acetaminophen, 650 mg = 2 tab(s), Tab, Oral, q6hr PRN Pain, Routine, Start date 07/06/23 16:49:00 EDT, 07/06/23 16:49:00 EDT Al hydroxide/Mg hydroxide/simethicone, 30 mL, Susp-Or (more content not included)... Normal [facility] Comment on above: Result Comment: Elec tronically Signed By: Dwight Eddy DObr\Date and Time Signed: 07/07/23 14:55 EDT eGFRon 07-07-2023 eGFR 47 mL/min/1.73 m2 Low >=59 [facility] Comment on above: Order Comment: Order added by Discern Expert. Performed By: #### 1 [id number] #### [facility] [address] [place] [address] BMPon 07-06-2023 Anion gap [Moles/Vol] 12 mmol/L Normal 6-16 [facility] Comment on above: Performed By: #### 2 578540 #### [facility] [address] [place] [address] Calcium [Mass/Vol] 8.6 mg/dL Low 8.9-11.1 [facility] Comment on above: Performed By: #### 2 175205 #### [facility] [address] [place] [address] Chloride [Moles/Vol] 104 mmol/L Normal 101-111 [facility] Comment on above: Performed By: #### 2 470252 #### [facility] [address] [place] [address] CO2 [Moles/Vol] 25 mmol/L Normal 21-31 [facility] Comment on above: Performed By: #### 2 912459 #### [facility] [address] [place] [address] Creatinine [Mass/Vol] 1.8 mg/dL High 0.5-1.3 [facility] Comment on above: Performed By: #### 2 298175 #### [facility] [address] [place] [address] Glucose [Mass/Vol] 111 mg/dL Normal 55-199 [facility] Comment on above: Performed By: #### 2 487689 #### [facility] [address] [place] [address] Potassium [Moles/Vol] 3.5 mmol/L Normal 3.5-5.3 [facility] Comment on above: Performed By: #### 2 389223 #### [facility] [address] [place] [address] Sodium [Moles/Vol] 137 mmol/L Normal 135-145 [facility] Comment on above: Performed By: #### 2 157167 #### [facility] [address] [place] [address] Urea nitrogen [Mass/Vol] 29 mg/dL High 5-21 [facility] Comment on above: Performed By: #### 2 412849 #### [facility] [address] [place] [address] Urea nitrogen/Creatinine [Mass ratio] 16 No Units Normal 10-20 [facility] Comment on above: Performed By: #### 2 334674 #### [facility] [address] [place] [address] CBC w/ Auto Diffon 4 Basophils/100 WBC (Bld) 0.4 % Normal 0.0-2.0 [facility] Comment on above: Performed By: #### 2 518894 #### [facility] [address] [place] [address] Basophils/Leukocytes Auto (Bld) [Pure # fraction] 0.0 E9/L Normal 0.0-0.2 [facility] Comment on above: Performed By: #### 2 295884 #### [facility] [address] [place] [address] Eosinophils (Bld) [#/Vol] 0.2 E9/L Normal 0.0-0.5 [facility] Comment on above: Performed By: #### 2 975123 #### [facility] [address] [place] [address] Eosinophils/100 WBC (Bld) 2.8 % Normal 0.0-8.0 [facility] Comment on above: Performed By: #### 2 144735 #### [facility] [address] [place] [address] Erythrocyte distribution width (RBC) [Ratio] 13.9 % Normal 10.9-14.2 [facility] Comment on above: Performed By: #### 2 033097 #### [facility] [address] [place] [address] Hematocrit (Bld) [Volume fraction] 46.2 % Normal 37.7-49.0 [facility] Comment on above: Performed By: #### 2 028538 #### [facility] [address] [place] [address] Hemoglobin (Bld) [Mass/Vol] 15.6 g/dL Normal 13.5-17.5 [facility] Comment on above: Performed By: #### 2 135306 #### [facility] [address] [place] [address] Lymphocytes (Bld) [#/Vol] 1.3 E9/L Normal 1.0-4.0 [facility] Comment on above: Performed By: #### 2 250531 #### [facility] [address] [place] [address] Lymphocytes/100 WBC (Bld) 18.3 % Normal 14.0-50.0 [facility] Comment on above: Performed By: #### 2 261927 #### [facility] [address] [place] [address] MCH (RBC) [Entitic mass] 32.2 pg Normal 27.0-34.0 [facility] Comment on above: Performed By: #### 2 974212 #### [facility] [address] [place] [address] MCHC (RBC) [Mass/Vol] 33.7 g/dL Normal 31.4-36.0 [facility] Comment on above: Performed By: #### 2 719188 #### [facility] [address] [place] [address] MCV (RBC) [Entitic vol] 95.3 fL Normal 80.0-100.0 [facility] Comment on above: Performed By: #### 2 085064 #### [facility] [address] [place] [address] Monocytes (Bld) [#/Vol] 0.6 E9/L Normal 0.2-1.0 [facility] Comment on above: Performed By: #### 2 352328 #### [facility] [address] [place] [address] Neutrophils (Bld) [#/Vol] 4.9 E9/L Normal 2.0-7.5 [facility] Comment on above: Performed By: #### 2 674196 #### [facility] [address] [place] [address] Neutrophils/100 WBC (Bld) 70.2 % Normal 36.0-75.0 [facility] Comment on above: Performed By: #### 2 390148 #### [facility] [address] [place] [address] Platelet 189.0 E9/L Normal 150.0-500.0 [facility] Comment on above: Performed By: #### 2 913849 #### [facility] [address] [place] [address] Platelet mean volume (Bld) [Entitic vol] 8.5 fL Normal 6.4-10.8 [facility] Comment on above: Performed By: #### 2 584895 #### [facility] [address] [place] [address] RBC (Bld) [#/Vol] 4.8 E12/L Normal 4.3-5.9 [facility] Comment on above: Performed By: #### 2 745043 #### [facility] [address] [place] [address] WBC corrected for nucl RBC Auto (Bld) [#/Vol] 7.0 E9/L Normal 4.0-11.0 [facility] Comment on above: Performed By: #### 2 055948 #### [facility] [address] [place] [address] CHEMISTRYOrdered By: SYSTEM SYSTEM on 07-06-2023 Sodium [Moles/Vol] 127 mmol/L Invalid Interpretation Code Remisol Chem U Creatinine 93.5 mg/dL Invalid Interpretation Code Remisol Chem Lactic Acid Lvl 1.0 mmol/L Normal 0.5 - 2.2 mmol/L Remisol Chem Consent for Treatmenton 06-19 Consent for Treatment [id number]#1.00T IFF Normal [facility] ED Clinical Summaryon 2023 ED Clinical Summary (Inserted Image. Denisha ble to display) [address] [address] ED Clinical Summary Person Information Name: JEAN MARIE MAST SR/[facility] Age: 68 Years : 1955 Sex: Male Language: Pashto PCP: Michelle Figueroa MD Marital Status: Visit Id: Visit Reason: Cellulitis - Leg; Lower leg pain-swelling; SENT BY DR MARISCAL, LEG PAIN Speciality: Acuity: 3 Enc Type: Inpatient Med Service: Emergency Arrival: 07/06/2023 12:00:42 Discharge: LOS: 000 03:16 Checkin: 07/06/2023 12:00:42 Checkout: 07/06/2023 15:16:48 Dispo Type: Admitted as IP to this [facility] EVENTS: Event Name Event Status Request Date/Time [...] 14:38:53 Patient Care Request 07/06/2023 14:38:53 ADDRESS: [address] [place] [address] [address] [facility] [address] [facility] DOC NOTES: MEDICAL INFORMATION: Prescriptions Given: [...] up: DIAGNOSIS: 1:Cellulitis of right leg Normal [facility] ED Note-Physicianon 07-06-19 ED Note-Physician Basic Information [...] made to ensure accuracy, however, inadvertently computerized getter welder mistakes may be present. Appropriate healthcare PPE [...] mg= 1 (more content not included)... Normal [facility] Comment on above: Result Comment: Elec tronically Signed By: Franki Elias PA-C\.br\Date and Time Signed: 07/06/23 14:52 EDT\.br\Electronically Co-Signed By: Arnel Modi DO\.br\Date and Time Co-Signed: 07/06/23 15:54 EDT ED Patient Education Noteon 07-06-2023 ED Patient Education Note Normal [facility] ED Patient Summaryon 024 ED Patient Summary (Inserted Image. Denisha ble to display) [place] [address] Patient Discharge Instructions Person Information Name: JEAN MARIE MAST SR Age: 68 Years Arrival Date: 07/06/2023 12:00:42 Discharge Diagnosis: 1:Cellulitis of right leg Primary Care Physician: Michelle Figueroa MD Provider Information Primary Provider: Arnel Modi DO Advanced [employer] Police Officer:Franki Elias PA-C The exam and treatment you received in the Emergency Department were for an urgent problem and are not intended as complete care. It is important that you follow up with a doctor, nurse practitioner, or physician?s human resource assistant for ongoing care. If your symptoms [...] opioids can be used to help relieve isqpklcb-ke-kwbfox pain and are often prescribed following a [...] be struggling with addiction, tell your health critical care clinical nurse specialist and ask for guidance or call [facility]pl[facility] at [phone]. j Source: [place] Department of Health and Human Services/Center for Disease Control & Prevention [facility] Medications Given: Medicati (more content not included)... Normal [facility] HEMATOLOGYOrdered By: SYSTEM SYSTEM on 07-06-2023 Basophils/100 [...] Lactic Acid Lvl 1.0 mmol/L Normal 0.5-2.2 [facility] Comment on above: Performed By: #### 2 [id number] #### [facility] [address] [place] [address] No Panel InformationOrdered By: [facility] MICROBIOLOGY on 07-06-2023 Blood Culture Charcoal No growth at 4 da ys. Final to follow at [address] [facility] Blood Culture Charcoal No growth at 4 da ys. Final to follow at [address] [facility] Progress Note - Pharmacyon 0 07-06-2023 [...] questions please contact the pharmacy at extension [phone]. Age: 68 Years Allergies: aspirin Weight: Last [...] 12:34:00) Lymph Auto: 18.3 % (07/06/23 12:34:00) [place] Auto: 8.3 % (07/06/23:34:00) Eos Auto: 2.8 % (07/06/23:34:00) Basophil Auto: 0.4 % (07/06/23 12:34:00) Neutro Absolute: 4.9 E9/L (07/06/23 12:34:00) Lymph Absolute: 1.3 E9/L (07/06/23 12:34:00) [place] Absolute: 0.6 E9/L (07/06/23 12:34:00) Eos Absolute: [...] Acid Lvl: 1 mmol/L (07/06/23 12:34:00) Normal [facility] U Creatinineon 07-06-2023 U Creatinine 93.5 mg/dL Invalid Interpretation Code [facility] Comment on above: Performed By: #### 2 [id number] #### [facility] [address] [place] [address] U Sodiumon 07-06-2023 Sodium [Moles/Vol] 127 mmol/L Invalid Interpretation Code [facility] Comment on above: Performed By: #### 2 [id number] #### [facility] [address] [place] [address] URINALYSISOrdered By: SYSTEM SYSTEM on 07-06-2023 Bilirubin [...] that meet specific criteria set forth by [facility]. Glucose Ql (U) Negative Normal Negativemg/d [...] 06-19 Bilirubin Ql (U) Negative Normal Negative [facility] Comment on above: Performed By: #### 4 [id number] #### [facility] [address] [place] [address] Clarity (U) Clear Normal Clear [facility] Comment on above: Performed By: #### 4 [id number] #### [facility] [address] [place] [address] Color (U) Light-Yellow Normal Yellow [facility] Comment on above: Result Comment: Micr oscopic readings are only performed on those samples that meet specific criteria set forth by [facility]. Performed By: #### 4 [id number] #### [facility] [address] [place] [address] Glucose Ql (U) Negative Normal Negative [facility] Comment on above: Performed By: #### 4 [id number] #### [facility] [address] [place] [address] Hemoglobin Auto test strip (U) [Mass/Vol] Negative Normal Negative [facility] Comment on above: Performed By: #### 4 [id number] #### [facility] [address] [place] [address] Ketones Auto test strip Ql (U) Negative Normal Negative [facility] Comment on above: Performed By: #### 4 [id number] #### [facility] [address] [place] [address] Leukocyte esterase Auto test strip Ql (U) Negative Normal Negative [facility] Comment on above: Performed By: #### 4 [id number] #### [facility] [address] [place] [address] Nitrite Auto test strip Ql (U) Negative Normal Negative [facility] Comment on above: Performed By: #### 4 [id number] #### [facility] [address] [place] [address] pH (U) 5.5 [pH] Invalid Interpretation Code 5.0-9.0 [facility] Comment on above: Performed By: #### 4 [id number] #### [facility] [address] [place] [address] Protein Ql (U) Trace Abnormal Negative [facility] Comment on above: Performed By: #### 4 [id number] #### [facility] [address] [place] [address] Specific gravity (U) [Rel density] 1.020 Invalid Interpretation Code 1.005-1.030 [facility] Comment on above: Performed By: #### 4 [id number] #### [facility] [address] [place] [address] Urobilinogen (U) [Mass/Vol] Negative Normal Negative [facility] Comment on above: Performed By: #### 4 [id number] #### [facility] [address] [place] [address] Type of Urine collection method Random Urine Normal [facility] Comment on above: Performed By: #### 4 [id number] #### [facility] [address] [place] [address] eGFRon 07-06-2023 eGFR 41 mL/min/1.73 m2 Low >=59 [facility] Comment on above: Order Comment: Order added by Discern Expert. Performed By: #### 1 [id number] #### [facility] [address] [place] [address] US LE Venous Duplex Righton 07-04-2023 US [...] MD Transcribed by: LALY Technologist: SHERI Duncan [facility] Consent for Treatmenton 06-19 Consent for Treatment [id number]#1.00T IFF Normal [facility] Physician Orderon 07-03-2023 Physician Order [id number]#1.00TI FF Normal [facility] CHEMISTRYOrdered By: SYSTEM SYSTEM on 11-15-2021 Prostate specific Ag [Mass/Vol] 0.8 ng/mL Normal 0.1 - 3.5 ng/mL [facility] Remisol Vital Signs Date Time Vital Sign Value Performing Clinician Facility 08-15-2023 14:53-0400 Body height 185.42 cm [facility] 08-15-2023 14:53-0400 Body mass index (BMI) [Ratio] 31.4 kg/m2 [facility] 08-15-2023 14:53-0400 Body temperature 97.5 [degF] [facility] 08-15-2023 14:53-0400 Body weight 108 kg [facility] 08-15-2023 14:53-0400 Diastolic blood pressure 87 mm[Hg] [facility] 08-15-2023 14:53-0400 Heart rate 75 /min [facility] 08-15-2023 14:53-0400 Systolic blood pressure 135 mm[Hg] [facility] 07-25-2023 13:54-0400 Body height 185.42 cm [facility] 07-25-2023 13:54-0400 Body mass index (BMI) [Ratio] 31.6 kg/m2 [facility] 07-25-2023 13:54-0400 Body temperature 98.6 [degF] [facility] 07-25-2023 13:54-0400 Body weight 108.86 kg [facility] 07-25-2023 13:54-0400 Diastolic blood pressure 79 mm[Hg] [facility] 07-25-2023 13:54-0400 Heart rate 52 /min [facility] 07-25-2023 13:54-0400 Systolic blood pressure 142 mm[Hg] [facility] 07-10-2023 13:15-0400 Hourly Rounding Dwight Surjit [facility] 07-10-2023 12:29-0400 Hourly Rounding Dwight Surjit [facility] 07-10-2023 12:29-0400 Promise to Return Dwight Surjit [facility] 07-10-2023 12:01-0400 Heart rate 79 /min Dwight Surj[facility] 07-10-2023 12:01-0400 SaO2% (BldA) [Mass fraction] 95 % Dwight Surjit [facility] 07-10-2023 12:00-0400 Body temperature 97.34 [degF] Dwight Surjit [facility] 07-10-2023 12:00-0400 Diastolic blood pressure 86 mm[Hg] Dwight Surjit [facility] 07-10-2023 12:00-0400 Mean blood pressure 105 mm[Hg] Dwight Surjit [facility] 07-10-2023 12:00-0400 Systolic blood pressure 142 mm[Hg] Dwight Surjit [facility] 07-10-2023 11:11-0400 Hourly Rounding Dwight Surjit [facility] 07-10-2023 11:11-0400 Promise to Return Dwight Surjit [facility] 07-10-2023 10:08-0400 Promise to Return Dwight Surjit [facility] 07-10-2023 07:51-0400 Heart rate 74 /min Dwight Surj[facility] 07-10-2023 07:51-0400 SaO2% (BldA) [Mass fraction] 94 % Dwight Orellanaer [facility] 07-10-2023 07:50-0400 Diastolic blood pressure 81 mm[Hg] Dwight Orellanaer [facility] 07-10-2023 07:50-0400 Mean blood pressure 106 mm[Hg] Dwight Orellanaer [facility] 07-10-2023 07:50-0400 Systolic blood pressure 154 mm[Hg] Dwight Boxcker [facility] 07-10-2023 07:50-0400 Body temperature 98.24 [degF] Dwight Boxcker [facility] 07-10-2023 00:10-0400 Blood Pressure Location Dwihgt Orellanaer [facility] 07-10-2023 00:10-0400 Body temperature 98.24 [degF] Dwight Surjit [facility] 07-10-2023 00:10-0400 Diastolic blood pressure 69 mm[Hg] Dwight Orellanaer [facility] 07-10-2023 00:10-0400 Heart rate 83 /min Dwight Orellanaer [facility] 07-10-2023 00:10-0400 Mean blood pressure 92 mm[Hg] Dwight Boxcker [facility] 07-10-2023 00:10-0400 Respiratory rate 18 /min Dwight Boxcker [facility] 07-10-2023 00:10-0400 SaO2% (BldA) [Mass fraction] 93 % Dwight Surjit [facility] 07-10-2023 00:10-0400 Systolic blood pressure 139 mm[Hg] Dwight Orellanaer [facility] 07-09-2023 19:25-0400 Heart rate 80 /min Dwight Surjit [facility] 07-09-2023 19:21-0400 Respiratory rate 16 /min Dwight Boxcker [facility] 07-09-2023 19:21-0400 Body temperature 98.06 [degF] Dwight Orellanaer [facility] 07-09-2023 19:21-0400 Mean blood pressure 91 mm[Hg] Dwight Boxcker [facility] 07-09-2023 05:51-0400 Blood Pressure Location Dwight Orellanaer [facility] 07-09-2023 05:51-0400 Body temperature 98.24 [degF] Dwight Orellanaer [facility] 07-09-2023 05:51-0400 Heart rate 73 /min Dwight Orellanaer [facility] 07-09-2023 05:51-0400 Mean blood pressure 96 mm[Hg] Dwight Boxcker [facility] 07-09-2023 05:51-0400 Respiratory rate 18 /min Dwight Boxcker [facility] 07-09-2023 00:10-0400 Blood Pressure Location Dwight Boxcker [facility] 07-09-2023 00:10-0400 Body temperature 98.42 [degF] Dwight Boxcker [facility] 07-09-2023 00:10-0400 Heart rate 69 /min Dwight Boxcker [facility] 07-09-2023 00:10-0400 Mean blood pressure 91 mm[Hg] Dwight Eddy [facility] 04-02-2023 13:09-0500 Body height 185.4 cm Gerald Padilla MD Work Phone: [facility] 04-02-2023 13:09-0500 Body mass index (BMI) [Ratio] 31.14 kg/m2 Gerald Padilla MD Work Phone: [facility] 04-02-2023 13:09-0500 Body weight 107.05 kg Gerald Padilla MD Work Phone: [facility] 04-02-2023 13:09-0500 Diastolic blood pressure 77 mm[Hg] Gerald Padilla MD Work Phone: [facility] 04-02-2023 13:09-0500 Systolic blood pressure 137 mm[Hg] Gerald Padilla MD Work Phone: [facility] 03-21-2023 14:55-0500 Body height 185.4 cm Cynthia Pocos DO Work Phone: [facility] 03-21-2023 14:55-0500 Body mass index (BMI) [Ratio] 31.14 kg/m2 Cynthia Pocos DO Work Phone: [facility] 03-21-2023 14:55-0500 Body weight 107.05 kg Cynthia Pocos DO Work Phone: [facility] 11-21-2021 08:55-0400 Blood Pressure Location Taras BARBA [facility] 11-21-2021 08:55-0400 Diastolic blood pressure 111 mm[Hg] Taras BARBA [facility] 11-21-2021 08:55-0400 Heart rate 73 /min Taras BARBA [facility] 11-21-2021 08:55-0400 Respiratory rate 16 /min Taras BARBA [facility] 11-21-2021 08:55-0400 Systolic blood pressure 148 mm[Hg] Taras BARBA [facility] Encounters Encounter Date Encounter Type Care Provider Facility Start: 09-12-2023 ambulatory Taras BARBA Facility :[facility] Start: 09-12-2023 End: 09-12-2023 Patient encounter procedure Taras BARBA [facility] Start: 09-10-2023 End: 09-10-2023 ambulatory JHONATAN BAUTISTACE Not Available Start: 09-04-2023 End: 09-04-2023 ambulatory Taras BARBA Facility:[facility] Start: 09-04-2023 End: 09-04-2023 Patient encounter procedure Taras BARBA [facility] Start: 08-31-2023 End: 08-31-2023 ambulatory MICHELLE FIGUEROA Not Available Start: 08-27-2023 End: 08-27-2023 ambulatory JHONATAN Richardson DOLCE Not Available Start: 08-16-2023 End: 08-16-2023 ambulatory MICHELLE FIGUEROA Not Available Start: 08-16-2023 End: 08-16-2023 ambulatory DO Jose Manuel Figueroa Facility:[facility] Start: 08-15-2023 End: 08-15-2023 ambulatory [facility] Work Phone: Start: 08-15-2023 End: 08-15-2023 Patient encounter procedure Pending Sale To [facility] Work Phone: Start: 08-06-2023 End: 08-07-2023 Pre-admission assessment Dixie Brandon [facility] Start: 07-27-2023 End: 07-27-2023 ambulatory JHONATAN D DOLCE Not Available Start: 07-25-2023 End: 07-25-2023 ambulatory [facility] Work Phone: Start: 07-25-2023 End: 07-25-2023 Patient encounter procedure Pending Sale To [facility] Work Phone: Start: 07-18-2023 End: 07-18-2023 ambulatory JHONATAN D DOLCE Not Available Start: 07-17-2023 End: 07-17-2023 ambulatory MICHELLE Barlow FIGUEROA Not Available Start: 07-11-2023 End: 07-11-2023 ambulatory JHONATAN D DOLCE Not Available Start: 07-06-2023 End: 07-10-2023 Evaluation and management of inpatient Elvira WALLER Facility:[facility] Start: 07-06-2023 Emergency department patient visit Arnel Modi Facility:[facility] Start: 07-06-2023 End: 07-10-2023 Evaluation and management of inpatient Dwight BarlowArti Eddy [facility] Start: 07-04-2023 End: 07-04-2023 ambulatory JHONATAN D DOLCE Not Available Start: 07-03-2023 End: 07-03-2023 ambulatory Jhonatan D Dolce Facility:[facility] Start: 07-03-2023 End: 07-03-2023 Patient encounter procedure Jhonatan D Dolce [facility] Start: 07-03-2023 End: 07-03-2023 ambulatory JHONATAN [...] Bamboo flowsheet Gerald martinez MD Work Phone: [facility] Start: 04-02-2023 Bamboo flowsheet Gerald martinez MD Work Phone: [facility] Start: 04-02-2023 End: 04-02-2023 Office outpatient new 30 minutes Gerald Padilla MD Work Phone: [facility] Comment on above: Bilateral tinnitus ( Primary Dx); Sensorineural hearing loss (SNHL), bilateral Start: 04-02-2023 End: 04-02-2023 ambulatory GERALD PADILLA Not Available Start: 03-30-2023 Chart abstracting Gerald rodriguez MD Work Phone: [facility] Start: 03-26-2023 Chart abstracting Cynthia [...] encounter procedure Taras BARBA [facility] Start: 11-15-2021 End: 11-15-2021 Patient encounter procedure Taras BARBA [facility] Procedures Date Procedure Procedure Detail Performing [...] Annual Wellness (AWV) Medicare Annual Wellness (AWV) [facility] Start: 04-23-2023 End: 04-23-2023 Patient encounter procedure 04/23/2023 3:45 PM EST Office Visit [facility] [address] [place] [id number] Cynthia Henderson DO [address] [place] [address] [facility] Start: 04-02-2023 End: 04-02-2023 ambulatory 04/02/2023 6:00 PM EST Evaluation [facility] [address] [place] [id number] Sherie Hough, PT [address] [place] [address] [facility] Start: 04-02-2023 End: 04-02-2023 Patient encounter procedure [facility] [place] Comment on above: Arrived Start: 10-20-2022 Influenza vaccination Influenza Vacc ine (#1) [facility] Start: 02-23-2021 Pneumococcal Vaccine : 65+ Years (1 - PCV) Pneumococcal Vaccine: 65+ Years (1 - PCV) [facility] Start: 1955 Screening for malign ant neoplasm of colon [facility] XR Lumbar spine 2 or 3 Views XR lumbar spine 2 or 3 views Imaging Routine Hip pain, bilateral 03/21/2023 2:51 PM EST [facility] XR Pelvis AP and Hip - bilateral GE 2 Views XR hips bilateral 2 views Imaging Routine Hip pain, bilateral 03/21/2023 2:51 PM EST [facility] Work Phone: Immunizations Immunization Date Immunization Notes Care Provider Mercedes perez 07-11-2013 tetanus toxoid, redu troy diphtheria toxoid, and acellular pertussis vaccine, adsorbed Taras JAMESON [facility] Payers Date Payer Category Payer Unknown [employer] [id number] 2022-Present [id number] [employer] [place] [id number] 2021 Medicare [id number] 2021 Medicare MEDICARE MEDICAR E PART B [id number] 2021-[place] [address] [place] [address] Medicare [id number] 2021 Medicare [id number] 1955 Unknown [id number] 2.16.840.1.598585.3.579.2.727 1956 Unknown [id number] 2.16.840.1.096291.3.579.2.727 1956 Unknown [id number] 2.16.840.1.155069.3.579.2.727 1956 Unknown [id number] 2.16.840.1.370637.3.579.2.727 1956 Unknown [id number] 2.16.840.1.452097.3.579.2.727 1956 Unknown [id number] 2.16.840.1.902921.3.579.2.727 1956 Unknown [id number] 2.16.840.1.906880.3.579.2.125 9 1956 Unknown [id number] 2.16.840.1.758595.3.579.2.125 9 1956 Unknown [id number] 2.16.840.1.191169.3.579.2.125 9 1956 Unknown [id number] 2.16.840.1.008524.3.579.2.125 9 1956 Unknown [id number] 2.16.840.1.437091.3.579.2.125 9 1956 Unknown [id number] 2.16.840.1.287095.3.579.2.125 1956 Unknown [id number] 2.16.840.1.899569.3.579.2.125 1956 Unknown [id number] 2.16.840.1.605136.3.579.2.125 1956 Unknown [id number] 2.16.840.1.137508.3.579.2.125 1956 Unknown [id number] 2.16.840.1.073738.3.579.2.125 1956 Unknown [id number] 2.16.840.1.513488.3.579.2.125 1956 Unknown [id number] 2.16.840.1.586985.3.579.2.125 1956 Unknown [id number] 2.16.840.1.833868.3.579.2.125 1956 Unknown [id number] 2.16.840.1.226463.3.579.2.125 1956 Unknown [id number] 2.16.840.1.195172.3.579.2.125 1956 Unknown [id number] 2.16.840.1.734110.3.579.2.125 1956 Unknown [id number] 2.16.840.1.203190.3.579.2.125 1956 Unknown [id number] 2.16.840.1.129262.3.579.2.125 1956 Unknown [id number] 2.16.840.1.585191.3.579.2.125 1956 Unknown [id number] 2.16.840.1.356907.3.579.2.125 1956 Unknown [id number] 2.16.840.1.181126.3.579.2.125 9 1956 Unknown [id number] 2.16.840.1.426157.3.579.2.125 1956 Unknown [id number] 2.16.840.1.459533.3.579.2.125 1956 Unknown [id number] 2.16.840.1.625284.3.579.2.125 1956 Unknown [id number] 2.16.840.1.896849.3.579.2.125 1956 Unknown [id number] 2.16.840.1.003829.3.579.2.125 1956 Unknown [id number] 2.16.840.1.087305.3.579.2.125 1956 Unknown [id number] 2.16.840.1.700127.3.579.2.125 1956 Unknown [id number] 2.16.840.1.731458.3.579.2.125 1956 Unknown [id number] 2.16.840.1.450020.3.579.2.125 1956 Unknown [id number] 2.16.840.1.528344.3.579.2.125 1956 Unknown [id number] 2.16.840.1.727025.3.579.2.125 1956 Unknown [id number] 2.16.840.1.004519.3.579.2.125 1956 Unknown [id number] 2.16.840.1.407539.3.579.2.125 1956 Unknown [id number] 2.16.840.1.663758.3.579.2.125 1956 Unknown [id number] 2.16.840.1.244871.3.579.2.125 9 Unknown Regular Insurance [id number] Social History Date Type Detail Facility Start: 11-26-2019 End: 09-12-2023 Tobacco smoking status Ex-smoker (finding) [facility] Tobacco smoking status Never [facility] Start: 08-04-2022 End: 03-21-[address] Male [facility] End: 02-19-1989 History of tobacco use Current smoker [facility] End: 02-19-1989 History of tobacco use Cigarette Smoker [facility] Start: 08-12-2022 Tobacco use and exposure Former smokeless tobacco user [facility] End: 02-19-1989 History of tobacco use Chews Tobacco [facility] Start: 03-21-2023 End: 04-02-2023 Alcohol intake Lifetime non-drinker (finding) [facility] Start: 08-04-2022 End: 03-21-2023 History of Social function [facility] Start: 08-12-2022 Tobacco Comment Last smoked: > 10 years [facility] Start: 08-12-2022 Alcohol Comment Caffeine intak e: 3-4 cups per day soda/pop, energy drinks, tea [facility] Start: 1955 Sex Assigned At Not on file [facility] Start: 07-25-2023 Tobacco smoking status NHIS Never smoked tobacco (finding) [facility] Start: 1955 Sex Assigned At Male [facility] NEGATED: Highlighted rowStart: NINF History of tobacco use Passive smoker [facility] Functional Status Date Assessment Result Facility 07-06-2023 Functional Status N/A [facility] 07-06-[address] [facility] 11-21-2021 Functional Status N/A [facility] [place] Clinical Notes 11-21-2021 to 09-12-2023 Note Date [...] treatment? Where to find more information [employer]: www.cancer.org [place] [employer]: www.auanet.org Contact a health care [...] provider. Document Revised: 08/01/2021 Document Reviewed: 08/01/2021 [employer]Pad Patient Education 2022 [employer]. Follow Up Care 11/21/2021 09:22:02 With:JAMESON SUH, Taras Duncan, URL Address: [address] [place], [place] [id number]- When: Unknown [facility] 07-13-2023 Note Microbiology PROCEDURE: Blood Culture Charcoal [R1] SOURCE: Blood BODY SITE: Hand R COLLECTED DATE/TIME: 07/06/2023 12:25 EDT RECEIVED DATE/TIME: 07/06/2023 13:00 EDT START DATE/TIME: 07/06/2023 13:00 EDT FREE TEXT SOURCE: Curt VARGAS, Franki Elias PA-C, Franki FINAL REPORTS Final Report [] Verified Date/Time: 07/13/2023 15:00 EDT No growth at 7 days. Performing Locations R1: This test was performed at: [facility], [address] [place] [address], [address] [place] [address], [facility] Comment on above: Performed By: #### 1 [id number] #### [facility] [address] [place] [id number] 07-13-2023 Note Microbiology PROCEDURE: Blood Culture Charcoal [R1] SOURCE: Blood BODY SITE: Arm L COLLECTED DATE/TIME: 07/06/2023 12:34 EDT RECEIVED DATE/TIME: 07/06/2023 13:01 EDT START DATE/TIME: 07/06/2023 13:01 EDT FREE TEXT SOURCE: Curt VARGAS, Franki Yanez PA-C FINAL REPORTS Final Report [] Verified Date/Time: 07/13/2023 15:00 EDT No growth at 7 days. Performing Locations R1: This test was performed at: [facility], [address] [place] [address], [address] [place] [address], [address] [place] [address] Comment on above: Performed By: #### 1 [id number] #### [facility] [address] [place] [address] 07-11-2023 Note Microbiology PROCEDURE: Wound Culture [R1] [...] This test was performed at: [facility], [address] [place] [address], [address] [place] [address], [address] [place] [address] Comment on above: Performed By: #### 2 [id number] #### [facility] [address] [place] [address] 07-10-2023 Note Admission and Discha rge Information [...] (08/04/2015), Abdominal hernia. 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 He was subsequently admitted to [facility] with acute cellulitis of the right leg secondary to infected right ankle wound and suspected erysipelas. He was also admitted with Acute kidney injury secondary to ATN from infection, meloxicam, hydrochlorothiazide and lisinopril.. He was treated with IV Invanz, IV vancomycin, IV fluid, as needed pain medications. He was seen in consultation by the infectious disease specialist as well as the ice platform supervisor. Carbon Printer did a bedside incision and drainage of [...] Patient to follow-up with infectious disease specialist, ice platform supervisor as well as his primary care physician accordingly. He will also follow-up with the vascular surgeon. New medication: Zyvox 600 mg twice daily x 2 weeks. Medications discontinued: Hydrochlorothiazide Meloxicam Services Consulted Consult to Infectious Disease Physician - Ordered -- 07/09/23 17:27:00 EDT, Cellulitis right leg, Consult and Co-manage Consult to Carbon Printer - Ordered -- 07/06/23 16:50:00 EDT, RLE [...] Marie Mccullough 07/23/2023 (more content not included)... [facility] Comment on above: Result Comment: Elec tronically Signed By: AYANNA SUH, Shravanfo\.br\Date and Time Signed: 07/10/23 15:51 EDT 07-10-2023 Hospital Discharge instructions Patient Education 07/10/2023 15:22:59 Cellulitis, Adult, Vrfs-vd-Wetu Cellulitis, Adult Cellulitis is a skin infection. [...] Follow these instructions at home: Medicines Take rnqw-dsy-fnsgktq and prescription medicines only as told by [...] provider. Document Revised: 11/17/2021 Document Reviewed: 11/17/2021 ScriptPad Patient Education 2022 [employer]. Follow Up Care 07/06/2023 12:01:51 With:Dixie Brandon Address: [address] [place] [phone] Business (1) When:1 to 2 weeks Comments:Call for followup appointment With:Jean Marie Mccullough Address: [address] [place] [address]- Business (1) When:07/23/2023 13:45:00 With:Michelle Figueroa Address: [address] [place] [address]- Business (1) When:07/17/2023 10:00:00 With:Jhonatan Mariscal Address: [facility] [place] [address] [place] [address]- When:07/11/2023 08:20:00 [facility] 07-10-2023 Evaluation + Plan note Extrac dse from: Title:Discharge Note Author:AYANNA SUH, Mbanefo Dylan [...] PM EDT [address] [place] [address]- Business (1) Additional Instructions: Michelle Figueroa 07/17/2023 10:00 AM EDT [address] [place] [address]- Business (1) Additional Instructions: Jhonatan Mariscal 07/11/2023 08:20 AM EDT [facility] [address] [place] [address]- Additional Instructions: Dixie Brandon Within 1 to 2 weeks [address] [place] [address]- Business (1) Additional Instructions: Call for followup appointment Cellulitis, Adult, Wnnm-cs-Txar Extracted from: Title:Infection Admission H&P * Author:Jean [...] with IV Invanz and vancomycin. Seen by ice platform supervisor and had a bedside incision and drainage of blister/bullae. Status post wound dressing. MRI does not show any deep tissue abscess of bone involvement/osteomyelitis. Infectious disease consult pending. Vascular surgery consult can be done as outpatient. Ordered: [facility] Care/Day Moderate 35 Minutes 44525 2. Wound of right ankle (S91.001A: Unspecified open wound, right ankle, initial encounter) Continue wound dressings. Wound cultures so far not isolating any organisms. Ordered: [facility] Care/Day Moderate 35 Minutes 39188 Wound Culture 3. Acute kidney injury (N17.9: Acute kidney failure, unspecified) Acute kidney injury secondary to ATN from above infection, diuretics and lisinopril. Improved. Lisinopril and hydrochlorothiazide suspended. Treated with IV fluid. Ordered: [facility] Care/Day Moderate 35 Minutes 79814 4. Obese (E66.9: Obesity, unspecified) Recommend therapeutic lifestyle modification changes. Ordered: [facility] Care/Day Moderate 35 Minutes [id number] 5. HTN (hypertension) (I10: Essential (primary) hypertension) [...] made to ensure accuracy. However inadvertent computerized getter welder errors may be present. Elvira Waller. Hospitalist. [...] Infuse over 30 minute(s), 07/09/23 12:12:00 EDT [facility] Care/Day Moderate 35 Minutes [id number] 2. Wound of right ankle (S91.001A: Unspecified open wound, right ankle, initial encounter) Present during this admission. Wound culture. MRI of the foot pending. Ordered: ertapenem + Sodium Chloride 0.9% intravenous solution 50 mL, 500 mg = 0.5 EA, IV Piggyback, Daily, Routine, Start date 07/10/23 9:00:00 EDT, 100 mL/hr, Infuse over 30 minute(s), 07/09/23 12:12:00 EDT [facility] Care/Day Moderate 35 Minutes 02175 Wound Culture 3. Acute kidney injury (N17.9: Acute kidney failure, unspecified) Acute kidney injury secondary to ATN from above infection, diuretic and lisinopril. Improved. Avoid nephrotoxic drugs. Lisinopril and hydrochlorothiazide suspended. Treated with IV fluid. Ordered: [facility] Care/Day Moderate 35 Minutes [id number] 4. Obese (E66.9: Obesity, unspecified) Recommend therapeutic lifestyle modification changes. Ordered: [facility] Care/Day Moderate 35 Minutes [id number] 5. HTN (hypertension) (I10: Essential (primary) hypertension) [...] made to ensure accuracy. However inadvertent computerized getter welder errors may be present. Elvira Waller. Hospitalist. [...] control as needed Last for a.m. Ordered: [facility] Care/Day Moderate 35 Minutes 92267 2. Acute kidney injury (N17.9: Acute kidney failure, unspecified) Serum creatinine down to 1.4 FENa from yesterday was 1.8; may be intrinsic and he was taking HCTZ, lisinopril and Mobic in the outpatient setting which all have been held Ordered: [facility] Care/Day Moderate 35 Minutes [id number] Orders: Basic Metabolic Panel eGFR Extra Lav [...] Ordered: Initial Hospital Care/Day Moderate 55 Minutes [id number] 2. Acute kidney injury (N17.9: Acute kidney failure, unspecified) FENa 1.8 which may be intrinsic; patient was taking HCTZ and lisinopril which had been held and he was also taking Mobic Creatinine down to 1.6 Continue to trend Ordered: Initial Hospital Care/Day Moderate 55 Minutes [id number] Orders: acetaminophen, 650 mg = 2 tab(s), [...] Diet CBC w/ Auto Diff Consult to Carbon Printer Creatinine Urine eGFR Notify Provider Vital Signs [...] Diet CBC w/ Auto Diff Consult to Carbon Printer Creatinine Urine Notify Provider Vital Signs Notify [...] Date:09/12/2023 03:30:00 PM Scheduled Provider:Taras BARBA MD Location:[facility] Appointment Type:URO Office Visit Diagnostic Tests Pending * Vancomycin Level Trough 07/12/23 Future Scheduled Tests Laboratory* PSA Total 11/21/22 * Basic Metabolic Panel 07/17/23 Radiology* XR Abdomen 1 View 11/21/22 [facility]05-17-2024 NoteBasic Information Admit Date/Time:07/06/2023 14:38 Chief [...] initially his leg on Sunday felt like hhik-pye-dbrkmqp. 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 Not interested in referral to [facility] Tinnitus managementclinic [facility] [id number] History of Present illness Narrative* Carlotta Morrison [...] History: Procedure Laterality Date HERNIA REPAIR 2013 [place] REMOVAL OF KIDNEY STONE 2016 x3 FAMILY [...] to Dr. Michelle Figueroa. documented in this encounterSSM [facility] Children's [id number] Hospital Discharge instructions Patient Education 11/21/2021 09:20:07 Kidney Stones, Wmtl-rb-Chrm Kidney Stones Kidney stones are rock-like masses [...] Follow these instructions at home: Medicines Take nbcf-mbj-rqefqmo and prescription medicines only as told by [...] 07/24/2008 Document Revised: 06/24/2019 Document Reviewed: 06/24/2019 ScriptPad Patient Education 2020 [employer]. Follow Up Care 01/24/2021 08:12:17 With:Taras BARBA MD, URL Address: [address] [place], [place] [id number]- When:Within 18 Month(s) Comments:w/psa and kub [facility] Evaluation + Plan note Future Appointments Appointment Date:11/21/2021 08:45:00 AM Scheduled Provider:Taras BARBA MD Location:[facility] Appointment Type[facility]O [facility] Future Appointments Appointment Date:05/21/2023 08:00:00 AM Scheduled Provider:Taras BARBA MD Location:[facility] Appointment Type:URO Office Visit Future Scheduled Tests Laboratory* PSA Total 11/21/22 Radiology* XR Abdomen 1 View 11/21/22 [facility] Evaluation + Plan note Future Appointments Appointment Date:09/12/2023 03:30:00 PM Scheduled Provider:Taras BARBA MD Location:[facility] Appointment Type:URO Office Visit Future Scheduled Tests Laboratory* PSA Total 11/21/22 Radiology* XR Abdomen 1 View [facility] Future Appointments Appointment Date:09/12/2023 03:30:00 PM Scheduled Provider:Taras BARBA MD Location:[facility] Appointment Type:URO Office Visit Future Scheduled Tests Laboratory* PSA Total 11/21/22 * Basic Metabolic Panel 07/17/23 Radiology* XR Abdomen 1 View [facility] Future Appointments Appointment Date:09/12/2023 03:30:00 PM Scheduled Provider:Taras BARBA MD Location:[facility] Appointment Type:URO Office Visit Future Scheduled Tests Laboratory* Basic Metabolic Panel [facility] Future Appointments Appointment Date:03/19/2024 03:30:00 PM Scheduled Provider:Taras BARBA MD Location:[facility] Appointment Type:URO Office Visit Future Scheduled Tests Laboratory* PSA Free & Total 01/20/24 * Basic Metabolic Panel 07/17/23 [facility] Evaluation note* Diagnosis Hip pain, bilateral- [...] [facility] noteNo assessment information [facility] Work Phone: Evaluation note* Diagnosis Onset Date Resolution Status Erysipelas of right lower extremity acute [facility] Work Phone: Hospital course Narrative No data available [facility] this [facility] No data available [facility] No data available [facility] this [facility] Reason for Referral Specialty Diagnoses / Procedures Referred By Damien t Referred To Contact Physical Therapy Diagnoses Hip pain, bilateral Left hip pain Lumbar spondylosis 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 Procedures [place] OFFICE/OUTPATIENT NEW HIGH MDM 60 MINUTES Cynthia Henderson, DO [address] [place] [address] Cynthia Ramirez, PT [address] [place] [address] Referral ID Status Reason Start Date Expiration Date Visits Requested Visits Authorized [id number] Authorized Consult and Treat 03/21/2023 09/17/2023 10 [...] hip pain Michelle Figueroa MD [address] [place] [address] Cynthia Henderson, DO [address] [place] [address] Referral ID Status Reason Start Date Expiration Date V isits Requested Visits Authorized [id number] Closed Specialty Services Required 03/13/2023 09/09/2023 1 [...] MD Address: Address: [address] [place] [address]- Psych Np Relationship Specialty Start Date End Date Michelle Figueroa MD [address] [place] [address] PCP - General Family Medicine 07/05/22 Michelle Figueroa MD [address] [place] [address] PCP - ACO Reach 07/13/22 (unrecognized sect [...] CREATED AUTHOR AUTHOR'S ORGANIZ ATION 07/10/2023 [facility] DATE CREATED AUTHOR AUTHOR'S ORGANIZ ATION 07/11/2023 [facility] DATE CREATED AUTHOR AUTHOR'S ORGANIZ ATION 07/13/2023 [facility] DATE CREATED AUTHOR AUTHOR'S ORGANIZ ATION 07/15/2023 [facility] DATE CREATED AUTHOR AUTHOR'S ORGANIZ ATION 08/23/2023 [facility] DATE CREATED AUTHOR AUTHOR'S ORGANIZ ATION 09/07/2023 [facility] DATE CREATED AUTHOR AUTHOR'S ORGANIZ ATION 09/08/2023 [facility] DATE CREATED AUTHOR AUTHOR'S ORGANIZ ATION 09/11/2023 [facility] DATE CREATED AUTHOR AUTHOR'S ORGANIZ ATION 09/12/2023 [facility] DATE CREATED AUTHOR AUTHOR'S ORGANIZ ATION 09/12/2023 [facility] Goals (unrecognized section and content) [...] BE BASED ON THE PRIMARY CLINICAL RECORDS. [employer] provides no warranty or guarantee of the accuracy or completeness of information in this document.
--- NOTE | 2023-09-28 09:05 | P.DS_ITS ---
Discharge Plan Discharge Disposition: Home, Self-Care Outpatient Diagnostics: VC INJ Foam Sclerosant WURenea TRADE CLERK (Routine) Timeframe: 2 Weeks Facility: [facility] - Location: [facility] Ordered By: Viktor Hernandez Follow Up Appointments: Patient will call to schedule Plan of Treatment: Varithena/microfoam of right leg Print Language: Hungarian Discharge Date/Time: 09/28/23 09:06
== END 2023-09-28 09:06 | disposition home or self-care (01) ==
PROVIDERS: PCP Radiology Diagnostic Radiology; Visit Provider Radiology Diagnostic Radiology
DX: I80.01 Phlebitis and thrombophlebitis of superficial vessels of right lower extremity (principal)
CPT/HCPCS: 93971; G0463

== ENCOUNTER 2024-03-21 07:57 | Outpatient (OUT) | payer MEDICARE, OTHER, SELFPAY ==
--- NOTE | 2024-03-20 09:02 | V.VEINS.HP ---
Vital Signs 03/21/24 08:00 BP Location Left Brachial BP Position Sitting BP Cuff Size Adult BP Source Manual Cuff Respiration 18 Pulse 78 Pulse Source Monitor Pulse Oximetry (%) 98 Oxygen Delivery Method Room Air Varicose Veins Patient in this day for Varithena/microfoam chemical ablation right leg. Ari Acevedo MD personally performed the services described in this documentation, as scribed by Tamy Negrete RN in my presence and it is both accurate and complete. Tamy Acevedo RN, am scribing for, and in the presence of, Dr. Ari Wilson and in the presence of the patient. thigh: bilateral, knee: bilateral, calf: bilateral and ankle: bilateral aching, burning, sharp and other (itching) 10 2 years Worsened in recent months: Yes standing and sitting analgesics, elevating extremities and compression stockings Reports erythema, firmness, heaviness, limb pain, edema, leg edema and other (cellulitis, ulcer) History of lower extremity trauma: No Superficial thrombophlebitis: Yes Family history of varicose veins: no Has patient had previous lower extremity venous surgery: No Patient has previously received the following treatment(s) for lower extremity varicose veins: Reports none Does patient have a history of : not applicable Does patient intend to have future pregnancies: not applicable Has patient had lower extremity venous scan with relux testing: Yes Support hose used: Yes Problems walking or doing physical activity: Yes How does it affect you: unable to stand for periods of time Do you walk much: Yes Do you stand much: Yes Medication compliance: good Large amounts of Vitamin K: No Review of Systems ROS Narrative Ari Acevedo MD personally performed the services described in this documentation, as scribed by Tamy Negerte RN in my presence and it is both accurate and complete. Tamy Acevedo RN, am scribing for, and in the presence of, Dr. Ari Wilson and in the presence of the patient. Status of ROS 10 or more systems reviewed and unremarkable except as noted in history and below Cardiovascular Reports: edema and swelling of feet/ankles Musculoskeletal Reports: extremity pain, extremity swelling, joint pain, joint swelling, muscle cramps and muscle weakness Integumentary/Breast Reports: itching, redness, skin pain, skin tenderness, skin swelling, sores (right distal medial), non-healing lesion (right distal medial) and changes in skin color (hemosiderin staining) Hematologic/Lymphatic Reports: easy bruising PFSH [facility] Medical History (Updated 08/20/23 @ 08:45 by Esther Sy) Phlebitis and thrombophlebitis of superficial vessels of right lower extremity ?I80.01 - Phlebitis and thrombophlebitis of superficial vessels of right lower extremity (ICD-10) Phlebitis and thrombophlebitis of superficial vessels of left lower extremity ?I80.02 - Phlebitis and thrombophlebitis of superficial vessels of left lower extremity (ICD-10) Varicose veins of bilateral lower extremities with pain ?I83.813 - Varicose veins of bilateral lower extremities with pain (ICD-10) Hernia ?K46.9 - Unspecified abdominal hernia without obstruction or gangrene (ICD-10) Abscess ?L02.91 - Cutaneous abscess, unspecified (ICD-10) Cellulitis ?L03.90 - Cellulitis, unspecified (ICD-10) Kidney stone ?N20.0 - Calculus of kidney (ICD-10) Hypertension ?I10 - Essential (primary) hypertension (ICD-10) Gout ?M10.9 - Gout, unspecified (ICD-10) Surgical History (Updated 08/20/23 @ 08:45 by Esther Sy) Status post ablation of incompetent vein using laser ?Z98.890 - Other specified postprocedural states (ICD-10) History of hernia repair ?Z98.890 - Other specified postprocedural states (ICD-10) ?Z87.19 - Personal history of other diseases of the digestive system (ICD-10) Family History (Updated 08/20/23 @ 08:48 by Esther Sy) Father Family history of cancer Family history of diabetes mellitus Mother Family history of hypertension Social History (Updated 08/20/23 @ 08:49 by Esther Sy) Within the past year, how often did you have a drink containing alcohol: monthly or less Smoking status: Former smoker What tobacco products do you use: cigarettes Packs per day: 0.5 Years smoked: 20 Smoking pack-years: 10.00 Smoking quit date/years: >15 years ago Non-prescribed substance use: denies use Meds Home Medications and Allergies Home Medications ?Medication ?Instructions ?Recorded ?Confirmed ?Type Lactobacillus acidophilus 10 100 mmu cells PO DAILY 08/20/23 08/20/23 History billion cell capsule (Probacap) allopurinol 200 mg tablet 200 mg PO DAILY 08/20/23 08/20/23 History amlodipine 5 mg tablet 5 mg PO DAILY 08/20/23 08/20/23 History linezolid 600 mg tablet 600 mg PO BID 08/20/23 08/20/23 History Allergies Allergy/AdvReac Type Severity Reaction Status Date / Time aspirin Allergy Unknown Verified 08/10/23 17:07 Exam Narrative Exam Narrative: Ari Acevedo MD personally performed the services described in this documentation, as scribed by Tamy Negrete RN in my presence and it is both accurate and complete. Tamy Acevedo RN, am scribing for, and in the presence of, Dr. Ari Wilson and in the presence of the patient. Constitutional Documenting provider has reviewed patient's vital signs: yes Common normals: oriented x3 General appearance: cooperative Lymph Lymphatic: no lymphedema noted Chest Common normals: inspection of chest normal Respiratory Common normals: normal respiratory effort Cardio Rate: regular rate Rhythm: regular rhythm Peripheral pulses: posterior tibial pulses present and dorsalis pedis pulses present GI Common normals: Normal to inspection, nondistended, normoactive bowel sounds present Extremity General: calf tenderness (right lower leg tenderness and numbness), edema (Right lower extremity edema significantly improved) and other findings (Non-healing ulcer right distal medial lower leg) Right lower extremity: lower leg Right lower leg: inspection Left lower extremity: lower leg Left lower leg: inspection Neuro Common normals: oriented x3 Assessment and Plan Assessment and Plan (1) Varicose veins of bilateral lower extremities with pain: Plan The patient tolerated the procedure well without complication.? The patient verbalizes understanding and states they will comply.? Patient was given post-procedure instructions. Patient was discharged in good condition.? Scheduled to undergo follow-up evaluation on 03/24/24. Ari Acevedo MD personally performed the services described in this documentation, as scribed by Tamy Negrete RN in my presence and it is both accurate and complete. Tamy Acevedo RN, am scribing for, and in the presence of, Dr. Ari Wilson and in the presence of the patient. Procedures Procedure Instructions Procedures leg microfoam chemical ablation/Varithena: Risks and benefits of the procedure were discussed at length and informed written consent was obtained.? Time-out procedure was performed and the correct patient and procedure were confirmed.? Staff present during time-out: Tamy Negrete RN, Esther Sy RDMS, and Ari Wilson MD.? Patient prepped and procedure performed in usual sterile fashion.? Patient was placed in Trendelenburg prior to Polidocanol/Varithena injections. Sclerosing Agent:?? 4cc 1% Polidocanol/Varithena Site Injected: right leg Number of Injections:? 6cc into 4mm vein right distal medial lower leg 5cc into 6mm vein right distal medial thigh 4cc into 4mm vein right mid lateral lower leg The patient tolerated the procedure well without complication.? Hemostasis was obtained and thigh-high compression stocking was applied with foam pads.? Instructed patient to wear stocking for at least 96 hours and sleep with it and only remove for showering.? The patient was instructed to? wear stocking for 2 weeks.? Patient verbalizes understanding and states they will comply.? Patient was given post-procedure instructions. Patient was discharged in good condition.? Scheduled to undergo limited venous ultrasound and? exam on 03/24/24. IAri MD personally performed the services described in this documentation, as scribed by Tamy Negrete RN in my presence and it is both accurate and complete. ITamy RN, am scribing for, and in the presence of, Dr. Ari Wilson and in the presence of the patient.
--- NOTE | 2024-03-20 09:04 | P.DS_ITS ---
Discharge Plan Discharge Disposition: Home, Self-Care Outpatient Diagnostics: VC Facility EST LMTD (Routine) Timeframe: 2 Weeks Facility: [facility] - Location: [facility] Center Ordered By: Ari Wilson VC EXT Venous RT LMTD (Routine) Timeframe: 2 Weeks Facility: [facility] - Location: [facility] Center Ordered By: Ari Wilson Follow Up Appointments: 03/24/24 Plan of Treatment: u/s follow up following varithena right leg 03/21/24. Patient Instructions: Polidocanol (By injection) (Asclera, Marlenithena) Print Language: Mohawk Discharge Date/Time: 03/21/24 08:59
[2024-03-21 08:00] VITALS: PULSE 78; O2SAT 98
--- OUTSIDE RECORDS SUMMARY | 2024-03-21 08:03 | XMS_ITS | CCD ---
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 Name Role Phone NONE, XXXX Primary Care Physician Unavailab trena Figueroa MD, Michelle Barlow Primary Care Provider Michelle Figueroa MD Unavailable [phone] Michelle Figueroa Primary Care Physician [phone] DO Jose Manuel Figueroa Attending Unavailable Elvira WALLER Attending Unavailable Dwight Eddy Admitting Unavailable Dolce, Jhonatan Richardson Consulting Unavailable Dolce, JULIETH Richardson Consulting Unavailable Dolce, Jhonatan D Consulting [...] Unavailable Blank, Jean Marie S Consulting Unavailable Michelle Figueroa Attending Unavailable Michelle Figueroa Admitting Unavailable Taras BURDICK Attending Unavailable Taras BURDICK Admitting Unavailable Dolce, Jhonatan Richardson Referring Unavailable Dolce, Jhonatan Richardson Attending Unavailable Dolelsie, Jhonatan Richardson Admitting Unavailable Arnel Modi Attending Unavailable Taras BURDICK Attending Unavailable Michelle Figueroa Admitting Unavailable Michelle Figueroa Attending Unavailable Taras BURDICK Attending Unavailable Taras BURDICK Admitting Unavailable Taras BURDICK Attending Unavailable MICHELLE FIGUEROA Attending Unavailable DEIDRA MONTOYA Attending Unavailable MICHELLE FIGUEROA Referring Unavailable POCOS, CYNTHIA Parrish Referring Unavailable POCOS, CYNTHIA Parrish Referring Unavailable POCOS, CYNTHIA Parrish Attending Unavailable FIGUEROAMICHELLE Referring Unavailable TIMMIGERALD Meier Attending Unavailable SHERIE HOUGH Attending Unavailable POCOS, CYNTHIA Parrish Referring Unavailable HOUGHSHERIE Attending Unavailable POCOS, CYNTHIA Parrish Referring Unavailable BROWN, ENRIQUETA Parrish Attending Unavailable SHEILA, ENRIQUETA Parrish Referring Unavailable SHERIE HOUGH Attending [...] Attending Unavailable FIGUEROA, MICHELLE Barlow Attending Unavailable MAEGAN, DESTINEE Ortiz Attending Unavailable MAEGAN, DESTINEE Ortiz Referring Unavailable FIGUEROA, MICHELLE Barlow Attending Unavailable Allergies Allergy Classification Reported Allergen(s) Allergy Type Date of Onset Reaction(s) Facility Aspirin (1 source) Aspirin; Translations: [aspirin] Drug Allergy [facility] Repository (10 sources) Aspirin; Translations: [aspirin] Drug Allergy Unknown (qualifier value) [facility] (13 sources) Aluminum aspirin Drug Allergy 3 Hives [...] 0 Start Date: 07/06/23 Status: Ordered allopurinol 100 mg oral tablet (20 sources) Xanthine Oxidase Inhibitor Start: 07-25-2023 take 200 mg by mouth once daily Allopurinol Active 200 MG PO Daily July 25, 2023 12:00am Start: 11-26-2019 End: 09-12-2024 take 2 tablets by mouth once daily allopurinol (Zyloprim) 100 MG tablet Indications: Gout, unspecified cause, unspecified chronicity, unspecified site Take 2 tablets (200 mg) by mouth Daily 180 tablet 3 09/13/2023 09/12/2024 Active allopurinol (Zyl oprim) 100 MG tablet 1 (one) time each day at the same time. 0 Active amLODIPine 5 mg oral tablet (20 sources) Dihydropyridine Calcium Channel Andres Start: 02-09-2023 End: 09-12-2024 take 1 tablet by mouth once daily amLODIPine (Norvasc) 5 MG tablet Indications: Essential hypertension (CMS/HCC) Take 1 tablet (5 mg) by mouth Daily 90 tablet 3 09/13/2023 09/12/2024 Active Centrum Silver (3 sources) Start: 08-03-2015 Centrum Silver Refill(s) 0, Prophylaxis Start Date: 08/03/15 Status: Ordered furosemide 40 mg oral tablet (3 sources) Loop Diuretic Start: 11-26-2019 furosemide 40 mg Tab 40 mg = 1 tab(s), Oral, As Directed, prn swelling, Refills(s) 0 Start Date: 11/26/19 Status: Ordered hydroCHLOROthiazide 25 mg oral tablet (15 sources) Thiazide Diuretic Start: 09-12-2023 take 1 tablet by mouth once daily hydroCHLOROthiazide (HYDRODiuril) 25 MG tablet Indications: Essential hypertension (CMS/HCC) Take 1 tablet (25 mg) by mouth Daily 100 tablet 3 09/13/2023 Active Start: 07-19-2022 take 1 tablet by kirby th in the morning hydroCHLOROthiazide (HYDRODiuril) 25 MG tablet Indications: Benign essential HTN (CMS/HCC) Take 1 tablet (25 mg) by mouth in the morning. 90 tablet 2 07/19/2022 Active Lactobacillus acidophilus (4 sources) Start: 07-25-2023 take 1 tablet by mouth once daily Lactobacillus Acidophilus (Acidophilus) tablet,chewable Active 1 TAB PO Daily July 25, 2023 12:00am lisinopril 40 mg oral tablet (20 sources) Angiotensin Converting Enzyme Inhibitor Start: 07-06-2023 take 1 tablet by mouth once daily lisinopril 40 MG tablet Indications: Essential hypertension (CMS/HCC) Take 1 tablet (40 mg) by mouth Daily 100 tablet 09/13/2023 Active Start: 11-26-2019 take 2 tablets by mo uth once daily lisinopril 20 mg Tab 40 [...] 30 tablet 2 03/21/2023 04/20/2023 Active omeprazole 40 mg delayed release oral capsule (20 sources) Proton Pump Inhibitor Start: 09-13-2023 End: 09-12-2024 take 1 capsule by mouth once daily omeprazole (PriLOSEC) [address] capsule Indications: Gastroesophageal reflux disease without esophagitis Take 1 capsule (40 mg) by mouth 1 (one) time each day at the same time 90 capsule 3 09/13/2023 09/12/2024 Active Start: 07-06-2023 take 20 mg by mouth [...] tablet 0 03/13/2023 03/21/2023 Discontinued (Therapy completed) saccharomyces boulardii 250 mg oral capsule (6 sources) take 1 capsule by mouth in the morning saccharomyces boulardii (Florastor) 250 MG capsule Take 250 mg by mouth in the morning and 250 mg before bedtime. Active triamcinolone acetonide 5 mg/ml topical cream (4 sources) Corticosteroid Start: Triamcinolone Acetonide Active 1 APPLIC TOPICAL Twice daily July 25, 2023 12:00am Completed/Discontinued Medications Medication Drug Class(es) Dates Sig (Normalized) Sig (Original) linezolid 600 mg oral tablet (3 sources) Oxazolidinone Antibacterial Start: 10-08-2023 End: 11-01-2023 take 600 mg by mouth twice daily Linezolid Discontinued 600 MG PO Twice daily October 08, 2023 12:00am November 01, 2023 3:26pm Start: 07-10-2023 End: 07-24-2023 take 1 tablet by mouth every twelve hours Zyvox 600 mg Tab 600 mg = 1 tab(s), Oral, q12hr, X 14 day(s), # 28 tab(s), Refills(s) 0, Pharmacy: [facility], 185.4, cm, 07/06/23 12:13:00 EDT, Height/Length Dosing, 109.4, kg, 07/06/23 12:13:00 EDT, Weight Dosing Start Date: 07/10/23 Stop Date: 07/24/23 Status: Ordered methylPREDNISolone (5 sources) Corticosteroid Start: 12-24-2023 End: 02-28-2024 methylPREDNISolone (Medrol Dospak) 4 MG tablets Indications: Non-recurrent acute serous otitis media of right ear Follow schedule on package instructions 21 tablet 12/24/2023 02/28/2024 Discontinued (Therapy completed) Start: 12-24-2023 methylPREDNISo lone (Medrol Dospak) 4 MG tablets Indications: Non-recurrent acute serous otitis media of right ear Follow schedule on package instructions 21 tablet 12/24/2023 Active Problems Active Problems Problem Classification Problem Date Documented Date Episodic/Chronic Acute and unspecified renal failure (3 sources) Acute renal failure syndrome; Translations: [Acute kidney failure, unspecified] Onset: 07-06-2023 Episodic Allergic reactions (7 sources) Allergic contact dermatitis caused by plant material; Translations: [Allergic contact dermatitis due to plants, except food] Onset: 12-24-2023 12-24-2023 Episodic Calculus of urinary tract (20 sources) Kidney stone; Translations: [Calculus of kidney] Onset: 11-21-2021 10-04-2018 Episodic Chronic kidney disease (2 sources) Chronic kidney disease stage 3A ; Translations: [Chronic kidney disease, stage 3a (HCC) (CMS/HCC)] 02-28-2024 Chronic Esophageal disorders (13 sources) Gastroesophageal reflux disease without esophagitis; Translations: [Gastro-esophageal reflux disease without esophagitis] Onset: 08-04-2022 08-04-2022 Chronic Essential hypertension (20 sources) Hypertensive disorder; Translations: [Essential hypertension] Onset: 08-04-2022 09-05-2009 Chronic Gout and other crystal arthropathies (8 sources) Gout 08-01-2015 Chronic Hyperplasia of prostate (20 sources) Benign prostatic hypertrophy with outflow obstruction; Translations: [Benign prostatic hyperplasia with lower urinary tract symptoms] Onset: 11-21-2021 10-04-2018 Chronic Open wounds of extremities (1 source) Open wound of right ankle; Translations: [Unspecified open wound, right ankle, initial encounter] Onset: 07-09-2023 Episodic Other diseases of kidney and ureters (4 sources) Urinary tract obstruction; Translations: [Other obstructive and reflux uropathy] Onset: 11-15-2021 Episodic Other diseases of veins and lymphatics (2 sources) Peripheral venous insufficiency; Translations: [Venous insufficiency (chronic) (peripheral)] 08-15-2023 Episodic Other diseases of veins and lymphatics (2 sources) Venous insufficiency (chronic) (peripheral); Translations: [Venous (peripheral) insufficiency, unspecified] 08-15-2023 Episodic Other ear and sense organ disorders (2 sources) Sensorineural hearing loss, bilateral; Translations: [Sensorineural hearing loss, bilateral] 04-02-2023 Chronic Other nervous system disorders (13 sources) Chronic pain; Translations: [Other chronic pain] Onset: 08-04-2022 08-04-2022 Chronic Other non-traumatic joint disorders (4 sources) Enthesopathy of hip region; Translations: [Other specified joint disorders, left hip] 03-21-2023 Episodic Other nutritional; endocrine; and metabolic disorders (1 source) Obesity; Translations: [Obesity, unspecified] Onset: 07-09-2023 Chronic Other screening for suspected conditions (not mental disorders or infectious disease) (2 sources) Raised prostate specific antigen; Translations: [Elevated prostate specific antigen [PSA]] Onset: 09-12-2023 Episodic Otitis media and related conditions (2 sources) Acute non-suppurative otitis media - serous; Translations: [Acute serous otitis media, right ear] 12-24-2023 Episodic Skin and subcutaneous tissue infections (10 sources) Cellulitis of lower limb; Translations: [Cellulitis of right lower limb] Onset: 07-06-2023 Episodic Spondylosis; intervertebral disc disorders; other back problems (18 sources) Lumbar spondylosis; Translations: [Spondylosis without myelopathy or radiculopathy, lumbar region] Onset: 04-13-2023 03-21-2023 Chronic Unclassified (8 sources) Asymptomatic microscopic hematuria 11-26-2019 Past or Other Problems Problem Classification Problem Date Documented Da te Episodic/Chronic Genitourinary symptoms and ill-defined conditions (15 sources) Microscopic hematuria; Translations: [Asymptomatic microscopic hematuria] Onset: 11-21-2021 Episodic Other connective tissue disease (8 sources) Bilateral trochanteric bursitis; Translations: [Trochanteric bursitis, right hip] Onset: 04-13-2023 03-21-2023 Episodic Other ear and sense organ disorders (10 sources) Bilateral tinnitus; Translations: [Tinnitus, bilateral] Onset: 04-02-2023 04-02-2023 Episodic Other non-traumatic joint disorders (10 sources) Hip pain; Translations: [Pain in right hip] Onset: 04-13-2023 03-21-2023 Episodic Results Test Name Value Interpretation Reference [...] Unchanged. Likely vascular calcification Ordering Provider: Taras BURDICK FINAL REPORT Dictated: 09/05/2023 2:02 pm Pilo Mo Signed (Electronic Signature): 09/05/2023 2:02 pm Signed by: Pilo Mo Transcribed by: LALY Technologist: PERI Technical Comments Radiation Dose: angela Godinez in mGy = . DAP = . Normal [facility] CHEMISTRYOrdered By: SYSTEM SYSTEM on 09-04-2023 [...] for this result was chemiluminescence using [employer]'s Access Hybritech PSA reagent. Protein [Mass/Vol] 6.9 g/dL Normal 6.0 - 7.8 gm/dL Remisol Chem Sodium [Moles/Vol] 141 mmol/L Normal 135 - 145 mmol/L Remisol Chem Urea nitrogen [Mass/Vol] 23 mg/dL High 5 - 21 mg/dL Remisol Chem Urea nitrogen/Creatinine [Mass ratio] 15 mg/mg Normal 10 - 20 Remisol Chem CMPon 09-04-2023 Albumin [Mass/Vol] 4.0 g/dL Normal 3.3-5.0 [facility] Comment on above: Performed By: #### 2 [id number] #### [facility] [address] [place] [address] Albumin/Globulin (S) [Mass conc ratio] 1.4 Normal 1.1-2.2 [facility] Comment on above: Performed By: #### 2 [id number] #### [facility] [address] [place] [address] ALP [Catalytic activity/Vol] 94 Int._Unit/L Normal 21-98 [facility] Comment on above: Performed By: #### 2 [id number] #### [facility] [address] [place] [address] ALT No additional P-5'-P [Catalytic activity/Vol] 16 Int._Unit/L Normal 6-46 [facility] Comment on above: Performed By: #### 2 [id number] #### [facility] [address] [place] [address] Anion gap [Moles/Vol] 11 mmol/L Normal 6-16 [facility] Comment on above: Performed By: #### 2 [id number] #### [facility] [address] [place] [address] AST [Catalytic activity/Vol] 15 Int._Unit/L Normal 5-43 [facility] Comment on above: Performed By: #### 2 [id number] #### [facility] [address] [place] [address] Bilirubin [Mass/Vol] 0.4 mg/dL Normal 0.0-1.1 [facility] Comment on above: Performed By: #### 2 [id number] #### [facility] [address] [place] [address] Calcium [Mass/Vol] 9.5 mg/dL Normal 8.9-11.1 [facility] Comment on above: Performed By: #### 2 [id number] #### [facility] [address] [place] [address] Chloride [Moles/Vol] 110 mmol/L Normal 101-111 [facility] Comment on above: Performed By: #### 2 [id number] #### [facility] [address] [place] [address] CO2 [Moles/Vol] 25 mmol/L Normal 21-31 [facility] Comment on above: Performed By: #### 2 [id number] #### [facility] [address] [place] [address] Creatinine [Mass/Vol] 1.5 mg/dL High 0.5-1.3 [facility] Comment on above: Performed By: #### 2 [id number] #### [facility] [address] [place] [address] Globulin (S) [Mass/Vol] 2.9 g/dL Normal 1.4-4.0 [facility] Comment on above: Performed By: #### 2 [id number] #### [facility] [address] [place] [address] Glucose [Mass/Vol] 108 mg/dL Normal 55-199 [facility] Comment on above: Performed By: #### 2 [id number] #### [facility] [address] [place] [address] Potassium [Moles/Vol] 4.6 mmol/L Normal 3.5-5.3 [facility] Comment on above: Performed By: #### 2 [id number] #### [facility] [address] [place] [address] Protein [Mass/Vol] 6.9 g/dL Normal 6.0-7.8 [facility] Comment on above: Performed By: #### 2 [id number] #### [facility] [address] [place] [address] Sodium [Moles/Vol] 141 mmol/L Normal 135-145 [facility] Comment on above: Performed By: #### 2 [id number] #### [facility] [address] [place] [address] Urea nitrogen [Mass/Vol] 23 mg/dL High 5-21 [facility] Comment on above: Performed By: #### 2 [id number] #### [facility] [address] [place] [address] Urea nitrogen/Creatinine [Mass ratio] 15 No Units Normal 10-20 [facility] Comment on above: Performed By: #### 2 [id number] #### [facility] [address] [place] [address] PSA Totalon 09-04-2023 Prostate specific Ag [Mass/Vol] 1.3 ng/mL Normal 0.1-3.5 [facility] Comment on above: Result Comment: The concentration of PSA determined by different manufacturers can vary due to differences in assay methods and reagent specificity. Values obtained from different assay methods cannot be used interchangeably. The methodology used for this result was chemiluminescence using [employer]'s [employer] Hybritech PSA reagent. Performed By: #### 1 [id number] #### [facility] [address] [place] [address] eGFRon 09-04-2023 eGFR 51 mL/min/1.73 m2 Low >=59 [facility] Comment on above: Order Comment: Order added by Discern Expert. Performed By: #### 1 [id number] #### [facility] [address] [place] [address] Referrals Officeon 4 Referrals Office [id number] TIFF Normal [facility] General Message Officeon General Message Office --- --- --- --- - -- --- --- --- --- From: Archie Hilton To: JEAN MARIE MAST SR Sent: 07/11/23 02:31:06 AM EDT Subject: Discharge Summary Ready to View A summary regarding your recent visit is available in the Documents section of your health record. Normal [facility] Consultation Noteon 07-10-19 Consultation Note Patient: [...] Problems Asymptomatic microscopic hematuria / SNOMED CT 0524236240 / Confirmed BPH with urinary obstruction / SNOMED CT 3257831986 / Confirmed kidney stones / SNOMED CT 900547179 / Confirmed Histories Past Medical History: Active kidney stones (450459837) Resolved HTN - Hypertension (5838380097): Resolved. Gout (985494472): Resolved. Family History: Kidney stone Mother Hypertension Mother Diabetes mellitus type 2 Father Procedure history: Cysto, left ureteral stent removal, left RGP, left ureteronephroscopy with Holmium laser ablation, multiple basket extraction of stone,fragments, replacement of JJ ureteral stent under fluoroscopic guidance. on 09/08/2015 at 60 Years. Cystoscopy (34377768) on 08/04/2015 at 60 Years. Comments: 08/04/2015 17:56 EDT - Maurice ALMAGUER, Marilyn Left Stent Insertion Abdominal hernia (553108830). Physical Examination Vital Signs 07/10/2023 12:01 EDT [...] or not further antibiotics are needed.. Normal [facility] Comment on above: Result Comment: Elec tronically Signed By: Jean Marie Mccullough M.D\.br\Date and Time Signed: 07/10/23 14:43 EDT Discharge Instructionson Discharge Instructions [id number] TIFF Normal [facility] Discharge Note-Nursingon Discharge Note-Nursing JEAN MARIE MAST SR, DOB:1955 Visit Date:07/06/2023 Inpatient Discharge Instructions Your Care Team Admitting Physician - Dwight Eddy DO Consulting Physician - Jean Marie Mccullough M.D DPM, Jhonatan [place] MD, [facility]. Reason for Your Visit pt [...] Test Results Wound culture Pharmacy Information [facility] Previously Scheduled Follow-Up Appointments Sunday 3:30 PM EDT With: JAMESON SUH, Taras Duncan Where: [facility] Inpatient Clinical Summaryon 07-10-2023 Inpatient Clinical Summary [place] [address] Clinical Summary Person Information: Name: JEAN MARIE MAST SR Age: 68 Years : 1955 Sex: Male PCP: Michelle Figueroa MD Marital Status: Race: White Ethnicity: Non- or Language: [place] Visit Id: Visit Reason: Cellulitis - Leg; Lower leg pain-swelling; SENT BY DR MARISCAL, LEG PAIN Speciality: Acuity: Enc Type: Inpatient Med Service: Medical Arrival: 07/06/2023 12:00:42 Discharge: Dispo Type: Admitted as IP to this Hosp Address: [address] [place] [address] [facility] [address] Provider Notes: Diagnosis: 1:Cellulitis of right leg; [...] Dwight Eddy DO Consulting Physician: Aleksandr SUH, Jhonatan Pelletier DPM; Sadia Shannon, Jean Marie Meier Referring Physician: Follow up: With: Address: When: Dixie [place] [address] [place] [address] Business (1) Within 1 to 2 weeks Comments: Call for followup appointment With: Address: When: Jean Marie Mccullough [address] [place] [address] Business (1) 07/23/2023 1:45 PM With: Address: When: Michelle Figueroa [address] [place] [address] Business (1) 07/17/2023 10:00 AM With: Address: When: Jhonatan [facility]ULLER [facility] [address], [place] [address] 07/11/2023 8:20 AM Type Location Start [facility] URO Office Visit [facility] 09/12/2023 3:30 PM 09/12/2023 3:45 PM Confirmed Patient Education Information: Cellulitis, Adult, [id number] Normal [facility] Inpatient Patient Summaryon 07-10-2023 Inpatient Patient Summary [address] [address] Patient Discharge Instructions PERSON INFORMATION [...] up: With: Address: When: Dixie [address] [place] [address] Business (1) Within 1 to 2 weeks Comments: Call for followup appointment With: Address: When: Jean Marie Mccullough [address] [place] [address] Business (1) 07/23/2023 1:45 PM With: Address: When: Michelle Figueroa [address] [place] [address] Business (1) 07/17/2023 10:00 AM With: Address: When: Jhonatan MULLER - [facility], [facility], [address], [place] [address] 07/11/2023 8:20 AM In the event that this physician does not participate in your insurance network, please consult with your insurance company to find a nearby participating provider. Type Location Start Finish State URO Office Visit [facility] [place] 09/12/2023 3:30 PM 09/12/2023 3:45 PM Confirmed Comment: PRO Acevedo SR, MICHAEL, have received the attached patient education materials/instructions and have verbalized understanding: Patient Signature Date Clinican/Nurse Signature _ Date HERE ARE THE MEDICATION CHANGES THAT OCCURRED DURING YOUR HOSPITAL STAY New Medications [facility] 1985, [address] [facility] [place], [place] [id number], [phone] linezolid (Zyvox 600 mg Tab) 1 Tablets [...] is very import (more content not included)... [facility] Interdisciplinary Note - Justin e Manageron 07-10-2023 Interdisciplinary Note - Ship Purser Pt is asleep in bed, no family [...] on Linzolid cost checked at pt preferred [facility], with his insurance was over $400, but with good rx will be down to $51.50 and they have in stock currently. Pt updated on cost and pt is ok with cost. Nursing updated on DC plan [facility] Comment on above: Result Comment: Elec tronically Signed By: Chasidy ALMAGUER, Alaina\.joelle\Date and Time Signed: 07/10/23 15:15 EDT Monitor Recordon 07-10-2023 Monitor Record [id number]#1.00 TIFF [facility] Monitor Record [id number]#1.00 TIFF [facility] Progress Note-Physicianon Progress Note-Physician Assessment/Plan 68-year-old [...] with IV Invanz and vancomycin. Seen by director of graduate medical education and had a bedside incision and drainage of blister/bullae. Status post wound dressing. MRI does not show any deep tissue abscess of bone involvement/osteomyelit is. Infectious disease consult pending. Vascular surgery consult?can be done as outpatient. Ordered: [facility] Care/Day Moderate 35 Minutes 84151 2. Wound of right ankle (S91.001A: Unspecified open wound, right ankle, initial encounter) Continue wound dressings. Wound cultures so far not isolating any organisms. Ordered: [facility] Care/Day Moderate 35 Minutes 17123 Wound Culture 3. Acute kidney injury (N17.9: Acute kidney failure, unspecified) Acute kidney injury?secondary to ATN from above infection, diuretics and lisinopril. Improved. Lisinopril and hydrochlorothiazide suspended. Treated with IV fluid. Ordered: [facility] Care/Day Moderate 35 Minutes 42469 4. Obese (E66.9: Obesity, unspecified) Recommend therapeutic lifestyle modification changes. Ordered: [facility] Care/Day Moderate 35 Minutes 39710 5. HTN (hypertension) (I10: Essential (primary) hypertension) [...] made to ensure accuracy. However inadvertent computerized retail assistant store manager errors may be present. Elvira Waller. [...] stones Histori (more content not included)... Normal [facility] Comment on above: Result Comment: Elec tronically Signed By: AYANNA SUH, Elvira\.br\Date and Time Signed: 07/10/23 12:09 EDT BMPon 07-09-2023 Anion gap [Moles/Vol] 8 mmol/L Normal 6-16 [facility] Comment on above: Performed By: #### 2 [id number] #### [facility] [address] [place] [address] Calcium [Mass/Vol] 8.2 mg/dL Low 8.9-11.1 [facility] Comment on above: Performed By: #### 2 [id number] #### [facility] [address] [place] [address] Chloride [Moles/Vol] 108 mmol/L Normal 101-111 [facility] Comment on above: Performed By: #### 2 [id number] #### [facility] [address] [place] [address] CO2 [Moles/Vol] 27 mmol/L Normal 21-31 [facility] Comment on above: Performed By: #### 2 [id number] #### [facility] [address] [place] [address] Creatinine [Mass/Vol] 1.4 mg/dL High 0.5-1.3 [facility] Comment on above: Performed By: #### 2 099222 #### [facility] [address] [facility] [address] Glucose [Mass/Vol] 109 mg/dL Normal 55-199 [facility] Comment on above: Performed By: #### 2 055313 #### [facility] [address] [place] [address] Potassium [Moles/Vol] 3.8 mmol/L Normal 3.5-5.3 [facility] Comment on above: Performed By: #### 2 129979 #### [facility] [address] [place] [address] Sodium [Moles/Vol] 139 mmol/L Normal 135-145 [facility] Comment on above: Performed By: #### 2 464916 #### [facility] [address] [place] [address] Urea nitrogen [Mass/Vol] 16 mg/dL Normal 5-21 [facility] Comment on above: Performed By: #### 2 362353 #### [facility] [address] [place] [address] Urea nitrogen/Creatinine [Mass ratio] 11 No Units Normal 10-20 [facility] Comment on above: Performed By: #### 2 578862 #### [facility] [address] [place] [address] CHEMISTRYOrdered By: SYSTEM SYSTEM on 07-09-2023 Vanco [...] Justin e Manageron 07-09-2023 Interdisciplinary Note - Ship Purser Pt is out of room for MRI [...] information reviewed. CRM following for needs. Normal [facility] Comment on above: Result Comment: Elec [...] Vueway Contrast amount in ml's: 10 Normal [facility] MRI Tibia/Fibula w/ + w/o Co [...] osteomyelitis, or marrow replacing process. Joint: Large prlqm-jt-tixz imaging of the knee with degenerative changes with subchondral cystic change, probable tearing of the medial lateral meniscus, probable tearing of ACL, but overall not well evaluated on the large iiwyr-gj-suex. Muscle: Mild diffuse fatty infiltration of the [...] tendons grossly intact within limits of large jbdli-zv-bkls. Small amount of increased fluid at the [...] Vueway Contrast amount in ml's: 10 Normal [facility] Message from Medicareon 06-20 Message from Medicare [id number]#1.00T IFF Normal [facility] Message from Medicare [id number]#1.00T IFF Normal [facility] Monitor Recordon 07-09-2023 Monitor Record [id number]#1.00 TIFF Normal [facility] Monitor Record [id number]#1.00 TIFF Normal [facility] Monitor Record [id number]#1.00 TIFF Normal [facility] Monitor Record [id number]#1.00 TIFF Normal [facility] No Panel InformationOrdered By: Maty Felix on 07-09-2023 GS No organisms seen. [facility] Wound Culture Scant growth of Staphylococcus species coagulase negative [facility] Progress Note - Pharmacyon 0 07-09-2023 Progress [...] questions, please contact the pharmacy at extension [phone]. Age: 68 Years Allergies: aspirin Weight: Last [...] Vanco Pk: 27 mcg/mL (07/08/23 17:11:00) Normal [facility] Progress Note-Physicianon Progress Note-Physician Patient: JEAN [...] Problems Asymptomatic microscopic hematuria / SNOMED CT 5731995076 / Confirmed BPH with urinary obstruction / SNOMED CT 8211144304 / Confirmed kidney stones / SNOMED CT 656274460 / Confirmed, Active Problems (3) Asymptomatic microscopic [...] Right tibia (more content not included)... Normal [facility] Comment on above: Result Comment: Elec [...] Infuse over 30 minute(s), 07/09/23 12:12:00 EDT [facility] Hospital Care/Day Moderate 35 Minutes 76344 2. Wound of right ankle (S91.001A: Unspecified open wound, right ankle, initial encounter) Present during this admission. Wound culture. MRI of the foot pending. Ordered: ertapenem + Sodium Chloride 0.9% intravenous solution 50 mL, 500 mg = 0.5 EA, IV Piggyback, Daily, Routine, Start date 07/10/23 9:00:00 EDT, 100 mL/hr, Infuse over 30 minute(s), 07/09/23 12:12:00 EDT [facility] Hospital Care/Day Moderate 35 Minutes 66418 Wound Culture 3. Acute kidney injury (N17.9: Acute kidney failure, unspecified) Acute kidney injury?secondary to ATN from above infection, diuretic and lisinopril. Improved. Avoid nephrotoxic drugs. Lisinopril and hydrochlorothiazide suspended. Treated with IV fluid. Ordered: [facility] Hospital Care/Day Moderate 35 Minutes 08792 4. Obese (E66.9: Obesity, unspecified) Recommend therapeutic lifestyle modification changes. Ordered: [facility] Hospital Care/Day Moderate 35 Minutes 32545 5. HTN (hypertension) (I10: Essential (primary) hypertension) [...] made to ensure accuracy. However inadvertent computerized retail assistant store manager errors may be present. Elvira Waller. [...] High (05 (more content not included)... Normal [facility] Comment on above: Result Comment: Elec tronically Signed By: AYANNA SUH, Elvira\.br\Date and Time Signed: 07/09/23 12:19 EDT RAD - MRI Screening Formon 0 07-09-2023 RAD - MRI Screening Form [id number]#1.0 0TIFF Normal [facility] Vanco Troughon 07-09-2023 Vanco Tr 9 microgram/mL Low 10-20 [facility] Comment on above: Performed By: #### 2 240566 ####[facility] [address] [place] [address] eGFRon 07-09-2023 eGFR 55 mL/min/1.73 m2 Low >=59 [facility] Comment on above: Order Comment: Order added by Discern Expert. Performed By: #### 1 [id number] #### [facility] [address] [place] [address] BMPon 07-08-2023 Anion gap [Moles/Vol] 10 mmol/L Normal 6-16 [facility] Comment on above: Performed By: #### 2 441677 #### [facility] [address] [place] [address] Calcium [Mass/Vol] 8.2 mg/dL Low 8.9-11.1 [facility] Comment on above: Performed By: #### 2 185404 #### [facility] [address] [place] [address] Chloride [Moles/Vol] 107 mmol/L Normal 101-111 [facility] Comment on above: Performed By: #### 2 718329 #### [facility] [address] [place] [address] CO2 [Moles/Vol] 25 mmol/L Normal 21-31 [facility] Comment on above: Performed By: #### 2 321124 #### [facility] [address] [place] [address] Creatinine [Mass/Vol] 1.4 mg/dL High 0.5-1.3 [facility] Comment on above: Performed By: #### 2 303825 #### [facility] [address] [place] [address] Glucose [Mass/Vol] 110 mg/dL Normal 55-199 [facility] Comment on above: Performed By: #### 2 716342 #### [facility] [address] [place] [address] Potassium [Moles/Vol] 3.9 mmol/L Normal 3.5-5.3 [facility] Comment on above: Performed By: #### 2 558369 #### [facility] [address] [place] [address] Sodium [Moles/Vol] 138 mmol/L Normal 135-145 [facility] Comment on above: Performed By: #### 2 887161 #### [facility] [address] [place] [address] Urea nitrogen [Mass/Vol] 21 mg/dL Normal 5-21 [facility] Comment on above: Performed By: #### 2 334901 #### [facility] [address] [place] [address] Urea nitrogen/Creatinine [Mass ratio] 15 No Units Normal 10-20 [facility] Comment on above: Performed By: #### 2 782351 #### [facility] [address] [place] [address] CHEMISTRYOrdered By: SYSTEM SYSTEM on 07-08-2023 Vanco [...] Problems Asymptomatic microscopic hematuria / SNOMED CT 7581011870 / Confirmed BPH with urinary obstruction / SNOMED CT 7592678205 / Confirmed kidney stones / SNOMED CT 750939777 / Confirmed, Active Problems (3) Asymptomatic microscopic [...] his tib-fib (more content not included)... Normal [facility] Comment on above: Result Comment: Elec tronically Signed By: Yanira CLANCY, Jhonatan Richardson\.br\Date and Time Signed: 07/08/23 09:52 EDT Monitor Recordon 07-08-2023 Monitor Record [id number]#1.00 TIFF Normal [facility] Progress Note-Physicianon Progress Note-Physician Subjective Day [...] control as needed Last for a.m. Ordered: [facility] Hospital Care/Day Moderate 35 Minutes 14923 2. Acute kidney injury (N17.9: Acute kidney failure, unspecified) Serum creatinine down to 1.4 FENa from yesterday was 1.8; may be intrinsic and he was taking HCTZ, lisinopril and Mobic in the outpatient setting which all have been held Ordered: [facility] Hospital Care/Day Moderate 35 Minutes 03699 Orders: Basic Metabolic Panel eGFR Extra Lav [...] mg= 1 (more content not included)... Normal [facility] Comment on above: Result Comment: Elec tronically Signed By: Dwight Eddy DO\Date and Time Signed: 07/08/23 12:44 EDT Vanco Peakon 07-08-2023 Vanco Pk 27 microgram/mL Normal 20-40 [facility] Comment on above: Order Comment: pleas e draw one hour after vancomycin infusion is complete Performed By: #### 2 473931 #### [facility] [address] [place] [address] XR Foot 3+ Views Righton XR Foot [...] mGy = . DAP = . Normal [facility] XR Tib/Fib Right 2 Viewon XR [...] mGy = . DAP = . Normal [facility] eGFRon 07-08-2023 eGFR 55 mL/min/1.73 m2 Low >=59 [facility] Comment on above: Order Comment: Order added by Discern Expert. Performed By: #### 1 [id number] #### [facility] [address] [place] [address] BMPon 07-07-2023 Anion gap [Moles/Vol] 10 mmol/L Normal 6-16 [facility] Comment on above: Performed By: #### 2 965536 #### [facility] [address] [place] [address] Calcium [Mass/Vol] 8.2 mg/dL Low 8.9-11.1 [facility] Comment on above: Performed By: #### 2 873017 #### [facility] [address] [place] [address] Chloride [Moles/Vol] 106 mmol/L Normal 101-111 [facility] Comment on above: Performed By: #### 2 211497 #### [facility] [address] [place] [address] CO2 [Moles/Vol] 25 mmol/L Normal 21-31 [facility] Comment on above: Performed By: #### 2 585516 #### [facility] [address] [place] [address] Creatinine [Mass/Vol] 1.6 mg/dL High 0.5-1.3 [facility] Comment on above: Performed By: #### 2 711742 #### [facility] [address] [place] [address] Glucose [Mass/Vol] 103 mg/dL Normal 55-199 [facility] Comment on above: Performed By: #### 2 670749 #### [facility] [address] [place] [address] Potassium [Moles/Vol] 3.7 mmol/L Normal 3.5-5.3 [facility] Comment on above: Performed By: #### 2 962472 #### [facility] [address] [place] [address] Sodium [Moles/Vol] 137 mmol/L Normal 135-145 [facility] Comment on above: Performed By: #### 2 922176 #### [facility] [address] [place] [address] Urea nitrogen [Mass/Vol] 27 mg/dL High 5-21 [facility] Comment on above: Performed By: #### 2 633103 #### [facility] [address] [place] [address] Urea nitrogen/Creatinine [Mass ratio] 17 No Units Normal 10-20 [facility] Comment on above: Performed By: #### 2 787375 #### [facility] [address] [place] [address] CBC w/ Auto Diffon 4 Basophils/100 WBC (Bld) 0.5 % Normal 0.0-2.0 [facility] Comment on above: Performed By: #### 2 684608 #### [facility] [address] [place] [address] Basophils/Leukocytes Auto (Bld) [Pure # fraction] 0.0 E9/L Normal 0.0-0.2 [facility] Comment on above: Performed By: #### 2 103313 #### [facility] [address] [place] [address] Eosinophils (Bld) [#/Vol] 0.2 E9/L Normal 0.0-0.5 [facility] Comment on above: Performed By: #### 2 575460 #### [facility] [address] [place] [address] Eosinophils/100 WBC (Bld) 3.0 % Normal 0.0-8.0 [facility] Comment on above: Performed By: #### 2 638807 #### [facility] [address] [place] [address] Erythrocyte distribution width (RBC) [Ratio] 13.6 % Normal 10.9-14.2 [facility] Comment on above: Performed By: #### 2 701294 #### [facility] [address] [place] [address] Hematocrit (Bld) [Volume fraction] 40.6 % Normal 37.7-49.0 [facility] Comment on above: Performed By: #### 2 698635 #### [facility] [address] [place] [address] Hemoglobin (Bld) [Mass/Vol] 13.8 g/dL Normal 13.5-17.5 [facility] Comment on above: Performed By: #### 2 014207 #### [facility] [address] [place] [address] Lymphocytes (Bld) [#/Vol] 1.7 E9/L Normal 1.0-4.0 [facility] Comment on above: Performed By: #### 2 725828 #### [facility] [address] [place] [address] Lymphocytes/100 WBC (Bld) 20.4 % Normal 14.0-50.0 [facility] Comment on above: Performed By: #### 2 092623 #### [facility] [address] [place] [address] MCH (RBC) [Entitic mass] 32.2 pg Normal 27.0-34.0 [facility] Comment on above: Performed By: #### 2 609284 #### [facility] [address] [place] [address] MCHC (RBC) [Mass/Vol] 34.1 g/dL Normal 31.4-36.0 [facility] Comment on above: Performed By: #### 2 480378 #### [facility] [address] [place] [address] MCV (RBC) [Entitic vol] 94.5 fL Normal 80.0-100.0 [facility] Comment on above: Performed By: #### 2 550219 #### [facility] [address] [place] [address] Monocytes (Bld) [#/Vol] 0.5 E9/L Normal 0.2-1.0 [facility] Comment on above: Performed By: #### 2 650230 #### [facility] [address] [place] [address] Neutrophils (Bld) [#/Vol] 5.7 E9/L Normal 2.0-7.5 [facility] Comment on above: Performed By: #### 2 190422 #### [facility] [address] [place] [address] Neutrophils/100 WBC (Bld) 69.7 % Normal 36.0-75.0 [facility] Comment on above: Performed By: #### 2 108356 #### [facility] [address] [place] [address] Platelet mean volume (Bld) [Entitic vol] 8.6 fL Normal 6.4-10.8 [facility] Comment on above: Performed By: #### 2 445009 #### [facility] [address] [place] [address] Platelets (Bld) [#/Vol] 205.0 E9/L Normal 150.0-500.0 [facility] Comment on above: Performed By: #### 2 417119 #### [facility] [address] [place] [address] RBC (Bld) [#/Vol] 4.3 E12/L Normal 4.3-5.9 [facility] Comment on above: Performed By: #### 2 552853 #### [facility] [address] [place] [address] WBC corrected for nucl RBC Auto (Bld) [#/Vol] 8.1 E9/L Normal 4.0-11.0 [facility] Comment on above: Performed By: #### 2 239379 #### [facility] [address] [place] [address] CHEMISTRYOrdered By: SYSTEM SYSTEM on 07-07-2023 Anion [...] Monitor Recordon 07-07-2023 Monitor Record [id number]#1.00 TIFF Normal [facility] Monitor Record [id number]#1.00 TIFF Normal [facility] Monitor Record [id number]#1.00 TIFF Normal [facility] Monitor Record [id number]#1.00 TIFF Normal [facility] Monitor Record [id number]#1.00 TIFF Normal [facility] Monitor Record [id number]#1.00 TIFF Normal [facility] Progress Note-Physicianon Progress Note-Physician Subjective Detail [...] 05:35:00) Lymph Auto: 20.4 % (07/07/23 05:35:00) [place] Auto: 6.4 % (07/07/23 05:35:00) Eos Auto: 3 % (07/07/23 05:35:00) Basophil Auto: 0.5 % (07/07/23 05:35:00) Neutro Absolute: 5.7 E9/L (07/07/23 05:35:00) Lymph Absolute: 1.7 E9/L (07/07/23 05:35:00) [place] Absolute: 0.5 E9/L (07/07/23 05:35:00) Eos Absolute: [...] Ordered: Initial Hospital Care/Day Moderate 55 Minutes 19046 2. Acute kidney injury (N17.9: Acute kidney failure, unspecified) FENa 1.8 which may be intrinsic; patient was taking HCTZ and lisinopril which had been held and he was also taking Mobic Creatinine down to 1.6 Continue to trend Ordered: Initial Hospital Care/Day Moderate 55 Minutes 23092 Orders: acetaminophen, 650 mg = 2 tab(s), Tab, Oral, q6hr PRN Pain, Routine, Start date 07/06/23 16:49:00 EDT, 07/06/23 16:49:00 EDT Al hydroxide/Mg hydroxide/simethicone, 30 mL, Susp-Or (more content not included)... Normal [facility] Comment on above: Result Comment: Elec tronically Signed By: Dwight Eddy DO\.br\Date and Time Signed: 07/07/23 14:55 EDT eGFRon 07-07-2023 eGFR 47 mL/min/1.73 m2 Low >=59 [facility] Comment on above: Order Comment: Order added by Discern Expert. Performed By: #### 1 [id number] #### [facility] [address] [place] [address] BMPon 07-06-2023 Anion gap [Moles/Vol] 12 mmol/L Normal 6-16 [facility] Comment on above: Performed By: #### 2 892335 #### [facility] [address] [place] [address] Calcium [Mass/Vol] 8.6 mg/dL Low 8.9-11.1 [facility] Comment on above: Performed By: #### 2 953721 #### [facility] [address] [place] [address] Chloride [Moles/Vol] 104 mmol/L Normal 101-111 [facility] Comment on above: Performed By: #### 2 418908 #### [facility] [address] [place] [address] CO2 [Moles/Vol] 25 mmol/L Normal 21-31 [facility] Comment on above: Performed By: #### 2 616116 #### [facility] [address] [place] [address] Creatinine [Mass/Vol] 1.8 mg/dL High 0.5-1.3 [facility] Comment on above: Performed By: #### 2 966410 #### [facility] [address] [place] [address] Glucose [Mass/Vol] 111 mg/dL Normal 55-199 [facility] Comment on above: Performed By: #### 2 227124 #### [facility] [address] [place] [address] Potassium [Moles/Vol] 3.5 mmol/L Normal 3.5-5.3 [facility] Comment on above: Performed By: #### 2 273471 #### [facility] [address] [place] [address] Sodium [Moles/Vol] 137 mmol/L Normal 135-145 [facility] Comment on above: Performed By: #### 2 115747 #### [facility] [address] [place] [address] Urea nitrogen [Mass/Vol] 29 mg/dL High 5-21 [facility] Comment on above: Performed By: #### 2 352737 #### [facility] [address] [place] [address] Urea nitrogen/Creatinine [Mass ratio] 16 No Units Normal 10-20 [facility] Comment on above: Performed By: #### 2 783680 #### [facility] [address] [place] [address] CBC w/ Auto Diffon 4 Basophils/100 WBC (Bld) 0.4 % Normal 0.0-2.0 [facility] Comment on above: Performed By: #### 2 242016 #### [facility] [address] [place] [address] Basophils/Leukocytes Auto (Bld) [Pure # fraction] 0.0 E9/L Normal 0.0-0.2 [facility] Comment on above: Performed By: #### 2 863215 #### [facility] [address] [place] [address] Eosinophils (Bld) [#/Vol] 0.2 E9/L Normal 0.0-0.5 [facility] Comment on above: Performed By: #### 2 346930 #### [facility] [address] [place] [address] Eosinophils/100 WBC (Bld) 2.8 % Normal 0.0-8.0 [facility] Comment on above: Performed By: #### 2 498144 #### [facility] [address] [place] [address] Erythrocyte distribution width (RBC) [Ratio] 13.9 % Normal 10.9-14.2 [facility] Comment on above: Performed By: #### 2 570629 #### [facility] [address] [place] [address] Hematocrit (Bld) [Volume fraction] 46.2 % Normal 37.7-49.0 [facility] Comment on above: Performed By: #### 2 197190 #### [facility] [address] [place] [address] Hemoglobin (Bld) [Mass/Vol] 15.6 g/dL Normal 13.5-17.5 [facility] Comment on above: Performed By: #### 2 515962 #### [facility] [address] [place] [address] Lymphocytes (Bld) [#/Vol] 1.3 E9/L Normal 1.0-4.0 [facility] Comment on above: Performed By: #### 2 802882 #### [facility] [address] [place] [address] Lymphocytes/100 WBC (Bld) 18.3 % Normal 14.0-50.0 [facility] Comment on above: Performed By: #### 2 784631 #### [facility] [address] [place] [address] MCH (RBC) [Entitic mass] 32.2 pg Normal 27.0-34.0 [facility] Comment on above: Performed By: #### 2 455128 #### [facility] [address] [place] [address] MCHC (RBC) [Mass/Vol] 33.7 g/dL Normal 31.4-36.0 [facility] Comment on above: Performed By: #### 2 545276 #### [facility] [address] [place] [address] MCV (RBC) [Entitic vol] 95.3 fL Normal 80.0-100.0 [facility] Comment on above: Performed By: #### 2 696707 #### [facility] [address] [place] [address] Monocytes (Bld) [#/Vol] 0.6 E9/L Normal 0.2-1.0 [facility] Comment on above: Performed By: #### 2 736517 #### [facility] [address] [place] [address] Neutrophils (Bld) [#/Vol] 4.9 E9/L Normal 2.0-7.5 [facility] Comment on above: Performed By: #### 2 853559 #### [facility] [address] [place] [address] Neutrophils/100 WBC (Bld) 70.2 % Normal 36.0-75.0 [facility] Comment on above: Performed By: #### 2 880474 #### [facility] [address] [place] [address] Platelet 189.0 E9/L Normal 150.0-500.0 [facility] Comment on above: Performed By: #### 2 856397 #### [facility] [address] [place] [address] Platelet mean volume (Bld) [Entitic vol] 8.5 fL Normal 6.4-10.8 [facility] Comment on above: Performed By: #### 2 424564 #### [facility] [address] [place] [address] RBC (Bld) [#/Vol] 4.8 E12/L Normal 4.3-5.9 [facility] Comment on above: Performed By: #### 2 369630 #### [facility] [address] [place] [address] WBC corrected for nucl RBC Auto (Bld) [#/Vol] 7.0 E9/L Normal 4.0-11.0 [facility] Comment on above: Performed By: #### 2 133498 #### [facility] [address] [place], [place] [address] CHEMISTRYOrdered By: SYSTEM SYSTEM on 07-06-2023 Sodium [Moles/Vol] 127 mmol/L Invalid Interpretation Code Remisol Chem U Creatinine 93.5 mg/dL Invalid Interpretation Code Remisol Chem Lactic Acid Lvl 1.0 mmol/L Normal 0.5 - 2.2 mmol/L Remisol Chem Consent for Treatmenton 06-19 Consent for Treatment [id number]#1.00T IFF Normal [facility] ED Clinical Summaryon 2023 ED Clinical Summary (Inserted Image. Denisha ble to display) [address] [address] ED Clinical Summary Person Information [facility]: [facility] Age[facility] 68 [facility] : 1955 Sex: Male Language: [place] PCP: Michelle Figueroa MD Marital Status: MRN: Visit Id: Visit Reason: Cellulitis - Leg; Lower leg pain-swelling; SENT BY DR MARISCAL, LEG PAIN Speciality: Acuity: 3 Enc Type: Inpatient Med Service: Emergency Arrival: 07/06/2023 12:00:42 Discharge: LOS: 000 03:16 Checkin: 07/06/2023 12:00:42 Checkout: 07/06/2023 15:16:48 Dispo Type: Admitted as IP to this [facility] EVENTS: Event Name Event Status Request [...] 14:38:53 Patient Care Request 07/06/2023 14:38:53 ADDRESS: [address] [place] [id number] [facility] DOC NOTES: MEDICAL INFORMATION: Prescriptions Given: [...] up: DIAGNOSIS: 1:Cellulitis of right leg Normal [facility] ED Note-Physicianon 07-06-19 ED Note-Physician Basic Information Time Seen: Curt VARGASFranki 07/06/2023 12:12 Chief Complaint pt reports he saw Roberto Carloselsie in this last week for cellulitis of [...] made to ensure accuracy, however, inadvertently computerized retail assistant store manager mistakes may be present. Appropriate healthcare [...] mg= 1 (more content not included)... Normal [facility] Comment on above: Result Comment: Elec tronically Signed By: Franki Elias PA-C\.br\Date and Time Signed: 07/06/23 14:52 EDT\.br\Electronically Co-Signed By: Arnel Modi DO\.br\Date and Time Co-Signed: 07/06/23 15:54 EDT ED Patient Education Noteon 07-06-2023 ED Patient Education Note Normal [facility] ED Patient Summaryon 024 ED Patient Summary (Inserted Image. Denisha ble to display) [place] [id number] Patient Discharge Instructions Person Information Name: JEAN MARIE MAST SR Age: 68 Years Arrival Date: 07/06/2023 12:00:42 Discharge Diagnosis: 1:Cellulitis of right leg Primary Care Physician: Michelle Figueroa MD Provider Information Primary Provider: Arnel Modi DO Advanced Canvas Baster Jumpbasting:Franki Elias PA-C The exam and treatment you received in the Emergency Department were for an urgent problem and are not intended as complete care. It is important that you follow up with a doctor, nurse practitioner, or physician?s assistant grocery for ongoing care. If your symptoms become worse or you do not improve as expected and you are unable to reach your usual health care provider, you should return to the Emergency Department. We are available 24 hours a day. MORLEY SR JEAN MARIE has been given the following [...] opioids can be used to help relieve elkzysse-ii-dekvto pain and are often prescribed following a [...] be struggling with addiction, tell your health respite care provider and ask for guidance or call [facility] National Helpline at 9-855-870-BWEN. f Source: [place] Department of Health and Human Services/Center for Disease Control & Prevention [facility] Medications Given: Medicati (more content not included)... Normal [facility] HEMATOLOGYOrdered By: SYSTEM SYSTEM on 07-06-2023 [...] Lactic Acid Lvl 1.0 mmol/L Normal 0.5-2.2 [facility] Comment on above: Performed By: #### 2 [id number] #### [facility] [address] [place] [address] No Panel InformationOrdered By: ANGPROCESSSERVER MICROBIOLOGY on 07-06-2023 Blood Culture Charcoal No growth at 4 da ys. Final to follow at 7 days. [facility] Blood Culture Charcoal No growth at 4 da ys. Final to follow at 7 days. [facility] Progress Note - Pharmacyon 0 07-06-2023 Progress [...] questions please contact the pharmacy at extension [phone]. Age: 68 Years Allergies: aspirin Weight: Last [...] 13.9 % (07/06/23 12:34:00) Platelet: 189 E9/L (05/17/24 12:34:00) MPV: 8.5 fL (07/06/23 12:34:00) Neutro Auto: 70.2 % (07/06/23 12:34:00) Lymph Auto: 18.3 % (07/06/23 12:34:00) [place] Auto: 8.3 % (07/06/23 12:34:00) Eos Auto: 2.8 % (07/06/23 12:34:00) Basophil Auto: 0.4 % (07/06/23 12:34:00) Neutro Absolute: 4.9 E9/L (07/06/23 12:34:00) Lymph Absolute: 1.3 E9/L (07/06/23 12:34:00) [place] Absolute: 0.6 E9/L (07/06/23 12:34:00) Eos Absolute: [...] Acid Lvl: 1 mmol/L (07/06/23 12:34:00) Normal [facility] U Creatinineon 07-06-2023 U Creatinine 93.5 mg/dL Invalid Interpretation Code [facility] Comment on above: Performed By: #### 2 [id number] #### [facility] [address] [place] [address] U Sodiumon 07-06-2023 Sodium [Moles/Vol] 127 mmol/L Invalid Interpretation Code [facility] Comment on above: Performed By: #### 2 [id number] #### [facility] [address] [place] [address] URINALYSISOrdered By: BombBomb SYSTEM on 07-06-2023 Bilirubin Ql (U) Negative Normal Negativemg/ d L FT UA Auto SS Clarity (U) Clear (07/06/23 8:20 PM) Normal Clear MC UA Auto SS Color (U) Light-Yellow 1 (07/06/23 8:20 PM) Normal Yellow FTMC UA Auto SS Comment on above: Interpretive Data: M icroscopic readings are only performed on those samples that meet specific criteria set forth by [facility]. Glucose Ql (U) Negative Normal [...] 06-19 Bilirubin Ql (U) Negative Normal Negative [facility] Comment on above: Performed By: #### 4 [id number] #### [facility] [address] [place] [address] Clarity (U) Clear Normal Clear [facility] Comment on above: Performed By: #### 4 [id number] #### [facility] [address] [place] [address] Color (U) Light-Yellow Normal Yellow [facility] Comment on above: Result Comment: Micr oscopic readings are only performed on those samples that meet specific criteria set forth by [facility]. Performed By: #### 4 [id number] #### [facility] [address] [place] [address] Glucose Ql (U) Negative Normal Negative [facility] Comment on above: Performed By: #### 4 [id number] #### [facility] [address] [place] [address] Hemoglobin Auto test strip (U) [Mass/Vol] Negative Normal Negative [facility] Comment on above: Performed By: #### 4 [id number] #### [facility] [address] [place] [address] Ketones Auto test strip Ql (U) Negative Normal Negative [facility] Comment on above: Performed By: #### 4 [id number] #### [facility] [address] [place] [address] Leukocyte esterase Auto test strip Ql (U) Negative Normal Negative [facility] Comment on above: Performed By: #### 4 [id number] #### [facility] [address] [place] [address] Nitrite Auto test strip Ql (U) Negative Normal Negative [facility] Comment on above: Performed By: #### 4 [id number] #### [facility] [address] [place] [address] pH (U) 5.5 [pH] Invalid Interpretation Code 5.0-9.0 [facility] Comment on above: Performed By: #### 4 [id number] #### [facility] [address] [place] [address] Protein Ql (U) Trace Abnormal Negative [facility] Comment on above: Performed By: #### 4 [id number] #### [facility] [address] [place] [address] Specific gravity (U) [Rel density] 1.020 Invalid Interpretation Code 1.005-1.030 [facility] Comment on above: Performed By: #### 4 [id number] #### [facility] [address] [place] [address] Urobilinogen (U) [Mass/Vol] Negative Normal Negative [facility] Comment on above: Performed By: #### 4 [id number] #### [facility] [address] [place] [address] Type of Urine collection method Random Urine Normal [facility] Comment on above: Performed By: #### 4 [id number] #### [facility] [address] [place] [address] eGFRon 07-06-2023 eGFR 41 mL/min/1.73 m2 Low >=59 [facility] Comment on above: Order Comment: Order added by Discern Expert. Performed By: #### 1 [id number] #### [facility] [address] [place] [address] US LE Venous Duplex Righton 07-04-2023 US [...] [place] MD Transcribed by: LALY Technologist: KR [facility] Consent for Treatmenton 06-19 Consent for Treatment [id number] IFF [facility] Physician Orderon 07-03-2023 Physician Order [id number] FF [facility] CHEMISTRYOrdered By: SYSTEM SYSTEM on 11-15-2021 Prostate specific Ag [Mass/Vol] 0.8 ng/mL Normal 0.1 - 3.5 ng/mL [facility] Remisol Vital Signs Date Time Vital Sign Value Performing Clinician Facility 02-28-2024 13:00-0500 Body height 185.4 cm Michelle Figueroa MD Work Phone: [facility] 02-28-2024 13:00-0500 Body mass index (BMI) [Ratio] 32.06 kg/m2 Michelle Figueroa MD Work Phone: [facility] 02-28-2024 13:00-0500 Body temperature 98.4 [degF] Michelle Figueroa MD Work Phone: [facility] 02-28-2024 13:00-0500 Body weight 110.22 kg Michelle Figueroa MD Work Phone: [facility] 02-28-2024 13:00-0500 Diastolic blood pressure 82 mm[Hg] Michelle Figueroa MD Work Phone: [facility] 02-28-2024 13:00-0500 Heart rate 95 /min Michelle Figueroa MD Work Phone: [facility] 02-28-2024 13:00-0500 SaO2% (BldA) [Mass fraction] 96 % Michelle Figueroa MD Work Phone: [facility] 02-28-2024 13:00-0500 Systolic blood pressure 116 mm[Hg] Michelle Figueroa MD Work Phone: [facility] 12-24-2023 13:39-0500 Body height 185.4 cm Destinee Issa PA Work Phone: [facility] 12-24-2023 13:39-0500 Body mass index (BMI) [Ratio] 30.93 kg/m2 Destinee Issa PA Work Phone: [facility] 12-24-2023 13:39-0500 Body temperature 98.2 [degF] Destinee Issa PA Work Phone: [facility] 12-24-2023 13:39-0500 Body weight 106.32 kg Destinee Issa PA Work Phone: [facility] 12-24-2023 13:39-0500 Diastolic blood pressure 80 mm[Hg] Destinee Issa PA Work Phone: [facility] 12-24-2023 13:39-0500 Heart rate 123 /min Destinee Issa PA Work Phone: [facility] 12-24-2023 13:39-0500 SaO2% (BldA) [Mass fraction] 96 % Destinee Issa PA Work Phone: [facility] 12-24-2023 13:39-0500 Systolic blood pressure 138 mm[Hg] Destinee Issa PA Work Phone: [facility] 11-01-2023 15:23-0400 Body temperature 97.1 [degF] [facility] 11-01-2023 15:23-0400 Diastolic blood pressure 67 mm[Hg] [facility] 11-01-2023 15:23-0400 Heart rate 82 /min [facility] 11-01-2023 15:23-0400 Systolic blood pressure 108 mm[Hg] [facility] 10-08-2023 15:44-0400 Body height 185.42 cm [facility] 10-08-2023 15:44-0400 Body mass index (BMI) [Ratio] 30.3 kg/m2 [facility] 10-08-2023 15:44-0400 Body temperature 98.4 [degF] [facility] 10-08-2023 15:44-0400 Body weight 104.32 kg [facility] 10-08-2023 15:44-0400 Diastolic blood pressure 69 mm[Hg] [facility] 10-08-2023 15:44-0400 Heart rate 85 /min [facility] 10-08-2023 15:44-0400 Systolic blood pressure 128 mm[Hg] [facility] 08-15-2023 14:53-0400 Body height 185.42 cm [facility] 08-15-2023 14:53-0400 Body mass index (BMI) [Ratio] 31.4 kg/m2 [facility] 08-15-2023 14:53-0400 Body temperature 97.5 [degF] [facility] 08-15-2023 14:53-0400 Body weight 108 kg [facility] 08-15-2023 14:53-0400 Diastolic blood pressure 87 mm[Hg] [facility] 08-15-2023 14:53-0400 Heart rate 75 /min [facility] 08-15-2023 14:53-0400 Systolic blood pressure 135 mm[Hg] [facility] 07-25-2023 13:54-0400 Body height 185.42 cm [facility] 07-25-2023 13:54-0400 Body mass index (BMI) [Ratio] 31.6 kg/m2 [facility] 07-25-2023 13:54-0400 Body temperature 98.6 [degF] [facility] 07-25-2023 13:54-0400 Body weight 108.86 kg [facility] 07-25-2023 13:54-0400 Diastolic blood pressure 79 mm[Hg] [facility] 07-25-2023 13:54-0400 Heart rate 52 /min [facility] 07-25-2023 13:54-0400 Systolic blood pressure 142 mm[Hg] [facility] 07-10-2023 13:15-0400 Hourly Rounding Dwight Surjit [facility] 07-10-2023 12:29-0400 Hourly Rounding Dwight Surjit [facility] 07-10-2023 12:29-0400 Promise to Return Dwight Surjit [facility] 07-10-2023 12:01-0400 Heart rate 79 /min Dwight Surjit [facility] 07-10-2023 12:01-0400 SaO2% (BldA) [Mass fraction] 95 % Dwight Surjit [facility] 07-10-2023 12:00-0400 Body temperature 97.34 [degF] Dwight Surjit [facility] 07-10-2023 12:00-0400 Diastolic blood pressure 86 mm[Hg] Dwight Surjit [facility] 07-10-2023 12:00-0400 Mean blood pressure 105 mm[Hg] Dwight Surjit [facility] 07-10-2023 12:00-0400 Systolic blood pressure 142 mm[Hg] Dwight Surjit [facility] 07-10-2023 11:11-0400 Hourly Rounding Dwight Surjit [facility] 07-10-2023 11:11-0400 Promise to Return Dwight Surjit [facility] 07-10-2023 10:08-0400 Promise to Return Dwight Surjit [facility] 07-10-2023 07:51-0400 Heart rate 74 /min Dwight Orellanaer [facility] 07-10-2023 07:51-0400 SaO2% (BldA) [Mass fraction] 94 % Dwight Eddy [facility] 07-10-2023 07:50-0400 Diastolic blood pressure 81 mm[Hg] Dwight Orellanaer [facility] 07-10-2023 07:50-0400 Mean blood pressure 106 mm[Hg] Dwight Orellanaer [facility] 07-10-2023 07:50-0400 Systolic blood pressure 154 mm[Hg] Dwight Eddy [facility] 07-10-2023 07:50-0400 Body temperature 98.24 [degF] Dwight Orellanaer [facility] 07-10-2023 00:10-0400 Blood Pressure Location Dwight Eddy [facility] 07-10-2023 00:10-0400 Body temperature 98.24 [degF] Dwight Orellanaer [facility] 07-10-2023 00:10-0400 Diastolic blood pressure 69 mm[Hg] Dwight Boxcker [facility] 07-10-2023 00:10-0400 Heart rate 83 /min Dwight Orellanaer [facility] 07-10-2023 00:10-0400 Mean blood pressure 92 mm[Hg] Dwight Boxcker [facility] 07-10-2023 00:10-0400 Respiratory rate 18 /min Dwight Boxcker [facility] 07-10-2023 00:10-0400 SaO2% (BldA) [Mass fraction] 93 % Dwight Boxcker [facility] 07-10-2023 00:10-0400 Systolic blood pressure 139 mm[Hg] Dwight Orellanaer [facility] 07-09-2023 19:25-0400 Heart rate 80 /min Dwight Orellanaer [facility] 07-09-2023 19:21-0400 Respiratory rate 16 /min Dwight Boxcker [facility] 07-09-2023 19:21-0400 Body temperature 98.06 [degF] Dwight Boxcker [facility] 07-09-2023 19:21-0400 Mean blood pressure 91 mm[Hg] Dwight Orellanaer [facility] 07-09-2023 05:51-0400 Blood Pressure Location Dwight Surjit [facility] 07-09-2023 05:51-0400 Body temperature 98.24 [degF] Dwight Boxcker [facility] 07-09-2023 05:51-0400 Heart rate 73 /min Dwight Orellanaer [facility] 07-09-2023 05:51-0400 Mean blood pressure 96 mm[Hg] Dwight Boxcker [facility] 07-09-2023 05:51-0400 Respiratory rate 18 /min Dwight Boxcker [facility] 07-09-2023 00:10-0400 Blood Pressure Location Dwight Surjit [facility] 07-09-2023 00:10-0400 Body temperature 98.42 [degF] Dwight Surjit [facility] 07-09-2023 00:10-0400 Heart rate 69 /min Dwight Eddy [facility] 07-09-2023 00:10-0400 Mean blood pressure 91 mm[Hg] Dwight Eddy [facility] 04-02-2023 13:09-0500 Body height 185.4 cm Gerald Padilla MD Work Phone: [facility] 04-02-2023 13:09-0500 Body mass index (BMI) [Ratio] 31.14 kg/m2 Gerald Padilla MD Work Phone: [facility] 04-02-2023 13:09-0500 Body weight 107.05 kg Gerald Padilla MD Work Phone: [facility] 04-02-2023 13:09-0500 Diastolic blood pressure 77 mm[Hg] Gerald Padilla MD Work Phone: [facility] 04-02-2023 13:09-0500 Systolic blood pressure 137 mm[Hg] Gerald Padilla MD Work Phone: [facility] 03-21-2023 14:55-0500 Body height 185.4 cm Cynthia Pocos DO Work Phone: [facility] 03-21-2023 14:55-0500 Body mass index (BMI) [Ratio] 31.14 kg/m2 Cynthia Pocos DO Work Phone: [facility] 03-21-2023 14:55-0500 Body weight 107.05 kg Cynthia Pocos DO Work Phone: [facility] 11-21-2021 08:55-0400 Blood Pressure Location Taras BURDICK [facility] 11-21-2021 08:55-0400 Diastolic blood pressure 111 mm[Hg] Taras BURDICK [facility] 11-21-2021 08:55-0400 Heart rate 73 /min Taras BURDICK [facility] 11-21-2021 08:55-0400 Respiratory rate 16 /min Taras BURDICK [facility] 11-21-2021 08:55-0400 Systolic blood pressure 148 mm[Hg] Taras BURDICK [facility] Encounters Encounter Date Encounter Type Care Provider Facility Start: 04-23-2024 ambulatory Taras BURDICK Facility :[facility] Start: 02-28-2024 End: 02-28-2024 Bamboo flowsheet Michelle Figueroa MD Work Phone: [facility] Start: 02-28-2024 End: 02-28-2024 Bamboo flowsheet Michelle Figueroa MD Work Phone: [facility] Start: 02-28-2024 End: 02-28-2024 Office outpatient visit 25 minutes Michelle Figueroa MD Work Phone: [facility] Comment on above: Essential hypertensi on (CMS/HCC) (Primary Dx); Chronic kidney disease, stage 3a (HCC) (CMS/HCC); Nephrolithiasis; Degeneration of intervertebral disc of lumbar region with discogenic back pain Start: 02-28-2024 End: 02-28-2024 ambulatory MICHELLE FIGUEROA Not Available Start: 12-24-2023 End: 12-24-2023 Bamboo flowsheet Destinee SWIFT Work Phone: [facility] Start: 12-24-2023 End: 12-24-2023 Bamboo flowsheet Destinee Issa PA Work Phone: [facility] Start: 12-24-2023 End: 12-24-2023 Office outpatient visit 15 minutes Destinee SWIFT Work Phone: [facility] Comment on above: Plant allergic conta ct dermatitis (Primary Dx); Non-recurrent acute serous otitis media of right ear Start: 12-24-2023 End: 12-24-2023 ambulatory DESTINEE ISSA Not Available Start: 11-01-2023 End: 11-01-2023 ambulatory [facility] Work Phone: Start: 11-01-2023 End: 11-01-2023 Patient encounter procedure [facility] Work Phone: Start: 10-08-2023 End: 10-08-2023 ambulatory [facility] Work Phone: Start: 10-08-2023 End: 10-08-2023 Patient encounter procedure [facility] Work Phone: Start: 10-05-2023 End: 10-05-2023 ambulatory MICHELLE FIGUEROA Not Available Start: 09-12-2023 ambulatory Taras BURDICK Facility :[facility] Start: 09-12-2023 End: 09-12-2023 Patient encounter procedure Taras BURDICK [facility] Start: 09-10-2023 End: 09-10-2023 ambulatory JHONATAN MARISCAL Not Available Start: 09-04-2023 End: 09-04-2023 ambulatory Michelle Figueroa Facility:[facility] Start: 09-04-2023 End: 09-04-2023 Patient encounter procedure Taras BURDICK [facility] Start: 08-31-2023 End: 08-31-2023 ambulatory MICHELLE FIGUEROA Not Available Start: 08-27-2023 End: 08-27-2023 ambulatory JHONATAN BAUTISTACE Not Available Start: 08-16-2023 End: 08-16-2023 ambulatory MICHELLE FIGUEROA Not Available Start: 08-16-2023 End: 08-16-2023 ambulatory DO Jose Manuel Figueroa Facility:[facility] Start: 08-15-2023 End: 08-15-2023 ambulatory [facility] Work Phone: Start: 08-15-2023 End: 08-15-2023 Patient encounter procedure [facility] Infectious Disease Work Phone: Start: 08-06-2023 End: 08-07-2023 Pre-admission assessment Dixie Brandon [facility] Start: 07-27-2023 End: 07-27-2023 ambulatory JHONATAN D DOLCE Not Available Start: 07-25-2023 End: 07-25-2023 ambulatory [facility] Work Phone: Start: 07-25-2023 End: 07-25-2023 Patient encounter procedure [facility] Work Phone: Start: 07-18-2023 End: 07-18-2023 ambulatory JHONATAN D DOLCE Not Available Start: 07-17-2023 End: 07-17-2023 ambulatory MICHELLE FIGUEROA Not Available Start: 07-11-2023 End: 07-11-2023 ambulatory JHONATAN D DOLCE Not Available Start: 07-10-2023 End: 07-10-2023 Non-patient / Non-visit [facility] Work Phone: Start: 07-06-2023 End: 07-10-2023 Evaluation and management of inpatient Elvira WALLER Facility:[facility] Start: 07-06-2023 Emergency department patient visit Arnel Modi Facility:[facility] Start: 07-06-2023 End: 07-10-2023 Evaluation and management of inpatient Dwight Eddy [facility] Start: 07-04-2023 End: 07-04-2023 ambulatory JHONATAN D DOLCE Not Available Start: 07-03-2023 End: 07-03-2023 ambulatory Jhonatan D Dolce Facility:[facility] Start: 07-03-2023 End: 07-03-2023 Patient encounter procedure Jhonatan Mariscal [facility] Start: 07-03-2023 End: 07-03-2023 ambulatory JHONATAN MARISCAL Not Available Start: 06-26-2023 End: 06-26-2023 ambulatory MICHELE A PLEASNICK Not Available Start: 06-19-2023 End: 06-19-2023 ambulatory MICHELE A PLEASNICK Not Available Start: 06-12-2023 End: 06-12-2023 ambulatory MICHELE A PLEASNICK Not Available Start: 06-04-2023 End: 06-05-2023 ambulatory LIZBETH GUZIK Not Available Start: 05-22-2023 End: 05-22-2023 ambulatory MICHELE A PLEASNICK Not Available Start: 05-15-2023 End: 05-15-2023 ambulatory LIZBETH GUZIK Not Available Start: 05-07-2023 End: 05-08-2023 ambulatory CHRISRAYRAY MOREIRA Not Available Start: 05-07-2023 End: 05-07-2023 ambulatory JHNOATAN MARISCAL Not Available Start: 05-02-2023 End: 05-02-2023 ambulatory RUFINO POCOS Not Available Start: 05-01-2023 End: 05-01-2023 ambulatory CHRIS MOREIRA Not Available Start: 04-24-2023 End: 04-24-2023 ambulatory LIZBETH DAUGHERTYK Not Available Start: 04-23-2023 End: 04-23-2023 ambulatory JHONATAN MARISCAL Not Available Start: 04-16-2023 End: 04-17-2023 ambulatory SHERIE HOUGH Not Available Start: 04-10-2023 End: 04-10-2023 ambulatory ENRIQUETA SOSA Not Available Start: 04-10-2023 End: 04-10-2023 ambulatory SHERIE HOUGH Not Available Start: 04-02-2023 End: 04-03-2023 ambulatory SHERIE HOUGH Not Available Start: 04-02-2023 Bamboo flowsfady martinez MD Work Phone: [facility] Start: 04-02-2023 Kevon martinez MD [facility] Start: 04-02-2023 End: 04-02-2023 Office outpatient new 30 minutes Gerald Padilla MD Work Phone: [facility] Comment on above: Bilateral tinnitus ( Primary Dx); Sensorineural hearing loss (SNHL), bilateral Start: 04-02-2023 End: 04-02-2023 ambulatory GERALD PADILLA Not Available Start: 03-30-2023 Chart abstracting Gerald rodriguez MD Work Phone: [facility] [facility] Start: 03-26-2023 Chart abstracting Cynthia Garciao s DO Work Phone: [facility] Start: 03-21-2023 End: 03-21-2023 ambulatory CYNTHIA GARCIAOS Not Available Start: 03-21-2023 End: 03-21-2023 Patient encounter procedure Cynthia Cruz DO Work Phone: [facility] Comment on above: Hip pain, bilateral (Primary Dx); Left hip pain; Lumbar spondylosis; Degeneration of lumbar intervertebral disc; Trochanteric bursitis of both hips; Left hip impingement syndrome; Right hip impingement syndrome Start: 03-21-2023 End: 03-21-2023 ambulatory CYNTHIA GARCIAOS Not Available Start: 03-20-2023 End: 03-20-2023 ambulatory DEIDRA S JAN Not Available Start: 03-13-2023 End: 03-13-2023 ambulatory MICHELLE FIGUEROA Not Available Start: 11-21-2021 End: 11-21-2021 Patient encounter procedure Taras BURDICK [facility] Start: 11-15-2021 End: 11-15-2021 Patient encounter procedure Taras BURDICK [facility] Procedures Date Procedure Procedure Detail Performing Clinician Start: 03-21-2023 End: 03-21-2023 Radex spine lumbosacral 2/3 views Cynthia Garciaos DO Work Phone: Start: 09-08-2015 Cysto, left ureteral stent removal, left RGP, left ureteronephroscopy with Holmium laser ablation, multiple basket extraction of stone,fragments, replacement of JJ ureteral stent under fluoroscopic guidance. Taras BURDICK Start: 08-04-2015 Cystoscopy Taras MOORE Comment on above: Left Stent Insertion Hernia of abdominal cavity (disorder) Taras BURDICK Plan of Treatment Date Care Activity Detail Author Start: 08-29-2024 End: 08-29-2024 Patient encounter procedure 08/29/2024 3:40 PM EDT Office Visit [facility] [address] [place] [phone] Michelle Figueroa MD [address] [place] [address] [facility] Start: 07-16-2024 Medicare Annual Wellness (AWV) Medicare Annual Wellness (AWV) [facility] Start: 07-16-2024 Pneumococcal Vaccine : 65+ Years (1 of 1 - PCV) Pneumococcal Vaccine: 65+ Years (1 of 1 - PCV) [facility] Comment on above: Postponed from 02/23 (Patient Refused) Start: 03-04-2024 End: 03-04-2024 Patient encounter procedure 03/04/2024 8:00 AM EST [facility] [address] [place] [address] Michelle Figueroa MD [address] [place] [address] [facility] Start: 02-28-2024 End: 02-28-2024 Patient encounter procedure 02/28/2024 1:00 PM EST Office Visit [facility] [address] [place] [phone] Michelle Figueroa MD [address] [place] [address] Arrived [facility] Comment on above: Arrived Start: 02-20-2024 Screening for malign ant neoplasm of colon Colorectal Cancer Screening [facility] Comment on above: Postponed from 02/23 (Patient Refused) Start: 12-24-2023 End: 12-24-2023 Patient encounter procedure 12/24/2023 1:30 PM EST Office Visit [facility] [address] [place] [phone] Destinee Issa, PA [address] [place] [address] Arrived [facility] Comment on above: Arrived Start: 10-21-2023 Influenza vaccination Influenza Vacc ine (#1) [facility] Start: 06-08-2023 Medicare Annual Wellness (AWV) Medicare Annual Wellness (AWV) [facility] Start: 04-23-2023 End: 04-23-2023 Patient encounter procedure 04/23/2023 3:45 PM EST Office Visit [facility] [address] [phone] Cynthia Cruz, DO [address] [facility] [place] [address] [facility] Start: 04-02-2023 End: 04-02-2023 ambulatory 04/02/2023 6:00 PM EST Evaluation [facility] [address] [facility] [place] [address] Sherie Hough, PT [address] [facility] [place] [address] [facility] Start: 04-02-2023 End: 04-02-2023 Patient encounter procedure [facility] [place] Comment on above: Arrived Start: 10-20-2022 Influenza vaccination Influenza Vacc ine (#1) [facility] Start: 02-23-2021 Pneumococcal Vaccine : 65+ Years (1 - PCV) Pneumococcal Vaccine: 65+ Years (1 - PCV) [facility] Start: 1955 Screening for malign ant neoplasm of colon [facility] XR Lumbar spine 2 or 3 Views XR lumbar spine 2 or 3 views Imaging Routine Hip pain, bilateral 03/21/2023 2:51 PM EST [facility] XR Pelvis AP and Hip - bilateral GE 2 Views XR hips bilateral 2 views Imaging Routine Hip pain, bilateral 03/21/2023 2:51 PM EST [facility] Work Phone: Immunizations Immunization Date Immunization Notes Care Provider Mercedes perez 07-11-2013 tetanus toxoid, redu troy diphtheria toxoid, and acellular pertussis vaccine, adsorbed Taras BURDICK [facility] Payers Date Payer Category Payer Unknown [facility] [id number] 2022-Present [address] [facility] [place] [address] [id number] 2021 Private Health Insurance [facility] [id number] .[id number] 5 2021 Medicare [id number] 2021 Medicare [id number]. 1.13.693 .[id number] 2021 Medicare [id number] 1955 Unknown [id number] 2.16.840.1.659028.3.579 .2.727 1956 Unknown [id number] 2.16.840.1.797988.3.579 .2.727 1956 Unknown [id number] 2.16.840.1.393658.3.579 .2.727 1956 Unknown [id number] 2.16.840.1.121816.3.579 .2. 1956 Unknown [id number] 2.16.840.1.093024.3.579 .2. 1956 Unknown [id number] 2.16.840.1.900192.3.579 .2. 1956 Unknown [id number] 2.16.840.1.750994.3.579 .2. 1956 Unknown [id number] 2.16.840.1.512346.3.579 .2.1258 1956 Unknown [id number] 2.16.840.1.398080.3.579 .2.1258 1956 Unknown [id number] 2.16.840.1.630621.3.579 .2.1258 1956 Unknown [id number] 2.16.840.1.426438.3.579 .2.1258 1956 Unknown [id number] 2.16.840.1.597688.3.579 .2.1258 1956 Unknown [id number] 2.16.840.1.508344.3.579 .2.1258 1956 Unknown [id number] 2.16.840.1.313848.3.579 .2.1258 1956 Unknown [id number] 2.16.840.1.266047.3.579 .2.1258 1956 Unknown [id number] 2.16.840.1.629336.3.579 .2.1258 1956 Unknown [id number] 2.16.840.1.606123.3.579 .2.1258 1956 Unknown [id number] 2.16.840.1.206020.3.579 .2.1258 1956 Unknown [id number] 2.16.840.1.839428.3.579 .2.1258 1956 Unknown [id number] 2.16.840.1.988442.3.579 .2.1258 1956 Unknown [id number] 2.16.840.1.629307.3.579 .2.1258 1956 Unknown [id number] 2.16.840.1.356782.3.579 .2.1258 1956 Unknown [id number] 2.16.840.1.846279.3.579 .2.1258 1956 Unknown [id number] 2.16.840.1.761235.3.579 .2.1258 1956 Unknown [id number] 2.16.840.1.455970.3.579 .2.1258 1956 Unknown [id number] 2.16.840.1.167741.3.579 .2.1258 1956 Unknown [id number] 2.16.840.1.571968.3.579 .2.1258 1956 Unknown [id number] 2.16.840.1.354235.3.579 .2.1258 1956 Unknown [id number] 2.16.840.1.819737.3.579 .2.1258 1956 Unknown [id number] 2.16.840.1.900475.3.579 .2.1258 1956 Unknown [id number] 2.16.840.1.604909.3.579 .2.1258 1956 Unknown [id number] 2.16.840.1.296260.3.579 .2.1258 1956 Unknown [id number] 2.16.840.1.574916.3.579 .2.1258 1956 Unknown [id number] 2.16.840.1.952013.3.579 .2.1259 1956 Unknown [id number] 2.16.840.1.016864.3.579 .2.9 1956 Unknown [id number] 2.16.840.1.782020.3.579 .2.9 1956 Unknown [id number] 2.16.840.1.910014.3.579 .2.1258 1956 Unknown [id number] 2.16.840.1.956295.3.579 .2.9 1956 Unknown [id number] 2.16.840.1.202201.3.579 .2.9 1956 Unknown [id number] 2.16.840.1.693635.3.579 .2.1258 1956 Unknown [id number] 2.16.840.1.327787.3.579 .2.1258 1956 Unknown [id number] 2.16.840.1.750931.3.579 .2.9 1956 Unknown [id number] 2.16.840.1.491912.3.579 .2.9 1956 Unknown [id number] 2.16.840.1.335468.3.579 .2.1259 Unknown Regular Insurance [id number] Social History Date Type Detail Facility Start: 11-26-2019 End: 08-27-2023 Tobacco smoking status Ex-smoker (finding) [facility] Tobacco smoking status Never [facility] Start: 03-21-2023 End: 07-16-2023 Sex Assigned At Male [facility] End: 02-19-1989 History of tobacco use Current smoker [facility] End: 02-19-1989 History of tobacco use Cigarette Smoker [facility] Start: 08-12-2022 End: 08-27-2023 Tobacco use and exposure Former smokeless tobacco user [facility] End: 02-19-1989 History of tobacco use Chews Tobacco [facility] Start: 03-21-2023 End: 02-28-2024 Alcohol intake Lifetime non-drinker (finding) [facility] Start: 03-21-2023 End: 07-16-2023 History of Social function [facility] Start: 08-12-2022 Tobacco Comment Last smoked: > 10 years [facility] Start: 08-12-2022 Alcohol Comment Caffeine intak e: 3-4 cups per day soda/pop, energy drinks, tea [facility] Start: 1955 Sex Assigned At Not on file [facility] Start: 07-25-2023 Tobacco smoking status NHIS Never smoked tobacco (finding) [facility] Start: 1955 Sex Assigned At Male [facility] NEGATED: Highlighted rowStart: NINF History of tobacco use Passive smoker [facility] Functional Status Date Assessment Result Facility 07-06-2023 Functional Status N/A [facility] 07-06-2023 Functional Status [facility] 11-21-2021 Functional Status N/A [facility] Clinical Notes 11-21-2021 to 02-28-2024 Michelle Figueroa MD - 02/28/2024 1:00 PM JENIFFER Oliveira - 12/24/2023 1:30 PM EST Note Date & Type Note Facility 02-28-2024 History of Present illness Narrative Images from the original note were not included. Jean Marie Mast is a 69 y.o. male presents with chief complaint of Med Refill, Colon Cancer Screening (Declines at this time), and Immunizations (Declines at this time. ) HPI: History of Present Illness The patient presents for evaluation of blood pressure management, kidney stones, leg swelling, back pain, and gout. He reports intermittent episodes of feeling unwell. 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 He reports no chest pain, headaches, or blurry vision. He has a history of renal calculi, with one stone currently lodged in his right kidney. He is not experiencing any symptoms related to this condition at present. He has undergone three major venous procedures on his leg, with two additional procedures pending. He experiences occasional twinges in his leg but reports no significant pain. He also notes intermittent swelling in the affected leg. He utilizes compression socks or sleeves as needed, particularly when the swelling intensifies, which he finds beneficial. He reports persistent back pain, which he attributes to his occupation. He has reduced his workload compared to two years ago but continues to experience discomfort upon standing and walking. He also reports chronic rib pain, which was exacerbated during a physical therapy session for his hip. He is due for a refill of his gout medication. Supplemental Information He had a consultation with Aline a few months prior for poison yas, which resolved within three days. He was scheduled for blood work and a KUB next week, but his appointment was postponed by Dr. Burdick for another three months. 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 MEDICATIONS: Current Outpatient Medications Medication Instructions allopurinol (ZYLOPRIM) 200 mg, Oral, Daily amLODIPine (NORVASC) 5 mg, Oral, Daily hydroCHLOROthiazide (HYDRODIURIL) 25 mg, Oral, Daily lisinopril 40 mg, Oral, Daily omeprazole (PRILOSEC) 40 mg, Oral, Every 24 hours saccharomyces boulardii (FLORASTOR) 250 mg, 2 times daily ALLERGIES: Allergies Allergen Reactions Aspirin Hives Review of Systems Constitutional: Negative for chills and fever. Respiratory: Negative for shortness of breath. Cardiovascular: Positive for leg swelling. Negative for chest pain. Gastrointestinal: Negative for abdominal pain, nausea and vomiting. Neurological: Negative for headaches. Medical, Surgical, Family, and Social History reviewed. OBJECTIVE: Visit Vitals BP 116/82 (BP Location: Left arm, Patient Position: Sitting, BP Cuff Size: Large adult) Pulse 95 Temp 98.4 F (Temporal) Ht 6' 1 Wt 243 lb SpO2 96% BMI 32.06 kg/m Smoking Status Former BSA 2.38 m BP Readings from Last 3 Encounters: 02/28/24 116/82 12/24/23 138/80 10/05/23 138/80 Wt Readings from Last 3 Encounters: 02/28/24 243 lb 12/24/23 234 lb 6.4 oz 10/05/23 230 lb 6.4 oz Physical Exam Constitutional: Appearance: Normal appearance. He is normal weight. HENT: Head: Normocephalic and atraumatic. Nose: Nose normal. Mouth/Throat: Mouth: Mucous membranes are moist. Eyes: Conjunctiva/sclera: Conjunctivae normal. Cardiovascular: Rate and Rhythm: Normal rate and regular rhythm. Pulmonary: Effort: Pulmonary effort is normal. No respiratory distress. Abdominal: General: Bowel sounds are normal. Tenderness: There is no abdominal tenderness. Musculoskeletal: General: No swelling. Cervical back: Neck supple. Skin: General: Skin is warm and dry. Neurological: General: No focal deficit present. Psychiatric: Mood and Affect: Mood normal. Physical Exam Lungs were auscultated. Vital Signs Blood pressure is normal. Results Laboratory Studies Blood work from August 2023 was stable. ASSESSMENT AND PLAN: Assessment & Plan 1. Blood pressure management. His blood pressure readings are within the normal range. He is advised to continue his current medication regimen without any changes. 2. Kidney stones. He reports having a kidney stone on the right side but is currently asymptomatic. No immediate intervention is required as long as the stone remains stable. 3. Leg swelling. He experiences intermittent swelling in his leg. He manages with compression socks and elevation. He has two more procedures pending for spider veins but has postponed them due to work commitments. 4. Back pain. He reports chronic back pain, which he attributes to his line of work. He has cut back on strenuous activities compared to two years ago. No new interventions are planned at this time. 5. Gout. He mentions that his gout medication will need a refill soon. He is advised to continue his current medication regimen. Follow-up The patient will follow up in 6 months. PROCEDURE The patient has undergone three major venous procedures on his leg. Assessment/Plan Health Maintenance Due Topic Date Due Colorectal Cancer Screening Never done Influenza Vaccine (1) Never done documented in this encounter [facility] 12-24-2023 History of Present illness Narrative Images from the original note were not included. Jean Marie Mast is a 68 y.o. male presents with chief complaint of Poison Yas (/) and Immunizations (Patient declined flu vaccine) HPI: History of Present Illness The patient presents for evaluation of poison yas. 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 The rash is present on his arms, abdomen, and a small patch on his leg. He is not taking any medication for the rash and prefers to avoid steroids due to past side effects, although he has used them previously for poison yas. He is currently undergoing treatment for cellulitis in his leg and is concerned about the potential spread of the rash. He was hospitalized for 4 days due to cellulitis, during which he was given antibiotics that led to kidney shutdown. He had three blisters on his leg and ankle, which he managed with Yas Dry. Initially, he thought the blisters were related to his gout. He was informed that the infection could have led to amputation from the knee down. He was referred to an infectious disease specialist who adjusted his medication regimen. He continues to follow up with this specialist. He has a history of poison yas exposure, but not in recent years. MEDICATIONS: Current Outpatient Medications Medication Instructions allopurinol (ZYLOPRIM) 200 mg, Oral, Daily amLODIPine (NORVASC) 5 mg, Oral, Daily hydroCHLOROthiazide (HYDRODIURIL) 25 mg, Oral, Daily lisinopril 40 mg, Oral, Daily omeprazole (PRILOSEC) 40 mg, Oral, Every 24 hours saccharomyces boulardii (FLORASTOR) 250 mg, 2 times daily ALLERGIES: Allergies Allergen Reactions Aspirin Hives Review of Systems General: Denies fever, chills, fatigue, GONZALEZ or weight loss/gain CV: Denies CP, palpitations or swelling in legs Resp: denies cough, SOB or wheezing GI: Denies abd pain/n/v/c/d Skin: rash Neuro: Denies LH or dizziness Medical, Surgical, Family, and Social History reviewed. OBJECTIVE: Visit Vitals BP 138/80 (BP Location: Left arm, Patient Position: Sitting, BP Cuff Size: Adult) Pulse (!) 123 Temp 98.2 F (Temporal) Ht 6' 1 Wt 234 lb 6.4 oz SpO2 96% BMI 30.93 kg/m Smoking Status Former BSA 2.34 m BP Readings from Last 3 Encounters: 12/24/23 138/80 10/05/23 138/80 09/10/23 134/76 Wt Readings from Last 3 Encounters: 12/24/23 234 lb 6.4 oz 10/05/23 230 lb 6.4 oz 09/10/23 238 lb Physical Exam Physical Exam General: alert & oriented, NAD Head: NC/AT Oral Cavity: MMM Skin: papular rash on forearms and abd Heart: RRR, No m/r/g, S1S2 nml Lungs: CTA b/l Abdomen: soft, ND/NT, BS wnl Musculoskeletal: normal gait Extremities: no clubbing, cyanosis or edema Neurological: nonfocal Psych: mood/affect full range Results ASSESSMENT AND PLAN: Assessment & Plan 1. Poison Maynard Dermatitis. The patient presents with a rash on his arms, belly, and leg, likely due to poison oak exposure. He has not had poison yas or poison oak in a few years but was not as cautious this time. He prefers not to use steroids due to previous adverse reactions, including gastrointestinal upset. A prescription for a steroid pack will be provided to help control the inflammation. He is advised to continue using Yas Dry to manage itching. 2. Cellulitis. The patient has a history of cellulitis in his leg, which is currently under treatment. He is not on any medications for cellulitis at this time. He is concerned about the rash spreading to his leg, which previously required hospitalization and intravenous antibiotics. Continued monitoring of the cellulitis is recommended. Assessment/Plan Problem List Items Addressed This Visit None Health Maintenance Due Topic Date Due Influenza Vaccine (1) Never done documented in this encounter [facility] 09-12-2023 Hospital Discharge instructions Patient Education 09/12/2023 [...] treatment? Where to find more information [employer]: www.cancer.org [employer]: www.auanet.org Contact a health care [...] provider. Document Revised: 08/01/2021 Document Reviewed: 08/01/2021 [employer] Patient Education 2022 [employer]. Follow Up Care 11/21/2021 09:22:02 With:JAMESON SUH, Taras Duncan, URL Address: [facility] [employer] [place] [address]- When: Unknown [facility] 07-13-2023 Note Microbiology PROCEDURE: Blood Culture [...] This test was performed at: [facility], [address] [place] [address], [id number] [place] [address], [facility] Comment on above: Performed By: #### [id number] #### [facility] [address] [place] [id number] 07-13-2023 Note Microbiology PROCEDURE: Blood Culture Charcoal [R1] SOURCE: Blood BODY SITE: Arm L COLLECTED DATE/TIME: 07/06/2023 12:34 EDT RECEIVED DATE/TIME: 07/06/2023 13:01 EDT START DATE/TIME: 07/06/2023 13:01 EDT FREE TEXT SOURCE: Curt VARGAS, Franki Elias PA-C, Franki FINAL REPORTS Final Report [] Verified Date/Time: 07/13/2023 15:00 EDT No growth at 7 days. Performing Locations R1: This test was performed at: [facility], [address] [place] [address], [id number] [place] [address], [facility] Comment on above: Performed By: #### [id number] #### [facility] [address] [place] [id number] 07-11-2023 Note Microbiology PROCEDURE: Wound Culture [R1] SOURCE: Wound BODY SITE: Ankle R COLLECTED DATE/TIME: 07/09/2023 12:52 EDT RECEIVED DATE/TIME: 07/09/2023 13:01 EDT START DATE/TIME: 07/09/2023 13:01 EDT FREE TEXT SOURCE: Elvira WALLER MD, MD, Mbanefo FINAL REPORTS Final Report [] Verified Date/Time: 07/11/2023 12:05 EDT Scant growth of Staphylococcus species coagulase negative STAINS Gram Stain Report [] Verified Date/Time: 07/09/2023 14:15 EDT No organisms seen. Performing Locations R1: This test was performed at: [facility], [address] [place] [address], [facility] , , [facility] Comment on above: Performed By: #### [id number] #### [facility] [address] [place] [address] 07-10-2023 Note Admission and Discha rge Information [...] (08/04/2015), Abdominal hernia. 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 He was subsequently admitted to [facility] with acute cellulitis of the right leg secondary to infected right ankle wound and suspected erysipelas. He was also admitted with Acute kidney injury secondary to ATN from infection, meloxicam, hydrochlorothiazide and lisinopril.. He was treated with IV Invanz, IV vancomycin, IV fluid, as needed pain medications. He was seen in consultation by the infectious disease specialist as well as the director of graduate medical education. Coil Assembler did a bedside incision and drainage of [...] Patient to follow-up with infectious disease specialist, director of graduate medical education as well as his primary care physician accordingly. He will also follow-up with the vascular surgeon. New medication: Zyvox 600 mg twice daily x 2 weeks. Medications discontinued: Hydrochlorothiazide Meloxicam Services Consulted Consult to Infectious Disease Physician - Ordered -- 07/09/23 17:27:00 EDT, Cellulitis right leg, Consult and Co-manage Consult to Coil Assembler - Ordered -- 07/06/23 16:50:00 EDT, RLE [...] Marie Mccullough 07/23/2023 (more content not included)... [facility] Comment on above: Result Comment: Elec tronically Signed By: AYANNA SUH, Elvira\.br\Date and Time Signed: 07/10/23 15:51 EDT 07-10-2023 Hospital Discharge instructions Patient Education 07/10/2023 15:22:59 Cellulitis, Adult, Slsk-py-Vziy Cellulitis, Adult Cellulitis is a skin infection. [...] Follow these instructions at home: Medicines Take ohpy-mig-juozvxt and prescription medicines only as told by [...] provider. Document Revised: 11/17/2021 Document Reviewed: 11/17/2021 [employer] Patient Education 2022 [employer]. Follow Up Care 07/06/2023 12:01:51 With:Dixie Brandon Address: [address] [place] [address]- Business (1) When:1 to 2 weeks Comments:Call for followup appointment With:Jean Marie Mccullough Address: [address] [place] [address] Business (1) When:07/23/2023 13:45:00 With:Michelle Figueroa Address: [address] [facility] [place] [address]- Business (1) When:07/17/2023 10:00:00 With:Jhonatan Mariscal Address: [facility] [address] [place] [address]- When:07/11/2023 08:20:00 [facility] 07-10-2023 Evaluation + Plan note Extrac des from: Title:Discharge Note Author:AYANNA SUH, Mbanefo D ate:07/10/23 Discharged to - Home independently Discharge [...] Mccullough 07/23/2023 01:45 PM EDT [address] [place] [address]- Business (1) Additional Instructions: Michelle Figueroa 07/17/2023 10:00 AM EDT [address] [place] [address]- Business (1) Additional Instructions: Jhonatan Mariscal 07/11/2023 08:20 AM EDT [facility] [address] [place] [address]- Additional Instructions: Dixie Brandon Within 1 to 2 weeks [address] [place] [address]- Business (1) Additional Instructions: Call for followup appointment Cellulitis, Adult, [id number] Extracted from: Title:Infection Admission H&P * Author:Jean [...] with IV Invanz and vancomycin. Seen by director of graduate medical education and had a bedside incision and drainage of blister/bullae. Status post wound dressing. MRI does not show any deep tissue abscess of bone involvement/osteomyelitis. Infectious disease consult pending. Vascular surgery consult can be done as outpatient. Ordered: [facility] Hospital Care/Day Moderate 35 Minutes [id number] 2. Wound of right ankle (S91.001A: Unspecified open wound, right ankle, initial encounter) Continue wound dressings. Wound cultures so far not isolating any organisms. Ordered: [facility] Hospital Care/Day Moderate 35 Minutes [id number] Wound Culture 3. Acute kidney injury (N17.9: Acute kidney failure, unspecified) Acute kidney injury secondary to ATN from above infection, diuretics and lisinopril. Improved. Lisinopril and hydrochlorothiazide suspended. Treated with IV fluid. Ordered: [facility] Hospital Care/Day Moderate 35 Minutes [id number] 4. Obese (E66.9: Obesity, unspecified) Recommend therapeutic lifestyle modification changes. Ordered: [facility] Care/Day Moderate 35 Minutes [id number] 5. HTN (hypertension) (I10: Essential (primary) hypertension) [...] made to ensure accuracy. However inadvertent computerized retail assistant store manager errors may be present. Elvira Waller. [...] Infuse over 30 minute(s), 07/09/23 12:12:00 EDT [facility] Hospital Care/Day Moderate 35 Minutes [id number] 2. Wound of right ankle (S91.001A: Unspecified open wound, right ankle, initial encounter) Present during this admission. Wound culture. MRI of the foot pending. Ordered: ertapenem + Sodium Chloride 0.9% intravenous solution 50 mL, 500 mg = 0.5 EA, IV Piggyback, Daily, Routine, Start date 07/10/23 9:00:00 EDT, 100 mL/hr, Infuse over 30 minute(s), 07/09/23 12:12:00 EDT [facility] Hospital Care/Day Moderate 35 Minutes [id number] Wound Culture 3. Acute kidney injury (N17.9: Acute kidney failure, unspecified) Acute kidney injury secondary to ATN from above infection, diuretic and lisinopril. Improved. Avoid nephrotoxic drugs. Lisinopril and hydrochlorothiazide suspended. Treated with IV fluid. Ordered: [facility] Hospital Care/Day Moderate 35 Minutes [id number] 4. Obese (E66.9: Obesity, unspecified) Recommend therapeutic lifestyle modification changes. Ordered: [facility] Care/Day Moderate 35 Minutes [id number] 5. HTN (hypertension) (I10: Essential (primary) hypertension) [...] made to ensure accuracy. However inadvertent computerized retail assistant store manager errors may be present. Elvira Waller. Hospitalist. Other obstructive and reflux uropathy (N13.8: Other obstructive and reflux uropathy) Orders: ertapenem + Sodium Chloride 0.9% intravenous solution 50 mL, 500 mg = 0.5 EA, IV Piggyback, Once, Stop date 07/09/23 13:00:00 EDT, Routine, Start date 07/09/23 13:00:00 EDT, 100 mL/hr, Infuse over 30 minute(s), 07/09/23 12:13:00 EDT Extracted from: Title:Progress/SOAP Note Author:Surjit Cyndy Date:07/08/23 68-year-old male admitted fo r cellulitis [...] control as needed Last for a.m. Ordered: [facility] Care/Day Moderate 35 Minutes [id number] 2. Acute kidney injury (N17.9: Acute kidney failure, unspecified) Serum creatinine down to 1.4 FENa from yesterday was 1.8; may be intrinsic and he was taking HCTZ, lisinopril and Mobic in the outpatient setting which all have been held Ordered: [facility] Care/Day Moderate 35 Minutes [id number] Orders: Basic Metabolic Panel eGFR Extra Lav [...] is complete. Extracted from: Title:Progress/SOAP Note Author:Surjit Cyndy Date:07/07/23 68-year-old male admitted fo r cellulitis [...] Ordered: Initial Hospital Care/Day Moderate 55 Minutes [id number] 2. Acute kidney injury (N17.9: Acute kidney failure, unspecified) FENa 1.8 which may be intrinsic; patient was taking HCTZ and lisinopril which had been held and he was also taking Mobic Creatinine down to 1.6 Continue to trend Ordered: Initial Hospital Care/Day Moderate 55 Minutes [id number] Orders: acetaminophen, 650 mg = 2 tab(s), [...] Diet CBC w/ Auto Diff Consult to Coil Assembler Creatinine Urine eGFR Notify Provider Vital Signs [...] from: Title:Admission H & P Author:Lamar Eddy DO. Date:07/06/23 68-year-old male admitted fo r cellulitis [...] Diet CBC w/ Auto Diff Consult to Coil Assembler Creatinine Urine Notify Provider Vital Signs Notify [...] for inpatient status Extracted from: Title:ED Note Author:Franki Elias PA-C te:07/06/23 1. Cellulitis of right leg ( [...] Appointments Appointment Date:09/12/2023 03:30:00 PM Scheduled Provider:Taras BURDICK MD Location:[facility] Appointment Type:URO Office Visit Diagnostic Tests Pending * Vancomycin Level Trough 07/12/23 Future Scheduled Tests Laboratory* PSA Total 11/21/22 * Basic Metabolic Panel 07/17/23 Radiology* XR Abdomen 1 View 11/21/22 [facility]05-17-2024 NoteBasic Information Admit Date/Time:07/06/2023 14:38 Chief Complaint [...] initially his leg on Sunday felt like odok-frf-kxgtswj. 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 He quit smoking 43 years ago [...] 12:34:00) Lymph Auto: 18.3 % (07/06/23 12:34:00) [place] Auto: 8.3 % (07/06/23 12:34:00) Eos Auto: 2.8 % (07/06/23 12:34:00) Basophil Auto: 0.4 % (07/06/23 12:34:00) Neutro Ab (more content not included)...[facility]Comment on [facility]:Result Comment: Electronically Signed By: Dwight Eddy DO.br\Date and Time Signed: 07/06/23 17:41 [id number] History of Present illness Narrative* Gerald Padilla [...] History: Procedure Laterality Date HERNIA REPAIR 2012 NE REMOVAL OF KIDNEY STONE 2016 x3 Allergies [...] [facility] encounter[facility] [id number] History of Present illness Narrative* Carlotta Morrison [...] History: Procedure Laterality Date HERNIA REPAIR 2013 NE REMOVAL OF KIDNEY STONE 2016 x3 FAMILY [...] Dr. Michelle Figueroa. documented in this encounterSaint [facility]'s Health [id number] Hospital Discharge instructions Patient Education 11/21/2021 09:20:07 Kidney Stones, Jxfb-vi-Nnmr Kidney Stones Kidney stones are rock-like masses [...] Follow these instructions at home: Medicines Take qejz-rmd-afgghuo and prescription medicines only as told by [...] 07/24/2008 Document Revised: 06/24/2019 Document Reviewed: 06/24/2019 [employer] Patient Education 2019 [employer]. Follow Up Care 01/24/2021 08:12:17 With:Taras BURDICK MD, URL Address: [address] [place], [place] [address]- When:Within 18 Month(s) Comments:w/psa and kub [facility] Evaluation + Plan note Future Appointments Appointment Date:11/21/2021 08:45:00 AM Scheduled Provider:Taras BURDICK MD Location:[facility] Appointment Type:URO [facility] Future Appointments Appointment Date:05/21/2023 08:00:00 AM Scheduled Provider:Taras BURDICK MD Location:[facility] Appointment Type:URO Office Visit Future Scheduled Tests Laboratory* PSA Total 11/21/22 Radiology* XR Abdomen 1 View 11/21/22 [facility] Evaluation + Plan note Future Appointments Appointment Date:09/12/2023 03:30:00 PM Scheduled Provider:Taras BURDICK MD Location:[facility] Appointment Type:URO Office Visit Future Scheduled Tests Laboratory* PSA Total 11/21/22 Radiology* XR Abdomen 1 View 11/21/22 [facility] Future Appointments Appointment Date:09/12/2023 03:30:00 PM Scheduled Provider:Taras BURDICK MD Location:[facility] Appointment Type:URO Office Visit Future Scheduled Tests Laboratory* PSA Total 11/21/22 * Basic Metabolic Panel 07/17/23 Radiology* XR Abdomen 1 View [facility]21/22 [facility] Future Appointments Appointment Date:09/12/2023 03:30:00 PM Scheduled Provider:Taras BURDICK MD Location:[facility] Appointment Type:URO Office Visit Future Scheduled Tests Laboratory* Basic Metabolic Panel 07/17/23 [facility] Future Appointments Appointment Date:03/19/2024 03:30:00 PM Scheduled Provider:Taras BURDICK MD Location:[facility] Appointment Type:URO Office Visit Future Scheduled Tests Laboratory* PSA Free & Total 01/20/24 * Basic Metabolic Panel 07/17/23 [facility] Evaluation note* Diagnosis Hip pain, bilateral- Primary Pain in joint, pelvic region and thigh Left hip pain Pain in joint, pelvic region and thigh Lumbar spondylosis Lumbosacral spondylosis without myelopathy Degeneration of lumbar intervertebral disc Degeneration of lumbar or lumbosacral 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 syndrome Right hip impingement syndrome documented in this encounter [facility] HealthcareEvaluation note* Diagnosis Bilateral tinnitus- Primary Sensorineural hearing loss (SNHL), bilateral documented in this encounter [facility] HealthcareEvaluation noteNo assessment information availableSelect [facility] [place] Work Phone: Evaluation note* Diagnosis Onset Date Resolution Status Erysipelas of right lower extremity acute [facility] [place] Work Phone: Evaluation note* Diagnosis Onset Date Resolution Status Erysipelas of right lower extremity acute Erysipelas of right lower extremity acute Venous (peripheral) insufficiency [facility] Work Phone: Evaluation note* Diagnosis Onset Date Resolution Status Erysipelas of right lower extremity acute Venous (peripheral) insufficiency acute Erysipelas of right lower extremity [facility] Work Phone: Evaluation note* Diagnosis Plant allergic contact dermatitis- Primary Non-recurrent acute serous otitis media of right ear documented in this encounter [facility] HealthcareEvaluation note* Diagnosis Essential hypertension ([facility]/HCC)- Primary Unspecified essential hypertension Chronic kidney disease, stage 3a (HCC) ([facility]/HCC) Nephrolithiasis Calculus of kidney Degeneration of intervertebral disc of lumbar region with discogenic back pain documented in this encounter [facility] HealthcareHospital course Narrative No data available for this section [facility] No data available for this section [facility] note No data available for this section [facility] Reason for Referral Specialty Diagnoses / Procedures Referred By Contac t Referred To Contact Physical Therapy Diagnoses Hip pain, bilateral Left hip pain Lumbar spondylosis 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 Procedures NE OFFICE/OUTPATIENT NEW HIGH MDM 60 MINUTES Cynthia Cruz, DO [address] [place] [address] Cynthia Ramirez, PT [address] [place] [address] Referral ID Status Reason Start Date Expiration Date Visits Requested Visits Authorized [id number] Authorized Consult and Treat 03/21/2023 09/17/2023 10 10 Summary Purpose Family History No Family History Records Found Advance Directives No Advanced Directives Records Found Advance Directive Response Recorded Date/ Time Advance Directives No July 24 1:47pm Chief Complaint and Reason for Visit Chief Complaint [facility] Chief Complaint [facility] Patient here for a 3 week f/u Reason for Visit Erysipelas of right lower extremity Chief Complaint [facility] Patient here for a 3 week f/u Reason for Visit Erysipelas of right lower extremity Erysipelas of right lower extremity Venous (peripheral) insufficiency Chief Complaint Patient here for a 3 week f/u Patient here for a 3 week f/u Reason for Visit Erysipelas of right lower extremity Venous (peripheral) insufficiency Erysipelas of right lower extremity Additional Source Comments Reason for Visit (unrecogniz ed section and content) Reason Comments Pain Specialty Diagnoses / Procedures Referred By Contac t Referred To Contact Orthopaedic Surgery Diagnoses Left hip pain Michelle Figueroa MD [address] [place] [address] Cynthia Cruz, DO [address] [place] [address] Referral ID Status Reason Start Date Expiration Date V isits Requested Visits Authorized [id number] Closed Specialty Services Required 03/13/2023 09/09/2023 1 1 Reason Comments Tinnitus Audio 03/20/23 Reason Comments Poison Yas Immunizations Patient declined flu vaccine Reason Comments Med Refill Colon Cancer Screening Declines at this time Immunizations Declines at this donn e. Care Teams (unrecognized sec tion and content) Team Status: Active Member Role Status Dates Michelle Figueroa MD Primary Care Provider Active Team Status: Active Member Role Status Dates Michelle Figueroa MD Primary Care Provider Active Start: July 10, 2023 End: July 10, 2023 Jean Marie Mccullough MD Attending Provider Active Sta rt: July 10, 2023 End: July 10, 2023 Team Status: Inactive Member Role Status Dates Jean Marie Mccullough MD Attending Provider Active Sta rt: July 25, 2023 End: July 25, 2023 Michelle Figueroa MD Primary Care Provider Active Start: July 25, 2023 End: July 25, 2023 Team Status: Inactive Member Role Status Dates Michelle Figueroa MD Primary Care Provider Active Start: August 15, 2023 End: August 15, 2023 Jean Marie Mccullough MD Attending Provider Active Sta rt: August 15, 2023 End: August 15, 2023 Team Status: Inactive Member Role Status Dates Michelle Figueroa MD Primary Care Provider Active Start: October 08, 2023 End: October 08, 2023 Jean Marie Mccullough MD Attending Provider Active Sta rt: October 08, 2023 End: October 08, 2023 Team Status: Active Member Role Status Jazmin Figueroa MD Primary Care Provider Active Team Status: Inactive Member Role Status Dates Jean Marie Mccullough MD Attending Provider Active Sta rt: July 25, 2023 End: July 25, 2023 Michelle Figueroa MD Primary Care Provider Active Start: July 25, 2023 End: July 25, 2023 Personnel Name: Michelle Figueroa MD Address: Address: [address] [place], [place] [address]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 Relationship Specialty Start Date End Date Michelle Figueroa MD [address] [place] [address] PCP - General Family Medicine 07/05/22 Michelle Figueroa MD [address] [place] [address] PCP - ACO Reach 07/13/22 (unrecognized sect [...] CREATED AUTHOR AUTHOR'S ORGANIZ ATION 07/11/2023 [facility] DATE CREATED AUTHOR AUTHOR'S ORGANIZ ATION 07/13/2023 [facility] DATE CREATED AUTHOR AUTHOR'S ORGANIZ ATION 07/15/2023 [facility] DATE CREATED AUTHOR AUTHOR'S ORGANIZ ATION 08/23/2023 [facility] DATE CREATED AUTHOR AUTHOR'S ORGANIZ ATION 09/08/2023 [facility] DATE CREATED AUTHOR AUTHOR'S ORGANIZ ATION 09/11/2023 [facility] DATE CREATED AUTHOR AUTHOR'S ORGANIZ ATION 09/12/2023 [facility] DATE CREATED AUTHOR AUTHOR'S ORGANIZ ATION 02/21/2024 [facility] DATE CREATED AUTHOR AUTHOR'S ORGANIZ ATION 03/04/2024 [facility] EPIC Goals (unrecognized section [...] BE BASED ON THE PRIMARY CLINICAL RECORDS. [facility] [employer] [facility] provides no warranty or guarantee of the accuracy or completeness of information in this document.
--- NOTE | 2024-03-21 08:18 | VEIN_ITS ---
[address] [address] Patient Name: JEAN MARIE MAST MRN: [id number] date: 1955 Sex: M Assigned Patient Location: Current Patient Location: Accession/Order Number: [id number] Exam Date: 03/21/2024 08:20 Report Date: 03/21/2024 09:19 At the request of: CYNTHIA BOWMAN Procedure: VC INJ Foam Sclerosant [facility] PROCEDURE: VC INJ Foam Sclerosant [facility] COMPARISON: None. HISTORY: I83.813 - Varicose veins of bilateral lower extremities w... Pre-operative Diagnosis: CEAP class C6 venous insufficiency with pain, tenderness, edema and incompetent right saphenous and varicose vein(s), chronic venous insufficiency right leg secondary to venous incompetence Post-operative Diagnosis: CEAP class C6 venous insufficiency with pain, tenderness, edema and incompetent right saphenous and varicose vein(s), chronic venous insufficiency right leg secondary to venous incompetence Procedure Performed: 1. Ultrasound-guided microfoam chemical ablation with Varithenaregistered 2. Intraoperative ultrasound guidance Anesthesia: None Indications for Procedure: 69-year-old male who presents with a long history of lower extremity pain swelling and varicose veins culminating in venous stasis ulcerations. The patient failed conservative medical therapy including medical compression stockings, exercise and analgesics. Prior procedures include endovenous laser ablation and Microfoam chemical ablation. Multiple incompetent varicosities of the right leg. Duplex scan showed reflux and enlarged diameters up to 6 mm. The patient underwent informed consent including management options where the complications of infection, bleeding, pain, and skin injury were discussed. Particular attention was spent discussing thrombus extension and deep vein thrombosis as well as the possibility of pulmonary embolus and treatment with oral or injectable blood thinners. Procedure: The patient walked to the procedure room. All applicable staff donned appropriate apparel. A procedure timeout was performed to confirm correct patient, correct extremity, correct procedure, and correct room set-up including presence of all applicable supplies, devices, and drugs. A duplex ultrasound, performed by myself confirmed the location and incompetence of branch saphenous varicosities and their course was marked on the skin together with the dilated tributaries. The extent of treatment of the vein and the associated varicosities was determined through ultrasound mapping. The skin was prepped and then punctured with a butterfly needle and advanced under ultrasound guidance. The Varithenaregistered canister was activated and the canister was primed and purged as required in the instructions for use. Varithenaregistered was drawn into a sterile syringe. Following injections were made: 6 cc injected into a 4 mm varicose vein right distal medial lower leg 5 cc injected into a 6 mm varicose vein right distal medial thigh 4 cc injected into a 4 mm varicose vein right mid lateral lower leg Varithenaregistered was slowly administered at 0.5-1.0 cc/second with close observation by ultrasound of its course in the vessels. Total volume utilized was: 15cc. Following administration of Varithenaregistered the leg was elevated and the patient was asked to repeatedly dorsiflex the ankle to limit flow of Varithenaregistered into perforating veins. Once appropriate spasm had been confirmed in the treated veins, the vascular catheter was removed from the leg and light pressure was applied over the puncture site for hemostasis. The common femoral and deep superficial veins were then evaluated for flow and compressibility prior to dressing placement. The lower extremity was kept elevated at 45 degrees above the horizontal and cording material was applied over the saphenous segments and tributaries to allow for eccentric compression over the target vessels including the targeted saphenous vein(s). A multilayer dressing was applied consisting of foam pads, coban and thigh-high 20-30 mm Hg compression elastic support hose were placed on the patient. The leg was lowered only after compression had been applied and the patient was immediately ambulatory. The patient ambulated 10 minutes under supervision and was without apparent concerns at time of release. Post-care instructions include advising patient to keep post-treatment bandages in place and dry for 48 hours, avoid extended periods of inactivity, avoid heavy exercise for one week, wear compression stockings on the treated leg continuously for two weeks, to walk daily for 10 minutes over the next month. The patient was instructed to take an anti-inflammatory medicine as needed and to follow up for color duplex scan of the Saphenous veins, the treated branch saphenous varicosities, the adjacent deep veins, and additional treatment within 7 days. PERSONNEL: Tamy Negrete RN Electronically authenticated by: CYNTHIA BOWMAN Date: 03/21/2024 09:19
== END 2024-03-21 08:59 | disposition home or self-care (01) ==
LOC: VC 07:58
PROVIDERS: PCP Radiology Diagnostic Radiology; Visit Provider Radiology Diagnostic Radiology
DX: I83.813 Varicose veins of bilateral lower extremities with pain (principal)
CPT/HCPCS: 36466

== ENCOUNTER 2024-03-24 07:27 | Outpatient (OUT) | payer MEDICARE, OTHER, SELFPAY ==
--- OUTSIDE RECORDS SUMMARY | 2024-03-24 07:30 | XMS_ITS | CCD ---
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] mGy = . DAP = . Normal [facility] CHEMISTRYOrdered By: SYSTEM SYSTEM on 09-04-2023 Albumin [...] for this result was chemiluminescence using [employer]'s Access Hybritech PSA reagent. Protein [Mass/Vol] 6.9 g/dL Normal 6.0 - 7.8 gm/dL Remisol Chem Sodium [Moles/Vol] 141 mmol/L Normal 135 - 145 mmol/L Remisol Chem Urea nitrogen [Mass/Vol] 23 mg/dL High 5 - 21 mg/dL Remisol Chem Urea nitrogen/Creatinine [Mass ratio] 15 mg/mg Normal 10 - 20 Remisol Chem CMPon 09-04-2023 Albumin [Mass/Vol] 4.0 g/dL Normal 3.3-5.0 [facility] Comment on above: Performed By: #### 2 [id number] #### [facility] Laboratory [address] [place] [address] Albumin/Globulin (S) [Mass conc ratio] 1.4 Normal 1.1-2.2 [facility] Comment on above: Performed By: #### 2 [id number] #### [facility] [address] [place] [address] ALP [Catalytic activity/Vol] 94 Int._Unit/L Normal 21-98 [facility] Comment on above: Performed By: #### 2 [id number] #### [facility] [address] [place] [address] ALT No additional P-5'-P [Catalytic activity/Vol] 16 Int._Unit/L Normal 6-46 [facility] Comment on above: Performed By: #### 2 754223 #### [facility] [address] [place] [address] Anion gap [Moles/Vol] 11 mmol/L Normal 6-[address] [facility] Comment on above: Performed By: #### 2 [id number] #### [facility] [address] [place] [address] AST [Catalytic activity/Vol] 15 Int._Unit/L Normal 5-43 [facility] Comment on above: Performed By: #### 2 254821 #### [facility] [address] [place] [address] Bilirubin [Mass/Vol] 0.4 mg/dL Normal 0.0-1.1 [facility] Comment on above: Performed By: #### 2 467196 #### [facility] [address] [place] [address] Calcium [Mass/Vol] 9.5 mg/dL Normal 8.9-11.1 [facility] Comment on above: Performed By: #### 2 981618 #### [facility] [address] [place] [address] Chloride [Moles/Vol] 110 mmol/L Normal 101-111 [facility] Comment on above: Performed By: #### 2 311627 #### [facility] [address] [place] [address] CO2 [Moles/Vol] 25 mmol/L Normal 21-31 [facility] Comment on above: Performed By: #### 2 970999 #### [facility] [address] [place] [address] Creatinine [Mass/Vol] 1.5 mg/dL High 0.5-1.[address] [facility] Comment on above: Performed By: #### 2 744034 #### [facility] [address] [place] [address] Globulin (S) [Mass/Vol] 2.9 g/dL Normal 1.4-4.0 [facility] Comment on above: Performed By: #### 2 577234 #### [facility] [address] [place] [address] Glucose [Mass/Vol] 108 mg/dL Normal 55-199 [facility] Comment on above: Performed By: #### 2 347951 #### [facility] [address] [place] [address] Potassium [Moles/Vol] 4.6 mmol/L Normal 3.5-5.[address] [facility] Comment on above: Performed By: #### 2 617405 #### [facility] [address] [place] [address] Protein [Mass/Vol] 6.9 g/dL Normal 6.0-7.8 [facility] Comment on above: Performed By: #### 2 106287 #### [facility] [address] [place] [address] Sodium [Moles/Vol] 141 mmol/L Normal 135-145 [facility] Comment on above: Performed By: #### 2 160103 #### [facility] [address] [place] [address] Urea nitrogen [Mass/Vol] 23 mg/dL High 5-21 [facility] Comment on above: Performed By: #### 2 171590 #### [facility] [address] [place] [address] Urea nitrogen/Creatinine [Mass ratio] 15 No Units Normal 10-20 [facility] Comment on above: Performed By: #### 2 387105 #### [facility] [address] [place] [address] PSA Totalon 09-04-2023 Prostate specific Ag [Mass/Vol] 1.3 ng/mL Normal 0.1-3.5 [facility] Comment on above: Result Comment: The concentration of PSA determined by different manufacturers can vary due to differences in assay methods and reagent specificity. Values obtained from different assay methods cannot be used interchangeably. The methodology used for this result was chemiluminescence using [employer]'s Affinity Hybritech PSA reagent. Performed By: #### 1 [id number] #### [facility] [address] [place] [address] eGFRon 09-04-2023 eGFR 51 mL/min/1.73 m2 Low >=59 [facility] Comment on above: Order Comment: Order added by Discern Expert. Performed By: #### 1 [id number] #### [facility] [address] [place] [address] Referrals Officeon 4 Referrals Office [id number]#1.00 TIFF Normal [facility] General Message Officeon General Message Office --- --- --- --- - -- --- --- --- --- From: Archie Hilton To: JEAN MARIE MAST SR Sent: 07/11/23 02:31:06 AM EDT Subject: Discharge Summary Ready to View A summary regarding your recent visit is available in the Documents section of your health record. Normal [facility] Consultation Noteon 07-10-19 Consultation Note [...] Problems Asymptomatic microscopic hematuria / SNOMED CT 8399067825 / Confirmed BPH with urinary obstruction / SNOMED CT 5282726646 / Confirmed kidney stones / SNOMED CT 117090192 / Confirmed Histories Past Medical History: Active kidney stones (757884691) Resolved HTN - Hypertension (2470868798): Resolved. Gout (350420548): Resolved. Family History: Kidney stone Mother Hypertension Mother Diabetes mellitus type 2 Father Procedure history: Cysto, left ureteral stent removal, left RGP, left ureteronephroscopy with Holmium laser ablation, multiple basket extraction of stone,fragments, replacement of JJ ureteral stent under fluoroscopic guidance. on 09/08/2015 at 60 Years. Cystoscopy ([id number]) on 08/04/2015 at 60 Years. Comments: 08/04/2015 17:56 EDT - Maurice ALMAGUER, Marilyn Left Stent Insertion Abdominal hernia (002751664). Physical Examination Vital Signs 07/10/2023 12:01 EDT [...] or not further antibiotics are needed.. Normal [facility] Comment on above: Result Comment: Elec tronically Signed By: Jean Marie Mccullough M.D\.br\Date and Time Signed: 07/10/23 14:43 EDT Discharge Instructionson Discharge Instructions [id number]#1.00 TIFF Normal [facility] Discharge Note-Nursingon Discharge Note-Nursing JEAN [...] Diagnostic Test Results Wound culture Pharmacy Information [facility] Previously Scheduled Follow-Up Appointments Sunday 3:30 PM EDT With: JAMESON SUH, Taras Duncan Where: [facility] Inpatient Clinical Summaryon 07-10-2023 Inpatient Clinical Summary [place] [address] Clinical Summary Person Information: Name: JEAN MARIE MAST SR Age: 68 Years : 1955 Sex: Male PCP: Michelle Figueroa MD Marital Status: Race: White Ethnicity: Non- or Language: Swazi Visit Id: Visit Reason: Cellulitis - Leg; Lower leg pain-swelling; SENT BY DR MARISCAL, LEG PAIN Speciality: Acuity: Enc Type: Inpatient Med Service: Medical Arrival: 07/06/2023 12:00:42 Discharge: Dispo Type: Admitted as IP to this Hosp Address: [address] [place] [address] [facility] [address] Provider Notes: Diagnosis: 1:Cellulitis of right leg; [...] Physician: Aleksandr SUH, Jhonatan Pelletier DPM; Sadia Shannno, Jean Marie Meier Referring Physician: Follow up: With: Address: When: Dixie Brandon [address] [place] [address] Business (1) Within 1 to 2 weeks Comments: Call for followup appointment With: Address: When: Jean Marie Mccullough [address] [place] [address] Business (1) 07/23/2023 1:45 PM With: Address: When: Michelle Figueroa [address] [place] [address] Business (1) 07/17/2023 10:00 AM With: Address: When: Jhonatan MULLER [facility], [address], [place] [address] 07/11/2023 8:20 AM Type Location Start [facility] Office Visit [facility] 09/12/2023 3:30 PM 09/12/2023 3:45 PM Confirmed Patient Education Information: Cellulitis, Adult, Rzog-tk-[id number] Normal [facility] Inpatient Patient Summaryon 07-10-2023 Inpatient Patient Summary [address] [address] Patient Discharge Instructions PERSON INFORMATION [...] up: With: Address: When: Dixie Brandon [address] [place] [address] Business (1) Within 1 to 2 weeks Comments: Call for followup appointment With: Address: When: Jean Marie Mccullough [address] [place] [address] Business (1) 07/23/2023 1:45 PM With: Address: When: Michelle Figueroa [address] [place] [address] Business (1) 07/17/2023 10:00 AM With: Address: When: Jhonatan MULLER - [facility], [facility], [address], [place] [address] 07/11/2023 8:20 AM In the event that this physician does not participate in your insurance network, please consult with your insurance company to find a nearby participating provider. Type Location Start [place] [facility] Office [facility] [place] 09/12/2023 3:30 PM 09/12/2023 3:45 PM Confirmed Comment: PRO Acevedo SR, MICHAEL, have received the attached patient education materials/instructions and have verbalized understanding: Patient Signature Date Clinican/Nurse Signature _ Date HERE ARE THE MEDICATION CHANGES THAT OCCURRED DURING YOUR HOSPITAL STAY New Medications [facility], [address] [facility] [place], [place] [id number], [phone] linezolid (Zyvox 600 mg Tab) 1 Tablets [...] is very import (more content not included)... [facility] Interdisciplinary Note - Justin e Manageron 07-10-2023 Interdisciplinary Note - [employer] Worker Pt is asleep in bed, no family [...] on Linzolid cost checked at pt preferred [facility], with his insurance was over $400, but with good rx will be down to $51.50 and they have in stock currently. Pt updated on cost and pt is ok with cost. Nursing updated on DC plan [facility] Comment on above: Result Comment: Elec tronically Signed By: Chasidy ALMAGUER, Alaina\.joelle\Date and Time Signed: 07/10/23 15:15 EDT Monitor Recordon 07-10-2023 Monitor Record [id number]#1.00 TIFF [facility] Monitor Record [id number]#1.00 TIFF [facility] Progress Note-Physicianon Progress Note-Physician Assessment/Plan 68-year-old [...] with IV Invanz and vancomycin. 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 Status post wound dressing. MRI does not show any deep tissue abscess of bone involvement/osteomyelit is. Infectious disease consult pending. Vascular surgery consult?can be done as outpatient. Ordered: [facility] Care/Day Moderate 35 Minutes 47865 2. Wound of right ankle (S91.001A: Unspecified open wound, right ankle, initial encounter) Continue wound dressings. Wound cultures so far not isolating any organisms. Ordered: [facility] Care/Day Moderate 35 Minutes 24992 Wound Culture 3. Acute kidney injury (N17.9: Acute kidney failure, unspecified) Acute kidney injury?secondary to ATN from above infection, diuretics and lisinopril. Improved. Lisinopril and hydrochlorothiazide suspended. Treated with IV fluid. Ordered: [facility] Care/Day Moderate 35 Minutes 67928 4. Obese (E66.9: Obesity, unspecified) Recommend therapeutic lifestyle modification changes. Ordered: [facility] Care/Day Moderate 35 Minutes 50711 5. HTN (hypertension) (I10: Essential (primary) hypertension) [...] made to ensure accuracy. However inadvertent computerized behavioral psychologist errors may be present. Elvira Waller. Hospitalist. [...] stones Histori (more content not included)... Normal [facility] Comment on above: Result Comment: Elec tronically Signed By: AYANNA SUH, Elvira\.br\Date and Time Signed: 07/10/23 12:09 EDT BMPon 07-09-2023 Anion gap [Moles/Vol] 8 mmol/L Normal 6-[address] [facility] Comment on above: Performed By: #### 2 [id number] #### [facility] [address] [place] [address] Calcium [Mass/Vol] 8.2 mg/dL Low 8.9-11.1 [facility] Comment on above: Performed By: #### 2 259514 #### [facility] [address] [place] [address] Chloride [Moles/Vol] 108 mmol/L Normal 101-111 [facility] Comment on above: Performed By: #### 2 707187 #### [facility] [address] [place] [address] CO2 [Moles/Vol] 27 mmol/L Normal 21-31 [facility] Comment on above: Performed By: #### 2 826314 #### [facility] [address] [place] [facility] [place] [address] Creatinine [Mass/Vol] 1.4 mg/dL High 0.5-1.[address] [facility] Comment on above: Performed By: #### 2 259224 #### [facility] [address] [place] [address] Glucose [Mass/Vol] 109 mg/dL Normal 55-199 [facility] Comment on above: Performed By: #### 2 812507 #### [facility] [address] [place] [address] Potassium [Moles/Vol] 3.8 mmol/L Normal 3.5-5.[address] [facility] Comment on above: Performed By: #### 2 465273 #### [facility] [address] [place] [address] Sodium [Moles/Vol] 139 mmol/L Normal 135-145 [facility] Comment on above: Performed By: #### 2 119131 #### [facility] [address] [place] [address] Urea nitrogen [Mass/Vol] 16 mg/dL Normal 5-21 [facility] Comment on above: Performed By: #### 2 179317 #### [facility] [address] [place] [address] Urea nitrogen/Creatinine [Mass ratio] 11 No Units Normal 10-20 [facility] Comment on above: Performed By: #### 2 961933 #### [facility] [address] [place] [address] CHEMISTRYOrdered By: SYSTEM SYSTEM on 07-09-2023 Vanco [...] Justin e Manageron 07-09-2023 Interdisciplinary Note - [employer] Worker Pt is out of room for MRI [...] information reviewed. CRM following for needs. Normal [facility] Comment on above: Result Comment: [...] Signed by: Serg Beach MD Transcribed by: LAYL Technologist: BENITA Technical Comments Vueway Contrast amount in ml's: 10 Normal [facility] MRI Tibia/Fibula w/ + w/o [...] osteomyelitis, or marrow replacing process. Joint: Large rcgza-ws-mwsv imaging of the knee with degenerative changes with subchondral cystic change, probable tearing of the medial lateral meniscus, probable tearing of ACL, but overall not well evaluated on the large akvth-xm-xbgm. Muscle: Mild diffuse fatty infiltration of the [...] tendons grossly intact within limits of large heuhh-as-ktou. Small amount of increased fluid at the [...] [employer]way Contrast amount in ml's: 10 Normal [facility] Message from Medicareon 06-20 Message from Medicare [id number]#1.00T IFF Normal [facility] Message from Medicare [id number]#1.00T IFF Normal [facility] Monitor Recordon 07-09-2023 Monitor Record [id number]#1.00 TIFF Normal [facility] Monitor Record [id number]#1.00 TIFF Normal [facility] Monitor Record [id number]#1.00 TIFF Normal [facility] Monitor Record [id number]#1.00 TIFF Normal [facility] No Panel InformationOrdered By: Maty Felix on 07-09-2023 GS No organisms seen. [facility] Wound Culture Scant growth of Staphylococcus species coagulase negative [facility] Progress Note - Pharmacyon 0 07-09-2023 [...] questions, please contact the pharmacy at extension [phone]. Age: 68 Years Allergies: aspirin Weight: Last [...] Vanco Pk: 27 mcg/mL (07/08/23 17:11:00) Normal [facility] Progress Note-Physicianon Progress Note-Physician Patient: [...] Problems Asymptomatic microscopic hematuria / SNOMED CT 2751585712 / Confirmed BPH with urinary obstruction / SNOMED CT 6009091129 / Confirmed kidney stones / SNOMED CT 798878817 / Confirmed, Active Problems (3) Asymptomatic microscopic [...] Right tibia (more content not included)... Normal [facility] Comment on above: Result Comment: [...] Infuse over 30 minute(s), 07/09/23 12:12:00 EDT [facility] Care/Day Moderate 35 Minutes 65463 2. Wound of right ankle (S91.001A: Unspecified open wound, right ankle, initial encounter) Present during this admission. Wound culture. MRI of the foot pending. Ordered: ertapenem + Sodium Chloride 0.9% intravenous solution 50 mL, 500 mg = 0.5 EA, IV Piggyback, Daily, Routine, Start date 07/10/23 9:00:00 EDT, 100 mL/hr, Infuse over 30 minute(s), 07/09/23 12:12:00 EDT [facility] Care/Day Moderate 35 Minutes 07543 Wound Culture 3. Acute kidney injury (N17.9: Acute kidney failure, unspecified) Acute kidney injury?secondary to ATN from above infection, diuretic and lisinopril. Improved. Avoid nephrotoxic drugs. Lisinopril and hydrochlorothiazide suspended. Treated with IV fluid. Ordered: [facility] Care/Day Moderate 35 Minutes 03907 4. Obese (E66.9: Obesity, unspecified) Recommend therapeutic lifestyle modification changes. Ordered: [facility] Care/Day Moderate 35 Minutes 02171 5. HTN (hypertension) (I10: Essential (primary) hypertension) [...] made to ensure accuracy. However inadvertent computerized behavioral psychologist errors may be present. Elvira Waller. Hospitalist. [...] High (05 (more content not included)... Normal [facility] Comment on above: Result Comment: Elec tronically Signed By: AYANNA SUH, Elvira\.br\Date and Time Signed: 07/09/23 12:19 EDT RAD - MRI Screening Formon 0 07-09-2023 RAD - MRI Screening Form [id number]#1.0 0TIFF Normal [facility] Vanco Troughon 07-09-2023 Vanco Tr 9 microgram/mL Low 10-20 [facility] Comment on above: Performed By: #### 2 262935 ####[facility] [address] [place] [address] eGFRon 07-09-2023 eGFR 55 mL/min/1.73 m2 Low >=59 [facility] Comment on above: Order Comment: Order added by Discern Expert. Performed By: #### 1 [id number] #### [facility] [address] [place] [address] BMPon 07-08-2023 Anion gap [Moles/Vol] 10 mmol/L Normal 6-[address] [facility] Comment on above: Performed By: #### 2 082844 #### [facility] [address] [place] [address] Calcium [Mass/Vol] 8.2 mg/dL Low 8.9-11.1 [facility] Comment on above: Performed By: #### 2 334975 #### [facility] [address] [place] [address] Chloride [Moles/Vol] 107 mmol/L Normal 101-111 [facility] Comment on above: Performed By: #### 2 125128 #### [facility] [address] [place] [address] CO2 [Moles/Vol] 25 mmol/L Normal 21-31 [facility] Comment on above: Performed By: #### 2 586499 #### [facility] [address] [place] [address] Creatinine [Mass/Vol] 1.4 mg/dL High 0.5-1.[address] [facility] Comment on above: Performed By: #### 2 793718 #### [facility] [address] [place] [address] Glucose [Mass/Vol] 110 mg/dL Normal 55-199 [facility] Comment on above: Performed By: #### 2 042580 #### [facility] [address] [place] [address] Potassium [Moles/Vol] 3.9 mmol/L Normal 3.5-5.[address] [facility] Comment on above: Performed By: #### 2 390072 #### [facility] [address] [place] [address] Sodium [Moles/Vol] 138 mmol/L Normal 135-145 [facility] Comment on above: Performed By: #### 2 104414 #### [facility] [address] [place] [address] Urea nitrogen [Mass/Vol] 21 mg/dL Normal 5-21 [facility] Comment on above: Performed By: #### 2 738678 #### [facility] [address] [place] [address] Urea nitrogen/Creatinine [Mass ratio] 15 No Units Normal 10-20 [facility] Comment on above: Performed By: #### 2 491425 #### [facility] [address] [place] [address] CHEMISTRYOrdered By: SYSTEM SYSTEM on 07-08-2023 Vanco [...] Problems Asymptomatic microscopic hematuria / SNOMED CT 3420802973 / Confirmed BPH with urinary obstruction / SNOMED CT 1223326360 / Confirmed kidney stones / SNOMED CT 248199733 / Confirmed, Active Problems (3) Asymptomatic microscopic [...] his tib-fib (more content not included)... Normal [facility] Comment on above: Result Comment: Elec tronically Signed By: Yanira CLANCY, Jhonatan Richardson\.br\Date and Time Signed: 07/08/23 09:52 EDT Monitor Recordon 07-08-2023 Monitor Record [id number]#1.00 TIFF Normal [facility] Progress Note-Physicianon Progress Note-Physician Subjective [...] control as needed Last for a.m. Ordered: [facility] Care/Day Moderate 35 Minutes 90888 2. Acute kidney injury (N17.9: Acute kidney failure, unspecified) Serum creatinine down to 1.4 FENa from yesterday was 1.8; may be intrinsic and he was taking HCTZ, lisinopril and Mobic in the outpatient setting which all have been held Ordered: [facility] Hospital Care/Day Moderate 35 Minutes 88086 Orders: Basic Metabolic Panel eGFR Extra Lav [...] mg= 1 (more content not included)... Normal [facility] Comment on above: Result Comment: Elec tronically Signed By: Dwight Eddy DO\Date and Time Signed: 07/08/23 12:44 EDT Vanco Peakon 07-08-2023 Vanco Pk 27 microgram/mL Normal 20-40 [facility] Comment on above: Order Comment: pleas e draw one hour after vancomycin infusion is complete Performed By: #### 2 [id number] #### [facility] [address] [place] [address] XR Foot 3+ Views Righton XR Foot [...] mGy = . DAP = . Normal [facility] XR Tib/Fib Right 2 Viewon [...] mGy = . DAP = . Normal [facility] eGFRon 07-08-2023 eGFR 55 mL/min/1.73 m2 Low >=59 [facility] Comment on above: Order Comment: Order added by Discern Expert. Performed By: #### 1 [id number] #### [facility] [address] [place] [address] BMPon 07-07-2023 Anion gap [Moles/Vol] 10 mmol/L Normal 6-[address] [facility] Comment on above: Performed By: #### 2 [id number] #### [facility] [address] [place] [address] Calcium [Mass/Vol] 8.2 mg/dL Low 8.9-11.1 [facility] Comment on above: Performed By: #### 2 [id number] #### [facility] [address] [place] [address] Chloride [Moles/Vol] 106 mmol/L Normal 101-111 [facility] Comment on above: Performed By: #### 2 [id number] #### [facility] [address] [place] [address] CO2 [Moles/Vol] 25 mmol/L Normal 21-31 [facility] Comment on above: Performed By: #### 2 [id number] #### [facility] [address] [place] [address] Creatinine [Mass/Vol] 1.6 mg/dL High 0.5-1.[address] [facility] Comment on above: Performed By: #### 2 [id number] #### [facility] [address] [place] [address] Glucose [Mass/Vol] 103 mg/dL Normal 55-199 [facility] Comment on above: Performed By: #### 2 [id number] #### [facility] [address] [place] [address] Potassium [Moles/Vol] 3.7 mmol/L Normal 3.5-5.[address] [facility] Comment on above: Performed By: #### 2 [id number] #### [facility] [address] [place] [address] Sodium [Moles/Vol] 137 mmol/L Normal 135-145 [facility] Comment on above: Performed By: #### 2 [id number] #### [facility] [address] [place] [address] Urea nitrogen [Mass/Vol] 27 mg/dL High 5-21 [facility] Comment on above: Performed By: #### 2 [id number] #### [facility] [address] [place] [address] Urea nitrogen/Creatinine [Mass ratio] 17 No Units Normal 10-20 [facility] Comment on above: Performed By: #### 2 [id number] #### [facility] [address] [place] [address] CBC w/ Auto Diffon 4 Basophils/100 WBC (Bld) 0.5 % Normal 0.0-2.0 [facility] Comment on above: Performed By: #### 2 [id number] #### [facility] [address] [place] [address] Basophils/Leukocytes Auto (Bld) [Pure # fraction] 0.0 E9/L Normal 0.0-0.2 [facility] Comment on above: Performed By: #### 2 [id number] #### [facility] [address] [place] [address] Eosinophils (Bld) [#/Vol] 0.2 E9/L Normal 0.0-0.5 [facility] Comment on above: Performed By: #### 2 [id number] #### [facility] [address] [place] [address] Eosinophils/100 WBC (Bld) 3.0 % Normal 0.0-8.0 [facility] Comment on above: Performed By: #### 2 804392 #### [facility] [address] [place] [address] Erythrocyte distribution width (RBC) [Ratio] 13.6 % Normal 10.9-14.2 [facility] Comment on above: Performed By: #### 2 [id number] #### [facility] [address] [place] [address] Hematocrit (Bld) [Volume fraction] 40.6 % Normal 37.7-49.0 [facility] Comment on above: Performed By: #### 2 [id number] #### [facility] [address] [place] [address] Hemoglobin (Bld) [Mass/Vol] 13.8 g/dL Normal 13.5-17.5 [facility] Comment on above: Performed By: #### 2 386276 #### [facility] [address] [place] [address] Lymphocytes (Bld) [#/Vol] 1.7 E9/L Normal 1.0-4.0 [facility] Comment on above: Performed By: #### 2 887902 #### [facility] [address] [place] [address] Lymphocytes/100 WBC (Bld) 20.4 % Normal 14.0-50.0 [facility] Comment on above: Performed By: #### 2 191316 #### [facility] [address] [place] [address] MCH (RBC) [Entitic mass] 32.2 pg Normal 27.0-34.0 [facility] Comment on above: Performed By: #### 2 403865 #### [facility] [address] [place] [address] MCHC (RBC) [Mass/Vol] 34.1 g/dL Normal 31.4-36.[address] [facility] Comment on above: Performed By: #### 2 586396 #### [facility] [address] [place] [address] MCV (RBC) [Entitic vol] 94.5 fL Normal 80.0-100.0 [facility] Comment on above: Performed By: #### 2 645922 #### [facility] [address] [place] [address] Monocytes (Bld) [#/Vol] 0.5 E9/L Normal 0.2-1.0 [facility] Comment on above: Performed By: #### 2 075529 #### [facility] [address] [place] [address] Neutrophils (Bld) [#/Vol] 5.7 E9/L Normal 2.0-7.5 [facility] Comment on above: Performed By: #### 2 623749 #### [facility] [address] [place] [address] Neutrophils/100 WBC (Bld) 69.7 % Normal 36.0-75.0 [facility] Comment on above: Performed By: #### 2 652179 #### [facility] [address] [place] [address] Platelet mean volume (Bld) [Entitic vol] 8.6 fL Normal 6.4-10.8 [facility] Comment on above: Performed By: #### 2 [id number] #### [facility] [address] [place] [address] Platelets (Bld) [#/Vol] 205.0 E9/L Normal 150.0-500.0 [facility] Comment on above: Performed By: #### 2 996663 #### [facility] [address] [place] [address] RBC (Bld) [#/Vol] 4.3 E12/L Normal 4.3-5.9 [facility] Comment on above: Performed By: #### 2 745700 #### [facility] [address] [place] [address] WBC corrected for nucl RBC Auto (Bld) [#/Vol] 8.1 E9/L Normal 4.0-11.0 [facility] Comment on above: Performed By: #### 2 159061 #### [facility] [address] [place] [address] CHEMISTRYOrdered By: SYSTEM SYSTEM on 07-07-2023 Anion [...] Monitor Recordon 07-07-2023 Monitor Record [id number]#1.00 TIFF Normal [facility] Monitor Record [id number]#1.00 TIFF Normal [facility] Monitor Record [id number]#1.00 TIFF Normal [facility] Monitor Record [id number]#1.00 TIFF Normal [facility] Monitor Record [id number]#1.00 TIFF Normal [facility] Monitor Record [id number]#1.00 TIFF Normal [facility] Progress Note-Physicianon Progress Note-Physician Subjective [...] 05:35:00) Lymph Auto: 20.4 % (07/07/23 05:35:00) [place] Auto: 6.4 % (07/07/23 05:35:00) Eos Auto: 3 % (07/07/23 05:35:00) Basophil Auto: 0.5 % (07/07/23 05:35:00) Neutro Absolute: 5.7 E9/L (07/07/23 05:35:00) Lymph Absolute: 1.7 E9/L (07/07/23 05:35:00) [place] Absolute: 0.5 E9/L (07/07/23 05:35:00) Eos Absolute: [...] Ordered: Initial Hospital Care/Day Moderate 55 Minutes 87624 2. Acute kidney injury (N17.9: Acute kidney failure, unspecified) FENa 1.8 which may be intrinsic; patient was taking HCTZ and lisinopril which had been held and he was also taking Mobic Creatinine down to 1.6 Continue to trend Ordered: Initial Hospital Care/Day Moderate 55 Minutes [address]3813 Orders: acetaminophen, 650 mg = 2 tab(s), Tab, Oral, q6hr PRN Pain, Routine, Start date 07/06/23 16:49:00 EDT, 07/06/23 16:49:00 EDT Al hydroxide/Mg hydroxide/simethicone, 30 mL, Susp-Or (more content not included)... Normal [facility] Comment on above: Result Comment: Elec tronically Signed By: Dwight Eddy DO\.br\Date and Time Signed: 07/07/23 14:55 EDT eGFRon 07-07-2023 eGFR 47 mL/min/1.73 m2 Low >=59 [facility] Comment on above: Order Comment: Order added by Discern Expert. Performed By: #### 1 [id number] #### [facility] [address] [place] [address] BMPon 07-06-2023 Anion gap [Moles/Vol] 12 mmol/L Normal 6-[address] [facility] Comment on above: Performed By: #### 2 [id number] #### [facility] [address] [place] [address] Calcium [Mass/Vol] 8.6 mg/dL Low 8.9-11.1 [facility] Comment on above: Performed By: #### 2 972712 #### [facility] [address] [place] [address] Chloride [Moles/Vol] 104 mmol/L Normal 101-111 [facility] Comment on above: Performed By: #### 2 620735 #### [facility] [address] [place] [address] CO2 [Moles/Vol] 25 mmol/L Normal 21-31 [facility] Comment on above: Performed By: #### 2 626646 #### [facility] [address] [place] [address] Creatinine [Mass/Vol] 1.8 mg/dL High 0.5-1.[address] [facility] Comment on above: Performed By: #### 2 562758 #### [facility] [address] [place] [address] Glucose [Mass/Vol] 111 mg/dL Normal 55-199 [facility] Comment on above: Performed By: #### 2 770558 #### [facility] [address] [place] [address] Potassium [Moles/Vol] 3.5 mmol/L Normal 3.5-5.[address] [facility] Comment on above: Performed By: #### 2 529209 #### [facility] [address] [place] [address] Sodium [Moles/Vol] 137 mmol/L Normal 135-145 [facility] Comment on above: Performed By: #### 2 658203 #### [facility] [address] [place] [address] Urea nitrogen [Mass/Vol] 29 mg/dL High 5-21 [facility] Comment on above: Performed By: #### 2 373292 #### [facility] [address] [place] [address] Urea nitrogen/Creatinine [Mass ratio] 16 No Units Normal 10-20 [facility] Comment on above: Performed By: #### 2 795879 #### [facility] [address] [place] [address] CBC w/ Auto Diffon 4 Basophils/100 WBC (Bld) 0.4 % Normal 0.0-2.0 [facility] Comment on above: Performed By: #### 2 859115 #### [facility] [address] [place] [address] Basophils/Leukocytes Auto (Bld) [Pure # fraction] 0.0 E9/L Normal 0.0-0.2 [facility] Comment on above: Performed By: #### 2 967188 #### [facility] [address] [place] [address] Eosinophils (Bld) [#/Vol] 0.2 E9/L Normal 0.0-0.5 [facility] Comment on above: Performed By: #### 2 843126 #### [facility] [address] [place] [address] Eosinophils/100 WBC (Bld) 2.8 % Normal 0.0-8.0 [facility] Comment on above: Performed By: #### 2 189429 #### [facility] [address] [place] [address] Erythrocyte distribution width (RBC) [Ratio] 13.9 % Normal 10.9-14.2 [facility] Comment on above: Performed By: #### 2 [id number] #### [facility] [address] [place] [address] Hematocrit (Bld) [Volume fraction] 46.2 % Normal 37.7-49.0 [facility] Comment on above: Performed By: #### 2 684446 #### [facility] [address] [place] [address] Hemoglobin (Bld) [Mass/Vol] 15.6 g/dL Normal 13.5-17.5 [facility] Comment on above: Performed By: #### 2 618544 #### [facility] [address] [place] [address] Lymphocytes (Bld) [#/Vol] 1.3 E9/L Normal 1.0-4.0 [facility] Comment on above: Performed By: #### 2 571653 #### [facility] [address] [place] [address] Lymphocytes/100 WBC (Bld) 18.3 % Normal 14.0-50.0 [facility] Comment on above: Performed By: #### 2 819282 #### [facility] [address] [place] [address] MCH (RBC) [Entitic mass] 32.2 pg Normal 27.0-34.0 [facility] Comment on above: Performed By: #### 2 [id number] #### [facility] [address] [place] [address] MCHC (RBC) [Mass/Vol] 33.7 g/dL Normal 31.4-36.[address] [facility] Comment on above: Performed By: #### 2 625322 #### [facility] [address] [place] [address] MCV (RBC) [Entitic vol] 95.3 fL Normal 80.0-100.0 [facility] Comment on above: Performed By: #### 2 [id number] #### [facility] [address] [place] [address] Monocytes (Bld) [#/Vol] 0.6 E9/L Normal 0.2-1.0 [facility] Comment on above: Performed By: #### 2 360298 #### [facility] [address] [place] [address] Neutrophils (Bld) [#/Vol] 4.9 E9/L Normal 2.0-7.5 [facility] Comment on above: Performed By: #### 2 666806 #### [facility] [address] [place] [address] Neutrophils/100 WBC (Bld) 70.2 % Normal 36.0-75.0 [facility] Comment on above: Performed By: #### 2 365777 #### [facility] [address] [place] [address] Platelet 189.0 E9/L Normal 150.0-500.0 [facility] Comment on above: Performed By: #### 2 847242 #### [facility] [address] [place] [address] Platelet mean volume (Bld) [Entitic vol] 8.5 fL Normal 6.4-10.8 [facility] Comment on above: Performed By: #### 2 493087 #### [facility] [address] [place] [address] RBC (Bld) [#/Vol] 4.8 E12/L Normal 4.3-5.9 [facility] Comment on above: Performed By: #### 2 239342 #### [facility] [address] [place] [address] WBC corrected for nucl RBC Auto (Bld) [#/Vol] 7.0 E9/L Normal 4.0-11.0 [facility] Comment on above: Performed By: #### 2 338302 #### [facility] [address] [place], [place] [address] CHEMISTRYOrdered By: SYSTEM SYSTEM on 07-06-2023 Sodium [Moles/Vol] 127 mmol/L Invalid Interpretation Code Remisol Chem U Creatinine 93.5 mg/dL Invalid Interpretation Code Remisol Chem Lactic Acid Lvl 1.0 mmol/L Normal 0.5 - 2.2 mmol/L Remisol Chem Consent for Treatmenton 06-19 Consent for Treatment [id number]#1.00T IFF Normal [facility] ED Clinical Summaryon 2023 ED Clinical Summary (Inserted Image. Denisha ble to display) [address] [address] ED Clinical Summary Person Information Name: JEAN MARIE MAST SR/[facility]Hugh Age: 68 Years : 1955 Sex: Male Language: Swazi PCP: Michelle Figueroa MD Marital Status: MRN: Visit Id: Visit Reason: Cellulitis - Leg; Lower leg pain-swelling; SENT BY DR MARISCAL, LEG PAIN Speciality: Acuity: 3 Enc Type: Inpatient Med Service: Emergency Arrival: 07/06/2023 12:00:42 Discharge: LOS: 000 03:16 Checkin: 07/06/2023 12:00:42 Checkout: 07/06/2023 15:16:48 Dispo Type: Admitted as IP to this [facility] EVENTS: Event Name Event Status Request [...] 14:38:53 Patient Care Request 07/06/2023 14:38:53 ADDRESS: [address] [place] [id number] [facility] DOC NOTES: MEDICAL INFORMATION: Prescriptions Given: [...] up: DIAGNOSIS: 1:Cellulitis of right leg Normal [facility] ED Note-Physicianon 07-06-19 ED Note-Physician [...] made to ensure accuracy, however, inadvertently computerized behavioral psychologist mistakes may be present. Appropriate healthcare PPE [...] mg= 1 (more content not included)... Normal [facility] Comment on above: Result Comment: Elec tronically Signed By: Franki Elias PA-C\.br\Date and Time Signed: 07/06/23 14:52 EDT\.br\Electronically Co-Signed By: Arnel Modi DO\.br\Date and Time Co-Signed: 07/06/23 15:54 EDT ED Patient Education Noteon 07-06-2023 ED Patient Education Note Normal [facility] ED Patient Summaryon 024 ED Patient Summary (Inserted Image. Denisha ble to display) [place] [address] Patient Discharge Instructions Person Information Name: JEAN MARIE MAST SR Age: 68 Years Arrival Date: 07/06/2023 12:00:42 Discharge Diagnosis: 1:Cellulitis of right leg Primary Care Physician: Michelle Figueroa MD Provider Information Primary Provider: Arnel Modi DO Advanced Vacation Planner:Franki Elias PA-C The exam and treatment you received in the Emergency Department were for an urgent problem and are not intended as complete care. It is important that you follow up with a doctor, nurse practitioner, or physician?s certified surgical tech/first assistant for ongoing care. If your symptoms become worse or you do not improve as expected and you are unable to reach your usual health care provider, you should return to the Emergency Department. We are available 24 hours a day. [place] JEAN MARIE has been given the [...] opioids can be used to help relieve [id number] pain and are often prescribed following a [...] be struggling with addiction, tell your health chiropractic care and ask for guidance or call [facility] National Helpline at 5-056-716-ZNER. l Source: [place] Department of Health and Human Services/Center for Disease Control & Prevention [facility] Medications Given: Medicati (more content not included)... Normal [facility] HEMATOLOGYOrdered By: SYSTEM SYSTEM on [...] Lactic Acid Lvl 1.0 mmol/L Normal 0.5-2.2 [facility] Comment on above: Performed By: #### 2 [id number] #### [facility] [address] [place] [address] No Panel InformationOrdered By: ANGPROCESSSERVER MICROBIOLOGY on 07-06-2023 Blood Culture Charcoal No growth at 4 da ys. Final to follow at 7 days. [facility] Blood Culture Charcoal No growth at 4 da ys. Final to follow at 7 days. [facility] Progress Note - Pharmacyon 0 07-06-2023 [...] questions please contact the pharmacy at extension [phone]. Age: 68 Years Allergies: aspirin Weight: Last [...] 12:34:00) Lymph Auto: 18.3 % (07/06/23 12:34:00) [place] Auto: 8.3 % (07/06/23 12:34:00) Eos Auto: 2.8 % (07/06/23 12:34:00) Basophil Auto: 0.4 % (07/06/23 12:34:00) Neutro Absolute: 4.9 E9/L (07/06/23 12:34:00) Lymph Absolute: 1.3 E9/L (07/06/23 12:34:00) [place] Absolute: 0.6 E9/L (07/06/23 12:34:00) Eos Absolute: [...] Acid Lvl: 1 mmol/L (07/06/23 12:34:00) Normal [facility] U Creatinineon 07-06-2023 U Creatinine 93.5 mg/dL Invalid Interpretation Code [facility] Comment on above: Performed By: #### 2 [id number] #### [facility] [address] [place] [address] U Sodiumon 07-06-2023 Sodium [Moles/Vol] 127 mmol/L Invalid Interpretation Code [facility] Comment on above: Performed By: #### 2 [id number] #### [facility] [address] [place] [address] URINALYSISOrdered By: Vine Girls SYSTEM on 07-06-2023 Bilirubin Ql (U) Negative Normal Negativemg/ d L FT UA Auto SS Clarity (U) Clear (07/06/23 8:20 PM) Normal Clear [facility] UA Auto SS Color (U) Light-Yellow 1 (07/06/23 8:20 PM) Normal Yellow [facility] UA Auto SS Comment on above: Interpretive Data: M icroscopic readings are only performed on those samples that meet specific criteria set forth by [facility]. Glucose Ql (U) Negative [...] Desc Random Urine (07/06/23 8:20 PM) Normal [facility] UA Auto SS Work Phone: Urinalysis with Microon 06-19 Bilirubin Ql (U) Negative Normal Negative [facility] Comment on above: Performed By: #### 4 [id number] #### [facility] [address] [place] [address] Clarity (U) Clear Normal Clear [facility] Comment on above: Performed By: #### 4 [id number] #### [facility] [address] [place] [address] Color (U) Light-Yellow Normal Yellow [facility] Comment on above: Result Comment: Micr oscopic readings are only performed on those samples that meet specific criteria set forth by [facility]. Performed By: #### 4 [id number] #### [facility] [address] [place] [address] Glucose Ql (U) Negative Normal Negative [facility] Comment on above: Performed By: #### 4 [id number] #### [facility] [address] [place] [address] Hemoglobin Auto test strip (U) [Mass/Vol] Negative Normal Negative [facility] Comment on above: Performed By: #### 4 [id number] #### [facility] [address] [place] [address] Ketones Auto test strip Ql (U) Negative Normal Negative [facility] Comment on above: Performed By: #### 4 [id number] #### [facility] [address] [place] [address] Leukocyte esterase Auto test strip Ql (U) Negative Normal Negative [facility] Comment on above: Performed By: #### 4 [id number] #### [facility] [address] [place] [address] Nitrite Auto test strip Ql (U) Negative Normal Negative [facility] Comment on above: Performed By: #### 4 [id number] #### [facility] [address] [place] [address] pH (U) 5.5 [pH] Invalid Interpretation Code 5.0-9.0 [facility] Comment on above: Performed By: #### 4 [id number] #### [facility] [address] [place] [address] Protein Ql (U) Trace Abnormal Negative [facility] Comment on above: Performed By: #### 4 [id number] #### [facility] [address] [place] [address] Specific gravity (U) [Rel density] 1.020 Invalid Interpretation Code 1.005-1.030 [facility] Comment on above: Performed By: #### 4 [id number] #### [facility] [address] [place] [address] Urobilinogen (U) [Mass/Vol] Negative Normal Negative [facility] Comment on above: Performed By: #### 4 [id number] #### [facility] [address] [place] [address] Type of Urine collection method Random Urine Normal [facility] Comment on above: Performed By: #### 4 [id number] #### [facility] [address] [place] [address] eGFRon 07-06-2023 eGFR 41 mL/min/1.73 m2 Low >=59 [facility] Comment on above: Order Comment: Order added by Discern Expert. Performed By: #### 1 [id number] #### [facility] [address] [place] [address] US LE Venous Duplex Righton 07-04-2023 US [...] [place] MD Transcribed by: LALY Technologist: KR [facility] Consent for Treatmenton 06-19 Consent for Treatment [id number] IFF [facility] Physician Orderon 07-03-2023 Physician Order [id number] FF [facility] CHEMISTRYOrdered By: SYSTEM SYSTEM on 11-15-2021 Prostate specific Ag [Mass/Vol] 0.8 ng/mL Normal 0.1 - 3.5 ng/mL [facility] [place] Vital Signs Date Time Vital Sign Value Performing Clinician Facility 02-28-2024 13:00-0500 Body height 185.4 cm Michelle Figueroa MD Work Phone: [facility] 02-28-2024 13:00-0500 Body mass index (BMI) [Ratio] 32.06 kg/m2 Michelle Figueroa MD Work Phone: [facility] 02-28-2024 13:00-0500 Body temperature 98.4 [degF] Michelle Figueroa MD Work Phone: [facility] 02-28-2024 13:00-0500 Body weight 110.22 kg Michelle Figueroa MD Work Phone: [facility] 02-28-2024 13:00-0500 Diastolic blood pressure 82 mm[Hg] Michelle Figueroa MD Work Phone: [facility] 02-28-2024 13:00-0500 Heart rate 95 /min Michelle Figueroa MD Work Phone: [facility] 02-28-2024 13:00-0500 SaO2% (BldA) [Mass fraction] 96 % Michelle Fiugeroa MD Work Phone: [facility] 02-28-2024 13:00-0500 Systolic blood pressure 116 mm[Hg] Michelle Figueroa MD Work Phone: [facility] 12-24-2023 13:39-0500 Body height 185.4 cm Destinee Issa PA Work Phone: [facility] 12-24-2023 13:39-0500 Body mass index (BMI) [Ratio] 30.93 kg/m2 Destinee Issa PA Work Phone: [facility] 12-24-2023 13:39-0500 Body temperature 98.2 [degF] Destinee Issa PA Work Phone: [facility] 12-24-2023 13:39-0500 Body weight 106.32 kg Destinee Issa PA Work Phone: [facility] 12-24-2023 13:39-0500 Diastolic blood pressure 80 mm[Hg] Destinee Issa PA Work Phone: [facility] 12-24-2023 13:39-0500 Heart rate 123 /min Destinee Issa PA Work Phone: [facility] 12-24-2023 13:39-0500 SaO2% (BldA) [Mass fraction] 96 % Destinee Issa PA Work Phone: [facility] 12-24-2023 13:39-0500 Systolic blood pressure 138 mm[Hg] Destinee Issa PA Work Phone: [facility] 11-01-2023 15:23-0400 Body temperature 97.1 [degF] [facility] 11-01-2023 15:23-0400 Diastolic blood pressure 67 mm[Hg] [facility] 11-01-2023 15:23-0400 Heart rate 82 /min [facility] 11-01-2023 15:23-0400 Systolic blood pressure 108 mm[Hg] [facility] 10-08-2023 15:44-0400 Body height 185.42 cm [facility] 10-08-2023 15:44-0400 Body mass index (BMI) [Ratio] 30.3 kg/m2 [facility] 10-08-2023 15:44-0400 Body temperature 98.4 [degF] [facility] 10-08-2023 15:44-0400 Body weight 104.32 kg [facility] 10-08-2023 15:44-0400 Diastolic blood pressure 69 mm[Hg] [facility] 10-08-2023 15:44-0400 Heart rate 85 /min [facility] 10-08-2023 15:44-0400 Systolic blood pressure 128 mm[Hg] [facility] 08-15-2023 14:53-0400 Body height 185.42 cm [facility] 08-15-2023 14:53-0400 Body mass index (BMI) [Ratio] 31.4 kg/m2 [facility] 08-15-2023 14:53-0400 Body temperature 97.5 [degF] [facility] 08-15-2023 14:53-0400 Body weight 108 kg [facility] 08-15-2023 14:53-0400 Diastolic blood pressure 87 mm[Hg] [facility] 08-15-2023 14:53-0400 Heart rate 75 /min [facility] 08-15-2023 14:53-0400 Systolic blood pressure 135 mm[Hg] [facility] 07-25-2023 13:54-0400 Body height 185.42 cm [facility] 07-25-2023 13:54-0400 Body mass index (BMI) [Ratio] 31.6 kg/m2 [facility] 07-25-2023 13:54-0400 Body temperature 98.6 [degF] [facility] 07-25-2023 13:54-0400 Body weight 108.86 kg [facility] 07-25-2023 13:54-0400 Diastolic blood pressure 79 mm[Hg] [facility] 07-25-2023 13:54-0400 Heart rate 52 /min [facility] 07-25-2023 13:54-0400 Systolic blood pressure 142 mm[Hg] [facility] 07-10-2023 13:15-0400 Hourly Rounding Dwight Surjit [facility] 07-10-2023 12:29-0400 Hourly Rounding Dwight Surjit [facility] 07-10-2023 12:29-0400 Promise to Return Dwight Surjit [facility] 07-10-2023 12:01-0400 Heart rate 79 /min Dwight Surjit [facility] 07-10-2023 12:01-0400 SaO2% (BldA) [Mass fraction] 95 % Dwight Surjit [facility] 07-10-2023 12:00-0400 Body temperature 97.34 [degF] Dw[facility] Surjit [facility] 07-10-2023 12:00-0400 Diastolic blood pressure 86 mm[Hg] Dw[facility] Surjit [facility] 07-10-2023 12:00-0400 Mean blood pressure 105 mm[Hg] Dw[facility] Surjit [facility] 07-10-2023 12:00-0400 Systolic blood pressure 142 mm[Hg] [facility] Surjit [facility] 07-10-2023 11:11-0400 Hourly Rounding Dwight Surjit [facility] 07-10-2023 11:11-0400 Promise to Return Dwight Surjit [facility] 07-10-2023 10:08-0400 Promise to Return Dwight Surjit [facility] 07-10-2023 07:51-0400 Heart rate 74 /min Dwight Orellanaer [facility] 07-10-2023 07:51-0400 SaO2% (BldA) [Mass fraction] 94 % Dwight Eddy [facility] 07-10-2023 07:50-0400 Diastolic blood pressure 81 mm[Hg] Dwight Orellanaer [facility] 07-10-2023 07:50-0400 Mean blood pressure 106 mm[Hg] Dwight Orellanaer [facility] 07-10-2023 07:50-0400 Systolic blood pressure 154 mm[Hg] Dwight Eddy [facility] 07-10-2023 07:50-0400 Body temperature 98.24 [degF] Dwight Orellanaer [facility] 07-10-2023 00:10-0400 Blood Pressure Location Dwight Eddy [facility] 07-10-2023 00:10-0400 Body temperature 98.24 [degF] Dwight Orellanaer [facility] 07-10-2023 00:10-0400 Diastolic blood pressure 69 mm[Hg] Dwight Boxcker [facility] 07-10-2023 00:10-0400 Heart rate 83 /min Dwight Orellanaer [facility] 07-10-2023 00:10-0400 Mean blood pressure 92 mm[Hg] Dwight Boxcker [facility] 07-10-2023 00:10-0400 Respiratory rate 18 /min Dwight Boxcker [facility] 07-10-2023 00:10-0400 SaO2% (BldA) [Mass fraction] 93 % Dwight Boxcker [facility] 07-10-2023 00:10-0400 Systolic blood pressure 139 mm[Hg] Dwight Orellanaer [facility] 07-09-2023 19:25-0400 Heart rate 80 /min Dwight Orellanaer [facility] 07-09-2023 19:21-0400 Respiratory rate 16 /min Dwight Boxcker [facility] 07-09-2023 19:21-0400 Body temperature 98.06 [degF] Dwight Boxcker [facility] 07-09-2023 19:21-0400 Mean blood pressure 91 mm[Hg] Dwight Orellanaer [facility] 07-09-2023 05:51-0400 Blood Pressure Location Dwight Surjit [facility] 07-09-2023 05:51-0400 Body temperature 98.24 [degF] Dwight Boxcker [facility] 07-09-2023 05:51-0400 Heart rate 73 /min Dwight Orellanaer [facility] 07-09-2023 05:51-0400 Mean blood pressure 96 mm[Hg] Dwight Boxcker [facility] 07-09-2023 05:51-0400 Respiratory rate 18 /min Dwight Boxcker [facility] 07-09-2023 00:10-0400 Blood Pressure Location Dwight Surjit [facility] 07-09-2023 00:10-0400 Body temperature 98.42 [degF] Dwight Surjit [facility] 07-09-2023 00:10-0400 Heart rate 69 /min Dwight Eddy [facility] 07-09-2023 00:10-0400 Mean blood pressure 91 mm[Hg] Dwight Eddy [facility] 04-02-2023 13:09-0500 Body height 185.4 cm Gerald Padilla MD Work Phone: [facility] 04-02-2023 13:09-0500 Body mass index (BMI) [Ratio] 31.14 kg/m2 Gerald Padilla MD Work Phone: [facility] 04-02-2023 13:09-0500 Body weight 107.05 kg Gerald Padilla MD Work Phone: [facility] 04-02-2023 13:09-0500 Diastolic blood pressure 77 mm[Hg] Gerald Padilla MD Work Phone: [facility] 04-02-2023 13:09-0500 Systolic blood pressure 137 mm[Hg] Gerald Padilla MD Work Phone: [facility] 03-21-2023 14:55-0500 Body height 185.4 cm Cynthia Pocos DO Work Phone: [facility] 03-21-2023 14:55-0500 Body mass index (BMI) [Ratio] 31.14 kg/m2 Cynthia Pocos DO Work Phone: [facility] 03-21-2023 14:55-0500 Body weight 107.05 kg Cynthia Pocos DO Work Phone: [facility] 11-21-2021 08:55-0400 Blood Pressure Location Taras BURDICK [facility] 11-21-2021 08:55-0400 Diastolic blood pressure 111 mm[Hg] Taras BURDICK [facility] 11-21-2021 08:55-0400 Heart rate 73 /min Taras BURDICK [facility] 11-21-2021 08:55-0400 Respiratory rate 16 /min Taras BURDICK [facility] 11-21-2021 08:55-0400 Systolic blood pressure 148 mm[Hg] Taras BURDICK [facility] Encounters Encounter Date Encounter Type Care Provider Facility Start: 04-23-2024 ambulatory Taras BURDICK Facility :[facility] Start: 02-28-2024 End: 02-28-2024 Bamboo flowsheet Michelle [...] Not Available Start: 11-01-2023 End: 11-01-2023 ambulatory [facility] Work Phone: Start: 11-01-2023 End: 11-01-2023 Patient encounter procedure [facility] Work Phone: Start: 10-08-2023 End: 10-08-2023 ambulatory [facility] Work Phone: Start: 10-08-2023 End: 10-08-2023 Patient encounter procedure [facility] Infect[facility] Disease Work Phone: Start: 10-05-2023 End: 10-05-2023 ambulatory MICHELLE FIGUEROA Not Available Start: 09-12-2023 ambulatory Taras BURDICK Facility :[facility] Start: 09-12-2023 End: 09-12-2023 Patient encounter procedure Taras BURDICK [facility] Start: 09-10-2023 End: 09-10-2023 ambulatory JHONATAN MARISCAL Not Available Start: 09-04-2023 End: 09-04-2023 ambulatory Michelle Figueroa [facility] Start: 09-04-2023 End: 09-04-2023 Patient encounter procedure Taras BURDICK [facility] Start: 08-31-2023 End: 08-31-2023 ambulatory MICHELLE FIGUEROA Not Available Start: 08-27-2023 End: 08-27-2023 ambulatory JHONATAN BAUTISTACE Not Available Start: 08-16-2023 End: 08-16-2023 ambulatory MICHELLE FIGUEROA Not Available Start: 08-16-2023 End: 08-16-2023 ambulatory DO Jose Manuel Figueroa Facility:[facility] Start: 08-15-2023 End: 08-15-2023 ambulatory [facility] Work Phone: Start: 08-15-2023 End: 08-15-2023 Patient encounter procedure [facility] Infect[facility] Disease Work Phone: Start: 08-06-2023 End: 08-07-2023 Pre-admission assessment Dixie Brandon [facility] Start: 07-27-2023 End: 07-27-2023 ambulatory JHONATAN D DOLCE Not Available Start: 07-25-2023 End: 07-25-2023 ambulatory [facility] Work Phone: Start: 07-25-2023 End: 07-25-2023 Patient encounter procedure [facility] Work Phone: Start: 07-18-2023 End: 07-18-2023 ambulatory JHONATAN D DOLCE Not Available Start: 07-17-2023 End: 07-17-2023 ambulatory MICHELLE FIGUEROA Not Available Start: 07-11-2023 End: 07-11-2023 ambulatory JHONATAN D DOLCE Not Available Start: 07-10-2023 End: 07-10-2023 Non-patient / Non-visit [facility] Work Phone: Start: 07-06-2023 End: 07-10-2023 Evaluation and management of inpatient Elvira WALLER Facility[facility] Start: 07-06-2023 Emergency department patient visit Arnel Modi Facility:[facility] Start: 07-06-2023 End: 07-10-2023 Evaluation and management of inpatient Dwight Eddy [facility] Start: 07-04-2023 End: 07-04-2023 ambulatory JHONATAN D DOLCE Not Available Start: 07-03-2023 End: 07-03-2023 ambulatory Jhonatan D Dolce Facility[place] Start: 07-03-2023 End: 07-03-2023 Patient encounter procedure Jhonatan Mariscal [facility] Start: 07-03-2023 End: 07-03-2023 ambulatory JHONATAN MARISCAL [...] Available Start: 05-07-2023 End: 05-07-2023 ambulatory JHONATAN MARISCAL Not Available Start: 05-02-2023 End: 05-02-2023 [...] Kev[facility]inez [facility] Start: 04-02-2023 End: 04-02-2023 Office outpatient new 30 minutes Gerald Padilla MD [facility] Comment on above: Bilateral tinnitus ( Primary Dx); Sensorineural hearing loss (SNHL), bilateral Start: 04-02-2023 End: 04-02-2023 ambulatory GERALD PADILLA Not Available Start: 03-30-2023 Chart abstracting Gerald rodriguez MD Work Phone: [facility] Start: 03-26-2023 Chart abstracting Cynthia Garciao s [...] encounter procedure Taras BURDICK [facility] Start: 11-15-2021 End: 11-15-2021 Patient encounter procedure Taras BURDICK [facility] Procedures Date Procedure Procedure Detail Performing [...] procedure 08/29/2024 3:40 PM EDT Office Visit [facility] [address] [place] [id number] Michelle Figueroa MD [address] [place] [id number] [facility] Start: 07-16-2024 Medicare Annual Wellness (AWV) Medicare Annual Wellness (AWV) [facility] Start: 07-16-2024 Pneumococcal Vaccine : 65+ Years (1 of 1 - PCV) Pneumococcal Vaccine: 65+ Years (1 of 1 - PCV) [facility] Comment on above: Postponed from 02/23 (Patient Refused) Start: 03-04-2024 End: 03-04-2024 Patient encounter procedure 03/04/2024 8:00 AM EST [facility] [address] [place] [phone] Michelle Figueroa MD [address] [place] [id number] [facility] Start: 02-28-2024 End: 02-28-2024 Patient encounter procedure 02/28/2024 1:00 PM EST Office Visit [facility] [address] [place] [id number] Michelle Figueroa MD [address] [place] [id number] Arrived [facility] Comment on above: Arrived Start: 02-20-2024 Screening for malign ant neoplasm of colon Colorectal Cancer Screening [facility] Comment on above: Postponed from 02/23 (Patient Refused) Start: 12-24-2023 End: 12-24-2023 Patient encounter procedure 12/24/2023 1:30 PM EST Office Visit [facility] [address] [place] [phone] Destinee Issa, PA [address] [place] [address] Arrived [facility] Comment on above: Arrived Start: 10-21-2023 Influenza vaccination Influenza Vacc ine (#1) [facility] Start: 06-08-2023 Medicare Annual Wellness (AWV) Medicare Annual Wellness (AWV) [facility] Start: 04-23-2023 End: 04-23-2023 Patient encounter procedure 04/23/2023 3:45 PM EST Office Visit [facility] [address] [place] [phone] Cynthia Cruz, DO [address] [place] [address] [facility] Start: 04-02-2023 End: 04-02-2023 ambulatory 04/02/2023 6:00 PM EST Evaluation [facility] [address] [facility] [place] [address] Sherie Hough, PT [address] [facility] [place] [address] [facility] Start: 04-02-2023 End: 04-02-2023 Patient encounter procedure [facility] Comment on above: Arrived Start: 10-20-2022 Influenza vaccination Influenza Vacc ine (#1) [facility] Start: 02-23-2021 Pneumococcal Vaccine : 65+ Years (1 - PCV) Pneumococcal Vaccine: 65+ Years (1 - PCV) [facility] Start: 1955 Screening for malign ant [...] and acellular pertussis vaccine, adsorbed Taras BURDICK [facility] Payers Date Payer Category Payer Unknown [facility] [id number] 2022-Present [address] [facility] [place] [address] [id number] 2021 Private Health Insurance [facility] [id number] .[id number] 5 2021 Medicare [id number] 2021 Medicare [id number]. 1.13.693 .[id number] 2021 Medicare [id number] 1955 Unknown [id number] 2.16.840.1.165168.3.579 .2.727 1956 Unknown [id number] 2.16.840.1.856450.3.579 .2.727 1956 Unknown [id number] 2.16.840.1.754840.3.579 .2.727 1956 Unknown [id number] 2.16.840.1.969774.3.579 .2. 1956 Unknown [id number] 2.16.840.1.829255.3.579 .2. 1956 Unknown [id number] 2.16.840.1.508765.3.579 .2. 1956 Unknown [id number] 2.16.840.1.044615.3.579 .2. 1956 Unknown [id number] 2.16.840.1.529008.3.579 .2.1258 1956 Unknown [id number] 2.16.840.1.437404.3.579 .2.1258 1956 Unknown [id number] 2.16.840.1.798340.3.579 .2.1258 1956 Unknown [id number] 2.16.840.1.005351.3.579 .2.1258 1956 Unknown [id number] 2.16.840.1.165324.3.579 .2.1258 1956 Unknown [id number] 2.16.840.1.998270.3.579 .2.1258 1956 Unknown [id number] 2.16.840.1.968165.3.579 .2.1258 1956 Unknown [id number] 2.16.840.1.231569.3.579 .2.1258 1956 Unknown [id number] 2.16.840.1.867385.3.579 .2.1258 1956 Unknown [id number] 2.16.840.1.279341.3.579 .2.1258 1956 Unknown [id number] 2.16.840.1.178262.3.579 .2.1258 1956 Unknown [id number] 2.16.840.1.473258.3.579 .2.1258 1956 Unknown [id number] 2.16.840.1.246590.3.579 .2.1258 1956 Unknown [id number] 2.16.840.1.876897.3.579 .2.1258 1956 Unknown [id number] 2.16.840.1.075800.3.579 .2.1258 1956 Unknown [id number] 2.16.840.1.606358.3.579 .2.1258 1956 Unknown [id number] 2.16.840.1.368038.3.579 .2.1258 1956 Unknown [id number] 2.16.840.1.284743.3.579 .2.1258 1956 Unknown [id number] 2.16.840.1.293652.3.579 .2.1258 1956 Unknown [id number] 2.16.840.1.825140.3.579 .2.1258 1956 Unknown [id number] 2.16.840.1.402083.3.579 .2.1258 1956 Unknown [id number] 2.16.840.1.096669.3.579 .2.1258 1956 Unknown [id number] 2.16.840.1.682258.3.579 .2.1258 1956 Unknown [id number] 2.16.840.1.863597.3.579 .2.1258 1956 Unknown [id number] 2.16.840.1.275841.3.579 .2.1258 1956 Unknown [id number] 2.16.840.1.166830.3.579 .2.1258 1956 Unknown [id number] 2.16.840.1.502542.3.579 .2.1259 1956 Unknown [id number] 2.16.840.1.206086.3.579 .2.9 1956 Unknown [id number] 2.16.840.1.630401.3.579 .2.9 1956 Unknown [id number] 2.16.840.1.192914.3.579 .2.1258 1956 Unknown [id number] 2.16.840.1.566964.3.579 .2.9 1956 Unknown [id number] 2.16.840.1.737325.3.579 .2.9 1956 Unknown [id number] 2.16.840.1.806862.3.579 .2.1258 1956 Unknown [id number] 2.16.840.1.415386.3.579 .2.1258 1956 Unknown [id number] 2.16.840.1.010327.3.579 .2.9 1956 Unknown [id number] 2.16.840.1.923649.3.579 .2.9 1956 Unknown [id number] 2.16.840.1.470858.3.579 .2.1259 Unknown Regular Insurance [id number] Social History Date Type Detail Facility Start: 11-26-2019 End: 08-27-2023 Tobacco smoking status Ex-smoker (finding) [facility] Tobacco smoking status Never [facility] Start: 03-21-2023 End: 07-16-2023 Sex Assigned At Male [facility] End: 02-19-1989 History of tobacco use Current smoker [facility] End: 02-19-1989 History of tobacco use Cigarette Smoker [facility] Start: 08-12-2022 End: 08-27-2023 Tobacco use and exposure Former smokeless tobacco user [facility] End: 02-19-1989 History of tobacco use Chews Tobacco [facility] Start: 03-21-2023 End: 02-28-2024 Alcohol intake Lifetime non-drinker (finding) [facility] Start: 03-21-2023 End: 07-16-2023 History of Social function [facility] Start: 08-12-2022 Tobacco Comment Last smoked: > 10 years [facility] Start: 08-12-2022 Alcohol Comment Caffeine intak e: 3-4 cups per day soda/pop, energy drinks, tea [facility] Start: 1955 Sex Assigned At Not on file [facility] Start: 07-25-2023 Tobacco smoking status NHIS Never smoked tobacco (finding) [facility] Start: 1955 Sex Assigned At Male [facility] NEGATED: Highlighted rowStart: NINF History of tobacco use Passive smoker [facility] Functional Status Date Assessment Result Facility 07-06-2023 Functional Status N/A [facility] 07-06-2023 Functional Status [facility] 11-21-2021 Functional Status N/A [facility] Clinical Notes 11-21-2021 to 02-28-2024 Michelle [...] of feeling unwell. 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 MEDICATIONS: Current Outpatient Medications Medication Instructions allopurinol [...] (1) Never done documented in this encounter [facility] 12-24-2023 History of Present illness Narrative Images [...] AND PLAN: Assessment & Plan 1. Poison [place] Dermatitis. The patient presents with a rash [...] (1) Never done documented in this encounter [facility] 09-12-2023 Hospital Discharge instructions Patient Education 09/12/2023 [...] treatment? Where to find more information [employer]: www.cancer.org [employer]: www.auanet.org Contact a health care [...] provider. Document Revised: 08/01/2021 Document Reviewed: 08/01/2021 myDocket Patient Education 2022 [employer] Interactive Video. Follow Up Care 11/21/2021 09:22:02 With:JAMESON SUH, Taras Duncan, URL Address: [facility] [employer] [place] [address]- When: Unknown [facility] 07-13-2023 Note Microbiology PROCEDURE: Blood Culture Charcoal [R1] SOURCE: Blood BODY SITE: Hand R COLLECTED DATE/TIME: 07/06/2023 12:25 EDT RECEIVED DATE/TIME: 07/06/2023 13:00 EDT START DATE/TIME: 07/06/2023 13:00 EDT FREE TEXT SOURCE: Curt VARGAS, Franki Elias PA-C, Franki FINAL REPORTS Final Report [] Verified Date/Time: 07/13/2023 15:00 EDT No growth at 7 days. Performing Locations R1: This test was performed at: [facility], [address] [place] [address], [id number] [place] [address], [facility] Comment on above: Performed By: #### [id number] #### [facility] [address] [place] [id number] 07-13-2023 Note Microbiology PROCEDURE: Blood Culture Charcoal [R1] SOURCE: Blood BODY SITE: Arm L COLLECTED DATE/TIME: 07/06/2023 12:34 EDT RECEIVED DATE/TIME: 07/06/2023 13:01 EDT START DATE/TIME: 07/06/2023 13:01 EDT FREE TEXT SOURCE: Curt VARGAS, Franki Elias PA-C, Frakni FINAL REPORTS Final Report [] Verified Date/Time: 07/13/2023 15:00 EDT No growth at 7 days. Performing Locations R1: This test was performed at: [facility], [address] [place] [address], [id number] [place] [address], [facility] Comment on above: Performed By: #### 1 [id number] #### [facility] [address] [place] [id number] 07-11-2023 Note Microbiology PROCEDURE: Wound Culture [R1] [...] Locations R1: This test was performed at: [facility], [address] [place] [address], [facility] , , [facility] Comment on above: Performed By: #### [id number] #### [facility] [address] [place] [address] 07-10-2023 Note Admission and Discha rge Information [...] (08/04/2015), Abdominal hernia. 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 He was subsequently admitted to [facility] with acute cellulitis of the right leg secondary to infected right ankle wound and suspected erysipelas. He was also admitted with Acute kidney injury secondary to ATN from infection, meloxicam, hydrochlorothiazide and lisinopril.. He was treated with IV Invanz, IV vancomycin, IV fluid, as needed pain medications. He was seen in consultation by the infectious disease specialist as well as the music industry internship. Learning Design Specialist did a bedside incision and drainage of [...] Patient to follow-up with infectious disease specialist, music industry internship as well as his primary care physician accordingly. He will also follow-up with the vascular surgeon. New medication: Zyvox 600 mg twice daily x 2 weeks. Medications discontinued: Hydrochlorothiazide Meloxicam Services Consulted Consult to Infectious Disease Physician - Ordered -- 07/09/23 17:27:00 EDT, Cellulitis right leg, Consult and Co-manage Consult to Learning Design Specialist - Ordered -- 07/06/23 16:50:00 EDT, RLE [...] Marie Mccullough 07/23/2023 (more content not included)... [facility] Comment on above: Result Comment: Elec tronically Signed By: AYANNA SUH, Elvira\.br\Date and Time Signed: 07/10/23 15:51 EDT 07-10-2023 Hospital Discharge instructions Patient Education 07/10/2023 15:22:59 Cellulitis, Adult, [place]-pq-Rppl Cellulitis, Adult Cellulitis is a skin infection. [...] Follow these instructions at home: Medicines Take txjn-ihr-qxgqlyx and prescription medicines only as told by [...] provider. Document Revised: 11/17/2021 Document Reviewed: 11/17/2021 myDocket Patient Education 2022 Venvy Interactive Video. Follow Up Care 07/06/2023 12:01:51 With:Dixie Brandon Address: [address] [place] [address]- Business (1) When:1 to 2 weeks Comments:Call for followup appointment With:Jean Marie Mccullough Address: [address] [place] [address] Business (1) When:07/23/2023 13:45:00 With:Michelle Figueroa Address: [address] [facility] [place] [address]- Business (1) When:07/17/2023 10:00:00 With:Jhonatan Mariscal Address: [facility] [address] [place] [address]- When:07/11/2023 08:20:00 [facility] 07-10-2023 Evaluation + Plan note Extrac [...] 01:45 PM EDT [address] [place] [address]- Business (1) Additional Instructions: Michelle Figueroa 07/17/2023 10:00 AM EDT [address] [place] [address]- Business (1) Additional Instructions: Jhonatan Mariscal 07/11/2023 08:20 AM EDT [facility] [address] [place] [address]- Additional Instructions: Dixie Brandon Within 1 to 2 weeks [address] [place] [address]- Business (1) Additional Instructions: Call for followup appointment Cellulitis, Adult, Zhyd-ha-Pjlo Extracted from: Title:Infection Admission H&P * Author:Jean [...] with IV Invanz and vancomycin. 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 Status post wound dressing. MRI does not show any deep tissue abscess of bone involvement/osteomyelitis. Infectious disease consult pending. Vascular surgery consult can be done as outpatient. Ordered: [facility] Hospital Care/Day Moderate 35 Minutes [id number] 2. Wound of right ankle (S91.001A: Unspecified open wound, right ankle, initial encounter) Continue wound dressings. Wound cultures so far not isolating any organisms. Ordered: [facility] Hospital Care/Day Moderate 35 Minutes [id number] Wound Culture 3. Acute kidney injury (N17.9: Acute kidney failure, unspecified) Acute kidney injury secondary to ATN from above infection, diuretics and lisinopril. Improved. Lisinopril and hydrochlorothiazide suspended. Treated with IV fluid. Ordered: [facility] Hospital Care/Day Moderate 35 Minutes [id number] 4. Obese (E66.9: Obesity, unspecified) Recommend therapeutic lifestyle modification changes. Ordered: [facility] Hospital Care/Day Moderate 35 Minutes [id number] 5. HTN (hypertension) (I10: Essential (primary) hypertension) [...] made to ensure accuracy. However inadvertent computerized behavioral psychologist errors may be present. Elvira Waller. Hospitalist. [...] Infuse over 30 minute(s), 07/09/23 12:12:00 EDT [facility] Hospital Care/Day Moderate 35 Minutes [id number] 2. Wound of right ankle (S91.001A: Unspecified open wound, right ankle, initial encounter) Present during this admission. Wound culture. MRI of the foot pending. Ordered: ertapenem + Sodium Chloride 0.9% intravenous solution 50 mL, 500 mg = 0.5 EA, IV Piggyback, Daily, Routine, Start date 07/10/23 9:00:00 EDT, 100 mL/hr, Infuse over 30 minute(s), 07/09/23 12:12:00 EDT [facility] Hospital Care/Day Moderate 35 Minutes [id number] Wound Culture 3. Acute kidney injury (N17.9: Acute kidney failure, unspecified) Acute kidney injury secondary to ATN from above infection, diuretic and lisinopril. Improved. Avoid nephrotoxic drugs. Lisinopril and hydrochlorothiazide suspended. Treated with IV fluid. Ordered: [facility] Hospital Care/Day Moderate 35 Minutes [id number] 4. Obese (E66.9: Obesity, unspecified) Recommend therapeutic lifestyle modification changes. Ordered: [facility] Hospital Care/Day Moderate 35 Minutes [id number] 5. HTN (hypertension) (I10: Essential (primary) hypertension) [...] made to ensure accuracy. However inadvertent computerized behavioral psychologist errors may be present. Elvira Waller. Hospitalist. [...] control as needed Last for a.m. Ordered: [facility] Hospital Care/Day Moderate 35 Minutes [id number] 2. Acute kidney injury (N17.9: Acute kidney failure, unspecified) Serum creatinine down to 1.4 FENa from yesterday was 1.8; may be intrinsic and he was taking HCTZ, lisinopril and Mobic in the outpatient setting which all have been held Ordered: [facility] Hospital Care/Day Moderate 35 Minutes [id number] Orders: Basic Metabolic Panel eGFR Extra Lav [...] Ordered: Initial Hospital Care/Day Moderate 55 Minutes [id number] 2. Acute kidney injury (N17.9: Acute kidney failure, unspecified) FENa 1.8 which may be intrinsic; patient was taking HCTZ and lisinopril which had been held and he was also taking Mobic Creatinine down to 1.6 Continue to trend Ordered: Initial Hospital Care/Day Moderate 55 Minutes [id number] Orders: acetaminophen, 650 mg = 2 tab(s), [...] Diet CBC w/ Auto Diff Consult to Learning Design Specialist Creatinine Urine eGFR Notify Provider Vital Signs [...] Diet CBC w/ Auto Diff Consult to Learning Design Specialist Creatinine Urine Notify Provider Vital Signs Notify [...] Date:09/12/2023 03:30:00 PM Scheduled Provider:Taras BURDICK MD Location:[facility] Appointment Type:URO Office Visit Diagnostic Tests Pending * Vancomycin Level Trough 07/12/23 Future Scheduled Tests Laboratory* PSA Total 11/21/22 * Basic Metabolic Panel 07/17/23 Radiology* XR Abdomen 1 View 11/21/22 [facility]05-17-2024 NoteBasic Information Admit Date/Time:07/06/2023 14:38 Chief [...] initially his leg on Sunday felt like gxag-lbi-wwcftdv. 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 He quit smoking 43 years ago [...] 12:34:00) Lymph Auto: 18.3 % (07/06/23 12:34:00) Latah Auto: 8.3 % (07/06/23 12:34:00) Eos Auto: 2.8 % (07/06/23 12:34:00) Basophil Auto: 0.4 % (07/06/23 12:34:00) Neutro Ab (more content not included)...[facility]Result Comment: Electronically Signed By: Dwight Eddy DO.br\Date and Time Signed: 07/06/23 17:41 [id number] History of Present illness Narrative* Gerald Padilla [...] History: Procedure Laterality Date HERNIA REPAIR 2012 [place] REMOVAL OF KIDNEY STONE 2016 x3 Allergies [...] [facility] [id number] History of Present illness Narrative* Carlotta Morrison [...] History: Procedure Laterality Date HERNIA REPAIR 2013 [facility] REMOVAL OF KIDNEY STONE 2016 x3 FAMILY [...] to Dr. Michelle Figueroa. documented in this encounterParkland Health [id number] Hospital Discharge instructions Patient Education 11/21/2021 09:20:07 Kidney Stones, Lqnh-ks-Bdsw Kidney Stones Kidney stones are rock-like masses [...] Follow these instructions at home: Medicines Take yfpc-oli-geydacr and prescription medicines only as told by [...] 07/24/2008 Document Revised: 06/24/2019 Document Reviewed: 06/24/2019 myDocket Patient Education 2019 Venvy Interactive Video. Follow Up Care 01/24/2021 08:12:17 With:Taras BURDICK MD, URL Address: [address] [place], [place] [address]- When:Within 18 Month(s) Comments:w/psa and kub [facility] Evaluation + Plan note Future Appointments Appointment Date:11/21/2021 08:45:00 AM Scheduled Provider:Taras BURDICK MD Location:[facility] Appointment Type:URO [facility] Future Appointments Appointment Date:05/21/2023 08:00:00 AM Scheduled Provider:Taras BURDICK MD Location:[facility] Appointment Type:URO Office Visit Future Scheduled Tests Laboratory* PSA Total 11/21/22 Radiology* XR Abdomen 1 View 11/21/22 [facility] Evaluation + Plan note Future Appointments Appointment Date:09/12/2023 03:30:00 PM Scheduled Provider:Taras BURDICK MD Location:[facility] Appointment Type:URO Office Visit Future Scheduled Tests Laboratory* PSA Total 11/21/22 Radiology* XR Abdomen 1 View 11/21/22 [facility] Future Appointments Appointment Date:09/12/2023 03:30:00 PM Scheduled Provider:Taras BURDICK MD Location:[facility] Appointment Type:URO Office Visit Future Scheduled Tests Laboratory* PSA Total 11/21/22 * Basic Metabolic Panel 07/17/23 Radiology* XR Abdomen 1 View 11/21/22 [facility] Future Appointments Appointment Date:09/12/2023 03:30:00 PM Scheduled Provider:Taras BURDICK MD Location:[facility] Appointment Type:URO Office Visit Future Scheduled Tests Laboratory* Basic Metabolic Panel 07/17/23 [facility] Future Appointments Appointment Date:03/19/2024 03:30:00 PM Scheduled Provider:Taras BURDICK MD Location:[facility] Appointment Type:URO Office Visit Future Scheduled Tests Laboratory* PSA Free & Total 01/20/24 * Basic Metabolic Panel 07/17/23 [facility] Evaluation note* Diagnosis Hip pain, bilateral- Primary Pain in joint, pelvic region and thigh Left hip pain Pain in joint, pelvic region and thigh Lumbar spondylosis Lumbosacral spondylosis without myelopathy Degeneration of lumbar intervertebral disc Degeneration of lumbar or lumbosacral 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 syndrome Right hip impingement syndrome documented in this encounter [facility] Healthcare[facility] note* Diagnosis Bilateral tinnitus- Primary Sensorineural hearing loss (SNHL), bilateral documented in this encounter [facility] HealthcareEvaluation noteNo assessment information availableOhiohealth Work Phone: Evaluation note* Diagnosis Onset Date Resolution Status Erysipelas of right lower extremity acute [facility] Work Phone: Evaluation note* Diagnosis Onset Date Resolution Status Erysipelas of right lower extremity acute Erysipelas of right lower extremity acute Venous (peripheral) insufficiency [facility] Work Phone: Evaluation note* Diagnosis Onset Date Resolution Status Erysipelas of right lower extremity acute Venous (peripheral) insufficiency acute Erysipelas of right lower extremity [facility] Work Phone: Evaluation note* Diagnosis Plant allergic contact dermatitis- Primary Non-recurrent acute serous otitis media of right ear documented in this encounter [facility] HealthcareEvaluation note* Diagnosis Essential hypertension ([facility]/HCC)- Primary Unspecified essential hypertension Chronic kidney disease, stage 3a (HCC) ([facility]/HCC) Nephrolithiasis Calculus of kidney Degeneration of intervertebral disc of lumbar region with discogenic back pain documented in this encounter [facility] HealthcareHospital course Narrative No data available for this section [facility] No data available for this section [facility] No data available for this section [facility] Reason for Referral Specialty Diagnoses / Procedures Referred By Contac t Referred To Contact Physical Therapy Diagnoses Hip pain, bilateral Left hip pain Lumbar spondylosis 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 Procedures [facility] OFFICE/OUTPATIENT NEW HIGH MDM 60 MINUTES Cynthia Cruz, DO [address] [place] [address] Cynthia Ramirez, PT [address] [place] [address] Referral ID Status Reason Start Date Expiration Date Visits Requested Visits Authorized [id number] Authorized Consult and Treat 03/21/2023 09/17/2023 10 10 Summary Purpose Family History No Family History Records Found Advance Directives No Advanced Directives Records Found Advance Directive Response Recorded Date/ Time Advance Directives No July 24 1:47pm Chief Complaint and Reason for Visit Chief Complaint post [facility] Chief Complaint post [facility] Patient here for a 3 week f/u Reason for Visit Erysipelas of right lower extremity Chief Complaint post [facility] Patient here for a 3 [...] pain Michelle Figueroa MD [address] [place] [address] Cynthia Cruz, DO [address] [place] [address] Referral ID Status Reason Start Date Expiration Date V isits Requested Visits Authorized [id number] Closed Specialty Services Required 03/13/2023 09/09/2023 1 [...] Michelle Figueroa MD Address: Address: [address] [place], [place] [address] Wind Farm Operations Manager Relationship Specialty Start Date End Date Michelle Figueroa MD [address] [place] [address] PCP - General Family Medicine 07/05/22 Michelle Figueroa MD [address] [place] [id number] PCP - ACO Reach 07/13/22 (unrecognized sect [...] CREATED AUTHOR AUTHOR'S ORGANIZ ATION 07/11/2023 [facility] DATE CREATED AUTHOR AUTHOR'S ORGANIZ ATION 07/13/2023 [facility] DATE CREATED AUTHOR AUTHOR'S ORGANIZ ATION 07/15/2023 [facility] DATE CREATED AUTHOR AUTHOR'S ORGANIZ ATION 08/23/2023 [facility] DATE CREATED AUTHOR AUTHOR'S ORGANIZ ATION 09/08/2023 [facility] DATE CREATED AUTHOR AUTHOR'S ORGANIZ ATION 09/11/2023 [facility] DATE CREATED AUTHOR AUTHOR'S ORGANIZ ATION 09/12/2023 [facility] DATE CREATED AUTHOR AUTHOR'S ORGANIZ ATION 02/21/2024 [facility] DATE CREATED AUTHOR AUTHOR'S ORGANIZ ATION 03/04/2024 [facility] dical Specialists EPIC Goals (unrecognized section [...] BE BASED ON THE PRIMARY CLINICAL RECORDS. [facility] [employer] [facility]. provides no warranty or guarantee of the accuracy or completeness of information in this document.
--- NOTE | 2024-03-24 07:37 | VEIN_ITS ---
Patient Name: JEAN MARIE MAST MR#: [id number] : 1955 Exam Date: 03/24/2024 Ordering Doctor: DR CYNTHIA BOWMAN M.D. RADIOLOGY REPORT PROCEDURE: [facility] EST [facility] - OFFICE VISIT FOLLOW UP [facility] PROGRESS NOTES: The patient reports improvement in leg symptoms. There has been interval reduction in varicosities. The patient has followed our recommendations to walk 20-30 minutes once or twice per day since the procedure. Physical exam demonstrates decrease in varicosities of the leg. No remaining varicosities in the treatment. Some persistent edema within the lower right leg and foot. Review of the ultrasound performed the same day demonstrates occlusive thrombus extending throughout the treated vein(s), see separate report, consistent with a successful ablation. No thrombus extending into or beyond the saphenofemoral junction. VEIN/[facility] EST LMTD IMPRESSION: 1. Successful ablation of the right leg treated branch saphenous vein(s). 2. No remaining varicosities and need of treatment at this time. 3. Some persistent edema involving lower right leg, ankle, and foot. PLAN: 1. No additional treatment of patient's veins needed at this time. 2. Referral to lymphedema clinic was discussed with patient. Patient will follow-up with Dr. Doyle and discuss options. Nurse notes, history and physical were reviewed and confirmed, see attached forms. The nurse was present throughout the physical exam and consultation Dictated by: Viktor Hernandez M.D. on 03/24/2024 at 09:59 Approved by: Viktor Hernandez M.D. on 03/24/2024 at 10:02
--- NOTE | 2024-03-24 07:37 | VEIN_ITS ---
Patient Name: JEAN MARIE MAST MR#: [id number] : 1955 Exam Date: 03/24/2024 Ordering Doctor: DR CYNTHIA BOWMAN M.D. RADIOLOGY REPORT PROCEDURE: VC EXT VENOUS RT LMTD COMPARISON: VC EXT VENOUS RT LMTD, 09/28/2023. INDICATIONS: I80.01 - Phlebitis and thrombophlebitis of superficial veins right leg TECHNIQUE: Lower extremity holder scale and Duplex Doppler evaluation of the deep venous system from the inguinal ligament through the calf veins. FINDINGS: REGION: Right lower extremity. THROMBI: Negative for DVT. Chemically induced thrombus in multiple varicose veins in right leg. COMPRESSIBILITY: Non-compressible segments corresponding to thrombus FLOW: Areas of no flow corresponding to thrombus OTHER: Small varicose vein remains in mid lateral/anterior lower leg measures 2.5 mm. CONCLUSION: 1. Successful post ablation occlusion of treated right leg branch saphenous varicosities. Dictated by: Viktor Hernandez M.D. on 03/24/2024 at 07:53 Approved by: Viktor Hernandez M.D. on 03/24/2024 at 09:59
[2024-03-24 11:24] VITALS: BMI 29.3
--- NOTE | 2024-03-24 11:24 | V.VEINS.HP ---
Vital Signs 03/24/24 11:24 Height 6 ft Weight 98 kg BMI 29.3 Varicose Veins Patient in today for follow up ultrasound of right lower extremity following treatment of Varithena/microfoam completed on 03/21/24. Viktor Acevedo MD personally performed the services described in this documentation, as scribed by Esther Sy RDMS in my presence and it is both accurate and complete. Esther Acevedo RDMS, am scribing for, and in the presence of, Dr. Viktor Hernandez and in the presence of the patient. thigh: bilateral, knee: bilateral, calf: bilateral and ankle: bilateral aching, burning, sharp and other (itching) 10 2 years Worsened in recent months: Yes standing and sitting analgesics, elevating extremities and compression stockings Reports erythema, firmness, heaviness, limb pain, edema, leg edema and other (cellulitis, ulcer) History of lower extremity trauma: No Superficial thrombophlebitis: Yes Family history of varicose veins: no Has patient had previous lower extremity venous surgery: No Patient has previously received the following treatment(s) for lower extremity varicose veins: Reports none Does patient have a history of : not applicable Does patient intend to have future pregnancies: not applicable Has patient had lower extremity venous scan with relux testing: Yes Support hose used: Yes Problems walking or doing physical activity: Yes How does it affect you: unable to stand for periods of time Do you walk much: Yes Do you stand much: Yes Medication compliance: good Large amounts of Vitamin K: No Review of Systems ROS Narrative Viktor Acevedo MD personally performed the services described in this documentation, as scribed by Esther Sy RDMS in my presence and it is both accurate and complete. Esther Acevedo RDMS, am scribing for, and in the presence of, Dr. Viktor Hernandez and in the presence of the patient. Status of ROS 10 or more systems reviewed and unremarkable except as noted in history and below Cardiovascular Reports: edema and swelling of feet/ankles Musculoskeletal Reports: extremity pain, extremity swelling, joint pain, joint swelling, muscle cramps and muscle weakness Integumentary/Breast Reports: itching, redness, skin pain, skin tenderness, skin swelling, sores (right distal medial), non-healing lesion (right distal medial) and changes in skin color (hemosiderin staining) Hematologic/Lymphatic Reports: easy bruising PFSH PFSH Medical History (Updated 08/20/23 @ 08:45 by Esther Sy) Phlebitis and thrombophlebitis of superficial vessels of right lower extremity ?I80.01 - Phlebitis and thrombophlebitis of superficial vessels of right lower extremity (ICD-10) Phlebitis and thrombophlebitis of superficial vessels of left lower extremity ?I80.02 - Phlebitis and thrombophlebitis of superficial vessels of left lower extremity (ICD-10) Varicose veins of bilateral lower extremities with pain ?I83.813 - Varicose veins of bilateral lower extremities with pain (ICD-10) Hernia ?K46.9 - Unspecified abdominal hernia without obstruction or gangrene (ICD-10) Abscess ?L02.91 - Cutaneous abscess, unspecified (ICD-10) Cellulitis ?L03.90 - Cellulitis, unspecified (ICD-10) Kidney stone ?N20.0 - Calculus of kidney (ICD-10) Hypertension ?I10 - Essential (primary) hypertension (ICD-10) Gout ?M10.9 - Gout, unspecified (ICD-10) Surgical History (Updated 08/20/23 @ 08:45 by Esther Sy) Status post ablation of incompetent vein using laser ?Z98.890 - Other specified postprocedural states (ICD-10) History of hernia repair ?Z98.890 - Other specified postprocedural states (ICD-10) ?Z87.19 - Personal history of other diseases of the digestive system (ICD-10) Family History (Updated 08/20/23 @ 08:48 by Esther Sy) Father Family history of cancer Family history of diabetes mellitus Mother Family history of hypertension Social History (Updated 08/20/23 @ 08:49 by Esther Sy) Within the past year, how often did you have a drink containing alcohol: monthly or less Smoking status: Former smoker What tobacco products do you use: cigarettes Packs per day: 0.5 Years smoked: 20 Smoking pack-years: 10.00 Smoking quit date/years: >15 years ago Non-prescribed substance use: denies use Meds Home Medications and Allergies Home Medications ?Medication ?Instructions ?Recorded ?Confirmed ?Type Lactobacillus acidophilus 10 100 mmu cells PO DAILY 08/20/23 08/20/23 History billion cell capsule (Probacap) allopurinol 200 mg tablet 200 mg PO DAILY 08/20/23 08/20/23 History amlodipine 5 mg tablet 5 mg PO DAILY 08/20/23 08/20/23 History linezolid 600 mg tablet 600 mg PO BID 08/20/23 08/20/23 History Allergies Allergy/AdvReac Type Severity Reaction Status Date / Time aspirin Allergy Unknown Verified 08/10/23 17:07 Exam Narrative Exam Narrative: Viktor Acevedo MD personally performed the services described in this documentation, as scribed by Esther Sy RDMS in my presence and it is both accurate and complete. Esther Acevedo RDMS, am scribing for, and in the presence of, Dr. Viktor Hernandez and in the presence of the patient. Constitutional Documenting provider has reviewed patient's vital signs: yes Common normals: oriented x3 General appearance: cooperative Lymph Lymphatic: no lymphedema noted Chest Common normals: inspection of chest normal Respiratory Common normals: normal respiratory effort Cardio Rate: regular rate Rhythm: regular rhythm Peripheral pulses: posterior tibial pulses present and dorsalis pedis pulses present GI Common normals: Normal to inspection, nondistended, normoactive bowel sounds present Extremity General: calf tenderness (right lower leg tenderness and numbness), edema (Right lower extremity edema significantly improved) and other findings (Non-healing ulcer right distal medial lower leg) Right lower extremity: lower leg Right lower leg: inspection Left lower extremity: lower leg Left lower leg: inspection Neuro Common normals: oriented x3 Results Imaging Venous US: Radiologist's impression: Chemically induced thrombus in multiple varicose veins in right leg. Viktor Acevedo MD personally performed the services described in this documentation, as scribed by Esther Sy RDMS in my presence and it is both accurate and complete. Esther Acevedo RDMS, am scribing for, and in the presence of, Dr. Viktor Hernandez and in the presence of the patient. Assessment and Plan Assessment and Plan (1) Phlebitis and thrombophlebitis of superficial vessels of right lower extremity: Plan Patient is finished with treatment at this time. Follow up in 1-2 years or as needed. IViktor MD personally performed the services described in this documentation, as scribed by Esther Sy RDMS in my presence and it is both accurate and complete. I, Esther Sy RDMS, am scribing for, and in the presence of, Dr. Viktor Hernandez and in the presence of the patient.
--- NOTE | 2024-03-24 11:26 | P.DS_ITS ---
Discharge Plan Discharge Disposition: Home, Self-Care Discharge Medications: No Action allopurinol 200 mg tablet 200 mg PO DAILY amlodipine 5 mg tablet 5 mg PO DAILY linezolid 600 mg tablet 600 mg PO BID Probacap 10 billion cell capsule 100 mmu cells PO DAILY Print Language: Vietnamese Discharge Date/Time: 03/24/24 11:26
== END 2024-03-24 11:26 | disposition home or self-care (01) ==
LOC: VC 07:27
PROVIDERS: PCP Radiology Diagnostic Radiology; Visit Provider Radiology Diagnostic Radiology
DX: I80.01 Phlebitis and thrombophlebitis of superficial vessels of right lower extremity (principal)
CPT/HCPCS: 93971; G0463

== ENCOUNTER 2024-03-27 07:28 | Outpatient (OUT) | payer MEDICARE, OTHER, SELFPAY ==
--- NOTE | 2024-03-27 07:30 | P.DS_ITS ---
Discharge Plan Discharge Disposition: Home, Self-Care Plan of Treatment: Finished with treatment at this time. Print Language: Citizen Of [place] Discharge Date/Time: 03/27/24 08:46
--- OUTSIDE RECORDS SUMMARY | 2024-03-27 07:30 | XMS_ITS | CCD ---
Author Organization [facility] Care Team Providers Care Home Health Occupational Therapist Name Role Phone NONE, XXXX Primary Care Physician Unavailab trena Figueroa MD, Michelle Barlow Primary Care Provider Michelle Figueroa MD Unavailable Michelle Figueroa Primary Care Physician DO Jose Manuel Figueroa Attending Unavailable Elvira WALLER Attending Unavailable Dwight Eddy Admitting Unavailable Dolce, Jhonatan Richadrson Consulting Unavailable Dolce, JULIETH Richardson Consulting Unavailable [...] PLEASNICK, MICHELE Parrish Attending Unavailab le POCOS, CNYTHIA Parrish Referring Unavailable PLEASNICK, MICHELE Parrish Attending [...] (1 source) Aspirin; Translations: [aspirin] Drug Allergy [facility] Repository (10 sources) Aspirin; Translations: [aspirin] Drug Allergy Unknown (qualifier value) [facility] (13 sources) Aluminum aspirin Drug Allergy [...] day(s), # 28 tab(s), Refills(s) 0, Pharmacy: [facility], 185.4, cm, 07/06/23 12:13:00 [...] mGy = . DAP = . Normal [facility] CHEMISTRYOrdered By: SYSTEM SYSTEM on [...] for this result was chemiluminescence using [employer] Hybritech PSA reagent. Protein [Mass/Vol] 6.9 g/dL Normal 6.0 - 7.8 gm/dL Remisol Chem Sodium [Moles/Vol] 141 mmol/L Normal 135 - 145 mmol/L Remisol Chem Urea nitrogen [Mass/Vol] 23 mg/dL High 5 - 21 mg/dL Remisol Chem Urea nitrogen/Creatinine [Mass ratio] 15 mg/mg Normal 10 - 20 Remisol Chem CMPon 09-04-2023 Albumin [Mass/Vol] 4.0 g/dL Normal 3.3-5.0 [facility] Comment on above: Performed By: #### 2 [id number] #### [facility] Laboratory [address] [place] [address] Albumin/Globulin (S) [Mass conc ratio] 1.4 Normal 1.1-2.2 [facility] Comment on above: Performed By: #### 2 [id number] #### [facility] [address] [place] [address] ALP [Catalytic activity/Vol] 94 Int._Unit/L Normal 21-98 [facility] Comment on above: Performed By: #### 2 [id number] #### [facility] [address] [place] [address] ALT No additional P-5'-P [Catalytic activity/Vol] 16 Int._Unit/L Normal 6-46 [facility] Comment on above: Performed By: #### 2 473765 #### [facility] [address] [place] [address] Anion gap [Moles/Vol] 11 mmol/L Normal 6-16 [facility] Comment on above: Performed By: #### 2 [id number] #### [facility] [address] [place] [address] AST [Catalytic activity/Vol] 15 Int._Unit/L Normal 5-43 [facility] Comment on above: Performed By: #### 2 [id number] #### [facility] [address] [place] [address] Bilirubin [Mass/Vol] 0.4 mg/dL Normal 0.0-1.1 [facility] Comment on above: Performed By: #### 2 494820 #### [facility] [address] [place] [address] Calcium [Mass/Vol] 9.5 mg/dL Normal 8.9-11.1 [facility] Comment on above: Performed By: #### 2 830769 #### [facility] [address] [place] [address] Chloride [Moles/Vol] 110 mmol/L Normal 101-111 [facility] Comment on above: Performed By: #### 2 839042 #### [facility] [address] [place] [address] CO2 [Moles/Vol] 25 mmol/L Normal 21-31 [facility] Comment on above: Performed By: #### 2 824316 #### [facility] [address] [place] [address] Creatinine [Mass/Vol] 1.5 mg/dL High 0.5-1.3 [facility] Comment on above: Performed By: #### 2 984415 #### [facility] [address] [place] [address] Globulin (S) [Mass/Vol] 2.9 g/dL Normal 1.4-4.0 [facility] Comment on above: Performed By: #### 2 854092 #### [facility] [address] [place] [address] Glucose [Mass/Vol] 108 mg/dL Normal 55-199 [facility] Comment on above: Performed By: #### 2 200940 #### [facility] [address] [place] [address] Potassium [Moles/Vol] 4.6 mmol/L Normal 3.5-5.3 [facility] Comment on above: Performed By: #### 2 739668 #### [facility] [address] [place] [address] Protein [Mass/Vol] 6.9 g/dL Normal 6.0-7.8 [facility] Comment on above: Performed By: #### 2 694238 #### [facility] [address] [place] [address] Sodium [Moles/Vol] 141 mmol/L Normal 135-145 [facility] Comment on above: Performed By: #### 2 112462 #### [facility] [address] [place] [address] Urea nitrogen [Mass/Vol] 23 mg/dL High 5-21 [facility] Comment on above: Performed By: #### 2 072072 #### [facility] [address] [place] [address] Urea nitrogen/Creatinine [Mass ratio] 15 No Units Normal 10-20 [facility] Comment on above: Performed By: #### 2 045905 #### [facility] [address] [place] [address] PSA Totalon 09-04-2023 Prostate specific Ag [Mass/Vol] 1.3 ng/mL Normal 0.1-3.5 [facility] Comment on above: Result Comment: The concentration of PSA determined by different manufacturers can vary due to differences in assay methods and reagent specificity. Values obtained from different assay methods cannot be used interchangeably. The methodology used for this result was chemiluminescence using [employer]'s [employer] Hybritech PSA reagent. Performed By: #### 1 [id number] #### [facility] [address] [place] [address] eGFRon 09-04-2023 eGFR 51 mL/min/1.73 m2 Low >=59 [facility] Comment on above: Order Comment: Order added by Discern Expert. Performed By: #### 1 [id number] #### [facility] [address] [place] [address] Referrals Officeon 4 Referrals Office [id number]#1.00 TIFF Normal [facility] General Message Officeon General Message Office --- --- --- --- - -- --- --- --- --- From: Archie Hilton To: JEAN MARIE MAST SR Sent: 07/11/23 02:31:06 AM EDT Subject: Discharge Summary Ready to View A summary regarding your recent visit is available in the Documents section of your health record. Normal [facility] Consultation Noteon 07-10-19 Consultation Note Patient: JEAN MARIE MATS SR [...] Problems Asymptomatic microscopic hematuria / SNOMED CT 1218901831 / Confirmed BPH with urinary obstruction / SNOMED CT 5135046664 / Confirmed kidney stones / SNOMED CT 064950424 / Confirmed Histories Past Medical History: Active kidney stones (042487087) Resolved HTN - Hypertension (7989083670): Resolved. Gout (513947766): Resolved. Family History: Kidney stone Mother Hypertension Mother Diabetes mellitus type 2 Father Procedure history: Cysto, left ureteral stent removal, left RGP, left ureteronephroscopy with Holmium laser ablation, multiple basket extraction of stone,fragments, replacement of JJ ureteral stent under fluoroscopic guidance. on 09/08/2015 at 60 Years. Cystoscopy ([id number]) on 08/04/2015 at 60 Years. Comments: 08/04/2015 17:56 EDT - Maurice ALMAGUER, Marilyn Left Stent Insertion Abdominal hernia ([id number]). Physical Examination Vital Signs 07/10/2023 12:01 EDT [...] or not further antibiotics are needed.. Normal [facility] Comment on above: Result Comment: Elec tronically Signed By: Jean Marie Mccullough M.D\.br\Date and Time Signed: 07/10/23 14:43 EDT Discharge Instructionson Discharge Instructions [id number]#1.00 TIFF Normal [facility] Discharge Note-Nursingon Discharge Note-Nursing JEAN MARIE MAST SR, DOB:1955 Visit Date:07/06/2023 Inpatient Discharge Instructions Your Care Team Admitting Physician - Dwight Eddy DO Consulting Physician - Jean Marie Mccullough M.D DPM, Jhonatan Brandon MD, [facility]. Reason for Your Visit pt [...] Diagnostic Test Results Wound culture Pharmacy Information [facility] Previously Scheduled Follow-Up Appointments Sunday 3:30 PM EDT With: JAMESON SUH, Taras Duncan Where: [facility] Inpatient Clinical Summaryon 07-10-2023 Inpatient Clinical Summary [place] [address] Clinical Summary Person Information: Name: JEAN MARIE MAST SR Age: 68 Years : 1955 Sex: Male PCP: Michelle Figueroa MD Marital Status: Race: White Ethnicity: Non- or Language: Haitian Visit Id: Visit Reason: Cellulitis - Leg; Lower leg pain-swelling; SENT BY DR MARISCAL, LEG PAIN Speciality: Acuity: Enc Type: Inpatient Med Service: Medical Arrival: 07/06/2023 12:00:42 Discharge: Dispo Type: Admitted as IP to this Hosp Address: [address] [place] [address] [address] [facility] [address] Provider Notes: Diagnosis: 1:Cellulitis of right leg; [...] up: With: Address: When: Dixie Brandon [address] [place] [address] Business (1) Within 1 to 2 weeks Comments: Call for followup appointment With: Address: When: Jean Marie Mccullough [address] [place] [address] Business (1) 07/23/2023 1:45 PM With: Address: When: Michelle Figueroa [address] [place] [address] Business (1) 07/17/2023 10:00 AM With: Address: When: [facility]honatan [facility], [address], [place] [address] 07/11/2023 8:20 AM Type Location Start [facility] Office Visit [facility] 09/12/2023 3:30 PM 09/12/2023 3:45 PM Confirmed Patient Education Information: Cellulitis, Adult, Klei-qt-Mudt Normal [facility] Inpatient Patient Summaryon 07-10-2023 Inpatient Patient Summary [address] [address] Patient Discharge Instructions PERSON INFORMATION [...] Wound culture Follow up: With: Address: When: iDxie Brandon [address] [place] [address] Business (1) Within 1 to 2 weeks Comments: Call for followup appointment With: Address: When: Jean Marie Mccullough [address] [place] [address] Business (1) 07/23/2023 1:45 PM With: Address: When: Michelle Figueroa [address] [place] [address] Business (1) 07/17/2023 10:00 AM With: Address: When: Jhonatan MULLER - [facility], [facility], [address], [place] [address] 07/11/2023 8:20 AM In the event that this physician does not participate in your insurance network, please consult with your insurance company to find a nearby participating provider. Type Location Start [facility] Office Visit [facility] LIZETH Ryan 09/12/2023 3:30 PM 09/12/2023 3:45 PM Confirmed Comment: PRO Acevedo SR, MICHAEL, have received the attached patient education materials/instructions and have verbalized understanding: Patient Signature Date Clinican/Nurse Signature _ Date HERE ARE THE MEDICATION CHANGES THAT OCCURRED DURING YOUR HOSPITAL STAY New Medications [facility], [address] [facility] [place], [place] [id number], [phone] linezolid (Zyvox 600 mg Tab) 1 Tablets [...] is very import (more content not included)... [facility] Interdisciplinary Note - Justin e Manageron 07-10-2023 Interdisciplinary Note - Data Analyst Report Writer Pt is asleep in bed, no family [...] on Linzolid cost checked at pt preferred [facility], with his insurance was over $400, but with good rx will be down to $51.50 and they have in stock currently. Pt updated on cost and pt is ok with cost. Nursing updated on DC plan [facility] Comment on above: Result Comment: Elec tronically Signed By: Chasidy ALMAGUER, Alaina\.joelle\Date and Time Signed: 07/10/23 15:15 EDT Monitor Recordon 07-10-2023 Monitor Record [id number]#1.00 TIFF [facility] Monitor Record [id number]#1.00 TIFF [facility] Progress Note-Physicianon Progress Note-Physician Assessment/Plan 68-year-old [...] with IV Invanz and vancomycin. Seen by flooring helper and had a bedside incision and drainage of blister/bullae. Status post wound dressing. MRI does not show any deep tissue abscess of bone involvement/osteomyelit is. Infectious disease consult pending. Vascular surgery consult?can be done as outpatient. Ordered: [facility] Hospital Care/Day Moderate 35 Minutes 09431 2. Wound of right ankle (S91.001A: Unspecified open wound, right ankle, initial encounter) Continue wound dressings. Wound cultures so far not isolating any organisms. Ordered: [facility] Hospital Care/Day Moderate 35 Minutes 40809 Wound Culture 3. Acute kidney injury (N17.9: Acute kidney failure, unspecified) Acute kidney injury?secondary to ATN from above infection, diuretics and lisinopril. Improved. Lisinopril and hydrochlorothiazide suspended. Treated with IV fluid. Ordered: [facility] Hospital Care/Day Moderate 35 Minutes 68249 4. Obese (E66.9: Obesity, unspecified) Recommend therapeutic lifestyle modification changes. Ordered: [facility] Hospital Care/Day Moderate 35 Minutes 27637 5. HTN (hypertension) (I10: Essential (primary) hypertension) [...] made to ensure accuracy. However inadvertent computerized catalyst supervisor errors may be present. Elvira Waller. Hospitalist. [...] stones Histori (more content not included)... Normal [facility] Comment on above: Result Comment: Elec tronically Signed By: AYANNA SUH, Elvira\.br\Date and Time Signed: 07/10/23 12:09 EDT BMPon 07-09-2023 Anion gap [Moles/Vol] 8 mmol/L Normal 6-16 [facility] Comment on above: Performed By: #### 2 [id number] #### [facility] [address] [place] [address] Calcium [Mass/Vol] 8.2 mg/dL Low 8.9-11.1 [facility] Comment on above: Performed By: #### 2 764260 #### [facility] [address] [place] [address] Chloride [Moles/Vol] 108 mmol/L Normal 101-111 [facility] Comment on above: Performed By: #### 2 373315 #### [facility] [address] [place] [address] CO2 [Moles/Vol] 27 mmol/L Normal 21-31 [facility] Comment on above: Performed By: #### 2 938764 #### [facility] [address] [place] [address] Creatinine [Mass/Vol] 1.4 mg/dL High 0.5-1.3 [facility] Comment on above: Performed By: #### 2 198808 #### [facility] [address] [place] [address] Glucose [Mass/Vol] 109 mg/dL Normal 55-199 [facility] Comment on above: Performed By: #### 2 827857 #### [facility] [address] [place] [address] Potassium [Moles/Vol] 3.8 mmol/L Normal 3.5-5.3 [facility] Comment on above: Performed By: #### 2 802435 #### [facility] [address] [place] [address] Sodium [Moles/Vol] 139 mmol/L Normal 135-145 [facility] Comment on above: Performed By: #### 2 552238 #### [facility] [address] [place] [address] Urea nitrogen [Mass/Vol] 16 mg/dL Normal 5-21 [facility] Comment on above: Performed By: #### 2 707094 #### [facility] [address] [place] [address] Urea nitrogen/Creatinine [Mass ratio] 11 No Units Normal 10-20 [facility] Comment on above: Performed By: #### 2 655246 #### [facility] [address] [place] [address] CHEMISTRYOrdered By: SYSTEM SYSTEM on 07-09-2023 Vanco [...] Justin e Manageron 07-09-2023 Interdisciplinary Note - Data Analyst Report Writer Pt is out of room for MRI [...] information reviewed. CRM following for needs. Normal [facility] Comment on above: Result Comment: [...] Vueway Contrast amount in ml's: 10 Normal [facility] MRI Tibia/Fibula w/ + w/o [...] osteomyelitis, or marrow replacing process. Joint: Large sqqfb-di-qxdr imaging of the knee with degenerative changes with subchondral cystic change, probable tearing of the medial lateral meniscus, probable tearing of ACL, but overall not well evaluated on the large vbzqo-pv-atog. Muscle: Mild diffuse fatty infiltration of the [...] tendons grossly intact within limits of large wzctn-tp-harm. Small amount of increased fluid at the [...] Vueway Contrast amount in ml's: 10 Normal [facility] Message from Medicareon 06-20 Message from Medicare [id number]#1.00T IFF Normal [facility] Message from Medicare [id number]#1.00T IFF Normal [facility] Monitor Recordon 07-09-2023 Monitor Record [id number]#1.00 TIFF Normal [facility] Monitor Record [id number]#1.00 TIFF Normal [facility] Monitor Record [id number]#1.00 TIFF Normal [facility] Monitor Record [id number]#1.00 TIFF Normal [facility] No Panel InformationOrdered By: Maty Felix on 07-09-2023 GS No organisms seen. [facility] Wound Culture Scant growth of Staphylococcus species coagulase negative [facility] Progress Note - Pharmacyon 0 07-09-2023 [...] questions, please contact the pharmacy at extension [phone]. Age: 68 Years Allergies: aspirin Weight: Last [...] Vanco Pk: 27 mcg/mL (07/08/23 17:11:00) Normal [facility] Progress Note-Physicianon Progress Note-Physician Patient: [...] Problems Asymptomatic microscopic hematuria / SNOMED CT 3194464963 / Confirmed BPH with urinary obstruction / SNOMED CT 0718031734 / Confirmed kidney stones / SNOMED CT 927213351 / Confirmed, Active Problems (3) Asymptomatic microscopic [...] Right tibia (more content not included)... Normal [facility] Comment on above: Result Comment: [...] Infuse over 30 minute(s), 07/09/23 12:12:00 EDT [facility] Hospital Care/Day Moderate 35 Minutes 70670 2. Wound of right ankle (S91.001A: Unspecified open wound, right ankle, initial encounter) Present during this admission. Wound culture. MRI of the foot pending. Ordered: ertapenem + Sodium Chloride 0.9% intravenous solution 50 mL, 500 mg = 0.5 EA, IV Piggyback, Daily, Routine, Start date 07/10/23 9:00:00 EDT, 100 mL/hr, Infuse over 30 minute(s), 07/09/23 12:12:00 EDT [facility] Hospital Care/Day Moderate 35 Minutes 52285 Wound Culture 3. Acute kidney injury (N17.9: Acute kidney failure, unspecified) Acute kidney injury?secondary to ATN from above infection, diuretic and lisinopril. Improved. Avoid nephrotoxic drugs. Lisinopril and hydrochlorothiazide suspended. Treated with IV fluid. Ordered: [facility] Hospital Care/Day Moderate 35 Minutes 10852 4. Obese (E66.9: Obesity, unspecified) Recommend therapeutic lifestyle modification changes. Ordered: [facility] Hospital Care/Day Moderate 35 Minutes 88981 5. HTN (hypertension) (I10: Essential (primary) hypertension) [...] made to ensure accuracy. However inadvertent computerized catalyst supervisor errors may be present. Elvira Waller. Hospitalist. [...] High (05 (more content not included)... Normal [facility] Comment on above: Result Comment: Elec tronically Signed By: AYANNA SUH, Elvira\.br\Date and Time Signed: 07/09/23 12:19 EDT RAD - MRI Screening Formon 0 07-09-2023 RAD - MRI Screening Form [id number]#1.0 0TIFF Normal [facility] Vanco Troughon 07-09-2023 Vanco Tr 9 microgram/mL Low 10-20 [facility] Comment on above: Performed By: #### 2 673562 ####[facility] [address] [place] [address] eGFRon 07-09-2023 eGFR 55 mL/min/1.73 m2 Low >=59 [facility] Comment on above: Order Comment: Order added by Discern Expert. Performed By: #### 1 [id number] #### [facility] [address] [place] [address] BMPon 07-08-2023 Anion gap [Moles/Vol] 10 mmol/L Normal 6-16 [facility] Comment on above: Performed By: #### 2 650932 #### [facility] [address] [place] [address] Calcium [Mass/Vol] 8.2 mg/dL Low 8.9-11.1 [facility] Comment on above: Performed By: #### 2 807284 #### [facility] [address] [place] [address] Chloride [Moles/Vol] 107 mmol/L Normal 101-111 [facility] Comment on above: Performed By: #### 2 398515 #### [facility] [address] [place] [address] CO2 [Moles/Vol] 25 mmol/L Normal 21-31 [facility] Comment on above: Performed By: #### 2 065786 #### [facility] [address] [place] [address] Creatinine [Mass/Vol] 1.4 mg/dL High 0.5-1.3 [facility] Comment on above: Performed By: #### 2 605989 #### [facility] [address] [place] [address] Glucose [Mass/Vol] 110 mg/dL Normal 55-199 [facility] Comment on above: Performed By: #### 2 746856 #### [facility] [address] [place] [address] Potassium [Moles/Vol] 3.9 mmol/L Normal 3.5-5.3 [facility] Comment on above: Performed By: #### 2 774089 #### [facility] [address] [place] [address] Sodium [Moles/Vol] 138 mmol/L Normal 135-145 [facility] Comment on above: Performed By: #### 2 164822 #### [facility] [address] [place] [address] Urea nitrogen [Mass/Vol] 21 mg/dL Normal 5-21 [facility] Comment on above: Performed By: #### 2 260498 #### [facility] [address] [place] [address] Urea nitrogen/Creatinine [Mass ratio] 15 No Units Normal 10-20 [facility] Comment on above: Performed By: #### 2 006624 #### [facility] [address] [place] [address] CHEMISTRYOrdered By: SYSTEM SYSTEM on 07-08-2023 Vanco [...] Problems Asymptomatic microscopic hematuria / SNOMED CT 0221191371 / Confirmed BPH with urinary obstruction / SNOMED CT 1861678607 / Confirmed kidney stones / SNOMED CT 737690309 / Confirmed, Active Problems (3) Asymptomatic microscopic [...] his tib-fib (more content not included)... Normal [facility] Comment on above: Result Comment: Elec tronically Signed By: Yanira CLANCY, Jhonatan Richardson\.br\Date and Time Signed: 07/08/23 09:52 EDT Monitor Recordon 07-08-2023 Monitor Record [id number]#1.00 TIFF Normal [facility] Progress Note-Physicianon Progress Note-Physician Subjective [...] control as needed Last for a.m. Ordered: [facility] Hospital Care/Day Moderate 35 Minutes 86609 2. Acute kidney injury (N17.9: Acute kidney failure, unspecified) Serum creatinine down to 1.4 FENa from yesterday was 1.8; may be intrinsic and he was taking HCTZ, lisinopril and Mobic in the outpatient setting which all have been held Ordered: [facility] Hospital Care/Day Moderate 35 Minutes 23291 Orders: Basic Metabolic Panel eGFR Extra Lav [...] mg= 1 (more content not included)... Normal [facility] Comment on above: Result Comment: Elec tronically Signed By: Dwight Eddy DO\Date and Time Signed: 07/08/23 12:44 EDT Vanco Peakon 07-08-2023 Vanco Pk 27 microgram/mL Normal 20-40 [facility] Comment on above: Order Comment: pleas e draw one hour after vancomycin infusion is complete Performed By: #### 2 796719 #### [facility] [address] [place] [address] XR Foot 3+ Views Righton XR Foot [...] mGy = . DAP = . Normal [facility] XR Tib/Fib Right 2 Viewon [...] mGy = . DAP = . Normal [facility] eGFRon 07-08-2023 eGFR 55 mL/min/1.73 m2 Low >=59 [facility] Comment on above: Order Comment: Order added by Discern Expert. Performed By: #### 1 [id number] #### [facility] [address] [place] [address] BMPon 07-07-2023 Anion gap [Moles/Vol] 10 mmol/L Normal 6-16 [facility] Comment on above: Performed By: #### 2 [id number] #### [facility] [address] [place] [address] Calcium [Mass/Vol] 8.2 mg/dL Low 8.9-11.1 [facility] Comment on above: Performed By: #### 2 [id number] #### [facility] [address] [place] [address] Chloride [Moles/Vol] 106 mmol/L Normal 101-111 [facility] Comment on above: Performed By: #### 2 [id number] #### [facility] [address] [place] [address] CO2 [Moles/Vol] 25 mmol/L Normal 21-31 [facility] Comment on above: Performed By: #### 2 [id number] #### [facility] [address] [place] [address] Creatinine [Mass/Vol] 1.6 mg/dL High 0.5-1.3 [facility] Comment on above: Performed By: #### 2 [id number] #### [facility] [address] [place] [address] Glucose [Mass/Vol] 103 mg/dL Normal 55-199 [facility] Comment on above: Performed By: #### 2 [id number] #### [facility] [address] [place] [address] Potassium [Moles/Vol] 3.7 mmol/L Normal 3.5-5.3 [facility] Comment on above: Performed By: #### 2 854254 #### [facility] [address] [place] [address] Sodium [Moles/Vol] 137 mmol/L Normal 135-145 [facility] Comment on above: Performed By: #### 2 [id number] #### [facility] [address] [place] [address] Urea nitrogen [Mass/Vol] 27 mg/dL High 5-21 [facility] Comment on above: Performed By: #### 2 [id number] #### [facility] [address] [place] [address] Urea nitrogen/Creatinine [Mass ratio] 17 No Units Normal 10-20 [facility] Comment on above: Performed By: #### 2 [id number] #### [facility] [address] [place] [address] CBC w/ Auto Diffon 4 Basophils/100 WBC (Bld) 0.5 % Normal 0.0-2.0 [facility] Comment on above: Performed By: #### 2 [id number] #### [facility] [address] [place] [address] Basophils/Leukocytes Auto (Bld) [Pure # fraction] 0.0 E9/L Normal 0.0-0.2 [facility] Comment on above: Performed By: #### 2 [id number] #### [facility] [address] [place] [address] Eosinophils (Bld) [#/Vol] 0.2 E9/L Normal 0.0-0.5 [facility] Comment on above: Performed By: #### 2 [id number] #### [facility] [address] [place] [address] Eosinophils/100 WBC (Bld) 3.0 % Normal 0.0-8.0 [facility] Comment on above: Performed By: #### 2 943011 #### [facility] [address] [place] [address] Erythrocyte distribution width (RBC) [Ratio] 13.6 % Normal 10.9-14.2 [facility] Comment on above: Performed By: #### 2 054757 #### [facility] [address] [place] [address] Hematocrit (Bld) [Volume fraction] 40.6 % Normal 37.7-49.0 [facility] Comment on above: Performed By: #### 2 609794 #### [facility] [address] [place] [address] Hemoglobin (Bld) [Mass/Vol] 13.8 g/dL Normal 13.5-17.5 [facility] Comment on above: Performed By: #### 2 670292 #### [facility] [address] [place] [address] Lymphocytes (Bld) [#/Vol] 1.7 E9/L Normal 1.0-4.0 [facility] Comment on above: Performed By: #### 2 824259 #### [facility] [address] [place] [address] Lymphocytes/100 WBC (Bld) 20.4 % Normal 14.0-50.0 [facility] Comment on above: Performed By: #### 2 551561 #### [facility] [address] [place] [address] MCH (RBC) [Entitic mass] 32.2 pg Normal 27.0-34.0 [facility] Comment on above: Performed By: #### 2 927177 #### [facility] [address] [place] [address] MCHC (RBC) [Mass/Vol] 34.1 g/dL Normal 31.4-36.0 [facility] Comment on above: Performed By: #### 2 894707 #### [facility] [address] [place] [address] MCV (RBC) [Entitic vol] 94.5 fL Normal 80.0-100.0 [facility] Comment on above: Performed By: #### 2 368935 #### [facility] [address] [place] [address] Monocytes (Bld) [#/Vol] 0.5 E9/L Normal 0.2-1.0 [facility] Comment on above: Performed By: #### 2 298951 #### [facility] [address] [place] [address] Neutrophils (Bld) [#/Vol] 5.7 E9/L Normal 2.0-7.5 [facility] Comment on above: Performed By: #### 2 323756 #### [facility] [address] [place] [address] Neutrophils/100 WBC (Bld) 69.7 % Normal 36.0-75.0 [facility] Comment on above: Performed By: #### 2 991554 #### [facility] [address] [place] [address] Platelet mean volume (Bld) [Entitic vol] 8.6 fL Normal 6.4-10.8 [facility] Comment on above: Performed By: #### 2 159075 #### [facility] [address] [place] [address] Platelets (Bld) [#/Vol] 205.0 E9/L Normal 150.0-500.0 [facility] Comment on above: Performed By: #### 2 136198 #### [facility] [address] [place] [address] RBC (Bld) [#/Vol] 4.3 E12/L Normal 4.3-5.9 [facility] Comment on above: Performed By: #### 2 664875 #### [facility] [address] [place] [address] WBC corrected for nucl RBC Auto (Bld) [#/Vol] 8.1 E9/L Normal 4.0-11.0 [facility] Comment on above: Performed By: #### 2 253752 #### [facility] [address] [place] [address] CHEMISTRYOrdered By: SYSTEM SYSTEM on 07-07-2023 Anion [...] Monitor Recordon 07-07-2023 Monitor Record [id number]#1.00 TIFF Normal [facility] Monitor Record [id number]#1.00 TIFF Normal [facility] Monitor Record [id number]#1.00 TIFF Normal [facility] Monitor Record [id number]#1.00 TIFF Normal [facility] Monitor Record [id number]#1.00 TIFF Normal [facility] Monitor Record [id number]#1.00 TIFF Normal [facility] Progress Note-Physicianon Progress Note-Physician Subjective [...] 05:35:00) Lymph Auto: 20.4 % (07/07/23 05:35:00) [place] Auto: 6.4 % (07/07/23 05:35:00) Eos Auto: 3 % (07/07/23 05:35:00) Basophil Auto: 0.5 % (07/07/23 05:35:00) Neutro Absolute: 5.7 E9/L (07/07/23 05:35:00) Lymph Absolute: 1.7 E9/L (07/07/23 05:35:00) [place] Absolute: 0.5 E9/L (07/07/23 05:35:00) Eos Absolute: [...] Ordered: Initial Hospital Care/Day Moderate 55 Minutes 72271 2. Acute kidney injury (N17.9: Acute kidney failure, unspecified) FENa 1.8 which may be intrinsic; patient was taking HCTZ and lisinopril which had been held and he was also taking Mobic Creatinine down to 1.6 Continue to trend Ordered: Initial Hospital Care/Day Moderate 55 Minutes [id number] Orders: acetaminophen, 650 mg = 2 tab(s), Tab, Oral, q6hr PRN Pain, Routine, Start date 07/06/23 16:49:00 EDT, 07/06/23 16:49:00 EDT Al hydroxide/Mg hydroxide/simethicone, 30 mL, Susp-Or (more content not included)... Normal [facility] Comment on above: Result Comment: Elec tronically Signed By: Dwight Eddy DO\.br\Date and Time Signed: 07/07/23 14:55 EDT eGFRon 07-07-2023 eGFR 47 mL/min/1.73 m2 Low >=59 [facility] Comment on above: Order Comment: Order added by Discern Expert. Performed By: #### 1 [id number] #### [facility] [address] [place] [address] BMPon 07-06-2023 Anion gap [Moles/Vol] 12 mmol/L Normal 6-16 [facility] Comment on above: Performed By: #### 2 919302 #### [facility] [address] [place] [address] Calcium [Mass/Vol] 8.6 mg/dL Low 8.9-11.1 [facility] Comment on above: Performed By: #### 2 821402 #### [facility] [address] [place] [address] Chloride [Moles/Vol] 104 mmol/L Normal 101-111 [facility] Comment on above: Performed By: #### 2 284293 #### [facility] [address] [place] [address] CO2 [Moles/Vol] 25 mmol/L Normal 21-31 [facility] Comment on above: Performed By: #### 2 339619 #### [facility] [address] [place] [address] Creatinine [Mass/Vol] 1.8 mg/dL High 0.5-1.3 [facility] Comment on above: Performed By: #### 2 371139 #### [facility] [address] [place] [address] Glucose [Mass/Vol] 111 mg/dL Normal 55-199 [facility] Comment on above: Performed By: #### 2 568030 #### [facility] [address] [place] [address] Potassium [Moles/Vol] 3.5 mmol/L Normal 3.5-5.3 [facility] Comment on above: Performed By: #### 2 462233 #### [facility] [address] [place] [address] Sodium [Moles/Vol] 137 mmol/L Normal 135-145 [facility] Comment on above: Performed By: #### 2 183684 #### [facility] [address] [place] [address] Urea nitrogen [Mass/Vol] 29 mg/dL High 5-21 [facility] Comment on above: Performed By: #### 2 190367 #### [facility] [address] [place] [address] Urea nitrogen/Creatinine [Mass ratio] 16 No Units Normal 10-20 [facility] Comment on above: Performed By: #### 2 446505 #### [facility] [address] [place] [address] CBC w/ Auto Diffon 4 Basophils/100 WBC (Bld) 0.4 % Normal 0.0-2.0 [facility] Comment on above: Performed By: #### 2 315626 #### [facility] [address] [place] [address] Basophils/Leukocytes Auto (Bld) [Pure # fraction] 0.0 E9/L Normal 0.0-0.2 [facility] Comment on above: Performed By: #### 2 699125 #### [facility] [address] [place] [address] Eosinophils (Bld) [#/Vol] 0.2 E9/L Normal 0.0-0.5 [facility] Comment on above: Performed By: #### 2 831809 #### [facility] [address] [place] [address] Eosinophils/100 WBC (Bld) 2.8 % Normal 0.0-8.0 [facility] Comment on above: Performed By: #### 2 641989 #### [facility] [address] [place] [address] Erythrocyte distribution width (RBC) [Ratio] 13.9 % Normal 10.9-14.2 [facility] Comment on above: Performed By: #### 2 288764 #### [facility] [address] [place] [address] Hematocrit (Bld) [Volume fraction] 46.2 % Normal 37.7-49.0 [facility] Comment on above: Performed By: #### 2 358984 #### [facility] [address] [place] [address] Hemoglobin (Bld) [Mass/Vol] 15.6 g/dL Normal 13.5-17.5 [facility] Comment on above: Performed By: #### 2 987905 #### [facility] [address] [place] [address] Lymphocytes (Bld) [#/Vol] 1.3 E9/L Normal 1.0-4.0 [facility] Comment on above: Performed By: #### 2 660349 #### [facility] [address] [place] [address] Lymphocytes/100 WBC (Bld) 18.3 % Normal 14.0-50.0 [facility] Comment on above: Performed By: #### 2 175002 #### [facility] [address] [place] [address] MCH (RBC) [Entitic mass] 32.2 pg Normal 27.0-34.0 [facility] Comment on above: Performed By: #### 2 239442 #### [facility] [address] [place] [address] MCHC (RBC) [Mass/Vol] 33.7 g/dL Normal 31.4-36.0 [facility] Comment on above: Performed By: #### 2 416764 #### [facility] [address] [place] [address] MCV (RBC) [Entitic vol] 95.3 fL Normal 80.0-100.0 [facility] Comment on above: Performed By: #### 2 520883 #### [facility] [address] [place] [address] Monocytes (Bld) [#/Vol] 0.6 E9/L Normal 0.2-1.0 [facility] Comment on above: Performed By: #### 2 882097 #### [facility] [address] [place] [address] Neutrophils (Bld) [#/Vol] 4.9 E9/L Normal 2.0-7.5 [facility] Comment on above: Performed By: #### 2 489486 #### [facility] [address] [place] [address] Neutrophils/100 WBC (Bld) 70.2 % Normal 36.0-75.0 [facility] Comment on above: Performed By: #### 2 926187 #### [facility] [address] [place] [address] Platelet 189.0 E9/L Normal 150.0-500.0 [facility] Comment on above: Performed By: #### 2 304179 #### [facility] [address] [place] [address] Platelet mean volume (Bld) [Entitic vol] 8.5 fL Normal 6.4-10.8 [facility] Comment on above: Performed By: #### 2 759623 #### [facility] [address] [place] [address] RBC (Bld) [#/Vol] 4.8 E12/L Normal 4.3-5.9 [facility] Comment on above: Performed By: #### 2 663768 #### [facility] [address] [place] [address] WBC corrected for nucl RBC Auto (Bld) [#/Vol] 7.0 E9/L Normal 4.0-11.0 [facility] Comment on above: Performed By: #### 2 773486 #### [facility] [address] [place], [place] [address] CHEMISTRYOrdered By: SYSTEM SYSTEM on 07-06-2023 Sodium [Moles/Vol] 127 mmol/L Invalid Interpretation Code Remisol Chem U Creatinine 93.5 mg/dL Invalid Interpretation Code Remisol Chem Lactic Acid Lvl 1.0 mmol/L Normal 0.5 - 2.2 mmol/L Remisol Chem Consent for Treatmenton 06-19 Consent for Treatment [id number]#1.00T IFF Normal [facility] ED Clinical Summaryon 2023 ED Clinical Summary (Inserted Image. Denisha ble to display) [address] [address] ED Clinical Summary Person Information Name: [facility] Age[facility] 68 Years : 1955 Sex: Male Language: Haitian PCP: Michelle Figueroa MD Marital Status: MRN: Visit Id: Visit Reason: Cellulitis - Leg; Lower leg pain-swelling; SENT BY DR MARISCAL, LEG PAIN Speciality: Acuity: 3 Enc Type: Inpatient Med Service: Emergency Arrival: 07/06/2023 12:00:42 Discharge: LOS: 000 03:16 Checkin: 07/06/2023 12:00:42 Checkout: 07/06/2023 15:16:48 Dispo Type: Admitted as IP to this [facility] EVENTS: Event Name Event Status Request [...] 14:38:53 Patient Care Request 07/06/2023 14:38:53 ADDRESS: [address] [place] [address] [facility] DOC NOTES: MEDICAL INFORMATION: Prescriptions Given: Medications [...] up: DIAGNOSIS: 1:Cellulitis of right leg Normal [facility] ED Note-Physicianon 07-06-19 ED Note-Physician [...] made to ensure accuracy, however, inadvertently computerized catalyst supervisor mistakes may be present. Appropriate healthcare PPE [...] mg= 1 (more content not included)... Normal [facility] Comment on above: Result Comment: Elec tronically Signed By: Franki Elias PA-C\.br\Date and Time Signed: 07/06/23 14:52 EDT\.br\Electronically Co-Signed By: Arnel Modi DO\.br\Date and Time Co-Signed: 07/06/23 15:54 EDT ED Patient Education Noteon 07-06-2023 ED Patient Education Note Normal [facility] ED Patient Summaryon 024 ED Patient Summary (Inserted Image. Denisha ble to display) [place] [address] Patient Discharge Instructions Person Information Name: JEAN MARIE MAST SR Age: 68 Years Arrival Date: 07/06/2023 12:00:42 Discharge Diagnosis: 1:Cellulitis of right leg Primary Care Physician: Michelle Figueroa MD Provider Information Primary Provider: Arnel Modi DO [employer] Teacher:Franki Elias PA-C The exam and treatment you received in the Emergency Department were for an urgent problem and are not intended as complete care. It is important that you follow up with a doctor, nurse practitioner, or physician?s physician assistant primary care for ongoing care. If your symptoms become worse or you do not improve as expected and you are unable to reach your usual health care provider, you should return to the Emergency Department. We are available 24 hours a day. EHRHARDT SR JEAN MARIE has been given the [...] opioids can be used to help relieve xguiypkl-oq-yborwb pain and are often prescribed following a [...] be struggling with addiction, tell your health property caretaker and ask for guidance or call [facility] National Helpline at 1-209-589-WKSJ. a Source: [place] Department of Health and Human Services/Center for Disease Control & Prevention [facility] Medications Given: Medicati (more content not included)... Normal [facility] HEMATOLOGYOrdered By: SYSTEM SYSTEM on [...] Lactic Acid Lvl 1.0 mmol/L Normal 0.5-2.2 [facility] Comment on above: Performed By: #### 2 [id number] #### [facility] [address] [place] [address] No Panel InformationOrdered By: ANGPROCESSSERVER MICROBIOLOGY on 07-06-2023 Blood Culture Charcoal No growth at 4 da ys. Final to follow at 7 days. [facility] Blood Culture Charcoal No growth at 4 da ys. Final to follow at 7 days. [facility] Progress Note - Pharmacyon 0 07-06-2023 [...] questions please contact the pharmacy at extension [phone]. Age: 68 Years Allergies: aspirin Weight: Last [...] 12:34:00) Lymph Auto: 18.3 % (07/06/23 12:34:00) [place] Auto: 8.3 % (07/06/23 12:34:00) Eos Auto: 2.8 % (07/06/23 12:34:00) Basophil Auto: 0.4 % (07/06/23 12:34:00) Neutro Absolute: 4.9 E9/L (07/06/23 12:34:00) Lymph Absolute: 1.3 E9/L (07/06/23 12:34:00) [place] Absolute: 0.6 E9/L (07/06/23 12:34:00) Eos Absolute: [...] Acid Lvl: 1 mmol/L (07/06/23 12:34:00) Normal [facility] U Creatinineon 07-06-2023 U Creatinine 93.5 mg/dL Invalid Interpretation Code [facility] Comment on above: Performed By: #### 2 [id number] #### [facility] [address] [place] [address] U Sodiumon 07-06-2023 Sodium [Moles/Vol] 127 mmol/L Invalid Interpretation Code [facility] Comment on above: Performed By: #### 2 [id number] #### [facility] [address] [place] [address] URINALYSISOrdered By: [employer] SYSTEM on 07-06-2023 Bilirubin Ql (U) Negative Normal Negativemg/ d L FT UA Auto SS Clarity (U) Clear (07/06/23 8:20 PM) Normal Clear [facility] UA Auto SS Color (U) Light-Yellow 1 (07/06/23 8:20 PM) Normal Yellow [facility] UA Auto SS Comment on above: Interpretive Data: M icroscopic readings are only performed on those samples that meet specific criteria set forth by [facility]. Glucose Ql (U) Negative [...] Desc Random Urine (07/06/23 8:20 PM) Normal [facility] UA Auto SS Work Phone: Urinalysis with Microon 06-19 Bilirubin Ql (U) Negative Normal Negative [facility] Comment on above: Performed By: #### 4 [id number] #### [facility] [address] [place] [address] Clarity (U) Clear Normal Clear [facility] Comment on above: Performed By: #### 4 [id number] #### [facility] [address] [place] [address] Color (U) Light-Yellow Normal Yellow [facility] Comment on above: Result Comment: Micr oscopic readings are only performed on those samples that meet specific criteria set forth by [facility]. Performed By: #### 4 [id number] #### [facility] [address] [place] [address] Glucose Ql (U) Negative Normal Negative [facility] Comment on above: Performed By: #### 4 [id number] #### [facility] [address] [place] [address] Hemoglobin Auto test strip (U) [Mass/Vol] Negative Normal Negative [facility] Comment on above: Performed By: #### 4 [id number] #### [facility] [address] [place] [address] Ketones Auto test strip Ql (U) Negative Normal Negative [facility] Comment on above: Performed By: #### 4 [id number] #### [facility] [address] [place] [address] Leukocyte esterase Auto test strip Ql (U) Negative Normal Negative [facility] Comment on above: Performed By: #### 4 [id number] #### [facility] [address] [place] [address] Nitrite Auto test strip Ql (U) Negative Normal Negative [facility] Comment on above: Performed By: #### 4 [id number] #### [facility] [address] [place] [address] pH (U) 5.5 [pH] Invalid Interpretation Code 5.0-9.0 [facility] Comment on above: Performed By: #### 4 [id number] #### [facility] [address] [place] [address] Protein Ql (U) Trace Abnormal Negative [facility] Comment on above: Performed By: #### 4 [id number] #### [facility] [address] [place] [address] Specific gravity (U) [Rel density] 1.020 Invalid Interpretation Code 1.005-1.030 [facility] Comment on above: Performed By: #### 4 [id number] #### [facility] [address] [place] [address] Urobilinogen (U) [Mass/Vol] Negative Normal Negative [facility] Comment on above: Performed By: #### 4 [id number] #### [facility] [address] [place] [address] Type of Urine collection method Random Urine Normal [facility] Comment on above: Performed By: #### 4 [id number] #### [facility] [address] [place] [address] eGFRon 07-06-2023 eGFR 41 mL/min/1.73 m2 Low >=59 [facility] Comment on above: Order Comment: Order added by Discern Expert. Performed By: #### 1 [id number] #### [facility] [address] [place] [address] US LE Venous Duplex Righton 07-04-2023 US [...] [place] MD Transcribed by: LALY Technologist: KR [facility] Consent for Treatmenton 06-19 Consent for Treatment [id number]#1.00T IFF [facility] Physician Orderon 07-03-2023 Physician Order [id number]#1.00TI FF [facility] CHEMISTRYOrdered By: SYSTEM SYSTEM on 11-15-2021 Prostate specific Ag [Mass/Vol] 0.8 ng/mL Normal 0.1 - 3.5 ng/mL [facility] Remisol Vital Signs Date Time Vital Sign Value Performing Clinician Facility 02-28-2024 13:00-0500 Body height 185.4 cm Michelle Figueroa MD Work Phone: [facility] 02-28-2024 13:00-0500 Body mass index (BMI) [Ratio] 32.06 kg/m2 Michelle Figueroa MD Work Phone: [facility] 02-28-2024 13:00-0500 Body temperature 98.4 [degF] Michelle Figueroa MD Work Phone: [facility] 02-28-2024 13:00-0500 Body weight 110.22 kg Michelle Figueroa MD Work Phone: [facility] 02-28-2024 13:00-0500 Diastolic blood pressure 82 mm[Hg] Michelle Figueroa MD Work Phone: [facility] 02-28-2024 13:00-0500 Heart rate 95 /min Michelle Figueroa MD Work Phone: [facility] 02-28-2024 13:00-0500 SaO2% (BldA) [Mass fraction] 96 % Michelle Figueroa MD Work Phone: [facility] 02-28-2024 13:00-0500 Systolic blood pressure 116 mm[Hg] Michelle Figueroa MD Work Phone: [facility] 12-24-2023 13:39-0500 Body height 185.4 cm Destinee Issa PA Work Phone: [facility] 12-24-2023 13:39-0500 Body mass index (BMI) [Ratio] 30.93 kg/m2 Destinee Issa PA Work Phone: [facility] 12-24-2023 13:39-0500 Body temperature 98.2 [degF] Destinee Issa PA Work Phone: [facility] 12-24-2023 13:39-0500 Body weight 106.32 kg Destinee Issa PA Work Phone: [facility] 12-24-2023 13:39-0500 Diastolic blood pressure 80 mm[Hg] Destinee Issa PA Work Phone: [facility] 12-24-2023 13:39-0500 Heart rate 123 /min Destinee Issa PA Work Phone: [facility] 12-24-2023 13:39-0500 SaO2% (BldA) [Mass fraction] 96 % Destinee Issa PA Work Phone: [facility] 12-24-2023 13:39-0500 Systolic blood pressure 138 mm[Hg] Destinee Issa PA Work Phone: [facility] 11-01-2023 15:23-0400 Body temperature 97.1 [degF] [facility] 11-01-2023 15:23-0400 Diastolic blood pressure 67 mm[Hg] [facility] 11-01-2023 15:23-0400 Heart rate 82 /min [facility] 11-01-2023 15:23-0400 Systolic blood pressure 108 mm[Hg] [facility] 10-08-2023 15:44-0400 Body height 185.42 cm [facility] 10-08-2023 15:44-0400 Body mass index (BMI) [Ratio] 30.3 kg/m2 [facility] 10-08-2023 15:44-0400 Body temperature 98.4 [degF] [facility] 10-08-2023 15:44-0400 Body weight 104.32 kg [facility] 10-08-2023 15:44-0400 Diastolic blood pressure 69 mm[Hg] [facility] 10-08-2023 15:44-0400 Heart rate 85 /min [facility] 10-08-2023 15:44-0400 Systolic blood pressure 128 mm[Hg] [facility] 08-15-2023 14:53-0400 Body height 185.42 cm [facility] 08-15-2023 14:53-0400 Body mass index (BMI) [Ratio] 31.4 kg/m2 [facility] 08-15-2023 14:53-0400 Body temperature 97.5 [degF] [facility] 08-15-2023 14:53-0400 Body weight 108 kg [facility] 08-15-2023 14:53-0400 Diastolic blood pressure 87 mm[Hg] [facility] 08-15-2023 14:53-0400 Heart rate 75 /min [facility] 08-15-2023 14:53-0400 Systolic blood pressure 135 mm[Hg] [facility] 07-25-2023 13:54-0400 Body height 185.42 cm [facility] 07-25-2023 13:54-0400 Body mass index (BMI) [Ratio] 31.6 kg/m2 [facility] 07-25-2023 13:54-0400 Body temperature 98.6 [degF] [facility] 07-25-2023 13:54-0400 Body weight 108.86 kg [facility] 07-25-2023 13:54-0400 Diastolic blood pressure 79 mm[Hg] [facility] 07-25-2023 13:54-0400 Heart rate 52 /min [facility] 07-25-2023 13:54-0400 Systolic blood pressure 142 mm[Hg] [facility] 07-10-2023 13:15-0400 Hourly Rounding Dwight Surjit [facility] 07-10-2023 12:29-0400 Hourly Rounding Dwight Surjit [facility] 07-10-2023 12:29-0400 Promise to Return Dwight Surjit [facility] 07-10-2023 12:01-0400 Heart rate 79 /min Dwight Surjit [facility] 07-10-2023 12:01-0400 SaO2% (BldA) [Mass fraction] 95 % Dwight Surjit [facility] 07-10-2023 12:00-0400 Body temperature 97.34 [degF] Dwight Surjit [facility] 07-10-2023 12:00-0400 Diastolic blood pressure 86 mm[Hg] Dwight Surjit [facility] 07-10-2023 12:00-0400 Mean blood pressure 105 mm[Hg] Dwight Surjit [facility] 07-10-2023 12:00-0400 Systolic blood pressure 142 mm[Hg] Dwight Surjit [facility] 07-10-2023 11:11-0400 Hourly Rounding Dwight Surjit [facility] 07-10-2023 11:11-0400 Promise to Return Dwight Surjit [facility] 07-10-2023 10:08-0400 Promise to Return Dwight Surjit [facility] 07-10-2023 07:51-0400 Heart rate 74 /min Dwight Orellanaer [facility] 07-10-2023 07:51-0400 SaO2% (BldA) [Mass fraction] 94 % Dwight Eddy [facility] 07-10-2023 07:50-0400 Diastolic blood pressure 81 mm[Hg] Dwight Orellanaer [facility] 07-10-2023 07:50-0400 Mean blood pressure 106 mm[Hg] Dwight Orellanaer [facility] 07-10-2023 07:50-0400 Systolic blood pressure 154 mm[Hg] Dwight Eddy [facility] 07-10-2023 07:50-0400 Body temperature 98.24 [degF] Dwight Orellanaer [facility] 07-10-2023 00:10-0400 Blood Pressure Location Dwight Eddy [facility] 07-10-2023 00:10-0400 Body temperature 98.24 [degF] Dwight Orellanaer [facility] 07-10-2023 00:10-0400 Diastolic blood pressure 69 mm[Hg] Dwight Boxcker [facility] 07-10-2023 00:10-0400 Heart rate 83 /min Dwight Orellanaer [facility] 07-10-2023 00:10-0400 Mean blood pressure 92 mm[Hg] Dwight Boxcker [facility] 07-10-2023 00:10-0400 Respiratory rate 18 /min Dwight Boxcker [facility] 07-10-2023 00:10-0400 SaO2% (BldA) [Mass fraction] 93 % Dwight Boxcker [facility] 07-10-2023 00:10-0400 Systolic blood pressure 139 mm[Hg] Dwight Orellanaer [facility] 07-09-2023 19:25-0400 Heart rate 80 /min Dwight Orellanaer [facility] 07-09-2023 19:21-0400 Respiratory rate 16 /min Dwight Boxcker [facility] 07-09-2023 19:21-0400 Body temperature 98.06 [degF] Dwight Boxcker [facility] 07-09-2023 19:21-0400 Mean blood pressure 91 mm[Hg] Dwight Orellanaer [facility] 07-09-2023 05:51-0400 Blood Pressure Location Dwight Surjit [facility] 07-09-2023 05:51-0400 Body temperature 98.24 [degF] Dwight Boxcker [facility] 07-09-2023 05:51-0400 Heart rate 73 /min Dwight Orellanaer [facility] 07-09-2023 05:51-0400 Mean blood pressure 96 mm[Hg] Dwight Boxcker [facility] 07-09-2023 05:51-0400 Respiratory rate 18 /min Dwight Boxcker [facility] 07-09-2023 00:10-0400 Blood Pressure Location Dwight Surjit [facility] 07-09-2023 00:10-0400 Body temperature 98.42 [degF] Dwight Surjit [facility] 07-09-2023 00:10-0400 Heart rate 69 /min Dwight Eddy [facility] 07-09-2023 00:10-0400 Mean blood pressure 91 mm[Hg] Dwight Eddy [facility] 04-02-2023 13:09-0500 Body height 185.4 cm Gerald Padilla MD Work Phone: [facility] 04-02-2023 13:09-0500 Body mass index (BMI) [Ratio] 31.14 kg/m2 Gerald Padilla MD Work Phone: [facility] 04-02-2023 13:09-0500 Body weight 107.05 kg Gerald Padilla MD Work Phone: [facility] 04-02-2023 13:09-0500 Diastolic blood pressure 77 mm[Hg] Gerald Padilla MD Work Phone: [facility] 04-02-2023 13:09-0500 Systolic blood pressure 137 mm[Hg] Gerald Padilla MD Work Phone: [facility] 03-21-2023 14:55-0500 Body height 185.4 cm Cynthia Pocos DO Work Phone: [facility] 03-21-2023 14:55-0500 Body mass index (BMI) [Ratio] 31.14 kg/m2 Cynthia Pocos DO Work Phone: [facility] 03-21-2023 14:55-0500 Body weight 107.05 kg Cynthia Pocos DO Work Phone: [facility] 11-21-2021 08:55-0400 Blood Pressure Location Taras BURDICK [facility] 11-21-2021 08:55-0400 Diastolic blood pressure 111 mm[Hg] Taras BURDICK [facility] 11-21-2021 08:55-0400 Heart rate 73 /min Taras BURDICK [facility] 11-21-2021 08:55-0400 Respiratory rate 16 /min Taras BURDICK [facility] 11-21-2021 08:55-0400 Systolic blood pressure 148 mm[Hg] Taras BURDICK [facility] Encounters Encounter Date Encounter Type Care Provider Facility Start: 04-23-2024 ambulatory Taras BURDICK Facility :[facility] Start: 02-28-2024 End: 02-28-2024 Bamboo flowsheet Michelle Figueroa MD Work Phone: [facility] Start: 02-28-2024 End: 02-28-2024 Bamboo flowsheet Mcihelle Figueroa MD Work Phone: [facility] [...] Not Available Start: 11-01-2023 End: 11-01-2023 ambulatory [facility] Work Phone: Start: 11-01-2023 End: 11-01-2023 Patient encounter procedure [facility] Physician [facility] Infectious Disease Work Phone: Start: 10-08-2023 End: 10-08-2023 ambulatory [facility] Work Phone: Start: 10-08-2023 End: 10-08-2023 Patient encounter procedure [facility] Physician [facility] Infectious Disease Work Phone: Start: 10-05-2023 End: 10-05-2023 ambulatory MICHELLE FIGUEROA Not Available Start: 09-12-2023 ambulatory Taras BURDICK Facility :[facility] Start: 09-12-2023 End: 09-12-2023 Patient encounter procedure Taras BURDICK [facility] Start: 09-10-2023 End: 09-10-2023 ambulatory JHONATAN MARISCAL Not Available Start: 09-04-2023 End: 09-04-2023 ambulatory Michelle Figueroa Facility:[facility] Start: 09-04-2023 End: 09-04-2023 Patient encounter procedure Taras BURDICK [facility] Start: 08-31-2023 End: 08-31-2023 ambulatory MICHELLE FIGUEROA Not Available Start: 08-27-2023 End: 08-27-2023 ambulatory JHONATAN BAUTISTACE Not Available Start: 08-16-2023 End: 08-16-2023 ambulatory MICHELLE FIGUEROA Not Available Start: 08-16-2023 End: 08-16-2023 ambulatory DO Jose Manuel Figueroa Facility:[facility] Start: 08-15-2023 End: 08-15-2023 ambulatory [facility] Work Phone: Start: 08-15-2023 End: 08-15-2023 Patient encounter procedure [facility] Infectious Disease Work Phone: Start: 08-06-2023 End: 08-07-2023 Pre-admission assessment Dixie Brandon [facility] Start: 07-27-2023 End: 07-27-2023 ambulatory JHONATAN D DOLCE Not Available Start: 07-25-2023 End: 07-25-2023 ambulatory [facility] Work Phone: Start: 07-25-2023 End: 07-25-2023 Patient encounter procedure [facility] Infectious Disease Work Phone: Start: 07-18-2023 End: 07-18-2023 ambulatory JHONATAN D DOLCE Not Available Start: 07-17-2023 End: 07-17-2023 ambulatory MICHELLE FIGUEROA Not Available Start: 07-11-2023 End: 07-11-2023 ambulatory JHONATAN D DOLCE Not Available Start: 07-10-2023 End: 07-10-2023 Non-patient / Non-visit [facility] Work Phone: Start: 07-06-2023 End: 07-10-2023 Evaluation and management of inpatient Elvira WALLER Facility:[facility] Start: 07-06-2023 Emergency department patient visit Arnel Modi Facility:[facility] Start: 07-06-2023 End: 07-10-2023 Evaluation and management of inpatient Dwight Eddy [facility] Start: 07-04-2023 End: 07-04-2023 ambulatory JHONATAN D DOLCE Not Available Start: 07-03-2023 End: 07-03-2023 ambulatory Jhonatan D Dolce Facility:[facility] Start: 07-03-2023 End: 07-03-2023 Patient encounter procedure Jhonatan Mariscal [facility] Start: 07-03-2023 End: 07-03-2023 ambulatory JHONATAN [...] Start: 04-02-2023 Kevon martinez MD [facility] Start: 04-02-2023 End: 04-02-2023 Office outpatient new 30 minutes Gerald Padilla MD Work Phone: [facility] Comment on above: Bilateral tinnitus ( Primary Dx); Sensorineural hearing loss (SNHL), bilateral Start: 04-02-2023 End: 04-02-2023 ambulatory GERALD PADILLA Not Available Start: 03-30-2023 Chart abstracting Gerald rodriguez MD Work Phone: [facility] Start: 03-26-2023 Chart abstracting Cynthia Garciao [...] encounter procedure Taras BURDICK [facility] Start: 11-15-2021 End: 11-15-2021 Patient encounter procedure Taras BURDICK [facility] Procedures Date Procedure Procedure Detail Performing [...] Insertion Hernia of abdominal cavity (disorder) Taras BURDIKC Plan of Treatment Date Care Activity Detail Author Start: 08-29-2024 End: 08-29-2024 Patient encounter procedure 08/29/2024 3:40 PM EDT Office Visit [facility] [address] [place] [phone] Michelle Figueroa MD [address] [place] [address] [facility] Start: 07-16-2024 Medicare Annual Wellness (AWV) Medicare Annual Wellness (AWV) [facility] Start: 07-16-2024 Pneumococcal Vaccine : 65+ Years (1 of 1 - PCV) Pneumococcal Vaccine: 65+ Years (1 of 1 - PCV) [facility] Comment on above: Postponed from 02/23 (Patient Refused) Start: 03-04-2024 End: 03-04-2024 Patient encounter procedure 03/04/2024 8:00 AM EST [facility] [address] [place] [address] Michelle Figueroa MD [address] [place] [address] [facility] Start: 02-28-2024 End: 02-28-2024 Patient encounter procedure 02/28/2024 1:00 PM EST Office Visit [facility] [address] [place] [phone] Michelle Figueroa MD [address] [place] [address] Arrived [facility] Comment on above: Arrived Start: 02-20-2024 Screening for malign ant neoplasm of colon Colorectal Cancer Screening [facility] Comment on above: Postponed from 02/23 (Patient Refused) Start: 12-24-2023 End: 12-24-2023 Patient encounter procedure 12/24/2023 1:30 PM EST Office Visit [facility] [address] [place] [phone] Destinee Issa, PA [address] [place] [address] Arrived [facility] Comment on above: Arrived Start: 10-21-2023 Influenza vaccination Influenza Vacc ine (#1) [facility] Start: 06-08-2023 Medicare Annual Wellness (AWV) Medicare Annual Wellness (AWV) [facility] Start: 04-23-2023 End: 04-23-2023 Patient encounter procedure 04/23/2023 3:45 PM EST Office Visit [facility] [address] [place] [phone] Cynthia Cruz, DO [address] [place] [facility] [place] [address] [facility] Start: 04-02-2023 End: 04-02-2023 ambulatory 04/02/2023 6:00 PM EST Evaluation [facility] [address] [facility] [place] [address] Sherie Hough, PT [address] [facility] [place] [address] [facility] Start: 04-02-2023 End: 04-02-2023 Patient encounter procedure [facility] [place] Comment on above: Arrived Start: 10-20-2022 Influenza vaccination Influenza Vacc ine (#1) [facility] Start: 02-23-2021 Pneumococcal Vaccine : 65+ Years (1 - PCV) Pneumococcal Vaccine: 65+ Years (1 - PCV) [facility] Start: 1955 Screening for malign ant [...] and acellular pertussis vaccine, adsorbed Taras BURDICK [facility] Payers Date Payer Category Payer Unknown [facility] [id number] 2022-Present [address] [place] [address] [id number] [facility] [id number] .[id number] 5 2021 Medicare [id number] 2021 Medicare [id number]. 1.13.693 .[id number] 2021 Medicare [id number] 1955 Unknown [id number] 2.16.840.1.274643.3.579 .2.727 1956 Unknown [id number] 2.16.840.1.256785.3.579 .2.727 1956 Unknown [id number] 2.16.840.1.282085.3.579 .2.727 1956 Unknown [id number] 2.16.840.1.563132.3.579 .2. 1956 Unknown [id number] 2.16.840.1.382874.3.579 .2. 1956 Unknown [id number] 2.16.840.1.479816.3.579 .2. 1956 Unknown [id number] 2.16.840.1.504454.3.579 .2. 1956 Unknown [id number] 2.16.840.1.617828.3.579 .2.1258 1956 Unknown [id number] 2.16.840.1.031763.3.579 .2.1258 1956 Unknown [id number] 2.16.840.1.013590.3.579 .2.1258 1956 Unknown [id number] 2.16.840.1.365060.3.579 .2.1258 1956 Unknown [id number] 2.16.840.1.721222.3.579 .2.1258 1956 Unknown [id number] 2.16.840.1.508479.3.579 .2.1258 1956 Unknown [id number] 2.16.840.1.299105.3.579 .2.1258 1956 Unknown [id number] 2.16.840.1.684682.3.579 .2.1258 1956 Unknown [id number] 2.16.840.1.239760.3.579 .2.1258 1956 Unknown [id number] 2.16.840.1.107699.3.579 .2.1258 1956 Unknown [id number] 2.16.840.1.082272.3.579 .2.1258 1956 Unknown [id number] 2.16.840.1.442956.3.579 .2.1258 1956 Unknown [id number] 2.16.840.1.812616.3.579 .2.1258 1956 Unknown [id number] 2.16.840.1.920191.3.579 .2.1258 1956 Unknown [id number] 2.16.840.1.971765.3.579 .2.1258 1956 Unknown [id number] 2.16.840.1.527434.3.579 .2.1258 1956 Unknown [id number] 2.16.840.1.575632.3.579 .2.1258 1956 Unknown [id number] 2.16.840.1.497014.3.579 .2.1258 1956 Unknown [id number] 2.16.840.1.027427.3.579 .2.1258 1956 Unknown [id number] 2.16.840.1.963186.3.579 .2.1258 1956 Unknown [id number] 2.16.840.1.192443.3.579 .2.1258 1956 Unknown [id number] 2.16.840.1.552021.3.579 .2.1258 1956 Unknown [id number] 2.16.840.1.588273.3.579 .2.1258 1956 Unknown [id number] 2.16.840.1.014004.3.579 .2.1258 1956 Unknown [id number] 2.16.840.1.723537.3.579 .2.1258 1956 Unknown [id number] 2.16.840.1.764039.3.579 .2.1258 1956 Unknown [id number] 2.16.840.1.905487.3.579 .2.1259 1956 Unknown [id number] 2.16.840.1.211348.3.579 .2.9 1956 Unknown [id number] 2.16.840.1.210985.3.579 .2.9 1956 Unknown [id number] 2.16.840.1.919722.3.579 .2.1258 1956 Unknown [id number] 2.16.840.1.708557.3.579 .2.9 1956 Unknown [id number] 2.16.840.1.352008.3.579 .2.9 1956 Unknown [id number] 2.16.840.1.001801.3.579 .2.1258 1956 Unknown [id number] 2.16.840.1.129865.3.579 .2.1258 1956 Unknown [id number] 2.16.840.1.481246.3.579 .2.9 1956 Unknown [id number] 2.16.840.1.196994.3.579 .2.9 1956 Unknown [id number] 2.16.840.1.108499.3.579 .2.1259 Unknown Regular Insurance [id number] Social History Date Type Detail Facility Start: 11-26-2019 End: 08-27-2023 Tobacco smoking status Ex-smoker (finding) [facility] Tobacco smoking status Never [facility] Start: 03-21-2023 End: 07-16-2023 Sex Assigned At Male [facility] End: 02-19-1989 History of tobacco use Current smoker [facility] End: 02-19-1989 History of tobacco use Cigarette Smoker [facility] Start: 08-12-2022 End: 08-27-2023 Tobacco use and exposure Former smokeless tobacco user [facility] End: 02-19-1989 History of tobacco use Chews Tobacco [facility] Start: 03-21-2023 End: 02-28-2024 Alcohol intake Lifetime non-drinker (finding) [facility] Start: 03-21-2023 End: 07-16-2023 History of Social function [facility] Start: 08-12-2022 Tobacco Comment Last smoked: > 10 years [facility] Start: 08-12-2022 Alcohol Comment Caffeine intak e: 3-4 cups per day soda/pop, energy drinks, tea [facility] Start: 1955 Sex Assigned At Not on file [facility] Start: 07-25-2023 Tobacco smoking status NHIS Never smoked tobacco (finding) [facility] Start: 1955 Sex Assigned At Male [facility] NEGATED: Highlighted rowStart: NINF History of tobacco use Passive smoker [facility] Functional Status Date Assessment Result Facility 07-06-2023 Functional Status N/A [facility] 07-06-2023 Functional Status [facility] 11-21-2021 Functional Status N/A [facility] Clinical Notes 11-21-2021 to 02-28-2024 Michelle Figueroa [...] of feeling unwell. 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 MEDICATIONS: Current Outpatient Medications Medication Instructions [...] (1) Never done documented in this encounter [facility] 12-24-2023 History of Present illness [...] AND PLAN: Assessment & Plan 1. Poison [place] Dermatitis. The patient presents with a rash [...] (1) Never done documented in this encounter [facility] 09-12-2023 Hospital Discharge instructions Patient [...] treatment? Where to find more information [employer]: www.cancer.org [employer] [employer]: www.auanet.org Contact a health care [...] provider. Document Revised: 08/01/2021 Document Reviewed: 08/01/2021 [employer] Patient Education 2022 [employer]. Follow Up Care 11/21/2021 09:22:02 With:JAMESON SUH, Taras Duncan, URL Address: [facility] [employer] [place] [address]- When: Unknown [facility] 07-13-2023 Note Microbiology PROCEDURE: Blood Culture Charcoal [R1] SOURCE: Blood BODY SITE: Hand R COLLECTED DATE/TIME: 07/06/2023 12:25 EDT RECEIVED DATE/TIME: 07/06/2023 13:00 EDT START DATE/TIME: 07/06/2023 13:00 EDT FREE TEXT SOURCE: Curt VARGAS, Franki Elias PA-C, Franki FINAL REPORTS Final Report [] Verified Date/Time: 07/13/2023 15:00 EDT No growth at 7 days. Performing Locations R1: This test was performed at: [facility], [address] [place] [address], [id number] [place] [address], [facility] Comment on above: Performed By: #### 1 [id number] #### [facility] [address] [place] [id number] 07-13-2023 Note Microbiology PROCEDURE: Blood Culture Charcoal [R1] SOURCE: Blood BODY SITE: Arm L COLLECTED DATE/TIME: 07/06/2023 12:34 EDT RECEIVED DATE/TIME: 07/06/2023 13:01 EDT START DATE/TIME: 07/06/2023 13:01 EDT FREE TEXT SOURCE: Curt VARGAS, Franki Elias PA-C, Franki FINAL REPORTS Final Report [] Verified Date/Time: 07/13/2023 15:00 EDT No growth at 7 days. Performing Locations R1: This test was performed at: [facility], [address] [place] [address], [id number] [place] [address], [facility] Comment on above: Performed By: #### 1 [id number] #### [facility] [address] [place] [id number] 07-11-2023 Note Microbiology PROCEDURE: Wound Culture [R1] [...] Locations R1: This test was performed at: [facility], [address] [place] [address], [facility] , , [facility] Comment on above: Performed By: #### [id number] #### [facility] [address] [place] [address] 07-10-2023 Note Admission and Discha rge Information [...] (08/04/2015), Abdominal hernia. 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 He was subsequently admitted to [facility] with acute cellulitis of the right leg secondary to infected right ankle wound and suspected erysipelas. He was also admitted with Acute kidney injury secondary to ATN from infection, meloxicam, hydrochlorothiazide and lisinopril.. He was treated with IV Invanz, IV vancomycin, IV fluid, as needed pain medications. He was seen in consultation by the infectious disease specialist as well as the flooring helper. University Controller did a bedside incision and drainage of [...] Patient to follow-up with infectious disease specialist, flooring helper as well as his primary care physician accordingly. He will also follow-up with the vascular surgeon. New medication: Zyvox 600 mg twice daily x 2 weeks. Medications discontinued: Hydrochlorothiazide Meloxicam Services Consulted Consult to Infectious Disease Physician - Ordered -- 07/09/23 17:27:00 EDT, Cellulitis right leg, Consult and Co-manage Consult to University Controller - Ordered -- 07/06/23 16:50:00 EDT, RLE [...] Marie Mccullough 07/23/2023 (more content not included)... [facility] Comment on above: Result Comment: Elec tronically Signed By: AYANNA SUH, Elvira\.br\Date and Time Signed: 07/10/23 15:51 EDT 07-10-2023 Hospital Discharge instructions Patient Education 07/10/2023 15:22:59 Cellulitis, Adult, Oday-rp-Oqgc Cellulitis, Adult Cellulitis is a skin infection. [...] Follow these instructions at home: Medicines Take gxaq-hrm-oqaednd and prescription medicines only as told by [...] provider. Document Revised: 11/17/2021 Document Reviewed: 11/17/2021 [employer] Patient Education 2022 [employer]. Follow Up Care 07/06/2023 12:01:51 With:Dixie Brandon Address: [address] [place] [address]- Business (1) When:1 to 2 weeks Comments:Call for followup appointment With:Jean Marie Mccullough Address: [address] [place] [address] Business (1) When:07/23/2023 13:45:00 With:Michelle Figueroa Address: [address] [facility] [place] [address]- Business (1) When:07/17/2023 10:00:00 With:Jhonatan Mariscal Address: [facility] [address] [place] [address]- When:07/11/2023 08:20:00 [facility] 07-10-2023 Evaluation + Plan note Extrac [...] 01:45 PM EDT [address] [place] [address]- Business (1) Additional Instructions: Michelle Figueroa 07/17/2023 10:00 AM EDT [address] [place] [address]- Business (1) Additional Instructions: Jhonatan Mariscal 07/11/2023 08:20 AM EDT [facility] [address] [place] [address]- Additional Instructions: Dixie Brandon Within 1 to 2 weeks [address] [place] [address]- Business (1) Additional Instructions: Call for followup appointment Cellulitis, Adult, Oqoe-lw-Qhyg Extracted from: Title:Infection Admission H&P * Author:Jean [...] with IV Invanz and vancomycin. Seen by flooring helper and had a bedside incision and drainage of blister/bullae. Status post wound dressing. MRI does not show any deep tissue abscess of bone involvement/osteomyelitis. Infectious disease consult pending. Vascular surgery consult can be done as outpatient. Ordered: [facility] Hospital Care/Day Moderate 35 Minutes [id number] 2. Wound of right ankle (S91.001A: Unspecified open wound, right ankle, initial encounter) Continue wound dressings. Wound cultures so far not isolating any organisms. Ordered: [facility] Hospital Care/Day Moderate 35 Minutes [id number] Wound Culture 3. Acute kidney injury (N17.9: Acute kidney failure, unspecified) Acute kidney injury secondary to ATN from above infection, diuretics and lisinopril. Improved. Lisinopril and hydrochlorothiazide suspended. Treated with IV fluid. Ordered: [facility] Hospital Care/Day Moderate 35 Minutes [id number] 4. Obese (E66.9: Obesity, unspecified) Recommend therapeutic lifestyle modification changes. Ordered: [facility] Hospital Care/Day Moderate 35 Minutes [id number] 5. HTN (hypertension) (I10: Essential (primary) hypertension) [...] made to ensure accuracy. However inadvertent computerized catalyst supervisor errors may be present. Elvira Waller. Hospitalist. [...] as infectious disease. Extracted from: Title:APSO Note Author:Evlira WALLER MD Date: 68-year-old male with histor [...] Infuse over 30 minute(s), 07/09/23 12:12:00 EDT [facility] Hospital Care/Day Moderate 35 Minutes [id number] 2. Wound of right ankle (S91.001A: Unspecified open wound, right ankle, initial encounter) Present during this admission. Wound culture. MRI of the foot pending. Ordered: ertapenem + Sodium Chloride 0.9% intravenous solution 50 mL, 500 mg = 0.5 EA, IV Piggyback, Daily, Routine, Start date 07/10/23 9:00:00 EDT, 100 mL/hr, Infuse over 30 minute(s), 07/09/23 12:12:00 EDT [facility] Hospital Care/Day Moderate 35 Minutes [id number] Wound Culture 3. Acute kidney injury (N17.9: Acute kidney failure, unspecified) Acute kidney injury secondary to ATN from above infection, diuretic and lisinopril. Improved. Avoid nephrotoxic drugs. Lisinopril and hydrochlorothiazide suspended. Treated with IV fluid. Ordered: [facility] Hospital Care/Day Moderate 35 Minutes [id number] 4. Obese (E66.9: Obesity, unspecified) Recommend therapeutic lifestyle modification changes. Ordered: [facility] Hospital Care/Day Moderate 35 Minutes [id number] 5. HTN (hypertension) (I10: Essential (primary) hypertension) [...] made to ensure accuracy. However inadvertent computerized catalyst supervisor errors may be present. Elvira Waller. Hospitalist. [...] control as needed Last for a.m. Ordered: [facility] Hospital Care/Day Moderate 35 Minutes [id number] 2. Acute kidney injury (N17.9: Acute kidney failure, unspecified) Serum creatinine down to 1.4 FENa from yesterday was 1.8; may be intrinsic and he was taking HCTZ, lisinopril and Mobic in the outpatient setting which all have been held Ordered: [facility] Hospital Care/Day Moderate 35 Minutes [id number] Orders: Basic Metabolic Panel eGFR Extra Lav [...] Ordered: Initial Hospital Care/Day Moderate 55 Minutes [id number] 2. Acute kidney injury (N17.9: Acute kidney failure, unspecified) FENa 1.8 which may be intrinsic; patient was taking HCTZ and lisinopril which had been held and he was also taking Mobic Creatinine down to 1.6 Continue to trend Ordered: Initial Hospital Care/Day Moderate 55 Minutes [id number] Orders: acetaminophen, 650 mg = 2 tab(s), [...] Diet CBC w/ Auto Diff Consult to University Controller Creatinine Urine eGFR Notify Provider Vital Signs [...] Diet CBC w/ Auto Diff Consult to University Controller Creatinine Urine Notify Provider Vital Signs Notify [...] Date:09/12/2023 03:30:00 PM Scheduled Provider:Taras BURDICK MD Location:[facility] Appointment Type:URO Office Visit Diagnostic Tests Pending * Vancomycin Level Trough 07/12/23 Future Scheduled Tests Laboratory* PSA Total 11/21/22 * Basic Metabolic Panel 07/17/23 Radiology* XR Abdomen 1 View 11/21/22 [facility]05-17-2024 NoteBasic Information Admit Date/Time:07/06/2023 14:38 Chief [...] initially his leg on Sunday felt like clys-myc-vqcixcd. 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 He quit smoking 43 years ago [...] 12:34:00) Lymph Auto: 18.3 % (07/06/23 12:34:00) [place] Auto: 8.3 % (07/06/23 12:34:00) Eos Auto: 2.8 % (07/06/23 12:34:00) Basophil Auto: 0.4 % (07/06/23 12:34:00) Neutro Ab (more content not included)...[facility]Result Comment: Electronically Signed By: Dwight Eddy DO.br\Date and Time Signed: 07/06/23 17:41 [id number] History of Present illness Narrative* Gerald Padilla [...] History: Procedure Laterality Date HERNIA REPAIR 2012 [place] REMOVAL OF KIDNEY STONE 2016 x3 Allergies [...] [facility] [id number] History of Present illness Narrative* Carlotta Morrison [...] History: Procedure Laterality Date HERNIA REPAIR 2013 [place] REMOVAL OF KIDNEY STONE 2016 x3 FAMILY [...] to Dr. Michelle Figueroa. documented in this encounterWestern [facility] [id number] Hospital Discharge instructions Patient Education 11/21/2021 09:20:07 Kidney Stones, Qjns-pr-Heyj Kidney Stones Kidney stones are rock-like masses [...] Follow these instructions at home: Medicines Take spfw-ndj-ydarepm and prescription medicines only as told by [...] 07/24/2008 Document Revised: 06/24/2019 Document Reviewed: 06/24/2019 [employer] Patient Education 2019 [employer]. Follow Up Care 01/24/2021 08:12:17 With:Taras BURDICK MD, URL Address: [address] [place], [place] [address]- When:Within 18 Month(s) Comments:w/psa and kub [facility] Evaluation + Plan note Future Appointments Appointment Date:11/21/2021 08:45:00 AM Scheduled Provider:Taras BURDICK MD Location:[facility] Appointment Type:URO [facility] Future Appointments Appointment Date:05/21/2023 08:00:00 AM Scheduled Provider:Taras BURDICK MD Location:[facility] Appointment Type:URO Office Visit Future Scheduled Tests Laboratory* PSA Total 11/21/22 Radiology* XR Abdomen 1 View 11/21/22 [facility] Evaluation + Plan note Future Appointments Appointment Date:09/12/2023 03:30:00 PM Scheduled Provider:Taras BURDICK MD Location:[facility] Appointment Type:URO Office Visit Future Scheduled Tests Laboratory* PSA Total 11/21/22 Radiology* XR Abdomen 1 View 11/21/22 [facility] Future Appointments Appointment Date:09/12/2023 03:30:00 PM Scheduled Provider:Taras BURDICK MD Location:[facility] Appointment Type:URO Office Visit Future Scheduled Tests Laboratory* PSA Total 11/21/22 * Basic Metabolic Panel 07/17/23 Radiology* XR Abdomen 1 View 11/21/22 [facility] Future Appointments Appointment Date:09/12/2023 03:30:00 PM Scheduled Provider:Taras BURDICK MD Location:[facility] Appointment Type:URO Office Visit Future Scheduled Tests Laboratory* Basic Metabolic Panel 07/17/23 [facility] Future Appointments Appointment Date:03/19/2024 03:30:00 PM Scheduled Provider:Taras BURDICK MD Location:[facility] Appointment Type:URO Office Visit Future Scheduled Tests Laboratory* PSA Free & Total 01/20/24 * Basic Metabolic Panel 07/17/23 [facility] Evaluation note* Diagnosis Hip pain, bilateral- Primary Pain in joint, pelvic region and thigh Left hip pain Pain in joint, pelvic region and thigh Lumbar spondylosis Lumbosacral spondylosis without myelopathy Degeneration of lumbar intervertebral disc Degeneration of lumbar or lumbosacral 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 syndrome Right hip impingement syndrome documented in this encounter [facility] HealthcareEvaluation note* Diagnosis Bilateral tinnitus- Primary Sensorineural hearing loss (SNHL), bilateral documented in this encounter [facility] HealthcareEvaluation noteNo assessment information availableMag[facility] Work Phone: Evaluation note* Diagnosis Onset Date Resolution Status Erysipelas of right lower extremity acute [facility] Work Phone: Evaluation note* Diagnosis Onset Date Resolution Status Erysipelas of right lower extremity acute Erysipelas of right lower extremity acute Venous (peripheral) insufficiency [facility] Work Phone: Evaluation note* Diagnosis Onset Date Resolution Status Erysipelas of right lower extremity acute Venous (peripheral) insufficiency acute Erysipelas of right lower extremity [facility] Work Phone: Evaluation note* Diagnosis Plant allergic contact dermatitis- Primary Non-recurrent acute serous otitis media of right ear documented in this encounter [facility] HealthcareEvaluation note* Diagnosis Essential hypertension ([facility]/HCC)- Primary Unspecified essential hypertension Chronic kidney disease, stage 3a (HCC) ([facility]/HCC) Nephrolithiasis Calculus of kidney Degeneration of intervertebral disc of lumbar region with discogenic back pain documented in this encounter [facility] HealthcareHospital course Narrative No data available for this section [facility] No data available for this section [facility] No data available for this section [facility] Reason for Referral Specialty Diagnoses / Procedures Referred By Contac t Referred To Contact Physical Therapy Diagnoses Hip pain, bilateral Left hip pain Lumbar spondylosis 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 Procedures [place] OFFICE/OUTPATIENT NEW HIGH MDM 60 MINUTES Cynthia Cruz, DO [address] [place] [address] Cynthia Ramirez, PT [address] [place] [address] Referral ID Status Reason Start Date Expiration Date Visits Requested Visits Authorized [id number] Authorized Consult and Treat 03/21/2023 09/17/2023 10 10 Summary Purpose Family History No Family History Records Found Advance Directives No Advanced Directives Records Found Advance Directive Response Recorded Date/ Time Advance Directives No July 24 1:47pm Chief Complaint and Reason for Visit Chief Complaint [facility] Chief Complaint [facility] Patient here for a 3 week f/u Reason for Visit Erysipelas of right lower extremity Chief Complaint [facility] Patient here for a 3 [...] pain Michelle Figueroa MD [address] [place] [address] Cynthia Cruz, DO [address] [place] [address] Referral ID Status Reason Start Date Expiration Date V isits Requested Visits Authorized [id number] Closed Specialty Services Required 03/13/2023 09/09/2023 1 [...] Michelle Figueroa MD Address: Address: [address] [place], [place] [address] [[email or web address] Home Health Occupational Therapist Relationship Specialty Start Date End Date Michelle Figueroa MD [address] [place] [address] PCP - General Family Medicine 07/05/22 Michelle Figueroa MD [address] [place] [address] PCP - ACO Reach 07/13/22 (unrecognized sect [...] CREATED AUTHOR AUTHOR'S ORGANIZ ATION 07/11/2023 [facility] DATE CREATED AUTHOR AUTHOR'S ORGANIZ ATION 07/13/2023 [facility] DATE CREATED AUTHOR AUTHOR'S ORGANIZ ATION 07/15/2023 [facility] DATE CREATED AUTHOR AUTHOR'S ORGANIZ ATION 08/23/2023 [facility] DATE CREATED AUTHOR AUTHOR'S ORGANIZ ATION 09/08/2023 [facility] DATE CREATED AUTHOR AUTHOR'S ORGANIZ ATION 09/11/2023 [facility] DATE CREATED AUTHOR AUTHOR'S ORGANIZ ATION 09/12/2023 [facility] DATE CREATED AUTHOR AUTHOR'S ORGANIZ ATION 02/21/2024 [facility] DATE CREATED AUTHOR AUTHOR'S ORGANIZ ATION 03/04/2024 [facility] dical Specialists EPIC Goals (unrecognized section [...] BE BASED ON THE PRIMARY CLINICAL RECORDS. [facility] [employer] [facility]. provides no warranty or guarantee of the accuracy or completeness of information in this document.
--- NOTE | 2024-03-27 07:32 | VEIN_ITS ---
Patient Name: JEAN MARIE MAST MR#: [id number] : 1955 Exam Date: 03/27/2024 Ordering Doctor: DR ARI WILSON M.D. RADIOLOGY REPORT PROCEDURE: [facility] EST LMTD VEIN CENTER - OFFICE VISIT FOLLOW UP COMPARISON: [facility] EST LMTD, 03/24/2024. [facility] EST TD, 09/28/2023. PROGRESS NOTES: The patient reports new onset of a palpable mass and pain along the medial right knee. The patient had concern as he had no similar symptoms with his prior treatments. Physical exam demonstrates a thrombosed varicose vein in the region the patient's palpable abnormality medial right knee. Some mild warmth is noted with no erythema. Findings are consistent with a mild thrombophlebitis in a treated superficial varicose vein. Review of the ultrasound performed the same day demonstrates occlusive thrombus extending throughout the treated right leg varicose veins with no deep vein thrombus. Thrombosed superficial varicose vein in the region the patient's palpable abnormality and pain. The patient was counseled on thrombophlebitis. I recommended treatment with ibuprofen to control the inflammatory process. VEIN/[facility] EST LMTD IMPRESSION: 1. Superficial thrombophlebitis related to a treated superficial vein medial right knee 2. No deep vein thrombus. PLAN: Ibuprofen (2) 200 milligram tablets twice per day for the next 7 days Follow-up as needed Nurse notes, history and physical were reviewed and confirmed, see attached forms. The nurse was present throughout the physical exam and consultation Dictated by: Ari Wilson MD on 03/27/2024 at 08:12 Approved by: Ari Wilson MD on 03/27/2024 at 08:22
--- NOTE | 2024-03-27 07:32 | VEIN_ITS ---
Patient Name: JEAN MARIE MAST MR#: [id number] : 1955 Exam Date: 03/27/2024 Ordering Doctor: DR ARI WILSON M.D. RADIOLOGY REPORT PROCEDURE: [facility] EXT VENOUS RT LMTD COMPARISON: [facility] EXT VENOUS RT LMTD, 03/24/2024. [facility] EXT VENOUS RT LMTD, 09/28/2023. INDICATIONS: I80.01 - Phlebitis and thrombophlebitis of superficial veins right leg TECHNIQUE: Lower extremity holder scale and Duplex Doppler evaluation of the deep venous system from the inguinal ligament through the calf veins. FINDINGS: REGION: Right lower extremity. THROMBI: Negative for DVT. Chemically induced thrombus in multiple varicose veins in area of tenderness medial distal thigh. COMPRESSIBILITY: Non-compressible segments corresponding to thrombus FLOW: Areas of no flow corresponding to thrombus CONCLUSION: Post ablation occlusion of treated right leg incompetent varicose veins. No deep vein thrombus Dictated by: Ari Wilson MD on 03/27/2024 at 07:52 Approved by: Ari Wilson MD on 03/27/2024 at 07:54
--- NOTE | 2024-03-27 08:03 | VEINCLINIC_ITS ---
Varicose Veins Patient in this day for follow up right leg venous ultrasound and exam. Patient states tenderness and a hard lump appeared on 03/24/24 after the Varithena procedure and was concerned. Ari Acevedo MD personally performed the services described in this documentation, as scribed by Esther Sy RDMS in my presence and it is both accurate and complete. Esther Acevedo RDMS, am scribing for, and in the presence of, Dr. Ari Wilson and in the presence of the patient. thigh: bilateral, knee: bilateral, calf: bilateral and ankle: bilateral aching, burning, sharp and other (itching) 10 2 years Worsened in recent months: Yes standing and sitting analgesics, elevating extremities and compression stockings Reports erythema, firmness, heaviness, limb pain, edema, leg edema and other (cellulitis, ulcer) History of lower extremity trauma: No Superficial thrombophlebitis: Yes Family history of varicose veins: no Has patient had previous lower extremity venous surgery: No Patient has previously received the following treatment(s) for lower extremity varicose veins: Reports none Does patient have a history of : not applicable Does patient intend to have future pregnancies: not applicable Has patient had lower extremity venous scan with relux testing: Yes Support hose used: Yes Problems walking or doing physical activity: Yes How does it affect you: unable to stand for periods of time Do you walk much: Yes Do you stand much: Yes Medication compliance: good Large amounts of Vitamin K: No Review of Systems ROS Narrative Ari Acevedo MD personally performed the services described in this documentation, as scribed by Esther Sy RDMS in my presence and it is both accurate and complete. Esther Acevedo RDMS, am scribing for, and in the presence of, Dr. Ari Wilson and in the presence of the patient. Status of ROS 10 or more systems reviewed and unremark able except as noted in history and below Cardiovascular Reports: edema and swelling of feet/ankles Musculoskeletal Reports: extremity pain, extremity swelling, joint pain, joint swelling, muscle cramps and muscle weakness Integumentary/Breast Reports: itching, redness, skin pain, skin tenderness, skin swelling, sores (right distal medial), non-healing lesion (right distal medial) and changes in skin color (hemosiderin staining) Hematologic/Lymphatic Reports: easy bruising PFSH [facility] Medical History (Updated 08/20/23 @ 08:45 by Esther Sy) Phlebitis and thrombophlebitis of superficial vessels of right lower extremity ?I80.01 - Phlebitis and thrombophlebitis of superficial vessels of right lower extremity (ICD-10) Phlebitis and thrombophlebitis of superficial vessels of left lower extremity ?I80.02 - Phlebitis and thrombophlebitis of superficial vessels of left lower extremity (ICD-10) Varicose veins of bilateral lower extremities with pain ?I83.813 - Varicose veins of bilateral lower extremities with pain (ICD-10) Hernia ?K46.9 - Unspecified abdominal hernia without obstruction or gangrene (ICD- 10) Abscess ?L02.91 - Cutaneous abscess, unspecified (ICD-10) Cellulitis ?L03.90 - Cellulitis, unspecified (ICD-10) Kidney stone ?N20.0 - Calculus of kidney (ICD-10) Hypertension ?I10 - Essential (primary) hypertension (ICD-10) Gout ?M10.9 - Gout, unspecified (ICD-10) Surgical History (Updated 08/20/23 @ 08:45 by Esther Sy) Status post ablation of incompetent vein using laser ?Z98.890 - Other specified postprocedural states (ICD-10) History of hernia repair ?Z98.890 - Other specified postprocedural states (ICD-10) ?Z87.19 - Personal history of other diseases of the digestive system (ICD-10) Family History (Updated 08/20/23 @ 08:48 by Esther Sy) Father Family history of cancer Family history of diabetes mellitus Mother Family history of hypertension Social History (Updated 08/20/23 @ 08:49 by Esther Sy) Within the past year, how often did you have a drink containing alcohol: monthly or less Smoking status: Former smoker What tobacco products do you use: cigarettes Packs per day: 0.5 Years smoked: 20 Smoking pack-years: 10.00 Smoking quit date/years: >15 years ago Non-prescribed substance use: denies use Meds Home Medications and Allergies Home Medications ?Medication ?Instructions ?Recorded ?Confirmed ?Type Lactobacillus acidophilus 10 100 mmu cells PO DAILY 08/20/23 08/20/23 History billion cell capsule (Probacap) allopurinol 200 mg tablet 200 mg PO DAILY 08/20/23 08/20/23 History amlodipine 5 mg tablet 5 mg PO DAILY 08/20/23 08/20/23 History linezolid 600 mg tablet 600 mg PO BID 08/20/23 08/20/23 History Allergies Allergy/AdvReac Type Severity Reaction Status Date / Time aspirin Allergy Unknown Verified 08/10/23 17:07 Exam Narrative Exam Narrative: Patient presents with a hard lump and tenderness along the medial distal right thigh x 4 days. Ari Acevedo MD personally performed the services described in this documentation, as scribed by Esther Sy RDMS in my presence and it is both accurate and complete. Esther Acevedo RDMS, am scribing for, and in the presence of, Dr. Ari Wilson and in the presence of the patient. Constitutional Documenting provider has reviewed patient's vital signs: yes Common normals: oriented x3 General appearance: cooperative Lymph Lymphatic: no lymphedema noted Chest Common normals: inspection of chest normal Respiratory Common normals: normal respiratory effort Cardio Rate: regular rate Rhythm: regular rhythm Peripheral pulses: posterior tibial pulses present and dorsalis pedis pulses present GI Common normals: Normal to inspection, nondistended, normoactive bowel sounds present Extremity General: calf tenderness (right lower leg tenderness and numbness), edema (Right lower extremity edema significantly improved) and other findings (Non-healing ulcer right distal medial lower leg) Right lower extremity: lower leg Right lower leg: inspection Left lower extremity: lower leg Left lower leg: inspection Neuro Common normals: oriented x3 Results Imaging Venous US: Radiologist's impression: Chemically induced thrombus in multiple varicose veins in right leg. Ari Acevedo MD personally performed the services described in this documentation, as scribed by Esther Sy RDMS in my presence and it is both accurate and complete. Esther Acevedo RDMS, am scribing for, and in the presence of, Dr. Ari Wilson and in the presence of the patient. Assessment and Plan Assessment and Plan (1) Phlebitis and thrombophlebitis of superficial vessels of right lower extremity: Plan Discussed with patient about the inflammation of the vessel that was previously treated and advised to use ice and ibuprofen or Tylenol for pain as needed. Patient is finished with treatment at this time. IAri MD personally performed the services described in this documentation, as scribed by Esther Sy RDMS in my presence and it is both accurate and complete. I, Esther Sy RDMS, am scribing for, and in the presence of, Dr. Ari Wilson and in the presence of the patient.
== END 2024-03-27 08:46 | disposition home or self-care (01) ==
PROVIDERS: PCP Radiology Diagnostic Radiology; Visit Provider Radiology Diagnostic Radiology
DX: I80.01 Phlebitis and thrombophlebitis of superficial vessels of right lower extremity (principal)
CPT/HCPCS: 93971; G0463